=== PATIENT | female | born 1930 | race American Indian/Alaskan Native ===

== ENCOUNTER 2016-09-28 07:34 | Inpatient (IN) | payer MEDICARE ==
[2016-09-28 08:58] LABS: Hematocrit 26.9 % (30.3-42.9); Hemoglobin 8.5 gm/dl (10.1-14.3); Mean Corpuscular HGB Conc 32 % (30-34); Mean Corpuscular Hemoglobin 26 pg (28-32); Mean Corpuscular Volume 82 fl (79-97); Platelet Count 319 K/mm3 (140-440); Red Blood Count 3.26 M/mm3 (3.65-5.03); Red Cell Distribution Width 16.8 % (13.2-15.2); White Blood Count 10.7 K/mm3 (4.5-11.0)
[2016-09-28 09:09] LABS: Calcium 8.2 mg/dL (8.4-10.2); Chloride 101.4 mmol/L (98-107); Potassium 3.7 mmol/L (3.6-5.0)
--- NOTE | 2016-09-28 09:43 | XRay Report ---
CHEST X-RAY, 2 VIEWS: HISTORY: Shortness of breath. FINDINGS: Mild cardiomegaly has developed which appears to be new since 12/20/15. Pulmonary vascularity is borderline. The lungs are clear. No evidence for pneumonia, CHF or pneumothorax. IMPRESSION: Mild cardiomegaly.
[2016-09-28 09:55] LABS: Basophils % (Manual) 0 % (0.0-1.8); Blastocytes % (Manual) 0 %; Eosinophils % (Manual) 0 % (0.0-4.3)
[2016-09-28 09:56] LABS: Anisocytosis 1+; Diff Status Complete; Poikilocytosis 1+; Polychromasia 1+; Spherocytes 1+; Stomatocytes Rare; Target Cells Rare
[2016-09-28] MEDS ORDERED: ZOFRAN IV ONE (10:53)
[2016-09-28] MEDS ORDERED: TESSALON PERLES PO ONE (10:53)
[2016-09-28] MEDS ORDERED: MORPHINE IV ONE (10:53)
[2016-09-28] MEDS ORDERED: CATAPRES PO ONE (10:53)
[2016-09-28] MEDS ORDERED: PROTONIX IV ONE (10:54)
--- NOTE | 2016-09-28 11:07 | Emergency Department Report ---
- General Chief Complaint: Dyspnea/Respdistress Stated Complaint: SOB/FATIGUE/VOMITING Time Seen by Provider: 09/28/16 10:10 Source: patient, family Mode of arrival: Ambulatory Limitations: Other - History of Present Illness Initial Comments: 85-year-old female with multiple medical problems presents with cough productive of green phlegm and coffee-ground emesis intermittently 2 days. Several episodes of posttussive vomiting. Poor by mouth intake. Pain around colostomy site and skin area. Good colostomy output without melena or hematochezia. BP elevated. Patient did not have her morning medications. 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 History of blood transfusion for anemia in the past. MD Complaint: cough -: days(s) (2) Severity: moderate Quality: aching (diffuse, head, abd, myalgias) Consistency: constant Improves With: nothing Worsens With: other (cough) Context: other (denies travel, sick contacts) Associated Symptoms: myalgias, cough, shortness of breath, abdominal pain, nausea, vomiting (coffee grounds 2-3 episodes), weight loss, other (no melena, no blood in stool). denies: fever, chills, diaphoresis, stiff neck, chest pain , diarrhea, dysuria, rash, right sweats Treatments Prior to Arrival: none - Related Data Home Medications Medication Instructions Recorded Confirmed Last Taken Carvedilol [Coreg] 25 mg PO BID 04/03/15 09/28/16 09/28/16 Mirtazapine 7.5 mg PO QHS 09/28/16 09/28/16 09/28/16 Allergies Allergy/AdvReac Type Severity Reaction Status Date / Time No Known Allergies Allergy Verified 03/18/15 10:53 ED Review of Systems ROS: Stated complaint: SOB/FATIGUE/VOMITING Other details as noted in HPI Comment: All other systems reviewed and negative Other: Constitutional: No fevers chills Eyes: No eye pain visual changes ENT: No ear pain or throat pain Neck: Denies pain Respiratory: As per HPI Cardiovascular: Denies chest pain GI: As per HPI : Denies dysuria Musculoskeletal: Diffuse body pain Skin: Denies rash, lesions, erythema Neurologic: Positive headache Psychiatric: Denies suicidal ideation, hallucinations ED Past Medical Hx - Past Medical History Previous Medical History?: Yes Hx Hypertension: Yes (27YRS) Hx Congestive Heart Failure: Yes Hx Deep Vein Thrombosis: Yes Hx Renal Disease: Yes Hx Arthritis: Yes Hx Asthma: Yes Hx COPD: Yes Additional medical history: Anemia requiring blood transfusion - Surgical History Past Surgical History?: Yes Additional Surgical History: FILTER FOR CLOTS. 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 - Social History Smoking Status: Never Smoker Substance Use Type: None - Medications Home Medications: Home Medications Medication Instructions Recorded Confirmed Last Taken Type Carvedilol [Coreg] 25 mg PO BID 04/03/15 09/28/16 09/28/16 History Mirtazapine 7.5 mg PO QHS 09/28/16 09/28/16 09/28/16 History ED Physical Exam - General Limitations: Other - Other Other exam information: General: No limitations, mild distress secondary to pain Head exam: Atraumatic, normocephalic Eyes exam: Normal appearance ENT: Moist mucous membrane, normal oropharynx Neck exam: Normal inspection, full range of motion, no meningismus nontender Respiratory exam: Mild crackle at the bases. Frequent coughing productive of greenish sputum Cardiovascular: Normal rate and rhythm, normal heart sounds Abdomen: Soft, nondistended, left lower quadrant colostomy, pink stoma, mild tenderness around colostomy site, brown colostomy output without melena or gross blood. Normal bowel sounds. No rebound or guarding. Extremity: Full range of motion normal inspection no deformity Back: Normal Inspection, full range of motion, no tenderness Neurologic: Alert, oriented x3, cranial nerves intact, no motor or sensory deficit Psychiatric: normal affect, normal mood Skin: Warm, dry, intact ED Course Vital Signs 09/28/16 09/28/16 09/28/16 07:57 09:16 09:44 Temperature 99.6 F 99.5 F Pulse Rate 95 H 95 H Respiratory 20 20 20 Rate Blood Pressure 202/125 Blood Pressure 196/101 [Right] O2 Sat by Pulse 95 92 95 Oximetry - Reevaluation(s) Reevaluation #1: 09/28/16 11:09 Zofran, morphine, clonidine, Tessalon Perles, and azithromycin ordered in the ED. 09/28/16 11:16 ED Medical Decision Making - Lab Data Result diagrams: 09/28/16 08:23 09/28/16 08:23 Lab Results 12/29/16 12/29/16 12/29/16 Range/Units 07:44 08:23 08:23 WBC 10.7 (4.5-11.0) K/mm3 RBC 3.26 L (3.65-5.03) M/mm3 Hgb 8.5 L (10.1-14.3) gm/dl Hct 26.9 L (30.3-42.9) % MCV 82 (79-97) fl MCH 26 L (28-32) pg MCHC 32 (30-34) % RDW 16.8 H (13.2-15.2) % Plt Count 319 (140-440) K/mm3 Add Manual Diff Complete Total Counted 100 Seg Neutrophils % Design Transferrer Seg Neuts % (Manual) 66.0 (40.0-70.0) % Band Neutrophils % 21.0 % Lymphocytes % (Manual) 3.0 L (13.4-35.0) % Reactive Lymphs % (Man) 0 % Monocytes % (Manual) 7.0 (0.0-7.3) % Eosinophils % (Manual) 0 (0.0-4.3) % Basophils % (Manual) 0 (0.0-1.8) % Metamyelocytes % 2.0 % Myelocytes % 1.0 % Promyelocytes % 0 % Blast Cells % 0 % Nucleated RBC % Not Reportable Seg Neutrophils # Man 7.1 (1.8-7.7) K/mm3 Band Neutrophils # 2.2 K/mm3 Lymphocytes # (Manual) 0.3 L (1.2-5.4) K/mm3 Abs React Lymphs (Man) 0.0 K/mm3 Monocytes # (Manual) 0.7 (0.0-0.8) K/mm3 Eosinophils # (Manual) 0.0 (0.0-0.4) K/mm3 Basophils # (Manual) 0.0 (0.0-0.1) K/mm3 Metamyelocytes # 0.2 K/mm3 Myelocytes # 0.1 K/mm3 Promyelocytes # 0.0 K/mm3 Blast Cells # 0.0 K/mm3 WBC Morphology Not Reportable Hypersegmented Neuts Not Reportable Hyposegmented Neuts Not Reportable Hypogranular Neuts Not Reportable Smudge Cells Not Reportable Toxic Granulation Not Reportable Toxic Vacuolation Not Reportable Dohle Bodies Not Reportable Pelger-Huet Anomaly Not Reportable Aida Rods Not Reportable Platelet Estimate Appears normal Clumped Platelets Not Reportable Plt Clumps, EDTA Not Reportable Large Platelets Not Reportable Giant Platelets Not Reportable Platelet Satelliting Not Reportable Plt Morphology Comment Not Reportable RBC Morphology Not Reportable Dimorphic RBCs Not Reportable Polychromasia 1+ Hypochromasia Not Reportable Poikilocytosis 1+ Anisocytosis 1+ Microcytosis Not Reportable Macrocytosis Not Reportable Spherocytes 1+ Pappenheimer Bodies Not Reportable Sickle Cells Not Reportable Target Cells Rare Tear Drop Cells Not Reportable Ovalocytes Not Reportable Stomatocytes Rare Helmet Cells Not Reportable [place] Bodies Not Reportable [place] Rings Not Reportable Bernard Cells Not Reportable Bite Cells Not Reportable Crenated Cell Not Reportable Elliptocytes Not Reportable Acanthocytes (Spur) Not Reportable Rouleaux Not Reportable Hemoglobin C Crystals Not Reportable Schistocytes Not Reportable Malaria parasites Not Reportable Jalil Bodies Not Reportable Hem Pathologist Commnt No Sodium 140 (137-145) mmol/L Potassium 3.7 (3.6-5.0) mmol/L Chloride 101.4 (98-107) mmol/L Carbon Dioxide 17 L (22-30) mmol/L Anion Gap 25 mmol/L BUN 31 H (7-17) mg/dL Creatinine 3.1 H (0.7-1.2) mg/dL Estimated GFR 17 ml/min BUN/Creatinine Ratio 10.00 % Glucose 161 H (65-100) mg/dL POC Glucose 166 H (70-105) Calcium 8.2 L (8.4-10.2) mg/dL Troponin T 0.194 H* (0.00-0.029) ng/mL Triglycerides 89 (2-149) mg/dL Cholesterol 151 (50-199) mg/dL LDL Cholesterol Direct 69 (50-130) mg/dL HDL Cholesterol 65 H (40-59) mg/dL Cholesterol/HDL Ratio 2.32 % - EKG Data -: EKG Interpreted by Me (sinus, frequent PVCs, rate 94, RBB, LAFB) - EKG Data When compared to previous EKG there are: no significant change (compared to ) - Radiology Data Radiology results: report reviewed Chest x-ray PA and lateral: Mild cardiomegaly, borderline pulmonary vasculature 12/20/2015 - Medical Decision Making Vomiting appears to be intermittent and without any signs of current GI bleeding. Chronic renal insufficiency at baseline the patient now has a slightly elevated troponin likely secondary to chronic renal insufficiency but has been negative in the past. Patient denies chest pain but does complain of shortness of breath. Repeat cardiac enzymes pending. Patient will be admitted due to her current respiratory symptoms and possible chest x-ray changes. Antibiotics/azithromycin initiated - Differential Diagnosis pneumonia, bronchitis, CHF, PUD, esophagitis Critical Care Time: No Critical care attestation.: If time is entered above; I have spent that time in minutes in the direct care of this critically ill patient, excluding procedure time. ED Disposition Clinical Impression: Elevated troponin, Colostomy in place Acute bronchitis Qualifiers: Bronchitis organism: other organism Qualified Code(s): J20.8 - Acute bronchitis due to other specified organisms CHF (congestive heart failure) Qualifiers: Congestive heart failure type: unspecified congestive heart failure type Congestive heart failure chronicity: unspecified congestive heart failure chronicity Qualified Code(s): I50.9 - Heart failure, unspecified HTN (hypertension) Qualifiers: Hypertension type: essential hypertension Qualified Code(s): I10 - Essential ( primary) hypertension Chronic renal insufficiency Qualifiers: Chronic kidney disease stage: unspecified stage Qualified Code(s): N18.9 - Chronic kidney disease, unspecified Anemia Qualifiers: Anemia type: unspecified type Qualified Code(s): D64.9 - Anemia, unspecified Vomiting Qualifiers: Vomiting type: unspecified Vomiting Intractability: non-intractable Nausea presence: with nausea Qualified Code(s): R11.2 - Nausea with vomiting, unspecified Disposition: OP ADMITTED IP TO THIS HOSP Is pt being admited?: Yes Condition: Stable Time of Disposition: 11:14 (Dr. Beach/ hosp)
[2016-09-28] MEDS ORDERED: ZITHROMAX 500 MG in NACL 0.9% 250ML 250 ML IV ONE (11:30)
--- NOTE | 2016-09-28 11:53 | Admit Criteria Form ---
Admission Criteria Documentation: PULMONARY DISEASE GRG Clinical Indications for Admission to Inpatient Care ( Place 'X' for any and all applicable criteria): Hospital admission is needed for appropriate care of the patient because of ANY ONE of the following(1): [ ]I. Impending or actual respiratory arrest ( Use Respiratory Failure Criteria for severe respiratory disease and long-term mechanical ventilation patients) (4) [ X]II. Severe airflow or ventilation abnormalities (not responsive to emergency and observation care treatment as appropriate) as indicated by ANY ONE of the following(5)(6)(7)(8) : [ ]a) PCO2 > 42 mm Hg (5.6 kPa) and pH < 7.35 (new) [ ]b) Documented PCO2 increase > 5 mm Hg (0.7 kPa) from disease baseline [ ]c) Airflow measurements[A] < 60% of previous best or predicted ( e.g., PEF <300 L/minute) despite intensive emergent treatment[B] [X ]d) Required respiratory treatments that are performable only in acute inpatient setting [ ]III. Severe respiratory findings (not responsive to emergency and observation care treatment as appropriate) including ANY ONE of the following(5)(8)(9): []a) Respiratory distress as indicated by ALL of the following(5)(10): [ ]i) Patient with ANY ONE of the following: [ ]1) Dyspnea (difficulty breathing) [ ]2) Abnormal breathing pattern (eg, chest retractions) [ ]3) Tachypnea [ ]4) Other evidence of difficulty breathing [ ]ii) Evidence of respiratory compromise indicated by ANY ONE of the following: [ ]1) Hypoxemia [ ]2) Altered mental status [ ]3) Other evidence of respiratory compromise (eg, pulmonary edema on chest x-ray) [ ]b) Stridor [ ]c) Gross hemoptysis(11) [ ]d) Acute cyanosis [ ]IV. High-risk pulmonary infection as indicated by ANY ONE of the following( 19)(20)(21)(22): [ ]a) Temperature less than 95 degrees F(35 degrees C) or greater than 103.1 degrees F(39.5 degrees C) [ ]b) Hemodynamic instability that remains after emergency or observation level care (as appropriate) [ ]c) Immunocompromised patient (eg, AIDS, post transplant, neutropenic) [ ]d) History of severe COPD [ ]e) History of severely symptomatic congestive heart failure [ ]f) Other high-risk comorbidity (eg, poorly controlled diabetes, cirrhosis, chronic renal insufficiency) [ ]g) Hypoxemia (new) [ ]h) Outpatient, observation, or recovery facility therapy has failed, is not appropriate, or is not feasible [ ]V. Severe atelectasis or lung collapse(15)(16) [ ]. Tuberculosis requiring inpatient treatment as indicated by ANY ONE of the following(17)(18): [ ]a) New positive acid-fast bacilli sputum smear [ ]b) Positive acid-fast bacilli smear (under current treatment), with ANY ONE of the following: [ ]i) Unexposed household contacts [ ]ii) Infants or immunosuppressed household contacts [ ]iii) Patient unable or unwilling to avoid exposing others [ ]iv) Severe immunocompromised patient (eg, AIDS, post transplant, neutropenic) [ ]VII. Empyema or lung abscess(13)(14) [ ]VIII. Severe pulmonary arterial hypertension or pulmonary vascular disease requiring inpatient care indicated by ANY ONE of the following(24)(25): [ ]a) Initiation or change of vasodilators (IV, subcutaneous, or inhaled) or other vasoactive medications needed [ ]b) IV anticoagulation needed (eg, immediate anticoagulation necessary, alternatives not appropriate) [ ]c) Arterial or pulmonary artery catheter monitoring needed due to infusion or other treatment [ ]IX. Chronic lung disease with severe deterioration (not responsive to emergency and observation care treatment as appropriate) as indicated by ANY ONE of the following (6)(12): [ ]a) SaO2 5% below baseline in patient with chronic hypoxemia [ ]b) New requirement for supplemental oxygen to keep SaO2 at baseline or acceptable level [ ]c) Required supplemental oxygen performable only in acute inpatient setting [ ]d) Severe airflow or ventilation abnormalities [ ]e) Rapid rate of exacerbation onset [ ]f) Previously mobile patient unable to walk between rooms [ ]g) Inability to eat or sleep due to dyspnea [ ]h) Altered mental status [ ]X. Cystic fibrosis with severe deterioration as indicated by ANY ONE of the following(26)(27): [ ]a) Severe exacerbation that does not respond to intensified home therapy [ ]b) Pneumonia [ ]c) Hemoptysis [ ]d) Atelectasis [ ]e) Pneumothorax [ ]f) Respiratory failure [ ]g) Severe exacerbation with patient unable to perform prescribed treatments at home [ ]XI. Severe right heart failure as indicated by ANY ONE of the following(24) (25): [ ]a) Increasing organ failure (eg, liver congestion with significant and worsening or new elevation of transaminases) [ ]b) Anasarca [ ]c) Angina that requires inpatient care (eg, not treatable in emergency or observation level of care) [ ]d) Respiratory distress [ ]e) Syncope [ ]f) SBP < 90 mm Hg (new) [ ]XII. Injury requiring inpatient care (medical) as indicated by ANY ONE of the following(28): [ ]a) Significant inhalation injury (eg, smoke inhalation, other toxic inhalation) (29)(30)(31) [ ]b) Airway obstruction that remains or is unstable after emergency or observation level care(32) [ ]c) Severe pain requiring acute inpatient management [ ]d) Lung contusion [ ]e) Bronchial tree injury [ ]f) Air or fat emboli(33) [ ]g) Other injury not treatable in emergency or observation level care (eg, hemothorax) (34) [ ]XIII. Pulmonary hemorrhage or significant hemoptysis(11)(35)(36) [ ]XIV. Inpatient palliative care needed[C](37)(38)(39)(40) [ ]XV. Complications of lung transplant (eg, rejection, failure, respiratory infection) (23) [ ]XVI. Pulmonary Disease and ANY ONE of the following: [ ]a) General Admission Criteria [ ]b) Pediatric General Admission Criteria The original [facility] [employer] content created by [facility] has been revised. The portions of the content which have been revised are identified through the use of italic text or in bold, and [facility] has neither reviewed nor approved the modified material. All other unmodified content is copyright [facility]. Please see references footnoted in the original [facility] edition 2016 Admission Criteria Met: Yes
--- NOTE | 2016-09-28 13:00 | History and Physical Report ---
History of Present Illness Date of examination: 09/28/16 Date of admission: 09/28/16 Chief complaint: sob, cough History of present illness: This is an 85-year-old female presents with chief complaint of cough and shortness of breath for the past 2 days. Patient states that she has had cough productive of green, brown and yellow sputum intermittently over the past 2 days. Patient denies any subjective fever chills. Patient does report generalized malaise and myalgias. Patient denies any chest pain. Patient states that her shortness of breath is worse with exertion. Patient reports poor appetite but good colostomy output without melena or hematochezia. Patient denies any headache or visual disturbances. Past History Past Medical History: arthritis, COPD, diabetes, heart failure, hypertension Past Surgical History: No surgical history Social history: no significant social history Family history: no significant family history Medications and Allergies Allergies Allergy/AdvReac Type Severity Reaction Status Date / Time No Known Allergies Allergy Verified 03/18/15 10:53 Home Medications Medication Instructions Recorded Confirmed Last Taken Type Carvedilol [Coreg] 25 mg PO BID 04/03/15 09/28/16 09/28/16 History Mirtazapine 7.5 mg PO QHS 09/28/16 09/28/16 09/28/16 History Review of Systems All systems: negative Exam - Constitutional Vitals: Temp Pulse Resp BP Pulse Ox 99.5 F 99 H 20 201/108 95 09/28/16 09:16 09/28/16 11:38 09/28/16 09:44 09/28/16 11:38 09/28/16 09:44 General appearance: Present: no acute distress, well-nourished - EENT Eyes: Present: PERRL ENT: hearing intact, clear oral mucosa - Neck Neck: Present: supple, normal ROM - Respiratory Respiratory effort: normal Respiratory: bilateral: diminished, rhonchi, wheezing (faint) - Cardiovascular Heart Sounds: Present: S1 & S2. Absent: rub, click - Extremities Extremities: pulses symmetrical, No edema Peripheral Pulses: within normal limits - Abdominal General gastrointestinal: Present: soft, non-tender, non-distended, normal bowel sounds Female genitourinary: Present: normal - Integumentary Integumentary: Present: clear, warm, dry - Musculoskeletal Musculoskeletal: gait normal, strength equal bilaterally - Psychiatric Psychiatric: appropriate mood/affect, intact judgment & insight - Neurologic Neurologic: CNII-XII intact, moves all extremities Results - Labs CBC & Chem 7: 09/28/16 08:23 09/28/16 08:23 Labs: Laboratory Last Values WBC 10.7 K/mm3 (4.5-11.0) 09/28/16 08:23 RBC 3.26 M/mm3 (3.65-5.03) L 09/28/16 08:23 Hgb 8.5 gm/dl (10.1-14.3) L 09/28/16 08:23 Hct 26.9 % (30.3-42.9) L 09/28/16 08:23 MCV 82 fl (79-97) 09/28/16 08:23 MCH 26 pg (28-32) L 09/28/16 08:23 MCHC 32 % (30-34) 09/28/16 08:23 RDW 16.8 % (13.2-15.2) H 09/28/16 08:23 Plt Count 319 K/mm3 (140-440) 09/28/16 08:23 Add Manual Diff Complete 09/28/16 08:23 Total Counted 100 09/28/16 08:23 Seg Neutrophils % Hand Driller 09/28/16 08:23 Seg Neuts % (Manual) 66.0 % (40.0-70.0) 09/28/16 08:23 Band Neutrophils % 21.0 % 09/28/16 08:23 Lymphocytes % (Manual) 3.0 % (13.4-35.0) L 09/28/16 08:23 Reactive Lymphs % (Man) 0 % 09/28/16 08:23 Monocytes % (Manual) 7.0 % (0.0-7.3) 09/28/16 08:23 Eosinophils % (Manual) 0 % (0.0-4.3) 09/28/16 08:23 Basophils % (Manual) 0 % (0.0-1.8) 09/28/16 08:23 Metamyelocytes % 2.0 % 09/28/16 08:23 Myelocytes % 1.0 % 09/28/16 08:23 Promyelocytes % 0 % 09/28/16 08:23 Blast Cells % 0 % 09/28/16 08:23 Nucleated RBC % Not Reportable 09/28/16 08:23 Seg Neutrophils # Man 7.1 K/mm3 (1.8-7.7) 09/28/16 08:23 Band Neutrophils # 2.2 K/mm3 09/28/16 08:23 Lymphocytes # (Manual) 0.3 K/mm3 (1.2-5.4) L 09/28/16 08:23 Abs React Lymphs (Man) 0.0 K/mm3 09/28/16 08:23 Monocytes # (Manual) 0.7 K/mm3 (0.0-0.8) 09/28/16 08:23 Eosinophils # (Manual) 0.0 K/mm3 (0.0-0.4) 09/28/16 08:23 Basophils # (Manual) 0.0 K/mm3 (0.0-0.1) 09/28/16 08:23 Metamyelocytes # 0.2 K/mm3 09/28/16 08:23 Myelocytes # 0.1 K/mm3 09/28/16 08:23 Promyelocytes # 0.0 K/mm3 09/28/16 08:23 Blast Cells # 0.0 K/mm3 09/28/16 08:23 WBC Morphology Not Reportable 09/28/16 08:23 Hypersegmented Neuts Not Reportable 09/28/16 08:23 Hyposegmented Neuts Not Reportable 09/28/16 08:23 Hypogranular Neuts Not Reportable 09/28/16 08:23 Smudge Cells Not Reportable 09/28/16 08:23 Toxic Granulation Not Reportable 09/28/16 08:23 Toxic Vacuolation Not Reportable 09/28/16 08:23 Dohle Bodies Not Reportable 09/28/16 08:23 Pelger-Huet Anomaly Not Reportable 09/28/16 08:23 Aida Rods Not Reportable 09/28/16 08:23 Platelet Estimate Appears normal 09/28/16 08:23 Clumped Platelets Not Reportable 09/28/16 08:23 Plt Clumps, EDTA Not Reportable 09/28/16 08:23 Large Platelets Not Reportable 09/28/16 08:23 Giant Platelets Not Reportable 09/28/16 08:23 Platelet Satelliting Not Reportable 09/28/16 08:23 Plt Morphology Comment Not Reportable 09/28/16 08:23 RBC Morphology Not Reportable 09/28/16 08:23 Dimorphic RBCs Not Reportable 09/28/16 08:23 Polychromasia 1+ 09/28/16 08:23 Hypochromasia Not Reportable 09/28/16 08:23 Poikilocytosis 1+ 09/28/16 08:23 Anisocytosis 1+ 09/28/16 08:23 Microcytosis Not Reportable 09/28/16 08:23 Macrocytosis Not Reportable 09/28/16 08:23 Spherocytes 1+ 09/28/16 08:23 Pappenheimer Bodies Not Reportable 09/28/16 08:23 Sickle Cells Not Reportable 09/28/16 08:23 Target Cells Rare 09/28/16 08:23 Tear Drop Cells Not Reportable 09/28/16 08:23 Ovalocytes Not Reportable 09/28/16 08:23 Stomatocytes Rare 09/28/16 08:23 Helmet Cells Not Reportable 09/28/16 08:23 Munoz-Temperance Bodies Not Reportable 09/28/16 08:23 Morton Rings Not Reportable 09/28/16 08:23 Bernard Cells Not Reportable 09/28/16 08:23 Bite Cells Not Reportable 09/28/16 08:23 Crenated Cell Not Reportable 09/28/16 08:23 Elliptocytes Not Reportable 09/28/16 08:23 Acanthocytes (Spur) Not Reportable 09/28/16 08:23 Rouleaux Not Reportable 09/28/16 08:23 Hemoglobin C Crystals Not Reportable 09/28/16 08:23 Schistocytes Not Reportable 09/28/16 08:23 Malaria parasites Not Reportable 09/28/16 08:23 Jalil Bodies Not Reportable 09/28/16 08:23 Hem Pathologist Commnt No 09/28/16 08:23 Sodium 140 mmol/L (137-145) 09/28/16 08:23 Potassium 3.7 mmol/L (3.6-5.0) 09/28/16 08:23 Chloride 101.4 mmol/L (98-107) 09/28/16 08:23 Carbon Dioxide 17 mmol/L (22-30) L 09/28/16 08:23 Anion Gap 25 mmol/L 09/28/16 08:23 BUN 31 mg/dL (7-17) H 09/28/16 08:23 Creatinine 3.1 mg/dL (0.7-1.2) H 09/28/16 08:23 Estimated GFR 17 ml/min 09/28/16 08:23 BUN/Creatinine Ratio 10.00 % 09/28/16 08:23 Glucose 161 mg/dL (65-100) H 09/28/16 08:23 POC Glucose 166 (70-105) H 09/28/16 07:44 Calcium 8.2 mg/dL (8.4-10.2) L 09/28/16 08:23 Troponin T 0.194 ng/mL (0.00-0.029) H* 09/28/16 08:23 Triglycerides 89 mg/dL (2-149) 09/28/16 08:23 Cholesterol 151 mg/dL (50-199) 09/28/16 08:23 LDL Cholesterol Direct 69 mg/dL (50-130) 09/28/16 08:23 HDL Cholesterol 65 mg/dL (40-59) H 09/28/16 08:23 Cholesterol/HDL Ratio 2.32 % 09/28/16 08:23 Blood Type B POSITIVE 09/28/16 12:12 Assessment and Plan Assessment and plan: 1. Acute bronchitis. Patient will be admitted and placed on IV antibiotics. We will follow-up chest x-ray. Patient may have early pneumonia. We will follow blood and sputum cultures. 2. Acute COPD exacerbation. Patient will be admitted by some COPD pathway. We will continue to monitor pulse oximetry. Bronchodilators last nebulizer treatment. Continue O2. Supportive care. 3. Chronic CHF, compensated. Consider echocardiogram. Check BNP. Chest x- ray and clinical exam reveals no acute decompensation. 4. Elevated troponin. Etiology may be secondary to #3 along with chronic renal insufficiency. However, patient has not had elevated troponins in the past. Patient denies any chest pain. Check echocardiogram. Consider cardiology consultation. 5. CKD. Patient appears to be at her baseline creatinine. Continue to monitor BMP. 6. Diabetes mellitus type 2. Continue sliding scale and Accu-Cheks. 1800 ADA diet. 7. DVT prophylaxis. Lovenox daily.
[2016-09-28] MEDS ORDERED: D50W (25GM) IV PRN (13:07)
[2016-09-28] MEDS ORDERED: ZOFRAN IV PRN (13:07)
[2016-09-28] MEDS ORDERED: DULCOLAX PR PRN (13:07)
[2016-09-28] MEDS ORDERED: MILK OF MAGNESIA PO PRN (13:07)
[2016-09-28] MEDS ORDERED: TYLENOL PO PRN (13:07)
[2016-09-28] MEDS ORDERED: ZITHROMAX 500 MG in NACL 0.9% 250ML 250 ML IV SCH (13:14)
[2016-09-28] MEDS ORDERED: NORMODYNE PO ONE (16:36)
[2016-09-28] MEDS ORDERED: NORMODYNE PO SCH (17:00)
[2016-09-28 17:45] LABS: Creatine Kinase MB 3.4 ng/mL (0.0-4.0)
[2016-09-28] MEDS: DUONEB 0.5 MG-3 MG/3 ML SOLN IH SCH ×2 (18:21→20:35)
[2016-09-28] MEDS: COREG PO SCH (21:21)
[2016-09-28] MEDS: REMERON PO SCH (21:26)
[2016-09-28] MEDS: NORMODYNE PO SCH (21:26)
[2016-09-28] MEDS ORDERED: NON-FORMULARY (Mirtazapine [Mirtazapine] 7.5 MG) PO SCH (22:00)
[2016-09-29 06:18] LABS: Hematocrit 27.9 % (30.3-42.9); Hemoglobin 8.6 gm/dl (10.1-14.3); Mean Corpuscular HGB Conc 31 % (30-34); Mean Corpuscular Volume 82 fl (79-97); Platelet Count 316 K/mm3 (140-440); Red Blood Count 3.39 M/mm3 (3.65-5.03); Red Cell Distribution Width 16.6 % (13.2-15.2)
[2016-09-29 06:19] LABS: Mean Corpuscular Hemoglobin 25 pg (28-32)
[2016-09-29 06:39] LABS: BUN/Creatinine Ratio 12.16; Calcium 7.6 mg/dL (8.4-10.2); Chloride 101.6 mmol/L (98-107)
[2016-09-29 06:42] LABS: Potassium 4.6 mmol/L (3.6-5.0)
[2016-09-29] MEDS: DUONEB 0.5 MG-3 MG/3 ML SOLN IH SCH ×3 (08:05→21:00)
[2016-09-29 08:34] LABS: Anisocytosis 1+; Basophils % (Manual) 0 % (0.0-1.8); Blastocytes % (Manual) 0 %; Eosinophils % (Manual) 0 % (0.0-4.3); Total Cells Counted Percent 0
[2016-09-29 08:35] LABS: Poikilocytosis 1+; Polychromasia 1+; Spherocytes 1+
[2016-09-29 08:37] LABS: Diff Status Complete
[2016-09-29] MEDS ORDERED: LOVENOX SUB-Q SCH (10:00)
[2016-09-29] MEDS: ROCEPHIN/NS 1 GM/50 ML 50 ML IV SCH (12:29)
[2016-09-29] MEDS: NORMODYNE PO SCH ×2 (12:30→21:45)
[2016-09-29] MEDS: ZITHROMAX 500 MG in NACL 0.9% 250ML 250 ML IV SCH (12:30)
[2016-09-29] MEDS: LOVENOX SUB-Q SCH (12:31)
[2016-09-29] MEDS: COREG PO SCH ×2 (12:31→21:46)
--- NOTE | 2016-09-29 13:58 | Progress Note ---
Assessment and Plan Assessment and plan: Acute COPD exacerbation. * We will continue to monitor pulse oximetry. * Bronchodilators with nebulizer treatment. * Continue O2. Supportive care. Acute bronchitis. * continue on IV antibiotics. No infiltrates on chest x-ray. * Patient may have early pneumonia. We will follow blood and sputum cultures. Chronic CHF, compensated. * Ordered 2-D echocardiogram. * Chest x-ray and clinical exam reveals no acute decompensation. Elevated troponin. * Etiology may be secondary to chronic renal insufficiency. * Check echocardiogram. CKD. * Patient appears to be at her baseline creatinine. * Continue to monitor BMP. Diabetes mellitus type 2. * Continue sliding scale and Accu-Cheks. 1800 ADA diet. History Interval history: Patient seen and examined. Medical records and medication list reviewed. No acute event overnight noted by the RN. Patient complains of difficulty breathing with minimal exertion. Patient is tolerating diet. Patient has colostomy bag in place which appeared to be getting filled with lot of air, but patient denies abdominal pain, ordered abdominal x-ray Discussed plan of care at bedside with patient. Hospitalist Physical - Physical exam Narrative exam: GENERAL: Elderly [id number] -[place] female lying on bed appeared to be in no discomfort. HEENT: Normocephalic. Atraumatic. No conjunctival congestion or icterus. Patient has moist mucous membranes. NECK: Supple. Trachea midline. CHEST/LUNGS: Clear to auscultated bilaterally, breathing nonlabored. No wheezes crackles or rhonchi. HEART/CARDIOVASCULAR: Regular in rate and rhythm. S1 and S2 positive. ABDOMEN: Abdomen is soft, nontender, obese. Patient has hypoactive bowel sounds. Colostomy bag in place filled with air and stool SKIN: There is no rash. Warm and dry. NEURO: No focal motor deficit. Follows command. MUSCULOSKELETAL: No joint effusion or tenderness. EXTRIMITY: No edema, no cyanosis or clubbing. PSYCH: Cooperative. - Constitutional Vitals: Temp Pulse Resp BP Pulse Ox 97.2 F L 69 18 167/90 100 09/29/16 13:27 09/29/16 13:27 09/29/16 13:27 09/29/16 13:27 09/29/16 13:27 General appearance: Present: no acute distress, well-nourished Results - Labs CBC & Chem 7: 09/29/16 05:16 09/30/16 06:48 Labs: Laboratory Last Values WBC 10.0 K/mm3 (4.5-11.0) 09/29/16 05:16 RBC 3.39 M/mm3 (3.65-5.03) L 09/29/16 05:16 Hgb 8.6 gm/dl (10.1-14.3) L 09/29/16 05:16 Hct 27.9 % (30.3-42.9) L 09/29/16 05:16 MCV 82 fl (79-97) 09/29/16 05:16 MCH 25 pg (28-32) L 09/29/16 05:16 MCHC 31 % (30-34) 09/29/16 05:16 RDW 16.6 % (13.2-15.2) H 09/29/16 05:16 Plt Count 316 K/mm3 (140-440) 09/29/16 05:16 Add Manual Diff Complete 09/29/16 05:16 Total Counted 100 09/29/16 05:16 Seg Neutrophils % Drivability Technician 09/29/16 05:16 Seg Neuts % (Manual) 70.0 % (40.0-70.0) 09/29/16 05:16 Band Neutrophils % 27.0 % 09/29/16 05:16 Lymphocytes % (Manual) 3.0 % (13.4-35.0) L 09/29/16 05:16 Reactive Lymphs % (Man) 0 % 09/29/16 05:16 Monocytes % (Manual) 0 % (0.0-7.3) 09/29/16 05:16 Eosinophils % (Manual) 0 % (0.0-4.3) 09/29/16 05:16 Basophils % (Manual) 0 % (0.0-1.8) 09/29/16 05:16 Metamyelocytes % 0 % 09/29/16 05:16 Myelocytes % 0 % 09/29/16 05:16 Promyelocytes % 0 % 09/29/16 05:16 Blast Cells % 0 % 09/29/16 05:16 Nucleated RBC % Not Reportable 09/29/16 05:16 Seg Neutrophils # Man 7.0 K/mm3 (1.8-7.7) 09/29/16 05:16 Band Neutrophils # 2.7 K/mm3 09/29/16 05:16 Lymphocytes # (Manual) 0.3 K/mm3 (1.2-5.4) L 09/29/16 05:16 Abs React Lymphs (Man) 0.0 K/mm3 09/29/16 05:16 Monocytes # (Manual) 0.0 K/mm3 (0.0-0.8) 09/29/16 05:16 Eosinophils # (Manual) 0.0 K/mm3 (0.0-0.4) 09/29/16 05:16 Basophils # (Manual) 0.0 K/mm3 (0.0-0.1) 09/29/16 05:16 Metamyelocytes # 0.0 K/mm3 09/29/16 05:16 Myelocytes # 0.0 K/mm3 09/29/16 05:16 Promyelocytes # 0.0 K/mm3 09/29/16 05:16 Blast Cells # 0.0 K/mm3 09/29/16 05:16 WBC Morphology Not Reportable 09/29/16 05:16 Hypersegmented Neuts Not Reportable 09/29/16 05:16 Hyposegmented Neuts Not Reportable 09/29/16 05:16 Hypogranular Neuts Not Reportable 09/29/16 05:16 Smudge Cells Not Reportable 09/29/16 05:16 Toxic Granulation Not Reportable 09/29/16 05:16 Toxic Vacuolation Not Reportable 09/29/16 05:16 Dohle Bodies Not Reportable 09/29/16 05:16 Pelger-Huet Anomaly Not Reportable 09/29/16 05:16 Aida Rods Not Reportable 09/29/16 05:16 Platelet Estimate Appears normal 09/29/16 05:16 Clumped Platelets Not Reportable 09/29/16 05:16 Plt Clumps, EDTA Not Reportable 09/29/16 05:16 Large Platelets Not Reportable 09/29/16 05:16 Giant Platelets Not Reportable 09/29/16 05:16 Platelet Satelliting Not Reportable 09/29/16 05:16 Plt Morphology Comment Not Reportable 09/29/16 05:16 RBC Morphology Not Reportable 09/29/16 05:16 Dimorphic RBCs Not Reportable 09/29/16 05:16 Polychromasia 1+ 09/29/16 05:16 Hypochromasia Not Reportable 09/29/16 05:16 Poikilocytosis 1+ 09/29/16 05:16 Anisocytosis 1+ 09/29/16 05:16 Microcytosis Not Reportable 09/29/16 05:16 Macrocytosis Not Reportable 09/29/16 05:16 Spherocytes 1+ 09/29/16 05:16 Pappenheimer Bodies Not Reportable 09/29/16 05:16 Sickle Cells Not Reportable 09/29/16 05:16 Target Cells Not Reportable 09/29/16 05:16 Tear Drop Cells Not Reportable 09/29/16 05:16 Ovalocytes Not Reportable 09/29/16 05:16 Stomatocytes Rare 09/28/16 08:23 Helmet Cells Not Reportable 09/29/16 05:16 Munoz-Boyd Bodies Not Reportable 09/29/16 05:16 Walnut Rings Not Reportable 09/29/16 05:16 Nelson Cells Not Reportable 09/29/16 05:16 Bite Cells Not Reportable 09/29/16 05:16 Crenated Cell Not Reportable 09/29/16 05:16 Elliptocytes Not Reportable 09/29/16 05:16 Acanthocytes (Spur) Not Reportable 09/29/16 05:16 Rouleaux Not Reportable 09/29/16 05:16 Hemoglobin C Crystals Not Reportable 09/29/16 05:16 Schistocytes Not Reportable 09/29/16 05:16 Malaria parasites Not Reportable 09/29/16 05:16 Jalil Bodies Not Reportable 09/29/16 05:16 Hem Pathologist Commnt No 09/29/16 05:16 Sodium 138 mmol/L (137-145) 09/29/16 05:16 Potassium 4.6 mmol/L (3.6-5.0) D 09/29/16 05:16 Chloride 101.6 mmol/L (98-107) 09/29/16 05:16 Carbon Dioxide 16 mmol/L (22-30) L 09/29/16 05:16 Anion Gap 25 mmol/L 09/29/16 05:16 BUN 45 mg/dL (7-17) H 09/29/16 05:16 Creatinine 3.7 mg/dL (0.7-1.2) H 09/29/16 05:16 Estimated GFR 14 ml/min 09/29/16 05:16 BUN/Creatinine Ratio 12.16 % 09/29/16 05:16 Glucose 153 mg/dL (65-100) H 09/29/16 05:16 POC Glucose 209 (70-105) H 09/29/16 12:46 Hemoglobin A1c 5.3 % (4-6) 09/28/16 08:23 Calcium 7.6 mg/dL (8.4-10.2) L 09/29/16 05:16 Total Creatine Kinase 66 units/L (30-135) 09/28/16 16:38 CK-MB (CK-2) 3.4 ng/mL (0.0-4.0) 09/28/16 16:38 CK-MB (CK-2) Rel Index 5.1 (0-4) H 09/28/16 16:38 Troponin T 0.275 ng/mL (0.00-0.029) H* 09/28/16 16:38 Triglycerides 89 mg/dL (2-149) 09/28/16 08:23 Cholesterol 151 mg/dL (50-199) 09/28/16 08:23 LDL Cholesterol Direct 69 mg/dL (50-130) 09/28/16 08:23 HDL Cholesterol 65 mg/dL (40-59) H 09/28/16 08:23 Cholesterol/HDL Ratio 2.32 % 09/28/16 08:23 Blood Type B POSITIVE 09/28/16 12:12 Antibody Screen Negative 09/28/16 12:12
--- NOTE | 2016-09-29 15:59 | Echocardiography Report ---
Transthoracic Echocardiogram Indication: CHF BP: 167/90 Conclusions *Mild concentric left ventricular hypertrophy is observed. *The estimated ejection fraction is 45-50%. *The left ventricular diastolic filling pattern is consistent with pseudonormalization. *Mild aortic leaflet calcification is visualized. *There is trace of aortic regurgitation. *There is no evidence of aortic stenosis. *The mitral valve leaflets are mildly thickened. *There is moderate mitral regurgitation. *There is moderate tricuspid regurgitation. *The right ventricular systolic pressure is calculated at 58 mmHg. *There is evidence of moderate pulmonary hypertension. *There is a minimial pericardial effusion. *The inferior vena cava is dilated. 2.67 cm.collapses.50% Findings Left Ventricle: The left ventricular chamber size is normal. Mild concentric left ventricular hypertrophy is observed. Global left ventricular systolic function is normal. The estimated ejection fraction is 45-50%. The left ventricular diastolic filling pattern is consistent with pseudonormalization. Left Atrium: The left atrium is normal in size with no visual thrombus identified. Right Ventricle: The right ventricular cavity size is normal. The right ventricular global systolic function is normal. Right Atrium: The right atrium appears normal. The interatrial septum appears normal. Aortic Valve: The aortic valve leaflets are mildly thickened. Mild aortic leaflet calcification is visualized. There is trace of aortic regurgitation. There is no evidence of aortic stenosis. Mitral Valve: The mitral valve leaflets are mildly thickened. Mild mitral leaflet calcification is visualized. There is moderate mitral regurgitation. There is no evidence of mitral stenosis. Tricuspid Valve: The tricuspid valve leaflets are normal. There is moderate tricuspid regurgitation. The right ventricular systolic pressure is calculated at 58 mmHg. There is evidence of moderate pulmonary hypertension. There is no tricuspid stenosis. Pulmonic Valve: The pulmonic valve appears normal. There is trace pulmonic regurgitation. There is no pulmonic stenosis. Pericardium: There is no pericardial effusion. There is a minimial pericardial effusion. Aorta: There is no dilatation of the ascending aorta. There is no dilatation of the aortic arch. There is no dilatation of the descending thoracic aorta. There is no dilatation of the aortic root. Venous: The inferior vena cava is dilated. Measurements Chambers MM Name Value Normal Range Ao root diameter (MM) 2.7 cm (2 - 3.7) LA dimension (AP) MM 3.7 cm (1.9 - 4) LA:Ao ratio (MM) 1.37 ratio - AV cusp separation (MM) 1.2 cm (1.5 - 2.6) Chambers 2D Name Value Normal Range IVSd (2D) 1.36 cm (0.6 - 1.1) LVPWd (2D) 1.32 cm (0.6 - 1.1) IVS:LVPW ratio (2D) 1.03 ratio - LVIDd (2D) 4.59 cm (3.7 - 5.6) LVIDs (2D) 3.19 cm (2 - 3.8) LV FS (Teichholz) (2D) 30.5 % - LV FS (cube) (2D) 30.5 % - EF Teichholz (2D) 58.1 % - LA dimension (AP) 2D 4.2 cm (1.9 - 4) Volumes/Mass Name Value Normal Range LA ESV SP 4CH (MOD) 40 ml - LA ESV SP 2CH (MOD) 40 ml - LA ESV BP (MOD) 41 ml - LA ESV BP (MOD) index 21.9 ml/m2 - Diastolic/Systolic Function Name Value Normal Range MV E-wave Vmax 1.01 m/sec - MV deceleration time 155 msec - MV A-wave Vmax 0.83 m/sec - MV E:A ratio 1.2 ratio - LV septal e' Vmax 0.05 m/sec - LV lateral e' Vmax 0.05 m/sec - LV E:e' septal ratio 21.3 ratio - LV E:e' lateral ratio 19.4 ratio - Aortic Valve Name Value Normal Range AV VTI 24.5 cm - AV mean gradient 3 mmHg - LVOT diameter 2 cm - LVOT VTI 18.6 cm - LVOT mean gradient 2 mmHg - SV LVOT 58 ml - VERONICA (continuity VTI) 2.38 cm2 - Mitral Valve Name Value Normal Range MV PHT 44 msec - MR Vmax 5.32 m/sec - MR VTI 202 cm - MR volume (PISA) 53 ml - MR flow (PISA) 140 ml/sec - MR ERO 0.26 cm2 - MR PISA radius 0.9 cm - MR alias Vmax 27.5 cm/sec - MVA (PHT) 5 cm2 - Tricuspid Valve Name Value Normal Range TR Vmax 3.54 m/sec - TR peak gradient 50 mmHg - RAP 8 mmHg - RVSP 58 mmHg - Pulmonic Valve/Qp:Qs Name Value Normal Range PV Vmax 0.62 m/sec - PV peak gradient 2 mmHg - MD end-diastolic Vmax 1.33 m/sec - RVOT diameter 2.3 cm - PV acceleration time 116 msec -
[2016-09-29] MEDS: REMERON PO SCH (21:45)
[2016-09-30 07:36] LABS: BUN/Creatinine Ratio 11.85; Calcium 6.9 mg/dL (8.4-10.2); Chloride 100.4 mmol/L (98-107); Potassium 4.7 mmol/L (3.6-5.0)
[2016-09-30] MEDS: COREG PO SCH ×2 (08:59→22:22)
[2016-09-30] MEDS: LOVENOX SUB-Q SCH (09:00)
[2016-09-30] MEDS: ROCEPHIN/NS 1 GM/50 ML 50 ML IV SCH (09:00)
[2016-09-30] MEDS: NORMODYNE PO SCH ×2 (09:00→22:20)
[2016-09-30] MEDS: DUONEB 0.5 MG-3 MG/3 ML SOLN IH SCH ×3 (09:42→21:00)
[2016-09-30] MEDS: ZITHROMAX 500 MG in NACL 0.9% 250ML 250 ML IV SCH (09:53)
--- NOTE | 2016-09-30 10:14 | XRay Report ---
KUB: 09/29/16 CLINICAL: Abdominal distention. FINDINGS: Gas throughout a nondistended colon. No distended small bowel. No mass or suspicious calcifications. The bones and soft tissues are normal. IMPRESSION: Negative abdomen.
[2016-09-30] MEDS: MORPHINE IV PRN ×2 (10:30→22:23)
[2016-09-30] MEDS: MUCINEX ER PO SCH ×2 (10:30→22:20)
[2016-09-30] MEDS: PROTONIX PO SCH (10:39)
[2016-09-30] MEDS: NACL 0.45% 1000 ML 1,000 ML IV SCH ×2 (10:40→18:31)
--- NOTE | 2016-09-30 13:03 | Consultation ---
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 CXR showed e/o cardiomegaly however no acute pulmonary edema. Pt is admitted for treatment of COPD exacerbation. patient was found to have worsening renal failure with BUN/Cr rising from 31/3.1mg/dl on admission to 64/5.4 today. Renal consult is requested for management of JAMEE on advanced CKD. no hypotensive episodes during hospitalization reported, pt c/o nausea, loss of appetite for several weeks, however denies active vomiting, diarrhea. no recent NSAIDs or IV contrast exposure reported. patient states that she was following with a life scientist at [facility], had discussion about future dialysis, however never made any decisions. Past History Past Medical History: arthritis, COPD, diabetes, heart failure, hypertension, renal failure Past Surgical History: bowel surgery (h/o IVC filter placement ), Other Social history: lives with family Family history: no significant family history Medications and Allergies Allergies Allergy/AdvReac Type Severity Reaction Status Date / Time No Known Allergies Allergy Verified 03/18/15 10:53 Home Medications Medication Instructions Recorded Confirmed Last Taken Type Carvedilol [Coreg] 25 mg PO BID 04/03/15 09/28/16 09/28/16 History Mirtazapine 7.5 mg PO QHS 09/28/16 09/28/16 09/28/16 History Active Meds: Active Medications Acetaminophen (Tylenol) 650 mg PO Q4H PRN PRN Reason: Pain MILD(1-3)/Fever >100.5/LEBRON Last Admin: 09/29/16 12:28 Dose: 650 mg Albuterol/Ipratropium (Duoneb 0.5 Mg-3 Mg/3 Ml Soln) 1 ampul IH TIDRT [facility] Last Admin: 09/30/16 09:42 Dose: 1 ampul Bisacodyl (Dulcolax) 10 mg WA QDAY PRN PRN Reason: Constipation unrelieved by MOM Carvedilol (Coreg) 25 mg PO BID [facility] Last Admin: 09/30/16 08:59 Dose: 25 mg Dextrose (D50w (25gm)) 50 ml IV PRN PRN PRN Reason: Hypoglycemia Guaifenesin (Mucinex Er) 600 mg PO BID [facility] Last Admin: 09/30/16 10:30 Dose: 600 mg Heparin Sodium (Porcine) (Heparin) 5,000 unit SUB-Q Q8HR [facility] Ceftriaxone Sodium (Rocephin/Ns 1 Gm/50 Ml) 50 mls @ 100 mls/hr IV Q24HR YAMILETH PRN Reason: Protocol Last Admin: 09/30/16 09:00 Dose: 100 mls/hr Azithromycin 500 mg/ Sodium (Chloride) 250 mls @ 250 mls/hr IV DAILY [facility] Last Admin: 09/30/16 09:53 Dose: 250 mls/hr Sodium Chloride (Nacl 0.45% 1000 Ml) 1,000 mls @ 75 mls/hr IV DIRECT [facility] Last Admin: 09/30/16 10:40 Dose: 125 mls/hr Insulin Human Regular (Novolin R) 0 units SUB-Q ACHS [facility] PRN Reason: Protocol Last Admin: 09/30/16 08:59 Dose: 3 units Labetalol HCl (Normodyne) 100 mg PO BID [facility] Last Admin: 09/30/16 09:00 Dose: Not Given Magnesium Hydroxide (Milk Of Magnesia) 30 ml PO Q4H PRN PRN Reason: Constipation Methylprednisolone Sodium Succinate (Solu-Medrol) 40 mg IV Q12HR [facility] Last Admin: 09/30/16 09:00 Dose: 40 mg Mirtazapine (Remeron) 7.5 mg PO QHS [facility] Last Admin: 09/29/16 21:45 Dose: 7.5 mg Morphine Sulfate (Morphine) 2 mg IV Q4H PRN PRN Reason: Pain, Moderate (4-6) Last Admin: 09/30/16 10:30 Dose: 2 mg Ondansetron HCl (Zofran) 4 mg IV Q8H PRN PRN Reason: N/V unrelieved by Melonie Pantoprazole Sodium (Protonix) 40 mg PO QDAY [facility] Last Admin: 09/30/16 10:39 Dose: 40 mg Review of Systems All systems: negative Constitutional: weight loss, anorexia, fatigue, weakness, poor appetite Cardiovascular: shortness of breath, dyspnea on exertion Respiratory: cough, shortness of breath, dyspnea on exertion Gastrointestinal: nausea Exam - Vital Signs Vital signs: Vital Signs Temp Pulse Resp BP Pulse Ox 99.6 F 95 H 20 202/125 95 09/28/16 07:57 09/28/16 07:57 09/28/16 07:57 09/28/16 07:57 09/28/16 07:57 - General Appearance General appearance: well-developed, frail EENT: ATNC, PERRL, mucous membranes moist Neck: Present: neck supple Respiratory: Wheezes, Decreased Breath Sounds Heart: regular, S1S2 Gastrointestinal: Present: normal, normoactive bowel sounds Integumentary: no rash, other (no edema ) Neurologic: no focal deficit, alert and oriented x3, strength 5/5, CN 3-12 intact Psychiatric: mood/affect appropriate, cooperative Results - Lab Results 09/29/16 05:16 09/30/16 06:48 Most recent lab results Calcium 6.9 mg/dL (8.4-10.2) L 09/30/16 06:48 Laboratory Tests 09/29/16 09/30/16 05:16 06:48 Calcium 7.6 L 6.9 L Assessment and Plan - Patient Problems (1) Acute on chronic renal failure Current Visit: No Status: Acute Plan to address problem: acute kidney injury on CKD most likely due to pre-renal azotemia in the setting of decreased po intake. IV steroids contributing to increased BUN. uremic symptoms may contribute to anorexia. IVF with NS, will decrease rate to 75ml/hr, given elevated BP and h/o chronic systolic HF. Will check UA, urine lytes/Cr to assess feNA, check urine protein/cr ratio. If renal function does not improve with IVF and uremic symptoms persist will consider hemodialysis. D/w patient family at bedside regarding risks and benefits of hemodialysis. pt is agreeable to HD, however wishes to see how she responds to IVF. (2) Acute bronchitis Current Visit: Yes Status: Acute Qualifiers: Bronchitis organism: other organism Qualified Code(s): J20.8 - Acute bronchitis due to other specified organisms Plan to address problem: continue ABX w/ ceftriaxon (3) CHF (congestive heart failure) Current Visit: Yes Status: Acute Qualifiers: Congestive heart failure type: unspecified congestive heart failure type Congestive heart failure chronicity: unspecified congestive heart failure chronicity Qualified Code(s): I50.9 - Heart failure, unspecified Plan to address problem: appears well compensate currently. CXR showed no acute infiltrates (4) Anemia Current Visit: Yes Status: Acute Qualifiers: Anemia type: unspecified type Qualified Code(s): D64.9 - Anemia, unspecified Plan to address problem: likely due to underlying CKD. check ferritin, iron/TSAT. if not at target will consider IV iron +/-epo (5) HTN (hypertension) Current Visit: Yes Status: Acute Qualifiers: Hypertension type: essential hypertension Qualified Code(s): I10 - Essential (primary) hypertension Plan to address problem: will consider adding amlodipine if BP remains elevated. Will decrease IVF to 75ml/hr for now. (6) Elevated troponin Current Visit: Yes Status: Acute Plan to address problem: likely due to CKD, follow cardiology recs. (7) Metabolic acidemia Current Visit: Yes Status: Acute Plan to address problem: start Na bicarb 1300mg po bid
[2016-09-30] MEDS: HEPARIN SUB-Q SCH ×2 (14:30→22:22)
--- NOTE | 2016-09-30 15:31 | Progress Note ---
Assessment and Plan Assessment and plan: Acute COPD exacerbation. * We will continue to monitor pulse oximetry. * Bronchodilators with nebulizer treatment. * Continue O2. Supportive care. Acute bronchitis. * continue on IV antibiotics. No infiltrates on chest x-ray. * Patient may have early pneumonia. We will follow blood and sputum cultures. Chronic CHF, compensated. * 2-D echocardiogram showed EF 45-50% * Chest x-ray and clinical exam reveals no acute decompensation. Elevated troponin. * Etiology may be secondary to chronic renal insufficiency. * Check echocardiogram. CKD. * Creatinine 5.4 today, start on IV fluid, nephrology consulted * Continue to monitor BMP. Diabetes mellitus type 2. * Continue sliding scale and Accu-Cheks. 1800 ADA diet. History Interval history: Patient seen and examined. Medical records and medication list reviewed. No acute event overnight noted by the RN. Patient complains of difficulty breathing with minimal exertion. Patient is tolerating diet. Her renal function continued to decline, creatinine 5.4 today Discussed plan of care at bedside with patient. Hospitalist Physical - Physical exam Narrative exam: GENERAL: Elderly [id number] -[place] female lying on bed appeared to be in no discomfort. HEENT: Normocephalic. Atraumatic. No conjunctival congestion or icterus. Patient has moist mucous membranes. NECK: Supple. Trachea midline. CHEST/LUNGS: Clear to auscultated bilaterally, breathing nonlabored. No wheezes crackles or rhonchi. HEART/CARDIOVASCULAR: Regular in rate and rhythm. S1 and S2 positive. ABDOMEN: Abdomen is soft, nontender, obese. Patient has hypoactive bowel sounds. Colostomy bag in place filled with air and stool SKIN: There is no rash. Warm and dry. NEURO: No focal motor deficit. Follows command. MUSCULOSKELETAL: No joint effusion or tenderness. EXTRIMITY: No edema, no cyanosis or clubbing. PSYCH: Cooperative. - Constitutional Vitals: Temp Pulse Resp BP Pulse Ox 97.5 F L 71 16 187/87 100 09/30/16 07:30 09/30/16 14:54 09/30/16 14:54 09/30/16 08:59 09/30/16 09:42 General appearance: Present: no acute distress, well-nourished Results - Labs CBC & Chem 7: 09/29/16 05:16 09/30/16 06:48 Labs: Laboratory Last Values WBC 10.0 K/mm3 (4.5-11.0) 09/29/16 05:16 RBC 3.39 M/mm3 (3.65-5.03) L 09/29/16 05:16 Hgb 8.6 gm/dl (10.1-14.3) L 09/29/16 05:16 Hct 27.9 % (30.3-42.9) L 09/29/16 05:16 MCV 82 fl (79-97) 09/29/16 05:16 MCH 25 pg (28-32) L 09/29/16 05:16 MCHC 31 % (30-34) 09/29/16 05:16 RDW 16.6 % (13.2-15.2) H 09/29/16 05:16 Plt Count 316 K/mm3 (140-440) 09/29/16 05:16 Add Manual Diff Complete 09/29/16 05:16 Total Counted 100 09/29/16 05:16 Seg Neutrophils % Mud Boss 09/29/16 05:16 Seg Neuts % (Manual) 70.0 % (40.0-70.0) 09/29/16 05:16 Band Neutrophils % 27.0 % 09/29/16 05:16 Lymphocytes % (Manual) 3.0 % (13.4-35.0) L 09/29/16 05:16 Reactive Lymphs % (Man) 0 % 09/29/16 05:16 Monocytes % (Manual) 0 % (0.0-7.3) 09/29/16 05:16 Eosinophils % (Manual) 0 % (0.0-4.3) 09/29/16 05:16 Basophils % (Manual) 0 % (0.0-1.8) 09/29/16 05:16 Metamyelocytes % 0 % 09/29/16 05:16 Myelocytes % 0 % 09/29/16 05:16 Promyelocytes % 0 % 09/29/16 05:16 Blast Cells % 0 % 09/29/16 05:16 Nucleated RBC % Not Reportable 09/29/16 05:16 Seg Neutrophils # Man 7.0 K/mm3 (1.8-7.7) 09/29/16 05:16 Band Neutrophils # 2.7 K/mm3 09/29/16 05:16 Lymphocytes # (Manual) 0.3 K/mm3 (1.2-5.4) L 09/29/16 05:16 Abs React Lymphs (Man) 0.0 K/mm3 09/29/16 05:16 Monocytes # (Manual) 0.0 K/mm3 (0.0-0.8) 09/29/16 05:16 Eosinophils # (Manual) 0.0 K/mm3 (0.0-0.4) 09/29/16 05:16 Basophils # (Manual) 0.0 K/mm3 (0.0-0.1) 09/29/16 05:16 Metamyelocytes # 0.0 K/mm3 09/29/16 05:16 Myelocytes # 0.0 K/mm3 09/29/16 05:16 Promyelocytes # 0.0 K/mm3 09/29/16 05:16 Blast Cells # 0.0 K/mm3 09/29/16 05:16 WBC Morphology Not Reportable 09/29/16 05:16 Hypersegmented Neuts Not Reportable 09/29/16 05:16 Hyposegmented Neuts Not Reportable 09/29/16 05:16 Hypogranular Neuts Not Reportable 09/29/16 05:16 Smudge Cells Not Reportable 09/29/16 05:16 Toxic Granulation Not Reportable 09/29/16 05:16 Toxic Vacuolation Not Reportable 09/29/16 05:16 Dohle Bodies Not Reportable 09/29/16 05:16 Pelger-Huet Anomaly Not Reportable 09/29/16 05:16 Aida Rods Not Reportable 09/29/16 05:16 Platelet Estimate Appears normal 09/29/16 05:16 Clumped Platelets Not Reportable 09/29/16 05:16 Plt Clumps, EDTA Not Reportable 09/29/16 05:16 Large Platelets Not Reportable 09/29/16 05:16 Giant Platelets Not Reportable 09/29/16 05:16 Platelet Satelliting Not Reportable 09/29/16 05:16 Plt Morphology Comment Not Reportable 09/29/16 05:16 RBC Morphology Not Reportable 09/29/16 05:16 Dimorphic RBCs Not Reportable 09/29/16 05:16 Polychromasia 1+ 09/29/16 05:16 Hypochromasia Not Reportable 09/29/16 05:16 Poikilocytosis 1+ 09/29/16 05:16 Anisocytosis 1+ 09/29/16 05:16 Microcytosis Not Reportable 09/29/16 05:16 Macrocytosis Not Reportable 09/29/16 05:16 Spherocytes 1+ 09/29/16 05:16 Pappenheimer Bodies Not Reportable 09/29/16 05:16 Sickle Cells Not Reportable 09/29/16 05:16 Target Cells Not Reportable 09/29/16 05:16 Tear Drop Cells Not Reportable 09/29/16 05:16 Ovalocytes Not Reportable 09/29/16 05:16 Stomatocytes Rare 09/28/16 08:23 Helmet Cells Not Reportable 09/29/16 05:16 [place] Bodies Not Reportable 09/29/16 05:16 [place] Rings Not Reportable 09/29/16 05:16 Bernard Cells Not Reportable 09/29/16 05:16 Bite Cells Not Reportable 09/29/16 05:16 Crenated Cell Not Reportable 09/29/16 05:16 Elliptocytes Not Reportable 09/29/16 05:16 Acanthocytes (Spur) Not Reportable 09/29/16 05:16 Rouleaux Not Reportable 09/29/16 05:16 Hemoglobin C Crystals Not Reportable 09/29/16 05:16 Schistocytes Not Reportable 09/29/16 05:16 Malaria parasites Not Reportable 09/29/16 05:16 Jalil Bodies Not Reportable 09/29/16 05:16 Hem Pathologist Commnt No 09/29/16 05:16 Sodium 136 mmol/L (137-145) L 09/30/16 06:48 Potassium 4.7 mmol/L (3.6-5.0) 09/30/16 06:48 Chloride 100.4 mmol/L (98-107) 09/30/16 06:48 Carbon Dioxide 18 mmol/L (22-30) L 09/30/16 06:48 Anion Gap 22 mmol/L 09/30/16 06:48 BUN 64 mg/dL (7-17) H 09/30/16 06:48 Creatinine 5.4 mg/dL (0.7-1.2) H 09/30/16 06:48 Estimated GFR 9 ml/min 09/30/16 06:48 BUN/Creatinine Ratio 11.85 % 09/30/16 06:48 Glucose 182 mg/dL (65-100) H 09/30/16 06:48 POC Glucose 193 (70-105) H 09/29/16 21:05 Hemoglobin A1c 5.3 % (4-6) 09/28/16 08:23 Calcium 6.9 mg/dL (8.4-10.2) L 09/30/16 06:48 Total Creatine Kinase 66 units/L (30-135) 09/28/16 16:38 CK-MB (CK-2) 3.4 ng/mL (0.0-4.0) 09/28/16 16:38 CK-MB (CK-2) Rel Index 5.1 (0-4) H 09/28/16 16:38 Troponin T 0.275 ng/mL (0.00-0.029) H* 09/28/16 16:38 Triglycerides 89 mg/dL (2-149) 09/28/16 08:23 Cholesterol 151 mg/dL (50-199) 09/28/16 08:23 LDL Cholesterol Direct 69 mg/dL (50-130) 09/28/16 08:23 HDL Cholesterol 65 mg/dL (40-59) H 09/28/16 08:23 Cholesterol/HDL Ratio 2.32 % 09/28/16 08:23 Blood Type B POSITIVE 09/28/16 12:12 Antibody Screen Negative 09/28/16 12:12
[2016-09-30] MEDS: SODIUM BICARBONATE PO SCH ×2 (15:57→22:20)
[2016-09-30] MEDS: REMERON PO SCH (22:22)
[2016-10-01] MEDS: HEPARIN SUB-Q SCH ×3 (05:16→21:34)
[2016-10-01] MEDS: NACL 0.45% 1000 ML 1,000 ML IV SCH (05:16)
[2016-10-01] MEDS ORDERED: APRESOLINE IV ONE (06:00)
[2016-10-01 06:19] LABS: Bacteria,Urine 3+ /HPF (Negative); Bilirubin,Urine NEG (Negative); Blood,Urine SM (Negative); Ketones,Urine NEG (Negative); Leukocyte Esterase,Urine LG (Negative); Mucus,Urine 1+ /HPF; Nitrite,Urine NEG (Negative); Urobilinogen,Urine < 2.0 mg/dL (<2.0)
[2016-10-01 06:20] LABS: WBC,Urine > 182.0 /HPF (0.0-6.0)
--- NOTE | 2016-10-01 08:47 | Progress Note ---
Assessment and Plan - Patient Problems (1) Acute on chronic renal failure Current Visit: No Status: Acute Plan to address problem: acute kidney injury on CKD most likely due to pre-renal azotemia in the setting of decreased po intake. IV steroids contributing to increased BUN. uremic symptoms may contribute to anorexia. UA consistent with UTI, pt already on ceftriaxone. Will check renal US to rule out urinary retention/hydro. If renal function does not improve with IVF and uremic symptoms persist will consider hemodialysis. D/w patient family at bedside regarding risks and benefits of hemodialysis. pt is agreeable to HD, however wishes to discuss with daugther and see how she responds to IVF. repeat BMP pending. (2) Acute bronchitis Current Visit: Yes Status: Acute Qualifiers: Bronchitis organism: other organism Qualified Code(s): J20.8 - Acute bronchitis due to other specified organisms Plan to address problem: continue ABX w/ ceftriaxon (3) CHF (congestive heart failure) Current Visit: Yes Status: Acute Qualifiers: Congestive heart failure type: unspecified congestive heart failure type Congestive heart failure chronicity: unspecified congestive heart failure chronicity Qualified Code(s): I50.9 - Heart failure, unspecified Plan to address problem: appears well compensate currently. CXR showed no acute infiltrates (4) Anemia Current Visit: Yes Status: Acute Qualifiers: Anemia type: unspecified type Qualified Code(s): D64.9 - Anemia, unspecified Plan to address problem: likely due to underlying CKD. check ferritin, iron/TSAT. if not at target will consider IV iron +/-epo (5) HTN (hypertension) Current Visit: Yes Status: Acute Qualifiers: Hypertension type: essential hypertension Qualified Code(s): I10 - Essential (primary) hypertension Plan to address problem: will consider adding amlodipine if BP remains elevated. Will decrease IVF to 75ml/hr for now. (6) Elevated troponin Current Visit: Yes Status: Acute Plan to address problem: likely due to CKD, follow cardiology recs. (7) Metabolic acidemia Current Visit: Yes Status: Acute Plan to address problem: continue Na bicarb 1300mg po bid. Subjective Date of service: 10/01/16 Interval history: patient awake, alert, in NAD, denies fever, chills, c/o intermittent nausea, and poor appetite. Objective - Vital Signs Vital signs: Vital Signs - 12hr 09/30/16 09/30/16 09/30/16 21:00 21:13 21:14 Temperature Pulse Rate Pulse Rate [ 73 72 Posterior Bilateral Throughout] Pulse Rate [ Right Radial] Respiratory Rate Respiratory Rate [Bilateral Hand] Respiratory 12 12 Rate [Posterior Bilateral Throughout] Blood Pressure Blood Pressure [Left Arm] Blood Pressure [Right Arm] O2 Sat by Pulse 100 Oximetry 09/30/16 09/30/16 09/30/16 22:20 22:23 22:53 Temperature Pulse Rate 74 Pulse Rate [ Posterior Bilateral Throughout] Pulse Rate [ Right Radial] Respiratory 20 22 Rate Respiratory Rate [Bilateral Hand] Respiratory Rate [Posterior Bilateral Throughout] Blood Pressure 192/86 Blood Pressure [Left Arm] Blood Pressure [Right Arm] O2 Sat by Pulse Oximetry 09/30/16 09/30/16 09/30/16 23:00 23:29 23:54 Temperature 98.1 F Pulse Rate 73 Pulse Rate [ Posterior Bilateral Throughout] Pulse Rate [ 76 Right Radial] Respiratory 22 18 Rate Respiratory Rate [Bilateral Hand] Respiratory Rate [Posterior Bilateral Throughout] Blood Pressure Blood Pressure [Left Arm] Blood Pressure 179/88 [Right Arm] O2 Sat by Pulse 98 Oximetry 10/01/16 10/01/16 10/01/16 01:20 03:36 06:03 Temperature 98.6 F Pulse Rate 86 Pulse Rate [ Posterior Bilateral Throughout] Pulse Rate [ 77 Right Radial] Respiratory 18 Rate Respiratory 20 Rate [Bilateral Hand] Respiratory Rate [Posterior Bilateral Throughout] Blood Pressure 184/90 Blood Pressure [Left Arm] Blood Pressure 186/86 [Right Arm] O2 Sat by Pulse Oximetry 10/01/16 08:00 Temperature 97.8 F Pulse Rate Pulse Rate [ Posterior Bilateral Throughout] Pulse Rate [ 76 Right Radial] Respiratory 18 Rate Respiratory Rate [Bilateral Hand] Respiratory Rate [Posterior Bilateral Throughout] Blood Pressure Blood Pressure 137/71 [Left Arm] Blood Pressure [Right Arm] O2 Sat by Pulse 100 Oximetry - General Appearance General appearance: well-developed, well-nourished EENT: ATNC, PERRL, mucous membranes moist Neck: no JVD Respiratory: Present: Clear to Ascultation Cardiology: regular, S1S2 Gastrointestinal: normal, normoactive bowel sounds Integumentary: no rash, other (no edema ) Neurologic: no focal deficit, alert and oriented x3, strength 5/5, CN 3-12 intact Psychiatric: mood/affect appropriate, cooperative - Lab 09/29/16 05:16 09/30/16 06:48 Most recent lab results Calcium 6.9 mg/dL (8.4-10.2) L 09/30/16 06:48 Urine Creatinine 123.1 mg/dL (0.1-20.0) H 10/01/16 05:19 Urine Sodium 36 mEq/L 10/01/16 05:19 Urine Total Protein 112 mg/dL (5-11.8) H 10/01/16 05:19
[2016-10-01] MEDS: MUCINEX ER PO SCH ×2 (09:16→21:33)
[2016-10-01] MEDS: SODIUM BICARBONATE PO SCH ×2 (09:16→21:32)
[2016-10-01] MEDS: COREG PO SCH (09:16)
[2016-10-01] MEDS: PROTONIX PO SCH (09:17)
[2016-10-01] MEDS: ROCEPHIN/NS 1 GM/50 ML 50 ML IV SCH (09:17)
[2016-10-01] MEDS: DUONEB 0.5 MG-3 MG/3 ML SOLN IH SCH ×3 (09:41→19:55)
[2016-10-01] MEDS ORDERED: PROVENTIL IH PRN (09:46)
[2016-10-01 09:50] LABS: BUN/Creatinine Ratio 13.01; Calcium 6.5 mg/dL (8.4-10.2); Chloride 91.8 mmol/L (98-107); Phosphorous 7.4 mg/dL (2.5-4.5); Potassium 4.8 mmol/L (3.6-5.0)
[2016-10-01] MEDS: ZITHROMAX 500 MG in NACL 0.9% 250ML 250 ML IV SCH (11:35)
[2016-10-01] MEDS ORDERED: SODIUM BICARBONATE 150 MEQ in D5W 1,000 ML IV SCH (14:00)
--- NOTE | 2016-10-01 16:23 | Progress Note ---
Assessment and Plan Assessment and plan: Acute COPD exacerbation. * We will continue to monitor pulse oximetry. * Bronchodilators with nebulizer treatment. * Continue O2. Supportive care. Acute bronchitis. * continue on IV antibiotics. No infiltrates on chest x-ray. * Patient may have early pneumonia. Chronic CHF, compensated. * 2-D echocardiogram showed EF 45-50% * Chest x-ray and clinical exam reveals no acute decompensation. Elevated troponin. * Etiology may be secondary to chronic renal insufficiency. * Check echocardiogram. CKD. * Creatinine 6.3 today, on IV fluid, nephrology following * Continue to monitor BMP. * if no improvement of renal function by IV fluid might need dialysis Diabetes mellitus type 2. * Continue sliding scale and Accu-Cheks. 1800 ADA diet. History Interval history: Patient seen and examined. Medical records and medication list reviewed. No acute event overnight noted by the RN. Patient complains of difficulty breathing with minimal exertion. Patient is tolerating diet. Her renal function continued to decline, creatinine 6.3 today Discussed plan of care at bedside with patient. Hospitalist Physical - Physical exam Narrative exam: GENERAL: Elderly [id number] -Luxembourger female lying on bed appeared to be in no discomfort. HEENT: Normocephalic. Atraumatic. No conjunctival congestion or icterus. Patient has moist mucous membranes. NECK: Supple. Trachea midline. CHEST/LUNGS: Clear to auscultated bilaterally, breathing nonlabored. No wheezes crackles or rhonchi. HEART/CARDIOVASCULAR: Regular in rate and rhythm. S1 and S2 positive. ABDOMEN: Abdomen is soft, nontender, obese. Patient has hypoactive bowel sounds. Colostomy bag in place filled with air and stool SKIN: There is no rash. Warm and dry. NEURO: No focal motor deficit. Follows command. MUSCULOSKELETAL: No joint effusion or tenderness. EXTRIMITY: No edema, no cyanosis or clubbing. PSYCH: Cooperative. - Constitutional Vitals: Temp Pulse Resp BP Pulse Ox 97.6 F 73 16 112/69 100 10/01/16 11:30 10/01/16 14:47 10/01/16 14:47 10/01/16 11:30 10/01/16 11:30 General appearance: Present: no acute distress, well-nourished Results - Labs CBC & Chem 7: 09/29/16 05:16 10/01/16 09:04 Labs: Laboratory Last Values WBC 10.0 K/mm3 (4.5-11.0) 09/29/16 05:16 RBC 3.39 M/mm3 (3.65-5.03) L 09/29/16 05:16 Hgb 8.6 gm/dl (10.1-14.3) L 09/29/16 05:16 Hct 27.9 % (30.3-42.9) L 09/29/16 05:16 MCV 82 fl (79-97) 09/29/16 05:16 MCH 25 pg (28-32) L 09/29/16 05:16 MCHC 31 % (30-34) 09/29/16 05:16 RDW 16.6 % (13.2-15.2) H 09/29/16 05:16 Plt Count 316 K/mm3 (140-440) 09/29/16 05:16 Add Manual Diff Complete 09/29/16 05:16 Total Counted 100 09/29/16 05:16 Seg Neutrophils % [employer] 09/29/16 05:16 Seg Neuts % (Manual) 70.0 % (40.0-70.0) 09/29/16 05:16 Band Neutrophils % 27.0 % 09/29/16 05:16 Lymphocytes % (Manual) 3.0 % (13.4-35.0) L 09/29/16 05:16 Reactive Lymphs % (Man) 0 % 09/29/16 05:16 Monocytes % (Manual) 0 % (0.0-7.3) 09/29/16 05:16 Eosinophils % (Manual) 0 % (0.0-4.3) 09/29/16 05:16 Basophils % (Manual) 0 % (0.0-1.8) 09/29/16 05:16 Metamyelocytes % 0 % 09/29/16 05:16 Myelocytes % 0 % 09/29/16 05:16 Promyelocytes % 0 % 09/29/16 05:16 Blast Cells % 0 % 09/29/16 05:16 Nucleated RBC % Not Reportable 09/29/16 05:16 Seg Neutrophils # Man 7.0 K/mm3 (1.8-7.7) 09/29/16 05:16 Band Neutrophils # 2.7 K/mm3 09/29/16 05:16 Lymphocytes # (Manual) 0.3 K/mm3 (1.2-5.4) L 09/29/16 05:16 Abs React Lymphs (Man) 0.0 K/mm3 09/29/16 05:16 Monocytes # (Manual) 0.0 K/mm3 (0.0-0.8) 09/29/16 05:16 Eosinophils # (Manual) 0.0 K/mm3 (0.0-0.4) 09/29/16 05:16 Basophils # (Manual) 0.0 K/mm3 (0.0-0.1) 09/29/16 05:16 Metamyelocytes # 0.0 K/mm3 09/29/16 05:16 Myelocytes # 0.0 K/mm3 09/29/16 05:16 Promyelocytes # 0.0 K/mm3 09/29/16 05:16 Blast Cells # 0.0 K/mm3 09/29/16 05:16 WBC Morphology Not Reportable 09/29/16 05:16 Hypersegmented Neuts Not Reportable 09/29/16 05:16 Hyposegmented Neuts Not Reportable 09/29/16 05:16 Hypogranular Neuts Not Reportable 09/29/16 05:16 Smudge Cells Not Reportable 09/29/16 05:16 Toxic Granulation Not Reportable 09/29/16 05:16 Toxic Vacuolation Not Reportable 09/29/16 05:16 Dohle Bodies Not Reportable 09/29/16 05:16 Pelger-Huet Anomaly Not Reportable 09/29/16 05:16 Aida Rods Not Reportable 09/29/16 05:16 Platelet Estimate Appears normal 09/29/16 05:16 Clumped Platelets Not Reportable 09/29/16 05:16 Plt Clumps, EDTA Not Reportable 09/29/16 05:16 Large Platelets Not Reportable 09/29/16 05:16 Giant Platelets Not Reportable 09/29/16 05:16 Platelet Satelliting Not Reportable 09/29/16 05:16 Plt Morphology Comment Not Reportable 09/29/16 05:16 RBC Morphology Not Reportable 09/29/16 05:16 Dimorphic RBCs Not Reportable 09/29/16 05:16 Polychromasia 1+ 09/29/16 05:16 Hypochromasia Not Reportable 09/29/16 05:16 Poikilocytosis 1+ 09/29/16 05:16 Anisocytosis 1+ 09/29/16 05:16 Microcytosis Not Reportable 09/29/16 05:16 Macrocytosis Not Reportable 09/29/16 05:16 Spherocytes 1+ 09/29/16 05:16 Pappenheimer Bodies Not Reportable 09/29/16 05:16 Sickle Cells Not Reportable 09/29/16 05:16 Target Cells Not Reportable 09/29/16 05:16 Tear Drop Cells Not Reportable 09/29/16 05:16 Ovalocytes Not Reportable 09/29/16 05:16 Stomatocytes Rare 09/28/16 08:23 Helmet Cells Not Reportable 09/29/16 05:16 [place] Bodies Not Reportable 09/29/16 05:16 [place] Rings Not Reportable 09/29/16 05:16 Bernard Cells Not Reportable 09/29/16 05:16 Bite Cells Not Reportable 09/29/16 05:16 Crenated Cell Not Reportable 09/29/16 05:16 Elliptocytes Not Reportable 09/29/16 05:16 Acanthocytes (Spur) Not Reportable 09/29/16 05:16 Rouleaux Not Reportable 09/29/16 05:16 Hemoglobin C Crystals Not Reportable 09/29/16 05:16 Schistocytes Not Reportable 09/29/16 05:16 Malaria parasites Not Reportable 09/29/16 05:16 Jalil Bodies Not Reportable 09/29/16 05:16 Hem Pathologist Commnt No 09/29/16 05:16 Sodium 127 mmol/L (137-145) L D 10/01/16 09:04 Potassium 4.8 mmol/L (3.6-5.0) 10/01/16 09:04 Chloride 91.8 mmol/L (98-107) L 10/01/16 09:04 Carbon Dioxide 15 mmol/L (22-30) L 10/01/16 09:04 Anion Gap 25 mmol/L 10/01/16 09:04 BUN 82 mg/dL (7-17) H 10/01/16 09:04 Creatinine 6.3 mg/dL (0.7-1.2) H 10/01/16 09:04 Estimated GFR 8 ml/min 10/01/16 09:04 BUN/Creatinine Ratio 13.01 % 10/01/16 09:04 Glucose 197 mg/dL (65-100) H 10/01/16 09:04 POC Glucose 142 (70-105) H 09/30/16 22:33 Hemoglobin A1c 5.3 % (4-6) 09/28/16 08:23 Calcium 6.5 mg/dL (8.4-10.2) L 10/01/16 09:04 Phosphorus 7.4 mg/dL (2.5-4.5) H 10/01/16 09:04 Iron 21 ug/dL (37-170) L 10/01/16 09:04 TIBC 269 mcg/dL (250-450) 10/01/16 09:04 Ferritin 82.1 ng/mL (13.0-400.0) 10/01/16 09:05 Total Creatine Kinase 66 units/L (30-135) 09/28/16 16:38 CK-MB (CK-2) 3.4 ng/mL (0.0-4.0) 09/28/16 16:38 CK-MB (CK-2) Rel Index 5.1 (0-4) H 09/28/16 16:38 Troponin T 0.275 ng/mL (0.00-0.029) H* 09/28/16 16:38 Triglycerides 89 mg/dL (2-149) 09/28/16 08:23 Cholesterol 151 mg/dL (50-199) 09/28/16 08:23 LDL Cholesterol Direct 69 mg/dL (50-130) 09/28/16 08:23 HDL Cholesterol 65 mg/dL (40-59) H 09/28/16 08:23 Cholesterol/HDL Ratio 2.32 % 09/28/16 08:23 PTH Intact 506.6 pg/mL (15-65) H 10/01/16 08:59 Urine Color Gloria (Yellow) 10/01/16 05:50 Urine Turbidity Turbid (Clear) 10/01/16 05:50 Urine pH 5.0 (5.0-7.0) 10/01/16 05:50 Ur Specific [place] 1.012 (1.003-1.030) 10/01/16 05:50 Urine Protein 30 mg/dl mg/dL (Negative) 10/01/16 05:50 Urine Glucose (UA) 50 mg/dL (Negative) 10/01/16 05:50 Urine Ketones Neg mg/dL (Negative) 10/01/16 05:50 Urine Blood Sm (Negative) 10/01/16 05:50 Urine Nitrite Neg (Negative) 10/01/16 05:50 Urine Bilirubin Neg (Negative) 10/01/16 05:50 Urine Urobilinogen < 2.0 mg/dL (<2.0) 10/01/16 05:50 Ur Leukocyte Esterase Lg (Negative) 10/01/16 05:50 Urine WBC (Auto) > 182.0 /HPF (0.0-6.0) H 10/01/16 05:50 Urine RBC (Auto) 46.0 /HPF (0.0-6.0) 10/01/16 05:50 U Epithel Cells (Auto) 4.0 /HPF (0-13.0) 10/01/16 05:50 Urine Bacteria (Auto) 3+ /HPF (Negative) 10/01/16 05:50 Urine WBC Clumps 3+ /HPF 10/01/16 05:50 Amorphous Crystals 1+ 10/01/16 05:50 Hyaline Casts 97 /LPF 10/01/16 05:50 Urine Mucus 1+ /HPF 10/01/16 05:50 Urine Osmolality 297 Mosm/kg 10/01/16 05:19 Urine Creatinine 123.1 mg/dL (0.1-20.0) H 10/01/16 05:19 Urine Sodium 36 mEq/L 10/01/16 05:19 Urine Total Protein 112 mg/dL (5-11.8) H 10/01/16 05:19 Blood Type B POSITIVE 09/28/16 12:12 Antibody Screen Negative 09/28/16 12:12
[2016-10-01] MEDS: NORMODYNE PO SCH ×2 (19:18→21:33)
[2016-10-01] MEDS: REMERON PO SCH (21:33)
[2016-10-02] MEDS: APRESOLINE IV PRN ×2 (01:37→22:47)
[2016-10-02] MEDS: HEPARIN SUB-Q SCH ×3 (06:09→22:46)
[2016-10-02 07:48] LABS: BUN/Creatinine Ratio 14.08; Potassium 4.4 mmol/L (3.6-5.0)
[2016-10-02 07:49] LABS: Hematocrit 28.4 % (30.3-42.9); Hemoglobin 8.8 gm/dl (10.1-14.3); Mean Corpuscular HGB Conc 31 % (30-34); Mean Corpuscular Volume 81 fl (79-97); Platelet Count 295 K/mm3 (140-440); Red Blood Count 3.51 M/mm3 (3.65-5.03); Red Cell Distribution Width 16.5 % (13.2-15.2); White Blood Count 13.6 K/mm3 (4.5-11.0)
[2016-10-02 07:53] LABS: Calcium 5.9 mg/dL (8.4-10.2)
[2016-10-02 07:59] LABS: Mean Corpuscular Hemoglobin 25 pg (28-32)
[2016-10-02] MEDS: DUONEB 0.5 MG-3 MG/3 ML SOLN IH SCH ×3 (08:15→22:37)
[2016-10-02] MEDS ORDERED: NACL 0.9% 1000 ML 100 ML IV PRN (08:27)
--- NOTE | 2016-10-02 08:36 | Progress Note ---
Assessment and Plan - Patient Problems (1) Acute on chronic renal failure Current Visit: No Status: Acute Plan to address problem: acute kidney injury on advanced CKD possibly due to pre-renal azotemia, ATN in the setting of UTI/pyelo cannot be ruled out. Progressive CKD also possible. renal function is declining and patient with uremic symptoms. D/w patient regarding benefits and risks of HD, deferred decision to her daughter. Spoke with pt's daughter who agrees to temporary HD to correct uremia. IR consulted for vascath/permcath placement. HD today using 2k/2.5Ca bath. (2) Acute bronchitis Current Visit: Yes Status: Acute Qualifiers: Bronchitis organism: other organism Qualified Code(s): J20.8 - Acute bronchitis due to other specified organisms Plan to address problem: continue ABX w/ ceftriaxon (3) CHF (congestive heart failure) Current Visit: Yes Status: Acute Qualifiers: Congestive heart failure type: unspecified congestive heart failure type Congestive heart failure chronicity: unspecified congestive heart failure chronicity Qualified Code(s): I50.9 - Heart failure, unspecified Plan to address problem: appears well compensate currently.. (4) Anemia Current Visit: Yes Status: Acute Qualifiers: Anemia type: unspecified type Qualified Code(s): D64.9 - Anemia, unspecified Plan to address problem: likely due to underlying CKD. check ferritin, iron/TSAT. if not at target will consider IV iron +/-epo (5) HTN (hypertension) Current Visit: Yes Status: Acute Qualifiers: Hypertension type: essential hypertension Qualified Code(s): I10 - Essential (primary) hypertension Plan to address problem: will consider adding amlodipine if BP remains elevated. Will decrease IVF to 75ml/hr for now. (6) Elevated troponin Current Visit: Yes Status: Acute Plan to address problem: likely due to CKD, follow cardiology recs. (7) Metabolic acidemia Current Visit: Yes Status: Acute Plan to address problem: improved on IV bicarb. D/C IV bicarb for now given worsening hypocalcemia and also in light of initiation of HD today.. (8) Secondary hyperparathyroidism (of renal origin) Current Visit: Yes Status: Acute Plan to address problem: will start phoslo 2tabd tid w/ meals. start calcitriol 0.25mcg po qd. Subjective Date of service: 10/02/16 Interval history: patient awake, weak, c/o decreased appetite, fatigue, intermittent shortness of breath.worsening renal function noted. Objective - Vital Signs Vital signs: Vital Signs - 12hr 10/01/16 10/01/16 10/01/16 20:51 21:33 22:00 Temperature Pulse Rate 100 H Pulse Rate [ Apical] Respiratory Rate Respiratory 24 Rate [Bilateral Hand] Blood Pressure 188/88 Blood Pressure [Left Arm] O2 Sat by Pulse 97 Oximetry 10/02/16 10/02/16 10/02/16 01:05 01:37 05:44 Temperature 98.2 F 97.8 F Pulse Rate 76 Pulse Rate [ 76 82 Apical] Respiratory 18 18 Rate Respiratory Rate [Bilateral Hand] Blood Pressure 180/86 Blood Pressure 180/86 139/65 [Left Arm] O2 Sat by Pulse 100 98 Oximetry - General Appearance General appearance: well-developed, appears stated age, chronically ill, fatigue EENT: ATNC, PERRL, mucous membranes moist Neck: no JVD Respiratory: Present: Decreased Breath Sounds Cardiology: regular, S1S2 Gastrointestinal: normal, normoactive bowel sounds Integumentary: no rash, other (+ edema ) Neurologic: no focal deficit, alert and oriented x3, strength 5/5, CN 3-12 intact Psychiatric: mood/affect appropriate, cooperative - Lab 10/02/16 07:06 10/02/16 07:06 Most recent lab results Calcium 5.9 mg/dL (8.4-10.2) L* 10/02/16 07:06 Phosphorus 7.4 mg/dL (2.5-4.5) H 10/01/16 09:04 Urine Creatinine 123.1 mg/dL (0.1-20.0) H 10/01/16 05:19 Urine Sodium 36 mEq/L 10/01/16 05:19 Urine Total Protein 112 mg/dL (5-11.8) H 10/01/16 05:19 Laboratory Tests 10/01/16 10/01/16 10/01/16 08:59 09:04 09:05 Calcium 6.5 L Phosphorus 7.4 H Iron 21 L TIBC 269 Ferritin 82.1 PTH Intact 506.6 H 10/02/16 07:06 Calcium 5.9 L* Phosphorus Iron TIBC Ferritin PTH Intact
[2016-10-02 08:47] LABS: Anisocytosis 1+; Basophils % (Manual) 0 % (0.0-1.8); Blastocytes % (Manual) 0 %; Eosinophils % (Manual) 0 % (0.0-4.3)
[2016-10-02 08:48] LABS: Poikilocytosis 1+
[2016-10-02 08:49] LABS: Polychromasia Rare
[2016-10-02 08:51] LABS: Diff Status Complete; Spherocytes Rare
--- NOTE | 2016-10-02 09:16 | Ultrasound Report ---
Renal ultrasound: Both kidneys are generally echogenic. The parenchyma thickness is well-maintained bilaterally. The right renal length is 12.9 cm and the left is 13 cm. There is mild dilatation of the renal pelves of each kidney but no overt hydronephrosis. There is an 11 mm cyst in the lower left kidney. No solid masses. Attempts to identify the bladder obscured by gas. Impression: Echogenic kidneys consistent with medical renal disease. Nonspecific mild renal pelvic fullness.
[2016-10-02] MEDS: ROCEPHIN/NS 1 GM/50 ML 50 ML IV SCH (09:35)
[2016-10-02] MEDS: ROCALTROL PO SCH (09:39)
[2016-10-02] MEDS: PROTONIX PO SCH (09:39)
[2016-10-02] MEDS: MUCINEX ER PO SCH ×2 (09:45→22:46)
[2016-10-02] MEDS: NORMODYNE PO SCH ×2 (10:00→22:45)
[2016-10-02] MEDS: ZITHROMAX 500 MG in NACL 0.9% 250ML 250 ML IV SCH (10:12)
[2016-10-02] MEDS ORDERED: HEPARIN 10,000 UNITS/10 ML ONE (14:23)
[2016-10-02] MEDS ORDERED: HEPARIN/NS 5000 UNIT/500ML(CATH LAB) 500 ML IR ONE (14:23)
[2016-10-02] MEDS ORDERED: ANCEF/STERILE WATER 2 GM/20 ML 20 ML IV ONE (14:24)
[2016-10-02] MEDS: PHOSLO PO SCH ×2 (14:36→22:46)
[2016-10-02] MEDS: XYLOCAINE 1%/ EPI 1:100,000 INFILTRATI ONE ×2 (14:39→14:50)
[2016-10-02] MEDS ORDERED: NACL 0.9% 100 ML ONE (14:40)
--- NOTE | 2016-10-02 15:08 | Event Note ---
Date: 10/02/16 Request for vascath for ARF. NPO except meds.
--- NOTE | 2016-10-02 15:08 | Operative Report ---
Operative Report Operative Report: EXAM: 1. Ultrasound-guided puncture of the right internal jugular vein 2. Fluoroscopic-guided placement of a right internal jugular nontunneled noncuffed hemodialysis catheter. DATE: 10/02/16 INDICATION: Acute renal failure requiring hemodialysis. MEDICATIONS: Please see nursing report for full details. DEVICES: 15 cm dual lumen hemodialysis catheter ASSOCIATE QUALITY ENGINEER: ROSA SANDERS MD CONTRAST: None PROCEDURE: The risks, benefits, and alternatives were discussed and informed consent was obtained. The patient was transported to the angiography suite in satisfactory/ stable condition and was transported onto the angiography table. The patient's right internal jugular vein was assessed with ultrasound and determined to be patent prior to procedure. The patient was prepped and draped in a sterile fashion. The puncture site was anesthetized. The right internal jugular vein was patent on ultrasound. Under sonographic guidance, the right internal jugular vein was punctured with a 21-gauge micropuncture needle and a 0.018 inch wire was advanced through the needle. Needle was exchanged for transitional dilator. The inner dilator and wire was removed and a 0.035 inch wire was advanced through the transitional dilator. The wire did not easily passed into the inferior vena cava. Therefore, 4 Hebrew vertebral catheter was advanced over the wire and negotiated into the inferior vena cava. Wire was placed in the inferior vena cava. Over the 0.035 inch wire, serial dilatation was performed. The catheter was advanced over the wire and positioned centrally under fluoroscopic guidance. 2-0 silk suture was used to secure the catheter. The catheter was charged with heparin 1000 units/mL space. The patient was transferred from the angiography suite back to the floor in stable condition. FNDINGS: 1. Excellent flow was obtained through the dialysis catheter with 20 mL syringes. 2. The catheter tip is in the right atrium. IMPRESSION: 1. Successful sonographically and fluoroscopically guided placement of a right internal jugular nontunneled noncuffed hemodialysis catheter.
[2016-10-02] MEDS: HEPARIN IV PRN (21:40)
[2016-10-02] MEDS: REMERON PO SCH (22:46)
[2016-10-03] MEDS: HEPARIN SUB-Q SCH ×3 (05:13→22:01)
[2016-10-03] MEDS: APRESOLINE IV PRN (05:25)
[2016-10-03] MEDS: DUONEB 0.5 MG-3 MG/3 ML SOLN IH SCH ×3 (07:54→21:05)
[2016-10-03 09:17] LABS: BUN/Creatinine Ratio 12.6; Calcium 6.5 mg/dL (8.4-10.2); Chloride 94.7 mmol/L (98-107); Potassium 4.1 mmol/L (3.6-5.0)
[2016-10-03] MEDS: ROCEPHIN/NS 1 GM/50 ML 50 ML IV SCH (09:26)
[2016-10-03] MEDS: PROTONIX PO SCH (09:29)
[2016-10-03] MEDS: PHOSLO PO SCH ×3 (09:29→22:05)
[2016-10-03] MEDS: ROCALTROL PO SCH (09:29)
[2016-10-03] MEDS: NORMODYNE PO SCH ×2 (09:30→22:05)
[2016-10-03] MEDS: MUCINEX ER PO SCH ×2 (09:30→22:05)
[2016-10-03] MEDS: ZITHROMAX 500 MG in NACL 0.9% 250ML 250 ML IV SCH (10:21)
--- NOTE | 2016-10-03 10:28 | Progress Note ---
Assessment and Plan - Patient Problems (1) Acute on chronic renal failure Current Visit: No Status: Acute Plan to address problem: acute kidney injury on advanced CKD possibly due to ATN in the setting of UTI/ pyelo. Progressive CKD also possible. patient tolerated HD well yesterday. Will plan for second HD for solute clearance. Will monitor I/Os, electrolytes and renal parameters closely and assess for signs of renal recovery. Case management consult for outpatient HD arrangement for JAMEE. (2) Acute bronchitis Current Visit: Yes Status: Acute Qualifiers: Bronchitis organism: other organism Qualified Code(s): J20.8 - Acute bronchitis due to other specified organisms Plan to address problem: continue ABX w/ ceftriaxon (3) CHF (congestive heart failure) Current Visit: Yes Status: Acute Qualifiers: Congestive heart failure type: unspecified congestive heart failure type Congestive heart failure chronicity: unspecified congestive heart failure chronicity Qualified Code(s): I50.9 - Heart failure, unspecified Plan to address problem: appears well compensated currently. (4) Anemia Current Visit: Yes Status: Acute Qualifiers: Anemia type: unspecified type Qualified Code(s): D64.9 - Anemia, unspecified Plan to address problem: anemia of CKD, will start epo [id number] tiw with HD. (5) HTN (hypertension) Current Visit: Yes Status: Acute Qualifiers: Hypertension type: essential hypertension Qualified Code(s): I10 - Essential (primary) hypertension Plan to address problem: BP remains elevated. Will add amlodipine 5mg po qd, and also adjust UF as tolerated. (6) Elevated troponin Current Visit: Yes Status: Acute Plan to address problem: likely due to CKD, follow cardiology recs. (7) Metabolic acidemia Current Visit: Yes Status: Acute Plan to address problem: improved with HD. (8) Secondary hyperparathyroidism (of renal origin) Current Visit: Yes Status: Acute Plan to address problem: continue phoslo 2tabd tid w/ meals. started calcitriol 0.25mcg po qd. . Subjective Date of service: 10/03/16 Interval history: patient tolerated HD well yesterday, c/o generalized fatigue, still with nausea , and decreased appetite. no fever, chills, vomiting, CP, SOB, palpitations, dysuria reported. Objective - Vital Signs Vital signs: Vital Signs - 12hr 10/02/16 10/02/1617 22:29 22:37 22:45 Temperature 98.4 F Pulse Rate 84 Pulse Rate [ 82 Anterior Bilateral Throughout] Pulse Rate [ Bilateral Throughout] Pulse Rate [ 84 Left Radial] Pulse Rate [ Right Radial] Respiratory 18 Rate Respiratory 18 Rate [Anterior Bilateral Throughout] Respiratory Rate [Bilateral Throughout] Blood Pressure 182/84 Blood Pressure 182/84 [Left Arm] Blood Pressure [Right Arm] O2 Sat by Pulse 99 Oximetry 10/02/16 10/03/16 10/03/16 22:47 02:00 04:31 Temperature 98.6 F Pulse Rate 84 Pulse Rate [ 85 Anterior Bilateral Throughout] Pulse Rate [ Bilateral Throughout] Pulse Rate [ Left Radial] Pulse Rate [ 80 86 Right Radial] Respiratory 20 18 Rate Respiratory 20 Rate [Anterior Bilateral Throughout] Respiratory Rate [Bilateral Throughout] Blood Pressure 182/84 Blood Pressure 195/95 [Left Arm] Blood Pressure 144/68 [Right Arm] O2 Sat by Pulse 98 97 Oximetry 10/03/16 10/03/16 10/03/16 05:25 05:28 07:25 Temperature 98.8 F Pulse Rate 87 Pulse Rate [ Anterior Bilateral Throughout] Pulse Rate [ Bilateral Throughout] Pulse Rate [ Left Radial] Pulse Rate [ 87 86 Right Radial] Respiratory 20 Rate Respiratory Rate [Anterior Bilateral Throughout] Respiratory Rate [Bilateral Throughout] Blood Pressure 170/82 Blood Pressure [Left Arm] Blood Pressure 170/82 151/78 [Right Arm] O2 Sat by Pulse 98 Oximetry 10/03/16 10/03/16 07:54 07:55 Temperature Pulse Rate Pulse Rate [ Anterior Bilateral Throughout] Pulse Rate [ 83 Bilateral Throughout] Pulse Rate [ Left Radial] Pulse Rate [ Right Radial] Respiratory Rate Respiratory Rate [Anterior Bilateral Throughout] Respiratory 17 Rate [Bilateral Throughout] Blood Pressure Blood Pressure [Left Arm] Blood Pressure [Right Arm] O2 Sat by Pulse 98 Oximetry - General Appearance General appearance: appears stated age, chronically ill, fatigue EENT: ATNC, PERRL, mucous membranes moist Neck: no JVD, other (Rt vascath in place ) Respiratory: Present: Clear to Ascultation Cardiology: regular, S1S2 Gastrointestinal: normal, normoactive bowel sounds Integumentary: no rash, other (no edema ) Neurologic: no focal deficit, alert and oriented x3, strength 5/5, CN 3-12 intact Psychiatric: mood/affect appropriate, cooperative - Lab 10/02/16 07:06 10/03/16 08:27 Most recent lab results Calcium 6.5 mg/dL (8.4-10.2) L 10/03/16 08:27 Phosphorus 7.4 mg/dL (2.5-4.5) H 10/01/16 09:04 Urine Creatinine 123.1 mg/dL (0.1-20.0) H 10/01/16 05:19 Urine Sodium 36 mEq/L 10/01/16 05:19 Urine Total Protein 112 mg/dL (5-11.8) H 10/01/16 05:19
--- NOTE | 2016-10-03 12:48 | Progress Note ---
Assessment and Plan Assessment and plan: Acute COPD exacerbation. * We will continue to monitor pulse oximetry. * Bronchodilators with nebulizer treatment. * Continue O2. Supportive care. Acute bronchitis. * continue on IV antibiotics. No infiltrates on chest x-ray. Chronic CHF, compensated. * 2-D echocardiogram showed EF 45-50% * Chest x-ray and clinical exam reveals no acute decompensation. Elevated troponin. * Etiology may be secondary to chronic renal insufficiency. * Check echocardiogram. CKD. * Creatinine 7.1 today, on IV fluid, nephrology following * Continue to monitor BMP. * I discussed with Nephrology . To start dialysis Diabetes mellitus type 2. * Continue sliding scale and Accu-Cheks. 1800 ADA History Interval history: shortness of breath, no chest pain Hospitalist Physical - Physical exam Narrative exam: Gen: Not in acute distress HEENT: Normocephalic, atraumatic Neck :supple, no JVD Lungs: Clear to auscultation, bilat, no wheeze Heart S1 and S2 regular, no murmurs no gallop Abdomen:soft, nontender, nondistended, normal bowel sounds Ext: no edema, no clubbing or cyanosis Neuro: Awake alert oriented - Constitutional Vitals: Temp Pulse Resp BP Pulse Ox 98.8 F 83 17 151/78 98 10/03/16 07:25 10/03/16 07:54 10/03/16 07:54 10/03/16 07:25 10/03/16 07:55 Results - Labs CBC & Chem 7: 10/02/16 07:06 10/04/16 06:51 Labs: Laboratory Last Values WBC 13.6 K/mm3 (4.5-11.0) H 10/02/16 07:06 RBC 3.51 M/mm3 (3.65-5.03) L 10/02/16 07:06 Hgb 8.8 gm/dl (10.1-14.3) L 10/02/16 07:06 Hct 28.4 % (30.3-42.9) L 10/02/16 07:06 MCV 81 fl (79-97) 10/02/16 07:06 MCH 25 pg (28-32) L 10/02/16 07:06 MCHC 31 % (30-34) 10/02/16 07:06 RDW 16.5 % (13.2-15.2) H 10/02/16 07:06 Plt Count 295 K/mm3 (140-440) 10/02/16 07:06 Lymph % (Auto) [employer] 10/02/16 07:06 [place] % (Auto) [employer] 10/02/16 07:06 Eos % (Auto) [employer] 10/02/16 07:06 Baso % (Auto) [employer] 10/02/16 07:06 Lymph # [employer] 10/02/16 07:06 [place] # [employer] 10/02/16 07:06 Eos # [employer] 10/02/16 07:06 Baso # [employer] 10/02/16 07:06 Add Manual Diff Complete 10/02/16 07:06 Total Counted 100 10/02/16 07:06 Seg Neutrophils % [employer] 10/02/16 07:06 Seg Neuts % (Manual) 79.0 % (40.0-70.0) H 10/02/16 07:06 Band Neutrophils % 9.0 % 10/02/16 07:06 Lymphocytes % (Manual) 11.0 % (13.4-35.0) L 10/02/16 07:06 Reactive Lymphs % (Man) 0 % 10/02/16 07:06 Monocytes % (Manual) 1.0 % (0.0-7.3) 10/02/16 07:06 Eosinophils % (Manual) 0 % (0.0-4.3) 10/02/16 07:06 Basophils % (Manual) 0 % (0.0-1.8) 10/02/16 07:06 Metamyelocytes % 0 % 10/02/16 07:06 Myelocytes % 0 % 10/02/16 07:06 Promyelocytes % 0 % 10/02/16 07:06 Blast Cells % 0 % 10/02/16 07:06 Nucleated RBC % Not Reportable 10/02/16 07:06 Seg Neutrophils # [employer] 10/02/16 07:06 Seg Neutrophils # Man 10.7 K/mm3 (1.8-7.7) H 10/02/16 07:06 Band Neutrophils # 1.2 K/mm3 10/02/16 07:06 Lymphocytes # (Manual) 1.5 K/mm3 (1.2-5.4) 10/02/16 07:06 Abs React Lymphs (Man) 0.0 K/mm3 10/02/16 07:06 Monocytes # (Manual) 0.1 K/mm3 (0.0-0.8) 10/02/16 07:06 Eosinophils # (Manual) 0.0 K/mm3 (0.0-0.4) 10/02/16 07:06 Basophils # (Manual) 0.0 K/mm3 (0.0-0.1) 10/02/16 07:06 Metamyelocytes # 0.0 K/mm3 10/02/16 07:06 Myelocytes # 0.0 K/mm3 10/02/16 07:06 Promyelocytes # 0.0 K/mm3 10/02/16 07:06 Blast Cells # 0.0 K/mm3 10/02/16 07:06 WBC Morphology Not Reportable 10/02/16 07:06 Hypersegmented Neuts Not Reportable 10/02/16 07:06 Hyposegmented Neuts Not Reportable 10/02/16 07:06 Hypogranular Neuts Not Reportable 10/02/16 07:06 Smudge Cells Not Reportable 10/02/16 07:06 Toxic Granulation Not Reportable 10/02/16 07:06 Toxic Vacuolation Not Reportable 10/02/16 07:06 Dohle Bodies Not Reportable 10/02/16 07:06 Pelger-Huet Anomaly Not Reportable 10/02/16 07:06 Aida Rods Not Reportable 10/02/16 07:06 Platelet Estimate Not Reportable 10/02/16 07:06 Clumped Platelets Not Reportable 10/02/16 07:06 Plt Clumps, EDTA Not Reportable 10/02/16 07:06 Large Platelets Not Reportable 10/02/16 07:06 Giant Platelets Not Reportable 10/02/16 07:06 Platelet Satelliting Not Reportable 10/02/16 07:06 Plt Morphology Comment Not Reportable 10/02/16 07:06 RBC Morphology Not Reportable 10/02/16 07:06 Dimorphic RBCs Not Reportable 10/02/16 07:06 Polychromasia Rare 10/02/16 07:06 Hypochromasia Not Reportable 10/02/16 07:06 Poikilocytosis 1+ 10/02/16 07:06 Anisocytosis 1+ 10/02/16 07:06 Microcytosis Not Reportable 10/02/16 07:06 Macrocytosis Not Reportable 10/02/16 07:06 Spherocytes Rare 10/02/16 07:06 Pappenheimer Bodies Not Reportable 10/02/16 07:06 Sickle Cells Not Reportable 10/02/16 07:06 Target Cells Not Reportable 10/02/16 07:06 Tear Drop Cells Not Reportable 10/02/16 07:06 Ovalocytes Not Reportable 10/02/16 07:06 Stomatocytes Rare 09/28/16 08:23 Helmet Cells Not Reportable 10/02/16 07:06 Munoz[place] Bodies Not Reportable 10/02/16 07:06 [place] Rings Not Reportable 10/02/16 07:06 [place] Cells Not Reportable 10/02/16 07:06 Bite Cells Not Reportable 10/02/16 07:06 Crenated Cell Not Reportable 10/02/16 07:06 Elliptocytes Not Reportable 10/02/16 07:06 Acanthocytes (Spur) Not Reportable 10/02/16 07:06 Rouleaux Not Reportable 10/02/16 07:06 Hemoglobin C Crystals Not Reportable 10/02/16 07:06 Schistocytes Not Reportable 10/02/16 07:06 Malaria parasites Not Reportable 10/02/16 07:06 Jalil Bodies Not Reportable 10/02/16 07:06 Hem Pathologist Commnt No 10/02/16 07:06 Sodium 134 mmol/L (137-145) L 10/03/16 08:27 Potassium 4.1 mmol/L (3.6-5.0) 10/03/16 08:27 Chloride 94.7 mmol/L (98-107) L 10/03/16 08:27 Carbon Dioxide 24 mmol/L (22-30) 10/03/16 08:27 Anion Gap 19 mmol/L 10/03/16 08:27 BUN 63 mg/dL (7-17) H 10/03/16 08:27 Creatinine 5.0 mg/dL (0.7-1.2) H 10/03/16 08:27 Estimated GFR 10 ml/min 10/03/16 08:27 BUN/Creatinine Ratio 12.60 % 10/03/16 08:27 Glucose 146 mg/dL (65-100) H 10/03/16 08:27 POC Glucose 174 (70-105) H 10/02/16 22:22 Hemoglobin A1c 5.3 % (4-6) 09/28/16 08:23 Calcium 6.5 mg/dL (8.4-10.2) L 10/03/16 08:27 Phosphorus 7.4 mg/dL (2.5-4.5) H 10/01/16 09:04 Iron 21 ug/dL (37-170) L 10/01/16 09:04 TIBC 269 mcg/dL (250-450) 10/01/16 09:04 Ferritin 82.1 ng/mL (13.0-400.0) 10/01/16 09:05 Total Creatine Kinase 66 units/L (30-135) 09/28/16 16:38 CK-MB (CK-2) 3.4 ng/mL (0.0-4.0) 09/28/16 16:38 CK-MB (CK-2) Rel Index 5.1 (0-4) H 09/28/16 16:38 Troponin T 0.275 ng/mL (0.00-0.029) H* 09/28/16 16:38 Triglycerides 89 mg/dL (2-149) 09/28/16 08:23 Cholesterol 151 mg/dL (50-199) 09/28/16 08:23 LDL Cholesterol Direct 69 mg/dL (50-130) 09/28/16 08:23 HDL Cholesterol 65 mg/dL (40-59) H 09/28/16 08:23 Cholesterol/HDL Ratio 2.32 % 09/28/16 08:23 PTH Intact 506.6 pg/mL (15-65) H 10/01/16 08:59 Urine Color [place] (Yellow) 10/01/16 05:50 Urine Turbidity Turbid (Clear) 10/01/16 05:50 Urine pH 5.0 (5.0-7.0) 10/01/16 05:50 Ur Specific [place] 1.012 (1.003-1.030) 10/01/16 05:50 Urine Protein 30 mg/dl mg/dL (Negative) 10/01/16 05:50 Urine Glucose (UA) 50 mg/dL (Negative) 10/01/16 05:50 Urine Ketones Neg mg/dL (Negative) 10/01/16 05:50 Urine Blood Sm (Negative) 10/01/16 05:50 Urine Nitrite Neg (Negative) 10/01/16 05:50 Urine Bilirubin Neg (Negative) 10/01/16 05:50 Urine Urobilinogen < 2.0 mg/dL (<2.0) 10/01/16 05:50 Ur Leukocyte Esterase Lg (Negative) 10/01/16 05:50 Urine WBC (Auto) > 182.0 /HPF (0.0-6.0) H 10/01/16 05:50 Urine RBC (Auto) 46.0 /HPF (0.0-6.0) 10/01/16 05:50 U Epithel Cells (Auto) 4.0 /HPF (0-13.0) 10/01/16 05:50 Urine Bacteria (Auto) 3+ /HPF (Negative) 10/01/16 05:50 Urine WBC Clumps 3+ /HPF 10/01/16 05:50 Amorphous Crystals 1+ 10/01/16 05:50 Hyaline Casts 97 /LPF 10/01/16 05:50 Urine Mucus 1+ /HPF 10/01/16 05:50 Urine Osmolality 297 Mosm/kg 10/01/16 05:19 Urine Creatinine 123.1 mg/dL (0.1-20.0) H 10/01/16 05:19 Urine Sodium 36 mEq/L 10/01/16 05:19 Urine Total Protein 112 mg/dL (5-11.8) H 10/01/16 05:19 Hepatitis A IgM Ab -1 (NonReactive) 10/02/16 20:50 Hep Bs Antigen Non-reactive (Negative) 10/02/16 20:50 Hep B Core IgM Ab Non-reactive (NonReactive) 10/02/16 20:50 Hepatitis C Antibody Non-reactive (NonReactive) 10/02/16 20:50 Blood Type B POSITIVE 09/28/16 12:12 Antibody Screen Negative 09/28/16 12:12
[2016-10-03] MEDS: HEPARIN IV PRN (15:49)
[2016-10-03] MEDS: REMERON PO SCH (22:05)
--- NOTE | 2016-10-04 01:02 | Progress Note ---
Assessment and Plan Assessment and plan: Acute COPD exacerbation. * We will continue to monitor pulse oximetry. * Bronchodilators with nebulizer treatment. * Continue O2. Supportive care. Acute bronchitis. * continue on IV antibiotics. No infiltrates on chest x-ray. Chronic CHF, compensated. * 2-D echocardiogram showed EF 45-50% * Chest x-ray and clinical exam reveals no acute decompensation. Elevated troponin. * Etiology may be secondary to chronic renal insufficiency. * Check echocardiogram. Acute on chronic kidney disease * Creatinine 5.0 today, improved after starting dialysis today, on IV fluid, nephrology following * I discussed with Nephrology . Diabetes mellitus type 2. * Continue sliding scale and Accu-Cheks. History Interval history: Started on dialysis , Less shortness of breath, no chest pain Hospitalist Physical - Physical exam Narrative exam: Gen: Not in acute distress HEENT: Normocephalic, atraumatic Neck :supple, no JVD Lungs: Clear to auscultation, bilat, no wheeze Heart S1 and S2 regular, no murmurs no gallop Abdomen:soft, nontender, nondistended, normal bowel sounds Ext: no edema, no clubbing or cyanosis Neuro: Awake alert oriented - Constitutional Vitals: Temp Pulse Resp BP Pulse Ox 98.1 F 85 18 164/74 97 10/04/16 00:00 10/04/16 00:00 10/04/16 00:00 10/04/16 00:00 10/04/16 00:00 General appearance: Present: no acute distress, well-nourished Results - Labs CBC & Chem 7: 10/02/16 07:06 10/04/16 06:51 Labs: Laboratory Last Values WBC 13.6 K/mm3 (4.5-11.0) H 10/02/16 07:06 RBC 3.51 M/mm3 (3.65-5.03) L 10/02/16 07:06 Hgb 8.8 gm/dl (10.1-14.3) L 10/02/16 07:06 Hct 28.4 % (30.3-42.9) L 10/02/16 07:06 MCV 81 fl (79-97) 10/02/16 07:06 MCH 25 pg (28-32) L 10/02/16 07:06 MCHC 31 % (30-34) 10/02/16 07:06 RDW 16.5 % (13.2-15.2) H 10/02/16 07:06 Plt Count 295 K/mm3 (140-440) 10/02/16 07:06 Lymph % (Auto) [employer] 10/02/16 07:06 [place] % (Auto) [employer] 10/02/16 07:06 Eos % (Auto) [employer] 10/02/16 07:06 Baso % (Auto) [employer] 10/02/16 07:06 Lymph # [employer] 10/02/16 07:06 [place] # [employer] 10/02/16 07:06 Eos # [employer] 10/02/16 07:06 Baso # [employer] 10/02/16 07:06 Add Manual Diff Complete 10/02/16 07:06 Total Counted 100 10/02/16 07:06 Seg Neutrophils % [employer] 10/02/16 07:06 Seg Neuts % (Manual) 79.0 % (40.0-70.0) H 10/02/16 07:06 Band Neutrophils % 9.0 % 10/02/16 07:06 Lymphocytes % (Manual) 11.0 % (13.4-35.0) L 10/02/16 07:06 Reactive Lymphs % (Man) 0 % 10/02/16 07:06 Monocytes % (Manual) 1.0 % (0.0-7.3) 10/02/16 07:06 Eosinophils % (Manual) 0 % (0.0-4.3) 10/02/16 07:06 Basophils % (Manual) 0 % (0.0-1.8) 10/02/16 07:06 Metamyelocytes % 0 % 10/02/16 07:06 Myelocytes % 0 % 10/02/16 07:06 Promyelocytes % 0 % 10/02/16 07:06 Blast Cells % 0 % 10/02/16 07:06 Nucleated RBC % Not Reportable 10/02/16 07:06 Seg Neutrophils # [employer] 10/02/16 07:06 Seg Neutrophils # Man 10.7 K/mm3 (1.8-7.7) H 10/02/16 07:06 Band Neutrophils # 1.2 K/mm3 10/02/16 07:06 Lymphocytes # (Manual) 1.5 K/mm3 (1.2-5.4) 10/02/16 07:06 Abs React Lymphs (Man) 0.0 K/mm3 10/02/16 07:06 Monocytes # (Manual) 0.1 K/mm3 (0.0-0.8) 10/02/16 07:06 Eosinophils # (Manual) 0.0 K/mm3 (0.0-0.4) 10/02/16 07:06 Basophils # (Manual) 0.0 K/mm3 (0.0-0.1) 10/02/16 07:06 Metamyelocytes # 0.0 K/mm3 10/02/16 07:06 Myelocytes # 0.0 K/mm3 10/02/16 07:06 Promyelocytes # 0.0 K/mm3 10/02/16 07:06 Blast Cells # 0.0 K/mm3 10/02/16 07:06 WBC Morphology Not Reportable 10/02/16 07:06 Hypersegmented Neuts Not Reportable 10/02/16 07:06 Hyposegmented Neuts Not Reportable 10/02/16 07:06 Hypogranular Neuts Not Reportable 10/02/16 07:06 Smudge Cells Not Reportable 10/02/16 07:06 Toxic Granulation Not Reportable 10/02/16 07:06 Toxic Vacuolation Not Reportable 10/02/16 07:06 Dohle Bodies Not Reportable 10/02/16 07:06 Pelger-Huet Anomaly Not Reportable 10/02/16 07:06 Aida Rods Not Reportable 10/02/16 07:06 Platelet Estimate Not Reportable 10/02/16 07:06 Clumped Platelets Not Reportable 10/02/16 07:06 Plt Clumps, EDTA Not Reportable 10/02/16 07:06 Large Platelets Not Reportable 10/02/16 07:06 Giant Platelets Not Reportable 10/02/16 07:06 Platelet Satelliting Not Reportable 10/02/16 07:06 Plt Morphology Comment Not Reportable 10/02/16 07:06 RBC Morphology Not Reportable 10/02/16 07:06 Dimorphic RBCs Not Reportable 10/02/16 07:06 Polychromasia Rare 10/02/16 07:06 Hypochromasia Not Reportable 10/02/16 07:06 Poikilocytosis 1+ 10/02/16 07:06 Anisocytosis 1+ 10/02/16 07:06 Microcytosis Not Reportable 10/02/16 07:06 Macrocytosis Not Reportable 10/02/16 07:06 Spherocytes Rare 10/02/16 07:06 Pappenheimer Bodies Not Reportable 10/02/16 07:06 Sickle Cells Not Reportable 10/02/16 07:06 Target Cells Not Reportable 10/02/16 07:06 Tear Drop Cells Not Reportable 10/02/16 07:06 Ovalocytes Not Reportable 10/02/16 07:06 Stomatocytes Rare 09/28/16 08:23 Helmet Cells Not Reportable 10/02/16 07:06 Munoz-[place] Bodies Not Reportable 10/02/16 07:06 [place] Rings Not Reportable 10/02/16 07:06 [place] Cells Not Reportable 10/02/16 07:06 Bite Cells Not Reportable 10/02/16 07:06 Crenated Cell Not Reportable 10/02/16 07:06 Elliptocytes Not Reportable 10/02/16 07:06 Acanthocytes (Spur) Not Reportable 10/02/16 07:06 Rouleaux Not Reportable 10/02/16 07:06 Hemoglobin C Crystals Not Reportable 10/02/16 07:06 Schistocytes Not Reportable 10/02/16 07:06 Malaria parasites Not Reportable 10/02/16 07:06 Jalil Bodies Not Reportable 10/02/16 07:06 Hem Pathologist Commnt No 10/02/16 07:06 Sodium 134 mmol/L (137-145) L 10/03/16 08:27 Potassium 4.1 mmol/L (3.6-5.0) 10/03/16 08:27 Chloride 94.7 mmol/L (98-107) L 10/03/16 08:27 Carbon Dioxide 24 mmol/L (22-30) 10/03/16 08:27 Anion Gap 19 mmol/L 10/03/16 08:27 BUN 63 mg/dL (7-17) H 10/03/16 08:27 Creatinine 5.0 mg/dL (0.7-1.2) H 10/03/16 08:27 Estimated GFR 10 ml/min 10/03/16 08:27 BUN/Creatinine Ratio 12.60 % 10/03/16 08:27 Glucose 146 mg/dL (65-100) H 10/03/16 08:27 POC Glucose 273 (70-105) H 10/03/16 20:04 Hemoglobin A1c 5.3 % (4-6) 09/28/16 08:23 Calcium 6.5 mg/dL (8.4-10.2) L 10/03/16 08:27 Phosphorus 7.4 mg/dL (2.5-4.5) H 10/01/16 09:04 Iron 21 ug/dL (37-170) L 10/01/16 09:04 TIBC 269 mcg/dL (250-450) 10/01/16 09:04 Ferritin 82.1 ng/mL (13.0-400.0) 10/01/16 09:05 Total Creatine Kinase 66 units/L (30-135) 09/28/16 16:38 CK-MB (CK-2) 3.4 ng/mL (0.0-4.0) 09/28/16 16:38 CK-MB (CK-2) Rel Index 5.1 (0-4) H 09/28/16 16:38 Troponin T 0.275 ng/mL (0.00-0.029) H* 09/28/16 16:38 Triglycerides 89 mg/dL (2-149) 09/28/16 08:23 Cholesterol 151 mg/dL (50-199) 09/28/16 08:23 LDL Cholesterol Direct 69 mg/dL (50-130) 09/28/16 08:23 HDL Cholesterol 65 mg/dL (40-59) H 09/28/16 08:23 Cholesterol/HDL Ratio 2.32 % 09/28/16 08:23 PTH Intact 506.6 pg/mL (15-65) H 10/01/16 08:59 Urine Color [place] (Yellow) 10/01/16 05:50 Urine Turbidity Turbid (Clear) 10/01/16 05:50 Urine pH 5.0 (5.0-7.0) 10/01/16 05:50 Ur Specific [place] 1.012 (1.003-1.030) 10/01/16 05:50 Urine Protein 30 mg/dl mg/dL (Negative) 10/01/16 05:50 Urine Glucose (UA) 50 mg/dL (Negative) 10/01/16 05:50 Urine Ketones Neg mg/dL (Negative) 10/01/16 05:50 Urine Blood Sm (Negative) 10/01/16 05:50 Urine Nitrite Neg (Negative) 10/01/16 05:50 Urine Bilirubin Neg (Negative) 10/01/16 05:50 Urine Urobilinogen < 2.0 mg/dL (<2.0) 10/01/16 05:50 Ur Leukocyte Esterase Lg (Negative) 10/01/16 05:50 Urine WBC (Auto) > 182.0 /HPF (0.0-6.0) H 10/01/16 05:50 Urine RBC (Auto) 46.0 /HPF (0.0-6.0) 10/01/16 05:50 U Epithel Cells (Auto) 4.0 /HPF (0-13.0) 10/01/16 05:50 Urine Bacteria (Auto) 3+ /HPF (Negative) 10/01/16 05:50 Urine WBC Clumps 3+ /HPF 10/01/16 05:50 Amorphous Crystals 1+ 10/01/16 05:50 Hyaline Casts 97 /LPF 10/01/16 05:50 Urine Mucus 1+ /HPF 10/01/16 05:50 Urine Osmolality 297 Mosm/kg 10/01/16 05:19 Urine Creatinine 123.1 mg/dL (0.1-20.0) H 10/01/16 05:19 Urine Sodium 36 mEq/L 10/01/16 05:19 Urine Total Protein 112 mg/dL (5-11.8) H 10/01/16 05:19 Hepatitis A IgM Ab -1 (NonReactive) 10/02/16 20:50 Hep Bs Antigen Non-reactive (Negative) 10/02/16 20:50 Hep B Core IgM Ab Non-reactive (NonReactive) 10/02/16 20:50 Hepatitis C Antibody Non-reactive (NonReactive) 10/02/16 20:50 Blood Type B POSITIVE 09/28/16 12:12 Antibody Screen Negative 09/28/16 12:12
[2016-10-04] MEDS ORDERED: ANCEF/STERILE WATER 2 GM/20 ML IV NR (06:00)
[2016-10-04] MEDS: HEPARIN SUB-Q SCH ×3 (07:02→22:50)
[2016-10-04 07:57] LABS: BUN/Creatinine Ratio 9.23; Calcium 7.5 mg/dL (8.4-10.2); Chloride 96.2 mmol/L (98-107); Potassium 4.1 mmol/L (3.6-5.0)
[2016-10-04] MEDS: PHOSLO PO SCH ×3 (08:39→20:54)
[2016-10-04] MEDS: DUONEB 0.5 MG-3 MG/3 ML SOLN IH SCH ×3 (09:29→20:31)
[2016-10-04] MEDS ORDERED: HEPARIN/NS 5000 UNIT/500ML(CATH LAB) 500 ML IR ONE (09:57)
[2016-10-04] MEDS ORDERED: SUBLIMAZE ONE (09:58)
[2016-10-04] MEDS ORDERED: ANCEF/STERILE WATER 2 GM/20 ML 20 ML IV ONE (09:58)
[2016-10-04] MEDS ORDERED: VERSED ONE (09:58)
[2016-10-04] MEDS ORDERED: NACL 0.9% 250ML 250 ML ONE (09:58)
[2016-10-04] MEDS ORDERED: NORVASC PO SCH ×2 (10:00→12:00)
[2016-10-04] MEDS: XYLOCAINE 1%/ EPI 1:100,000 INFILTRATI ONE ×2 (10:19→10:30)
[2016-10-04] MEDS: HEPARIN 10,000 UNITS/10 ML ONE ×3 (10:33→10:35)
--- NOTE | 2016-10-04 10:45 | Operative Report ---
Operative Report Operative Report: EXAM: 1. Fluoroscopic-guided conversion of a right internal jugular non-tunneled non- cuffed hemodialysis catheter to a tunneled cuffed hemodialysis catheter. DATE: 10/04/16 INDICATION: End-stage renal disease requiring hemodialysis access. MEDICATIONS: Please see nursing report for full details. DEVICES: 23 cm tip to cuff dual lumen hemodialysis catheter GRAB OPERATOR: ROSA SANDERS MD CONTRAST: None PROCEDURE: The risks, benefits, and alternatives were discussed and informed consent was obtained. The patient was transported to the angiography suite in satisfactory/ stable condition and was transported onto the angiography table. The patient was prepped and draped in a sterile fashion. The existing vascath was prepped and draped in a sterile fashion. Suture was cut. 0.035 inch wire was advanced through the Vas-Cath into the IVC. Vas-Cath was removed. The wire was cleaned with ChloraPrep. Over the 0.035 inch wire, serial dilatation was performed with ultimate placement of a peel-away sheath. Reverse tunneled PermCath was inserted to the peel-away sheath and positioned in the right atrium. Peel-away sheath removed. A suitable exit site was identified on the patient's chest inferior and lateral to the venotomy. The site was anesthetized with local anesthetic and the track was anesthetized. Dermatotomy was made. Reverse tunneler was then tunneled from dermatotomy to the venotomy site/catheter. The PermCath was attached to the tunneling device and reverse tunneled between the dermatotomy to the venotomy. The catheter was reassembled. 4-0 Vicryl suture was used to close the venotomy and Dermabond was then applied. 2-0 Ethilon suture was used to secure the catheter at the dermatotomy. The catheter was charged with heparin 1000 units/mL space. The patient was transferred from the angiography suite back to the floor in stable condition. FINDINGS: 1. Excellent flow was obtained through the dialysis catheter with 20 mL syringes. 2. The catheter tip is in the right atrium. IMPRESSION: 1. Fluoroscopic-guided conversion of a right internal jugular non-tunneled non- cuffed hemodialysis catheter to a tunneled cuffed hemodialysis catheter.
[2016-10-04] MEDS: NORMODYNE PO SCH ×2 (11:26→22:47)
[2016-10-04] MEDS: PROTONIX PO SCH (11:26)
[2016-10-04] MEDS: ROCALTROL PO SCH (11:27)
[2016-10-04] MEDS: ROCEPHIN/NS 1 GM/50 ML 50 ML IV SCH (11:27)
[2016-10-04] MEDS: MUCINEX ER PO SCH ×2 (11:27→22:47)
--- NOTE | 2016-10-04 11:47 | Progress Note ---
Assessment and Plan - Patient Problems (1) Acute on chronic renal failure Current Visit: No Status: Acute Plan to address problem: acute kidney injury on advanced CKD possibly due to ATN in the setting of UTI/ pyelo. Progressive CKD also possible. patient tolerated HD well yesterday. Will continue intermittent HD on T/T/S while inpatient. Will monitor I/Os, electrolytes and renal parameters closely and assess for signs of renal recovery. Case management consult for outpatient HD arrangement for JAMEE on advanced CKD. (2) Acute bronchitis Current Visit: Yes Status: Acute Qualifiers: Bronchitis organism: other organism Qualified Code(s): J20.8 - Acute bronchitis due to other specified organisms Plan to address problem: continue ABX w/ ceftriaxon (3) CHF (congestive heart failure) Current Visit: Yes Status: Acute Qualifiers: Congestive heart failure type: unspecified congestive heart failure type Congestive heart failure chronicity: unspecified congestive heart failure chronicity Qualified Code(s): I50.9 - Heart failure, unspecified Plan to address problem: appears well compensated currently. (4) Anemia Current Visit: Yes Status: Acute Qualifiers: Anemia type: unspecified type Qualified Code(s): D64.9 - Anemia, unspecified Plan to address problem: anemia of CKD, will start epo [id number] tiw with HD. (5) HTN (hypertension) Current Visit: Yes Status: Acute Qualifiers: Hypertension type: essential hypertension Qualified Code(s): I10 - Essential (primary) hypertension Plan to address problem: BP remains elevated. Will increase amlodipine to 10mg po qd, and also increase UF as tolerated.. (6) Elevated troponin Current Visit: Yes Status: Acute Plan to address problem: likely due to CKD, follow cardiology recs. (7) Metabolic acidemia Current Visit: Yes Status: Acute Plan to address problem: improved with HD. (8) Secondary hyperparathyroidism (of renal origin) Current Visit: Yes Status: Acute Plan to address problem: continue phoslo 2tabd tid w/ meals. started calcitriol 0.25mcg po qd. . Subjective Date of service: 10/04/16 Interval history: Pt s/p permcath placement without complication, feeling better after second HD, improved nausea, denies SOB, CP. Objective - Vital Signs Vital signs: Vital Signs - 12hr 10/04/16 10/04/16 10/04/16 00:00 04:00 08:03 Temperature 98.1 F 98.0 F 97.9 F Pulse Rate [ Left Radial] Pulse Rate [ 85 81 75 Right Radial] Respiratory 18 18 18 Rate Blood Pressure 164/74 146/61 [Left Arm] Blood Pressure 178/78 [Right Arm] O2 Sat by Pulse 97 98 94 Oximetry 10/04/16 11:15 Temperature 97.8 F Pulse Rate [ 77 Left Radial] Pulse Rate [ Right Radial] Respiratory 18 Rate Blood Pressure 199/92 [Left Arm] Blood Pressure [Right Arm] O2 Sat by Pulse 98 Oximetry - General Appearance General appearance: appears stated age, chronically ill, fatigue EENT: ATNC, PERRL, mucous membranes moist Neck: no JVD Respiratory: Present: Clear to Ascultation Cardiology: regular, S1S2 Gastrointestinal: normal, normoactive bowel sounds Integumentary: no rash, other (no edema ) Neurologic: no focal deficit, alert and oriented x3, strength 5/5, CN 3-12 intact Psychiatric: mood/affect appropriate, cooperative - Lab 10/02/16 07:06 10/04/16 06:51 Most recent lab results Calcium 7.5 mg/dL (8.4-10.2) L D 10/04/16 06:51 Phosphorus 7.4 mg/dL (2.5-4.5) H 10/01/16 09:04 Urine Creatinine 123.1 mg/dL (0.1-20.0) H 10/01/16 05:19 Urine Sodium 36 mEq/L 10/01/16 05:19 Urine Total Protein 112 mg/dL (5-11.8) H 10/01/16 05:19
[2016-10-04] MEDS ORDERED: NORVASC PO ONE (12:00)
[2016-10-04] MEDS ORDERED: PROVENTIL IH PRN (14:03)
[2016-10-04] MEDS: ZITHROMAX 500 MG in NACL 0.9% 250ML 250 ML IV SCH (14:36)
--- NOTE | 2016-10-04 18:14 | Progress Note ---
Assessment and Plan Assessment and plan: Acute COPD exacerbation. * Bronchodilators with nebulizer treatment. * Continue O2. Supportive care. Acute bronchitis. * continue on IV antibiotics. No infiltrates on chest x-ray. Chronic CHF, compensated. * 2-D echocardiogram showed EF 45-50% * Chest x-ray and clinical exam reveals no acute decompensation. Elevated troponin. * Etiology may be secondary to chronic renal insufficiency. * Check echocardiogram. Acute on chronic kidney disease * Creatinine 3.9 today, improved after starting dialysis , nephrology following Diabetes mellitus type 2. * Continue sliding scale and Accu-Cheks. History Interval history: Started on dialysis , No more shortness of breath, no chest pain Hospitalist Physical - Physical exam Narrative exam: Gen: Not in acute distress HEENT: Normocephalic, atraumatic Neck :supple, no JVD Lungs: Clear to auscultation, bilat, no wheeze Heart S1 and S2 regular, no murmurs, no rubs, no gallop Abdomen:soft, nontender, nondistended, normal bowel sounds Ext: no edema, no clubbing or cyanosis Neuro: Awake alert oriented, no focal sugns - Constitutional Vitals: Temp Pulse Resp BP Pulse Ox 98.1 F 75 20 169/80 99 10/04/16 15:33 10/04/16 15:33 10/04/16 15:33 10/04/16 15:33 10/04/16 15:33 General appearance: Present: no acute distress, well-nourished Results - Labs CBC & Chem 7: 10/02/16 07:06 10/06/16 06:41 Labs: Laboratory Last Values WBC 13.6 K/mm3 (4.5-11.0) H 10/02/16 07:06 RBC 3.51 M/mm3 (3.65-5.03) L 10/02/16 07:06 Hgb 8.8 gm/dl (10.1-14.3) L 10/02/16 07:06 Hct 28.4 % (30.3-42.9) L 10/02/16 07:06 MCV 81 fl (79-97) 10/02/16 07:06 MCH 25 pg (28-32) L 10/02/16 07:06 MCHC 31 % (30-34) 10/02/16 07:06 RDW 16.5 % (13.2-15.2) H 10/02/16 07:06 Plt Count 295 K/mm3 (140-440) 10/02/16 07:06 Lymph % (Auto) Educational Sign Language Interpreter 10/02/16 07:06 [place] % (Auto) Educational Sign Language Interpreter 10/02/16 07:06 Eos % (Auto) Educational Sign Language Interpreter 10/02/16 07:06 Baso % (Auto) Educational Sign Language Interpreter 10/02/16 07:06 Lymph # Educational Sign Language Interpreter 10/02/16 07:06 [place] # Educational Sign Language Interpreter 10/02/16 07:06 Eos # Educational Sign Language Interpreter 10/02/16 07:06 Baso # Educational Sign Language Interpreter 10/02/16 07:06 Add Manual Diff Complete 10/02/16 07:06 Total Counted 100 10/02/16 07:06 Seg Neutrophils % Educational Sign Language Interpreter 10/02/16 07:06 Seg Neuts % (Manual) 79.0 % (40.0-70.0) H 10/02/16 07:06 Band Neutrophils % 9.0 % 10/02/16 07:06 Lymphocytes % (Manual) 11.0 % (13.4-35.0) L 10/02/16 07:06 Reactive Lymphs % (Man) 0 % 10/02/16 07:06 Monocytes % (Manual) 1.0 % (0.0-7.3) 10/02/16 07:06 Eosinophils % (Manual) 0 % (0.0-4.3) 10/02/16 07:06 Basophils % (Manual) 0 % (0.0-1.8) 10/02/16 07:06 Metamyelocytes % 0 % 10/02/16 07:06 Myelocytes % 0 % 10/02/16 07:06 Promyelocytes % 0 % 10/02/16 07:06 Blast Cells % 0 % 10/02/16 07:06 Nucleated RBC % Not Reportable 10/02/16 07:06 Seg Neutrophils # Educational Sign Language Interpreter 10/02/16 07:06 Seg Neutrophils # Man 10.7 K/mm3 (1.8-7.7) H 10/02/16 07:06 Band Neutrophils # 1.2 K/mm3 10/02/16 07:06 Lymphocytes # (Manual) 1.5 K/mm3 (1.2-5.4) 10/02/16 07:06 Abs React Lymphs (Man) 0.0 K/mm3 10/02/16 07:06 Monocytes # (Manual) 0.1 K/mm3 (0.0-0.8) 10/02/16 07:06 Eosinophils # (Manual) 0.0 K/mm3 (0.0-0.4) 10/02/16 07:06 Basophils # (Manual) 0.0 K/mm3 (0.0-0.1) 10/02/16 07:06 Metamyelocytes # 0.0 K/mm3 10/02/16 07:06 Myelocytes # 0.0 K/mm3 10/02/16 07:06 Promyelocytes # 0.0 K/mm3 10/02/16 07:06 Blast Cells # 0.0 K/mm3 10/02/16 07:06 WBC Morphology Not Reportable 10/02/16 07:06 Hypersegmented Neuts Not Reportable 10/02/16 07:06 Hyposegmented Neuts Not Reportable 10/02/16 07:06 Hypogranular Neuts Not Reportable 10/02/16 07:06 Smudge Cells Not Reportable 10/02/16 07:06 Toxic Granulation Not Reportable 10/02/16 07:06 Toxic Vacuolation Not Reportable 10/02/16 07:06 Dohle Bodies Not Reportable 10/02/16 07:06 Pelger-Huet Anomaly Not Reportable 10/02/16 07:06 Aida Rods Not Reportable 10/02/16 07:06 Platelet Estimate Not Reportable 10/02/16 07:06 Clumped Platelets Not Reportable 10/02/16 07:06 Plt Clumps, EDTA Not Reportable 10/02/16 07:06 Large Platelets Not Reportable 10/02/16 07:06 Giant Platelets Not Reportable 10/02/16 07:06 Platelet Satelliting Not Reportable 10/02/16 07:06 Plt Morphology Comment Not Reportable 10/02/16 07:06 RBC Morphology Not Reportable 10/02/16 07:06 Dimorphic RBCs Not Reportable 10/02/16 07:06 Polychromasia Rare 10/02/16 07:06 Hypochromasia Not Reportable 10/02/16 07:06 Poikilocytosis 1+ 10/02/16 07:06 Anisocytosis 1+ 10/02/16 07:06 Microcytosis Not Reportable 10/02/16 07:06 Macrocytosis Not Reportable 10/02/16 07:06 Spherocytes Rare 10/02/16 07:06 Pappenheimer Bodies Not Reportable 10/02/16 07:06 Sickle Cells Not Reportable 10/02/16 07:06 Target Cells Not Reportable 10/02/16 07:06 Tear Drop Cells Not Reportable 10/02/16 07:06 Ovalocytes Not Reportable 10/02/16 07:06 Stomatocytes Rare 09/28/16 08:23 Helmet Cells Not Reportable 10/02/16 07:06 [place] Bodies Not Reportable 10/02/16 07:06 [place] Rings Not Reportable 10/02/16 07:06 [place] Cells Not Reportable 10/02/16 07:06 Bite Cells Not Reportable 10/02/16 07:06 Crenated Cell Not Reportable 10/02/16 07:06 Elliptocytes Not Reportable 10/02/16 07:06 Acanthocytes (Spur) Not Reportable 10/02/16 07:06 Rouleaux Not Reportable 10/02/16 07:06 Hemoglobin C Crystals Not Reportable 10/02/16 07:06 Schistocytes Not Reportable 10/02/16 07:06 Malaria parasites Not Reportable 10/02/16 07:06 Jalil Bodies Not Reportable 10/02/16 07:06 Hem Pathologist Commnt No 10/02/16 07:06 Sodium 135 mmol/L (137-145) L 10/04/16 06:51 Potassium 4.1 mmol/L (3.6-5.0) 10/04/16 06:51 Chloride 96.2 mmol/L (98-107) L 10/04/16 06:51 Carbon Dioxide 28 mmol/L (22-30) 10/04/16 06:51 Anion Gap 15 mmol/L 10/04/16 06:51 BUN 36 mg/dL (7-17) H 10/04/16 06:51 Creatinine 3.9 mg/dL (0.7-1.2) H 10/04/16 06:51 Estimated GFR 13 ml/min 10/04/16 06:51 BUN/Creatinine Ratio 9.23 % 10/04/16 06:51 Glucose 96 mg/dL (65-100) 10/04/16 06:51 POC Glucose 218 (70-105) H 10/04/16 15:32 Hemoglobin A1c 5.3 % (4-6) 09/28/16 08:23 Calcium 7.5 mg/dL (8.4-10.2) L D 10/04/16 06:51 Phosphorus 7.4 mg/dL (2.5-4.5) H 10/01/16 09:04 Iron 21 ug/dL (37-170) L 10/01/16 09:04 TIBC 269 mcg/dL (250-450) 10/01/16 09:04 Ferritin 82.1 ng/mL (13.0-400.0) 10/01/16 09:05 Total Creatine Kinase 66 units/L (30-135) 09/28/16 16:38 CK-MB (CK-2) 3.4 ng/mL (0.0-4.0) 09/28/16 16:38 CK-MB (CK-2) Rel Index 5.1 (0-4) H 09/28/16 16:38 Troponin T 0.275 ng/mL (0.00-0.029) H* 09/28/16 16:38 Triglycerides 89 mg/dL (2-149) 09/28/16 08:23 Cholesterol 151 mg/dL (50-199) 09/28/16 08:23 LDL Cholesterol Direct 69 mg/dL (50-130) 09/28/16 08:23 HDL Cholesterol 65 mg/dL (40-59) H 09/28/16 08:23 Cholesterol/HDL Ratio 2.32 % 09/28/16 08:23 PTH Intact 506.6 pg/mL (15-65) H 10/01/16 08:59 Urine Color [place] (Yellow) 10/01/16 05:50 Urine Turbidity Turbid (Clear) 10/01/16 05:50 Urine pH 5.0 (5.0-7.0) 10/01/16 05:50 Ur Specific [place] 1.012 (1.003-1.030) 10/01/16 05:50 Urine Protein 30 mg/dl mg/dL (Negative) 10/01/16 05:50 Urine Glucose (UA) 50 mg/dL (Negative) 10/01/16 05:50 Urine Ketones Neg mg/dL (Negative) 10/01/16 05:50 Urine Blood Sm (Negative) 10/01/16 05:50 Urine Nitrite Neg (Negative) 10/01/16 05:50 Urine Bilirubin Neg (Negative) 10/01/16 05:50 Urine Urobilinogen < 2.0 mg/dL (<2.0) 10/01/16 05:50 Ur Leukocyte Esterase Lg (Negative) 10/01/16 05:50 Urine WBC (Auto) > 182.0 /HPF (0.0-6.0) H 10/01/16 05:50 Urine RBC (Auto) 46.0 /HPF (0.0-6.0) 10/01/16 05:50 U Epithel Cells (Auto) 4.0 /HPF (0-13.0) 10/01/16 05:50 Urine Bacteria (Auto) 3+ /HPF (Negative) 10/01/16 05:50 Urine WBC Clumps 3+ /HPF 10/01/16 05:50 Amorphous Crystals 1+ 10/01/16 05:50 Hyaline Casts 97 /LPF 10/01/16 05:50 Urine Mucus 1+ /HPF 10/01/16 05:50 Urine Osmolality 297 Mosm/kg 10/01/16 05:19 Urine Creatinine 123.1 mg/dL (0.1-20.0) H 10/01/16 05:19 Urine Sodium 36 mEq/L 10/01/16 05:19 Urine Total Protein 112 mg/dL (5-11.8) H 10/01/16 05:19 Hepatitis A IgM Ab -1 (NonReactive) 10/02/16 20:50 Hep Bs Antigen Non-reactive (Negative) 10/02/16 20:50 Hep B Core IgM Ab Non-reactive (NonReactive) 10/02/16 20:50 Hepatitis C Antibody Non-reactive (NonReactive) 10/02/16 20:50 Blood Type B POSITIVE 09/28/16 12:12 Antibody Screen Negative 09/28/16 12:12
[2016-10-04] MEDS: REMERON PO SCH (22:47)
[2016-10-05] MEDS: HEPARIN SUB-Q SCH ×3 (06:45→22:19)
[2016-10-05 08:01] LABS: BUN/Creatinine Ratio 10.4; Calcium 7.8 mg/dL (8.4-10.2); Potassium 4.8 mmol/L (3.6-5.0)
--- NOTE | 2016-10-05 08:36 | Vascular Lab Report ---
MISCELLANEOUS VESSEL IDENTIFICATION: COMMENTS ON THE SCAN: The right internal jugular vein was identified and under real-time ultrasound guidance was cannulated. IMPRESSION: Successful ultrasound guided vein cannulation.
--- NOTE | 2016-10-05 08:45 | Vascular Lab Report ---
Upper extremity vein mapping Reason for exam: Preoperative evaluation for hemodialysis access Comments: On the right, the cephalic vein is not usable from wrist to shoulder due to small size. The basilic vein is usable from elbow to shoulder. The brachial and radial arteries are patent. The radial artery is small. On the left, the cephalic vein is not usable from wrist to shoulder due to small size. The basilic vein is usable from elbow to shoulder. The brachial and radial arteries are patent. The radial artery is small. Impression: Both cephalic veins are not suitable for use as AV access sites. Both basilic veins are suitable for use as AV access sites from elbow to shoulder Bilateral radial arteries are small
[2016-10-05] MEDS: ROCEPHIN/NS 1 GM/50 ML 50 ML IV SCH (09:07)
[2016-10-05] MEDS: PHOSLO PO SCH ×3 (09:08→22:18)
[2016-10-05] MEDS: MUCINEX ER PO SCH ×2 (09:08→22:18)
[2016-10-05] MEDS: NORMODYNE PO SCH ×2 (09:08→22:19)
[2016-10-05] MEDS: NORVASC PO SCH (09:09)
[2016-10-05] MEDS: PROTONIX PO SCH (09:09)
[2016-10-05] MEDS: ROCALTROL PO SCH (09:18)
[2016-10-05] MEDS: DUONEB 0.5 MG-3 MG/3 ML SOLN IH SCH ×3 (09:54→20:20)
--- NOTE | 2016-10-05 09:59 | Progress Note ---
Assessment and Plan - Patient Problems (1) Acute on chronic renal failure Current Visit: No Status: Acute Plan to address problem: acute kidney injury on advanced CKD possibly due to ATN in the setting of UTI/ pyelo. Progressive CKD also possible. continue intermittent HD on T/T/S while inpatient. Outpatient HD being arranged, appreciate case management input. Will monitor I/Os, electrolytes and renal parameters closely and assess for signs of renal recovery. (2) Acute bronchitis Current Visit: Yes Status: Acute Qualifiers: Bronchitis organism: other organism Qualified Code(s): J20.8 - Acute bronchitis due to other specified organisms Plan to address problem: continue ABX w/ ceftriaxon (3) CHF (congestive heart failure) Current Visit: Yes Status: Acute Qualifiers: Congestive heart failure type: unspecified congestive heart failure type Congestive heart failure chronicity: unspecified congestive heart failure chronicity Qualified Code(s): I50.9 - Heart failure, unspecified Plan to address problem: appears well compensated currently. (4) Anemia Current Visit: Yes Status: Acute Qualifiers: Anemia type: unspecified type Qualified Code(s): D64.9 - Anemia, unspecified Plan to address problem: anemia of CKD, will start epo [id number] tiw with HD. (5) HTN (hypertension) Current Visit: Yes Status: Acute Qualifiers: Hypertension type: essential hypertension Qualified Code(s): I10 - Essential (primary) hypertension Plan to address problem: BP improved on current regimen with amlodipine 10mg po qd and labetalol 200mg po bid. Will adjust UF as tolerated. (6) Elevated troponin Current Visit: Yes Status: Acute Plan to address problem: likely due to CKD, follow cardiology recs. (7) Metabolic acidemia Current Visit: Yes Status: Acute Plan to address problem: improved with HD. (8) Secondary hyperparathyroidism (of renal origin) Current Visit: Yes Status: Acute Plan to address problem: continue phoslo 2tabd tid w/ meals. started calcitriol 0.25mcg po qd. . Subjective Date of service: 10/05/16 Interval history: Patient awake, alert, reports improved appetite. Objective - Vital Signs Vital signs: Vital Signs - 12hr 10/04/16 10/05/16 10/05/16 22:47 01:41 05:47 Temperature 97.6 F 98.2 F Pulse Rate 72 Pulse Rate [ 64 82 Apical] Respiratory 20 18 Rate Blood Pressure 154/73 Blood Pressure 138/86 138/68 [Left Arm] O2 Sat by Pulse 98 98 Oximetry 10/05/16 07:25 Temperature 97.8 F Pulse Rate Pulse Rate [ 67 Apical] Respiratory 20 Rate Blood Pressure Blood Pressure 174/76 [Left Arm] O2 Sat by Pulse 99 Oximetry - General Appearance General appearance: well-developed, appears stated age, fatigue EENT: ATNC, PERRL, mucous membranes moist Neck: no JVD Respiratory: Present: Clear to Ascultation Cardiology: regular, S1S2 Gastrointestinal: normal, normoactive bowel sounds Integumentary: no rash, other (no edema ) Neurologic: no focal deficit, alert and oriented x3, strength 5/5, CN 3-12 intact Psychiatric: mood/affect appropriate, cooperative - Lab 10/02/16 07:06 10/05/16 07:03 Most recent lab results Calcium 7.8 mg/dL (8.4-10.2) L 10/05/16 07:03 Phosphorus 7.4 mg/dL (2.5-4.5) H 10/01/16 09:04 Urine Creatinine 123.1 mg/dL (0.1-20.0) H 10/01/16 05:19 Urine Sodium 36 mEq/L 10/01/16 05:19 Urine Total Protein 112 mg/dL (5-11.8) H 10/01/16 05:19
[2016-10-05] MEDS: ZITHROMAX 500 MG in NACL 0.9% 250ML 250 ML IV SCH (10:00)
--- NOTE | 2016-10-05 15:03 | Progress Note ---
Assessment and Plan Assessment and plan: Acute on chronic kidney disease * Creatinine 4.9 today, improved after starting dialysis , nephrology following Acute COPD exacerbation. Continue solumedrol, Duoneb * Bronchodilators with nebulizer treatment. * Continue O2. Supportive care. Acute bronchitis. * continue on IV antibiotics. No infiltrates on chest x-ray. Chronic CHF, compensated. * 2-D echocardiogram showed EF 45-50% * Chest x-ray and clinical exam reveals no acute decompensation. Elevated troponin. * Etiology may be secondary to chronic renal insufficiency. * Check echocardiogram. Diabetes mellitus type 2. * Continue sliding scale and Accu-Cheks. History Interval history: Started on dialysis , No more shortness of breath, no chest pain Hospitalist Physical - Physical exam Narrative exam: Gen: Not in acute distress HEENT: Normocephalic, atraumatic Neck :supple, no JVD Lungs: Clear to auscultation, bilat, no wheeze Heart S1 and S2 regular, no murmurs, no rubs, no gallop Abdomen:soft, nontender, nondistended, normal bowel sounds Ext: no edema, no clubbing or cyanosis Neuro: Awake alert oriented, no focal sugns - Constitutional Vitals: Temp Pulse Resp BP Pulse Ox 98.3 F 71 20 154/71 98 10/05/16 11:38 10/05/16 13:15 10/05/16 11:38 10/05/16 13:15 10/05/16 11:38 General appearance: Present: no acute distress, well-nourished Results - Labs CBC & Chem 7: 10/02/16 07:06 10/06/16 06:41 Labs: Laboratory Last Values WBC 13.6 K/mm3 (4.5-11.0) H 10/02/16 07:06 RBC 3.51 M/mm3 (3.65-5.03) L 10/02/16 07:06 Hgb 8.8 gm/dl (10.1-14.3) L 10/02/16 07:06 Hct 28.4 % (30.3-42.9) L 10/02/16 07:06 MCV 81 fl (79-97) 10/02/16 07:06 MCH 25 pg (28-32) L 10/02/16 07:06 MCHC 31 % (30-34) 10/02/16 07:06 RDW 16.5 % (13.2-15.2) H 10/02/16 07:06 Plt Count 295 K/mm3 (140-440) 10/02/16 07:06 Lymph % (Auto) Oil Deliverer 10/02/16 07:06 [place] % (Auto) Oil Deliverer 10/02/16 07:06 Eos % (Auto) Oil Deliverer 10/02/16 07:06 Baso % (Auto) Oil Deliverer 10/02/16 07:06 Lymph # Oil Deliverer 10/02/16 07:06 [place] # Oil Deliverer 10/02/16 07:06 Eos # Oil Deliverer 10/02/16 07:06 Baso # Oil Deliverer 10/02/16 07:06 Add Manual Diff Complete 10/02/16 07:06 Total Counted 100 10/02/16 07:06 Seg Neutrophils % Oil Deliverer 10/02/16 07:06 Seg Neuts % (Manual) 79.0 % (40.0-70.0) H 10/02/16 07:06 Band Neutrophils % 9.0 % 10/02/16 07:06 Lymphocytes % (Manual) 11.0 % (13.4-35.0) L 10/02/16 07:06 Reactive Lymphs % (Man) 0 % 10/02/16 07:06 Monocytes % (Manual) 1.0 % (0.0-7.3) 10/02/16 07:06 Eosinophils % (Manual) 0 % (0.0-4.3) 10/02/16 07:06 Basophils % (Manual) 0 % (0.0-1.8) 10/02/16 07:06 Metamyelocytes % 0 % 10/02/16 07:06 Myelocytes % 0 % 10/02/16 07:06 Promyelocytes % 0 % 10/02/16 07:06 Blast Cells % 0 % 10/02/16 07:06 Nucleated RBC % Not Reportable 10/02/16 07:06 Seg Neutrophils # Oil Deliverer 10/02/16 07:06 Seg Neutrophils # Man 10.7 K/mm3 (1.8-7.7) H 10/02/16 07:06 Band Neutrophils # 1.2 K/mm3 10/02/16 07:06 Lymphocytes # (Manual) 1.5 K/mm3 (1.2-5.4) 10/02/16 07:06 Abs React Lymphs (Man) 0.0 K/mm3 10/02/16 07:06 Monocytes # (Manual) 0.1 K/mm3 (0.0-0.8) 10/02/16 07:06 Eosinophils # (Manual) 0.0 K/mm3 (0.0-0.4) 10/02/16 07:06 Basophils # (Manual) 0.0 K/mm3 (0.0-0.1) 10/02/16 07:06 Metamyelocytes # 0.0 K/mm3 10/02/16 07:06 Myelocytes # 0.0 K/mm3 10/02/16 07:06 Promyelocytes # 0.0 K/mm3 10/02/16 07:06 Blast Cells # 0.0 K/mm3 10/02/16 07:06 WBC Morphology Not Reportable 10/02/16 07:06 Hypersegmented Neuts Not Reportable 10/02/16 07:06 Hyposegmented Neuts Not Reportable 10/02/16 07:06 Hypogranular Neuts Not Reportable 10/02/16 07:06 Smudge Cells Not Reportable 10/02/16 07:06 Toxic Granulation Not Reportable 10/02/16 07:06 Toxic Vacuolation Not Reportable 10/02/16 07:06 Dohle Bodies Not Reportable 10/02/16 07:06 Pelger-Huet Anomaly Not Reportable 10/02/16 07:06 Aida Rods Not Reportable 10/02/16 07:06 Platelet Estimate Not Reportable 10/02/16 07:06 Clumped Platelets Not Reportable 10/02/16 07:06 Plt Clumps, EDTA Not Reportable 10/02/16 07:06 Large Platelets Not Reportable 10/02/16 07:06 Giant Platelets Not Reportable 10/02/16 07:06 Platelet Satelliting Not Reportable 10/02/16 07:06 Plt Morphology Comment Not Reportable 10/02/16 07:06 RBC Morphology Not Reportable 10/02/16 07:06 Dimorphic RBCs Not Reportable 10/02/16 07:06 Polychromasia Rare 10/02/16 07:06 Hypochromasia Not Reportable 10/02/16 07:06 Poikilocytosis 1+ 10/02/16 07:06 Anisocytosis 1+ 10/02/16 07:06 Microcytosis Not Reportable 10/02/16 07:06 Macrocytosis Not Reportable 10/02/16 07:06 Spherocytes Rare 10/02/16 07:06 Pappenheimer Bodies Not Reportable 10/02/16 07:06 Sickle Cells Not Reportable 10/02/16 07:06 Target Cells Not Reportable 10/02/16 07:06 Tear Drop Cells Not Reportable 10/02/16 07:06 Ovalocytes Not Reportable 10/02/16 07:06 Stomatocytes Rare 09/28/16 08:23 Helmet Cells Not Reportable 10/02/16 07:06 [place] Bodies Not Reportable 10/02/16 07:06 [place] Rings Not Reportable 10/02/16 07:06 [place] Cells Not Reportable 10/02/16 07:06 Bite Cells Not Reportable 10/02/16 07:06 Crenated Cell Not Reportable 10/02/16 07:06 Elliptocytes Not Reportable 10/02/16 07:06 Acanthocytes (Spur) Not Reportable 10/02/16 07:06 Rouleaux Not Reportable 10/02/16 07:06 Hemoglobin C Crystals Not Reportable 10/02/16 07:06 Schistocytes Not Reportable 10/02/16 07:06 Malaria parasites Not Reportable 10/02/16 07:06 Jalil Bodies Not Reportable 10/02/16 07:06 Hem Pathologist Commnt No 10/02/16 07:06 Sodium 136 mmol/L (137-145) L 10/05/16 07:03 Potassium 4.8 mmol/L (3.6-5.0) 10/05/16 07:03 Chloride 97.0 mmol/L (98-107) L 10/05/16 07:03 Carbon Dioxide 27 mmol/L (22-30) 10/05/16 07:03 Anion Gap 17 mmol/L 10/05/16 07:03 BUN 51 mg/dL (7-17) H 10/05/16 07:03 Creatinine 4.9 mg/dL (0.7-1.2) H 10/05/16 07:03 Estimated GFR 10 ml/min 10/05/16 07:03 BUN/Creatinine Ratio 10.40 % 10/05/16 07:03 Glucose 121 mg/dL (65-100) H 10/05/16 07:03 POC Glucose 280 (70-105) H 10/05/16 11:13 Hemoglobin A1c 5.3 % (4-6) 09/28/16 08:23 Calcium 7.8 mg/dL (8.4-10.2) L 10/05/16 07:03 Phosphorus 7.4 mg/dL (2.5-4.5) H 10/01/16 09:04 Iron 21 ug/dL (37-170) L 10/01/16 09:04 TIBC 269 mcg/dL (250-450) 10/01/16 09:04 Ferritin 82.1 ng/mL (13.0-400.0) 10/01/16 09:05 Total Creatine Kinase 66 units/L (30-135) 09/28/16 16:38 CK-MB (CK-2) 3.4 ng/mL (0.0-4.0) 09/28/16 16:38 CK-MB (CK-2) Rel Index 5.1 (0-4) H 09/28/16 16:38 Troponin T 0.275 ng/mL (0.00-0.029) H* 09/28/16 16:38 Triglycerides 89 mg/dL (2-149) 09/28/16 08:23 Cholesterol 151 mg/dL (50-199) 09/28/16 08:23 LDL Cholesterol Direct 69 mg/dL (50-130) 09/28/16 08:23 HDL Cholesterol 65 mg/dL (40-59) H 09/28/16 08:23 Cholesterol/HDL Ratio 2.32 % 09/28/16 08:23 PTH Intact 506.6 pg/mL (15-65) H 10/01/16 08:59 Urine Color [place] (Yellow) 10/01/16 05:50 Urine Turbidity Turbid (Clear) 10/01/16 05:50 Urine pH 5.0 (5.0-7.0) 10/01/16 05:50 Ur Specific [place] 1.012 (1.003-1.030) 10/01/16 05:50 Urine Protein 30 mg/dl mg/dL (Negative) 10/01/16 05:50 Urine Glucose (UA) 50 mg/dL (Negative) 10/01/16 05:50 Urine Ketones Neg mg/dL (Negative) 10/01/16 05:50 Urine Blood Sm (Negative) 10/01/16 05:50 Urine Nitrite Neg (Negative) 10/01/16 05:50 Urine Bilirubin Neg (Negative) 10/01/16 05:50 Urine Urobilinogen < 2.0 mg/dL (<2.0) 10/01/16 05:50 Ur Leukocyte Esterase Lg (Negative) 10/01/16 05:50 Urine WBC (Auto) > 182.0 /HPF (0.0-6.0) H 10/01/16 05:50 Urine RBC (Auto) 46.0 /HPF (0.0-6.0) 10/01/16 05:50 U Epithel Cells (Auto) 4.0 /HPF (0-13.0) 10/01/16 05:50 Urine Bacteria (Auto) 3+ /HPF (Negative) 10/01/16 05:50 Urine WBC Clumps 3+ /HPF 10/01/16 05:50 Amorphous Crystals 1+ 10/01/16 05:50 Hyaline Casts 97 /LPF 10/01/16 05:50 Urine Mucus 1+ /HPF 10/01/16 05:50 Urine Osmolality 297 Mosm/kg 10/01/16 05:19 Urine Creatinine 123.1 mg/dL (0.1-20.0) H 10/01/16 05:19 Urine Sodium 36 mEq/L 10/01/16 05:19 Urine Total Protein 112 mg/dL (5-11.8) H 10/01/16 05:19 Hepatitis A IgM Ab -1 (NonReactive) 10/02/16 20:50 Hep Bs Antigen Non-reactive (Negative) 10/02/16 20:50 Hep B Core IgM Ab Non-reactive (NonReactive) 10/02/16 20:50 Hepatitis C Antibody Non-reactive (NonReactive) 10/02/16 20:50 Blood Type B POSITIVE 09/28/16 12:12 Antibody Screen Negative 09/28/16 12:12
[2016-10-05] MEDS: HEPARIN IV PRN (15:05)
[2016-10-05] MEDS: REMERON PO SCH (22:18)
[2016-10-06] MEDS: HEPARIN SUB-Q SCH ×3 (05:32→22:32)
[2016-10-06] MEDS: APRESOLINE IV PRN (05:56)
[2016-10-06 07:50] LABS: Albumin 2.3 g/dL (3.9-5); Albumin/Globulin Ratio 0.6 %; Anion Gap 18 mmol/L; BUN/Creatinine Ratio 8.64; Bilirubin,Total 0.3 mg/dL (0.1-1.2); Blood Urea Nitrogen 32 mg/dL (7-17); Calcium 7.8 mg/dL (8.4-10.2); Carbon Dioxide 23 mmol/L (22-30); Chloride 96.3 mmol/L (98-107); Glucose 97 mg/dL (65-100); Potassium 4.4 mmol/L (3.6-5.0); Sodium 133 mmol/L (137-145); Total Protein 6.2 g/dL (6.3-8.2)
[2016-10-06 07:52] LABS: Alanine Aminotransferase < 5 units/L (7-56)
[2016-10-06] MEDS: DUONEB 0.5 MG-3 MG/3 ML SOLN IH SCH ×3 (08:12→19:58)
--- NOTE | 2016-10-06 08:57 | XRay Report ---
ABDOMEN RADIOGRAPH: INDICATION: No stool in colostomy. COMPARISON: 09/29/2016 FINDINGS: Frontal supine abdominal radiograph again demonstrates nonobstructive bowel gas pattern, though with increased stool throughout the colon as also some along the rectosigmoid/possible constipation. No small bowel dilatation. No focal suspicious calcifications, pneumatosis or pneumoperitoneum. IVC filter projects about L3 level. Slight left basilar atelectasis or scarring. Possible right-sided central catheter tip in the right atrium, overlying the lower thoracic spine. EKG leads. Various bony degenerative changes, more so [id number] lumbar. CONCLUSION: 1. Increased stool throughout colon since 09/29/2016, as described. Please correlate. 2. Various other incidental findings, as above. Thank you for the opportunity to participate in this patient's care.
[2016-10-06 09:07] LABS: Alkaline Phosphatase 42 units/L (35-129)
[2016-10-06] MEDS: ROCALTROL PO SCH (10:15)
[2016-10-06] MEDS: PHOSLO PO SCH ×3 (10:15→21:32)
[2016-10-06] MEDS: PROTONIX PO SCH (10:15)
[2016-10-06] MEDS: NORMODYNE PO SCH ×2 (10:16→22:30)
[2016-10-06] MEDS: MUCINEX ER PO SCH ×2 (10:16→22:29)
[2016-10-06] MEDS: NORVASC PO SCH (10:16)
[2016-10-06] MEDS: ROCEPHIN/NS 1 GM/50 ML 50 ML IV SCH (10:16)
[2016-10-06] MEDS: ZITHROMAX 500 MG in NACL 0.9% 250ML 250 ML IV SCH (10:17)
--- NOTE | 2016-10-06 13:14 | Progress Note ---
Assessment and Plan - Patient Problems (1) Acute on chronic renal failure Current Visit: No Status: Acute Plan to address problem: acute kidney injury on advanced CKD possibly due to ATN in the setting of UTI/ pyelo. Progressive CKD also possible. continue intermittent HD on T/T/S while inpatient. Outpatient HD arranged at [facility] on , will arrange HD for tomorrwo AM and swtich to . Will monitor I/Os, electrolytes and renal parameters closely and assess for signs of renal recovery. (2) Acute bronchitis Current Visit: Yes Status: Acute Qualifiers: Bronchitis organism: other organism Qualified Code(s): J20.8 - Acute bronchitis due to other specified organisms Plan to address problem: continue ABX w/ ceftriaxon (3) CHF (congestive heart failure) Current Visit: Yes Status: Acute Qualifiers: Congestive heart failure type: unspecified congestive heart failure type Congestive heart failure chronicity: unspecified congestive heart failure chronicity Qualified Code(s): I50.9 - Heart failure, unspecified Plan to address problem: appears well compensated currently. (4) Anemia Current Visit: Yes Status: Acute Qualifiers: Anemia type: unspecified type Qualified Code(s): D64.9 - Anemia, unspecified Plan to address problem: anemia of CKD, will start epo [id number] tiw with HD. (5) HTN (hypertension) Current Visit: Yes Status: Acute Qualifiers: Hypertension type: essential hypertension Qualified Code(s): I10 - Essential (primary) hypertension Plan to address problem: BP improved on current regimen with amlodipine 10mg po qd and labetalol 200mg po bid. Will adjust UF as tolerated. (6) Elevated troponin Current Visit: Yes Status: Acute Plan to address problem: likely due to CKD, follow cardiology recs. (7) Metabolic acidemia Current Visit: Yes Status: Acute Plan to address problem: improved with HD. (8) Secondary hyperparathyroidism (of renal origin) Current Visit: Yes Status: Acute Plan to address problem: continue phoslo and calcitriol Subjective Date of service: 10/06/16 Interval history: patient awake, alert, in NAD Objective - Vital Signs Vital signs: Vital Signs - 12hr 10/06/16 10/06/16 10/06/16 05:06 07:30 08:13 Temperature 97.6 F 98.0 F Pulse Rate [ 74 Apical] Pulse Rate [ 89 Bilateral Throughout] Pulse Rate [ 70 Right Radial] Respiratory 19 20 Rate Respiratory 18 Rate [Bilateral Throughout] Blood Pressure 183/79 141/67 [Left Arm] O2 Sat by Pulse 97 100 95 Oximetry 10/06/16 10/06/16 08:20 12:00 Temperature 98.2 F Pulse Rate [ 77 Apical] Pulse Rate [ 84 Bilateral Throughout] Pulse Rate [ Right Radial] Respiratory 20 Rate Respiratory 18 Rate [Bilateral Throughout] Blood Pressure 135/62 [Left Arm] O2 Sat by Pulse 100 Oximetry - General Appearance General appearance: appears stated age, chronically ill, frail EENT: ATNC, PERRL, mucous membranes moist Neck: no JVD Respiratory: Present: Clear to Ascultation Cardiology: regular, S1S2 Gastrointestinal: normal, normoactive bowel sounds Integumentary: no rash, other (no edema ) Neurologic: no focal deficit, alert and oriented x3, strength 5/5, CN 3-12 intact Psychiatric: mood/affect appropriate, cooperative - Lab 10/02/16 07:06 10/06/16 06:41 Most recent lab results Calcium 7.8 mg/dL (8.4-10.2) L 10/06/16 06:41 Phosphorus 7.4 mg/dL (2.5-4.5) H 10/01/16 09:04 Urine Creatinine 123.1 mg/dL (0.1-20.0) H 10/01/16 05:19 Urine Sodium 36 mEq/L 10/01/16 05:19 Urine Total Protein 112 mg/dL (5-11.8) H 10/01/16 05:19
--- NOTE | 2016-10-06 14:03 | Progress Note ---
Assessment and Plan Assessment and plan: Acute on chronic kidney disease * Creatinine 3.7 today, improved after starting dialysis , nephrology following Acute COPD exacerbation. Continue solumedrol, Duoneb * Bronchodilators with nebulizer treatment. * Continue O2. Supportive care. Acute bronchitis. * continue on IV antibiotics. No infiltrates on chest x-ray. Chronic CHF, compensated. * 2-D echocardiogram showed EF 45-50% * Chest x-ray and clinical exam reveals no acute decompensation. Elevated troponin. * Etiology may be secondary to chronic renal insufficiency. Diabetes mellitus type 2. * Continue sliding scale and Accu-Cheks. History Interval history: Started on dialysis 10/03/16, No more shortness of breath, no chest pain Hospitalist Physical - Physical exam Narrative exam: Gen: Not in acute distress HEENT: Normocephalic, atraumatic Neck :supple, no JVD Lungs: Clear to auscultation bilat, no wheeze Heart S1 and S2 regular, no murmurs, no rubs, no gallop Abdomen:soft, nontender, nondistended, normal bowel sounds Ext: no edema, no clubbing or cyanosis Neuro: Awake alert oriented, no focal sugns - Constitutional Vitals: Temp Pulse Resp BP Pulse Ox 98.2 F 86 18 135/62 100 10/06/16 12:00 10/06/16 13:54 10/06/16 13:54 10/06/16 12:00 10/06/16 12:00 General appearance: Present: no acute distress, well-nourished Results - Labs CBC & Chem 7: 10/02/16 07:06 10/07/16 08:01 Labs: Laboratory Last Values WBC 13.6 K/mm3 (4.5-11.0) H 10/02/16 07:06 RBC 3.51 M/mm3 (3.65-5.03) L 10/02/16 07:06 Hgb 8.8 gm/dl (10.1-14.3) L 10/02/16 07:06 Hct 28.4 % (30.3-42.9) L 10/02/16 07:06 MCV 81 fl (79-97) 10/02/16 07:06 MCH 25 pg (28-32) L 10/02/16 07:06 MCHC 31 % (30-34) 10/02/16 07:06 RDW 16.5 % (13.2-15.2) H 10/02/16 07:06 Plt Count 295 K/mm3 (140-440) 10/02/16 07:06 Lymph % (Auto) Grain [employer]er 10/02/16 07:06 [place] % (Auto) Grain Buyer 10/02/16 07:06 Eos % (Auto) Grain Buyer 10/02/16 07:06 Baso % (Auto) Grain Buyer 10/02/16 07:06 Lymph # Grain Buyer 10/02/16 07:06 [place] # Grain Buyer 10/02/16 07:06 Eos # Grain Buyer 10/02/16 07:06 Baso # Grain Buyer 10/02/16 07:06 Add Manual Diff Complete 10/02/16 07:06 Total Counted 100 10/02/16 07:06 Seg Neutrophils % Grain Buyer 10/02/16 07:06 Seg Neuts % (Manual) 79.0 % (40.0-70.0) H 10/02/16 07:06 Band Neutrophils % 9.0 % 10/02/16 07:06 Lymphocytes % (Manual) 11.0 % (13.4-35.0) L 10/02/16 07:06 Reactive Lymphs % (Man) 0 % 10/02/16 07:06 Monocytes % (Manual) 1.0 % (0.0-7.3) 10/02/16 07:06 Eosinophils % (Manual) 0 % (0.0-4.3) 10/02/16 07:06 Basophils % (Manual) 0 % (0.0-1.8) 10/02/16 07:06 Metamyelocytes % 0 % 10/02/16 07:06 Myelocytes % 0 % 10/02/16 07:06 Promyelocytes % 0 % 10/02/16 07:06 Blast Cells % 0 % 10/02/16 07:06 Nucleated RBC % Not Reportable 10/02/16 07:06 Seg Neutrophils # Grain Buyer 10/02/16 07:06 Seg Neutrophils # Man 10.7 K/mm3 (1.8-7.7) H 10/02/16 07:06 Band Neutrophils # 1.2 K/mm3 10/02/16 07:06 Lymphocytes # (Manual) 1.5 K/mm3 (1.2-5.4) 10/02/16 07:06 Abs React Lymphs (Man) 0.0 K/mm3 10/02/16 07:06 Monocytes # (Manual) 0.1 K/mm3 (0.0-0.8) 10/02/16 07:06 Eosinophils # (Manual) 0.0 K/mm3 (0.0-0.4) 10/02/16 07:06 Basophils # (Manual) 0.0 K/mm3 (0.0-0.1) 10/02/16 07:06 Metamyelocytes # 0.0 K/mm3 10/02/16 07:06 Myelocytes # 0.0 K/mm3 10/02/16 07:06 Promyelocytes # 0.0 K/mm3 10/02/16 07:06 Blast Cells # 0.0 K/mm3 10/02/16 07:06 WBC Morphology Not Reportable 10/02/16 07:06 Hypersegmented Neuts Not Reportable 10/02/16 07:06 Hyposegmented Neuts Not Reportable 10/02/16 07:06 Hypogranular Neuts Not Reportable 10/02/16 07:06 Smudge Cells Not Reportable 10/02/16 07:06 Toxic Granulation Not Reportable 10/02/16 07:06 Toxic Vacuolation Not Reportable 10/02/16 07:06 Dohle Bodies Not Reportable 10/02/16 07:06 Pelger-Huet Anomaly Not Reportable 10/02/16 07:06 Aida Rods Not Reportable 10/02/16 07:06 Platelet Estimate Not Reportable 10/02/16 07:06 Clumped Platelets Not Reportable 10/02/16 07:06 Plt Clumps, EDTA Not Reportable 10/02/16 07:06 Large Platelets Not Reportable 10/02/16 07:06 Giant Platelets Not Reportable 10/02/16 07:06 Platelet Satelliting Not Reportable 10/02/16 07:06 Plt Morphology Comment Not Reportable 10/02/16 07:06 RBC Morphology Not Reportable 10/02/16 07:06 Dimorphic RBCs Not Reportable 10/02/16 07:06 Polychromasia Rare 10/02/16 07:06 Hypochromasia Not Reportable 10/02/16 07:06 Poikilocytosis 1+ 10/02/16 07:06 Anisocytosis 1+ 10/02/16 07:06 Microcytosis Not Reportable 10/02/16 07:06 Macrocytosis Not Reportable 10/02/16 07:06 Spherocytes Rare 10/02/16 07:06 Pappenheimer Bodies Not Reportable 10/02/16 07:06 Sickle Cells Not Reportable 10/02/16 07:06 Target Cells Not Reportable 10/02/16 07:06 Tear Drop Cells Not Reportable 10/02/16 07:06 Ovalocytes Not Reportable 10/02/16 07:06 Stomatocytes Rare 09/28/16 08:23 Helmet Cells Not Reportable 10/02/16 07:06 [place] Bodies Not Reportable 10/02/16 07:06 [place] Rings Not Reportable 10/02/16 07:06 [place] Cells Not Reportable 10/02/16 07:06 Bite Cells Not Reportable 10/02/16 07:06 Crenated Cell Not Reportable 10/02/16 07:06 Elliptocytes Not Reportable 10/02/16 07:06 Acanthocytes (Spur) Not Reportable 10/02/16 07:06 Rouleaux Not Reportable 10/02/16 07:06 Hemoglobin C Crystals Not Reportable 10/02/16 07:06 Schistocytes Not Reportable 10/02/16 07:06 Malaria parasites Not Reportable 10/02/16 07:06 Jalil Bodies Not Reportable 10/02/16 07:06 Hem Pathologist Commnt No 10/02/16 07:06 Sodium 133 mmol/L (137-145) L 10/06/16 06:41 Potassium 4.4 mmol/L (3.6-5.0) 10/06/16 06:41 Chloride 96.3 mmol/L (98-107) L 10/06/16 06:41 Carbon Dioxide 23 mmol/L (22-30) 10/06/16 06:41 Anion Gap 18 mmol/L 10/06/16 06:41 BUN 32 mg/dL (7-17) H 10/06/16 06:41 Creatinine 3.7 mg/dL (0.7-1.2) H 10/06/16 06:41 Estimated GFR 14 ml/min 10/06/16 06:41 BUN/Creatinine Ratio 8.64 % 10/06/16 06:41 Glucose 97 mg/dL (65-100) 10/06/16 06:41 POC Glucose 237 (70-105) H 10/05/16 20:51 Hemoglobin A1c 5.3 % (4-6) 09/28/16 08:23 Calcium 7.8 mg/dL (8.4-10.2) L 10/06/16 06:41 Phosphorus 7.4 mg/dL (2.5-4.5) H 10/01/16 09:04 Iron 21 ug/dL (37-170) L 10/01/16 09:04 TIBC 269 mcg/dL (250-450) 10/01/16 09:04 Ferritin 82.1 ng/mL (13.0-400.0) 10/01/16 09:05 Total Bilirubin 0.3 mg/dL (0.1-1.2) 10/06/16 06:41 AST 9 units/L (5-40) 10/06/16 06:41 ALT < 5 units/L (7-56) L 10/06/16 06:41 Alkaline Phosphatase 42 units/L (35-129) 10/06/16 06:41 Total Creatine Kinase 66 units/L (30-135) 09/28/16 16:38 CK-MB (CK-2) 3.4 ng/mL (0.0-4.0) 09/28/16 16:38 CK-MB (CK-2) Rel Index 5.1 (0-4) H 09/28/16 16:38 Troponin T 0.275 ng/mL (0.00-0.029) H* 09/28/16 16:38 Total Protein 6.2 g/dL (6.3-8.2) L 10/06/16 06:41 Albumin 2.3 g/dL (3.9-5) L 10/06/16 06:41 Albumin/Globulin Ratio 0.6 % 10/06/16 06:41 Triglycerides 89 mg/dL (2-149) 09/28/16 08:23 Cholesterol 151 mg/dL (50-199) 09/28/16 08:23 LDL Cholesterol Direct 69 mg/dL (50-130) 09/28/16 08:23 HDL Cholesterol 65 mg/dL (40-59) H 09/28/16 08:23 Cholesterol/HDL Ratio 2.32 % 09/28/16 08:23 PTH Intact 506.6 pg/mL (15-65) H 10/01/16 08:59 Urine Color [place] (Yellow) 10/01/16 05:50 Urine Turbidity Turbid (Clear) 10/01/16 05:50 Urine pH 5.0 (5.0-7.0) 10/01/16 05:50 Ur Specific [place] 1.012 (1.003-1.030) 10/01/16 05:50 Urine Protein 30 mg/dl mg/dL (Negative) 10/01/16 05:50 Urine Glucose (UA) 50 mg/dL (Negative) 10/01/16 05:50 Urine Ketones Neg mg/dL (Negative) 10/01/16 05:50 Urine Blood Sm (Negative) 10/01/16 05:50 Urine Nitrite Neg (Negative) 10/01/16 05:50 Urine Bilirubin Neg (Negative) 10/01/16 05:50 Urine Urobilinogen < 2.0 mg/dL (<2.0) 10/01/16 05:50 Ur Leukocyte Esterase Lg (Negative) 10/01/16 05:50 Urine WBC (Auto) > 182.0 /HPF (0.0-6.0) H 10/01/16 05:50 Urine RBC (Auto) 46.0 /HPF (0.0-6.0) 10/01/16 05:50 U Epithel Cells (Auto) 4.0 /HPF (0-13.0) 10/01/16 05:50 Urine Bacteria (Auto) 3+ /HPF (Negative) 10/01/16 05:50 Urine WBC Clumps 3+ /HPF 10/01/16 05:50 Amorphous Crystals 1+ 10/01/16 05:50 Hyaline Casts 97 /LPF 10/01/16 05:50 Urine Mucus 1+ /HPF 10/01/16 05:50 Urine Osmolality 297 Mosm/kg 10/01/16 05:19 Urine Creatinine 123.1 mg/dL (0.1-20.0) H 10/01/16 05:19 Urine Sodium 36 mEq/L 10/01/16 05:19 Urine Total Protein 112 mg/dL (5-11.8) H 10/01/16 05:19 Hepatitis A IgM Ab -1 (NonReactive) 01/02/17 20:50 Hep Bs Antigen Non-reactive (Negative) 10/02/16 20:50 Hep B Core IgM Ab Non-reactive (NonReactive) 10/02/16 20:50 Hepatitis C Antibody Non-reactive (NonReactive) 10/02/16 20:50 Blood Type B POSITIVE 09/28/16 12:12 Antibody Screen Negative 09/28/16 12:12
[2016-10-06] MEDS: REMERON PO SCH (22:30)
[2016-10-06] MEDS: LEVEMIR SUB-Q SCH (23:45)
[2016-10-07] MEDS: HEPARIN SUB-Q SCH ×3 (05:17→22:01)
[2016-10-07] MEDS: PHOSLO PO SCH ×3 (08:58→22:00)
[2016-10-07 09:09] LABS: BUN/Creatinine Ratio 9.16; Calcium 7.9 mg/dL (8.4-10.2); Chloride 96.9 mmol/L (98-107); Potassium 4.3 mmol/L (3.6-5.0)
[2016-10-07] MEDS: DUONEB 0.5 MG-3 MG/3 ML SOLN IH SCH ×3 (09:44→20:09)
[2016-10-07] MEDS: ROCALTROL PO SCH (09:55)
[2016-10-07] MEDS: NORVASC PO SCH (09:55)
[2016-10-07] MEDS: MUCINEX ER PO SCH ×2 (09:55→22:08)
[2016-10-07] MEDS: PROTONIX PO SCH (09:56)
[2016-10-07] MEDS: ROCEPHIN/NS 1 GM/50 ML 50 ML IV SCH (09:58)
[2016-10-07] MEDS: ZITHROMAX 500 MG in NACL 0.9% 250ML 250 ML IV SCH (09:58)
[2016-10-07] MEDS: NORMODYNE PO SCH ×2 (10:03→21:58)
[2016-10-07] MEDS: HEPARIN IV PRN (13:17)
--- NOTE | 2016-10-07 16:53 | Progress Note ---
Assessment and Plan Assessment and plan: Acute on chronic kidney disease * She has been started on hemodialysis. Creatinine 4.8 today. nephrology following Acute COPD exacerbation. Continue solumedrol, Duoneb * Bronchodilators with nebulizer treatment. * Continue O2. Supportive care. Acute bronchitis. * continue on IV antibiotics. No infiltrates on chest x-ray. Chronic CHF, compensated. * 2-D echocardiogram showed EF 45-50% * Chest x-ray and clinical exam reveals no acute decompensation. Elevated troponin. * Etiology may be secondary to chronic renal insufficiency. Diabetes mellitus type 2. * Continue sliding scale and Accu-Cheks. * Case management working on placement. History Interval history: Started on dialysis 10/03/16, No more shortness of breath, no chest pain Hospitalist Physical - Physical exam Narrative exam: Gen: Not in acute distress HEENT: Normocephalic, atraumatic Neck :supple, no JVD Lungs: Clear to auscultation bilat, no wheeze Heart S1 and S2 regular, no murmurs, no rubs, no gallop Abdomen:soft, nontender, nondistended, normal bowel sounds Ext: no edema, no clubbing or cyanosis Neuro: Awake alert oriented, no focal sugns - Constitutional Vitals: Temp Pulse Resp BP Pulse Ox 98.2 F 70 20 166/78 100 10/07/16 13:30 10/07/16 14:31 10/07/16 13:30 10/07/16 14:31 10/07/16 09:50 General appearance: Present: no acute distress, well-nourished Results - Labs CBC & Chem 7: 10/02/16 07:06 10/07/16 08:01 Labs: Laboratory Last Values WBC 13.6 K/mm3 (4.5-11.0) H 10/02/16 07:06 RBC 3.51 M/mm3 (3.65-5.03) L 10/02/16 07:06 Hgb 8.8 gm/dl (10.1-14.3) L 10/02/16 07:06 Hct 28.4 % (30.3-42.9) L 10/02/16 07:06 MCV 81 fl (79-97) 10/02/16 07:06 MCH 25 pg (28-32) L 10/02/16 07:06 MCHC 31 % (30-34) 10/02/16 07:06 RDW 16.5 % (13.2-15.2) H 10/02/16 07:06 Plt Count 295 K/mm3 (140-440) 10/02/16 07:06 Lymph % (Auto) Arterial Embalmer 10/02/16 07:06 [place] % (Auto) Arterial Embalmer 10/02/16 07:06 Eos % (Auto) Arterial Embalmer 10/02/16 07:06 Baso % (Auto) Arterial Embalmer 10/02/16 07:06 Lymph # Arterial Embalmer 10/02/16 07:06 [place] # Arterial Embalmer 10/02/16 07:06 Eos # Arterial Embalmer 10/02/16 07:06 Baso # Arterial Embalmer 10/02/16 07:06 Add Manual Diff Complete 10/02/16 07:06 Total Counted 100 10/02/16 07:06 Seg Neutrophils % Arterial Embalmer 10/02/16 07:06 Seg Neuts % (Manual) 79.0 % (40.0-70.0) H 10/02/16 07:06 Band Neutrophils % 9.0 % 10/02/16 07:06 Lymphocytes % (Manual) 11.0 % (13.4-35.0) L 10/02/16 07:06 Reactive Lymphs % (Man) 0 % 10/02/16 07:06 Monocytes % (Manual) 1.0 % (0.0-7.3) 10/02/16 07:06 Eosinophils % (Manual) 0 % (0.0-4.3) 10/02/16 07:06 Basophils % (Manual) 0 % (0.0-1.8) 10/02/16 07:06 Metamyelocytes % 0 % 10/02/16 07:06 Myelocytes % 0 % 10/02/16 07:06 Promyelocytes % 0 % 10/02/16 07:06 Blast Cells % 0 % 10/02/16 07:06 Nucleated RBC % Not Reportable 10/02/16 07:06 Seg Neutrophils # Arterial Embalmer 10/02/16 07:06 Seg Neutrophils # Man 10.7 K/mm3 (1.8-7.7) H 10/02/16 07:06 Band Neutrophils # 1.2 K/mm3 10/02/16 07:06 Lymphocytes # (Manual) 1.5 K/mm3 (1.2-5.4) 10/02/16 07:06 Abs React Lymphs (Man) 0.0 K/mm3 10/02/16 07:06 Monocytes # (Manual) 0.1 K/mm3 (0.0-0.8) 10/02/16 07:06 Eosinophils # (Manual) 0.0 K/mm3 (0.0-0.4) 10/02/16 07:06 Basophils # (Manual) 0.0 K/mm3 (0.0-0.1) 10/02/16 07:06 Metamyelocytes # 0.0 K/mm3 10/02/16 07:06 Myelocytes # 0.0 K/mm3 10/02/16 07:06 Promyelocytes # 0.0 K/mm3 10/02/16 07:06 Blast Cells # 0.0 K/mm3 10/02/16 07:06 WBC Morphology Not Reportable 10/02/16 07:06 Hypersegmented Neuts Not Reportable 10/02/16 07:06 Hyposegmented Neuts Not Reportable 10/02/16 07:06 Hypogranular Neuts Not Reportable 10/02/16 07:06 Smudge Cells Not Reportable 10/02/16 07:06 Toxic Granulation Not Reportable 10/02/16 07:06 Toxic Vacuolation Not Reportable 10/02/16 07:06 Dohle Bodies Not Reportable 10/02/16 07:06 Pelger-Huet Anomaly Not Reportable 10/02/16 07:06 Aida Rods Not Reportable 10/02/16 07:06 Platelet Estimate Not Reportable 10/02/16 07:06 Clumped Platelets Not Reportable 10/02/16 07:06 Plt Clumps, EDTA Not Reportable 10/02/16 07:06 Large Platelets Not Reportable 10/02/16 07:06 Giant Platelets Not Reportable 10/02/16 07:06 Platelet Satelliting Not Reportable 10/02/16 07:06 Plt Morphology Comment Not Reportable 10/02/16 07:06 RBC Morphology Not Reportable 10/02/16 07:06 Dimorphic RBCs Not Reportable 10/02/16 07:06 Polychromasia Rare 10/02/16 07:06 Hypochromasia Not Reportable 10/02/16 07:06 Poikilocytosis 1+ 10/02/16 07:06 Anisocytosis 1+ 10/02/16 07:06 Microcytosis Not Reportable 10/02/16 07:06 Macrocytosis Not Reportable 10/02/16 07:06 Spherocytes Rare 10/02/16 07:06 Pappenheimer Bodies Not Reportable 10/02/16 07:06 Sickle Cells Not Reportable 10/02/16 07:06 Target Cells Not Reportable 10/02/16 07:06 Tear Drop Cells Not Reportable 10/02/16 07:06 Ovalocytes Not Reportable 10/02/16 07:06 Stomatocytes Rare 09/28/16 08:23 Helmet Cells Not Reportable 10/02/16 07:06 [place] Bodies Not Reportable 10/02/16 07:06 [place] Rings Not Reportable 10/02/16 07:06 [place] Cells Not Reportable 10/02/16 07:06 Bite Cells Not Reportable 10/02/16 07:06 Crenated Cell Not Reportable 10/02/16 07:06 Elliptocytes Not Reportable 10/02/16 07:06 Acanthocytes (Spur) Not Reportable 10/02/16 07:06 Rouleaux Not Reportable 10/02/16 07:06 Hemoglobin C Crystals Not Reportable 10/02/16 07:06 Schistocytes Not Reportable 10/02/16 07:06 Malaria parasites Not Reportable 10/02/16 07:06 Jalil Bodies Not Reportable 10/02/16 07:06 Hem Pathologist Commnt No 10/02/16 07:06 Sodium 134 mmol/L (137-145) L 10/07/16 08:01 Potassium 4.3 mmol/L (3.6-5.0) 10/07/16 08:01 Chloride 96.9 mmol/L (98-107) L 10/07/16 08:01 Carbon Dioxide 27 mmol/L (22-30) 10/07/16 08:01 Anion Gap 14 mmol/L 10/07/16 08:01 BUN 44 mg/dL (7-17) H 10/07/16 08:01 Creatinine 4.8 mg/dL (0.7-1.2) H 10/07/16 08:01 Estimated GFR 10 ml/min 10/07/16 08:01 BUN/Creatinine Ratio 9.16 % 10/07/16 08:01 Glucose 113 mg/dL (65-100) H 10/07/16 08:01 POC Glucose 111 (70-105) H 10/07/16 09:07 Hemoglobin A1c 5.3 % (4-6) 09/28/16 08:23 Calcium 7.9 mg/dL (8.4-10.2) L 10/07/16 08:01 Phosphorus 7.4 mg/dL (2.5-4.5) H 10/01/16 09:04 Iron 21 ug/dL (37-170) L 10/01/16 09:04 TIBC 269 mcg/dL (250-450) 10/01/16 09:04 Ferritin 82.1 ng/mL (13.0-400.0) 10/01/16 09:05 Total Bilirubin 0.3 mg/dL (0.1-1.2) 10/06/16 06:41 AST 9 units/L (5-40) 10/06/16 06:41 ALT < 5 units/L (7-56) L 10/06/16 06:41 Alkaline Phosphatase 42 units/L (35-129) 10/06/16 06:41 Total Creatine Kinase 66 units/L (30-135) 09/28/16 16:38 CK-MB (CK-2) 3.4 ng/mL (0.0-4.0) 09/28/16 16:38 CK-MB (CK-2) Rel Index 5.1 (0-4) H 09/28/16 16:38 Troponin T 0.275 ng/mL (0.00-0.029) H* 09/28/16 16:38 Total Protein 6.2 g/dL (6.3-8.2) L 10/06/16 06:41 Albumin 2.3 g/dL (3.9-5) L 10/06/16 06:41 Albumin/Globulin Ratio 0.6 % 10/06/16 06:41 Triglycerides 89 mg/dL (2-149) 09/28/16 08:23 Cholesterol 151 mg/dL (50-199) 09/28/16 08:23 LDL Cholesterol Direct 69 mg/dL (50-130) 09/28/16 08:23 HDL Cholesterol 65 mg/dL (40-59) H 09/28/16 08:23 Cholesterol/HDL Ratio 2.32 % 09/28/16 08:23 PTH Intact 506.6 pg/mL (15-65) H 10/01/16 08:59 Urine Color [place] (Yellow) 10/01/16 05:50 Urine Turbidity Turbid (Clear) 10/01/16 05:50 Urine pH 5.0 (5.0-7.0) 10/01/16 05:50 Ur Specific [place] 1.012 (1.003-1.030) 10/01/16 05:50 Urine Protein 30 mg/dl mg/dL (Negative) 10/01/16 05:50 Urine Glucose (UA) 50 mg/dL (Negative) 10/01/16 05:50 Urine Ketones Neg mg/dL (Negative) 10/01/16 05:50 Urine Blood Sm (Negative) 10/01/16 05:50 Urine Nitrite Neg (Negative) 10/01/16 05:50 Urine Bilirubin Neg (Negative) 10/01/16 05:50 Urine Urobilinogen < 2.0 mg/dL (<2.0) 10/01/16 05:50 Ur Leukocyte Esterase Lg (Negative) 10/01/16 05:50 Urine WBC (Auto) > 182.0 /HPF (0.0-6.0) H 10/01/16 05:50 Urine RBC (Auto) 46.0 /HPF (0.0-6.0) 10/01/16 05:50 U Epithel Cells (Auto) 4.0 /HPF (0-13.0) 10/01/16 05:50 Urine Bacteria (Auto) 3+ /HPF (Negative) 10/01/16 05:50 Urine WBC Clumps 3+ /HPF 10/01/16 05:50 Amorphous Crystals 1+ 10/01/16 05:50 Hyaline Casts 97 /LPF 10/01/16 05:50 Urine Mucus 1+ /HPF 10/01/16 05:50 Urine Osmolality 297 Mosm/kg 10/01/16 05:19 Urine Creatinine 123.1 mg/dL (0.1-20.0) H 10/01/16 05:19 Urine Sodium 36 mEq/L 10/01/16 05:19 Urine Total Protein 112 mg/dL (5-11.8) H 10/01/16 05:19 Hepatitis A IgM Ab -1 (NonReactive) 10/02/16 20:50 Hep Bs Antigen Non-reactive (Negative) 10/02/16 20:50 Hep B Core IgM Ab Non-reactive (NonReactive) 10/02/16 20:50 Hepatitis C Antibody Non-reactive (NonReactive) 10/02/16 20:50 Blood Type B POSITIVE 09/28/16 12:12 Antibody Screen Negative 09/28/16 12:12
--- NOTE | 2016-10-07 18:11 | Progress Note ---
Assessment and Plan (1) Acute on chronic renal failure Current Visit: No Status: Acute Plan to address problem: Acute kidney injury on advanced CKD possibly due to ATN in the setting of UTI/ pyelo. Progressive CKD also possible. HD today and will switch to MWF. Outpatient HD arranged at [facility] on /. Will monitor I/Os, electrolytes and renal parameters closely and assess for signs of renal recovery. (2) Acute bronchitis Current Visit: Yes Status: Acute Qualifiers: Bronchitis organism: other organism Qualified Code(s): J20.8 - Acute bronchitis due to other specified organisms Plan to address problem: Antibiotics (3) CHF (congestive heart failure) Current Visit: Yes Status: Acute Qualifiers: Congestive heart failure type: unspecified congestive heart failure type Congestive heart failure chronicity: unspecified congestive heart failure chronicity Qualified Code(s): I50.9 - Heart failure, unspecified Plan to address problem: Improved. (4) Anemia Current Visit: Yes Status: Acute Qualifiers: Anemia type: unspecified type Qualified Code(s): D64.9 - Anemia, unspecified Plan to address problem: Continue ADAM on dialysis (5) HTN (hypertension) Current Visit: Yes Status: Acute Qualifiers: Hypertension type: essential hypertension Qualified Code(s): I10 - Essential (primary) hypertension Plan to address problem: BP stable with present regimen (6) Secondary hyperparathyroidism (of renal origin) Current Visit: Yes Status: Acute Plan to address problem: continue phoslo and calcitriol Subjective Date of service: 10/07/16 Interval history: No new events. Chart reviewed. Objective - Exam Narrative Exam: General appearance: appears stated age, chronically ill, frail EENT: ATNC, PERRL, mucous membranes moist Neck: no JVD, no lymphadenoapthy, trachea midline Respiratory: Present: Clear to Ascultation Cardiology: regular, S1S2 Gastrointestinal: normal, normoactive bowel sounds Integumentary: no rash, ulcers Neurologic: no focal deficit, alert and oriented x3, strength 5/5, CN 3-12 intact Psychiatric: mood/affect appropriate, cooperative - Vital Signs Vital signs: Vital Signs - 12hr 10/07/16 10/07/16 10/07/16 08:18 09:00 09:44 Temperature 98.2 F Pulse Rate Pulse Rate [ 80 Anterior Bilateral Throughout] Pulse Rate [ 80 Anterior Left Upper Lobe] Pulse Rate [ 80 Bilateral Throughout] Pulse Rate [ 80 Posterior Bilateral Throughout] Pulse Rate [ 73 Right Dorsalis Pedis] Respiratory 18 Rate Respiratory 18 Rate [Anterior Bilateral Throughout] Respiratory 18 Rate [Anterior Left Upper Lobe ] Respiratory 18 Rate [Bilateral Throughout] Respiratory 18 Rate [Posterior Bilateral Throughout] Blood Pressure Blood Pressure 138/65 [Left Arm] O2 Sat by Pulse 94 2 L Oximetry 10/07/16 10/07/16 10/07/16 09:50 09:55 09:59 Temperature Pulse Rate 75 Pulse Rate [ 84 Anterior Bilateral Throughout] Pulse Rate [ Anterior Left Upper Lobe] Pulse Rate [ Bilateral Throughout] Pulse Rate [ Posterior Bilateral Throughout] Pulse Rate [ Right Dorsalis Pedis] Respiratory Rate Respiratory 18 Rate [Anterior Bilateral Throughout] Respiratory Rate [Anterior Left Upper Lobe ] Respiratory Rate [Bilateral Throughout] Respiratory Rate [Posterior Bilateral Throughout] Blood Pressure 138/65 Blood Pressure [Left Arm] O2 Sat by Pulse 100 Oximetry 10/07/16 10/07/16 10/07/16 10:00 10:03 11:15 Temperature Pulse Rate 69 75 74 Pulse Rate [ Anterior Bilateral Throughout] Pulse Rate [ Anterior Left Upper Lobe] Pulse Rate [ Bilateral Throughout] Pulse Rate [ Posterior Bilateral Throughout] Pulse Rate [ Right Dorsalis Pedis] Respiratory Rate Respiratory Rate [Anterior Bilateral Throughout] Respiratory Rate [Anterior Left Upper Lobe ] Respiratory Rate [Bilateral Throughout] Respiratory Rate [Posterior Bilateral Throughout] Blood Pressure 138/65 138/76 Blood Pressure [Left Arm] O2 Sat by Pulse Oximetry 10/07/16 10/07/16 10/07/16 11:29 11:30 11:45 Temperature 98.2 F Pulse Rate 78 74 71 Pulse Rate [ Anterior Bilateral Throughout] Pulse Rate [ Anterior Left Upper Lobe] Pulse Rate [ Bilateral Throughout] Pulse Rate [ Posterior Bilateral Throughout] Pulse Rate [ Right Dorsalis Pedis] Respiratory 22 Rate Respiratory Rate [Anterior Bilateral Throughout] Respiratory Rate [Anterior Left Upper Lobe ] Respiratory Rate [Bilateral Throughout] Respiratory Rate [Posterior Bilateral Throughout] Blood Pressure 146/74 128/72 126/66 Blood Pressure [Left Arm] O2 Sat by Pulse Oximetry 10/07/16 10/07/16 10/07/16 12:00 12:15 12:30 Temperature Pulse Rate 70 68 72 Pulse Rate [ Anterior Bilateral Throughout] Pulse Rate [ Anterior Left Upper Lobe] Pulse Rate [ Bilateral Throughout] Pulse Rate [ Posterior Bilateral Throughout] Pulse Rate [ Right Dorsalis Pedis] Respiratory Rate Respiratory Rate [Anterior Bilateral Throughout] Respiratory Rate [Anterior Left Upper Lobe ] Respiratory Rate [Bilateral Throughout] Respiratory Rate [Posterior Bilateral Throughout] Blood Pressure 138/70 148/74 154/76 Blood Pressure [Left Arm] O2 Sat by Pulse Oximetry 10/07/16 10/07/16 10/07/16 12:45 13:04 13:30 Temperature 98.2 F Pulse Rate 66 66 70 Pulse Rate [ Anterior Bilateral Throughout] Pulse Rate [ Anterior Left Upper Lobe] Pulse Rate [ Bilateral Throughout] Pulse Rate [ Posterior Bilateral Throughout] Pulse Rate [ Right Dorsalis Pedis] Respiratory 20 Rate Respiratory Rate [Anterior Bilateral Throughout] Respiratory Rate [Anterior Left Upper Lobe ] Respiratory Rate [Bilateral Throughout] Respiratory Rate [Posterior Bilateral Throughout] Blood Pressure 156/80 140/78 140/74 Blood Pressure [Left Arm] O2 Sat by Pulse Oximetry 10/07/16 10/07/16 10/07/16 13:45 14:00 14:15 Temperature Pulse Rate 66 70 66 Pulse Rate [ Anterior Bilateral Throughout] Pulse Rate [ Anterior Left Upper Lobe] Pulse Rate [ Bilateral Throughout] Pulse Rate [ Posterior Bilateral Throughout] Pulse Rate [ Right Dorsalis Pedis] Respiratory Rate Respiratory Rate [Anterior Bilateral Throughout] Respiratory Rate [Anterior Left Upper Lobe ] Respiratory Rate [Bilateral Throughout] Respiratory Rate [Posterior Bilateral Throughout] Blood Pressure 142/74 130/72 146/74 Blood Pressure [Left Arm] O2 Sat by Pulse Oximetry 10/07/16 14:31 Temperature Pulse Rate 70 Pulse Rate [ Anterior Bilateral Throughout] Pulse Rate [ Anterior Left Upper Lobe] Pulse Rate [ Bilateral Throughout] Pulse Rate [ Posterior Bilateral Throughout] Pulse Rate [ Right Dorsalis Pedis] Respiratory Rate Respiratory Rate [Anterior Bilateral Throughout] Respiratory Rate [Anterior Left Upper Lobe ] Respiratory Rate [Bilateral Throughout] Respiratory Rate [Posterior Bilateral Throughout] Blood Pressure 166/78 Blood Pressure [Left Arm] O2 Sat by Pulse Oximetry - Lab 10/02/16 07:06 10/07/16 08:01 Most recent lab results Calcium 7.9 mg/dL (8.4-10.2) L 10/07/16 08:01 Phosphorus 7.4 mg/dL (2.5-4.5) H 10/01/16 09:04 Urine Creatinine 123.1 mg/dL (0.1-20.0) H 10/01/16 05:19 Urine Sodium 36 mEq/L 10/01/16 05:19 Urine Total Protein 112 mg/dL (5-11.8) H 10/01/16 05:19
[2016-10-07] MEDS: REMERON PO SCH (21:59)
[2016-10-07] MEDS: LEVEMIR SUB-Q SCH (22:01)
[2016-10-08] MEDS: HEPARIN SUB-Q SCH ×3 (05:39→21:45)
[2016-10-08] MEDS: PHOSLO PO SCH ×3 (09:19→21:47)
[2016-10-08] MEDS: PROTONIX PO SCH (09:20)
[2016-10-08] MEDS: ROCALTROL PO SCH (09:20)
[2016-10-08] MEDS: NORMODYNE PO SCH ×2 (09:20→21:47)
[2016-10-08] MEDS: NORVASC PO SCH (09:20)
[2016-10-08] MEDS: MUCINEX ER PO SCH ×2 (09:20→21:47)
[2016-10-08] MEDS: ROCEPHIN/NS 1 GM/50 ML 50 ML IV SCH (09:21)
[2016-10-08] MEDS: DUONEB 0.5 MG-3 MG/3 ML SOLN IH SCH ×3 (09:25→21:02)
[2016-10-08] MEDS: ZITHROMAX 500 MG in NACL 0.9% 250ML 250 ML IV SCH (11:38)
--- NOTE | 2016-10-08 12:47 | Progress Note ---
[id number] Creatinine 4.8 , yesterday. Nephrology following Acute COPD exacerbation. Continue solumedrol, Duoneb * Bronchodilators with nebulizer treatment. * Continue O2. Supportive care. Acute bronchitis. * continue on IV antibiotics. No infiltrates on chest x-ray. Chronic CHF, compensated. * 2-D echocardiogram showed EF 45-50% * Chest x-ray and clinical exam reveals no acute decompensation. Elevated troponin. * Secondary to chronic renal insufficiency. No ardiac complaints. Diabetes mellitus type 2. * Continue sliding scale and Accu-Cheks. * Case management working on hemodialysis placement. History Interval history: Started on dialysis 10/03/16, No more shortness of breath, no chest pain Hospitalist Physical - Physical exam Narrative exam: Gen: Not in acute distress HEENT: Normocephalic, atraumatic Neck :supple, no JVD Lungs: Clear to auscultation bilat, no wheeze Heart S1 and S2 regular, no murmurs, no rubs, no gallop Abdomen:soft, nontender, nondistended, normal bowel sounds Ext: no edema, no clubbing or cyanosis Neuro: Awake alert oriented, no focal sugns - Constitutional Vitals: Temp Pulse Resp BP Pulse Ox 98.2 F 79 18 143/72 100 10/08/16 08:01 10/08/16 09:40 10/08/16 09:40 10/08/16 08:01 10/08/16 08:01 General appearance: Present: no acute distress, well-nourished Results - Labs CBC & Chem 7: 10/02/16 07:06 10/07/16 08:01 Labs: Laboratory Last Values WBC 13.6 K/mm3 (4.5-11.0) H 10/02/16 07:06 RBC 3.51 M/mm3 (3.65-5.03) L 10/02/16 07:06 Hgb 8.8 gm/dl (10.1-14.3) L 10/02/16 07:06 Hct 28.4 % (30.3-42.9) L 10/02/16 07:06 MCV 81 fl (79-97) 10/02/16 07:06 MCH 25 pg (28-32) L 10/02/16 07:06 MCHC 31 % (30-34) 10/02/16 07:06 RDW 16.5 % (13.2-15.2) H 10/02/16 07:06 Plt Count 295 K/mm3 (140-440) 10/02/16 07:06 Lymph % (Auto) [employer] 10/02/16 07:06 [place] % (Auto) [employer]ter 10/02/16 07:06 Eos % (Auto) [employer] 10/02/16 07:06 Baso % (Auto) [employer] 10/02/16 07:06 Lymph # [employer] 10/02/16 07:06 [place] # [employer]ter 10/02/16 07:06 Eos # [employer]ter 10/02/16 07:06 Baso # [employer]ter 10/02/16 07:06 Add Manual Diff Complete 10/02/16 07:06 Total Counted 100 10/02/16 07:06 Seg Neutrophils % [employer] 10/02/16 07:06 Seg Neuts % (Manual) 79.0 % (40.0-70.0) H 10/02/16 07:06 Band Neutrophils % 9.0 % 10/02/16 07:06 Lymphocytes % (Manual) 11.0 % (13.4-35.0) L 10/02/16 07:06 Reactive Lymphs % (Man) 0 % 10/02/16 07:06 Monocytes % (Manual) 1.0 % (0.0-7.3) 10/02/16 07:06 Eosinophils % (Manual) 0 % (0.0-4.3) 10/02/16 07:06 Basophils % (Manual) 0 % (0.0-1.8) 10/02/16 07:06 Metamyelocytes % 0 % 10/02/16 07:06 Myelocytes % 0 % 10/02/16 07:06 Promyelocytes % 0 % 10/02/16 07:06 Blast Cells % 0 % 10/02/16 07:06 Nucleated RBC % Not Reportable 10/02/16 07:06 Seg Neutrophils # [employer] 10/02/16 07:06 Seg Neutrophils # Man 10.7 K/mm3 (1.8-7.7) H 10/02/16 07:06 Band Neutrophils # 1.2 K/mm3 10/02/16 07:06 Lymphocytes # (Manual) 1.5 K/mm3 (1.2-5.4) 10/02/16 07:06 Abs React Lymphs (Man) 0.0 K/mm3 10/02/16 07:06 Monocytes # (Manual) 0.1 K/mm3 (0.0-0.8) 10/02/16 07:06 Eosinophils # (Manual) 0.0 K/mm3 (0.0-0.4) 10/02/16 07:06 Basophils # (Manual) 0.0 K/mm3 (0.0-0.1) 10/02/16 07:06 Metamyelocytes # 0.0 K/mm3 10/02/16 07:06 Myelocytes # 0.0 K/mm3 10/02/16 07:06 Promyelocytes # 0.0 K/mm3 10/02/16 07:06 Blast Cells # 0.0 K/mm3 10/02/16 07:06 WBC Morphology Not Reportable 10/02/16 07:06 Hypersegmented Neuts Not Reportable 10/02/16 07:06 Hyposegmented Neuts Not Reportable 10/02/16 07:06 Hypogranular Neuts Not Reportable 10/02/16 07:06 Smudge Cells Not Reportable 10/02/16 07:06 Toxic Granulation Not Reportable 10/02/16 07:06 Toxic Vacuolation Not Reportable 10/02/16 07:06 Dohle Bodies Not Reportable 10/02/16 07:06 Pelger-Huet Anomaly Not Reportable 10/02/16 07:06 Aida Rods Not Reportable 10/02/16 07:06 Platelet Estimate Not Reportable 10/02/16 07:06 Clumped Platelets Not Reportable 10/02/16 07:06 Plt Clumps, EDTA Not Reportable 10/02/16 07:06 Large Platelets Not Reportable 10/02/16 07:06 Giant Platelets Not Reportable 10/02/16 07:06 Platelet Satelliting Not Reportable 10/02/16 07:06 Plt Morphology Comment Not Reportable 10/02/16 07:06 RBC Morphology Not Reportable 10/02/16 07:06 Dimorphic RBCs Not Reportable 10/02/16 07:06 Polychromasia Rare 10/02/16 07:06 Hypochromasia Not Reportable 10/02/16 07:06 Poikilocytosis 1+ 10/02/16 07:06 Anisocytosis 1+ 10/02/16 07:06 Microcytosis Not Reportable 10/02/16 07:06 Macrocytosis Not Reportable 10/02/16 07:06 Spherocytes Rare 10/02/16 07:06 Pappenheimer Bodies Not Reportable 10/02/16 07:06 Sickle Cells Not Reportable 10/02/16 07:06 Target Cells Not Reportable 10/02/16 07:06 Tear Drop Cells Not Reportable 10/02/16 07:06 Ovalocytes Not Reportable 10/02/16 07:06 Stomatocytes Rare 09/28/16 08:23 Helmet Cells Not Reportable 10/02/16 07:06 [place] Bodies Not Reportable 10/02/16 07:06 [place] Rings Not Reportable 10/02/16 07:06 [place] Cells Not Reportable 10/02/16 07:06 Bite Cells Not Reportable 10/02/16 07:06 Crenated Cell Not Reportable 10/02/16 07:06 Elliptocytes Not Reportable 10/02/16 07:06 Acanthocytes (Spur) Not Reportable 10/02/16 07:06 Rouleaux Not Reportable 10/02/16 07:06 Hemoglobin C Crystals Not Reportable 10/02/16 07:06 Schistocytes Not Reportable 10/02/16 07:06 Malaria parasites Not Reportable 10/02/16 07:06 [place] Bodies Not Reportable 10/02/16 07:06 Hem Pathologist Commnt No 10/02/16 07:06 Sodium 134 mmol/L (137-145) L 10/07/16 08:01 Potassium 4.3 mmol/L (3.6-5.0) 10/07/16 08:01 Chloride 96.9 mmol/L (98-107) L 10/07/16 08:01 Carbon Dioxide 27 mmol/L (22-30) 10/07/16 08:01 Anion Gap 14 mmol/L 10/07/16 08:01 BUN 44 mg/dL (7-17) H 10/07/16 08:01 Creatinine 4.8 mg/dL (0.7-1.2) H 10/07/16 08:01 Estimated GFR 10 ml/min 10/07/16 08:01 BUN/Creatinine Ratio 9.16 % 10/07/16 08:01 Glucose 113 mg/dL (65-100) H 10/07/16 08:01 POC Glucose 372 (70-105) H 10/07/16 19:33 Hemoglobin A1c 5.3 % (4-6) 09/28/16 08:23 Calcium 7.9 mg/dL (8.4-10.2) L 10/07/16 08:01 Phosphorus 7.4 mg/dL (2.5-4.5) H 10/01/16 09:04 Iron 21 ug/dL (37-170) L 10/01/16 09:04 TIBC 269 mcg/dL (250-450) 10/01/16 09:04 Ferritin 82.1 ng/mL (13.0-400.0) 10/01/16 09:05 Total Bilirubin 0.3 mg/dL (0.1-1.2) 10/06/16 06:41 AST 9 units/L (5-40) 10/06/16 06:41 ALT < 5 units/L (7-56) L 10/06/16 06:41 Alkaline Phosphatase 42 units/L (35-129) 10/06/16 06:41 Total Creatine Kinase 66 units/L (30-135) 09/28/16 16:38 CK-MB (CK-2) 3.4 ng/mL (0.0-4.0) 09/28/16 16:38 CK-MB (CK-2) Rel Index 5.1 (0-4) H 09/28/16 16:38 Troponin T 0.275 ng/mL (0.00-0.029) H* 09/28/16 16:38 Total Protein 6.2 g/dL (6.3-8.2) L 10/06/16 06:41 Albumin 2.3 g/dL (3.9-5) L 10/06/16 06:41 Albumin/Globulin Ratio 0.6 % 10/06/16 06:41 Triglycerides 89 mg/dL (2-149) 09/28/16 08:23 Cholesterol 151 mg/dL (50-199) 09/28/16 08:23 LDL Cholesterol Direct 69 mg/dL (50-130) 09/28/16 08:23 HDL Cholesterol 65 mg/dL (40-59) H 09/28/16 08:23 Cholesterol/HDL Ratio 2.32 % 09/28/16 08:23 PTH Intact 506.6 pg/mL (15-65) H 10/01/16 08:59 Urine Color [place] (Yellow) 10/01/16 05:50 Urine Turbidity Turbid (Clear) 10/01/16 05:50 Urine pH 5.0 (5.0-7.0) 10/01/16 05:50 Ur Specific [place] 1.012 (1.003-1.030) 10/01/16 05:50 Urine Protein 30 mg/dl mg/dL (Negative) 10/01/16 05:50 Urine Glucose (UA) 50 mg/dL (Negative) 10/01/16 05:50 Urine Ketones Neg mg/dL (Negative) 10/01/16 05:50 Urine Blood Sm (Negative) 10/01/16 05:50 Urine Nitrite Neg (Negative) 10/01/16 05:50 Urine Bilirubin Neg (Negative) 10/01/16 05:50 Urine Urobilinogen < 2.0 mg/dL (<2.0) 10/01/16 05:50 Ur Leukocyte Esterase Lg (Negative) 10/01/16 05:50 Urine WBC (Auto) > 182.0 /HPF (0.0-6.0) H 10/01/16 05:50 Urine RBC (Auto) 46.0 /HPF (0.0-6.0) 10/01/16 05:50 U Epithel Cells (Auto) 4.0 /HPF (0-13.0) 10/01/16 05:50 Urine Bacteria (Auto) 3+ /HPF (Negative) 10/01/16 05:50 Urine WBC Clumps 3+ /HPF 10/01/16 05:50 Amorphous Crystals 1+ 10/01/16 05:50 Hyaline Casts 97 /LPF 10/01/16 05:50 Urine Mucus 1+ /HPF 10/01/16 05:50 Urine Osmolality 297 Mosm/kg 10/01/16 05:19 Urine Creatinine 123.1 mg/dL (0.1-20.0) H 10/01/16 05:19 Urine Sodium 36 mEq/L 10/01/16 05:19 Urine Total Protein 112 mg/dL (5-11.8) H 10/01/16 05:19 Hepatitis A IgM Ab -1 (NonReactive) 10/02/16 20:50 Hep Bs Antigen Non-reactive (Negative) 10/02/16 20:50 Hep B Core IgM Ab Non-reactive (NonReactive) 10/02/16 20:50 Hepatitis C Antibody Non-reactive (NonReactive) 10/02/16 20:50 Blood Type B POSITIVE 09/28/16 12:12 Antibody Screen Negative 09/28/16 12:12
--- NOTE | 2016-10-08 14:53 | Progress Note ---
Assessment and Plan (1) Acute on chronic renal failure Current Visit: No Status: Acute Plan to address problem: Acute kidney injury on advanced CKD possibly due to ATN in the setting of UTI/ pyelo. Progressive CKD also possible. HD today and will switch to MWF. Outpatient HD arranged at [facility] on /. Will monitor I/Os, electrolytes and renal parameters closely and assess for signs of renal recovery. D/c planning per primary team (2) Acute bronchitis Current Visit: Yes Status: Acute Qualifiers: Bronchitis organism: other organism Qualified Code(s): J20.8 - Acute bronchitis due to other specified organisms Plan to address problem: Antibiotics (3) CHF (congestive heart failure) Current Visit: Yes Status: Acute Qualifiers: Congestive heart failure type: unspecified congestive heart failure type Congestive heart failure chronicity: unspecified congestive heart failure chronicity Qualified Code(s): I50.9 - Heart failure, unspecified Plan to address problem: Improved. (4) Anemia Current Visit: Yes Status: Acute Qualifiers: Anemia type: unspecified type Qualified Code(s): D64.9 - Anemia, unspecified Plan to address problem: Continue ADAM on dialysis (5) HTN (hypertension) Current Visit: Yes Status: Acute Qualifiers: Hypertension type: essential hypertension Qualified Code(s): I10 - Essential (primary) hypertension Plan to address problem: BP stable with present regimen (6) Secondary hyperparathyroidism (of renal origin) Current Visit: Yes Status: Acute Plan to address problem: continue phoslo and calcitriol Subjective Date of service: 10/08/16 Interval history: Feels better, No SOB/CP Objective - Exam Narrative Exam: General appearance: appears stated age, chronically ill, frail EENT: ATNC, PERRL, mucous membranes moist Neck: no JVD, no lymphadenoapthy, trachea midline Respiratory: Present: Clear to Ascultation Cardiology: regular, S1S2 Gastrointestinal: normal, normoactive bowel sounds Integumentary: no rash, ulcers Neurologic: no focal deficit, alert and oriented x3, strength 5/5, CN 3-12 intact Psychiatric: mood/affect appropriate, cooperative - Vital Signs Vital signs: Vital Signs - 12hr 10/08/16 10/08/16 10/08/16 04:00 08:01 09:25 Temperature 98.1 F 98.2 F Pulse Rate [ 80 Anterior Bilateral Throughout] Pulse Rate [ Bilateral Throughout] Pulse Rate [ Left Radial] Pulse Rate [ Posterior Bilateral Throughout] Pulse Rate [ 72 74 Right Radial] Respiratory 18 18 Rate Respiratory 18 Rate [Anterior Bilateral Throughout] Respiratory Rate [Bilateral Throughout] Respiratory Rate [Posterior Bilateral Throughout] Blood Pressure 144/75 [Left Arm] Blood Pressure 143/72 [Right Arm] O2 Sat by Pulse 98 100 Oximetry 10/08/16 10/08/16 10/08/16 09:40 12:55 13:54 Temperature 97.5 F L Pulse Rate [ 79 70 Anterior Bilateral Throughout] Pulse Rate [ Bilateral Throughout] Pulse Rate [ 72 Left Radial] Pulse Rate [ 79 Posterior Bilateral Throughout] Pulse Rate [ Right Radial] Respiratory 20 Rate Respiratory 18 18 Rate [Anterior Bilateral Throughout] Respiratory Rate [Bilateral Throughout] Respiratory 18 Rate [Posterior Bilateral Throughout] Blood Pressure 139/60 [Left Arm] Blood Pressure [Right Arm] O2 Sat by Pulse 99 Oximetry 10/08/16 14:05 Temperature Pulse Rate [ 72 Anterior Bilateral Throughout] Pulse Rate [ 72 Bilateral Throughout] Pulse Rate [ Left Radial] Pulse Rate [ Posterior Bilateral Throughout] Pulse Rate [ Right Radial] Respiratory Rate Respiratory 18 Rate [Anterior Bilateral Throughout] Respiratory 18 Rate [Bilateral Throughout] Respiratory Rate [Posterior Bilateral Throughout] Blood Pressure [Left Arm] Blood Pressure [Right Arm] O2 Sat by Pulse Oximetry - Lab 10/02/16 07:06 10/07/16 08:01 Most recent lab results Calcium 7.9 mg/dL (8.4-10.2) L 10/07/16 08:01 Phosphorus 7.4 mg/dL (2.5-4.5) H 10/01/16 09:04 Urine Creatinine 123.1 mg/dL (0.1-20.0) H 10/01/16 05:19 Urine Sodium 36 mEq/L 10/01/16 05:19 Urine Total Protein 112 mg/dL (5-11.8) H 10/01/16 05:19
[2016-10-08] MEDS: REMERON PO SCH (21:46)
[2016-10-08] MEDS: LEVEMIR SUB-Q SCH (21:47)
[2016-10-09] MEDS: HEPARIN SUB-Q SCH ×2 (06:02→14:20)
[2016-10-09] MEDS: PHOSLO PO SCH ×3 (08:34→18:00)
[2016-10-09] MEDS: DUONEB 0.5 MG-3 MG/3 ML SOLN IH SCH ×2 (09:11→14:13)
--- NOTE | 2016-10-09 11:09 | Discharge Summary ---
Providers - Providers Date of Admission: 09/28/16 13:07 Date of discharge: 10/09/16 Attending physician: BELA LY 10/02/16 08:26 Consult to Interventional Radiology [CONS] Urgent Consulting Provider: ROSA SANDERS Reason For Exam: JAMEE on CKD needs hemodialysis Notified:: GERBER 10/04/16 11:40 Consult to Case Management [CONS] Routine Services Needed at Discharge: Other Notified:: Case Management Was contact made?: Yes If yes, spoke with:: Erica-Case Management Time called:: 11:46 Comment:: hemodialysis Additional Physician Instructions: at [facility] or [facility] 09/30/16 10:08 Consult to Physician [CONS] Routine Consulting Provider: EVA SHAY Reason For Exam: jamee on CKD Place consult to:: DR SHAY Notified:: DR SHAY Primary care physician: [facility] Hospitalization Condition: Stable Disposition: STILL A PATIENT - Discharge Diagnoses (1) Acute on chronic renal failure Status: Acute Core Measure Documentation - Palliative Care Palliative Care/ Comfort Measures: Not Applicable - Core Measures Any of the following diagnoses?: heart failure - Heart Failure Discharge Requirements TOMMY/ARB for LVSD if EF <40%: Not Applicable Beta lina at discharge: Yes Exam - Constitutional Vitals: Temp Pulse Resp BP Pulse Ox 98.5 F 75 16 172/74 97 10/09/16 07:46 10/09/16 09:24 10/09/16 09:24 10/09/16 07:46 10/09/16 09:14 Plan Activity: advance as tolerated Diet: low fat, low cholesterol, low salt, diabetic, renal Additional Instructions: 1. Follow up with primary care physician in 3-5 days. 2. Continue hemodialysis as scheduled. 3. Follow-up with Dr. Morley at dialysis in 3-5 days Follow up with: PRIMARY CARE, [Primary Care Provider] - 3-5 Days Prescriptions: Albuterol Sulfate [Ventolin HFA] 2 puff IH Q4H PRN #1 pump PRN Reason: Shortness Of Breath Calcitriol [Rocaltrol] 0.25 mcg PO QDAY #30 capsule Calcium Acetate [Phoslo] 1,334 mg PO TID #90 capsule Carvedilol [Coreg] 12.5 mg PO BID #60 tablet Prednisone [predniSONE 5 mg (6-Day Pack, 21 Tabs)] 5 mg PO .TAPER #1 tab.ds.pk amLODIPine [Norvasc] 10 mg PO DAILY #30 tablet
[2016-10-09] MEDS: NORVASC PO SCH (11:42)
[2016-10-09] MEDS: NORMODYNE PO SCH ×3 (11:42→21:42)
[2016-10-09] MEDS: MUCINEX ER PO SCH (12:42)
[2016-10-09] MEDS: ROCEPHIN/NS 1 GM/50 ML 50 ML IV SCH (12:43)
[2016-10-09] MEDS: PROTONIX PO SCH (12:43)
[2016-10-09] MEDS: ROCALTROL PO SCH (12:43)
[2016-10-09] MEDS: ZITHROMAX 500 MG in NACL 0.9% 250ML 250 ML IV SCH (12:44)
[2016-10-09] MEDS ORDERED: NACL 0.9% 1000 ML 100 ML IV PRN (12:57)
[2016-10-09] MEDS: HEPARIN IV PRN (16:08)
[2016-10-09] MEDS ORDERED: NACL 0.9 (PRIMING MACHINE ONLY DIALYSIS) MC ONE (17:23)
--- NOTE | 2016-10-09 17:29 | Progress Note ---
Assessment and Plan (1) Acute on chronic renal failure Current Visit: No Status: Acute Plan to address problem: Acute kidney injury on advanced CKD possibly due to ATN in the setting of UTI/ pyelo. Progressive CKD also possible. HD today. Outpatient HD arranged at [facility] on //. Ok for d/c from renal perspective (2) Acute bronchitis Current Visit: Yes Status: Acute Qualifiers: Bronchitis organism: other organism Qualified Code(s): J20.8 - Acute bronchitis due to other specified organisms Plan to address problem: Antibiotics (3) CHF (congestive heart failure) Current Visit: Yes Status: Acute Qualifiers: Congestive heart failure type: unspecified congestive heart failure type Congestive heart failure chronicity: unspecified congestive heart failure chronicity Qualified Code(s): I50.9 - Heart failure, unspecified Plan to address problem: Improved. (4) Anemia Current Visit: Yes Status: Acute Qualifiers: Anemia type: unspecified type Qualified Code(s): D64.9 - Anemia, unspecified Plan to address problem: Continue ADAM on dialysis (5) HTN (hypertension) Current Visit: Yes Status: Acute Qualifiers: Hypertension type: essential hypertension Qualified Code(s): I10 - Essential (primary) hypertension Plan to address problem: BP stable with present regimen (6) Secondary hyperparathyroidism (of renal origin) Current Visit: Yes Status: Acute Plan to address problem: continue phoslo and calcitriol Subjective Date of service: 10/09/16 Interval history: No SOB/CP Objective - Exam Narrative Exam: General appearance: appears stated age, chronically ill, frail EENT: ATNC, PERRL, mucous membranes moist Neck: no JVD, no lymphadenoapthy, trachea midline Respiratory: Present: Clear to Ascultation Cardiology: regular, S1S2 Gastrointestinal: normal, normoactive bowel sounds Integumentary: no rash, ulcers Neurologic: no focal deficit, alert and oriented x3, strength 5/5, CN 3-12 intact Psychiatric: mood/affect appropriate, cooperative - Vital Signs Vital signs: Vital Signs - 12hr 10/09/16 10/09/16 10/09/16 07:46 08:17 08:49 Temperature 98.5 F Pulse Rate 72 Pulse Rate [ Bilateral Throughout] Pulse Rate [ 72 Right Dorsalis Pedis] Respiratory 22 Rate Respiratory Rate [Bilateral Throughout] Blood Pressure Blood Pressure 172/74 [Left Arm] O2 Sat by Pulse 97 97 Oximetry 10/09/16 10/09/16 10/09/16 09:11 09:14 09:24 Temperature Pulse Rate Pulse Rate [ 77 75 Bilateral Throughout] Pulse Rate [ Right Dorsalis Pedis] Respiratory Rate Respiratory 16 16 Rate [Bilateral Throughout] Blood Pressure Blood Pressure [Left Arm] O2 Sat by Pulse 97 Oximetry 10/09/16 10/09/16 10/09/16 11:15 13:30 13:33 Temperature 97.4 F L 98 F Pulse Rate 82 82 Pulse Rate [ Bilateral Throughout] Pulse Rate [ 80 Right Dorsalis Pedis] Respiratory 20 18 Rate Respiratory Rate [Bilateral Throughout] Blood Pressure 152/62 158/70 Blood Pressure 140/66 [Left Arm] O2 Sat by Pulse 97 Oximetry 10/09/16 10/09/16 10/09/16 13:45 14:00 14:15 Temperature Pulse Rate 84 86 84 Pulse Rate [ Bilateral Throughout] Pulse Rate [ Right Dorsalis Pedis] Respiratory Rate Respiratory Rate [Bilateral Throughout] Blood Pressure 146/68 134/64 146/64 Blood Pressure [Left Arm] O2 Sat by Pulse Oximetry 10/09/16 10/09/16 10/09/16 14:30 14:45 15:00 Temperature Pulse Rate 82 82 78 Pulse Rate [ Bilateral Throughout] Pulse Rate [ Right Dorsalis Pedis] Respiratory Rate Respiratory Rate [Bilateral Throughout] Blood Pressure 136/70 114/68 136/62 Blood Pressure [Left Arm] O2 Sat by Pulse Oximetry 10/09/16 10/09/16 10/09/16 15:15 15:30 15:45 Temperature Pulse Rate 82 76 74 Pulse Rate [ Bilateral Throughout] Pulse Rate [ Right Dorsalis Pedis] Respiratory Rate Respiratory Rate [Bilateral Throughout] Blood Pressure 146/60 150/70 148/70 Blood Pressure [Left Arm] O2 Sat by Pulse Oximetry 10/09/16 10/09/16 10/09/16 16:00 16:15 16:38 Temperature Pulse Rate 74 76 78 Pulse Rate [ Bilateral Throughout] Pulse Rate [ Right Dorsalis Pedis] Respiratory Rate Respiratory Rate [Bilateral Throughout] Blood Pressure 154/60 138/64 170/72 Blood Pressure [Left Arm] O2 Sat by Pulse Oximetry 10/09/16 16:45 Temperature 98.2 F Pulse Rate 78 Pulse Rate [ Bilateral Throughout] Pulse Rate [ Right Dorsalis Pedis] Respiratory 18 Rate Respiratory Rate [Bilateral Throughout] Blood Pressure 170/72 Blood Pressure [Left Arm] O2 Sat by Pulse Oximetry - Lab 10/02/16 07:06 10/07/16 08:01 Most recent lab results Calcium 7.9 mg/dL (8.4-10.2) L 10/07/16 08:01 Phosphorus 7.4 mg/dL (2.5-4.5) H 10/01/16 09:04 Urine Creatinine 123.1 mg/dL (0.1-20.0) H 10/01/16 05:19 Urine Sodium 36 mEq/L 10/01/16 05:19 Urine Total Protein 112 mg/dL (5-11.8) H 10/01/16 05:19
[2016-10-09 21:29] VITALS: BP 174/77
--- NOTE | 2016-10-12 08:59 | Query-Infection ---
"Nani Ayala Date:_10/12/16 General Lot Attendant/CDS:_Joanna/Blas Florez Phone#:_[phone] Exercise your independent professional judgment when responding to this query. Questions asked do not imply a particular answer is desired or expected. We greatly appreciate your clarification on this issue. Clinical Documentation States: 85 Y/O female admitted on 09/28/16 with history of COPD, Heart failure, HTN, DM presents with cough and shortness of breath for the past 2 days with general malaise and myalgias. Clinical findings show: (please check applicable parameters) Infection, known /suspected, with some of the following indicators; Specify the infection: Acute Bronchitis, possible early Pneumonia on admission Temp: 99.6 RR: 20 HR: 95 Acute renal failure 3 General parameters [ ] Fever (core temp >38.30C or 100.40F) [ ] Hypothermia (core temp <36C) [ ] Heart rate >90 bpm [ ] Tachypnea: >20 bpm or pCO2 < 32 mmHg [ ] Altered mental status [ ] Significant edema / +ve fluid balance (>20 ml/kg 24 h) [ ] Hyperglycemia (Bl. glucose >110 mg/dl) w/o diabetes Inflammatory parameters [ ] Leukocytosis (white blood cell count >12,000/l) [ ] Leukopenia (white blood cell count <4,000/l) [ ] Bandemia (immature WBC > 10%) [ ] Leucocyte Left Shift [ ] Plasma procalcitonin>2 SD above the normal value Hemodynamic and tissue perfusion parameters [ ] Arterial hypotension(SBP <90 mmHg, MAP <70 mmHg,or a SBP drop >40 mmHg in adults) [ ] Hyperlactatemia (>3 mmol/l) [ ] Anion Gap (> 11mEG/l) [ ] Decreased capillary refill or mottling Organ dysfunction parameters [ ] Arterial hypoxemia (PaO2/FIO2 <300) [ ] Creatinine increase =0.5 mg/dl [ ] Acute oliguria (urine output <0.5 ml | kg |h or 45 mM/l for at least 2 hrs) [ ] Coagulation abnormalities (INR >1.5 or activated partial thromboplastin time >60 s) [ ] Ileus (absent otoniel wel sounds) [ ] Thrombocytopenia (platelet count <100,000/l) [ ] Hyperbilirubinemia (plasma total bilirubin >4 mg/dl) According to the clinical indications above, can Bacteremia be further specified? If so, please indicate below and in your Progress Notes and/ or Discharge Summary. Indicate if the condition was present on admission. PHYSICIAN RESPONSE: [x ] Sepsis [ ] Severe Sepsis [ ] Septic Shock [ ] Septicemia [ ] Sepsis now resolved [ ] SIRS due to non-infectious cause with organ dysfunction [ ] SIRS due to non-infectious cause without organ dysfunction [ ] Other: [ ] Comment/Explanation: Present on Admission: [ x] Yes (Y) [ ] Clinically undeterminable (W) [ ] No (N) [ ] Ruled Out Please also document response in your Progress Notes and/or Discharge Summary and indicate if the condition was present on admission Notes: SIRS/ SIRS WITH ORGAN DYSFUNCTION Systemic inflammatory response syndrome (SIRS) generally refers to the systemic response to trauma/gallagher or other insult such as Acute Myocardial Infarction, Acute Pancreatitis, and Major Surgery with symptoms including fever, tachycardia , tachypnea, and leukocytosis (1). BACTEREMIA Presence of viable bacteria in the circulating blood (2). This term is reserved for patients that do not manifest above SIRS response. SEPTICEMIA Generally refers to a systemic disease associated with the presence of pathological microorganisms or toxins in the blood, which can include bacteria, viruses, fungi or other organisms (1). SEPSIS Generally refers to SIRS due infection (1). SEVERE SEPSIS Generally refers to sepsis associated with acute organ dysfunction (1). SEPTIC SHOCK Generally refers to circulatory failure associated with severe sepsis (2), and defined as hypotension or hypoperfusion despite adequate fluid resuscitation (1 hour) (3). REFERENCES: 1. [employer]/Society of Critical Care Medicine Consensus Conference. Definitions for sepsis and organ failure and guidelines for the use of innovative therapies in sepsis. Critical Care Med 1992;20:864 - 74. 2. Kimo dennis MM, Indira MP, [place] BRUCE, Homar E, Kar D, Tony D, Eyad J, Lizzette SM , Feroz ZAMORA, Megan G; International Sepsis Definitions Conference. 2001 SCCM/ESICM/ACCP/ATS/SIS International Sepsis Definitions Conference. Intensive Care Med. 2002 Apr;29(4):530-8. Epub 2002Dec 26. Review. PubMed PMID:[id number] 3. ICD-9-CM Official Guidelines for Coding and Reporting 4. Medscape Drugs, Diseases and Procedures references 5. Steve Textbook of Internal Medicine. 18th Edition MTDD"
== END 2016-10-09 21:43 | disposition home or self-care (01) | DRG 871 ==
LOC: ED 07:34 → 4A 13:07 → EDBD 13:07 → 4A 15:52
PROVIDERS: ADMIT Hospitalist; ATTEND Internal Medicine
PROC: B543ZZA Ultrasonography of Right Jugular Veins, Guidance (ICD-10-PCS; principal; 2016-10-02)
PROC: 02H633Z Insertion of Infusion Device into Right Atrium, Percutaneous Approach (ICD-10-PCS; 2016-10-02)
PROC: B5131ZA Fluoroscopy of Right Jugular Veins using Low Osmolar Contrast, Guidance (ICD-10-PCS; 2016-10-02)
PROC: 5A1D60Z (ICD-10-PCS; 2016-10-03)
PROC: 06PYX3Z Removal of Infusion Device from Lower Vein, External Approach (ICD-10-PCS; 2016-10-04)
PROC: 02H633Z Insertion of Infusion Device into Right Atrium, Percutaneous Approach (ICD-10-PCS; 2016-10-04)
PROC: B5131ZA Fluoroscopy of Right Jugular Veins using Low Osmolar Contrast, Guidance (ICD-10-PCS; 2016-10-04)
DX: A41.9 Sepsis, unspecified organism (principal); N18.6 End stage renal disease; I13.2 Hypertensive heart and chronic kidney disease with heart failure and with stage 5 chronic kidney disease, or end stage renal disease; N17.9 Acute kidney failure, unspecified; J44.1 Chronic obstructive pulmonary disease with (acute) exacerbation; E87.2 Acidosis; N39.0 Urinary tract infection, site not specified; I50.22 Chronic systolic (congestive) heart failure; N12 Tubulo-interstitial nephritis, not specified as acute or chronic; J20.9 Acute bronchitis, unspecified; P19.9 Metabolic acidemia in newborn, unspecified; M19.90 Unspecified osteoarthritis, unspecified site; E11.22 Type 2 diabetes mellitus with diabetic chronic kidney disease; D63.1 Anemia in chronic kidney disease; Z79.899 Other long term (current) drug therapy; Z98.890 Other specified postprocedural states
CPT/HCPCS: 36415; 36556; 36558; 71020; 74000; 76770; 76937; 77001; 80048; 80053; 80061; 80074; 81001; 82550; 82553; 82570; 82728; 82962; 83036; 83550; 83935; 83970; 84100; 84156; 84300; 84484; 85007; 85025; 86850; 86900; 86901; 87040; 87400; 93005; 93010; 93306; 94640; 94760; 96365; 96375; C1750; C1751; C1752; C1769; C9113; J0360; J0456; J0690; J0696; J0885; J1644; J1650; J1815; J1818; J2250; J2270; J2405; J2920; J3010; J7030; J7050; J7070

== ENCOUNTER 2016-10-21 15:13 | Inpatient (IN) | payer MEDICARE ==
--- NOTE | 2016-10-21 16:36 | Emergency Department Report ---
ED General Adult HPI - General Chief complaint: Hypoglycemia Stated complaint: LOW BLOOD SUGAR Time Seen by Provider: 10/21/16 16:14 Source: patient, EMS Mode of arrival: Stretcher Limitations: No Limitations - History of Present Illness Initial comments: 85-year-old female with history of end-stage renal disease on dialysis but recently started about one week ago with last dialysis yesterday, diabetes, COPD , colostomy presenting today because of altered mental status. Patient was found by EMS to be hypoglycemic and received D50 in the field with significant improvement in mental status. Patient states that she is not on insulin but she is on the beside 3 times a day that she was prescribed from the hospital. She also states that she fell off her bed this morning or last night and is complaining about some right hip pain. Denies any fevers, chills, nausea, vomiting, blood in her colostomy bag. States that she has been eating like usual self this past week. Denies having taken extra doses of her medications as far she knows. - Related Data Home Medications Medication Instructions Recorded Confirmed Last Taken Mirtazapine 7.5 mg PO QHS 09/28/16 10/21/16 09/28/16 Calcium Acetate [Phoslo] 667 mg PO TID 10/21/16 10/21/16 Unknown Carvedilol [Coreg] 12.5 mg PO BID 10/21/16 10/21/16 Unknown Previous Rx's Medication Instructions Recorded Last Taken Type Albuterol Sulfate [Ventolin HFA] 2 puff IH Q4H PRN #1 pump 10/09/16 Unknown Rx Calcitriol [Rocaltrol] 0.25 mcg PO QDAY #30 capsule 10/09/16 Unknown Rx Famotidine [Pepcid] 20 mg PO BID #60 tablet 10/09/16 Unknown Rx amLODIPine [Norvasc] 10 mg PO DAILY #30 tablet 10/09/16 Unknown Rx glipiZIDE [Glucotrol] 5 mg PO QDAY #30 tablet 10/09/16 Unknown Rx Allergies Allergy/AdvReac Type Severity Reaction Status Date / Time No Known Allergies Allergy Verified 03/18/15 10:53 ED Review of Systems ROS: Stated complaint: LOW BLOOD SUGAR Other details as noted in HPI Comment: All other systems reviewed and negative Constitutional: denies: chills, fever Respiratory: denies: cough Cardiovascular: denies: chest pain, palpitations Gastrointestinal: denies: abdominal pain, nausea, vomiting, diarrhea Skin: denies: rash Psychiatric: denies: anxiety ED Past Medical Hx - Past Medical History Previous Medical History?: Yes Hx Hypertension: Yes (25YRS) Hx Congestive Heart Failure: Yes Hx Deep Vein Thrombosis: Yes Hx Renal Disease: Yes Hx Arthritis: Yes Hx Asthma: Yes Hx COPD: Yes Additional medical history: Anemia requiring blood transfusion - Surgical History Past Surgical History?: Yes Additional Surgical History: FILTER FOR CLOTS. 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 - Social History Smoking Status: Former Smoker Substance Use Type: None - Medications Home Medications: Home Medications Medication Instructions Recorded Confirmed Last Taken Type Mirtazapine 7.5 mg PO QHS 09/28/16 10/21/16 09/28/16 History Albuterol Sulfate [Ventolin HFA] 2 puff IH Q4H PRN #1 pump 10/09/16 10/21/16 Unknown Rx Calcitriol [Rocaltrol] 0.25 mcg PO QDAY #30 capsule 10/09/16 10/21/16 Unknown Rx Famotidine [Pepcid] 20 mg PO BID #60 tablet 10/09/16 10/21/16 Unknown Rx amLODIPine [Norvasc] 10 mg PO DAILY #30 tablet 10/09/16 10/21/16 Unknown Rx glipiZIDE [Glucotrol] 5 mg PO QDAY #30 tablet 10/09/16 10/21/16 Unknown Rx Calcium Acetate [Phoslo] 667 mg PO TID 10/21/16 10/21/16 Unknown History Carvedilol [Coreg] 12.5 mg PO BID 10/21/16 10/21/16 Unknown History ED Physical Exam - General Limitations: No Limitations General appearance: alert - Head Head exam: Present: atraumatic - Eye Eye exam: Present: normal appearance - Respiratory Respiratory exam: Present: normal lung sounds bilaterally - Cardiovascular Cardiovascular Exam: Present: regular rate, normal rhythm - GI/Abdominal GI/Abdominal exam: Present: soft, hernia. Absent: tenderness - Extremities Exam Extremities exam: Absent: tenderness - Psychiatric Psychiatric exam: Present: normal affect - Skin Skin exam: Present: intact ED Course Vital Signs 10/21/16 10/21/16 10/21/16 15:51 15:56 16:00 Pulse Rate 96 H Respiratory Rate Blood Pressure 179/82 183/75 O2 Sat by Pulse 100 100 100 Oximetry 10/21/16 10/21/16 18:03 18:33 Pulse Rate Respiratory 16 Rate Blood Pressure 183/75 O2 Sat by Pulse 100 100 Oximetry - Reevaluation(s) Reevaluation #1: 10/21/16 19:00 I discussed the results with the patient. Now she states that she actually takes her glipizide once a day. It appears maybe the patient is taking more than she is prescribed. With the hospitalist who will admit the patient. ED Medical Decision Making - Lab Data Result diagrams: 10/21/16 16:30 10/21/16 16:30 - Medical Decision Making IV, labs, CT of head, chest x-ray, hip and pelvis x-ray We'll repeat fingersticks Patient ate some peanut butter and crackers prior to my seeing her As the patient is on glipizide and experienced severe hypoglycemia she is likely to sit again then will need to be admitted Patient started on a D5 1/2 normal saline drip Critical care attestation.: If time is entered above; I have spent that time in minutes in the direct care of this critically ill patient, excluding procedure time. ED Disposition Clinical Impression: Hypoglycemia Hypoglycemia secondary to sulfonylurea Qualifiers: Encounter type: initial encounter Injury intent: accidental or unintentional Qualified Code(s): T38.3X1A - Poisoning by insulin and oral hypoglycemic [ antidiabetic] drugs, accidental (unintentional), initial encounter Disposition: OP ADMITTED IP TO THIS HOSP Is pt being admited?: Yes Does the pt Need Aspirin: No Condition: Stable Time of Disposition: 18:59 (Endorsed to hospitalist)
[2016-10-21 16:40] LABS: Bilirubin,Urine NEG (Negative); Blood,Urine NEG (Negative); Ketones,Urine NEG (Negative); Leukocyte Esterase,Urine NEG (Negative); Nitrite,Urine NEG (Negative); Urobilinogen,Urine < 2.0 mg/dL (<2.0)
[2016-10-21 16:43] LABS: Basophils % (Auto) 0.7 % (0.0-1.8); Eosinophils % (Auto) 2.8 % (0.0-4.3); Hematocrit 26.4 % (30.3-42.9); Hemoglobin 8.1 gm/dl (10.1-14.3); Mean Corpuscular HGB Conc 31 % (30-34); Mean Corpuscular Hemoglobin 26 pg (28-32); Mean Corpuscular Volume 84 fl (79-97); Platelet Count 185 K/mm3 (140-440); Red Blood Count 3.13 M/mm3 (3.65-5.03); Red Cell Distribution Width 18.2 % (13.2-15.2); White Blood Count 5.4 K/mm3 (4.5-11.0)
[2016-10-21 17:02] LABS: BUN/Creatinine Ratio 7.77; Calcium 8.8 mg/dL (8.4-10.2); Chloride 98.8 mmol/L (98-107); Potassium 3.8 mmol/L (3.6-5.0)
[2016-10-21 17:24] LABS: Alanine Aminotransferase 19 units/L (7-56); Albumin 3.4 g/dL (3.9-5); Albumin/Globulin Ratio 0.9 %; Alkaline Phosphatase 94 units/L (35-129); Bilirubin,Total 0.4 mg/dL (0.1-1.2); Magnesium 2.1 mg/dL (1.7-2.3); Total Protein 7.2 g/dL (6.3-8.2)
--- NOTE | 2016-10-21 17:24 | Cat Scan Report ---
FINAL REPORT EXAM: CT HEAD/BRAIN WO CON HISTORY: fall TECHNIQUE: Standard unenhanced CT of the head at 5.0 millimeter axial increments. PRIORS: None. FINDINGS: The ventricular system is normal in size and configuration. There is no evidence for parenchymal volume loss. There is no evidence for mass lesion, mass effect, midline shift, acute intracranial hemorrhage, or acute ischemia/ infarction. No evidence for acute skull fracture is seen. No abnormality in the overlying scalp soft tissues is seen. There is mucosal thickening in the bilateral ethmoid, frontal, and right maxillary sinuses. IMPRESSION: No acute intracranial process noted. Chronic sinusitis
[2016-10-21 17:31] LABS: Bilirubin,Direct < 0.2 mg/dL (0-0.2); Bilirubin,Indirect 0.2 mg/dL
[2016-10-21] MEDS: D5/0.45NS 1,000 ML IV SCH (17:47)
--- NOTE | 2016-10-21 19:05 | History and Physical Report ---
History of Present Illness Date of examination: 10/21/16 Date of admission: 10/21/16 Chief complaint: Unresponsiveness today unresponsiveness today History of present illness: Mrs. Babin is a 85-year-old female who presented to the emergency room after she was found to be unresponsive at home. EMS was called and she was found to be hypoglycemic. She responded to D50 in the field. Patient is on oral hypoglycemic agent. Apparently she also fell from her bed about a day ago and was complaining of lower back pain. She was started on D5 half normal saline in the emergency room. Of note she is also on hemodialysis which was started a week ago. The time of evaluation she had no complaints except for lower back pain Past History Past Medical History: COPD, diabetes, ESRD (on hd), hypertension, other (chf- ef 45-50) Past Surgical History: Other (colostomy, colonic rupture, hemodialysis catheter placement) Social history: full code. denies: smoking, alcohol abuse, prescription drug abuse Family history: hypertension Medications and Allergies Allergies Allergy/AdvReac Type Severity Reaction Status Date / Time No Known Allergies Allergy Verified 03/18/15 10:53 Home Medications Medication Instructions Recorded Confirmed Last Taken Type Mirtazapine 7.5 mg PO QHS 09/28/16 10/21/16 09/28/16 History Albuterol Sulfate [Ventolin HFA] 2 puff IH Q4H PRN #1 pump 10/09/16 10/21/16 Unknown Rx Calcitriol [Rocaltrol] 0.25 mcg PO QDAY #30 capsule 10/09/16 10/21/16 Unknown Rx Famotidine [Pepcid] 20 mg PO BID #60 tablet 10/09/16 10/21/16 Unknown Rx amLODIPine [Norvasc] 10 mg PO DAILY #30 tablet 10/09/16 10/21/16 Unknown Rx glipiZIDE [Glucotrol] 5 mg PO QDAY #30 tablet 10/09/16 10/21/16 Unknown Rx Calcium Acetate [Phoslo] 667 mg PO TID 10/21/16 10/21/16 Unknown History Carvedilol [Coreg] 12.5 mg PO BID 10/21/16 10/21/16 Unknown History Active Meds: Active Medications Dextrose/Sodium Chloride (D5/0.45ns) 1,000 mls @ 100 mls/hr IV DIRECT YAMILETH Last Admin: 10/21/16 17:47 Dose: 100 mls/hr Review of Systems All systems: negative Constitutional: no weight loss, no weight gain, no fever, no chills Ears, nose, mouth and throat: no ear pain, no ear discharge, no tinnitis, no decreased hearing Cardiovascular: no chest pain, no orthopnea, no palpitations, no rapid/ irregular heart beat Gastrointestinal: no abdominal pain, no nausea, no vomiting, no diarrhea Genitourinary Female: no pelvic pain, no flank pain Rectal: no pain, no incontinence, no bleeding Musculoskeletal: no neck stiffness, no neck pain, no shooting arm pain, no arm numbness/tingling Integumentary: no rash, no pruritis, no redness, no sores Neurological: no head injury, no transient paralysis, no paralysis, no weakness Psychiatric: no anxiety, no memory loss, no change in sleep habits, no sleep disturbances, no insomnia, no hypersomnia Endocrine: no cold intolerance, no heat intolerance, no polyphagia, no excessive thirst, no polydipsia Hematologic/Lymphatic: no easy bruising, no easy bleeding Allergic/Immunologic: no urticaria Exam - Constitutional Vitals: Temp Pulse Resp BP Pulse Ox 96 H 16 183/75 100 10/21/16 15:51 10/21/16 18:33 10/21/16 18:03 10/21/16 18:33 General appearance: Present: no acute distress, well-nourished - EENT Eyes: Present: PERRL, EOM intact. Absent: scleral icterus, conjunctival injection ENT: hearing intact, clear oral mucosa, no oropharyngeal erythema, no poor dentition - Neck Neck: Present: supple, normal ROM. Absent: enlarged thyroid, masses or JVD - Respiratory Respiratory effort: normal Respiratory: bilateral: diminished, negative: rales, rhonchi, wheezing - Cardiovascular Rhythm: regular Heart Sounds: Present: S1 & S2. Absent: gallop - Extremities Extremities: no ischemia, pulses intact, pulses symmetrical, No edema Peripheral Pulses: within normal limits - Abdominal General gastrointestinal: Present: soft, non-tender, non-distended, normal bowel sounds Female genitourinary: Present: deferred - Rectal Rectal Exam: deferred - Integumentary Integumentary: Present: clear - Musculoskeletal Musculoskeletal: strength equal bilaterally, generalized weakness - Psychiatric Psychiatric: appropriate mood/affect, intact judgment & insight, cooperative - Neurologic Neurologic: CNII-XII intact, moves all extremities Results - Labs CBC & Chem 7: 10/21/16 16:30 10/21/16 16:30 Labs: Abnormal lab results 10/21/16 10/21/16 10/21/16 Range/Units 16:00 16:30 16:30 RBC 3.13 L (3.65-5.03) M/mm3 Hgb 8.1 L (10.1-14.3) gm/dl Hct 26.4 L (30.3-42.9) % MCH 26 L (28-32) pg RDW 18.2 H (13.2-15.2) % Lymph % (Auto) 9.0 L (13.4-35.0) % [place] % (Auto) 13.2 H (0.0-7.3) % Lymph # 0.5 L (1.2-5.4) K/mm3 Seg Neutrophils % 74.3 H (40.0-70.0) % Carbon Dioxide 33 H (22-30) mmol/L BUN 21 H (7-17) mg/dL Creatinine 2.7 H (0.7-1.2) mg/dL Albumin (3.9-5) g/dL Urine pH 9.0 H (5.0-7.0) 10/21/16 Range/Units 16:30 RBC (3.65-5.03) M/mm3 Hgb (10.1-14.3) gm/dl Hct (30.3-42.9) % MCH (28-32) pg RDW (13.2-15.2) % Lymph % (Auto) (13.4-35.0) % [place] % (Auto) (0.0-7.3) % Lymph # (1.2-5.4) K/mm3 Seg Neutrophils % (40.0-70.0) % Carbon Dioxide (22-30) mmol/L BUN (7-17) mg/dL Creatinine (0.7-1.2) mg/dL Albumin 3.4 L (3.9-5) g/dL Urine pH (5.0-7.0) xray of the hip and pelvis as well as chest x-ray are pending Assessment and Plan 1. Resolving Hypoglycemia secondary to oral hypoglycemic agent with resolved metabolic encephalopathy-we'll admit as an inpatient as more than 2 midnights are required for treatment. Continue to monitor Accu-Cheks; HOld hypoglycemic agents; cotn D5 1/2 NS. Renal consistent carb diet; 2. ESRD on HD- consult renal for HD; restart home medications; monitor for fluid overload while on IVF 3. Benign hypertension -uncontrolled; restart home meds and adjust as needed 4; Fall with lowe back pain - f/u xray of hip / pelvis; tylenol prn pain 5. DVT prophylaxis- heparin -
[2016-10-21] MEDS ORDERED: APRESOLINE IV PRN (20:40)
[2016-10-21] MEDS ORDERED: NORVASC PO ONE (20:40)
[2016-10-21] MEDS ORDERED: NORVASC ONE (20:41)
[2016-10-21] MEDS ORDERED: TYLENOL PO PRN (21:26)
[2016-10-21] MEDS ORDERED: REGLAN IV PRN ×2 (21:26→21:41)
[2016-10-21] MEDS ORDERED: PEPCID PO SCH (22:00)
[2016-10-21] MEDS ORDERED: NON-FORMULARY (Mirtazapine [Mirtazapine] 7.5 MG) PO SCH (22:00)
--- NOTE | 2016-10-21 22:26 | Admit Criteria Form ---
Admission Criteria Documentation: DIABETES, HYPOGLYCEMIA Clinical Indications for Admission to Inpatient Care (Place 'X' for any and all applicable criteria): Admission is indicated for ALL of the following (1)(2)(3)(4)(5): [ XX]I. Suspected or documented hypoglycemia (plasma glucose less than 50 mg/ dL (2.78 mmol/L)) with severe clinical manifestations or issues as indicated by ANY ONE of the following: [ ]a) Altered mental status (eg, coma, confusion) [ ]b) Seizure [ ]c) Ataxia [ ]d) Dysphasia [ ]e) Focal neurologic deficit(6) [ ]f) Severe weakness or fatigue [ ]g) Significant clinical signs or symptoms that do not resolve with treatment [ X]h) Hypoglycemia induced by ANY ONE of the following(7)(8)(9): [X ]i) Sulfonylurea(10) [ ]ii) Long-acting insulin (eg, half-life more than 6 hours ) (11) [ X]II. Management at other levels of care (See General Criteria: Observation Care) is not feasible because of ANY ONE of the following: [ ]a) Condition was not adequately corrected with treatment at other levels of care. [ X]b) Treatment at other levels of care is not appropriate because of condition severity (eg, coma). Extended stay beyond goal length of stay may be needed for(3)(12)(19): [ ]a) Long acting sulfonylurea-inducing hypoglycemia (10) [ ]b) Presentation in coma [ ]c) Identified etiology of hypoglycemia requires ongoing care (eg, infection ) [ ]d) Neurologic deficit [ ]e) Active serious comorbidities (eg, renal failure, heart failure) The original [employer] content created by [employer] has been revised. The portions of the content which have been revised are identified through the use of italic text or in bold, and [facility] has neither reviewed nor approved the modified material.All other unmodified content is copyright [employer]. Please see references footnoted in the original [facility] edition 2016 Admission Criteria Met: Yes
[2016-10-22] MEDS: PHOSLO PO SCH ×4 (00:06→17:36)
[2016-10-22] MEDS: REMERON PO SCH ×2 (00:06→23:05)
[2016-10-22] MEDS: COREG PO SCH ×3 (00:07→23:01)
[2016-10-22] MEDS: HEPARIN SUB-Q SCH ×3 (00:08→23:05)
[2016-10-22] MEDS ORDERED: PERCOCET 5/325 PO ONE (01:04)
[2016-10-22 06:45] LABS: BUN/Creatinine Ratio 6.57; Calcium 8.2 mg/dL (8.4-10.2); Potassium 3.5 mmol/L (3.6-5.0)
[2016-10-22] MEDS: ROCALTROL PO SCH (09:11)
[2016-10-22] MEDS: D5/0.45NS 1,000 ML IV SCH (09:11)
[2016-10-22] MEDS: PEPCID PO SCH (09:12)
[2016-10-22] MEDS: NORVASC PO SCH (09:13)
--- NOTE | 2016-10-22 09:36 | XRay Report ---
Single view pelvis with bilateral hips: Findings: Fall. Right hip pain. Findings: No lytic or blastic lesion. No fracture. No dislocation or fracture of hips. Impression: Essentially negative study.
--- NOTE | 2016-10-22 09:37 | XRay Report ---
Single view chest: Compared to 09/28/16. History: Fall. Findings: Cardiomegaly. Trachea is midline. Stable right large bore venous catheter. No consolidation, pneumothorax or pleural effusion. Impression: No acute cardiopulmonary findings.
--- NOTE | 2016-10-22 11:57 | Progress Note ---
Assessment and Plan Assessment and plan: Hypoglycemia. Secondary to glipizide and poor food intake. Discontinue glipizide. Return to regular/Renal diet for now until blood glucose improves. Change iv fluid to 5%Dextrise at 42 ml/hr. Diabetes mellitus type II. Hold Glucotrol for now because of hypoglycemia. Put on a regular diet for now until blood glucose improves. A1C was 5.3 three weeks ago End-stage renal disease on hemodialysis. Nephrology managing COPD. Stable no shortness of breath Hypertension. On Norvasc and Coreg. Full code status History Interval history: Patiet brought in because she was found to be unresponsive and diagnosed with hypoglycemia, She is now awake alert Hospitalist Physical - Physical exam Narrative exam: Gen appearance : Not in acute distress, , HEENT: Normocephalic atraumatic Neck: supple, no JVD. Lungs: clear to auscultation bilaterally, no crackles no wheezes Heart: S1 and S2 regular, no murmurs, rubs or gallop Abdomen: soft, nontender, nondistended normal bowel sounds,colostomy bag Extremities: No edema,no clubbing or cyanosis Neuro : Awake alert oriented 3, no focal signs - Constitutional Vitals: Temp Pulse Resp BP Pulse Ox 98.9 F 86 18 159/75 100 10/22/16 08:00 10/22/16 09:13 10/22/16 08:00 10/22/16 09:13 10/22/16 08:00 Results - Labs CBC & Chem 7: 10/21/16 16:30 10/22/16 05:40 Labs: Laboratory Last Values WBC 5.4 K/mm3 (4.5-11.0) 10/21/16 16:30 RBC 3.13 M/mm3 (3.65-5.03) L 10/21/16 16:30 Hgb 8.1 gm/dl (10.1-14.3) L 10/21/16 16:30 Hct 26.4 % (30.3-42.9) L 10/21/16 16:30 MCV 84 fl (79-97) 10/21/16 16:30 MCH 26 pg (28-32) L 10/21/16 16:30 MCHC 31 % (30-34) 10/21/16 16:30 RDW 18.2 % (13.2-15.2) H 10/21/16 16:30 Plt Count 185 K/mm3 (140-440) 10/21/16 16:30 Lymph % (Auto) 9.0 % (13.4-35.0) L 10/21/16 16:30 [place] % (Auto) 13.2 % (0.0-7.3) H 10/21/16 16:30 Eos % (Auto) 2.8 % (0.0-4.3) 10/21/16 16:30 Baso % (Auto) 0.7 % (0.0-1.8) 10/21/16 16:30 Lymph # 0.5 K/mm3 (1.2-5.4) L 10/21/16 16:30 [place] # 0.7 K/mm3 (0.0-0.8) 10/21/16 16:30 Eos # 0.2 K/mm3 (0.0-0.4) 10/21/16 16:30 Baso # 0.0 K/mm3 (0.0-0.1) 10/21/16 16:30 Seg Neutrophils % 74.3 % (40.0-70.0) H 10/21/16 16:30 Seg Neutrophils # 4.0 K/mm3 (1.8-7.7) 10/21/16 16:30 Sodium 143 mmol/L (137-145) 10/22/16 05:40 Potassium 3.5 mmol/L (3.6-5.0) L 10/22/16 05:40 Chloride 100.0 mmol/L (98-107) 10/22/16 05:40 Carbon Dioxide 31 mmol/L (22-30) H 10/22/16 05:40 Anion Gap 16 mmol/L 10/22/16 05:40 BUN 23 mg/dL (7-17) H 10/22/16 05:40 Creatinine 3.5 mg/dL (0.7-1.2) H 10/22/16 05:40 Estimated GFR 15 ml/min 10/22/16 05:40 BUN/Creatinine Ratio 6.57 % 10/22/16 05:40 Glucose 117 mg/dL (65-100) H 10/22/16 05:40 POC Glucose 134 (70-105) H 10/22/16 06:06 Calcium 8.2 mg/dL (8.4-10.2) L 10/22/16 05:40 Magnesium 2.1 mg/dL (1.7-2.3) 10/21/16 16:30 Total Bilirubin 0.4 mg/dL (0.1-1.2) 10/21/16 16:30 Direct Bilirubin < 0.2 mg/dL (0-0.2) 10/21/16 16:30 Indirect Bilirubin 0.2 mg/dL 10/21/16 16:30 AST 32 units/L (5-40) 10/21/16 16:30 ALT 19 units/L (7-56) 10/21/16 16:30 Alkaline Phosphatase 94 units/L (35-129) 10/21/16 16:30 Troponin T < 0.010 ng/mL (0.00-0.029) 10/21/16 16:30 Total Protein 7.2 g/dL (6.3-8.2) 10/21/16 16:30 Albumin 3.4 g/dL (3.9-5) L 10/21/16 16:30 Albumin/Globulin Ratio 0.9 % 10/21/16 16:30 Urine Color Straw (Yellow) 10/21/16 16:00 Urine Turbidity Clear (Clear) 10/21/16 16:00 Urine pH 9.0 (5.0-7.0) H 10/21/16 16:00 Ur Specific [place] 1.006 (1.003-1.030) 10/21/16 16:00 Urine Protein 100 mg/dl mg/dL (Negative) 10/21/16 16:00 Urine Glucose (UA) Neg mg/dL (Negative) 10/21/16 16:00 Urine Ketones Neg mg/dL (Negative) 10/21/16 16:00 Urine Blood Neg (Negative) 10/21/16 16:00 Urine Nitrite Neg (Negative) 10/21/16 16:00 Urine Bilirubin Neg (Negative) 10/21/16 16:00 Urine Urobilinogen < 2.0 mg/dL (<2.0) 10/21/16 16:00 Ur Leukocyte Esterase Neg (Negative) 10/21/16 16:00 Urine WBC (Auto) 1.0 /HPF (0.0-6.0) 10/21/16 16:00 Urine RBC (Auto) 1.0 /HPF (0.0-6.0) 10/21/16 16:00 U Epithel Cells (Auto) 1.0 /HPF (0-13.0) 10/21/16 16:00
[2016-10-22] MEDS ORDERED: D5W 1,000 ML IV SCH (12:00)
--- NOTE | 2016-10-22 16:43 | Consultation ---
History of Present Illness - Reason for Consult Consult date: 10/22/16 end stage renal disease Requesting physician: TAMARA WHITE - History of Present Illness 85-year-old lady with a history of tattoo that mismatches, hypertension and chronic systolic heart failure who was recently started on dialysis about 3 weeks ago. Patient had chronic kidney disease that has progressed to stage IV and then developed acute kidney injury versus chronic kidney disease that progressed to end-stage renal disease. Patient progressed at presented with shortness of breath and was treated for COPD exacerbation. She had been followed by property clerk at [place] and had had discussions about need for dialysis in future. Patient states was discharged home on glipizide but prior to this it had been stopped because of her advanced chronic kidney disease. Patient was brought to the hospital by ambulance on account of unresponsiveness with blood sugar as low as the 20s. She does not recall what happened. She woke up in the ambulance and was asking why she was been taking to the hospital. She has been eating better and actually ate at midnight the day before as she was hungry. 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 denies: smoking (quit smoking 6 years ago), alcohol abuse, prescription drug abuse Family history: CAD (mother of heart disease at age 77), hypertension, other (father of old age in his 90s) Medications and Allergies Allergies Allergy/AdvReac Type Severity Reaction Status Date / Time No Known Allergies Allergy Verified 03/18/15 10:53 Home Medications Medication Instructions Recorded Confirmed Last Taken Type Mirtazapine 7.5 mg PO QHS 09/28/16 10/21/16 09/28/16 History Albuterol Sulfate [Ventolin HFA] 2 puff IH Q4H PRN #1 pump 10/09/16 10/21/16 Unknown Rx Calcitriol [Rocaltrol] 0.25 mcg PO QDAY #30 capsule 10/09/16 10/21/16 Unknown Rx Famotidine [Pepcid] 20 mg PO BID #60 tablet 10/09/16 10/21/16 Unknown Rx amLODIPine [Norvasc] 10 mg PO DAILY #30 tablet 10/09/16 10/21/16 Unknown Rx glipiZIDE [Glucotrol] 5 mg PO QDAY #30 tablet 10/09/16 10/21/16 Unknown Rx Calcium Acetate [Phoslo] 667 mg PO TID 10/21/16 10/21/16 Unknown History Carvedilol [Coreg] 12.5 mg PO BID 10/21/16 10/21/16 Unknown History Active Meds: Active Medications Acetaminophen (Tylenol) 650 mg PO Q4H PRN PRN Reason: Pain MILD(1-3)/Fever >100.5/LEBRON Amlodipine Besylate (Norvasc) 10 mg PO DAILY [facility] Last Admin: 10/22/16 09:13 Dose: 10 mg Calcitriol (Rocaltrol) 0.25 mcg PO QDAY [facility] Last Admin: 10/22/16 09:11 Dose: 0.25 mcg Calcium Acetate (Phoslo) 667 mg PO TIDWM [facility] Last Admin: 10/22/16 12:25 Dose: 667 mg Carvedilol (Coreg) 12.5 mg PO BID [facility] Last Admin: 10/22/16 09:13 Dose: 12.5 mg Famotidine (Pepcid) 20 mg PO DAILY [facility] Last Admin: 10/22/16 09:12 Dose: 20 mg Heparin Sodium (Porcine) (Heparin) 5,000 unit SUB-Q Q12HR [facility] Last Admin: 10/22/16 09:14 Dose: 5,000 unit Hydralazine HCl (Apresoline) 10 mg IV Q4HR PRN PRN Reason: SBP >/= 160mmHg Dextrose (D5w) 1,000 mls @ 42 mls/hr IV DIRECT [facility] Metoclopramide HCl (Reglan) 5 mg IV Q6H PRN PRN Reason: Nausea And Vomiting Mirtazapine (Remeron) 7.5 mg PO QHS [facility] Last Admin: 10/22/16 00:06 Dose: 7.5 mg Review of Systems All systems: negative (Constitutional: no fever or chills. Appetite has been poor but is not improving and patient has lost more than 20 pounds over the last several months.HEENT: Admits to soreness in her throat but no sinus drainage no hearing but admits to vision impairment . Cardiovascular: No chest pain, shortness of breath, palpitations, but admits to lower extremity swelling . No dizziness. Respiratory: No cough, sputum, shortness of breath, hemoptysis or wheezing. Gastrointestinal: No nausea, vomiting, diarrhea, abdominal pain, hematemesis or melena. Genitourinary: She had decreasing urine output during the last hospitalization but it is now improving No frequency urgency dysuria or hematuria. hematologic: No abnormal bleeding or bruising. Integumentary: Admits to itching but no rash. Neurological: Has occasional headache no focal weakness or numbness, no syncope or seizures. Endocrine: She hasn't been checking her blood sugar at home Musculoskeletal: Admits to low back pain and pain in her shoulders. No stiffness. Psychiatry: Admits to anxiety but no depression) Exam - Vital Signs Vital signs: Vital Signs Pulse BP Pulse Ox 96 H 179/82 100 10/21/16 15:51 10/21/16 15:51 10/21/16 15:51 - Physical Exam Narrative exam: Elderly -[place] female lying in bed in no acute distress HEENT normocephalic atraumatic, left corneal opacity, pink, clear oropharynx Neck supple, no thyromegaly no jugular venous distention right IJ tunneled dialysis catheter CVS S1-S2 regular rate rhythm without murmur, rub or gallop Chest clear to auscultation Abdomen soft nondistended nontender no organomegaly no bruit bowel sounds present Extremities no edema no cyanosis or clubbing Genitourinary deferred Neuro awake, alert oriented x3 no gross deficit Results - Lab Results 10/21/16 16:30 10/22/16 05:40 Most recent lab results Calcium 8.2 mg/dL (8.4-10.2) L 10/22/16 05:40 Magnesium 2.1 mg/dL (1.7-2.3) 10/21/16 16:30 Assessment and Plan - Patient Problems (1) Hypoglycemia secondary to sulfonylurea Current Visit: Yes Status: Acute Qualifiers: Encounter type: initial encounter Injury intent: accidental or unintentional Qualified Code(s): T38.3X1A - Poisoning by insulin and oral hypoglycemic [antidiabetic] drugs, accidental (unintentional), initial encounter Plan to address problem: Agree with stopping sulfonylurea. Follow-up blood sugar (2) Acute on chronic renal failure Current Visit: No Status: Acute Plan to address problem: Suspect patient may already be end-stage renal disease. Continue hemodialysis on a Sunday, Sunday and Sunday schedule. Follow-up renal indices (3) Anemia in chronic kidney disease Current Visit: Yes Status: Acute Plan to address problem: Give high-dose erythropoietin on dialysis. Try to avoid transfusion if possible but if patient is symptomatic, would have no choice (4) Metabolic encephalopathy Current Visit: Yes Status: Acute Plan to address problem: Secondary to hypoglycemia. Resolved (5) Diabetes mellitus type II, controlled Current Visit: Yes Status: Acute Plan to address problem: Follow-up blood sugar off of medicines. Blood sugar is better controlled due to decreased insulin clearance with advanced kidney disease (6) Chronic systolic heart failure Current Visit: Yes Status: Acute Plan to address problem: Fluid removal on dialysis.Continue beta blockerACE inhibitor/angiotensin receptor lina stopped due to advanced chronic kidney disease. If patient remains stable on dialysis, we'll consider rechallenge
[2016-10-22] MEDS ORDERED: HEPARIN IV PRN (16:49)
[2016-10-22] MEDS ORDERED: HEPARIN 10,000 UNITS/10 ML IV PRN (16:49)
[2016-10-22] MEDS ORDERED: NACL 0.9% 1000 ML 100 ML IV PRN (16:49)
[2016-10-23 07:07] LABS: BUN/Creatinine Ratio 6.74; Calcium 8.4 mg/dL (8.4-10.2); Chloride 100.5 mmol/L (98-107); Phosphorous 4.5 mg/dL (2.5-4.5); Potassium 3.9 mmol/L (3.6-5.0)
[2016-10-23] MEDS: PHOSLO PO SCH ×3 (08:53→19:23)
--- NOTE | 2016-10-23 12:05 | Discharge Summary ---
Providers - Providers Date of Admission: 10/21/16 19:01 Date of discharge: 10/23/16 Attending physician: BELA LY Primary care physician: CELESTE KEITA Hospitalization Condition: Fair Hospital course: Patient is 85-year-old with diabetes mellitus type 2, hypertension, ESRD on dialysis. She was found unresponsive at home . Paramedics were called and she was found to be hypoglycemic and responded to 50% dextrose and brought to the emergency department. She was on glipizide at home 10 mg by mouth twice daily. Glipizide was discontinued and she was put on 5% dextrose drip. She was also put on Refgular renal diet. Her glucose level improved and iv fluid was discontinued after a few days. Blood glucose level remained normal and she was therefore discharged home. Initially after she was discharged on 10/23/2016 , she went home but there was no family member to receive her so she was brought back to the hospital. The family was contacted and she was went home the following morning. Her A1c was 5.3 so glipizide was discontinued on discharge. Total time spent on discharge 35 minutes Disposition: DC/TX HOME UNDER HOME HEALTH - Discharge Diagnoses (1) Hypoglycemia Status: Acute (2) HTN (hypertension) Status: Acute Qualifiers: Hypertension type: essential hypertension Qualified Code(s): I10 - Essential (primary) hypertension (3) Chronic systolic heart failure Status: Chronic (4) Diabetes mellitus type II, controlled Status: Chronic Qualifiers: Diabetes mellitus complication status: with kidney complications Diabetes mellitus complication detail: D Diabetic retinopathy severity: D Diabetes mellitus macular edema: D Diabetes mellitus half-way insulin use: D Chronic kidney disease stage: on chronic dialysis Core Measure Documentation - Palliative Care Palliative Care/ Comfort Measures: Not Applicable - Core Measures Any of the following diagnoses?: heart failure - Heart Failure Discharge Requirements TOMMY/ARB for LVSD if EF <40%: Not Applicable Beta lina at discharge: Yes Exam - Constitutional Vitals: Temp Pulse Resp BP Pulse Ox 99.1 F 83 18 163/80 97 10/23/16 08:00 10/23/16 08:00 10/23/16 08:00 10/23/16 08:00 10/23/16 08:00 Plan Activity: no restrictions Diet: low fat, low cholesterol, low salt, diabetic, renal Additional Instructions: 1.Follow up with PCP in 1 week. 2.Continue routine hemodialysis. 3.Stop Glipizide. Follow up with: CELSETE KEITA MD [Primary Care Provider] - 3-5 Days
[2016-10-23] MEDS: COREG PO SCH ×3 (12:35→21:37)
[2016-10-23] MEDS: HEPARIN SUB-Q SCH ×2 (12:35→21:33)
[2016-10-23] MEDS: NORVASC PO SCH ×2 (12:36→14:43)
[2016-10-23] MEDS: ROCALTROL PO SCH (12:36)
[2016-10-23] MEDS: PEPCID PO SCH ×2 (12:36→14:43)
--- NOTE | 2016-10-23 14:20 | Progress Note ---
Assessment and Plan - Patient Problems (1) End-stage renal disease (ESRD) Current Visit: Yes Status: Acute Plan to address problem: patient most likely has ESRD due to hypertensive nephrosclerosis, remains HD dependent. continue HD on M// schedule stable for discharge from renal stand point (2) Hypoglycemia Current Visit: Yes Status: Acute Plan to address problem: glucose stabilized. continue to hold sulfonylurea (3) Anemia in chronic kidney disease Current Visit: Yes Status: Acute (4) Chronic systolic heart failure Current Visit: Yes Status: Acute Plan to address problem: pt euvolemic on HD. will consider restarting TOMMY-I / ARB as outpatient since pt remains on HD. (5) Diabetes mellitus type II, controlled Current Visit: Yes Status: Acute Plan to address problem: currently controlled off meds. (6) Metabolic encephalopathy Current Visit: Yes Status: Acute Plan to address problem: resolved Subjective Date of service: 10/23/16 Interval history: Patient awake, alert, in NAD Objective - Vital Signs Vital signs: Vital Signs - 12hr 10/23/16 10/23/16 10/23/16 04:08 04:16 06:00 Temperature 97.5 F L Pulse Rate Pulse Rate [ 70 Left Radial] Respiratory 18 Rate Blood Pressure 187/94 Blood Pressure 187/94 166/82 [Left Arm] O2 Sat by Pulse 97 Oximetry 10/23/16 10/23/16 10/23/16 06:25 08:00 10:20 Temperature 99.1 F 99.1 F Pulse Rate 70 87 Pulse Rate [ 83 Left Radial] Respiratory 18 20 Rate Blood Pressure 128/90 Blood Pressure 163/80 [Left Arm] O2 Sat by Pulse 97 Oximetry 10/23/16 10/23/16 10/23/16 10:30 10:45 11:00 Temperature Pulse Rate 83 81 68 Pulse Rate [ Left Radial] Respiratory Rate Blood Pressure 155/59 142/53 161/62 Blood Pressure [Left Arm] O2 Sat by Pulse Oximetry 10/23/16 10/23/16 10/23/16 11:15 11:30 11:45 Temperature Pulse Rate 62 55 L 76 Pulse Rate [ Left Radial] Respiratory Rate Blood Pressure 153/54 175/70 167/53 Blood Pressure [Left Arm] O2 Sat by Pulse Oximetry 10/23/16 10/23/16 10/23/16 12:00 12:15 12:30 Temperature Pulse Rate 50 L 54 L 46 L Pulse Rate [ Left Radial] Respiratory Rate Blood Pressure 172/61 172/69 170/77 Blood Pressure [Left Arm] O2 Sat by Pulse Oximetry 10/23/16 10/23/16 10/23/16 12:45 13:00 13:20 Temperature Pulse Rate 41 L 50 L 49 L Pulse Rate [ Left Radial] Respiratory Rate Blood Pressure 183/77 172/64 179/73 Blood Pressure [Left Arm] O2 Sat by Pulse Oximetry 10/23/16 13:25 Temperature 97.9 F Pulse Rate 88 Pulse Rate [ Left Radial] Respiratory 20 Rate Blood Pressure 180/70 Blood Pressure [Left Arm] O2 Sat by Pulse Oximetry - General Appearance General appearance: well-developed, well-nourished, appears stated age EENT: ATNC, PERRL, mucous membranes moist Neck: no JVD Respiratory: Present: Clear to Ascultation Cardiology: regular, S1S2 Gastrointestinal: normal, normoactive bowel sounds Integumentary: no rash, other (no edema ) Neurologic: no focal deficit, alert and oriented x3, strength 5/5, CN 3-12 intact Psychiatric: mood/affect appropriate, cooperative - Lab 10/21/16 16:30 10/23/16 05:18 Most recent lab results Calcium 8.4 mg/dL (8.4-10.2) 10/23/16 05:18 Phosphorus 4.5 mg/dL (2.5-4.5) 10/23/16 05:18 Magnesium 2.1 mg/dL (1.7-2.3) 10/21/16 16:30
[2016-10-23] MEDS: REMERON PO SCH (21:36)
--- NOTE | 2016-10-24 08:55 | Progress Note ---
Assessment and Plan Assessment and plan: Hypoglycemia. Secondary to glipizide and poor food intake. Discontinue glipizide. Hypoglycemia resolved, blood glucose now normal. Diabetes mellitus type II. Hold Glucotrol for now because of hypoglycemia. Put on a regular diet for now until blood glucose improves. A1C was 5.3 three weeks ago End-stage renal disease on hemodialysis. Nephrology managing. Chronic Systolic heart failure COPD. Stable no shortness of breath Hypertension. On Norvasc and Coreg. Full code status Patient blood glucose stable for discharge, was discharged home however there was nobody at home so she was brought back since she is 85 years old and cannot stay by herself. - Patient Problems (1) Chronic systolic heart failure Status: Acute (2) Diabetes mellitus type II, controlled Status: Acute (3) Hypoglycemia Status: Acute (4) HTN (hypertension) Status: Acute Qualifiers: Hypertension type: essential hypertension Qualified Code(s): I10 - Essential (primary) hypertension History Interval history: late entry progress note for 10/23/16 Patient brought in because she was found to be unresponsive and diagnosed with hypoglycemia, She is now awake alert, She was stable and discharge but brought back because there was nobody at home Hospitalist Physical - Physical exam Narrative exam: Gen appearance : Not in acute distress, , HEENT: Normocephalic atraumatic Neck: supple, no JVD. Lungs: clear to auscultation bilaterally, no crackles no wheezes Heart: S1 and S2 regular, no murmurs, rubs or gallop Abdomen: soft, nontender, nondistended normal bowel sounds,colostomy bag Extremities: No edema,no clubbing or cyanosis Neuro : Awake alert oriented 3, no focal signs - Constitutional Vitals: Temp Pulse Resp BP Pulse Ox 98.9 F 83 20 157/69 99 10/23/16 23:20 10/23/16 23:20 10/23/16 23:20 10/23/16 23:20 10/23/16 23:20 General appearance: Present: no acute distress, well-nourished Results - Labs CBC & Chem 7: 10/21/16 16:30 10/23/16 05:18 Labs: Laboratory Last Values WBC 5.4 K/mm3 (4.5-11.0) 10/21/16 16:30 RBC 3.13 M/mm3 (3.65-5.03) L 10/21/16 16:30 Hgb 8.1 gm/dl (10.1-14.3) L 10/21/16 16:30 Hct 26.4 % (30.3-42.9) L 10/21/16 16:30 MCV 84 fl (79-97) 10/21/16 16:30 MCH 26 pg (28-32) L 10/21/16 16:30 MCHC 31 % (30-34) 10/21/16 16:30 RDW 18.2 % (13.2-15.2) H 10/21/16 16:30 Plt Count 185 K/mm3 (140-440) 10/21/16 16:30 Lymph % (Auto) 9.0 % (13.4-35.0) L 10/21/16 16:30 [place] % (Auto) 13.2 % (0.0-7.3) H 10/21/16 16:30 Eos % (Auto) 2.8 % (0.0-4.3) 10/21/16 16:30 Baso % (Auto) 0.7 % (0.0-1.8) 10/21/16 16:30 Lymph # 0.5 K/mm3 (1.2-5.4) L 10/21/16 16:30 [place] # 0.7 K/mm3 (0.0-0.8) 10/21/16 16:30 Eos # 0.2 K/mm3 (0.0-0.4) 10/21/16 16:30 Baso # 0.0 K/mm3 (0.0-0.1) 10/21/16 16:30 Seg Neutrophils % 74.3 % (40.0-70.0) H 10/21/16 16:30 Seg Neutrophils # 4.0 K/mm3 (1.8-7.7) 10/21/16 16:30 Sodium 142 mmol/L (137-145) 10/23/16 05:18 Potassium 3.9 mmol/L (3.6-5.0) 10/23/16 05:18 Chloride 100.5 mmol/L (98-107) 10/23/16 05:18 Carbon Dioxide 28 mmol/L (22-30) 10/23/16 05:18 Anion Gap 17 mmol/L 10/23/16 05:18 BUN 29 mg/dL (7-17) H 10/23/16 05:18 Creatinine 4.3 mg/dL (0.7-1.2) H 10/23/16 05:18 Estimated GFR 12 ml/min 10/23/16 05:18 BUN/Creatinine Ratio 6.74 % 10/23/16 05:18 Glucose 93 mg/dL (65-100) 10/23/16 05:18 POC Glucose 89 (70-105) 10/24/16 05:32 Calcium 8.4 mg/dL (8.4-10.2) 10/23/16 05:18 Phosphorus 4.5 mg/dL (2.5-4.5) 10/23/16 05:18 Magnesium 2.1 mg/dL (1.7-2.3) 10/21/16 16:30 Total Bilirubin 0.4 mg/dL (0.1-1.2) 10/21/16 16:30 Direct Bilirubin < 0.2 mg/dL (0-0.2) 10/21/16 16:30 Indirect Bilirubin 0.2 mg/dL 10/21/16 16:30 AST 32 units/L (5-40) 10/21/16 16:30 ALT 19 units/L (7-56) 10/21/16 16:30 Alkaline Phosphatase 94 units/L (35-129) 10/21/16 16:30 Troponin T < 0.010 ng/mL (0.00-0.029) 10/21/16 16:30 Total Protein 7.2 g/dL (6.3-8.2) 10/21/16 16:30 Albumin 3.4 g/dL (3.9-5) L 10/21/16 16:30 Albumin/Globulin Ratio 0.9 % 10/21/16 16:30 Urine Color Straw (Yellow) 10/21/16 16:00 Urine Turbidity Clear (Clear) 10/21/16 16:00 Urine pH 9.0 (5.0-7.0) H 10/21/16 16:00 Ur Specific [place] 1.006 (1.003-1.030) 10/21/16 16:00 Urine Protein 100 mg/dl mg/dL (Negative) 10/21/16 16:00 Urine Glucose (UA) Neg mg/dL (Negative) 10/21/16 16:00 Urine Ketones Neg mg/dL (Negative) 10/21/16 16:00 Urine Blood Neg (Negative) 10/21/16 16:00 Urine Nitrite Neg (Negative) 10/21/16 16:00 Urine Bilirubin Neg (Negative) 10/21/16 16:00 Urine Urobilinogen < 2.0 mg/dL (<2.0) 10/21/16 16:00 Ur Leukocyte Esterase Neg (Negative) 10/21/16 16:00 Urine WBC (Auto) 1.0 /HPF (0.0-6.0) 10/21/16 16:00 Urine RBC (Auto) 1.0 /HPF (0.0-6.0) 10/21/16 16:00 U Epithel Cells (Auto) 1.0 /HPF (0-13.0) 10/21/16 16:00
--- NOTE | 2016-10-24 08:56 | Event Note ---
Date: 10/24/16 Patient was discharged home yesterday but was returned back because there was nobody at home. Today she was seen and examined. Arrangements confirmed, and she is going home today. Total time spent on discharge, 35 mins.
[2016-10-24] MEDS: PHOSLO PO SCH (09:03)
[2016-10-24] MEDS: ROCALTROL PO SCH (10:08)
[2016-10-24] MEDS: PEPCID PO SCH (10:08)
[2016-10-24] MEDS: NORVASC PO SCH (10:08)
[2016-10-24] MEDS: HEPARIN SUB-Q SCH (10:09)
[2016-10-24] MEDS: COREG PO SCH (10:09)
[2016-10-24 10:10] VITALS: BP 193/87
== END 2016-10-24 10:42 | disposition home health service (06) | DRG 917 ==
LOC: ED 15:13 → 3A 19:01
PROVIDERS: ADMIT Hospitalist; ATTEND Internal Medicine
PROC: 5A1D00Z (ICD-10-PCS; principal; 2016-10-21)
DX: T38.3X1A Poisoning by insulin and oral hypoglycemic [antidiabetic] drugs, accidental (unintentional), initial encounter (principal); G93.41 Metabolic encephalopathy; N18.6 End stage renal disease; I13.2 Hypertensive heart and chronic kidney disease with heart failure and with stage 5 chronic kidney disease, or end stage renal disease; I50.22 Chronic systolic (congestive) heart failure; N17.9 Acute kidney failure, unspecified; D63.1 Anemia in chronic kidney disease; E16.2 Hypoglycemia, unspecified; J44.9 Chronic obstructive pulmonary disease, unspecified; M19.90 Unspecified osteoarthritis, unspecified site; J45.909 Unspecified asthma, uncomplicated; E11.22 Type 2 diabetes mellitus with diabetic chronic kidney disease; Z99.2 Dependence on renal dialysis; Z93.3 Colostomy status; Z86.718 Personal history of other venous thrombosis and embolism; Z98.890 Other specified postprocedural states; Z87.891 Personal history of nicotine dependence; Z79.84 Long term (current) use of oral hypoglycemic drugs; Z82.49 Family history of ischemic heart disease and other diseases of the circulatory system
CPT/HCPCS: 36415; 70450; 71010; 73521; 80048; 80074; 81001; 82962; 83735; 84100; 84484; 85025; J0360; J0885; J1644; J7030; J7070

== ENCOUNTER 2016-10-29 21:10 | Inpatient (IN) | payer MEDICARE ==
--- NOTE | 2016-10-29 21:48 | Emergency Department Report ---
ED Back Pain/Injury HPI - General Stated Complaint: BACK PAIN Time Seen by Provider: 10/29/16 21:26 Source: patient Mode of arrival: Ambulatory Limitations: No Limitations - History of Present Illness Initial Comments: 85-year-old female with a past medical history CHF, diabetes, hypertension, end- stage disease on dialysis Sunday, Sunday, Sunday, anemia, and colostomy for perforated bowel presents to the hospital complaints of back and right sided pain 1 week. Daughter reports that patient fell one week ago causing the injury. Patient was just admitted here October 21 to the for hypoglycemia. Daughter state Patient had mild back pain at that time but states it acutely worsened the last several days. Patient attempted to go to dialysis on Sunday but it was unable to be performed due to significant pain. She also complains of some mild mental status changes and that patient was supposed to change her colostomy and instead of changing it just kept it on and putting tissues in towels around the bag attachment site. She reports the patient does have some mild urine output. No reports of fevers, head injury, or LOC. Patient started dialysis during early October admission for worsening renal function. - Related Data Home Medications Medication Instructions Recorded Confirmed Last Taken Mirtazapine 7.5 mg PO QHS 09/28/16 10/21/16 09/28/16 Calcium Acetate [Phoslo] 667 mg PO TID 10/21/16 10/21/16 Unknown Carvedilol [Coreg] 12.5 mg PO BID 10/21/16 10/21/16 Unknown Previous Rx's Medication Instructions Recorded Last Taken Type Albuterol Sulfate [Ventolin HFA] 2 puff IH Q4H PRN #1 pump 10/09/16 Unknown Rx Calcitriol [Rocaltrol] 0.25 mcg PO QDAY #30 capsule 10/09/16 Unknown Rx Famotidine [Pepcid] 20 mg PO BID #60 tablet 10/09/16 Unknown Rx amLODIPine [Norvasc] 10 mg PO DAILY #30 tablet 10/09/16 Unknown Rx Allergies Allergy/AdvReac Type Severity Reaction Status Date / Time No Known Allergies Allergy Verified 03/18/15 10:53 ED Review of Systems ROS: Stated complaint: BACK PAIN Other details as noted in HPI Comment: Unobtainable due to pts medical conditions Other: Patient is not forthcoming of information and just moans in pain ED Past Medical Hx - Past Medical History Hx Hypertension: Yes Hx Congestive Heart Failure: Yes Hx Deep Vein Thrombosis: Yes Hx Renal Disease: Yes Hx Arthritis: Yes Hx Asthma: Yes Hx COPD: Yes Additional medical history: Anemia requiring blood transfusion - Surgical History Additional Surgical History: FILTER FOR CLOTS. 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 - Social History Smoking Status: Former Smoker - Medications Home Medications: Home Medications Medication Instructions Recorded Confirmed Last Taken Type Mirtazapine 7.5 mg PO QHS 09/28/16 10/21/16 09/28/16 History Albuterol Sulfate [Ventolin HFA] 2 puff IH Q4H PRN #1 pump 10/09/16 10/21/16 Unknown Rx Calcitriol [Rocaltrol] 0.25 mcg PO QDAY #30 capsule 10/09/16 10/21/16 Unknown Rx Famotidine [Pepcid] 20 mg PO BID #60 tablet 10/09/16 10/21/16 Unknown Rx amLODIPine [Norvasc] 10 mg PO DAILY #30 tablet 10/09/16 10/21/16 Unknown Rx Calcium Acetate [Phoslo] 667 mg PO TID 10/21/16 10/21/16 Unknown History Carvedilol [Coreg] 12.5 mg PO BID 10/21/16 10/21/16 Unknown History ED Physical Exam - Other Other exam information: General: No limitations, patient is alert Head exam: Atraumatic, normocephalic Eyes exam: Normal appearance ENT: Moist mucous membrane, normal oropharynx Neck exam: Normal inspection, full range of motion, no meningismus nontender Respiratory exam: Clear to auscultation bilateral, no wheezes, rales, crackles Cardiovascular: Normal rate and rhythm, dialysis cath to right chest wall Abdomen: Soft, nondistended, right upper quadrant and right mid abdomen pain, with normal bowel sounds, no rebound, or guarding Extremity: Full range of motion normal inspection no deformity Back: Normal Inspection, full range of motion, unclear patient has midline tenderness and she is constantly moaning Neurologic: Alert, no facial droop, no gross motor or sensory Psychiatric: normal affect, normal mood Skin: Warm, dry, intact, no bruising ED Course Vital Signs 10/29/16 10/29/16 10/29/16 21:20 21:46 22:00 Temperature 98.9 F Pulse Rate 97 H 95 H Respiratory 12 11 L Rate Blood Pressure 121/74 144/64 O2 Sat by Pulse 98 98 98 Oximetry 10/29/16 10/29/16 10/30/16 23:00 23:52 00:00 Temperature Pulse Rate 99 H 98 H Respiratory 13 16 14 Rate Blood Pressure 153/70 128/65 O2 Sat by Pulse 98 92 Oximetry 10/30/16 00:31 Temperature Pulse Rate Respiratory 18 Rate Blood Pressure O2 Sat by Pulse 98 Oximetry - Reevaluation(s) Reevaluation #1: 10/30/16 00:20 Pain improved after morphine 4 mg and Zofran. - Consultations Consultation #1: 10/30/16 01:08 case d/w Dr Morley, rec admission and empiric abx ED Medical Decision Making - Lab Data Result diagrams: 10/29/16 22:13 10/29/16 22:13 sodium: 138, K 3.9, CHL 93.7 Ag 23 Lab Results 10/29/16 10/29/16 10/30/16 Range/Units 22:13 22:13 00:30 WBC 17.3 H (4.5-11.0) K/mm3 RBC 3.34 L (3.65-5.03) M/mm3 Hgb 8.9 L (10.1-14.3) gm/dl Hct 28.3 L (30.3-42.9) % MCV 85 (79-97) fl MCH 27 L (28-32) pg MCHC 32 (30-34) % RDW 18.4 H (13.2-15.2) % Plt Count 480 H (140-440) K/mm3 Add Manual Diff Complete Total Counted 100 Seg Neuts % (Manual) 93.0 H (40.0-70.0) % Band Neutrophils % 0 % Lymphocytes % (Manual) 3.0 L (13.4-35.0) % Reactive Lymphs % (Man) 0 % Monocytes % (Manual) 4.0 (0.0-7.3) % Eosinophils % (Manual) 0 (0.0-4.3) % Basophils % (Manual) 0 (0.0-1.8) % Metamyelocytes % 0 % Myelocytes % 0 % Promyelocytes % 0 % Blast Cells % 0 % Nucleated RBC % Not Reportable Seg Neutrophils # Man 16.1 H (1.8-7.7) K/mm3 Band Neutrophils # 0.0 K/mm3 Lymphocytes # (Manual) 0.5 L (1.2-5.4) K/mm3 Abs React Lymphs (Man) 0.0 K/mm3 Monocytes # (Manual) 0.7 (0.0-0.8) K/mm3 Eosinophils # (Manual) 0.0 (0.0-0.4) K/mm3 Basophils # (Manual) 0.0 (0.0-0.1) K/mm3 Metamyelocytes # 0.0 K/mm3 Myelocytes # 0.0 K/mm3 Promyelocytes # 0.0 K/mm3 Blast Cells # 0.0 K/mm3 WBC Morphology Not Reportable Hypersegmented Neuts Not Reportable Hyposegmented Neuts Not Reportable Hypogranular Neuts Not Reportable Smudge Cells Not Reportable Toxic Granulation Not Reportable Toxic Vacuolation Not Reportable Dohle Bodies Not Reportable Pelger-Huet Anomaly Not Reportable Aida Rods Not Reportable Platelet Estimate Consistent w auto Clumped Platelets Not Reportable Plt Clumps, EDTA Not Reportable Large Platelets Not Reportable Giant Platelets Not Reportable Platelet Satelliting Not Reportable Plt Morphology Comment Not Reportable RBC Morphology Not Reportable Dimorphic RBCs Not Reportable Polychromasia Not Reportable Hypochromasia Not Reportable Poikilocytosis Not Reportable Anisocytosis 1+ Microcytosis Not Reportable Macrocytosis Not Reportable Spherocytes Not Reportable Pappenheimer Bodies Not Reportable Sickle Cells Not Reportable Target Cells Not Reportable Tear Drop Cells Not Reportable Ovalocytes Not Reportable Helmet Cells Not Reportable [place] Bodies Not Reportable [place] Rings Not Reportable Bernard Cells Not Reportable Bite Cells Not Reportable Crenated Cell Not Reportable Elliptocytes Not Reportable Acanthocytes (Spur) Not Reportable Rouleaux Not Reportable Hemoglobin C Crystals Not Reportable Schistocytes Not Reportable Malaria parasites Not Reportable Jalil Bodies Not Reportable Hem Pathologist Commnt No Carbon Dioxide 25 (22-30) mmol/L BUN 51 H (7-17) mg/dL Creatinine 6.8 H (0.7-1.2) mg/dL Estimated GFR 7 ml/min BUN/Creatinine Ratio 7.50 % Glucose 151 H (65-100) mg/dL Calcium 9.0 (8.4-10.2) mg/dL Total Bilirubin 0.6 (0.1-1.2) mg/dL AST 24 (5-40) units/L ALT 11 (7-56) units/L Alkaline Phosphatase 121 (35-129) units/L Total Protein 8.0 (6.3-8.2) g/dL Albumin 3.1 L (3.9-5) g/dL Albumin/Globulin Ratio 0.6 % Urine Color Yellow (Yellow) Urine Turbidity Slightly-cloudy (Clear) Urine pH 5.0 (5.0-7.0) Ur Specific [place] 1.015 (1.003-1.030) Urine Protein 100 mg/dl (Negative) mg/dL Urine Glucose (UA) Neg (Negative) mg/dL Urine Ketones Tr (Negative) mg/dL Urine Blood Neg (Negative) Urine Nitrite Neg (Negative) Urine Bilirubin Neg (Negative) Urine Urobilinogen < 2.0 (<2.0) mg/dL Ur Leukocyte Esterase Neg (Negative) Urine WBC (Auto) 10.0 H (0.0-6.0) /HPF Urine RBC (Auto) 2.0 (0.0-6.0) /HPF U Epithel Cells (Auto) 6.0 (0-13.0) /HPF Amorphous Crystals 1+ Hyaline Casts 16 /LPF Granular Casts 4 /LPF Urine Mucus Few /HPF - Radiology Data Radiology results: report reviewed, image reviewed (chest x-ray portable: No acute findings) CT abdomen and pelvis noncontrast: Cholelithiasis with borderline gall bladder wall thickening. Large peristoma hernia no obstruction or barb inflammatory bowel changes. 1.1 cm hyperdense left renal cysts. Degenerative changes of the lower spine. Bony pelvis is grossly intact. Ultrasound gallbladder: Gallbladder is filled with stones. No barb pericholecystic fluid or Moses Deshawn limitation. No barb inflammatory changes - Medical Decision Making Blood culture ordered given that patient has a dialysis catheter in her chest wall and elevated WBC count. No signs of cholecystitis or other infectious source or knee. No fracture identified. The leukocytosis may also be due to stress and pain reaction however per rec of Renal will admit for further tx - Differential Diagnosis fracture, contusion, sprain, uremia, hyperkalemia, bilary colic Critical Care Time: No Critical care attestation.: If time is entered above; I have spent that time in minutes in the direct care of this critically ill patient, excluding procedure time. ED Disposition Clinical Impression: End-stage renal disease (ESRD), Colostomy in place, Biliary colic, Leukocytosis (leucocytosis) Disposition: OP ADMITTED IP TO THIS HOSP Is pt being admited?: Yes Condition: Stable Time of Disposition: 01:22
[2016-10-29] MEDS ORDERED: ZOFRAN IV ONE (22:00)
[2016-10-29] MEDS ORDERED: MORPHINE IV ONE (22:00)
[2016-10-29 22:43] LABS: Hematocrit 28.3 % (30.3-42.9); Hemoglobin 8.9 gm/dl (10.1-14.3); Mean Corpuscular HGB Conc 32 % (30-34); Mean Corpuscular Hemoglobin 27 pg (28-32); Mean Corpuscular Volume 85 fl (79-97); Platelet Count 480 K/mm3 (140-440); Red Blood Count 3.34 M/mm3 (3.65-5.03); Red Cell Distribution Width 18.4 % (13.2-15.2); White Blood Count 17.3 K/mm3 (4.5-11.0)
[2016-10-29 22:56] LABS: Albumin 3.1 g/dL (3.9-5); Albumin/Globulin Ratio 0.6 %; BUN/Creatinine Ratio 7.5; Bilirubin,Total 0.6 mg/dL (0.1-1.2); Chloride 93.7 mmol/L (98-107); Potassium 3.9 mmol/L (3.6-5.0)
--- NOTE | 2016-10-29 22:57 | Cat Scan Report ---
FINAL REPORT EXAM: CT ABDOMEN PELVIS WO CON HISTORY: r abd pain, r back pain, fall hx, colostomy COMPARISON: None available. TECHNIQUE: Contiguous axial images were obtained. Additional sagittal and coronal reformatted images were obtained. FINDINGS: Mild linear scarring or atelectasis at the lung bases. Mild cardiac enlargement. Cholelithiasis. Borderline gallbladder wall thickening. Liver, spleen, pancreas are grossly unremarkable. Mild thickening of the adrenal glands. No nephrolithiasis or hydronephrosis. Mild wall thickening of the left renal pelvis. At the inferior margin left kidney there is a hyperdense lesion most compatible with hemorrhagic or proteinaceous cyst measuring 1.1 x 0.8 centimeters. Infrarenal IVC filter is in place. Aorta is normal in caliber. Mild calcification of the aorta. No distal ureteral urinary bladder calculi. Uterus and ovaries are grossly unremarkable. Ostomy exits the left mid abdomen. There is a large peristomal hernia containing fat and bowel. Hernia sac measures 18 x 8 centimeters in axial dimension. No associated bowel obstruction. Prior surgery involving the sigmoid colon with anastomosis. Fluid-like stool within the rectosigmoid colon. Moderate degenerative changes of lumbar spine. Bony pelvis is grossly intact. IMPRESSION: No gross acute abdominal or pelvic organ injury. Cholelithiasis. Borderline gallbladder wall thickening. Mild inflammation of gallbladder cannot be excluded by CT. If the patient has right upper quadrant pain, abdominal ultrasound or nuclear medicine HIDA scan may be of benefit. Colostomy exits the left mid abdomen. There is a large peristomal hernia. No bowel obstruction. No barb inflammatory changes of the bowel. 1.1 centimeter hyperdense left renal cyst. No obstructive uropathy. Borderline wall thickening the left renal pelvis. This may relate to sequelae of prior inflammation. No obstructive uropathy or urolithiasis. Correlation with urinalysis suggested to ensure no subtle inflammation.
[2016-10-29 23:11] LABS: Basophils % (Manual) 0 % (0.0-1.8); Blastocytes % (Manual) 0 %; Eosinophils % (Manual) 0 % (0.0-4.3)
[2016-10-29 23:12] LABS: Anisocytosis 1+; Diff Status Complete; Platelet Estimate Consistent w Auto
--- NOTE | 2016-10-29 23:47 | Ultrasound Report ---
FINAL REPORT EXAM: US ABDOMEN LIMITED HISTORY: ruq pain COMPARISON: CT of the abdomen and pelvis from the same date. TECHNIQUE: Several real-time grayscale and color Doppler images were obtained. FINDINGS: Visualized liver and pancreas are homogeneous in echogenicity. Visualized aorta is normal in caliber. Proximal aorta measures 1.6 centimeters in diameter. Right kidney measures 11.8 centimeters in length. Cortex 1.7 centimeters. No hydronephrosis or gross focal renal lesion. No biliary dilatation. The common bile duct measures 4 millimeters. There are shadowing gallstones filling the gallbladder. This limits evaluation of gallbladder wall thickening. IMPRESSION: Gallbladder is filled with stones. No barb pericholecystic fluid or biliary dilatation. No barb inflammatory changes the gallbladder by ultrasound although there limited evaluation of gallbladder wall thickness due to shadowing gallstones. Correlation for right upper quadrant pain. No other acute findings.
[2016-10-30 00:49] LABS: Bilirubin,Urine NEG (Negative); Blood,Urine NEG (Negative); Granular Casts,Urine 4 /LPF; Ketones,Urine TR mg/dL (Negative); Leukocyte Esterase,Urine NEG (Negative); Mucus,Urine FEW /HPF; Nitrite,Urine NEG (Negative); Urobilinogen,Urine < 2.0 mg/dL (<2.0)
[2016-10-30] MEDS ORDERED: VANCOMYCIN/NS 1 GM/250 ML 250 ML IV ONE (01:07)
[2016-10-30] MEDS ORDERED: APRESOLINE IV PRN (02:43)
[2016-10-30] MEDS ORDERED: ROCEPHIN/NS 1 GM/50 ML 50 ML IV SCH ×4 (03:05→10:00)
--- NOTE | 2016-10-30 03:56 | History and Physical Report ---
History of Present Illness Date of examination: 10/30/16 History of present illness: 85-year-old woman with a history of hypertension, diabetes, end-stage renal disease on dialysis, CHF who was just discharged from the hospital on October 24 comes back with abdominal pain. The patient is a very poor historian, unable to get much information from the patient, in addition she is sedated from the IV morphine given. Pain is in the right side of the belly, further information cannot be elicited. Other review of system extremely difficult to obtain PAST SURGICAL HISTORY: Colostomy SOCIAL HISTORY: No alcohol, tobacco, drugs FAMILY HISTORY: Hypertension Medications and Allergies Allergies Allergy/AdvReac Type Severity Reaction Status Date / Time No Known Allergies Allergy Verified 03/18/15 10:53 Home Medications Medication Instructions Recorded Confirmed Last Taken Type Mirtazapine 7.5 mg PO QHS 09/28/16 10/30/16 09/28/16 History Albuterol Sulfate [Ventolin HFA] 2 puff IH Q4H PRN #1 pump 10/09/16 10/30/16 Unknown Rx Calcitriol [Rocaltrol] 0.25 mcg PO QDAY #30 capsule 10/09/16 10/30/16 Unknown Rx Famotidine [Pepcid] 20 mg PO BID #60 tablet 10/09/16 10/30/16 Unknown Rx amLODIPine [Norvasc] 10 mg PO DAILY #30 tablet 10/09/16 10/30/16 Unknown Rx Calcium Acetate [Phoslo] 667 mg PO TID 10/21/16 10/30/16 Unknown History Carvedilol [Coreg] 12.5 mg PO BID 10/21/16 10/30/16 Unknown History Active Meds: Active Medications Hydralazine HCl (Apresoline) 5 mg IV Q6H PRN PRN Reason: Hypertension Ceftriaxone Sodium (Rocephin/Ns 1 Gm/50 Ml) 50 mls @ 100 mls/hr IV ONCE ONE PRN Reason: Protocol Stop: 10/30/16 04:29 Ceftriaxone Sodium (Rocephin/Ns 1 Gm/50 Ml) 50 mls @ 100 mls/hr IV Q24HR YAMILETH PRN Reason: Protocol Exam - Physical Exam Narrative exam: Gen. appearance: Patient lying in bed, no apparent distress HEENT: Normocephalic, atraumatic, pupils equally round and reactive to light, extraocular movement intact, and no sclericterus,. No JVD or thyromegaly or nodule,neck supple, no carotid bruit ,mucous membranes moist, no exudate or erythema Heart: S1, S2, regular rate and rhythm Lungs: Clear to auscultation bilaterally, breathing comfortable Abdomen: Positive bowel sounds, tender on the right side, nondistended, no organomegaly Extremity: No edema, cyanosis, clubbing Skin: No rash, nodules, warm, dry Neuro: Oriented 3, cranial nerves II-12 intact, speech is fluent, motor and sensory intact - Constitutional Vitals: Temp Pulse Resp BP Pulse Ox 98.9 F 98 H 18 128/65 98 10/29/16 21:20 10/30/16 00:00 10/30/16 00:31 10/30/16 00:00 10/30/16 00:31 Results - Labs CBC & Chem 7: 11/05/16 03:18 11/05/16 03:18 Labs: Abnormal lab results 10/29/16 10/29/16 10/30/16 Range/Units 22:13 22:13 00:30 WBC 17.3 H (4.5-11.0) K/mm3 RBC 3.34 L (3.65-5.03) M/mm3 Hgb 8.9 L (10.1-14.3) gm/dl Hct 28.3 L (30.3-42.9) % MCH 27 L (28-32) pg RDW 18.4 H (13.2-15.2) % Plt Count 480 H (140-440) K/mm3 Seg Neuts % (Manual) 93.0 H (40.0-70.0) % Lymphocytes % (Manual) 3.0 L (13.4-35.0) % Seg Neutrophils # Man 16.1 H (1.8-7.7) K/mm3 Lymphocytes # (Manual) 0.5 L (1.2-5.4) K/mm3 BUN 51 H (7-17) mg/dL Creatinine 6.8 H (0.7-1.2) mg/dL Glucose 151 H (65-100) mg/dL Albumin 3.1 L (3.9-5) g/dL Urine WBC (Auto) 10.0 H (0.0-6.0) /HPF - Imaging and Cardiology CT scan - abdomen: report reviewed CT scan - pelvis: report reviewed US - abdomen: report reviewed Assessment and Plan Abdominal pain most lkely cholecystitis SIRS Hypertension Diabetes of 2 End-stage renal disease on dialysis CHF, stable Admits medicine Start IV morphine, consult surgery Start IV Rocephin, follow cultures, consult renal Check fingersticks and initiate insulin sliding scale Continue appropriate outpatient medications and start DVT prophylaxis
[2016-10-30] MEDS ORDERED: ROCEPHIN/NS 1 GM/50 ML 50 ML IV ONE (04:00)
[2016-10-30] MEDS ORDERED: TYLENOL PO PRN (04:24)
[2016-10-30] MEDS ORDERED: DULCOLAX PR PRN (04:24)
[2016-10-30] MEDS ORDERED: MILK OF MAGNESIA PO PRN (04:24)
--- NOTE | 2016-10-30 09:02 | Event Note ---
Date: 10/30/16 Pt seen and examined, films, records reviewed, leave NPO, change to Zosyn iv, HIDA scan ordered, NPO.
--- NOTE | 2016-10-30 09:03 | Event Note ---
Date: 10/30/16 Patient admitted for sepsis, abdominal pain, Surgery evaluated her her HIDA scan and rocephin is changed to ZOSYN.
--- NOTE | 2016-10-30 09:24 | XRay Report ---
AP CHEST HISTORY: Shortness of breath, missed dialysis. FINDINGS: Compared to 10/21/16. Heart size is borderline to mildly increased. Lungs are clear. No evidence for pleural effusion, infiltrate or pneumothorax. Right IJ dialysis catheter remains in good position. IMPRESSION: Borderline to mild cardiomegaly. Lungs clear.
--- NOTE | 2016-10-30 09:41 | Admit Criteria Form ---
Admission Criteria Documentation: RENAL FAILURE, CHRONIC Clinical Indications for Admission to Inpatient Care (Place 'X' for any and all applicable criteria): Admission is indicated for ANY ONE of the following (1)(2)(3)(4)(5): [X]I. Inpatient admission required rather than observation care (Use Renal Failure, Chronic: Observation Care Criteria as appropriate) because of ANY ONE of the following: [ ]a) Volume overload or uremic symptoms (eg, clinically significant pulmonary edema, hypertension, pericarditis, acidosis) too severe for, or not responsive (eg, for over 24 hours) to emergency department or observation care dialysis or treatment regimen (11) [ ]b) Hemodynamic instability that is severe or persistent [ ]c) Respiratory distress that is severe or persistent (11) [X]d) Clinically significant electrolyte abnormality that requires inpatient care (eg,hyperkalemia with severe ECG findings)[B] [ ]e) Supplement O2 or respiratory therapy for over 24hrs that is performable only in acute inpatient setting [ ]f) Continuous IV infusion of anticoagulation, platelet inhibitor, vasoactive, or Antiarrhythmic medication (15), [ ]g) Pulmonary artery catheter monitoring [ ]h) Temporary pacemaker placement [ ]i) Emergent pericardiocentesis [X]j) Other condition, treatment or monitoring requiring inpatient admission [ ]II. Unexplained syncope [A] [ ]III. Recurrent seizures [ ]IV. Severe infections not treatable in outpatient setting (eg, peritonitis)(9 ) [ ]V. Cardiac arrhythmias of immediate concern [ ]. Encephalopathy [ ]VII.Bleeding abnormalities (eg, platelet dysfunction) with active (eg, gastrointestinal) bleeding Extended stay beyond goal length of stay may be needed for (3)(4)(35)(36): [ ]a) Continuing uremic complications [ ]b) Comorbidities or complications The original [employer] content created by [employer] has been revised. The portions of the content which have been revised are identified through the use of italic text or in bold, and [email or web address] has neither reviewed nor approved the modified material. All other unmodified content is copyright [employer]. Please see references footnoted in the original [email or web address] edition 2016 Admission Criteria Met: Yes
[2016-10-30] MEDS ORDERED: NACL 0.9% 1000 ML 100 ML IV PRN (09:46)
[2016-10-30] MEDS ORDERED: ZOSYN/NS 4.5GM/100ML 100 ML IV SCH (10:00)
[2016-10-30 10:02] LABS: Hematocrit 26.5 % (30.3-42.9); Hemoglobin 7.9 gm/dl (10.1-14.3); Mean Corpuscular HGB Conc 30 % (30-34); Mean Corpuscular Volume 85 fl (79-97); Platelet Count 460 K/mm3 (140-440); Red Blood Count 3.11 M/mm3 (3.65-5.03); Red Cell Distribution Width 18.2 % (13.2-15.2)
[2016-10-30 10:04] LABS: Mean Corpuscular Hemoglobin 25 pg (28-32)
[2016-10-30 10:15] LABS: BUN/Creatinine Ratio 8.13; Chloride 97.4 mmol/L (98-107); Potassium 3.9 mmol/L (3.6-5.0)
[2016-10-30 10:45] LABS: Anisocytosis 1+; Blastocytes % (Manual) 0 %; Eosinophils % (Manual) 0 % (0.0-4.3); Hypochromasia 1+; Platelet Clumps Few
[2016-10-30 10:46] LABS: Dohle Bodies Rare
[2016-10-30 10:47] LABS: Diff Status Complete; Large Platelets Rare; Platelet Estimate Consistent w Auto; Polychromasia Rare
[2016-10-30] MEDS: LOVENOX SUB-Q SCH (11:47)
[2016-10-30] MEDS: ZOSYN/NS 2.25 GM/50ML 50 ML IV SCH ×3 (11:47→21:13)
[2016-10-30] MEDS ORDERED: HEPARIN IV PRN (13:35)
--- NOTE | 2016-10-30 14:08 | Progress Note ---
Objective - Vital Signs Vital signs: Vital Signs - 12hr 10/30/16 10/30/16 10/30/16 03:00 04:00 04:14 Temperature Pulse Rate 95 H 92 H 94 H Pulse Rate [ Left Radial] Respiratory 11 L 15 11 L Rate Blood Pressure 121/48 117/58 117/58 Blood Pressure [Left Arm] O2 Sat by Pulse 98 100 94 Oximetry 10/30/16 10/30/16 10/30/16 05:00 07:22 07:42 Temperature 98.9 F Pulse Rate 93 H Pulse Rate [ 87 Left Radial] Respiratory 10 L 16 Rate Blood Pressure 119/51 Blood Pressure 116/59 [Left Arm] O2 Sat by Pulse 93 94 94 Oximetry 10/30/16 10/30/16 10/30/16 08:07 13:00 13:15 Temperature 98.4 F 98.4 F Pulse Rate 83 80 Pulse Rate [ 85 Left Radial] Respiratory 16 20 Rate Blood Pressure 137/63 138/60 Blood Pressure 119/61 [Left Arm] O2 Sat by Pulse 97 Oximetry 10/30/16 10/30/16 13:30 13:45 Temperature Pulse Rate 86 89 Pulse Rate [ Left Radial] Respiratory Rate Blood Pressure 127/66 118/58 Blood Pressure [Left Arm] O2 Sat by Pulse Oximetry - Lab 10/30/16 09:31 10/30/16 09:31 Most recent lab results Calcium 8.0 mg/dL (8.4-10.2) L 10/30/16 09:31
--- NOTE | 2016-10-30 14:54 | Nuclear Medicine Report ---
HEPATOBILIARY SCAN: History: Abdominal pain. Comparison: Ultrasound right upper quadrant and CT abdomen performed 10/29/16. Findings: There is normal uptake and excretion of the radiotracer by the liver parenchyma. No focal liver defect. There is normal appearance of the radiotracer in the central biliary ducts, common bile duct and small bowel loops. There is no convincing identification of the gallbladder out to 2 hours. Correlation with ultrasound and CT demonstrate a gallbladder packed with gallstones. CCK was not administered. IMPRESSION: Nonvisualization of the gallbladder out to 2 hours. Acute cholecystitis cannot be excluded.
[2016-10-30] MEDS: MORPHINE IV PRN (21:10)
--- NOTE | 2016-10-30 21:23 | Consultation ---
History of Present Illness - Reason for Consult Consult date: 10/30/16 end stage renal disease Requesting physician: SEAN LOUIS - History of Present Illness 85-year-old female known to our practice from previous hospitalizations, with hx of hypertension and chronic systolic heart failure, ESRD on HD on MWF schedule admitted after she presented with right sided abdominal pain of 1 week duration. Per family patient fell one week ago causing low back injury. Patient attempted to go to dialysis on Sunday but it was unable to be performed due to significant pain. Family also noted associated mental status changes. No aggravating or relieving factors. No N/V/D. 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 denies: smoking (quit smoking 6 years ago), alcohol abuse, prescription drug abuse Family history: CAD (mother of heart disease at age 77), hypertension, other (father of old age in his 90s) Medications and Allergies Allergies Allergy/AdvReac Type Severity Reaction Status Date / Time No Known Allergies Allergy Verified 03/18/15 10:53 Home Medications Medication Instructions Recorded Confirmed Last Taken Type Mirtazapine 7.5 mg PO QHS 09/28/16 10/30/16 09/28/16 History Albuterol Sulfate [Ventolin HFA] 2 puff IH Q4H PRN #1 pump 10/09/16 10/30/16 Unknown Rx Calcitriol [Rocaltrol] 0.25 mcg PO QDAY #30 capsule 10/09/16 10/30/16 Unknown Rx Famotidine [Pepcid] 20 mg PO BID #60 tablet 10/09/16 10/30/16 Unknown Rx amLODIPine [Norvasc] 10 mg PO DAILY #30 tablet 10/09/16 10/30/16 Unknown Rx Calcium Acetate [Phoslo] 667 mg PO TID 10/21/16 10/30/16 Unknown History Carvedilol [Coreg] 12.5 mg PO BID 10/21/16 10/30/16 Unknown History Active Meds: Active Medications Acetaminophen (Tylenol) 650 mg PO Q4H PRN PRN Reason: Pain MILD(1-3)/Fever >100.5/LEBRON Bisacodyl (Dulcolax) 10 mg [place] QDAY PRN PRN Reason: Constipation unrelieved by MOM Enoxaparin Sodium (Lovenox) 30 mg SUB-Q QDAY [facility] Last Admin: 10/30/16 11:47 Dose: Not Given Heparin Sodium (Porcine) (Heparin) 5,000 unit IV MERE PRN PRN Reason: hemodialysis Last Admin: 10/30/16 19:18 Dose: 5,000 unit Hydralazine HCl (Apresoline) 5 mg IV Q6H PRN PRN Reason: Hypertension Piperacillin Sod/Tazobactam Sod (Zosyn/Ns 2.25 Gm/50ml) 50 mls @ 100 mls/hr IV Q8HR [facility] Last Admin: 10/30/16 21:13 Dose: 100 mls/hr Sodium Chloride (Nacl 0.9% 1000 Ml) 100 mls @ 999 mls/hr IV MERE PRN PRN Reason: Hypotension Magnesium Hydroxide (Milk Of Magnesia) 30 ml PO Q4H PRN PRN Reason: Constipation Morphine Sulfate (Morphine) 2 mg IV Q4H PRN PRN Reason: Pain, Moderate (4-6) Last Admin: 10/30/16 21:10 Dose: 2 mg Ondansetron HCl (Zofran) 4 mg IV Q8H PRN PRN Reason: N/V unrelieved by Reglan Review of Systems Constitutional: no weight loss, no weight gain, no fever, no chills Ears, nose, mouth and throat: no ear discharge, no nose pain, no nasal congestion Cardiovascular: shortness of breath, no chest pain, no orthopnea, no palpitations Respiratory: no cough, no cough with sputum Gastrointestinal: abdominal pain, nausea, no vomiting Genitourinary Female: no pelvic pain, no flank pain Musculoskeletal: neck pain, low back pain Integumentary: no rash, no pruritis, no redness Neurological: no head injury, no paralysis, no seizures Psychiatric: change in appetite, no anxiety, no insomnia Endocrine: no cold intolerance, no heat intolerance Hematologic/Lymphatic: no easy bruising, no easy bleeding Exam - Vital Signs Vital signs: Vital Signs Temp BP Pulse Ox 98.9 F 121/74 98 10/29/16 21:20 10/29/16 21:20 10/29/16 21:20 - Physical Exam Narrative exam: G/A: Patient lying in bed, no apparent distress HEENT: Normocephalic, atraumatic, pupils equally round and reactive to light, extraocular movement intact, and no sclericterus,. No JVD or thyromegaly or nodule,neck supple, no carotid bruit ,mucous membranes moist, no exudate or erythema Heart: S1, S2, regular rate and rhythm Lungs: Clear to auscultation bilaterally, breathing comfortable Abdomen: Positive bowel sounds, tender on the right side, nondistended, no organomegaly Extremity: No edema, cyanosis, clubbing Skin: No rash, nodules, warm, dry Neuro: Oriented 3, cranial nerves II-12 intact, speech is fluent, motor and sensory intact Results - Lab Results 10/30/16 09:31 10/30/16 09:31 Most recent lab results Calcium 8.0 mg/dL (8.4-10.2) L 10/30/16 09:31 Assessment and Plan 1. ESRD on HD 2. Abdominal pain 3. Essential HTN 4. Leukocytosis 5. Anemia of ESRD 6. Hx of bowel perf s/p colostomy Plan: -HD on MWF schedule -Antibiotics -F/u on HIDA scan/ U/S -Epogen on dialysis Thank you for the consult
[2016-10-31] MEDS: ZOSYN/NS 2.25 GM/50ML 50 ML IV SCH (06:01)
[2016-10-31 07:30] LABS: Albumin 2.5 g/dL (3.9-5); Albumin/Globulin Ratio 0.6 %; BUN/Creatinine Ratio 6.8; Bilirubin,Total 0.5 mg/dL (0.1-1.2); Calcium 7.7 mg/dL (8.4-10.2); Hematocrit 27.7 % (30.3-42.9); Hemoglobin 8.2 gm/dl (10.1-14.3); Mean Corpuscular HGB Conc 30 % (30-34); Mean Corpuscular Volume 85 fl (79-97); Platelet Count 439 K/mm3 (140-440); Potassium 3.6 mmol/L (3.6-5.0); Red Blood Count 3.25 M/mm3 (3.65-5.03); Red Cell Distribution Width 18.5 % (13.2-15.2)
[2016-10-31 07:57] LABS: Mean Corpuscular Hemoglobin 25 pg (28-32); White Blood Count 20.6 K/mm3 (4.5-11.0)
[2016-10-31] MEDS: LOVENOX SUB-Q SCH (09:16)
[2016-10-31] MEDS: LEVAQUIN 500MG/100ML 100 ML IV SCH (09:20)
[2016-10-31 09:23] LABS: Anisocytosis 1+; Basophils % (Manual) 0 % (0.0-1.8); Blastocytes % (Manual) 0 %; Eosinophils % (Manual) 0 % (0.0-4.3); Hypochromasia 1+; Polychromasia Rare
[2016-10-31 09:24] LABS: Diff Status Complete; Large Platelets Rare
--- NOTE | 2016-10-31 09:25 | Progress Note ---
Assessment and Plan 1. ESRD on HD 2. Abdominal pain 3. Essential HTN 4. Cholelithiasis ? acute cholecystitis 5. Anemia of ESRD 6. Leukocytosis 7. Hx of bowel perf s/p colostomy Plan: -Next HD on Sunday -Antibiotics per primary team -CT A/P, RUQ U/S, HIDA scans reviewed. Her g.b is full of stones ? acute cholecystitis -Pain control -Consider general surgery eval -Epogen on dialysis Subjective Date of service: 10/31/16 Interval history: No new changes, No SOB/CP Objective - Exam Narrative Exam: G/A: Patient lying in bed, no apparent distress HEENT: Normocephalic, atraumatic, pupils equally round and reactive to light, extraocular movement intact, and no sclericterus,. No JVD or thyromegaly or nodule,neck supple, no carotid bruit ,mucous membranes moist, no exudate or erythema, permcath in place. No tenderness/erythema at exit site Heart: S1, S2, regular rate and rhythm Lungs: Clear to auscultation bilaterally, breathing comfortable Abdomen: Positive bowel sounds, tender on the right side, nondistended, no organomegaly Extremity: No edema, cyanosis, clubbing Skin: No rash, nodules, warm, dry Neuro: Oriented 3, cranial nerves II-12 intact, speech is fluent, motor and sensory intact - Vital Signs Vital signs: Vital Signs - 12hr 10/30/16 10/31/16 10/31/16 22:00 07:15 08:38 Temperature 98.7 F Pulse Rate [ 90 Left Radial] Respiratory 18 Rate Respiratory 20 Rate [Right Back] Blood Pressure 112/57 [Left Arm] O2 Sat by Pulse 95 Oximetry - Lab 10/31/16 06:30 10/31/16 06:30 Most recent lab results Calcium 7.7 mg/dL (8.4-10.2) L 10/31/16 06:30
[2016-10-31] MEDS ORDERED: ROCEPHIN/NS 1 GM/50 ML 50 ML IV SCH (10:00)
[2016-10-31] MEDS: FLAGYL 500 MG/100 ML 100 ML IV SCH ×2 (15:02→23:02)
--- NOTE | 2016-10-31 16:48 | Consultation ---
History of Present Illness - Reason for Consult Consult date: 10/31/16 abd pain - History of Present Illness 85 year old female with one week hx of abd pain-hx ESRD, dialyzed yesterday, admitted and CT abd pelvis question multiple gallstones, question acute cholecystitis, u/s RUQ reveals multiple stones, difficult to evaluated GB wall, HIDA with non vis of GB, WBC 20 K today, LFTs ok, has previous colostomy, hx of cardiac arrest in OR according to daughter.NPO, IV Zosyn, tender in RUQ on P Exam. Past History Past Medical History: dialysis, ESRD, hypertension Past Surgical History: bowel surgery Social history: no significant social history Medications and Allergies Allergies Allergy/AdvReac Type Severity Reaction Status Date / Time No Known Allergies Allergy Verified 03/18/15 10:53 Home Medications Medication Instructions Recorded Confirmed Last Taken Type Mirtazapine 7.5 mg PO QHS 09/28/16 10/30/16 09/28/16 History Albuterol Sulfate [Ventolin HFA] 2 puff IH Q4H PRN #1 pump 10/09/16 10/30/16 Unknown Rx Calcitriol [Rocaltrol] 0.25 mcg PO QDAY #30 capsule 10/09/16 10/30/16 Unknown Rx Famotidine [Pepcid] 20 mg PO BID #60 tablet 10/09/16 10/30/16 Unknown Rx amLODIPine [Norvasc] 10 mg PO DAILY #30 tablet 10/09/16 10/30/16 Unknown Rx Calcium Acetate [Phoslo] 667 mg PO TID 10/21/16 10/30/16 Unknown History Carvedilol [Coreg] 12.5 mg PO BID 10/21/16 10/30/16 Unknown History Active Meds: Active Medications Acetaminophen (Tylenol) 650 mg PO Q4H PRN PRN Reason: Pain MILD(1-3)/Fever >100.5/LEBRON Bisacodyl (Dulcolax) 10 mg [place] QDAY PRN PRN Reason: Constipation unrelieved by MOM Enoxaparin Sodium (Lovenox) 30 mg SUB-Q QDAY [facility] Last Admin: 10/31/16 09:16 Dose: 30 mg Heparin Sodium (Porcine) (Heparin) 5,000 unit IV MERE PRN PRN Reason: hemodialysis Last Admin: 10/30/16 19:18 Dose: 5,000 unit Hydralazine HCl (Apresoline) 5 mg IV Q6H PRN PRN Reason: Hypertension Sodium Chloride (Nacl 0.9% 1000 Ml) 100 mls @ 999 mls/hr IV MERE PRN PRN Reason: Hypotension Levofloxacin/Dextrose (Levaquin 500mg/100ml) 100 mls @ 100 mls/hr IV Q48HR [facility] PRN Reason: Protocol Last Admin: 10/31/16 09:20 Dose: 100 mls/hr Metronidazole (Flagyl 500 Mg/100 Ml) 100 mls @ 200 mls/hr IV TID [facility] Last Admin: 10/31/16 15:02 Dose: 200 mls/hr Magnesium Hydroxide (Milk Of Magnesia) 30 ml PO Q4H PRN PRN Reason: Constipation Morphine Sulfate (Morphine) 2 mg IV Q4H PRN PRN Reason: Pain, Moderate (4-6) Last Admin: 10/30/16 21:10 Dose: 2 mg Ondansetron HCl (Zofran) 4 mg IV Q8H PRN PRN Reason: N/V unrelieved by Reglan Review of Systems Constitutional: other (abd pain) Exam - Constitutional Vitals: Temp Pulse Resp BP Pulse Ox 98.2 F 99 H 20 114/64 100 10/31/16 16:30 10/31/16 16:30 10/31/16 16:30 10/31/16 16:30 10/31/16 16:30 General appearance: Present: mild distress - EENT Eyes: Present: PERRL - Neck Neck: Present: supple, normal ROM - Respiratory Respiratory effort: normal - Cardiovascular Rhythm: regular - Extremities Extremities: no ischemia - Abdominal General gastrointestinal: Present: tender, other (tender to deep palpation right upper quadrant) - Psychiatric Psychiatric: appropriate mood/affect, intact judgment & insight - Neurologic Neurologic: CNII-XII intact, moves all extremities Results - Labs CBC & Chem 7: 10/31/16 06:30 10/31/16 06:30 Labs: Abnormal lab results 10/30/16 10/31/16 10/31/16 Range/Units 23:33 06:30 06:30 WBC 20.6 H (4.5-11.0) K/mm3 RBC 3.25 L (3.65-5.03) M/mm3 Hgb 8.2 L (10.1-14.3) gm/dl Hct 27.7 L (30.3-42.9) % MCH 25 L (28-32) pg RDW 18.5 H (13.2-15.2) % Seg Neuts % (Manual) 90.0 H (40.0-70.0) % Lymphocytes % (Manual) 3.0 L (13.4-35.0) % Seg Neutrophils # Man 18.5 H (1.8-7.7) K/mm3 Lymphocytes # (Manual) 0.6 L (1.2-5.4) K/mm3 BUN 32 H (7-17) mg/dL Creatinine 4.7 H (0.7-1.2) mg/dL Glucose 161 H (65-100) mg/dL POC Glucose 178 H (70-105) Calcium 7.7 L (8.4-10.2) mg/dL Albumin 2.5 L (3.9-5) g/dL 10/31/16 10/31/16 Range/Units 07:45 11:15 WBC (4.5-11.0) K/mm3 RBC (3.65-5.03) M/mm3 Hgb (10.1-14.3) gm/dl Hct (30.3-42.9) % MCH (28-32) pg RDW (13.2-15.2) % Seg Neuts % (Manual) (40.0-70.0) % Lymphocytes % (Manual) (13.4-35.0) % Seg Neutrophils # Man (1.8-7.7) K/mm3 Lymphocytes # (Manual) (1.2-5.4) K/mm3 BUN (7-17) mg/dL Creatinine (0.7-1.2) mg/dL Glucose (65-100) mg/dL POC Glucose 164 H 195 H (70-105) Calcium (8.4-10.2) mg/dL Albumin (3.9-5) g/dL Assessment and Plan Acute cholecytitis, hx ESRD, previous colon resection colostomy. Recc open cholecystectomy. Dialyzed yesterday. I spoke with patient's daughter at length about all of this.
--- NOTE | 2016-10-31 17:06 | Anesthesia Consultation ---
Anesthesia Consult and Med Hx Date of service: 10/31/16 - Airway ROM Head & Neck: Adequate Mental/Hyoid Distance: Adequate Mallampati Class: Class II Intubation Access Assessment: Probably Good - Pulmonary Exam CTA: Yes - Cardiac Exam Cardiac Exam: RRR - Pre-Operative Health Status ASA Pre-Surgery Classification: ASA4 Proposed Anesthetic Plan: General - Pulmonary Hx Smoking: Yes Hx Asthma: Yes COPD: Yes Hx Pneumonia: Yes (10/2012) - Cardiovascular System Hx Hypertension: Yes - Endocrine Hx Renal Disease: Yes Hx End Stage Renal Disease: Yes (dialysis MWF) - Other Systems Hx Cancer: No Hx Obesity: Yes
--- NOTE | 2016-10-31 17:08 | Anesthesia Day of Surgery ---
Anesthesia Day of Surgery - Day of Surgery Patient Examined: Yes Patient H&P Reviewed: Yes Patient is NPO: Yes Beta Blockers: Yes
[2016-10-31] MEDS ORDERED: AMIDATE IV ONE (17:17)
[2016-10-31] MEDS ORDERED: ZEMURON IV ONE (17:18)
[2016-10-31] MEDS ORDERED: ZOFRAN ONE (17:18)
[2016-10-31] MEDS ORDERED: XYLOCAINE MPF 2% ONE (17:18)
[2016-10-31] MEDS ORDERED: SUBLIMAZE ONE (17:18)
[2016-10-31] MEDS ORDERED: NEO SYNEPHRINE/NS Syringe(OR USE) IV ONE ×2 (18:14)
[2016-10-31] MEDS ORDERED: NACL 0.9% IR ONE (18:16)
[2016-10-31] MEDS ORDERED: TORADOL ONE (18:21)
[2016-10-31] MEDS ORDERED: VASELINE LIP THERAPY TP PRN (18:48)
[2016-10-31] MEDS ORDERED: ARTIFICIAL TEARS OPHTH OINT OU PRN (18:48)
[2016-10-31] MEDS ORDERED: NACL 0.9% 500 ML IV SCH (19:00)
[2016-10-31] MEDS ORDERED: DIPRIVAN 10 MG/ML 100 ML IV SCH (20:00)
[2016-10-31 21:59] LABS: ISTAT Base Excess 6; ISTAT HCO3 27.7; ISTAT PCO2 29.6 (35-45); ISTAT PH 7.579 (7.35-7.45); ISTAT PO2 304 (80-105); ISTAT SITE 1; ISTAT SO2 100; ISTAT TCO2 29
--- NOTE | 2016-11-01 00:07 | Operative Report ---
PREOPERATIVE DIAGNOSIS: Acute cholecystitis. POSTOPERATIVE DIAGNOSES: 1. Acute cholecystitis. 2. 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 The cystic artery was barely about 1 mm, lots of adhesions between the gallbladder itself and the omentum as well as the transverse colon. The rest of examination showed also a hernia in the mid epigastric area little bit more to the left side with a defect of about 4 x 4 cm. SURGERY: 1. Open cholecystectomy. 2. Repair of incisional epigastric hernia, more to the left side. 3. Exploration of the right upper quadrant with open cholecystectomy and repair of an incisional hernia from previous operation. ANESTHESIA: General. BLOOD LOSS: Minimal. FINDINGS: The patient had a very large gallbladder that is firm and porcelain with thickened wall and edema as well as inflammatory adhesions between it and the transverse colon and the anterior abdominal wall. Medially to the midline, there is a hernia with a defect of about 3 x 3 cm there. ENVIRONMENTAL SERVICES MANAGER: Waldo Rodriguez MD DESCRIPTION OF PROCEDURE: With the patient in supine position, prepped and draped in the usual fashion, I made a right subcostal incision in deep subcutaneous tissue, the subcutaneous tissues were raised, skin and the muscle were very atrophic barely about 1 cm. So, the incision was performed all the way down to the deep fascia and then the peritoneum was opened. At that point, we could see a hernial defect in the epigastrium more to the left side. So, we had to extend the fascial incision to incorporate this defect with our incision. At that point, we were able to see the gallbladder that was very firm and stuck with multiple stones and edematous. So, the best way to go ahead and try to dissect it from its fundus down, this was done with use of the electrocautery all the way down to the cystic duct and cystic artery. These were hemoclipped x 3 and then the cystic duct in particular was tied using for that #0 Vicryl. We were well satisfied, we had good hemostasis. We were able to spray Max powder in the area to have good hemostasis. After which, we left a packing there. Then, the wound was closed in 1 layer interruptedly using for that purpose #1 Vicryl. We did remove the packing. There was excellent hemostasis. The skin was then closed with 0 Vicryl, multiples stitches and the skin with jose. A bandage was applied. The patient was then transferred to the recovery room in good condition. We kept her intubated as per the anesthesia recommendation and going to have her admitted to the intensive care unit, already talked to her family and we will go from there. We did notify plastics engineer, Dr. Harris to handle her situation. We are going to check with chest x-rays, CBC, and BMP in the morning. JOB# [id number] YOLETTE/PRINCE
[2016-11-01 03:01] LABS: BUN/Creatinine Ratio 7.5; Calcium 7.9 mg/dL (8.4-10.2); Chloride 100.2 mmol/L (98-107)
--- NOTE | 2016-11-01 10:45 | XRay Report ---
Portable chest: There is consolidation at the left lung base. The lateral cardiac margin as well as the hemidiaphragm are obscured. The remainder of the left lung is clear as is the right lung. The tip of an endotracheal tube is at the origin of the right mainstem bronchus and should be withdrawn about 1 cm for better positioning. Nasogastric tube tip is in the stomach. A right vas catheter is present with the tips in the right atrium. There are severe degenerative left shoulder joint changes. Compared to recent study of October 29 the left opacification, endotracheal tube and nasogastric tube are all new. Impression: 1. Left basilar consolidation. 2. Suboptimal endotracheal tube positioning.
[2016-11-01 10:46] LABS: ISTAT Base Excess 0; ISTAT HCO3 23.5; ISTAT PH 7.488 (7.35-7.45); ISTAT PO2 106 (80-105); ISTAT SO2 99; ISTAT TCO2 24
--- NOTE | 2016-11-01 10:46 | XRay Report ---
Portable chest: Comparison is made to the prior exam of October 31. There has been no change in the left basilar opacity. Multiple life support tubes are stable in position. The tip of the endotracheal tube is at the caroline. Impression: Left basilar opacification with no recent change.
--- NOTE | 2016-11-01 14:21 | Consultation ---
History of Present Illness Consult date: 11/01/16 Requesting physician: JULIO AGOSTO Reason for consult: hypoxemia, other (Post-op respiratory failure.) History of present illness: 85 y/o frail, AAF status post ex-lap for abdominal pain and cholecysitis with sepsis. Left intubated secondary to advanced age and extent of surgery. Awake and alert. Following commands and tolerates PSV fine. ABG this am is adequate Past History Past Medical History: dialysis, ESRD, hypertension Past Surgical History: bowel surgery Social history: no significant social history Medications and Allergies Allergies Allergy/AdvReac Type Severity Reaction Status Date / Time No Known Allergies Allergy Verified 03/18/15 10:53 Home Medications Medication Instructions Recorded Confirmed Last Taken Type Mirtazapine 7.5 mg PO QHS 09/28/16 10/30/16 09/28/16 History Albuterol Sulfate [Ventolin HFA] 2 puff IH Q4H PRN #1 pump 10/09/16 10/30/16 Unknown Rx Calcitriol [Rocaltrol] 0.25 mcg PO QDAY #30 capsule 10/09/16 10/30/16 Unknown Rx Famotidine [Pepcid] 20 mg PO BID #60 tablet 10/09/16 10/30/16 Unknown Rx amLODIPine [Norvasc] 10 mg PO DAILY #30 tablet 10/09/16 10/30/16 Unknown Rx Calcium Acetate [Phoslo] 667 mg PO TID 10/21/16 10/30/16 Unknown History Carvedilol [Coreg] 12.5 mg PO BID 10/21/16 10/30/16 Unknown History Active Meds: Active Medications Acetaminophen (Tylenol) 650 mg PO Q4H PRN PRN Reason: Pain MILD(1-3)/Fever >100.5/LEBRON Bisacodyl (Dulcolax) 10 mg [place] QDAY PRN PRN Reason: Constipation unrelieved by MOM Enoxaparin Sodium (Lovenox) 30 mg SUB-Q QDAY [facility] Last Admin: 10/31/16 09:16 Dose: 30 mg Hydrophilic Ointment (Vaseline Lip Therapy) 1 applic TP Q2HR PRN PRN Reason: Dry Lips Levofloxacin/Dextrose (Levaquin 500mg/100ml) 100 mls @ 100 mls/hr IV Q48HR [facility] PRN Reason: Protocol Last Admin: 10/31/16 09:20 Dose: 100 mls/hr Metronidazole (Flagyl 500 Mg/100 Ml) 100 mls @ 200 mls/hr IV TID [facility] Last Admin: 10/31/16 23:02 Dose: 200 mls/hr Propofol (Diprivan 10 Mg/Ml) 100 mls @ 4.2 mls/hr IV TITR [facility]; 5 MCG/KG/MIN PRN Reason: Protocol Last Admin: 10/31/16 20:39 Dose: 5 mcg/kg/min, 4.2 mls/hr Magnesium Hydroxide (Milk Of Magnesia) 30 ml PO Q4H PRN PRN Reason: Constipation Morphine Sulfate (Morphine) 2 mg IV Q4H PRN PRN Reason: Pain, Moderate (4-6) Last Admin: 10/30/16 21:10 Dose: 2 mg Multi-Ingred Cream/Lotion/Oil/Oint (Artificial Tears Ophth Oint) 1 applic OU Q4HR PRN PRN Reason: Dry Eye(s) Ondansetron HCl (Zofran) 4 mg IV Q8H PRN PRN Reason: N/V unrelieved by Reglan Sodium Chloride (Nacl 0.9% 500 Ml) 1 ml IV DIRECT [facility] Review of Systems ROS unobtainable: due to endotracheal tube Physical Examination Vital signs: Vital Signs Temp BP Pulse Ox 98.9 F 121/74 98 10/29/16 21:20 10/29/16 21:20 10/29/16 21:20 General appearance: no acute distress, alert ENT: other (orally intubated) Neck: supple Ascultation: Bilateral: clear Percussion: Bilateral: not dull Cardiovascular: regular rate and rhythm Gastrointestinal: other (post surgical changes) Extremities: no cyanosis, no edema, pink and warm Results - Laboratory Findings CBC and BMP: 10/31/16 06:30 11/01/16 02:06 ABG POC ABG pH 7.488 (7.35-7.45) H 11/01/16 05:56 POC ABG pCO2 31.0 (35-45) L 11/01/16 05:56 POC ABG pO2 106 (80-105) H 11/01/16 05:56 POC ABG HCO3 23.5 11/01/16 05:56 POC ABG Total CO2 24 11/01/16 05:56 POC ABG O2 Sat 99 11/01/16 05:56 Abnormal lab findings: Abnormal Labs 10/30/16 10/30/16 10/30/16 09:31 09:31 23:33 WBC 19.0 H RBC 3.11 L Hgb 7.9 L Hct 26.5 L MCH 25 L RDW 18.2 H Plt Count 460 H Seg Neuts % (Manual) 87.0 H Lymphocytes % (Manual) 3.0 L Seg Neutrophils # Man 16.5 H Lymphocytes # (Manual) 0.6 L Monocytes # (Manual) 1.0 H Basophils # (Manual) 0.2 H POC ABG pH POC ABG pCO2 POC ABG pO2 Chloride 97.4 L Carbon Dioxide BUN 61 H Creatinine 7.5 H Glucose 176 H POC Glucose 178 H Calcium 8.0 L Albumin 10/31/16 10/31/16 10/31/16 06:30 06:30 07:45 WBC 20.6 H RBC 3.25 L Hgb 8.2 L Hct 27.7 L MCH 25 L RDW 18.5 H Plt Count Seg Neuts % (Manual) 90.0 H Lymphocytes % (Manual) 3.0 L Seg Neutrophils # Man 18.5 H Lymphocytes # (Manual) 0.6 L Monocytes # (Manual) Basophils # (Manual) POC ABG pH POC ABG pCO2 POC ABG pO2 Chloride Carbon Dioxide BUN 32 H Creatinine 4.7 H Glucose 161 H POC Glucose 164 H Calcium 7.7 L Albumin 2.5 L 10/31/16 10/31/16 10/31/16 11:15 19:00 21:55 WBC RBC Hgb Hct MCH RDW Plt Count Seg Neuts % (Manual) Lymphocytes % (Manual) Seg Neutrophils # Man Lymphocytes # (Manual) Monocytes # (Manual) Basophils # (Manual) POC ABG pH 7.579 H POC ABG pCO2 29.6 L POC ABG pO2 304 H Chloride Carbon Dioxide BUN Creatinine Glucose POC Glucose 195 H 160 H Calcium Albumin 11/01/16 11/01/16 11/01/16 00:50 02:06 05:56 WBC RBC Hgb Hct MCH RDW Plt Count Seg Neuts % (Manual) Lymphocytes % (Manual) Seg Neutrophils # Man Lymphocytes # (Manual) Monocytes # (Manual) Basophils # (Manual) POC ABG pH 7.488 H POC ABG pCO2 31.0 L POC ABG pO2 106 H Chloride Carbon Dioxide 20 L BUN 45 H Creatinine 6.0 H Glucose 159 H POC Glucose 194 H Calcium 7.9 L Albumin Assessment and Plan 85 y/o female with acute respiratory failure secondary to sepsis from cholecysitis status post exlap. 1. Continue PSV 2. Abx therapy for abdominal bacteria, potentially 3. Discontinue all sedatives 4. Attempt extubation later this am. Note is in afternoon as CPU system was down and just came back on at 1300. Patient was seen this am somewhere between 8-10 am and has since been extubated and doing well CCt 31 minutes.
[2016-11-01] MEDS ORDERED: NACL 0.9% 1000 ML 100 ML IV PRN (14:39)
--- NOTE | 2016-11-01 15:38 | Progress Note ---
Assessment and Plan 1. ESRD on HD 2. Abdominal pain 3. Essential HTN 4. Cholelithiasis s/p cholecystectomy 5. Anemia of ESRD 6. Leukocytosis 7. Hx of bowel perf s/p colostomy Plan: -HD on MWF schedule -Antibiotics per primary team -Pain control -Epogen on dialysis Subjective Date of service: 11/01/16 Interval history: Events reviewed. Transferred to ICU post surgery Currently receiving dialysis/ tolerating well > stopped at 30 min 2/2 HD machine breakdown--now to be restarted. Objective - Exam Narrative Exam: G/A: Patient lying in bed, no apparent distress HEENT: Normocephalic, atraumatic, pupils equally round and reactive to light, extraocular movement intact, and no sclericterus,. No JVD or thyromegaly or nodule,neck supple, no carotid bruit ,mucous membranes moist, no exudate or erythema, permcath in place. No tenderness/erythema at exit site Heart: S1, S2, regular rate and rhythm Lungs: Clear to auscultation bilaterally, breathing comfortable Abdomen: Positive bowel sounds, tender on the right side, nondistended, no organomegaly Extremity: No edema, cyanosis, clubbing Skin: No rash, nodules, warm, dry Neuro: Oriented 3, cranial nerves II-12 intact, speech is fluent, motor and sensory intact - Vital Signs Vital signs: Vital Signs - 12hr 11/01/16 11/01/16 11/01/16 03:45 04:00 05:00 Temperature 98.8 F Pulse Rate 78 82 Pulse Rate [ 77 Left Radial] Respiratory 16 16 16 Rate Blood Pressure 122/60 121/58 O2 Sat by Pulse 100 100 Oximetry 11/01/16 11/01/16 11/01/16 06:00 07:00 07:45 Temperature Pulse Rate 81 77 Pulse Rate [ 81 Left Radial] Respiratory 16 14 Rate Blood Pressure 104/54 106/53 O2 Sat by Pulse 100 100 Oximetry 11/01/16 11/01/16 11/01/16 08:00 08:15 09:00 Temperature 98.3 F Pulse Rate 83 82 78 Pulse Rate [ Left Radial] Respiratory 14 14 Rate Blood Pressure 96/46 138/60 116/53 O2 Sat by Pulse 100 100 100 Oximetry 11/01/16 11/01/16 11/01/16 09:17 10:00 11:00 Temperature Pulse Rate 88 87 81 Pulse Rate [ 83 Left Radial] Respiratory 12 13 Rate Blood Pressure 104/47 117/53 O2 Sat by Pulse 99 99 100 Oximetry 11/01/16 11/01/16 11/01/16 12:00 13:00 13:50 Temperature 97.5 F L 97.5 F L Pulse Rate 80 78 82 Pulse Rate [ Left Radial] Respiratory 13 12 12 Rate Blood Pressure 117/55 124/57 134/57 O2 Sat by Pulse 100 Oximetry 11/01/16 11/01/16 11/01/16 14:00 14:25 14:30 Temperature Pulse Rate 82 82 84 Pulse Rate [ Left Radial] Respiratory 13 Rate Blood Pressure 138/60 138/60 129/64 O2 Sat by Pulse 100 Oximetry 11/01/16 14:45 Temperature Pulse Rate 87 Pulse Rate [ Left Radial] Respiratory Rate Blood Pressure 137/56 O2 Sat by Pulse Oximetry - Lab 10/31/16 06:30 11/01/16 02:06 Most recent lab results Calcium 7.9 mg/dL (8.4-10.2) L 11/01/16 02:06
--- NOTE | 2016-11-01 15:53 | Event Note ---
Date: 11/01/16 POD1 s/p open cholecystecomy (Dr. Mark/surgeon) VSS AF, hemodyn stable, being dialyzed, check CBC in am. OK for sips of liquids/ice chips.
[2016-11-01] MEDS: HEPARIN IV PRN (18:50)
[2016-11-01] MEDS: FLAGYL 500 MG/100 ML 100 ML IV SCH ×3 (18:58→20:07)
[2016-11-01] MEDS: LOVENOX SUB-Q SCH (19:00)
[2016-11-01 19:11] LABS: Hematocrit 27.4 % (30.3-42.9); Hemoglobin 8.3 gm/dl (10.1-14.3); Mean Corpuscular HGB Conc 30 % (30-34); Mean Corpuscular Volume 85 fl (79-97); Platelet Count 415 K/mm3 (140-440); Red Blood Count 3.24 M/mm3 (3.65-5.03); Red Cell Distribution Width 18.6 % (13.2-15.2)
[2016-11-01 19:12] LABS: Mean Corpuscular Hemoglobin 26 pg (28-32); White Blood Count 23.7 K/mm3 (4.5-11.0)
[2016-11-01 20:34] LABS: Basophils % (Manual) 0 % (0.0-1.8); Blastocytes % (Manual) 0 %
[2016-11-01 20:35] LABS: Anisocytosis 1+; Diff Status Complete; Hypochromasia 1+
[2016-11-01 23:18] LABS: Albumin 2.4 g/dL (3.9-5); Albumin/Globulin Ratio 0.5 %; Bilirubin,Total 0.6 mg/dL (0.1-1.2); Calcium 8.2 mg/dL (8.4-10.2); Chloride 96.9 mmol/L (98-107); Potassium 3.6 mmol/L (3.6-5.0); Total Protein 7.2 g/dL (6.3-8.2)
[2016-11-02 05:31] LABS: Mean Corpuscular HGB Conc 29 % (30-34); Mean Corpuscular Volume 86 fl (79-97); Platelet Count 434 K/mm3 (140-440); Red Blood Count 3.23 M/mm3 (3.65-5.03); Red Cell Distribution Width 18.6 % (13.2-15.2)
[2016-11-02 05:33] LABS: Hematocrit 27.6 % (30.3-42.9); Mean Corpuscular Hemoglobin 25 pg (28-32); White Blood Count 23.3 K/mm3 (4.5-11.0)
[2016-11-02 05:43] LABS: BUN/Creatinine Ratio 7.14; Calcium 8.4 mg/dL (8.4-10.2); Chloride 94.2 mmol/L (98-107); Magnesium 1.7 mg/dL (1.7-2.3); Phosphorous 3.1 mg/dL (2.5-4.5); Potassium 3.5 mmol/L (3.6-5.0)
[2016-11-02 06:22] LABS: Basophils % (Manual) 0 % (0.0-1.8); Blastocytes % (Manual) 0 %; Eosinophils % (Manual) 0 % (0.0-4.3)
[2016-11-02 06:23] LABS: Anisocytosis 1+; Diff Status Complete; Hypochromasia 1+; Platelet Estimate Consistent w Auto; Polychromasia 1+
--- NOTE | 2016-11-02 08:10 | XRay Report ---
AP chest x-ray. Findings: Since yesterday's study, subsegmental atelectasis has developed in the right lower lobe. There is persistent left lower lobe atelectasis. There are no other significant interval changes.
[2016-11-02] MEDS: LEVAQUIN 500MG/100ML 100 ML IV SCH (09:19)
[2016-11-02] MEDS: FLAGYL 500 MG/100 ML 100 ML IV SCH ×3 (09:19→20:48)
[2016-11-02] MEDS: MORPHINE IV PRN (09:20)
[2016-11-02] MEDS: LOVENOX SUB-Q SCH (09:20)
--- NOTE | 2016-11-02 11:08 | Progress Note ---
Assessment and Plan 85 y/o female with acute respiratory failure secondary to sepsis from cholecystitis status post exlap. 1. Wean supplemental O2 as tolerated 2. Stable for transfer out of unit. Subjective Date of service: 11/02/16 Interval history: Successful extubation. Had some PVC's during HD. None after. EKG showed some chronic changes. Nothing acute Objective Vital Signs - 12hr 11/01/16 11/02/16 11/02/16 23:53 00:00 01:00 Temperature 98.2 F Pulse Rate 87 83 90 Respiratory 16 17 13 Rate Blood Pressure 133/57 134/57 133/57 O2 Sat by Pulse 95 97 96 Oximetry 11/02/16 11/02/16 11/02/16 02:00 03:00 04:00 Temperature 98.1 F Pulse Rate 84 93 H 93 H Respiratory 18 17 15 Rate Blood Pressure 133/55 131/59 121/65 O2 Sat by Pulse 98 97 99 Oximetry 11/02/16 11/02/16 05:01 08:00 Temperature 97.6 F Pulse Rate 91 H Respiratory 19 Rate Blood Pressure 118/58 O2 Sat by Pulse 96 Oximetry Constitutional: no acute distress, alert ENT: other (orally intubated) Neck: supple Ascultation: Bilateral: clear Percussion: Bilateral: not dull Cardiovascular: regular rate and rhythm Gastrointestinal: other (post surgical changes) Extremities: no cyanosis, no edema, pink and warm CBC and BMP: 11/02/16 04:36 11/02/16 04:36 ABG, PT/INR, D-dimer: ABG POC ABG pH 7.488 (7.35-7.45) H 11/01/16 05:56 POC ABG pCO2 31.0 (35-45) L 11/01/16 05:56 POC ABG pO2 106 (80-105) H 11/01/16 05:56 POC ABG HCO3 23.5 11/01/16 05:56 POC ABG Total CO2 24 11/01/16 05:56 POC ABG O2 Sat 99 11/01/16 05:56 Abnormal lab findings: Abnormal Labs 10/30/16 10/30/16 10/30/16 09:31 09:31 23:33 WBC 19.0 H RBC 3.11 L Hgb 7.9 L Hct 26.5 L MCH 25 L MCHC RDW 18.2 H Plt Count 460 H Seg Neuts % (Manual) 87.0 H Lymphocytes % (Manual) 3.0 L Seg Neutrophils # Man 16.5 H Lymphocytes # (Manual) 0.6 L Monocytes # (Manual) 1.0 H Basophils # (Manual) 0.2 H POC ABG pH POC ABG pCO2 POC ABG pO2 Potassium Chloride 97.4 L Carbon Dioxide BUN 61 H Creatinine 7.5 H Glucose 176 H POC Glucose 178 H Calcium 8.0 L AST Albumin 10/31/16 10/31/16 10/31/16 06:30 06:30 07:45 WBC 20.6 H RBC 3.25 L Hgb 8.2 L Hct 27.7 L MCH 25 L MCHC RDW 18.5 H Plt Count Seg Neuts % (Manual) 90.0 H Lymphocytes % (Manual) 3.0 L Seg Neutrophils # Man 18.5 H Lymphocytes # (Manual) 0.6 L Monocytes # (Manual) Basophils # (Manual) POC ABG pH POC ABG pCO2 POC ABG pO2 Potassium Chloride Carbon Dioxide BUN 32 H Creatinine 4.7 H Glucose 161 H POC Glucose 164 H Calcium 7.7 L AST Albumin 2.5 L 10/31/16 10/31/16 10/31/16 11:15 19:00 21:55 WBC RBC Hgb Hct MCH MCHC RDW Plt Count Seg Neuts % (Manual) Lymphocytes % (Manual) Seg Neutrophils # Man Lymphocytes # (Manual) Monocytes # (Manual) Basophils # (Manual) POC ABG pH 7.579 H POC ABG pCO2 29.6 L POC ABG pO2 304 H Potassium Chloride Carbon Dioxide BUN Creatinine Glucose POC Glucose 195 H 160 H Calcium AST Albumin 11/01/16 11/01/16 11/01/16 00:50 02:06 05:56 WBC RBC Hgb Hct MCH MCHC RDW Plt Count Seg Neuts % (Manual) Lymphocytes % (Manual) Seg Neutrophils # Man Lymphocytes # (Manual) Monocytes # (Manual) Basophils # (Manual) POC ABG pH 7.488 H POC ABG pCO2 31.0 L POC ABG pO2 106 H Potassium Chloride Carbon Dioxide 20 L BUN 45 H Creatinine 6.0 H Glucose 159 H POC Glucose 194 H Calcium 7.9 L AST Albumin 11/01/16 11/01/16 11/01/16 08:01 11:32 16:21 WBC RBC Hgb Hct MCH MCHC RDW Plt Count Seg Neuts % (Manual) Lymphocytes % (Manual) Seg Neutrophils # Man Lymphocytes # (Manual) Monocytes # (Manual) Basophils # (Manual) POC ABG pH POC ABG pCO2 POC ABG pO2 Potassium Chloride Carbon Dioxide BUN Creatinine Glucose POC Glucose 183 H 172 H 189 H Calcium AST Albumin 11/01/16 11/01/16 11/02/16 18:51 22:37 00:10 WBC 23.7 H RBC 3.24 L Hgb 8.3 L Hct 27.4 L MCH 26 L MCHC RDW 18.6 H Plt Count Seg Neuts % (Manual) 91.0 H Lymphocytes % (Manual) 1.0 L Seg Neutrophils # Man 21.6 H Lymphocytes # (Manual) 0.2 L Monocytes # (Manual) Basophils # (Manual) POC ABG pH POC ABG pCO2 POC ABG pO2 Potassium Chloride 96.9 L Carbon Dioxide BUN Creatinine 2.5 H D Glucose 141 H POC Glucose 162 H Calcium 8.2 L AST 44 H Albumin 2.4 L 11/02/16 11/02/16 11/02/16 04:36 04:36 07:46 WBC 23.3 H RBC 3.23 L Hgb 8.0 L Hct 27.6 L MCH 25 L MCHC 29 L RDW 18.6 H Plt Count Seg Neuts % (Manual) Lymphocytes % (Manual) 6.0 L Seg Neutrophils # Man 16.1 H Lymphocytes # (Manual) Monocytes # (Manual) 1.4 H Basophils # (Manual) POC ABG pH POC ABG pCO2 POC ABG pO2 Potassium 3.5 L Chloride 94.2 L Carbon Dioxide BUN 20 H Creatinine 2.8 H Glucose 136 H POC Glucose 154 H Calcium AST Albumin
--- NOTE | 2016-11-02 14:03 | Progress Note ---
Assessment and Plan 1. ESRD on HD 2. Abdominal pain 3. Essential HTN 4. Cholelithiasis s/p cholecystectomy 5. Anemia of ESRD 6. Leukocytosis 7. Hx of bowel perf s/p colostomy Plan: -HD on MWF schedule -Antibiotics per primary team -Pain control -Will add B lina to her regimen -Consider cardio eval. -Epogen on dialysis Subjective Date of service: 11/02/16 Interval history: Events reviewed. Some PVCs while on dialysis yesterday. Objective - Exam Narrative Exam: G/A: Patient lying in bed, no apparent distress HEENT: Normocephalic, atraumatic, pupils equally round and reactive to light, extraocular movement intact, and no sclericterus,. No JVD or thyromegaly or nodule,neck supple, no carotid bruit ,mucous membranes moist, no exudate or erythema, permcath in place. No tenderness/erythema at exit site Heart: S1, S2, regular rate and rhythm Lungs: Clear to auscultation bilaterally, breathing comfortable Abdomen: Positive bowel sounds, tender on the right side, nondistended, no organomegaly Extremity: No edema, cyanosis, clubbing Skin: No rash, nodules, warm, dry Neuro: Oriented 3, cranial nerves II-12 intact, speech is fluent, motor and sensory intact - Vital Signs Vital signs: Vital Signs - 12hr 11/02/16 11/02/16 11/02/16 03:00 04:00 05:01 Temperature 98.1 F Pulse Rate 93 H 93 H 91 H Respiratory 17 15 19 Rate Blood Pressure 131/59 121/65 118/58 O2 Sat by Pulse 97 99 96 Oximetry 11/02/16 11/02/16 08:00 12:00 Temperature 97.6 F 98.0 F Pulse Rate Respiratory Rate Blood Pressure O2 Sat by Pulse Oximetry - Lab 11/02/16 04:36 11/02/16 04:36 Most recent lab results Calcium 8.4 mg/dL (8.4-10.2) 11/02/16 04:36 Phosphorus 3.1 mg/dL (2.5-4.5) 11/02/16 04:36 Magnesium 1.7 mg/dL (1.7-2.3) 11/02/16 04:36
--- NOTE | 2016-11-02 15:27 | Progress Note ---
Subjective Patient Reports: Positive: feels better, still having pain Narrative: extubated . sleepy wound clean bandage off . will start on liq PO talked to Dr Harris . Objective Vital Signs - 12hr 11/02/16 11/02/16 11/02/16 04:00 05:01 06:01 Temperature 98.1 F Pulse Rate 93 H 91 H 85 Pulse Rate [ Left Radial] Respiratory 15 19 16 Rate Blood Pressure 121/65 118/58 118/58 O2 Sat by Pulse 99 96 97 Oximetry 11/02/16 11/02/16 11/02/16 07:00 08:00 09:00 Temperature 97.6 F Pulse Rate 94 H 85 79 Pulse Rate [ 87 Left Radial] Respiratory 11 L 15 20 Rate Blood Pressure 129/67 126/61 130/56 O2 Sat by Pulse 99 99 99 Oximetry 11/02/16 11/02/16 11/02/16 10:00 11:00 12:00 Temperature 98.0 F Pulse Rate 79 81 86 Pulse Rate [ Left Radial] Respiratory 15 15 13 Rate Blood Pressure 129/59 131/56 118/55 O2 Sat by Pulse 99 99 98 Oximetry 11/02/16 11/02/16 13:00 14:00 Temperature Pulse Rate 91 H 89 Pulse Rate [ Left Radial] Respiratory 16 13 Rate Blood Pressure 139/72 119/62 O2 Sat by Pulse 100 99 Oximetry - Labs 11/02/16 04:36 11/02/16 04:36 Diabetes panel 11/01/16 11/02/16 Range/Units 22:37 04:36 Sodium 142 137 (137-145) mmol/L Potassium 3.6 3.5 L (3.6-5.0) mmol/L Chloride 96.9 L 94.2 L (98-107) mmol/L Carbon Dioxide 26 24 (22-30) mmol/L BUN 15 20 H (7-17) mg/dL Creatinine 2.5 H D 2.8 H (0.7-1.2) mg/dL Glucose 141 H 136 H (65-100) mg/dL Calcium 8.2 L 8.4 (8.4-10.2) mg/dL AST 44 H (5-40) units/L ALT 18 (7-56) units/L Alkaline Phosphatase 109 (35-129) units/L Total Protein 7.2 (6.3-8.2) g/dL Albumin 2.4 L (3.9-5) g/dL Calcium panel 11/01/16 11/02/16 Range/Units 22:37 04:36 Calcium 8.2 L 8.4 (8.4-10.2) mg/dL Phosphorus 3.1 (2.5-4.5) mg/dL Albumin 2.4 L (3.9-5) g/dL Pituitary panel 11/01/16 11/02/16 Range/Units 22:37 04:36 Sodium 142 137 (137-145) mmol/L Potassium 3.6 3.5 L (3.6-5.0) mmol/L Chloride 96.9 L 94.2 L (98-107) mmol/L Carbon Dioxide 26 24 (22-30) mmol/L BUN 15 20 H (7-17) mg/dL Creatinine 2.5 H D 2.8 H (0.7-1.2) mg/dL Glucose 141 H 136 H (65-100) mg/dL Calcium 8.2 L 8.4 (8.4-10.2) mg/dL Adrenal panel 11/01/16 11/02/16 Range/Units 22:37 04:36 Sodium 142 137 (137-145) mmol/L Potassium 3.6 3.5 L (3.6-5.0) mmol/L Chloride 96.9 L 94.2 L (98-107) mmol/L Carbon Dioxide 26 24 (22-30) mmol/L BUN 15 20 H (7-17) mg/dL Creatinine 2.5 H D 2.8 H (0.7-1.2) mg/dL Glucose 141 H 136 H (65-100) mg/dL Calcium 8.2 L 8.4 (8.4-10.2) mg/dL Total Bilirubin 0.6 (0.1-1.2) mg/dL AST 44 H (5-40) units/L ALT 18 (7-56) units/L Alkaline Phosphatase 109 (35-129) units/L Total Protein 7.2 (6.3-8.2) g/dL Albumin 2.4 L (3.9-5) g/dL
[2016-11-02] MEDS: COREG PO SCH (22:24)
--- NOTE | 2016-11-02 23:37 | Progress Note ---
Assessment and Plan - Patient Problems (1) Acute cholecystitis Current Visit: Yes Status: Acute Plan to address problem: IV abx, Surgery consulted, NPO, supportive care (2) End-stage renal disease (ESRD) Current Visit: Yes Status: Acute Plan to address problem: Nephrology consulted, dialysis as per renal team. (3) Acute on chronic renal failure Current Visit: No Status: Acute Plan to address problem: Nephrology consulted, supportive care, monitor uop q shift. (4) Chronic systolic heart failure Current Visit: No Status: Acute Plan to address problem: Telemetry monitoring, supportive care, (5) Diabetes mellitus type II, controlled Current Visit: No Status: Acute Qualifiers: Diabetes mellitus complication status: D Diabetes mellitus complication detail: D Diabetic retinopathy severity: D Diabetes mellitus macular edema: D Diabetes mellitus halfway insulin use: D Chronic kidney disease stage: C Plan to address problem: ADA diet, insulin, accu check (6) DVT prophylaxis Current Visit: No Status: Acute History Interval history: Pt lying in bed, No reported nursing events. Pt confused. Hospitalist Physical - Constitutional Vitals: Temp Pulse Resp BP Pulse Ox 98.4 F 98 H 18 120/56 100 11/02/16 20:00 11/02/16 20:00 11/02/16 20:17 11/02/16 20:00 11/02/16 21:54 General appearance: Present: mild distress - EENT Eyes: Present: PERRL, EOM intact - Neck Neck: Present: supple - Respiratory Respiratory effort: normal Respiratory: bilateral: CTA - Cardiovascular Rhythm: regular Heart Sounds: Present: S1 & S2 - Extremities Extremities: no ischemia Peripheral Pulses: within normal limits - Abdominal General gastrointestinal: soft, tender, non-distended Localized gastrointestinal: tender: RUQ - Integumentary Integumentary: Present: clear, dry - Psychiatric Psychiatric: appropriate mood/affect, cooperative - Neurologic Neurologic: CNII-XII intact Results - Labs CBC & Chem 7: 11/02/16 04:36 11/02/16 04:36 Labs: Laboratory Last Values WBC 23.3 K/mm3 (4.5-11.0) H 11/02/16 04:36 RBC 3.23 M/mm3 (3.65-5.03) L 11/02/16 04:36 Hgb 8.0 gm/dl (10.1-14.3) L 11/02/16 04:36 Hct 27.6 % (30.3-42.9) L 11/02/16 04:36 MCV 86 fl (79-97) 11/02/16 04:36 MCH 25 pg (28-32) L 11/02/16 04:36 MCHC 29 % (30-34) L 11/02/16 04:36 RDW 18.6 % (13.2-15.2) H 11/02/16 04:36 Plt Count 434 K/mm3 (140-440) 11/02/16 04:36 Add Manual Diff Complete 11/02/16 04:36 Total Counted 100 11/02/16 04:36 Seg Neuts % (Manual) 69.0 % (40.0-70.0) 11/02/16 04:36 Band Neutrophils % 13.0 % 11/02/16 04:36 Lymphocytes % (Manual) 6.0 % (13.4-35.0) L 11/02/16 04:36 Reactive Lymphs % (Man) 0 % 11/02/16 04:36 Monocytes % (Manual) 6.0 % (0.0-7.3) 11/02/16 04:36 Eosinophils % (Manual) 0 % (0.0-4.3) 11/02/16 04:36 Basophils % (Manual) 0 % (0.0-1.8) 11/02/16 04:36 Metamyelocytes % 6.0 % 11/02/16 04:36 Myelocytes % 0 % 11/02/16 04:36 Promyelocytes % 0 % 11/02/16 04:36 Blast Cells % 0 % 11/02/16 04:36 Nucleated RBC % Not Reportable 11/02/16 04:36 Seg Neutrophils # Man 16.1 K/mm3 (1.8-7.7) H 11/02/16 04:36 Band Neutrophils # 3.0 K/mm3 11/02/16 04:36 Lymphocytes # (Manual) 1.4 K/mm3 (1.2-5.4) 11/02/16 04:36 Abs React Lymphs (Man) 0.0 K/mm3 11/02/16 04:36 Monocytes # (Manual) 1.4 K/mm3 (0.0-0.8) H 11/02/16 04:36 Eosinophils # (Manual) 0.0 K/mm3 (0.0-0.4) 11/02/16 04:36 Basophils # (Manual) 0.0 K/mm3 (0.0-0.1) 11/02/16 04:36 Metamyelocytes # 1.4 K/mm3 11/02/16 04:36 Myelocytes # 0.0 K/mm3 11/02/16 04:36 Promyelocytes # 0.0 K/mm3 11/02/16 04:36 Blast Cells # 0.0 K/mm3 11/02/16 04:36 WBC Morphology Not Reportable 11/02/16 04:36 Hypersegmented Neuts Not Reportable 11/02/16 04:36 Hyposegmented Neuts Not Reportable 11/02/16 04:36 Hypogranular Neuts Not Reportable 11/02/16 04:36 Smudge Cells Not Reportable 11/02/16 04:36 Toxic Granulation Not Reportable 11/02/16 04:36 Toxic Vacuolation Not Reportable 11/02/16 04:36 Dohle Bodies Not Reportable 11/02/16 04:36 Pelger-Huet Anomaly Not Reportable 11/02/16 04:36 Aida Rods Not Reportable 11/02/16 04:36 Platelet Estimate Consistent w auto 11/02/16 04:36 Clumped Platelets Not Reportable 11/02/16 04:36 Plt Clumps, EDTA Not Reportable 11/02/16 04:36 Large Platelets Not Reportable 11/02/16 04:36 Giant Platelets Not Reportable 11/02/16 04:36 Platelet Satelliting Not Reportable 11/02/16 04:36 Plt Morphology Comment Not Reportable 11/02/16 04:36 RBC Morphology Not Reportable 11/02/16 04:36 Dimorphic RBCs Not Reportable 11/02/16 04:36 Polychromasia 1+ 11/02/16 04:36 Hypochromasia 1+ 11/02/16 04:36 Poikilocytosis Not Reportable 11/02/16 04:36 Anisocytosis 1+ 11/02/16 04:36 Microcytosis Not Reportable 11/02/16 04:36 Macrocytosis Not Reportable 11/02/16 04:36 Spherocytes Not Reportable 11/02/16 04:36 Pappenheimer Bodies Not Reportable 11/02/16 04:36 Sickle Cells Not Reportable 11/02/16 04:36 Target Cells Not Reportable 11/02/16 04:36 Tear Drop Cells Not Reportable 11/02/16 04:36 Ovalocytes Not Reportable 11/02/16 04:36 Helmet Cells Not Reportable 11/02/16 04:36 [place] Bodies Not Reportable 11/02/16 04:36 [place] Rings Not Reportable 11/02/16 04:36 Bernard Cells Not Reportable 11/02/16 04:36 Bite Cells Not Reportable 11/02/16 04:36 Crenated Cell Not Reportable 11/02/16 04:36 Elliptocytes Not Reportable 11/02/16 04:36 Acanthocytes (Spur) Not Reportable 11/02/16 04:36 Rouleaux Not Reportable 11/02/16 04:36 Hemoglobin C Crystals Not Reportable 11/02/16 04:36 Schistocytes Not Reportable 11/02/16 04:36 Malaria parasites Not Reportable 11/02/16 04:36 Jalil Bodies Not Reportable 11/02/16 04:36 Hem Pathologist Commnt No 11/02/16 04:36 POC ABG pH 7.488 (7.35-7.45) H 11/01/16 05:56 POC ABG pCO2 31.0 (35-45) L 11/01/16 05:56 POC ABG pO2 106 (80-105) H 11/01/16 05:56 POC ABG HCO3 23.5 11/01/16 05:56 POC ABG Total CO2 24 11/01/16 05:56 POC ABG O2 Sat 99 11/01/16 05:56 POC ABG Base Excess 0 11/01/16 05:56 FiO2 40 % 11/01/16 05:56 Sodium 137 mmol/L (137-145) 11/02/16 04:36 Potassium 3.5 mmol/L (3.6-5.0) L 11/02/16 04:36 Chloride 94.2 mmol/L (98-107) L 11/02/16 04:36 Carbon Dioxide 24 mmol/L (22-30) 11/02/16 04:36 Anion Gap 22 mmol/L 11/02/16 04:36 BUN 20 mg/dL (7-17) H 11/02/16 04:36 Creatinine 2.8 mg/dL (0.7-1.2) H 11/02/16 04:36 Estimated GFR 20 ml/min 11/02/16 04:36 BUN/Creatinine Ratio 7.14 % 11/02/16 04:36 Glucose 136 mg/dL (65-100) H 11/02/16 04:36 POC Glucose 147 (70-105) H 11/02/16 15:33 Calcium 8.4 mg/dL (8.4-10.2) 11/02/16 04:36 Phosphorus 3.1 mg/dL (2.5-4.5) 11/02/16 04:36 Magnesium 1.7 mg/dL (1.7-2.3) 11/02/16 04:36 Total Bilirubin 0.6 mg/dL (0.1-1.2) 11/01/16 22:37 AST 44 units/L (5-40) H 11/01/16 22:37 ALT 18 units/L (7-56) 11/01/16 22:37 Alkaline Phosphatase 109 units/L (35-129) 11/01/16 22:37 Total Protein 7.2 g/dL (6.3-8.2) 11/01/16 22:37 Albumin 2.4 g/dL (3.9-5) L 11/01/16 22:37 Albumin/Globulin Ratio 0.5 % 11/01/16 22:37 Urine Color Yellow (Yellow) 10/30/16 00:30 Urine Turbidity Slightly-cloudy (Clear) 10/30/16 00:30 Urine pH 5.0 (5.0-7.0) 10/30/16 00:30 Ur Specific [place] 1.015 (1.003-1.030) 10/30/16 00:30 Urine Protein 100 mg/dl mg/dL (Negative) 10/30/16 00:30 Urine Glucose (UA) Neg mg/dL (Negative) 10/30/16 00:30 Urine Ketones Tr mg/dL (Negative) 10/30/16 00:30 Urine Blood Neg (Negative) 10/30/16 00:30 Urine Nitrite Neg (Negative) 10/30/16 00:30 Urine Bilirubin Neg (Negative) 10/30/16 00:30 Urine Urobilinogen < 2.0 mg/dL (<2.0) 10/30/16 00:30 Ur Leukocyte Esterase Neg (Negative) 10/30/16 00:30 Urine WBC (Auto) 10.0 /HPF (0.0-6.0) H 10/30/16 00:30 Urine RBC (Auto) 2.0 /HPF (0.0-6.0) 10/30/16 00:30 U Epithel Cells (Auto) 6.0 /HPF (0-13.0) 10/30/16 00:30 Amorphous Crystals 1+ 10/30/16 00:30 Hyaline Casts 16 /LPF 10/30/16 00:30 Granular Casts 4 /LPF 10/30/16 00:30 Urine Mucus Few /HPF 10/30/16 00:30 Blood Type B POSITIVE 10/31/16 17:38 Antibody Screen Negative 10/31/16 17:38
--- NOTE | 2016-11-03 00:04 | Progress Note ---
Assessment and Plan - Patient Problems (1) Acute cholecystitis Current Visit: Yes Status: Acute Plan to address problem: IV abx, Surgery consulted, NPO, supportive care, S/P Lap ko The high probability of a clinically significant, sudden or life threatening deterioration of the [cardiac, pulmonary, hepatobiliary] system(s) required my full and direct attention, intervention and personal management. The aggregate critical care time was [45] minutes. This time is in addition to time spent performing reported procedures but includes the following: [x] Data Review and interpretation [x] Patient assessment and monitoring of vital signs [x] Documentation [x] Medication orders and management (2) End-stage renal disease (ESRD) Current Visit: Yes Status: Acute Plan to address problem: Nephrology consulted, dialysis as per renal team. (3) Acute on chronic renal failure Current Visit: No Status: Acute Plan to address problem: Nephrology consulted, supportive care, monitor uop q shift. (4) Chronic systolic heart failure Current Visit: No Status: Acute Plan to address problem: Telemetry monitoring, supportive care, (5) Diabetes mellitus type II, controlled Current Visit: No Status: Acute Qualifiers: Diabetes mellitus complication status: D Diabetes mellitus complication detail: D Diabetic retinopathy severity: D Diabetes mellitus macular edema: D Diabetes mellitus skilled nursing insulin use: D Chronic kidney disease stage: C Plan to address problem: ADA diet, insulin, accu check (6) DVT prophylaxis Current Visit: No Status: Acute History Interval history: Pt lying in bed, No reported nursing events. Pt lethargic, fragile, No reported nursing events. Pt shows mild cognitive slowing. Hospitalist Physical - Constitutional Vitals: Temp Pulse Resp BP Pulse Ox 98.4 F 98 H 18 120/56 100 11/02/16 20:00 11/02/16 20:00 11/02/16 20:17 11/02/16 20:00 11/02/16 21:54 General appearance: Present: mild distress - EENT Eyes: Present: PERRL, EOM intact ENT: hearing intact - Neck Neck: Present: supple - Respiratory Respiratory: bilateral: diminished - Cardiovascular Rhythm: regular Heart Sounds: Present: S1 & S2 - Extremities Extremities: no ischemia Peripheral Pulses: within normal limits - Abdominal General gastrointestinal: soft, non-distended - Integumentary Integumentary: Present: clear, dry - Psychiatric Psychiatric: cooperative - Neurologic Neurologic: CNII-XII intact Results - Labs CBC & Chem 7: 11/02/16 04:36 11/02/16 04:36 Labs: Laboratory Last Values WBC 23.3 K/mm3 (4.5-11.0) H 11/02/16 04:36 RBC 3.23 M/mm3 (3.65-5.03) L 11/02/16 04:36 Hgb 8.0 gm/dl (10.1-14.3) L 11/02/16 04:36 Hct 27.6 % (30.3-42.9) L 11/02/16 04:36 MCV 86 fl (79-97) 11/02/16 04:36 MCH 25 pg (28-32) L 11/02/16 04:36 MCHC 29 % (30-34) L 11/02/16 04:36 RDW 18.6 % (13.2-15.2) H 11/02/16 04:36 Plt Count 434 K/mm3 (140-440) 11/02/16 04:36 Add Manual Diff Complete 11/02/16 04:36 Total Counted 100 11/02/16 04:36 Seg Neuts % (Manual) 69.0 % (40.0-70.0) 11/02/16 04:36 Band Neutrophils % 13.0 % 11/02/16 04:36 Lymphocytes % (Manual) 6.0 % (13.4-35.0) L 11/02/16 04:36 Reactive Lymphs % (Man) 0 % 11/02/16 04:36 Monocytes % (Manual) 6.0 % (0.0-7.3) 11/02/16 04:36 Eosinophils % (Manual) 0 % (0.0-4.3) 11/02/16 04:36 Basophils % (Manual) 0 % (0.0-1.8) 11/02/16 04:36 Metamyelocytes % 6.0 % 11/02/16 04:36 Myelocytes % 0 % 11/02/16 04:36 Promyelocytes % 0 % 11/02/16 04:36 Blast Cells % 0 % 11/02/16 04:36 Nucleated RBC % Not Reportable 11/02/16 04:36 Seg Neutrophils # Man 16.1 K/mm3 (1.8-7.7) H 11/02/16 04:36 Band Neutrophils # 3.0 K/mm3 11/02/16 04:36 Lymphocytes # (Manual) 1.4 K/mm3 (1.2-5.4) 11/02/16 04:36 Abs React Lymphs (Man) 0.0 K/mm3 11/02/16 04:36 Monocytes # (Manual) 1.4 K/mm3 (0.0-0.8) H 11/02/16 04:36 Eosinophils # (Manual) 0.0 K/mm3 (0.0-0.4) 11/02/16 04:36 Basophils # (Manual) 0.0 K/mm3 (0.0-0.1) 11/02/16 04:36 Metamyelocytes # 1.4 K/mm3 11/02/16 04:36 Myelocytes # 0.0 K/mm3 11/02/16 04:36 Promyelocytes # 0.0 K/mm3 11/02/16 04:36 Blast Cells # 0.0 K/mm3 11/02/16 04:36 WBC Morphology Not Reportable 11/02/16 04:36 Hypersegmented Neuts Not Reportable 11/02/16 04:36 Hyposegmented Neuts Not Reportable 11/02/16 04:36 Hypogranular Neuts Not Reportable 11/02/16 04:36 Smudge Cells Not Reportable 11/02/16 04:36 Toxic Granulation Not Reportable 11/02/16 04:36 Toxic Vacuolation Not Reportable 11/02/16 04:36 Dohle Bodies Not Reportable 11/02/16 04:36 Pelger-Huet Anomaly Not Reportable 11/02/16 04:36 Aida Rods Not Reportable 11/02/16 04:36 Platelet Estimate Consistent w auto 11/02/16 04:36 Clumped Platelets Not Reportable 11/02/16 04:36 Plt Clumps, EDTA Not Reportable 11/02/16 04:36 Large Platelets Not Reportable 11/02/16 04:36 Giant Platelets Not Reportable 11/02/16 04:36 Platelet Satelliting Not Reportable 11/02/16 04:36 Plt Morphology Comment Not Reportable 11/02/16 04:36 RBC Morphology Not Reportable 11/02/16 04:36 Dimorphic RBCs Not Reportable 11/02/16 04:36 Polychromasia 1+ 11/02/16 04:36 Hypochromasia 1+ 11/02/16 04:36 Poikilocytosis Not Reportable 11/02/16 04:36 Anisocytosis 1+ 11/02/16 04:36 Microcytosis Not Reportable 11/02/16 04:36 Macrocytosis Not Reportable 11/02/16 04:36 Spherocytes Not Reportable 11/02/16 04:36 Pappenheimer Bodies Not Reportable 11/02/16 04:36 Sickle Cells Not Reportable 11/02/16 04:36 Target Cells Not Reportable 11/02/16 04:36 Tear Drop Cells Not Reportable 11/02/16 04:36 Ovalocytes Not Reportable 11/02/16 04:36 Helmet Cells Not Reportable 11/02/16 04:36 Munoz-Shevlin Bodies Not Reportable 11/02/16 04:36 [place] Rings Not Reportable 11/02/16 04:36 Freedom Cells Not Reportable 11/02/16 04:36 Bite Cells Not Reportable 11/02/16 04:36 Crenated Cell Not Reportable 11/02/16 04:36 Elliptocytes Not Reportable 11/02/16 04:36 Acanthocytes (Spur) Not Reportable 11/02/16 04:36 Rouleaux Not Reportable 11/02/16 04:36 Hemoglobin C Crystals Not Reportable 11/02/16 04:36 Schistocytes Not Reportable 11/02/16 04:36 Malaria parasites Not Reportable 11/02/16 04:36 Jalil Bodies Not Reportable 11/02/16 04:36 Hem Pathologist Commnt No 11/02/16 04:36 POC ABG pH 7.488 (7.35-7.45) H 11/01/16 05:56 POC ABG pCO2 31.0 (35-45) L 11/01/16 05:56 POC ABG pO2 106 (80-105) H 11/01/16 05:56 POC ABG HCO3 23.5 11/01/16 05:56 POC ABG Total CO2 24 11/01/16 05:56 POC ABG O2 Sat 99 11/01/16 05:56 POC ABG Base Excess 0 11/01/16 05:56 FiO2 40 % 11/01/16 05:56 Sodium 137 mmol/L (137-145) 11/02/16 04:36 Potassium 3.5 mmol/L (3.6-5.0) L 11/02/16 04:36 Chloride 94.2 mmol/L (98-107) L 11/02/16 04:36 Carbon Dioxide 24 mmol/L (22-30) 11/02/16 04:36 Anion Gap 22 mmol/L 11/02/16 04:36 BUN 20 mg/dL (7-17) H 11/02/16 04:36 Creatinine 2.8 mg/dL (0.7-1.2) H 11/02/16 04:36 Estimated GFR 20 ml/min 11/02/16 04:36 BUN/Creatinine Ratio 7.14 % 11/02/16 04:36 Glucose 136 mg/dL (65-100) H 11/02/16 04:36 POC Glucose 147 (70-105) H 11/02/16 15:33 Calcium 8.4 mg/dL (8.4-10.2) 11/02/16 04:36 Phosphorus 3.1 mg/dL (2.5-4.5) 11/02/16 04:36 Magnesium 1.7 mg/dL (1.7-2.3) 11/02/16 04:36 Total Bilirubin 0.6 mg/dL (0.1-1.2) 11/01/16 22:37 AST 44 units/L (5-40) H 11/01/16 22:37 ALT 18 units/L (7-56) 11/01/16 22:37 Alkaline Phosphatase 109 units/L (35-129) 11/01/16 22:37 Total Protein 7.2 g/dL (6.3-8.2) 11/01/16 22:37 Albumin 2.4 g/dL (3.9-5) L 11/01/16 22:37 Albumin/Globulin Ratio 0.5 % 11/01/16 22:37 Urine Color Yellow (Yellow) 10/30/16 00:30 Urine Turbidity Slightly-cloudy (Clear) 10/30/16 00:30 Urine pH 5.0 (5.0-7.0) 10/30/16 00:30 Ur Specific [place] 1.015 (1.003-1.030) 10/30/16 00:30 Urine Protein 100 mg/dl mg/dL (Negative) 10/30/16 00:30 Urine Glucose (UA) Neg mg/dL (Negative) 10/30/16 00:30 Urine Ketones Tr mg/dL (Negative) 10/30/16 00:30 Urine Blood Neg (Negative) 10/30/16 00:30 Urine Nitrite Neg (Negative) 10/30/16 00:30 Urine Bilirubin Neg (Negative) 10/30/16 00:30 Urine Urobilinogen < 2.0 mg/dL (<2.0) 10/30/16 00:30 Ur Leukocyte Esterase Neg (Negative) 10/30/16 00:30 Urine WBC (Auto) 10.0 /HPF (0.0-6.0) H 10/30/16 00:30 Urine RBC (Auto) 2.0 /HPF (0.0-6.0) 10/30/16 00:30 U Epithel Cells (Auto) 6.0 /HPF (0-13.0) 10/30/16 00:30 Amorphous Crystals 1+ 10/30/16 00:30 Hyaline Casts 16 /LPF 10/30/16 00:30 Granular Casts 4 /LPF 10/30/16 00:30 Urine Mucus Few /HPF 10/30/16 00:30 Blood Type B POSITIVE 10/31/16 17:38 Antibody Screen Negative 10/31/16 17:38
--- NOTE | 2016-11-03 05:04 | Event Note ---
Date: 11/03/16 Dr. Mark is the operative surgeon of record, I first assisted on this case, I will sign off,please reconsult me if needed.
[2016-11-03] MEDS: MORPHINE IV PRN ×2 (08:36→16:09)
[2016-11-03] MEDS: FLAGYL 500 MG/100 ML 100 ML IV SCH ×3 (08:43→21:59)
[2016-11-03] MEDS ORDERED: NACL 0.9% 1000 ML 100 ML IV PRN (11:32)
--- NOTE | 2016-11-03 13:15 | Progress Note ---
Assessment and Plan 1. ESRD on HD 2. Abdominal pain 3. Essential HTN 4. Cholelithiasis s/p cholecystectomy 5. Anemia of ESRD 6. Leukocytosis 7. Hx of bowel perf s/p colostomy Plan: -HD on MWF schedule -Antibiotics per primary team -Pain control -Added B lina to her regimen -Consider cardio eval. -Epogen on dialysis -Replete potassium on dialysis today Subjective Date of service: 11/03/16 Interval history: Pt seen and examined while receiving dialysis Tolerating dialysis well Objective - Exam Narrative Exam: G/A: Patient lying in bed, no apparent distress HEENT: Normocephalic, atraumatic, pupils equally round and reactive to light, extraocular movement intact, and no sclericterus,. No JVD or thyromegaly or nodule,neck supple, no carotid bruit ,mucous membranes moist, no exudate or erythema, permcath in place. No tenderness/erythema at exit site Heart: S1, S2, regular rate and rhythm Lungs: Clear to auscultation bilaterally, breathing comfortable Abdomen: Positive bowel sounds, tender on the right side, nondistended, no organomegaly Extremity: No edema, cyanosis, clubbing Skin: No rash, nodules, warm, dry Neuro: Oriented 3, cranial nerves II-12 intact, speech is fluent, motor and sensory intact - Vital Signs Vital signs: Vital Signs - 12hr 11/03/16 11/03/16 11/03/16 04:20 07:06 07:12 Temperature 99.0 F 98.1 F Pulse Rate Pulse Rate [ 97 H 97 H Left Radial] Respiratory 20 20 Rate Blood Pressure Blood Pressure 139/63 127/68 [Left Arm] O2 Sat by Pulse 96 96 97 Oximetry 11/03/16 11/03/16 11/03/16 10:15 10:30 10:45 Temperature 98.2 F Pulse Rate 68 64 96 H Pulse Rate [ Left Radial] Respiratory 20 Rate Blood Pressure 114/43 115/55 104/52 Blood Pressure [Left Arm] O2 Sat by Pulse Oximetry 11/03/16 11/03/16 11/03/16 11:00 11:05 11:15 Temperature Pulse Rate 93 H 92 H 95 H Pulse Rate [ Left Radial] Respiratory Rate Blood Pressure 98/41 106/50 97/47 Blood Pressure [Left Arm] O2 Sat by Pulse Oximetry 11/03/16 11/03/16 11/03/16 11:30 11:45 11:50 Temperature Pulse Rate 94 H 93 H 94 H Pulse Rate [ Left Radial] Respiratory Rate Blood Pressure 105/49 94/46 105/55 Blood Pressure [Left Arm] O2 Sat by Pulse Oximetry 11/03/16 11/03/16 11/03/16 12:00 12:15 12:30 Temperature Pulse Rate 93 H 92 H 92 H Pulse Rate [ Left Radial] Respiratory Rate Blood Pressure 121/48 111/53 112/55 Blood Pressure [Left Arm] O2 Sat by Pulse Oximetry 11/03/16 11/03/16 12:45 13:00 Temperature Pulse Rate 93 H 92 H Pulse Rate [ Left Radial] Respiratory Rate Blood Pressure 133/55 118/49 Blood Pressure [Left Arm] O2 Sat by Pulse Oximetry - Lab 11/02/16 04:36 11/02/16 04:36 Most recent lab results Calcium 8.4 mg/dL (8.4-10.2) 11/02/16 04:36 Phosphorus 3.1 mg/dL (2.5-4.5) 11/02/16 04:36 Magnesium 1.7 mg/dL (1.7-2.3) 11/02/16 04:36
[2016-11-03] MEDS: HEPARIN IV PRN (14:16)
--- NOTE | 2016-11-03 15:01 | Progress Note ---
Assessment and Plan 85 y/o female with acute respiratory failure secondary to sepsis from cholecystitis status post exlap. 1. Wean supplemental O2 as tolerated Subjective Date of service: 11/03/16 Interval history: No acute events. In HD Objective Vital Signs - 12hr 11/03/16 11/03/16 11/03/16 04:20 07:06 07:12 Temperature 99.0 F 98.1 F Pulse Rate Pulse Rate [ 97 H 97 H Left Radial] Respiratory 20 20 Rate Blood Pressure Blood Pressure 139/63 127/68 [Left Arm] O2 Sat by Pulse 96 96 97 Oximetry 11/03/16 11/03/16 11/03/16 10:15 10:30 10:45 Temperature 98.2 F Pulse Rate 68 64 96 H Pulse Rate [ Left Radial] Respiratory 20 Rate Blood Pressure 114/43 115/55 104/52 Blood Pressure [Left Arm] O2 Sat by Pulse Oximetry 11/03/16 11/03/16 11/03/16 11:00 11:05 11:15 Temperature Pulse Rate 93 H 92 H 95 H Pulse Rate [ Left Radial] Respiratory Rate Blood Pressure 98/41 106/50 97/47 Blood Pressure [Left Arm] O2 Sat by Pulse Oximetry 11/03/16 11/03/16 11/03/16 11:30 11:45 11:50 Temperature Pulse Rate 94 H 93 H 94 H Pulse Rate [ Left Radial] Respiratory Rate Blood Pressure 105/49 94/46 105/55 Blood Pressure [Left Arm] O2 Sat by Pulse Oximetry 11/03/16 11/03/16 11/03/16 12:00 12:15 12:30 Temperature Pulse Rate 93 H 92 H 92 H Pulse Rate [ Left Radial] Respiratory Rate Blood Pressure 121/48 111/53 112/55 Blood Pressure [Left Arm] O2 Sat by Pulse Oximetry 11/03/16 11/03/16 11/03/16 12:45 13:00 13:15 Temperature Pulse Rate 93 H 92 H 90 Pulse Rate [ Left Radial] Respiratory Rate Blood Pressure 133/55 118/49 116/48 Blood Pressure [Left Arm] O2 Sat by Pulse Oximetry 11/03/16 13:30 Temperature 98.2 F Pulse Rate 90 Pulse Rate [ Left Radial] Respiratory 20 Rate Blood Pressure 126/92 Blood Pressure [Left Arm] O2 Sat by Pulse Oximetry Constitutional: no acute distress, alert ENT: other (orally intubated) Neck: supple Ascultation: Bilateral: clear Percussion: Bilateral: not dull Cardiovascular: regular rate and rhythm Gastrointestinal: other (post surgical changes) Extremities: no cyanosis, no edema, pink and warm CBC and BMP: 11/02/16 04:36 11/02/16 04:36 ABG, PT/INR, D-dimer: ABG POC ABG pH 7.488 (7.35-7.45) H 11/01/16 05:56 POC ABG pCO2 31.0 (35-45) L 11/01/16 05:56 POC ABG pO2 106 (80-105) H 11/01/16 05:56 POC ABG HCO3 23.5 11/01/16 05:56 POC ABG Total CO2 24 11/01/16 05:56 POC ABG O2 Sat 99 11/01/16 05:56 Abnormal lab findings: Abnormal Labs 10/30/16 10/30/16 10/30/16 09:31 09:31 23:33 WBC 19.0 H RBC 3.11 L Hgb 7.9 L Hct 26.5 L MCH 25 L MCHC RDW 18.2 H Plt Count 460 H Seg Neuts % (Manual) 87.0 H Lymphocytes % (Manual) 3.0 L Seg Neutrophils # Man 16.5 H Lymphocytes # (Manual) 0.6 L Monocytes # (Manual) 1.0 H Basophils # (Manual) 0.2 H POC ABG pH POC ABG pCO2 POC ABG pO2 Potassium Chloride 97.4 L Carbon Dioxide BUN 61 H Creatinine 7.5 H Glucose 176 H POC Glucose 178 H Calcium 8.0 L AST Albumin 10/31/16 10/31/16 10/31/16 06:30 06:30 07:45 WBC 20.6 H RBC 3.25 L Hgb 8.2 L Hct 27.7 L MCH 25 L MCHC RDW 18.5 H Plt Count Seg Neuts % (Manual) 90.0 H Lymphocytes % (Manual) 3.0 L Seg Neutrophils # Man 18.5 H Lymphocytes # (Manual) 0.6 L Monocytes # (Manual) Basophils # (Manual) POC ABG pH POC ABG pCO2 POC ABG pO2 Potassium Chloride Carbon Dioxide BUN 32 H Creatinine 4.7 H Glucose 161 H POC Glucose 164 H Calcium 7.7 L AST Albumin 2.5 L 10/31/16 10/31/16 10/31/16 11:15 19:00 21:55 WBC RBC Hgb Hct MCH MCHC RDW Plt Count Seg Neuts % (Manual) Lymphocytes % (Manual) Seg Neutrophils # Man Lymphocytes # (Manual) Monocytes # (Manual) Basophils # (Manual) POC ABG pH 7.579 H POC ABG pCO2 29.6 L POC ABG pO2 304 H Potassium Chloride Carbon Dioxide BUN Creatinine Glucose POC Glucose 195 H 160 H Calcium AST Albumin 11/01/16 11/01/16 11/01/16 00:50 02:06 05:56 WBC RBC Hgb Hct MCH MCHC RDW Plt Count Seg Neuts % (Manual) Lymphocytes % (Manual) Seg Neutrophils # Man Lymphocytes # (Manual) Monocytes # (Manual) Basophils # (Manual) POC ABG pH 7.488 H POC ABG pCO2 31.0 L POC ABG pO2 106 H Potassium Chloride Carbon Dioxide 20 L BUN 45 H Creatinine 6.0 H Glucose 159 H POC Glucose 194 H Calcium 7.9 L AST Albumin 11/01/16 11/01/16 11/01/16 08:01 11:32 16:21 WBC RBC Hgb Hct MCH MCHC RDW Plt Count Seg Neuts % (Manual) Lymphocytes % (Manual) Seg Neutrophils # Man Lymphocytes # (Manual) Monocytes # (Manual) Basophils # (Manual) POC ABG pH POC ABG pCO2 POC ABG pO2 Potassium Chloride Carbon Dioxide BUN Creatinine Glucose POC Glucose 183 H 172 H 189 H Calcium AST Albumin 11/01/16 11/01/16 11/02/16 18:51 22:37 00:10 WBC 23.7 H RBC 3.24 L Hgb 8.3 L Hct 27.4 L MCH 26 L MCHC RDW 18.6 H Plt Count Seg Neuts % (Manual) 91.0 H Lymphocytes % (Manual) 1.0 L Seg Neutrophils # Man 21.6 H Lymphocytes # (Manual) 0.2 L Monocytes # (Manual) Basophils # (Manual) POC ABG pH POC ABG pCO2 POC ABG pO2 Potassium Chloride 96.9 L Carbon Dioxide BUN Creatinine 2.5 H D Glucose 141 H POC Glucose 162 H Calcium 8.2 L AST 44 H Albumin 2.4 L 11/02/16 11/02/16 11/02/16 04:36 04:36 07:46 WBC 23.3 H RBC 3.23 L Hgb 8.0 L Hct 27.6 L MCH 25 L MCHC 29 L RDW 18.6 H Plt Count Seg Neuts % (Manual) Lymphocytes % (Manual) 6.0 L Seg Neutrophils # Man 16.1 H Lymphocytes # (Manual) Monocytes # (Manual) 1.4 H Basophils # (Manual) POC ABG pH POC ABG pCO2 POC ABG pO2 Potassium 3.5 L Chloride 94.2 L Carbon Dioxide BUN 20 H Creatinine 2.8 H Glucose 136 H POC Glucose 154 H Calcium AST Albumin 11/02/16 11/02/16 11/03/16 11:58 15:33 00:23 WBC RBC Hgb Hct MCH MCHC RDW Plt Count Seg Neuts % (Manual) Lymphocytes % (Manual) Seg Neutrophils # Man Lymphocytes # (Manual) Monocytes # (Manual) Basophils # (Manual) POC ABG pH POC ABG pCO2 POC ABG pO2 Potassium Chloride Carbon Dioxide BUN Creatinine Glucose POC Glucose 163 H 147 H 134 H Calcium AST Albumin
[2016-11-03] MEDS: COREG PO SCH ×2 (16:01→21:59)
[2016-11-03] MEDS: LOVENOX SUB-Q SCH (16:05)
--- NOTE | 2016-11-03 19:40 | Progress Note ---
Assessment and Plan - Patient Problems (1) Acute cholecystitis Current Visit: Yes Status: Acute Plan to address problem: IV abx, Surgery consulted, NPO, supportive care, S/P Lap ko, (2) End-stage renal disease (ESRD) Current Visit: Yes Status: Acute Plan to address problem: Nephrology consulted, dialysis as per renal team. (3) Acute on chronic renal failure Current Visit: No Status: Acute Plan to address problem: Nephrology consulted, supportive care, monitor uop q shift. (4) Chronic systolic heart failure Current Visit: No Status: Acute Plan to address problem: Telemetry monitoring, supportive care, (5) Diabetes mellitus type II, controlled Current Visit: No Status: Acute Qualifiers: Diabetes mellitus complication status: D Diabetes mellitus complication detail: D Diabetic retinopathy severity: D Diabetes mellitus macular edema: D Diabetes mellitus watermaster insulin use: D Chronic kidney disease stage: C Plan to address problem: ADA diet, insulin, accu check (6) Debility Current Visit: Yes Status: Acute Plan to address problem: PT consulted, Pending placement. (7) DVT prophylaxis Current Visit: No Status: Acute History Interval history: Pt lying in bed, No reported nursing events. Pt lethargic, fragile, No reported nursing events. Pt shows mild cognitive slowing. Hospitalist Physical - Constitutional Vitals: Temp Pulse Resp BP Pulse Ox 98.4 F 101 H 20 123/65 96 11/03/16 17:15 11/03/16 17:15 11/03/16 17:15 11/03/16 17:15 11/03/16 17:15 General appearance: Present: mild distress - EENT Eyes: Present: PERRL ENT: hearing intact - Neck Neck: Present: supple - Respiratory Respiratory: bilateral: diminished - Cardiovascular Rhythm: regular Heart Sounds: Present: S1 & S2 - Extremities Extremities: no ischemia Extremity abnormal: edema Peripheral Pulses: within normal limits - Abdominal General gastrointestinal: soft, non-tender, non-distended - Integumentary Integumentary: Present: clear, dry - Psychiatric Psychiatric: no appropriate mood/affect, no intact judgment & insight, no memory intact - Neurologic Neurologic: CNII-XII intact Results - Labs CBC & Chem 7: 11/02/16 04:36 11/02/16 04:36 Labs: Laboratory Last Values WBC 23.3 K/mm3 (4.5-11.0) H 11/02/16 04:36 RBC 3.23 M/mm3 (3.65-5.03) L 11/02/16 04:36 Hgb 8.0 gm/dl (10.1-14.3) L 11/02/16 04:36 Hct 27.6 % (30.3-42.9) L 11/02/16 04:36 MCV 86 fl (79-97) 11/02/16 04:36 MCH 25 pg (28-32) L 11/02/16 04:36 MCHC 29 % (30-34) L 11/02/16 04:36 RDW 18.6 % (13.2-15.2) H 11/02/16 04:36 Plt Count 434 K/mm3 (140-440) 11/02/16 04:36 Add Manual Diff Complete 11/02/16 04:36 Total Counted 100 11/02/16 04:36 Seg Neuts % (Manual) 69.0 % (40.0-70.0) 11/02/16 04:36 Band Neutrophils % 13.0 % 11/02/16 04:36 Lymphocytes % (Manual) 6.0 % (13.4-35.0) L 11/02/16 04:36 Reactive Lymphs % (Man) 0 % 11/02/16 04:36 Monocytes % (Manual) 6.0 % (0.0-7.3) 11/02/16 04:36 Eosinophils % (Manual) 0 % (0.0-4.3) 11/02/16 04:36 Basophils % (Manual) 0 % (0.0-1.8) 11/02/16 04:36 Metamyelocytes % 6.0 % 11/02/16 04:36 Myelocytes % 0 % 11/02/16 04:36 Promyelocytes % 0 % 11/02/16 04:36 Blast Cells % 0 % 11/02/16 04:36 Nucleated RBC % Not Reportable 11/02/16 04:36 Seg Neutrophils # Man 16.1 K/mm3 (1.8-7.7) H 11/02/16 04:36 Band Neutrophils # 3.0 K/mm3 11/02/16 04:36 Lymphocytes # (Manual) 1.4 K/mm3 (1.2-5.4) 11/02/16 04:36 Abs React Lymphs (Man) 0.0 K/mm3 11/02/16 04:36 Monocytes # (Manual) 1.4 K/mm3 (0.0-0.8) H 11/02/16 04:36 Eosinophils # (Manual) 0.0 K/mm3 (0.0-0.4) 11/02/16 04:36 Basophils # (Manual) 0.0 K/mm3 (0.0-0.1) 11/02/16 04:36 Metamyelocytes # 1.4 K/mm3 11/02/16 04:36 Myelocytes # 0.0 K/mm3 11/02/16 04:36 Promyelocytes # 0.0 K/mm3 11/02/16 04:36 Blast Cells # 0.0 K/mm3 11/02/16 04:36 WBC Morphology Not Reportable 11/02/16 04:36 Hypersegmented Neuts Not Reportable 11/02/16 04:36 Hyposegmented Neuts Not Reportable 11/02/16 04:36 Hypogranular Neuts Not Reportable 11/02/16 04:36 Smudge Cells Not Reportable 11/02/16 04:36 Toxic Granulation Not Reportable 11/02/16 04:36 Toxic Vacuolation Not Reportable 11/02/16 04:36 Dohle Bodies Not Reportable 11/02/16 04:36 Pelger-Huet Anomaly Not Reportable 11/02/16 04:36 Aida Rods Not Reportable 11/02/16 04:36 Platelet Estimate Consistent w auto 11/02/16 04:36 Clumped Platelets Not Reportable 11/02/16 04:36 Plt Clumps, EDTA Not Reportable 11/02/16 04:36 Large Platelets Not Reportable 11/02/16 04:36 Giant Platelets Not Reportable 11/02/16 04:36 Platelet Satelliting Not Reportable 11/02/16 04:36 Plt Morphology Comment Not Reportable 11/02/16 04:36 RBC Morphology Not Reportable 11/02/16 04:36 Dimorphic RBCs Not Reportable 11/02/16 04:36 Polychromasia 1+ 11/02/16 04:36 Hypochromasia 1+ 11/02/16 04:36 Poikilocytosis Not Reportable 11/02/16 04:36 Anisocytosis 1+ 11/02/16 04:36 Microcytosis Not Reportable 11/02/16 04:36 Macrocytosis Not Reportable 11/02/16 04:36 Spherocytes Not Reportable 11/02/16 04:36 Pappenheimer Bodies Not Reportable 11/02/16 04:36 Sickle Cells Not Reportable 11/02/16 04:36 Target Cells Not Reportable 11/02/16 04:36 Tear Drop Cells Not Reportable 11/02/16 04:36 Ovalocytes Not Reportable 11/02/16 04:36 Helmet Cells Not Reportable 11/02/16 04:36 Munoz-Brinson Bodies Not Reportable 11/02/16 04:36 [place] Rings Not Reportable 11/02/16 04:36 [place] Cells Not Reportable 11/02/16 04:36 Bite Cells Not Reportable 11/02/16 04:36 Crenated Cell Not Reportable 11/02/16 04:36 Elliptocytes Not Reportable 11/02/16 04:36 Acanthocytes (Spur) Not Reportable 11/02/16 04:36 Rouleaux Not Reportable 11/02/16 04:36 Hemoglobin C Crystals Not Reportable 11/02/16 04:36 Schistocytes Not Reportable 11/02/16 04:36 Malaria parasites Not Reportable 11/02/16 04:36 Jalil Bodies Not Reportable 11/02/16 04:36 Hem Pathologist Commnt No 11/02/16 04:36 POC ABG pH 7.488 (7.35-7.45) H 11/01/16 05:56 POC ABG pCO2 31.0 (35-45) L 11/01/16 05:56 POC ABG pO2 106 (80-105) H 11/01/16 05:56 POC ABG HCO3 23.5 11/01/16 05:56 POC ABG Total CO2 24 11/01/16 05:56 POC ABG O2 Sat 99 11/01/16 05:56 POC ABG Base Excess 0 11/01/16 05:56 FiO2 40 % 11/01/16 05:56 Sodium 137 mmol/L (137-145) 11/02/16 04:36 Potassium 3.5 mmol/L (3.6-5.0) L 11/02/16 04:36 Chloride 94.2 mmol/L (98-107) L 11/02/16 04:36 Carbon Dioxide 24 mmol/L (22-30) 11/02/16 04:36 Anion Gap 22 mmol/L 11/02/16 04:36 BUN 20 mg/dL (7-17) H 11/02/16 04:36 Creatinine 2.8 mg/dL (0.7-1.2) H 11/02/16 04:36 Estimated GFR 20 ml/min 11/02/16 04:36 BUN/Creatinine Ratio 7.14 % 11/02/16 04:36 Glucose 136 mg/dL (65-100) H 11/02/16 04:36 POC Glucose 134 (70-105) H 11/03/16 00:23 Calcium 8.4 mg/dL (8.4-10.2) 11/02/16 04:36 Phosphorus 3.1 mg/dL (2.5-4.5) 11/02/16 04:36 Magnesium 1.7 mg/dL (1.7-2.3) 11/02/16 04:36 Total Bilirubin 0.6 mg/dL (0.1-1.2) 11/01/16 22:37 AST 44 units/L (5-40) H 11/01/16 22:37 ALT 18 units/L (7-56) 11/01/16 22:37 Alkaline Phosphatase 109 units/L (35-129) 11/01/16 22:37 Total Protein 7.2 g/dL (6.3-8.2) 11/01/16 22:37 Albumin 2.4 g/dL (3.9-5) L 11/01/16 22:37 Albumin/Globulin Ratio 0.5 % 11/01/16 22:37 Urine Color Yellow (Yellow) 10/30/16 00:30 Urine Turbidity Slightly-cloudy (Clear) 10/30/16 00:30 Urine pH 5.0 (5.0-7.0) 10/30/16 00:30 Ur Specific [place] 1.015 (1.003-1.030) 10/30/16 00:30 Urine Protein 100 mg/dl mg/dL (Negative) 10/30/16 00:30 Urine Glucose (UA) Neg mg/dL (Negative) 10/30/16 00:30 Urine Ketones Tr mg/dL (Negative) 10/30/16 00:30 Urine Blood Neg (Negative) 10/30/16 00:30 Urine Nitrite Neg (Negative) 10/30/16 00:30 Urine Bilirubin Neg (Negative) 10/30/16 00:30 Urine Urobilinogen < 2.0 mg/dL (<2.0) 10/30/16 00:30 Ur Leukocyte Esterase Neg (Negative) 10/30/16 00:30 Urine WBC (Auto) 10.0 /HPF (0.0-6.0) H 10/30/16 00:30 Urine RBC (Auto) 2.0 /HPF (0.0-6.0) 10/30/16 00:30 U Epithel Cells (Auto) 6.0 /HPF (0-13.0) 10/30/16 00:30 Amorphous Crystals 1+ 10/30/16 00:30 Hyaline Casts 16 /LPF 10/30/16 00:30 Granular Casts 4 /LPF 10/30/16 00:30 Urine Mucus Few /HPF 10/30/16 00:30 Blood Type B POSITIVE 10/31/16 17:38 Antibody Screen Negative 10/31/16 17:38
[2016-11-04] MEDS: ZOFRAN IV PRN (08:41)
[2016-11-04] MEDS: FLAGYL 500 MG/100 ML 100 ML IV SCH ×3 (08:41→21:31)
[2016-11-04] MEDS: MORPHINE IV PRN ×2 (08:42→21:41)
[2016-11-04] MEDS: LEVAQUIN 500MG/100ML 100 ML IV SCH (09:18)
[2016-11-04] MEDS: COREG PO SCH ×2 (09:19→21:31)
[2016-11-04] MEDS: LOVENOX SUB-Q SCH (09:19)
--- NOTE | 2016-11-04 11:11 | Progress Note ---
Assessment and Plan 85 y/o female with acute respiratory failure secondary to sepsis from cholecystitis status post exlap. 1. Wean supplemental O2 as tolerated 2. Will see as needed Subjective Date of service: 11/04/16 Interval history: No acute events. Oxygen being weaned. Objective Vital Signs - 12hr 11/04/16 11/04/16 11/04/16 01:30 04:05 07:40 Temperature 98.6 F 98.4 F 97.4 F L Pulse Rate Pulse Rate [ 95 H 99 H 100 H Right Radial] Respiratory 20 20 20 Rate Blood Pressure Blood Pressure 117/61 119/73 123/70 [Right Radial Artery] O2 Sat by Pulse 100 100 100 Oximetry 11/04/16 11/04/16 08:10 09:19 Temperature Pulse Rate 100 H Pulse Rate [ Right Radial] Respiratory Rate Blood Pressure 123/70 Blood Pressure [Right Radial Artery] O2 Sat by Pulse 100 Oximetry Constitutional: no acute distress, alert ENT: other (orally intubated) Neck: supple Ascultation: Bilateral: clear Percussion: Bilateral: not dull Cardiovascular: regular rate and rhythm Gastrointestinal: other (post surgical changes) Extremities: no cyanosis, no edema, pink and warm CBC and BMP: 11/02/16 04:36 11/02/16 04:36 ABG, PT/INR, D-dimer: ABG POC ABG pH 7.488 (7.35-7.45) H 11/01/16 05:56 POC ABG pCO2 31.0 (35-45) L 11/01/16 05:56 POC ABG pO2 106 (80-105) H 11/01/16 05:56 POC ABG HCO3 23.5 11/01/16 05:56 POC ABG Total CO2 24 11/01/16 05:56 POC ABG O2 Sat 99 11/01/16 05:56 Abnormal lab findings: Abnormal Labs 10/30/16 10/30/16 10/30/16 09:31 09:31 23:33 WBC 19.0 H RBC 3.11 L Hgb 7.9 L Hct 26.5 L MCH 25 L MCHC RDW 18.2 H Plt Count 460 H Seg Neuts % (Manual) 87.0 H Lymphocytes % (Manual) 3.0 L Seg Neutrophils # Man 16.5 H Lymphocytes # (Manual) 0.6 L Monocytes # (Manual) 1.0 H Basophils # (Manual) 0.2 H POC ABG pH POC ABG pCO2 POC ABG pO2 Potassium Chloride 97.4 L Carbon Dioxide BUN 61 H Creatinine 7.5 H Glucose 176 H POC Glucose 178 H Calcium 8.0 L AST Albumin 10/31/16 10/31/16 10/31/16 06:30 06:30 07:45 WBC 20.6 H RBC 3.25 L Hgb 8.2 L Hct 27.7 L MCH 25 L MCHC RDW 18.5 H Plt Count Seg Neuts % (Manual) 90.0 H Lymphocytes % (Manual) 3.0 L Seg Neutrophils # Man 18.5 H Lymphocytes # (Manual) 0.6 L Monocytes # (Manual) Basophils # (Manual) POC ABG pH POC ABG pCO2 POC ABG pO2 Potassium Chloride Carbon Dioxide BUN 32 H Creatinine 4.7 H Glucose 161 H POC Glucose 164 H Calcium 7.7 L AST Albumin 2.5 L 10/31/16 10/31/16 10/31/16 11:15 19:00 21:55 WBC RBC Hgb Hct MCH MCHC RDW Plt Count Seg Neuts % (Manual) Lymphocytes % (Manual) Seg Neutrophils # Man Lymphocytes # (Manual) Monocytes # (Manual) Basophils # (Manual) POC ABG pH 7.579 H POC ABG pCO2 29.6 L POC ABG pO2 304 H Potassium Chloride Carbon Dioxide BUN Creatinine Glucose POC Glucose 195 H 160 H Calcium AST Albumin 11/01/16 11/01/16 11/01/16 00:50 02:06 05:56 WBC RBC Hgb Hct MCH MCHC RDW Plt Count Seg Neuts % (Manual) Lymphocytes % (Manual) Seg Neutrophils # Man Lymphocytes # (Manual) Monocytes # (Manual) Basophils # (Manual) POC ABG pH 7.488 H POC ABG pCO2 31.0 L POC ABG pO2 106 H Potassium Chloride Carbon Dioxide 20 L BUN 45 H Creatinine 6.0 H Glucose 159 H POC Glucose 194 H Calcium 7.9 L AST Albumin 11/01/16 11/01/16 11/01/16 08:01 11:32 16:21 WBC RBC Hgb Hct MCH MCHC RDW Plt Count Seg Neuts % (Manual) Lymphocytes % (Manual) Seg Neutrophils # Man Lymphocytes # (Manual) Monocytes # (Manual) Basophils # (Manual) POC ABG pH POC ABG pCO2 POC ABG pO2 Potassium Chloride Carbon Dioxide BUN Creatinine Glucose POC Glucose 183 H 172 H 189 H Calcium AST Albumin 11/01/16 11/01/16 11/02/16 18:51 22:37 00:10 WBC 23.7 H RBC 3.24 L Hgb 8.3 L Hct 27.4 L MCH 26 L MCHC RDW 18.6 H Plt Count Seg Neuts % (Manual) 91.0 H Lymphocytes % (Manual) 1.0 L Seg Neutrophils # Man 21.6 H Lymphocytes # (Manual) 0.2 L Monocytes # (Manual) Basophils # (Manual) POC ABG pH POC ABG pCO2 POC ABG pO2 Potassium Chloride 96.9 L Carbon Dioxide BUN Creatinine 2.5 H D Glucose 141 H POC Glucose 162 H Calcium 8.2 L AST 44 H Albumin 2.4 L 11/02/16 11/02/16 11/02/16 04:36 04:36 07:46 WBC 23.3 H RBC 3.23 L Hgb 8.0 L Hct 27.6 L MCH 25 L MCHC 29 L RDW 18.6 H Plt Count Seg Neuts % (Manual) Lymphocytes % (Manual) 6.0 L Seg Neutrophils # Man 16.1 H Lymphocytes # (Manual) Monocytes # (Manual) 1.4 H Basophils # (Manual) POC ABG pH POC ABG pCO2 POC ABG pO2 Potassium 3.5 L Chloride 94.2 L Carbon Dioxide BUN 20 H Creatinine 2.8 H Glucose 136 H POC Glucose 154 H Calcium AST Albumin 11/02/16 11/02/16 11/03/16 11:58 15:33 00:23 WBC RBC Hgb Hct MCH MCHC RDW Plt Count Seg Neuts % (Manual) Lymphocytes % (Manual) Seg Neutrophils # Man Lymphocytes # (Manual) Monocytes # (Manual) Basophils # (Manual) POC ABG pH POC ABG pCO2 POC ABG pO2 Potassium Chloride Carbon Dioxide BUN Creatinine Glucose POC Glucose 163 H 147 H 134 H Calcium AST Albumin 11/03/16 11/04/16 11/04/16 07:19 00:06 07:50 WBC RBC Hgb Hct MCH MCHC RDW Plt Count Seg Neuts % (Manual) Lymphocytes % (Manual) Seg Neutrophils # Man Lymphocytes # (Manual) Monocytes # (Manual) Basophils # (Manual) POC ABG pH POC ABG pCO2 POC ABG pO2 Potassium Chloride Carbon Dioxide BUN Creatinine Glucose POC Glucose 113 H 161 H 198 H Calcium AST Albumin
[2016-11-04] MEDS: PROTONIX PO SCH (12:34)
--- NOTE | 2016-11-04 14:00 | Progress Note ---
Assessment and Plan - Patient Problems (1) End-stage renal disease (ESRD) Current Visit: Yes Status: Acute Plan to address problem: Hemodialysis on a Sunday, Sunday and Sunday schedule. Next Hemodialysis on Sunday (2) Hypertensive chronic kidney disease with stage 5 chronic kidney disease or end stage renal disease Current Visit: Yes Status: Acute Plan to address problem: Follow-up blood pressure on current medications (3) Anemia in chronic kidney disease Current Visit: No Status: Acute Plan to address problem: Give erythropoietin on dialysis. (4) Colostomy in place Current Visit: Yes Status: Acute Plan to address problem: Continue colostomy care (5) Diabetes mellitus type II, controlled Current Visit: No Status: Acute Qualifiers: Diabetes mellitus complication status: D Diabetes mellitus complication detail: D Diabetic retinopathy severity: D Diabetes mellitus macular edema: D Diabetes mellitus intermediate teacher insulin use: D Chronic kidney disease stage: C Plan to address problem: Blood sugar management by primary attending Objective - Vital Signs Vital signs: Vital Signs - 12hr 11/04/16 11/04/16 11/04/16 04:05 07:40 08:10 Temperature 98.4 F 97.4 F L Pulse Rate Pulse Rate [ 99 H 100 H Right Radial] Respiratory 20 20 Rate Blood Pressure Blood Pressure 119/73 123/70 [Right Radial Artery] O2 Sat by Pulse 100 100 100 Oximetry 11/04/16 09:19 Temperature Pulse Rate 100 H Pulse Rate [ Right Radial] Respiratory Rate Blood Pressure 123/70 Blood Pressure [Right Radial Artery] O2 Sat by Pulse Oximetry - Lab 11/02/16 04:36 11/02/16 04:36 Most recent lab results Calcium 8.4 mg/dL (8.4-10.2) 11/02/16 04:36 Phosphorus 3.1 mg/dL (2.5-4.5) 11/02/16 04:36 Magnesium 1.7 mg/dL (1.7-2.3) 11/02/16 04:36
--- NOTE | 2016-11-04 14:21 | Progress Note ---
Subjective Narrative: sleepy , appetite poor on cl liquids , will advance diet slowly , encouraged family to help feeding the Pt , atelectasis both lung bases , had HD yesterday talked to RN ,will continue care , Objective Vital Signs - 12hr 11/04/16 11/04/16 11/04/16 04:05 07:40 08:10 Temperature 98.4 F 97.4 F L Pulse Rate Pulse Rate [ 99 H 100 H Right Radial] Respiratory 20 20 Rate Blood Pressure Blood Pressure 119/73 123/70 [Right Radial Artery] O2 Sat by Pulse 100 100 100 Oximetry 11/04/16 09:19 Temperature Pulse Rate 100 H Pulse Rate [ Right Radial] Respiratory Rate Blood Pressure 123/70 Blood Pressure [Right Radial Artery] O2 Sat by Pulse Oximetry - Labs 11/02/16 04:36 11/02/16 04:36
[2016-11-04] MEDS ORDERED: NOVOLOG SUB-Q ONE (15:06)
[2016-11-05 04:08] LABS: BUN/Creatinine Ratio 6.22; Calcium 8.5 mg/dL (8.4-10.2); Chloride 94.8 mmol/L (98-107); Mean Corpuscular HGB Conc 28 % (30-34); Mean Corpuscular Volume 91 fl (79-97); Platelet Count 387 K/mm3 (140-440); Potassium 3.8 mmol/L (3.6-5.0); Red Blood Count 2.87 M/mm3 (3.65-5.03); Red Cell Distribution Width 19.3 % (13.2-15.2)
[2016-11-05 04:09] LABS: White Blood Count 22.1 K/mm3 (4.5-11.0)
[2016-11-05 04:10] LABS: Hematocrit 26.2 % (30.3-42.9); Hemoglobin 7.3 gm/dl (10.1-14.3); Mean Corpuscular Hemoglobin 25 pg (28-32)
--- NOTE | 2016-11-05 07:26 | Progress Note ---
Assessment and Plan - Patient Problems (1) Acute cholecystitis Current Visit: Yes Status: Acute Plan to address problem: IV abx, Surgery consulted, NPO, supportive care, S/P Lap ko, (2) End-stage renal disease (ESRD) Current Visit: Yes Status: Acute Plan to address problem: Nephrology consulted, dialysis as per renal team. (3) Acute on chronic renal failure Current Visit: No Status: Acute Plan to address problem: Nephrology consulted, supportive care, monitor uop q shift. 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 (7) DVT prophylaxis Current Visit: No Status: Acute History Interval history: Pt lying in bed, No reported nursing events. Pt lethargic, fragile, No reported nursing events. Pt shows mild cognitive slowing. Pt found to have worsening leukocytosis, but vital sign stable, no decompensation overnight. Hospitalist Physical - Constitutional Vitals: Temp Pulse Resp BP Pulse Ox 97.6 F 84 20 110/68 100 11/05/16 05:03 11/05/16 05:03 11/05/16 05:03 11/05/16 05:03 11/05/16 05:03 General appearance: Present: no acute distress, cachectic - EENT Eyes: Present: PERRL ENT: hearing intact - Neck Neck: Present: supple - Respiratory Respiratory: bilateral: diminished - Cardiovascular Rhythm: regular Heart Sounds: Present: S1 & S2 - Extremities Extremities: no ischemia Peripheral Pulses: within normal limits - Abdominal General gastrointestinal: soft, non-tender, non-distended - Integumentary Integumentary: Present: clear, dry, decreased turgor - Psychiatric Psychiatric: no intact judgment & insight, no memory intact, cooperative - Neurologic Neurologic: CNII-XII intact, no gait normal Results - Labs CBC & Chem 7: 11/05/16 03:18 11/05/16 03:18 Labs: Laboratory Last Values WBC 22.1 K/mm3 (4.5-11.0) H 11/05/16 03:18 RBC 2.87 M/mm3 (3.65-5.03) L 11/05/16 03:18 Hgb 7.3 gm/dl (10.1-14.3) L 11/05/16 03:18 Hct 26.2 % (30.3-42.9) L 11/05/16 03:18 MCV 91 fl (79-97) D 11/05/16 03:18 MCH 25 pg (28-32) L 11/05/16 03:18 MCHC 28 % (30-34) L 11/05/16 03:18 RDW 19.3 % (13.2-15.2) H 11/05/16 03:18 Plt Count 387 K/mm3 (140-440) 11/05/16 03:18 Add Manual Diff Complete 11/02/16 04:36 Total Counted 100 11/02/16 04:36 Seg Neuts % (Manual) 69.0 % (40.0-70.0) 11/02/16 04:36 Band Neutrophils % 13.0 % 11/02/16 04:36 Lymphocytes % (Manual) 6.0 % (13.4-35.0) L 11/02/16 04:36 Reactive Lymphs % (Man) 0 % 11/02/16 04:36 Monocytes % (Manual) 6.0 % (0.0-7.3) 11/02/16 04:36 Eosinophils % (Manual) 0 % (0.0-4.3) 11/02/16 04:36 Basophils % (Manual) 0 % (0.0-1.8) 11/02/16 04:36 Metamyelocytes % 6.0 % 11/02/16 04:36 Myelocytes % 0 % 11/02/16 04:36 Promyelocytes % 0 % 11/02/16 04:36 Blast Cells % 0 % 11/02/16 04:36 Nucleated RBC % Not Reportable 11/02/16 04:36 Seg Neutrophils # Man 16.1 K/mm3 (1.8-7.7) H 11/02/16 04:36 Band Neutrophils # 3.0 K/mm3 11/02/16 04:36 Lymphocytes # (Manual) 1.4 K/mm3 (1.2-5.4) 11/02/16 04:36 Abs React Lymphs (Man) 0.0 K/mm3 11/02/16 04:36 Monocytes # (Manual) 1.4 K/mm3 (0.0-0.8) H 11/02/16 04:36 Eosinophils # (Manual) 0.0 K/mm3 (0.0-0.4) 11/02/16 04:36 Basophils # (Manual) 0.0 K/mm3 (0.0-0.1) 11/02/16 04:36 Metamyelocytes # 1.4 K/mm3 11/02/16 04:36 Myelocytes # 0.0 K/mm3 11/02/16 04:36 Promyelocytes # 0.0 K/mm3 11/02/16 04:36 Blast Cells # 0.0 K/mm3 11/02/16 04:36 WBC Morphology Not Reportable 11/02/16 04:36 Hypersegmented Neuts Not Reportable 11/02/16 04:36 Hyposegmented Neuts Not Reportable 11/02/16 04:36 Hypogranular Neuts Not Reportable 11/02/16 04:36 Smudge Cells Not Reportable 11/02/16 04:36 Toxic Granulation Not Reportable 11/02/16 04:36 Toxic Vacuolation Not Reportable 11/02/16 04:36 Dohle Bodies Not Reportable 11/02/16 04:36 Pelger-Huet Anomaly Not Reportable 11/02/16 04:36 Aida Rods Not Reportable 11/02/16 04:36 Platelet Estimate Consistent w auto 11/02/16 04:36 Clumped Platelets Not Reportable 11/02/16 04:36 Plt Clumps, EDTA Not Reportable 11/02/16 04:36 Large Platelets Not Reportable 11/02/16 04:36 Giant Platelets Not Reportable 11/02/16 04:36 Platelet Satelliting Not Reportable 11/02/16 04:36 Plt Morphology Comment Not Reportable 11/02/16 04:36 RBC Morphology Not Reportable 11/02/16 04:36 Dimorphic RBCs Not Reportable 11/02/16 04:36 Polychromasia 1+ 11/02/16 04:36 Hypochromasia 1+ 11/02/16 04:36 Poikilocytosis Not Reportable 11/02/16 04:36 Anisocytosis 1+ 11/02/16 04:36 Microcytosis Not Reportable 11/02/16 04:36 Macrocytosis Not Reportable 11/02/16 04:36 Spherocytes Not Reportable 11/02/16 04:36 Pappenheimer Bodies Not Reportable 11/02/16 04:36 Sickle Cells Not Reportable 11/02/16 04:36 Target Cells Not Reportable 11/02/16 04:36 Tear Drop Cells Not Reportable 11/02/16 04:36 Ovalocytes Not Reportable 11/02/16 04:36 Helmet Cells Not Reportable 11/02/16 04:36 Munoz-[place] Bodies Not Reportable 11/02/16 04:36 [place] Rings Not Reportable 11/02/16 04:36 [place] Cells Not Reportable 11/02/16 04:36 Bite Cells Not Reportable 11/02/16 04:36 Crenated Cell Not Reportable 11/02/16 04:36 Elliptocytes Not Reportable 11/02/16 04:36 Acanthocytes (Spur) Not Reportable 11/02/16 04:36 Rouleaux Not Reportable 11/02/16 04:36 Hemoglobin C Crystals Not Reportable 11/02/16 04:36 Schistocytes Not Reportable 11/02/16 04:36 Malaria parasites Not Reportable 11/02/16 04:36 Jalil Bodies Not Reportable 11/02/16 04:36 Hem Pathologist Commnt No 11/02/16 04:36 POC ABG pH 7.488 (7.35-7.45) H 11/01/16 05:56 POC ABG pCO2 31.0 (35-45) L 11/01/16 05:56 POC ABG pO2 106 (80-105) H 11/01/16 05:56 POC ABG HCO3 23.5 11/01/16 05:56 POC ABG Total CO2 24 11/01/16 05:56 POC ABG O2 Sat 99 11/01/16 05:56 POC ABG Base Excess 0 11/01/16 05:56 FiO2 40 % 11/01/16 05:56 Sodium 135 mmol/L (137-145) L 11/05/16 03:18 Potassium 3.8 mmol/L (3.6-5.0) 11/05/16 03:18 Chloride 94.8 mmol/L (98-107) L 11/05/16 03:18 Carbon Dioxide 23 mmol/L (22-30) 11/05/16 03:18 Anion Gap 21 mmol/L 11/05/16 03:18 BUN 28 mg/dL (7-17) H 11/05/16 03:18 Creatinine 4.5 mg/dL (0.7-1.2) H D 11/05/16 03:18 Estimated GFR 11 ml/min 11/05/16 03:18 BUN/Creatinine Ratio 6.22 % 11/05/16 03:18 Glucose 128 mg/dL (65-100) H 11/05/16 03:18 POC Glucose 136 (70-105) H 11/04/16 21:50 Calcium 8.5 mg/dL (8.4-10.2) 11/05/16 03:18 Phosphorus 3.1 mg/dL (2.5-4.5) 11/02/16 04:36 Magnesium 1.7 mg/dL (1.7-2.3) 11/02/16 04:36 Total Bilirubin 0.6 mg/dL (0.1-1.2) 11/01/16 22:37 AST 44 units/L (5-40) H 11/01/16 22:37 ALT 18 units/L (7-56) 11/01/16 22:37 Alkaline Phosphatase 109 units/L (35-129) 11/01/16 22:37 Total Protein 7.2 g/dL (6.3-8.2) 11/01/16 22:37 Albumin 2.4 g/dL (3.9-5) L 11/01/16 22:37 Albumin/Globulin Ratio 0.5 % 11/01/16 22:37 Urine Color Yellow (Yellow) 10/30/16 00:30 Urine Turbidity Slightly-cloudy (Clear) 10/30/16 00:30 Urine pH 5.0 (5.0-7.0) 10/30/16 00:30 Ur Specific [place] 1.015 (1.003-1.030) 10/30/16 00:30 Urine Protein 100 mg/dl mg/dL (Negative) 10/30/16 00:30 Urine Glucose (UA) Neg mg/dL (Negative) 10/30/16 00:30 Urine Ketones Tr mg/dL (Negative) 10/30/16 00:30 Urine Blood Neg (Negative) 10/30/16 00:30 Urine Nitrite Neg (Negative) 10/30/16 00:30 Urine Bilirubin Neg (Negative) 10/30/16 00:30 Urine Urobilinogen < 2.0 mg/dL (<2.0) 10/30/16 00:30 Ur Leukocyte Esterase Neg (Negative) 10/30/16 00:30 Urine WBC (Auto) 10.0 /HPF (0.0-6.0) H 10/30/16 00:30 Urine RBC (Auto) 2.0 /HPF (0.0-6.0) 10/30/16 00:30 U Epithel Cells (Auto) 6.0 /HPF (0-13.0) 10/30/16 00:30 Amorphous Crystals 1+ 10/30/16 00:30 Hyaline Casts 16 /LPF 10/30/16 00:30 Granular Casts 4 /LPF 10/30/16 00:30 Urine Mucus Few /HPF 10/30/16 00:30 Blood Type B POSITIVE 10/31/16 17:38 Antibody Screen Negative 10/31/16 17:38
[2016-11-05] MEDS: FLAGYL 500 MG/100 ML 100 ML IV SCH ×3 (08:50→21:50)
[2016-11-05] MEDS: COREG PO SCH ×2 (09:08→21:51)
[2016-11-05] MEDS: PROTONIX PO SCH (09:09)
[2016-11-05] MEDS: LOVENOX SUB-Q SCH (09:10)
[2016-11-05] MEDS: ZOFRAN IV PRN (09:21)
[2016-11-05] MEDS: MORPHINE IV PRN ×2 (09:26→14:56)
--- NOTE | 2016-11-05 10:58 | Progress Note ---
Assessment and Plan 85 y/o female with acute respiratory failure secondary to sepsis from cholecystitis status post exlap. 1. Wean supplemental O2 as tolerated 2. Will see as needed Subjective Date of service: 11/05/16 Interval history: No acute events. Down to 1 liter. Good sats. Objective Vital Signs - 12hr 11/05/16 11/05/16 11/05/16 00:49 05:03 07:25 Temperature 98.6 F 97.6 F 98.9 F Pulse Rate Pulse Rate [ 94 H 84 86 Right Radial] Respiratory 18 20 20 Rate Blood Pressure Blood Pressure 121/68 110/68 127/67 [Right Radial Artery] O2 Sat by Pulse 98 100 96 Oximetry 11/05/16 11/05/16 09:08 10:00 Temperature Pulse Rate 86 Pulse Rate [ Right Radial] Respiratory Rate Blood Pressure 127/67 Blood Pressure [Right Radial Artery] O2 Sat by Pulse 96 Oximetry Constitutional: no acute distress, alert ENT: other (orally intubated) Neck: supple Ascultation: Bilateral: clear Percussion: Bilateral: not dull Cardiovascular: regular rate and rhythm Gastrointestinal: other (post surgical changes) Extremities: no cyanosis, no edema, pink and warm CBC and BMP: 11/05/16 03:18 11/05/16 03:18 ABG, PT/INR, D-dimer: ABG POC ABG pH 7.488 (7.35-7.45) H 11/01/16 05:56 POC ABG pCO2 31.0 (35-45) L 11/01/16 05:56 POC ABG pO2 106 (80-105) H 11/01/16 05:56 POC ABG HCO3 23.5 11/01/16 05:56 POC ABG Total CO2 24 11/01/16 05:56 POC ABG O2 Sat 99 11/01/16 05:56 Abnormal lab findings: Abnormal Labs 10/30/16 10/30/16 10/30/16 09:31 09:31 23:33 WBC 19.0 H RBC 3.11 L Hgb 7.9 L Hct 26.5 L MCH 25 L MCHC RDW 18.2 H Plt Count 460 H Seg Neuts % (Manual) 87.0 H Lymphocytes % (Manual) 3.0 L Seg Neutrophils # Man 16.5 H Lymphocytes # (Manual) 0.6 L Monocytes # (Manual) 1.0 H Basophils # (Manual) 0.2 H POC ABG pH POC ABG pCO2 POC ABG pO2 Sodium Potassium Chloride 97.4 L Carbon Dioxide BUN 61 H Creatinine 7.5 H Glucose 176 H POC Glucose 178 H Calcium 8.0 L AST Albumin 10/31/16 10/31/16 10/31/16 06:30 06:30 07:45 WBC 20.6 H RBC 3.25 L Hgb 8.2 L Hct 27.7 L MCH 25 L MCHC RDW 18.5 H Plt Count Seg Neuts % (Manual) 90.0 H Lymphocytes % (Manual) 3.0 L Seg Neutrophils # Man 18.5 H Lymphocytes # (Manual) 0.6 L Monocytes # (Manual) Basophils # (Manual) POC ABG pH POC ABG pCO2 POC ABG pO2 Sodium Potassium Chloride Carbon Dioxide BUN 32 H Creatinine 4.7 H Glucose 161 H POC Glucose 164 H Calcium 7.7 L AST Albumin 2.5 L 10/31/16 10/31/16 10/31/16 11:15 19:00 21:55 WBC RBC Hgb Hct MCH MCHC RDW Plt Count Seg Neuts % (Manual) Lymphocytes % (Manual) Seg Neutrophils # Man Lymphocytes # (Manual) Monocytes # (Manual) Basophils # (Manual) POC ABG pH 7.579 H POC ABG pCO2 29.6 L POC ABG pO2 304 H Sodium Potassium Chloride Carbon Dioxide BUN Creatinine Glucose POC Glucose 195 H 160 H Calcium AST Albumin 11/01/16 11/01/16 11/01/16 00:50 02:06 05:56 WBC RBC Hgb Hct MCH MCHC RDW Plt Count Seg Neuts % (Manual) Lymphocytes % (Manual) Seg Neutrophils # Man Lymphocytes # (Manual) Monocytes # (Manual) Basophils # (Manual) POC ABG pH 7.488 H POC ABG pCO2 31.0 L POC ABG pO2 106 H Sodium Potassium Chloride Carbon Dioxide 20 L BUN 45 H Creatinine 6.0 H Glucose 159 H POC Glucose 194 H Calcium 7.9 L AST Albumin 11/01/16 11/01/16 11/01/16 08:01 11:32 16:21 WBC RBC Hgb Hct MCH MCHC RDW Plt Count Seg Neuts % (Manual) Lymphocytes % (Manual) Seg Neutrophils # Man Lymphocytes # (Manual) Monocytes # (Manual) Basophils # (Manual) POC ABG pH POC ABG pCO2 POC ABG pO2 Sodium Potassium Chloride Carbon Dioxide BUN Creatinine Glucose POC Glucose 183 H 172 H 189 H Calcium AST Albumin 11/01/16 11/01/16 11/02/16 18:51 22:37 00:10 WBC 23.7 H RBC 3.24 L Hgb 8.3 L Hct 27.4 L MCH 26 L MCHC RDW 18.6 H Plt Count Seg Neuts % (Manual) 91.0 H Lymphocytes % (Manual) 1.0 L Seg Neutrophils # Man 21.6 H Lymphocytes # (Manual) 0.2 L Monocytes # (Manual) Basophils # (Manual) POC ABG pH POC ABG pCO2 POC ABG pO2 Sodium Potassium Chloride 96.9 L Carbon Dioxide BUN Creatinine 2.5 H D Glucose 141 H POC Glucose 162 H Calcium 8.2 L AST 44 H Albumin 2.4 L 11/02/16 11/02/16 11/02/16 04:36 04:36 07:46 WBC 23.3 H RBC 3.23 L Hgb 8.0 L Hct 27.6 L MCH 25 L MCHC 29 L RDW 18.6 H Plt Count Seg Neuts % (Manual) Lymphocytes % (Manual) 6.0 L Seg Neutrophils # Man 16.1 H Lymphocytes # (Manual) Monocytes # (Manual) 1.4 H Basophils # (Manual) POC ABG pH POC ABG pCO2 POC ABG pO2 Sodium Potassium 3.5 L Chloride 94.2 L Carbon Dioxide BUN 20 H Creatinine 2.8 H Glucose 136 H POC Glucose 154 H Calcium AST Albumin 11/02/16 11/02/16 11/03/16 11:58 15:33 00:23 WBC RBC Hgb Hct MCH MCHC RDW Plt Count Seg Neuts % (Manual) Lymphocytes % (Manual) Seg Neutrophils # Man Lymphocytes # (Manual) Monocytes # (Manual) Basophils # (Manual) POC ABG pH POC ABG pCO2 POC ABG pO2 Sodium Potassium Chloride Carbon Dioxide BUN Creatinine Glucose POC Glucose 163 H 147 H 134 H Calcium AST Albumin 11/03/16 11/04/16 11/04/16 07:19 00:06 07:50 WBC RBC Hgb Hct MCH MCHC RDW Plt Count Seg Neuts % (Manual) Lymphocytes % (Manual) Seg Neutrophils # Man Lymphocytes # (Manual) Monocytes # (Manual) Basophils # (Manual) POC ABG pH POC ABG pCO2 POC ABG pO2 Sodium Potassium Chloride Carbon Dioxide BUN Creatinine Glucose POC Glucose 113 H 161 H 198 H Calcium AST Albumin 11/04/16 11/04/16 11/04/16 11:11 16:07 21:50 WBC RBC Hgb Hct MCH MCHC RDW Plt Count Seg Neuts % (Manual) Lymphocytes % (Manual) Seg Neutrophils # Man Lymphocytes # (Manual) Monocytes # (Manual) Basophils # (Manual) POC ABG pH POC ABG pCO2 POC ABG pO2 Sodium Potassium Chloride Carbon Dioxide BUN Creatinine Glucose POC Glucose 205 H 251 H 136 H Calcium AST Albumin 11/05/16 11/05/16 03:18 03:18 WBC 22.1 H RBC 2.87 L Hgb 7.3 L Hct 26.2 L MCH 25 L MCHC 28 L RDW 19.3 H Plt Count Seg Neuts % (Manual) Lymphocytes % (Manual) Seg Neutrophils # Man Lymphocytes # (Manual) Monocytes # (Manual) Basophils # (Manual) POC ABG pH POC ABG pCO2 POC ABG pO2 Sodium 135 L Potassium Chloride 94.8 L Carbon Dioxide BUN 28 H Creatinine 4.5 H D Glucose 128 H POC Glucose Calcium AST Albumin
[2016-11-05] MEDS ORDERED: MILK OF MAGNESIA PO PRN (13:00)
--- NOTE | 2016-11-05 13:03 | Progress Note ---
Subjective Patient Reports: Positive: feels better, flatus Narrative: doing OK , wound OK colostomy with peristomal hernia . taking PO well , will Up MOM , Objective Vital Signs - 12hr 11/05/16 11/05/16 11/05/16 05:03 07:25 09:08 Temperature 97.6 F 98.9 F Pulse Rate 86 Pulse Rate [ 84 86 Right Radial] Respiratory 20 20 Rate Blood Pressure 127/67 Blood Pressure 110/68 127/67 [Right Radial Artery] O2 Sat by Pulse 100 96 Oximetry 11/05/16 10:00 Temperature Pulse Rate Pulse Rate [ Right Radial] Respiratory Rate Blood Pressure Blood Pressure [Right Radial Artery] O2 Sat by Pulse 96 Oximetry - Labs 11/05/16 03:18 11/05/16 03:18 Diabetes panel 11/05/16 Range/Units 03:18 Sodium 135 L (137-145) mmol/L Potassium 3.8 (3.6-5.0) mmol/L Chloride 94.8 L (98-107) mmol/L Carbon Dioxide 23 (22-30) mmol/L BUN 28 H (7-17) mg/dL Creatinine 4.5 H D (0.7-1.2) mg/dL Glucose 128 H (65-100) mg/dL Calcium 8.5 (8.4-10.2) mg/dL Calcium panel 11/05/16 Range/Units 03:18 Calcium 8.5 (8.4-10.2) mg/dL Pituitary panel 11/05/16 Range/Units 03:18 Sodium 135 L (137-145) mmol/L Potassium 3.8 (3.6-5.0) mmol/L Chloride 94.8 L (98-107) mmol/L Carbon Dioxide 23 (22-30) mmol/L BUN 28 H (7-17) mg/dL Creatinine 4.5 H D (0.7-1.2) mg/dL Glucose 128 H (65-100) mg/dL Calcium 8.5 (8.4-10.2) mg/dL Adrenal panel 11/05/16 Range/Units 03:18 Sodium 135 L (137-145) mmol/L Potassium 3.8 (3.6-5.0) mmol/L Chloride 94.8 L (98-107) mmol/L Carbon Dioxide 23 (22-30) mmol/L BUN 28 H (7-17) mg/dL Creatinine 4.5 H D (0.7-1.2) mg/dL Glucose 128 H (65-100) mg/dL Calcium 8.5 (8.4-10.2) mg/dL
--- NOTE | 2016-11-05 13:14 | Progress Note ---
Assessment and Plan - Patient Problems (1) End-stage renal disease (ESRD) Current Visit: Yes Status: Acute Plan to address problem: Hemodialysis on a Sunday, Sunday and Sunday schedule. Next Hemodialysis on Sunday (2) Hypertensive chronic kidney disease with stage 5 chronic kidney disease or end stage renal disease Current Visit: Yes Status: Acute Plan to address problem: Follow-up blood pressure on current medications (3) Anemia in chronic kidney disease Current Visit: No Status: Acute Plan to address problem: Give erythropoietin on dialysis. Follow up hemoglobin in the morning. Transfuse if less than 7 g/dL (4) Colostomy in place Current Visit: Yes Status: Acute Plan to address problem: Continue colostomy care (5) Diabetes mellitus type II, controlled Current Visit: No Status: Acute Qualifiers: Diabetes mellitus complication status: D Diabetes mellitus complication detail: D Diabetic retinopathy severity: D Diabetes mellitus macular edema: D Diabetes mellitus prison insulin use: D Chronic kidney disease stage: C Plan to address problem: Blood sugar management by primary attending Subjective Date of service: 11/05/16 Principal diagnosis: esrd Interval history: Patient seen lying in bed. She has no complaints today except for upper abdominal pain. No chest pain or shortness of breath. Objective - Exam Narrative Exam: Elderly -[place] female lying in bed in no acute distress Neck supple, no thyromegaly no jugular venous distention CVS S1-S2 regular rate rhythm without murmur, rub or gallop Chest clear to auscultation Abdomen soft nondistended, OSTOMY intact, mild epigastric tenderness, no organomegaly no bruit bowel sounds present Extremities no edema no cyanosis or clubbing Neuro awake, alert oriented x3 no gross deficit - Vital Signs Vital signs: Vital Signs - 12hr 11/05/16 11/05/16 11/05/16 05:03 07:25 09:08 Temperature 97.6 F 98.9 F Pulse Rate 86 Pulse Rate [ 84 86 Right Radial] Respiratory 20 20 Rate Blood Pressure 127/67 Blood Pressure 110/68 127/67 [Right Radial Artery] O2 Sat by Pulse 100 96 Oximetry 11/05/16 10:00 Temperature Pulse Rate Pulse Rate [ Right Radial] Respiratory Rate Blood Pressure Blood Pressure [Right Radial Artery] O2 Sat by Pulse 96 Oximetry - Lab 11/05/16 03:18 11/05/16 03:18 Most recent lab results Calcium 8.5 mg/dL (8.4-10.2) 11/05/16 03:18 Phosphorus 3.1 mg/dL (2.5-4.5) 11/02/16 04:36 Magnesium 1.7 mg/dL (1.7-2.3) 11/02/16 04:36
--- NOTE | 2016-11-05 15:32 | Progress Note ---
Assessment and Plan - Patient Problems (1) Acute cholecystitis Current Visit: Yes Status: Acute Plan to address problem: IV abx, Surgery consulted, NPO, supportive care, S/P Lap ko, (2) End-stage renal disease (ESRD) Current Visit: Yes Status: Acute Plan to address problem: Nephrology consulted, dialysis as per renal team. (3) Acute on chronic renal failure Current Visit: No Status: Acute Plan to address problem: Nephrology consulted, supportive care, monitor uop q shift. (4) Chronic systolic heart failure Current Visit: No Status: Acute Plan to address problem: Telemetry monitoring, supportive care, (5) Diabetes mellitus type II, controlled Current Visit: No Status: Acute Qualifiers: Diabetes mellitus complication status: D Diabetes mellitus complication detail: D Diabetic retinopathy severity: D Diabetes mellitus macular edema: D Diabetes mellitus intermodal dispatcher insulin use: D Chronic kidney disease stage: C Plan to address problem: ADA diet, insulin, accu check (6) Debility Current Visit: Yes Status: Acute Plan to address problem: PT consulted, Pending placement. (7) DVT prophylaxis Current Visit: No Status: Acute History Interval history: Pt lying in bed, No reported nursing events. Pt lethargic, fragile, No reported nursing events. Pt continues to show mild cognitive slowing. Hospitalist Physical - Constitutional Vitals: Temp Pulse Resp BP Pulse Ox 97.6 F 88 18 119/66 98 11/05/16 13:32 11/05/16 13:32 11/05/16 13:32 11/05/16 13:32 11/05/16 13:32 General appearance: Present: no acute distress, cachectic - EENT Eyes: Present: PERRL ENT: hearing intact - Neck Neck: Present: supple - Respiratory Respiratory: bilateral: diminished - Cardiovascular Rhythm: regular Heart Sounds: Present: S1 & S2 - Extremities Extremities: no ischemia Peripheral Pulses: within normal limits - Abdominal General gastrointestinal: soft, non-tender, non-distended - Integumentary Integumentary: Present: clear, dry - Psychiatric Psychiatric: cooperative Results - Labs CBC & Chem 7: 11/05/16 03:18 11/05/16 03:18 Labs: Laboratory Last Values WBC 22.1 K/mm3 (4.5-11.0) H 11/05/16 03:18 RBC 2.87 M/mm3 (3.65-5.03) L 11/05/16 03:18 Hgb 7.3 gm/dl (10.1-14.3) L 11/05/16 03:18 Hct 26.2 % (30.3-42.9) L 11/05/16 03:18 MCV 91 fl (79-97) D 11/05/16 03:18 MCH 25 pg (28-32) L 11/05/16 03:18 MCHC 28 % (30-34) L 11/05/16 03:18 RDW 19.3 % (13.2-15.2) H 11/05/16 03:18 Plt Count 387 K/mm3 (140-440) 11/05/16 03:18 Add Manual Diff Complete 11/02/16 04:36 Total Counted 100 11/02/16 04:36 Seg Neuts % (Manual) 69.0 % (40.0-70.0) 11/02/16 04:36 Band Neutrophils % 13.0 % 11/02/16 04:36 Lymphocytes % (Manual) 6.0 % (13.4-35.0) L 11/02/16 04:36 Reactive Lymphs % (Man) 0 % 11/02/16 04:36 Monocytes % (Manual) 6.0 % (0.0-7.3) 11/02/16 04:36 Eosinophils % (Manual) 0 % (0.0-4.3) 11/02/16 04:36 Basophils % (Manual) 0 % (0.0-1.8) 11/02/16 04:36 Metamyelocytes % 6.0 % 11/02/16 04:36 Myelocytes % 0 % 11/02/16 04:36 Promyelocytes % 0 % 11/02/16 04:36 Blast Cells % 0 % 11/02/16 04:36 Nucleated RBC % Not Reportable 11/02/16 04:36 Seg Neutrophils # Man 16.1 K/mm3 (1.8-7.7) H 11/02/16 04:36 Band Neutrophils # 3.0 K/mm3 11/02/16 04:36 Lymphocytes # (Manual) 1.4 K/mm3 (1.2-5.4) 11/02/16 04:36 Abs React Lymphs (Man) 0.0 K/mm3 11/02/16 04:36 Monocytes # (Manual) 1.4 K/mm3 (0.0-0.8) H 11/02/16 04:36 Eosinophils # (Manual) 0.0 K/mm3 (0.0-0.4) 11/02/16 04:36 Basophils # (Manual) 0.0 K/mm3 (0.0-0.1) 11/02/16 04:36 Metamyelocytes # 1.4 K/mm3 11/02/16 04:36 Myelocytes # 0.0 K/mm3 11/02/16 04:36 Promyelocytes # 0.0 K/mm3 11/02/16 04:36 Blast Cells # 0.0 K/mm3 11/02/16 04:36 WBC Morphology Not Reportable 11/02/16 04:36 Hypersegmented Neuts Not Reportable 11/02/16 04:36 Hyposegmented Neuts Not Reportable 11/02/16 04:36 Hypogranular Neuts Not Reportable 11/02/16 04:36 Smudge Cells Not Reportable 11/02/16 04:36 Toxic Granulation Not Reportable 11/02/16 04:36 Toxic Vacuolation Not Reportable 11/02/16 04:36 Dohle Bodies Not Reportable 11/02/16 04:36 Pelger-Huet Anomaly Not Reportable 11/02/16 04:36 Aida Rods Not Reportable 11/02/16 04:36 Platelet Estimate Consistent w auto 11/02/16 04:36 Clumped Platelets Not Reportable 11/02/16 04:36 Plt Clumps, EDTA Not Reportable 11/02/16 04:36 Large Platelets Not Reportable 11/02/16 04:36 Giant Platelets Not Reportable 11/02/16 04:36 Platelet Satelliting Not Reportable 11/02/16 04:36 Plt Morphology Comment Not Reportable 11/02/16 04:36 RBC Morphology Not Reportable 11/02/16 04:36 Dimorphic RBCs Not Reportable 11/02/16 04:36 Polychromasia 1+ 11/02/16 04:36 Hypochromasia 1+ 11/02/16 04:36 Poikilocytosis Not Reportable 11/02/16 04:36 Anisocytosis 1+ 11/02/16 04:36 Microcytosis Not Reportable 11/02/16 04:36 Macrocytosis Not Reportable 11/02/16 04:36 Spherocytes Not Reportable 11/02/16 04:36 Pappenheimer Bodies Not Reportable 11/02/16 04:36 Sickle Cells Not Reportable 11/02/16 04:36 Target Cells Not Reportable 11/02/16 04:36 Tear Drop Cells Not Reportable 11/02/16 04:36 Ovalocytes Not Reportable 11/02/16 04:36 Helmet Cells Not Reportable 11/02/16 04:36 [place] Bodies Not Reportable 11/02/16 04:36 [place] Rings Not Reportable 11/02/16 04:36 [place] Cells Not Reportable 11/02/16 04:36 Bite Cells Not Reportable 11/02/16 04:36 Crenated Cell Not Reportable 11/02/16 04:36 Elliptocytes Not Reportable 11/02/16 04:36 Acanthocytes (Spur) Not Reportable 11/02/16 04:36 Rouleaux Not Reportable 11/02/16 04:36 Hemoglobin C Crystals Not Reportable 11/02/16 04:36 Schistocytes Not Reportable 11/02/16 04:36 Malaria parasites Not Reportable 11/02/16 04:36 Jalil Bodies Not Reportable 11/02/16 04:36 Hem Pathologist Commnt No 11/02/16 04:36 POC ABG pH 7.488 (7.35-7.45) H 11/01/16 05:56 POC ABG pCO2 31.0 (35-45) L 11/01/16 05:56 POC ABG pO2 106 (80-105) H 11/01/16 05:56 POC ABG HCO3 23.5 11/01/16 05:56 POC ABG Total CO2 24 11/01/16 05:56 POC ABG O2 Sat 99 11/01/16 05:56 POC ABG Base Excess 0 11/01/16 05:56 FiO2 40 % 11/01/16 05:56 Sodium 135 mmol/L (137-145) L 11/05/16 03:18 Potassium 3.8 mmol/L (3.6-5.0) 11/05/16 03:18 Chloride 94.8 mmol/L (98-107) L 11/05/16 03:18 Carbon Dioxide 23 mmol/L (22-30) 11/05/16 03:18 Anion Gap 21 mmol/L 11/05/16 03:18 BUN 28 mg/dL (7-17) H 11/05/16 03:18 Creatinine 4.5 mg/dL (0.7-1.2) H D 11/05/16 03:18 Estimated GFR 11 ml/min 11/05/16 03:18 BUN/Creatinine Ratio 6.22 % 11/05/16 03:18 Glucose 128 mg/dL (65-100) H 11/05/16 03:18 POC Glucose 219 (70-105) H 11/05/16 11:46 Calcium 8.5 mg/dL (8.4-10.2) 11/05/16 03:18 Phosphorus 3.1 mg/dL (2.5-4.5) 11/02/16 04:36 Magnesium 1.7 mg/dL (1.7-2.3) 11/02/16 04:36 Total Bilirubin 0.6 mg/dL (0.1-1.2) 11/01/16 22:37 AST 44 units/L (5-40) H 11/01/16 22:37 ALT 18 units/L (7-56) 11/01/16 22:37 Alkaline Phosphatase 109 units/L (35-129) 11/01/16 22:37 Total Protein 7.2 g/dL (6.3-8.2) 11/01/16 22:37 Albumin 2.4 g/dL (3.9-5) L 11/01/16 22:37 Albumin/Globulin Ratio 0.5 % 11/01/16 22:37 Urine Color Yellow (Yellow) 10/30/16 00:30 Urine Turbidity Slightly-cloudy (Clear) 10/30/16 00:30 Urine pH 5.0 (5.0-7.0) 10/30/16 00:30 Ur Specific [place] 1.015 (1.003-1.030) 10/30/16 00:30 Urine Protein 100 mg/dl mg/dL (Negative) 10/30/16 00:30 Urine Glucose (UA) Neg mg/dL (Negative) 10/30/16 00:30 Urine Ketones Tr mg/dL (Negative) 10/30/16 00:30 Urine Blood Neg (Negative) 10/30/16 00:30 Urine Nitrite Neg (Negative) 10/30/16 00:30 Urine Bilirubin Neg (Negative) 10/30/16 00:30 Urine Urobilinogen < 2.0 mg/dL (<2.0) 10/30/16 00:30 Ur Leukocyte Esterase Neg (Negative) 10/30/16 00:30 Urine WBC (Auto) 10.0 /HPF (0.0-6.0) H 10/30/16 00:30 Urine RBC (Auto) 2.0 /HPF (0.0-6.0) 10/30/16 00:30 U Epithel Cells (Auto) 6.0 /HPF (0-13.0) 10/30/16 00:30 Amorphous Crystals 1+ 10/30/16 00:30 Hyaline Casts 16 /LPF 10/30/16 00:30 Granular Casts 4 /LPF 10/30/16 00:30 Urine Mucus Few /HPF 10/30/16 00:30 Blood Type B POSITIVE 10/31/16 17:38 Antibody Screen Negative 10/31/16 17:38
[2016-11-06] MEDS: MORPHINE IV PRN ×2 (01:41→15:07)
[2016-11-06] MEDS: HEPARIN IV PRN (13:13)
--- NOTE | 2016-11-06 13:33 | Progress Note ---
Assessment and Plan - Patient Problems (1) End-stage renal disease (ESRD) Current Visit: Yes Status: Chronic Plan to address problem: Continue HD on M//F schedule. Will adjust UF as indicated (2) Hypertensive chronic kidney disease with stage 5 chronic kidney disease or end stage renal disease Current Visit: Yes Status: Chronic Plan to address problem: BP currently well controlled. monitor on current meds (3) Anemia in chronic kidney disease Current Visit: No Status: Chronic Plan to address problem: continue EPO w/ HD, will consider blood transfusion if Hb < 7 (4) Chronic systolic heart failure Current Visit: No Status: Chronic Plan to address problem: pt currently euvolemic, will adjust UF as indicated (5) Diabetes mellitus type II, controlled Current Visit: No Status: Chronic Qualifiers: Diabetes mellitus complication status: with kidney complications Diabetes mellitus complication detail: D Diabetic retinopathy severity: D Diabetes mellitus macular edema: D Diabetes mellitus terminal press operator insulin use: D Chronic kidney disease stage: on chronic dialysis Plan to address problem: glucose control as per primary attending (6) Acute cholecystitis Current Visit: Yes Status: Acute Plan to address problem: s/p exlap/open cholecystectomy/colostomy. continue ABXs, dose adjusted to HD. Subjective Date of service: 11/06/16 Principal diagnosis: esrd Interval history: Patient seen and examined during HD, in NAD, BP 124/70, P 93, UF target 2.5L. Objective - Vital Signs Vital signs: Vital Signs - 12hr 11/06/16 11/06/16 11/06/16 01:41 04:20 07:48 Temperature 98.6 F Pulse Rate Pulse Rate [ 87 Right Radial] Respiratory 18 18 Rate Blood Pressure Blood Pressure 117/77 [Right Radial Artery] O2 Sat by Pulse 100 97 Oximetry 11/06/16 11/06/16 11/06/16 08:38 09:40 10:00 Temperature 98.4 F Pulse Rate 84 86 66 Pulse Rate [ Right Radial] Respiratory 18 Rate Blood Pressure 139/72 122/63 Blood Pressure [Right Radial Artery] O2 Sat by Pulse Oximetry 11/06/16 11/06/16 11/06/16 10:30 10:45 11:00 Temperature Pulse Rate 70 90 89 Pulse Rate [ Right Radial] Respiratory Rate Blood Pressure 123/53 122/66 125/69 Blood Pressure [Right Radial Artery] O2 Sat by Pulse Oximetry 11/06/16 11/06/16 11/06/16 11:15 11:30 11:45 Temperature Pulse Rate 91 H 95 H 94 H Pulse Rate [ Right Radial] Respiratory Rate Blood Pressure 121/48 107/47 126/75 Blood Pressure [Right Radial Artery] O2 Sat by Pulse Oximetry 11/06/16 11/06/16 11/06/16 12:00 12:15 12:30 Temperature Pulse Rate 83 91 H 95 H Pulse Rate [ Right Radial] Respiratory Rate Blood Pressure 133/73 141/51 129/72 Blood Pressure [Right Radial Artery] O2 Sat by Pulse Oximetry 11/06/16 11/06/16 12:45 13:00 Temperature Pulse Rate 96 H 93 H Pulse Rate [ Right Radial] Respiratory Rate Blood Pressure 140/52 124/70 Blood Pressure [Right Radial Artery] O2 Sat by Pulse Oximetry - General Appearance General appearance: appears stated age, chronically ill EENT: ATNC, PERRL, mucous membranes moist Neck: no JVD Respiratory: Present: Clear to Ascultation Cardiology: regular, S1S2 Gastrointestinal: normal, other (colostomy in place ) Integumentary: no rash, other (no edema ) Neurologic: no focal deficit, alert and oriented x3, strength 5/5, CN 3-12 intact Psychiatric: mood/affect appropriate, cooperative - Lab 11/05/16 03:18 11/05/16 03:18 Most recent lab results Calcium 8.5 mg/dL (8.4-10.2) 11/05/16 03:18 Phosphorus 3.1 mg/dL (2.5-4.5) 11/02/16 04:36 Magnesium 1.7 mg/dL (1.7-2.3) 11/02/16 04:36
[2016-11-06] MEDS: FLAGYL 500 MG/100 ML 500 MG/100 ML BAG IV SCH ×2 (13:50→22:38)
[2016-11-06] MEDS: LOVENOX SUB-Q SCH (13:50)
[2016-11-06] MEDS: COREG PO SCH ×2 (13:51→22:37)
[2016-11-06] MEDS: PROTONIX PO SCH (13:51)
[2016-11-06] MEDS: FLAGYL 500 MG/100 ML 100 ML IV SCH (14:54)
[2016-11-06] MEDS: LEVAQUIN 500MG/100ML 100 ML IV SCH (14:54)
--- NOTE | 2016-11-06 15:24 | Progress Note ---
Assessment and Plan Imp: 1. MRSA bacteremia, ? source 2. Acute cholecystitis 3. s/p Cholecystectomy 4. Acute respiratory failure, hypoxia 5. ESRD Rec: 1. Do not believe the MRSA in blood is a contaminant; repeat cultures now; contact precautions; consider Vancomycin and would consider ID consult as well 2. IS 10x/hour, OOB; f/u CXR periodically 3. Stable pulm-peng Plan of care reviewed w/ patient, she understands/agrees Subjective Date of service: 11/06/16 Principal diagnosis: esrd Interval history: No events. C/o abdominal pain in RUQ, improving. Denies SOB, chest pain, cough. Active Medications Acetaminophen (Tylenol) 650 mg PO Q4H PRN PRN Reason: Pain MILD(1-3)/Fever >100.5/LEBRON Bisacodyl (Dulcolax) [address] QDAY PRN PRN Reason: Constipation unrelieved by MOM Carvedilol (Coreg) 3.125 mg PO BID [facility] Last Admin: 11/06/16 13:51 Dose: 3.125 mg Enoxaparin Sodium (Lovenox) 30 mg SUB-Q QDAY [facility] Last Admin: 11/06/16 13:50 Dose: 30 mg Heparin Sodium (Porcine) (Heparin) 5,000 unit IV MERE PRN PRN Reason: hemodialysis Last Admin: 11/06/16 13:13 Dose: 5,000 unit Heparin Sodium (Porcine) (Heparin) 5,000 unit IV MERE PRN PRN Reason: hemodialysis Hydrophilic Ointment (Vaseline Lip Therapy) 1 applic TP Q2HR PRN PRN Reason: Dry Lips Sodium Chloride (Nacl 0.9% 1000 Ml) 100 mls @ 100 mls/hr IV PRN PRN PRN Reason: FOR DIALYSIS Sodium Chloride (Nacl 0.9% 1000 Ml) 100 mls @ 999 mls/hr IV MERE PRN PRN Reason: Hypotension Metronidazole (Flagyl 500 Mg/100 Ml) 500 mg in 100 mls @ 200 mls/hr IV TID [facility] Stop: 11/10/16 08:29 Last Admin: 11/06/16 13:50 Dose: 200 mls/hr Levofloxacin/Dextrose (Levaquin 500mg/100ml) 500 mg in 100 mls @ 100 mls/hr IV Q48HR YAMILETH PRN Reason: Protocol Stop: 11/10/16 09:59 Magnesium Hydroxide (Milk Of Magnesia) 30 ml PO Q4H PRN PRN Reason: Constipation Last Admin: 11/05/16 14:56 Dose: 30 ml Morphine Sulfate (Morphine) 2 mg IV Q4H PRN PRN Reason: Pain, Moderate (4-6) Last Admin: 11/06/16 15:07 Dose: 2 mg Morphine Sulfate (Morphine) 2 mg IV Q3H PRN PRN Reason: Pain, Moderate (4-6) Last Admin: 11/06/16 01:41 Dose: 2 mg Multi-Ingred Cream/Lotion/Oil/Oint (Artificial Tears Ophth Oint) 1 applic OU Q4HR PRN PRN Reason: Dry Eye(s) Ondansetron HCl (Zofran) 4 mg IV Q8H PRN PRN Reason: N/V unrelieved by Melonie Last Admin: 11/05/16 09:21 Dose: 4 mg Pantoprazole Sodium (Protonix) 20 mg PO QDAY YAMILETH Last Admin: 11/06/16 13:51 Dose: 20 mg Objective Vital Signs - 12hr 11/06/16 11/06/16 11/06/16 04:20 07:45 07:48 Temperature 98.6 F 97.5 F L Pulse Rate Pulse Rate [ 87 88 Right Radial] Respiratory 18 20 Rate Blood Pressure Blood Pressure 117/77 131/62 [Right Radial Artery] O2 Sat by Pulse 100 97 97 Oximetry 11/06/16 11/06/16 11/06/16 08:38 09:40 10:00 Temperature 98.4 F Pulse Rate 84 86 66 Pulse Rate [ Right Radial] Respiratory 18 Rate Blood Pressure 139/72 122/63 Blood Pressure [Right Radial Artery] O2 Sat by Pulse Oximetry 11/06/16 11/06/16 11/06/16 10:30 10:45 11:00 Temperature Pulse Rate 70 90 89 Pulse Rate [ Right Radial] Respiratory Rate Blood Pressure 123/53 122/66 125/69 Blood Pressure [Right Radial Artery] O2 Sat by Pulse Oximetry 11/06/16 11/06/16 11/06/16 11:15 11:30 11:45 Temperature Pulse Rate 91 H 95 H 94 H Pulse Rate [ Right Radial] Respiratory Rate Blood Pressure 121/48 107/47 126/75 Blood Pressure [Right Radial Artery] O2 Sat by Pulse Oximetry 11/06/16 11/06/16 11/06/16 12:00 12:15 12:30 Temperature Pulse Rate 83 91 H 95 H Pulse Rate [ Right Radial] Respiratory Rate Blood Pressure 133/73 141/51 129/72 Blood Pressure [Right Radial Artery] O2 Sat by Pulse Oximetry 11/06/16 11/06/16 12:45 13:00 Temperature Pulse Rate 96 H 93 H Pulse Rate [ Right Radial] Respiratory Rate Blood Pressure 140/52 124/70 Blood Pressure [Right Radial Artery] O2 Sat by Pulse Oximetry Constitutional: no acute distress, alert ENT: oropharynx moist Neck: supple Effort: normal Ascultation: Bilateral: clear Percussion: Bilateral: not dull Cardiovascular: regular rate and rhythm (no mrg) Gastrointestinal: normoactive bowel sounds, soft, non-tender, non-distended, other (incision looks good) Extremities: no cyanosis, no edema, pink and warm Neurologic: normal mental status Psychiatric: mood appropriate, affect normal CBC and BMP: 11/05/16 03:18 11/05/16 03:18 ABG, PT/INR, D-dimer: ABG POC ABG pH 7.488 (7.35-7.45) H 11/01/16 05:56 POC ABG pCO2 31.0 (35-45) L 11/01/16 05:56 POC ABG pO2 106 (80-105) H 11/01/16 05:56 POC ABG HCO3 23.5 11/01/16 05:56 POC ABG Total CO2 24 11/01/16 05:56 POC ABG O2 Sat 99 11/01/16 05:56 Abnormal lab findings: Abnormal Labs 10/30/16 10/30/16 10/30/16 09:31 09:31 23:33 WBC 19.0 H RBC 3.11 L Hgb 7.9 L Hct 26.5 L MCH 25 L MCHC RDW 18.2 H Plt Count 460 H Seg Neuts % (Manual) 87.0 H Lymphocytes % (Manual) 3.0 L Seg Neutrophils # Man 16.5 H Lymphocytes # (Manual) 0.6 L Monocytes # (Manual) 1.0 H Basophils # (Manual) 0.2 H POC ABG pH POC ABG pCO2 POC ABG pO2 Sodium Potassium Chloride 97.4 L Carbon Dioxide BUN 61 H Creatinine 7.5 H Glucose 176 H POC Glucose 178 H Calcium 8.0 L AST Albumin 10/31/16 10/31/16 10/31/16 06:30 06:30 07:45 WBC 20.6 H RBC 3.25 L Hgb 8.2 L Hct 27.7 L MCH 25 L MCHC RDW 18.5 H Plt Count Seg Neuts % (Manual) 90.0 H Lymphocytes % (Manual) 3.0 L Seg Neutrophils # Man 18.5 H Lymphocytes # (Manual) 0.6 L Monocytes # (Manual) Basophils # (Manual) POC ABG pH POC ABG pCO2 POC ABG pO2 Sodium Potassium Chloride Carbon Dioxide BUN 32 H Creatinine 4.7 H Glucose 161 H POC Glucose 164 H Calcium 7.7 L AST Albumin 2.5 L 10/31/16 10/31/16 10/31/16 11:15 19:00 21:55 WBC RBC Hgb Hct MCH MCHC RDW Plt Count Seg Neuts % (Manual) Lymphocytes % (Manual) Seg Neutrophils # Man Lymphocytes # (Manual) Monocytes # (Manual) Basophils # (Manual) POC ABG pH 7.579 H POC ABG pCO2 29.6 L POC ABG pO2 304 H Sodium Potassium Chloride Carbon Dioxide BUN Creatinine Glucose POC Glucose 195 H 160 H Calcium AST Albumin 11/01/16 11/01/16 11/01/16 00:50 02:06 05:56 WBC RBC Hgb Hct MCH MCHC RDW Plt Count Seg Neuts % (Manual) Lymphocytes % (Manual) Seg Neutrophils # Man Lymphocytes # (Manual) Monocytes # (Manual) Basophils # (Manual) POC ABG pH 7.488 H POC ABG pCO2 31.0 L POC ABG pO2 106 H Sodium Potassium Chloride Carbon Dioxide 20 L BUN 45 H Creatinine 6.0 H Glucose 159 H POC Glucose 194 H Calcium 7.9 L AST Albumin 11/01/16 11/01/16 11/01/16 08:01 11:32 16:21 WBC RBC Hgb Hct MCH MCHC RDW Plt Count Seg Neuts % (Manual) Lymphocytes % (Manual) Seg Neutrophils # Man Lymphocytes # (Manual) Monocytes # (Manual) Basophils # (Manual) POC ABG pH POC ABG pCO2 POC ABG pO2 Sodium Potassium Chloride Carbon Dioxide BUN Creatinine Glucose POC Glucose 183 H 172 H 189 H Calcium AST Albumin 11/01/16 11/01/16 11/02/16 18:51 22:37 00:10 WBC 23.7 H RBC 3.24 L Hgb 8.3 L Hct 27.4 L MCH 26 L MCHC RDW 18.6 H Plt Count Seg Neuts % (Manual) 91.0 H Lymphocytes % (Manual) 1.0 L Seg Neutrophils # Man 21.6 H Lymphocytes # (Manual) 0.2 L Monocytes # (Manual) Basophils # (Manual) POC ABG pH POC ABG pCO2 POC ABG pO2 Sodium Potassium Chloride 96.9 L Carbon Dioxide BUN Creatinine 2.5 H D Glucose 141 H POC Glucose 162 H Calcium 8.2 L AST 44 H Albumin 2.4 L 11/02/16 11/02/16 11/02/16 04:36 04:36 07:46 WBC 23.3 H RBC 3.23 L Hgb 8.0 L Hct 27.6 L MCH 25 L MCHC 29 L RDW 18.6 H Plt Count Seg Neuts % (Manual) Lymphocytes % (Manual) 6.0 L Seg Neutrophils # Man 16.1 H Lymphocytes # (Manual) Monocytes # (Manual) 1.4 H Basophils # (Manual) POC ABG pH POC ABG pCO2 POC ABG pO2 Sodium Potassium 3.5 L Chloride 94.2 L Carbon Dioxide BUN 20 H Creatinine 2.8 H Glucose 136 H POC Glucose 154 H Calcium AST Albumin 11/02/16 11/02/16 11/03/16 11:58 15:33 00:23 WBC RBC Hgb Hct MCH MCHC RDW Plt Count Seg Neuts % (Manual) Lymphocytes % (Manual) Seg Neutrophils # Man Lymphocytes # (Manual) Monocytes # (Manual) Basophils # (Manual) POC ABG pH POC ABG pCO2 POC ABG pO2 Sodium Potassium Chloride Carbon Dioxide BUN Creatinine Glucose POC Glucose 163 H 147 H 134 H Calcium AST Albumin 11/03/16 11/04/16 11/04/16 07:19 00:06 07:50 WBC RBC Hgb Hct MCH MCHC RDW Plt Count Seg Neuts % (Manual) Lymphocytes % (Manual) Seg Neutrophils # Man Lymphocytes # (Manual) Monocytes # (Manual) Basophils # (Manual) POC ABG pH POC ABG pCO2 POC ABG pO2 Sodium Potassium Chloride Carbon Dioxide BUN Creatinine Glucose POC Glucose 113 H 161 H 198 H Calcium AST Albumin 11/04/16 11/04/16 11/04/16 11:11 16:07 21:50 WBC RBC Hgb Hct MCH MCHC RDW Plt Count Seg Neuts % (Manual) Lymphocytes % (Manual) Seg Neutrophils # Man Lymphocytes # (Manual) Monocytes # (Manual) Basophils # (Manual) POC ABG pH POC ABG pCO2 POC ABG pO2 Sodium Potassium Chloride Carbon Dioxide BUN Creatinine Glucose POC Glucose 205 H 251 H 136 H Calcium AST Albumin 11/05/16 11/05/16 11/05/16 03:18 03:18 07:14 WBC 22.1 H RBC 2.87 L Hgb 7.3 L Hct 26.2 L MCH 25 L MCHC 28 L RDW 19.3 H Plt Count Seg Neuts % (Manual) Lymphocytes % (Manual) Seg Neutrophils # Man Lymphocytes # (Manual) Monocytes # (Manual) Basophils # (Manual) POC ABG pH POC ABG pCO2 POC ABG pO2 Sodium 135 L Potassium Chloride 94.8 L Carbon Dioxide BUN 28 H Creatinine 4.5 H D Glucose 128 H POC Glucose 114 H Calcium AST Albumin 11/05/16 11/05/16 11:46 16:27 WBC RBC Hgb Hct MCH MCHC RDW Plt Count Seg Neuts % (Manual) Lymphocytes % (Manual) Seg Neutrophils # Man Lymphocytes # (Manual) Monocytes # (Manual) Basophils # (Manual) POC ABG pH POC ABG pCO2 POC ABG pO2 Sodium Potassium Chloride Carbon Dioxide BUN Creatinine Glucose POC Glucose 219 H 217 H Calcium AST Albumin Chest x-ray: report reviewed, image reviewed (atelectasis)
--- NOTE | 2016-11-06 16:38 | Progress Note ---
Subjective Narrative: surgicall y Pt is stable , had a BM as per her saying . will remove alternate stapies , Objective Vital Signs - 12hr 11/06/16 11/06/16 11/06/16 07:45 07:48 08:38 Temperature 97.5 F L Pulse Rate 84 Pulse Rate [ 88 Right Radial] Respiratory 20 Rate Blood Pressure Blood Pressure 131/62 [Right Radial Artery] O2 Sat by Pulse 97 97 Oximetry 11/06/16 11/06/16 11/06/16 09:40 10:00 10:30 Temperature 98.4 F Pulse Rate 86 66 70 Pulse Rate [ Right Radial] Respiratory 18 Rate Blood Pressure 139/72 122/63 123/53 Blood Pressure [Right Radial Artery] O2 Sat by Pulse Oximetry 11/06/16 11/06/16 11/06/16 10:45 11:00 11:15 Temperature Pulse Rate 90 89 91 H Pulse Rate [ Right Radial] Respiratory Rate Blood Pressure 122/66 125/69 121/48 Blood Pressure [Right Radial Artery] O2 Sat by Pulse Oximetry 11/06/16 11/06/16 11/06/16 11:30 11:45 12:00 Temperature Pulse Rate 95 H 94 H 83 Pulse Rate [ Right Radial] Respiratory Rate Blood Pressure 107/47 126/75 133/73 Blood Pressure [Right Radial Artery] O2 Sat by Pulse Oximetry 11/06/16 11/06/16 11/06/16 12:15 12:30 12:45 Temperature Pulse Rate 91 H 95 H 96 H Pulse Rate [ Right Radial] Respiratory Rate Blood Pressure 141/51 129/72 140/52 Blood Pressure [Right Radial Artery] O2 Sat by Pulse Oximetry 11/06/16 13:00 Temperature Pulse Rate 93 H Pulse Rate [ Right Radial] Respiratory Rate Blood Pressure 124/70 Blood Pressure [Right Radial Artery] O2 Sat by Pulse Oximetry - Labs 11/05/16 03:18 11/05/16 03:18
--- NOTE | 2016-11-06 19:41 | Progress Note ---
Assessment and Plan - Patient Problems (1) Acute cholecystitis Current Visit: Yes Status: Resolved (2) End-stage renal disease (ESRD) Current Visit: Yes Status: Chronic Plan to address problem: Nephrology consulted, dialysis as per renal team. (3) Acute on chronic renal failure Current Visit: No Status: Acute Plan to address problem: Nephrology consulted, supportive care, monitor uop q shift. (4) Chronic systolic heart failure Current Visit: No Status: Chronic Plan to address problem: Telemetry monitoring, supportive care, (5) Diabetes mellitus type II, controlled Current Visit: No Status: Chronic Qualifiers: Diabetes mellitus complication status: with kidney complications Diabetes mellitus complication detail: D Diabetic retinopathy severity: D Diabetes mellitus macular edema: D Diabetes mellitus [facility] insulin use: D Chronic kidney disease stage: on chronic dialysis Plan to address problem: ADA diet, insulin, accu check (6) Debility Current Visit: Yes Status: Acute Plan to address problem: PT consulted, Pending placement. (7) DVT prophylaxis Current Visit: No Status: Acute History Interval history: Pt lying in bed, No reported nursing events. Pt lethargic, fragile, No reported nursing events. Pt continues to show mild cognitive slowing. Pt medically optimized. Case management consulted. Pt pending placement. Hospitalist Physical - Constitutional Vitals: Temp Pulse Resp BP Pulse Ox 98.0 F 98 H 20 119/66 97 11/06/16 18:05 11/06/16 18:05 11/06/16 18:05 11/06/16 18:05 11/06/16 07:48 General appearance: Present: no acute distress, cachectic - EENT Eyes: Present: PERRL ENT: hearing intact - Neck Neck: Present: supple - Respiratory Respiratory: bilateral: diminished - Cardiovascular Rhythm: regular Heart Sounds: Present: S1 & S2 - Extremities Extremities: no ischemia Peripheral Pulses: within normal limits - Abdominal General gastrointestinal: soft, non-tender, non-distended - Integumentary Integumentary: Present: clear, dry - Psychiatric Psychiatric: appropriate mood/affect, cooperative - Neurologic Neurologic: CNII-XII intact Results - Labs CBC & Chem 7: 11/05/16 03:18 11/05/16 03:18 Labs: Laboratory Last Values WBC 22.1 K/mm3 (4.5-11.0) H 11/05/16 03:18 RBC 2.87 M/mm3 (3.65-5.03) L 11/05/16 03:18 Hgb 7.3 gm/dl (10.1-14.3) L 11/05/16 03:18 Hct 26.2 % (30.3-42.9) L 11/05/16 03:18 MCV 91 fl (79-97) D 11/05/16 03:18 MCH 25 pg (28-32) L 11/05/16 03:18 MCHC 28 % (30-34) L 11/05/16 03:18 RDW 19.3 % (13.2-15.2) H 11/05/16 03:18 Plt Count 387 K/mm3 (140-440) 11/05/16 03:18 Add Manual Diff Complete 11/02/16 04:36 Total Counted 100 11/02/16 04:36 Seg Neuts % (Manual) 69.0 % (40.0-70.0) 11/02/16 04:36 Band Neutrophils % 13.0 % 11/02/16 04:36 Lymphocytes % (Manual) 6.0 % (13.4-35.0) L 11/02/16 04:36 Reactive Lymphs % (Man) 0 % 11/02/16 04:36 Monocytes % (Manual) 6.0 % (0.0-7.3) 11/02/16 04:36 Eosinophils % (Manual) 0 % (0.0-4.3) 11/02/16 04:36 Basophils % (Manual) 0 % (0.0-1.8) 11/02/16 04:36 Metamyelocytes % 6.0 % 11/02/16 04:36 Myelocytes % 0 % 11/02/16 04:36 Promyelocytes % 0 % 11/02/16 04:36 Blast Cells % 0 % 11/02/16 04:36 Nucleated RBC % Not Reportable 11/02/16 04:36 Seg Neutrophils # Man 16.1 K/mm3 (1.8-7.7) H 11/02/16 04:36 Band Neutrophils # 3.0 K/mm3 11/02/16 04:36 Lymphocytes # (Manual) 1.4 K/mm3 (1.2-5.4) 11/02/16 04:36 Abs React Lymphs (Man) 0.0 K/mm3 11/02/16 04:36 Monocytes # (Manual) 1.4 K/mm3 (0.0-0.8) H 11/02/16 04:36 Eosinophils # (Manual) 0.0 K/mm3 (0.0-0.4) 11/02/16 04:36 Basophils # (Manual) 0.0 K/mm3 (0.0-0.1) 11/02/16 04:36 Metamyelocytes # 1.4 K/mm3 11/02/16 04:36 Myelocytes # 0.0 K/mm3 11/02/16 04:36 Promyelocytes # 0.0 K/mm3 11/02/16 04:36 Blast Cells # 0.0 K/mm3 11/02/16 04:36 WBC Morphology Not Reportable 11/02/16 04:36 Hypersegmented Neuts Not Reportable 11/02/16 04:36 Hyposegmented Neuts Not Reportable 11/02/16 04:36 Hypogranular Neuts Not Reportable 11/02/16 04:36 Smudge Cells Not Reportable 11/02/16 04:36 Toxic Granulation Not Reportable 11/02/16 04:36 Toxic Vacuolation Not Reportable 11/02/16 04:36 Dohle Bodies Not Reportable 11/02/16 04:36 Pelger-Huet Anomaly Not Reportable 11/02/16 04:36 Aida Rods Not Reportable 11/02/16 04:36 Platelet Estimate Consistent w auto 11/02/16 04:36 Clumped Platelets Not Reportable 11/02/16 04:36 Plt Clumps, EDTA Not Reportable 11/02/16 04:36 Large Platelets Not Reportable 11/02/16 04:36 Giant Platelets Not Reportable 11/02/16 04:36 Platelet Satelliting Not Reportable 11/02/16 04:36 Plt Morphology Comment Not Reportable 11/02/16 04:36 RBC Morphology Not Reportable 11/02/16 04:36 Dimorphic RBCs Not Reportable 11/02/16 04:36 Polychromasia 1+ 11/02/16 04:36 Hypochromasia 1+ 11/02/16 04:36 Poikilocytosis Not Reportable 11/02/16 04:36 Anisocytosis 1+ 11/02/16 04:36 Microcytosis Not Reportable 11/02/16 04:36 Macrocytosis Not Reportable 11/02/16 04:36 Spherocytes Not Reportable 11/02/16 04:36 Pappenheimer Bodies Not Reportable 11/02/16 04:36 Sickle Cells Not Reportable 11/02/16 04:36 Target Cells Not Reportable 11/02/16 04:36 Tear Drop Cells Not Reportable 11/02/16 04:36 Ovalocytes Not Reportable 11/02/16 04:36 Helmet Cells Not Reportable 11/02/16 04:36 [place] Bodies Not Reportable 11/02/16 04:36 [place] Rings Not Reportable 11/02/16 04:36 Bernard Cells Not Reportable 11/02/16 04:36 Bite Cells Not Reportable 11/02/16 04:36 Crenated Cell Not Reportable 11/02/16 04:36 Elliptocytes Not Reportable 11/02/16 04:36 Acanthocytes (Spur) Not Reportable 11/02/16 04:36 Rouleaux Not Reportable 11/02/16 04:36 Hemoglobin C Crystals Not Reportable 11/02/16 04:36 Schistocytes Not Reportable 11/02/16 04:36 Malaria parasites Not Reportable 11/02/16 04:36 Jalil Bodies Not Reportable 11/02/16 04:36 Hem Pathologist Commnt No 11/02/16 04:36 POC ABG pH 7.488 (7.35-7.45) H 11/01/16 05:56 POC ABG pCO2 31.0 (35-45) L 11/01/16 05:56 POC ABG pO2 106 (80-105) H 11/01/16 05:56 POC ABG HCO3 23.5 11/01/16 05:56 POC ABG Total CO2 24 11/01/16 05:56 POC ABG O2 Sat 99 11/01/16 05:56 POC ABG Base Excess 0 11/01/16 05:56 FiO2 40 % 11/01/16 05:56 Sodium 135 mmol/L (137-145) L 11/05/16 03:18 Potassium 3.8 mmol/L (3.6-5.0) 11/05/16 03:18 Chloride 94.8 mmol/L (98-107) L 11/05/16 03:18 Carbon Dioxide 23 mmol/L (22-30) 11/05/16 03:18 Anion Gap 21 mmol/L 11/05/16 03:18 BUN 28 mg/dL (7-17) H 11/05/16 03:18 Creatinine 4.5 mg/dL (0.7-1.2) H D 11/05/16 03:18 Estimated GFR 11 ml/min 11/05/16 03:18 BUN/Creatinine Ratio 6.22 % 11/05/16 03:18 Glucose 128 mg/dL (65-100) H 11/05/16 03:18 POC Glucose 217 (70-105) H 11/05/16 16:27 Calcium 8.5 mg/dL (8.4-10.2) 11/05/16 03:18 Phosphorus 3.1 mg/dL (2.5-4.5) 11/02/16 04:36 Magnesium 1.7 mg/dL (1.7-2.3) 11/02/16 04:36 Total Bilirubin 0.6 mg/dL (0.1-1.2) 11/01/16 22:37 AST 44 units/L (5-40) H 11/01/16 22:37 ALT 18 units/L (7-56) 11/01/16 22:37 Alkaline Phosphatase 109 units/L (35-129) 11/01/16 22:37 Total Protein 7.2 g/dL (6.3-8.2) 11/01/16 22:37 Albumin 2.4 g/dL (3.9-5) L 11/01/16 22:37 Albumin/Globulin Ratio 0.5 % 11/01/16 22:37 Urine Color Yellow (Yellow) 10/30/16 00:30 Urine Turbidity Slightly-cloudy (Clear) 10/30/16 00:30 Urine pH 5.0 (5.0-7.0) 10/30/16 00:30 Ur Specific [place] 1.015 (1.003-1.030) 10/30/16 00:30 Urine Protein 100 mg/dl mg/dL (Negative) 10/30/16 00:30 Urine Glucose (UA) Neg mg/dL (Negative) 10/30/16 00:30 Urine Ketones Tr mg/dL (Negative) 10/30/16 00:30 Urine Blood Neg (Negative) 10/30/16 00:30 Urine Nitrite Neg (Negative) 10/30/16 00:30 Urine Bilirubin Neg (Negative) 10/30/16 00:30 Urine Urobilinogen < 2.0 mg/dL (<2.0) 10/30/16 00:30 Ur Leukocyte Esterase Neg (Negative) 10/30/16 00:30 Urine WBC (Auto) 10.0 /HPF (0.0-6.0) H 10/30/16 00:30 Urine RBC (Auto) 2.0 /HPF (0.0-6.0) 10/30/16 00:30 U Epithel Cells (Auto) 6.0 /HPF (0-13.0) 10/30/16 00:30 Amorphous Crystals 1+ 10/30/16 00:30 Hyaline Casts 16 /LPF 10/30/16 00:30 Granular Casts 4 /LPF 10/30/16 00:30 Urine Mucus Few /HPF 10/30/16 00:30 Blood Type B POSITIVE 10/31/16 17:38 Antibody Screen Negative 10/31/16 17:38
[2016-11-07] MEDS: MORPHINE IV PRN ×2 (09:26→15:52)
[2016-11-07] MEDS: LOVENOX SUB-Q SCH (09:27)
[2016-11-07] MEDS: FLAGYL 500 MG/100 ML 500 MG/100 ML BAG IV SCH (09:27)
[2016-11-07] MEDS: PROTONIX PO SCH (09:28)
[2016-11-07] MEDS: COREG PO SCH ×2 (09:28→22:28)
--- NOTE | 2016-11-07 12:15 | Progress Note ---
Assessment and Plan - Patient Problems (1) End-stage renal disease (ESRD) Current Visit: Yes Status: Chronic Plan to address problem: Continue HD on M// schedule (2) Hypertensive chronic kidney disease with stage 5 chronic kidney disease or end stage renal disease Current Visit: Yes Status: Chronic Plan to address problem: BP currently well controlled. monitor on current meds (3) Anemia in chronic kidney disease Current Visit: No Status: Chronic Plan to address problem: continue EPO w/ HD, will consider blood transfusion if Hb < 7 (4) Chronic systolic heart failure Current Visit: No Status: Chronic Plan to address problem: pt currently compensated, will adjust UF as indicated (5) Diabetes mellitus type II, controlled Current Visit: No Status: Chronic Qualifiers: Diabetes mellitus complication status: with kidney complications Diabetes mellitus complication detail: D Diabetic retinopathy severity: D Diabetes mellitus macular edema: D Diabetes mellitus [facility] insulin use: D Chronic kidney disease stage: on chronic dialysis Plan to address problem: glucose control as per primary attending (6) Acute cholecystitis Current Visit: Yes Status: Resolved Plan to address problem: s/p exlap/open cholecystectomy/colostomy. continue ABXs, dose adjusted to HD. persistent leukocytosis noted with BCx from 10/30 pos for MRSA. repeat blood culture pending, if it again shows MRSA, will add vancomycin. consider ID consult. Subjective Date of service: 11/07/16 Principal diagnosis: esrd Interval history: patient awake, alert, in NAD Objective - Vital Signs Vital signs: Vital Signs - 12hr 11/07/16 11/07/16 11/07/16 00:25 04:10 07:30 Temperature 99.0 F 98.4 F 98.7 F Pulse Rate [ 94 H 89 91 H Right Radial] Respiratory 18 20 18 Rate Blood Pressure 120/1 99/50 124/58 [Right Radial Artery] O2 Sat by Pulse 96 99 94 Oximetry 11/07/16 11/07/16 08:02 09:26 Temperature Pulse Rate [ Right Radial] Respiratory 18 Rate Blood Pressure [Right Radial Artery] O2 Sat by Pulse 94 Oximetry - General Appearance General appearance: well-developed, appears stated age, chronically ill EENT: ATNC, PERRL, mucous membranes moist Neck: no JVD Respiratory: Present: Clear to Ascultation Cardiology: regular, S1S2 Gastrointestinal: normal, normoactive bowel sounds Integumentary: no rash, other (no edema ) Neurologic: no focal deficit, alert and oriented x3, strength 5/5, CN 3-12 intact Psychiatric: mood/affect appropriate, cooperative - Lab 11/05/16 03:18 11/05/16 03:18 Most recent lab results Calcium 8.5 mg/dL (8.4-10.2) 11/05/16 03:18 Phosphorus 3.1 mg/dL (2.5-4.5) 11/02/16 04:36 Magnesium 1.7 mg/dL (1.7-2.3) 11/02/16 04:36
--- NOTE | 2016-11-07 13:10 | Progress Note ---
Assessment and Plan Imp: 1. MRSA bacteremia 2. Acute cholecystitis 3. s/p Cholecystectomy 4. Acute respiratory failure, hypoxia 5. ESRD Rec: 1. Surveillance cultures already growing GPC clusters; dialysis catheter may be source; add Vancomycin and consult ID; consider RENETTA 2. IS 10x/hour, OOB; f/u CXR periodically 3. Contact precautions not done; 3rd order placed 4. Stable pulm-peng but not ready for discharge yet; see #1 Plan of care reviewed w/ patient, she understands/agrees Subjective Date of service: 11/07/16 Principal diagnosis: esrd Interval history: No events. C/o abdominal pain in RUQ, improving. Denies SOB, chest pain, cough. Active Medications Acetaminophen (Tylenol) 650 mg PO Q4H PRN PRN Reason: Pain MILD(1-3)/Fever >100.5/LEBRON Bisacodyl (Dulcolax) 10 mg [place] QDAY PRN PRN Reason: Constipation unrelieved by MOM Carvedilol (Coreg) 3.125 mg PO BID [facility] Last Admin: 11/07/16 09:28 Dose: 3.125 mg Enoxaparin Sodium (Lovenox) 30 mg SUB-Q QDAY [facility] Last Admin: 11/07/16 09:27 Dose: 30 mg Heparin Sodium (Porcine) (Heparin) 5,000 unit IV MERE PRN PRN Reason: hemodialysis Last Admin: 11/06/16 13:13 Dose: 5,000 unit Heparin Sodium (Porcine) (Heparin) 5,000 unit IV MERE PRN PRN Reason: hemodialysis Hydrophilic Ointment (Vaseline Lip Therapy) 1 applic TP Q2HR PRN PRN Reason: Dry Lips Sodium Chloride (Nacl 0.9% 1000 Ml) 100 mls @ 100 mls/hr IV PRN PRN PRN Reason: FOR DIALYSIS Sodium Chloride (Nacl 0.9% 1000 Ml) 100 mls @ 999 mls/hr IV MERE PRN PRN Reason: Hypotension Metronidazole (Flagyl 500 Mg/100 Ml) 500 mg in 100 mls @ 200 mls/hr IV TID [facility] Stop: 11/10/16 08:29 Last Admin: 11/07/16 09:27 Dose: 200 mls/hr Levofloxacin/Dextrose (Levaquin 500mg/100ml) 500 mg in 100 mls @ 100 mls/hr IV Q48HR [facility] PRN Reason: Protocol Stop: 11/10/16 09:59 Insulin Aspart (Novolog) 0 units SUB-Q ACHS [facility] PRN Reason: Protocol Magnesium Hydroxide (Milk Of Magnesia) 30 ml PO Q4H PRN PRN Reason: Constipation Last Admin: 11/05/16 14:56 Dose: 30 ml Morphine Sulfate (Morphine) 2 mg IV Q4H PRN PRN Reason: Pain, Moderate (4-6) Last Admin: 11/06/16 15:07 Dose: 2 mg Morphine Sulfate (Morphine) 2 mg IV Q3H PRN PRN Reason: Pain, Moderate (4-6) Last Admin: 11/07/16 09:26 Dose: 2 mg Multi-Ingred Cream/Lotion/Oil/Oint (Artificial Tears Ophth Oint) 1 applic OU Q4HR PRN PRN Reason: Dry Eye(s) Ondansetron HCl (Zofran) 4 mg IV Q8H PRN PRN Reason: N/V unrelieved by Reglan Last Admin: 11/05/16 09:21 Dose: 4 mg Pantoprazole Sodium (Protonix) 20 mg PO QDAY [facility] Last Admin: 11/07/16 09:28 Dose: 20 mg Vancomycin HCl (Vancomycin Pharmacy To Dose) 1 each IV PKCONSULT [facility] PRN Reason: Protocol Objective Vital Signs - 12hr 11/07/16 11/07/16 11/07/16 04:10 07:30 08:02 Temperature 98.4 F 98.7 F Pulse Rate [ 89 91 H Right Radial] Respiratory 20 18 Rate Blood Pressure 99/50 124/58 [Right Radial Artery] O2 Sat by Pulse 99 94 94 Oximetry 11/07/16 09:26 Temperature Pulse Rate [ Right Radial] Respiratory 18 Rate Blood Pressure [Right Radial Artery] O2 Sat by Pulse Oximetry Constitutional: no acute distress, alert Eyes: non-icteric ENT: oropharynx moist Neck: supple Effort: normal Ascultation: Bilateral: clear Percussion: Bilateral: not dull Cardiovascular: regular rate and rhythm (no mrg) Gastrointestinal: normoactive bowel sounds, soft, non-tender, non-distended, other (incision looks good) Extremities: no cyanosis, no edema, pink and warm Neurologic: normal mental status Psychiatric: mood appropriate, affect normal CBC and BMP: 11/05/16 03:18 11/05/16 03:18 ABG, PT/INR, D-dimer: ABG POC ABG pH 7.488 (7.35-7.45) H 11/01/16 05:56 POC ABG pCO2 31.0 (35-45) L 11/01/16 05:56 POC ABG pO2 106 (80-105) H 11/01/16 05:56 POC ABG HCO3 23.5 11/01/16 05:56 POC ABG Total CO2 24 11/01/16 05:56 POC ABG O2 Sat 99 11/01/16 05:56 Abnormal lab findings: Abnormal Labs 10/30/16 10/30/16 10/30/16 09:31 09:31 23:33 WBC 19.0 H RBC 3.11 L Hgb 7.9 L Hct 26.5 L MCH 25 L MCHC RDW 18.2 H Plt Count 460 H Seg Neuts % (Manual) 87.0 H Lymphocytes % (Manual) 3.0 L Seg Neutrophils # Man 16.5 H Lymphocytes # (Manual) 0.6 L Monocytes # (Manual) 1.0 H Basophils # (Manual) 0.2 H POC ABG pH POC ABG pCO2 POC ABG pO2 Sodium Potassium Chloride 97.4 L Carbon Dioxide BUN 61 H Creatinine 7.5 H Glucose 176 H POC Glucose 178 H Calcium 8.0 L AST Albumin 10/31/16 10/31/16 10/31/16 06:30 06:30 07:45 WBC 20.6 H RBC 3.25 L Hgb 8.2 L Hct 27.7 L MCH 25 L MCHC RDW 18.5 H Plt Count Seg Neuts % (Manual) 90.0 H Lymphocytes % (Manual) 3.0 L Seg Neutrophils # Man 18.5 H Lymphocytes # (Manual) 0.6 L Monocytes # (Manual) Basophils # (Manual) POC ABG pH POC ABG pCO2 POC ABG pO2 Sodium Potassium Chloride Carbon Dioxide BUN 32 H Creatinine 4.7 H Glucose 161 H POC Glucose 164 H Calcium 7.7 L AST Albumin 2.5 L 10/31/16 10/31/16 10/31/16 11:15 19:00 21:55 WBC RBC Hgb Hct MCH MCHC RDW Plt Count Seg Neuts % (Manual) Lymphocytes % (Manual) Seg Neutrophils # Man Lymphocytes # (Manual) Monocytes # (Manual) Basophils # (Manual) POC ABG pH 7.579 H POC ABG pCO2 29.6 L POC ABG pO2 304 H Sodium Potassium Chloride Carbon Dioxide BUN Creatinine Glucose POC Glucose 195 H 160 H Calcium AST Albumin 11/01/16 11/01/16 11/01/16 00:50 02:06 05:56 WBC RBC Hgb Hct MCH MCHC RDW Plt Count Seg Neuts % (Manual) Lymphocytes % (Manual) Seg Neutrophils # Man Lymphocytes # (Manual) Monocytes # (Manual) Basophils # (Manual) POC ABG pH 7.488 H POC ABG pCO2 31.0 L POC ABG pO2 106 H Sodium Potassium Chloride Carbon Dioxide 20 L BUN 45 H Creatinine 6.0 H Glucose 159 H POC Glucose 194 H Calcium 7.9 L AST Albumin 11/01/16 11/01/16 11/01/16 08:01 11:32 16:21 WBC RBC Hgb Hct MCH MCHC RDW Plt Count Seg Neuts % (Manual) Lymphocytes % (Manual) Seg Neutrophils # Man Lymphocytes # (Manual) Monocytes # (Manual) Basophils # (Manual) POC ABG pH POC ABG pCO2 POC ABG pO2 Sodium Potassium Chloride Carbon Dioxide BUN Creatinine Glucose POC Glucose 183 H 172 H 189 H Calcium AST Albumin 11/01/16 11/01/16 11/02/16 18:51 22:37 00:10 WBC 23.7 H RBC 3.24 L Hgb 8.3 L Hct 27.4 L MCH 26 L MCHC RDW 18.6 H Plt Count Seg Neuts % (Manual) 91.0 H Lymphocytes % (Manual) 1.0 L Seg Neutrophils # Man 21.6 H Lymphocytes # (Manual) 0.2 L Monocytes # (Manual) Basophils # (Manual) POC ABG pH POC ABG pCO2 POC ABG pO2 Sodium Potassium Chloride 96.9 L Carbon Dioxide BUN Creatinine 2.5 H D Glucose 141 H POC Glucose 162 H Calcium 8.2 L AST 44 H Albumin 2.4 L 11/02/16 11/02/16 11/02/16 04:36 04:36 07:46 WBC 23.3 H RBC 3.23 L Hgb 8.0 L Hct 27.6 L MCH 25 L MCHC 29 L RDW 18.6 H Plt Count Seg Neuts % (Manual) Lymphocytes % (Manual) 6.0 L Seg Neutrophils # Man 16.1 H Lymphocytes # (Manual) Monocytes # (Manual) 1.4 H Basophils # (Manual) POC ABG pH POC ABG pCO2 POC ABG pO2 Sodium Potassium 3.5 L Chloride 94.2 L Carbon Dioxide BUN 20 H Creatinine 2.8 H Glucose 136 H POC Glucose 154 H Calcium AST Albumin 11/02/16 11/02/16 11/03/16 11:58 15:33 00:23 WBC RBC Hgb Hct MCH MCHC RDW Plt Count Seg Neuts % (Manual) Lymphocytes % (Manual) Seg Neutrophils # Man Lymphocytes # (Manual) Monocytes # (Manual) Basophils # (Manual) POC ABG pH POC ABG pCO2 POC ABG pO2 Sodium Potassium Chloride Carbon Dioxide BUN Creatinine Glucose POC Glucose 163 H 147 H 134 H Calcium AST Albumin 11/03/16 11/04/16 11/04/16 07:19 00:06 07:50 WBC RBC Hgb Hct MCH MCHC RDW Plt Count Seg Neuts % (Manual) Lymphocytes % (Manual) Seg Neutrophils # Man Lymphocytes # (Manual) Monocytes # (Manual) Basophils # (Manual) POC ABG pH POC ABG pCO2 POC ABG pO2 Sodium Potassium Chloride Carbon Dioxide BUN Creatinine Glucose POC Glucose 113 H 161 H 198 H Calcium AST Albumin 11/04/16 11/04/16 11/04/16 11:11 16:07 21:50 WBC RBC Hgb Hct MCH MCHC RDW Plt Count Seg Neuts % (Manual) Lymphocytes % (Manual) Seg Neutrophils # Man Lymphocytes # (Manual) Monocytes # (Manual) Basophils # (Manual) POC ABG pH POC ABG pCO2 POC ABG pO2 Sodium Potassium Chloride Carbon Dioxide BUN Creatinine Glucose POC Glucose 205 H 251 H 136 H Calcium AST Albumin 11/05/16 11/05/16 11/05/16 03:18 03:18 07:14 WBC 22.1 H RBC 2.87 L Hgb 7.3 L Hct 26.2 L MCH 25 L MCHC 28 L RDW 19.3 H Plt Count Seg Neuts % (Manual) Lymphocytes % (Manual) Seg Neutrophils # Man Lymphocytes # (Manual) Monocytes # (Manual) Basophils # (Manual) POC ABG pH POC ABG pCO2 POC ABG pO2 Sodium 135 L Potassium Chloride 94.8 L Carbon Dioxide BUN 28 H Creatinine 4.5 H D Glucose 128 H POC Glucose 114 H Calcium AST Albumin 11/05/16 11/05/16 11/06/16 11:46 16:27 22:01 WBC RBC Hgb Hct MCH MCHC RDW Plt Count Seg Neuts % (Manual) Lymphocytes % (Manual) Seg Neutrophils # Man Lymphocytes # (Manual) Monocytes # (Manual) Basophils # (Manual) POC ABG pH POC ABG pCO2 POC ABG pO2 Sodium Potassium Chloride Carbon Dioxide BUN Creatinine Glucose POC Glucose 219 H 217 H 183 H Calcium AST Albumin Chest x-ray: report reviewed, image reviewed
[2016-11-07] MEDS: NOVOLOG SUB-Q SCH ×3 (13:41→22:30)
[2016-11-07] MEDS ORDERED: VANCOMYCIN PHARMACY TO DOSE IV SCH (14:00)
[2016-11-07] MEDS ORDERED: VANCOMYCIN/NS 1 GM/250 ML 1 GM/250 ML BAG IV ONE (15:00)
--- NOTE | 2016-11-07 16:34 | Consultation ---
History of Present Illness - Reason for Consult Consult date: 11/07/16 bacteremia - History of Present Illness Ms Babin is an 85 y/o AA female who lives independently and has a known history of HTN, DM 2, ESRD/HD, COPD, systolic heart failure (EF 45 -50 percent) , previous bowel perforation with colostomy (~ 6 years ago) who had been hospitalized at 10/21 - 10/24 with hypoglycemia. She had been hospitalized approximately 4 weeks earlier with worsening renal failure requiring initiation of HD (M-W-Fr) via a right chest wall PC ( inserted 10/04/16). She re- presents on 10/30 with abdominal and back pain with history of a recent fall. She is found to have sepsis with acute cholecystitis with nonvisualization of the gallbladder on HIDA scan. 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 Blood cultures from 10/30 showed 4 of 4 bottles with MRSA ( vancomycin KENY 1). Repeat blood cultures now from 11/06 show 1 of 2 bottles with gram-positive cocci in clusters. Further identification is pending. The patient is seen for further ID recommendations. Ms Babin is a poor historian. She cannot describe well her presenting symptoms. She is unaware of any fever or chills. She noted some slight nausea but this has improved. She notes some slight nonproductive cough. Liquid stool contents of her colostomy appears unchanged. She does make urine but denies any dysuria or urgency. She denies pain at her PermCath site. Current vital signs are otherwise stable without temperature elevation. Recent blood studies otherwise include a CBC with white count 22,100, hemoglobin 7.3 and platelet count 415,000. Liver profiles essentially normal. Chest x-ray shows atelectasis without consolidating infiltrates. Blood culture findings are noted above. Current antibiotics include Levaquin, vancomycin, and metronidazole. Past History Past Medical History: dialysis, ESRD, hypertension Past Surgical History: bowel surgery Social history: no significant social history Medications and Allergies Allergies Allergy/AdvReac Type Severity Reaction Status Date / Time No Known Allergies Allergy Verified 03/18/15 10:53 Home Medications Medication Instructions Recorded Confirmed Last Taken Type Mirtazapine 7.5 mg PO QHS 09/28/16 10/30/16 09/28/16 History Albuterol Sulfate [Ventolin HFA] 2 puff IH Q4H PRN #1 pump 01/09/17 01/30/17 Unknown Rx Calcitriol [Rocaltrol] 0.25 mcg PO QDAY #30 capsule 10/09/16 10/30/16 Unknown Rx Famotidine [Pepcid] 20 mg PO BID #60 tablet 10/09/16 10/30/16 Unknown Rx amLODIPine [Norvasc] 10 mg PO DAILY #30 tablet 10/09/16 10/30/16 Unknown Rx Calcium Acetate [Phoslo] 667 mg PO TID 10/21/16 10/30/16 Unknown History Carvedilol [Coreg] 12.5 mg PO BID 10/21/16 10/30/16 Unknown History Active Meds: Active Medications Acetaminophen (Tylenol) 650 mg PO Q4H PRN PRN Reason: Pain MILD(1-3)/Fever >100.5/LEBRON Bisacodyl (Dulcolax) 10 mg [place] QDAY PRN PRN Reason: Constipation unrelieved by MOM Carvedilol (Coreg) 3.125 mg PO BID [facility] Last Admin: 11/07/16 09:28 Dose: 3.125 mg Enoxaparin Sodium (Lovenox) 30 mg SUB-Q QDAY [facility] Last Admin: 11/07/16 09:27 Dose: 30 mg Heparin Sodium (Porcine) (Heparin) 5,000 unit IV MERE PRN PRN Reason: hemodialysis Last Admin: 11/06/16 13:13 Dose: 5,000 unit Heparin Sodium (Porcine) (Heparin) 5,000 unit IV MERE PRN PRN Reason: hemodialysis Hydrophilic Ointment (Vaseline Lip Therapy) 1 applic TP Q2HR PRN PRN Reason: Dry Lips Sodium Chloride (Nacl 0.9% 1000 Ml) 100 mls @ 100 mls/hr IV PRN PRN PRN Reason: FOR DIALYSIS Sodium Chloride (Nacl 0.9% 1000 Ml) 100 mls @ 999 mls/hr IV MERE PRN PRN Reason: Hypotension Metronidazole (Flagyl 500 Mg/100 Ml) 500 mg in 100 mls @ 200 mls/hr IV TID [facility] Stop: 11/10/16 08:29 Last Admin: 11/07/16 09:27 Dose: 200 mls/hr Levofloxacin/Dextrose (Levaquin 500mg/100ml) 500 mg in 100 mls @ 100 mls/hr IV Q48HR [facility] PRN Reason: Protocol Stop: 11/10/16 09:59 Vancomycin HCl (Vancomycin/Ns 1 Gm/250 Ml) 1 gm in 250 mls @ 125 mls/hr IV ONCE ONE Stop: 11/07/16 16:59 Insulin Aspart (Novolog) 0 units SUB-Q ACHS [facility] PRN Reason: Protocol Last Admin: 11/07/16 13:41 Dose: 4 units Magnesium Hydroxide (Milk Of Magnesia) 30 ml PO Q4H PRN PRN Reason: Constipation Last Admin: 11/05/16 14:56 Dose: 30 ml Morphine Sulfate (Morphine) 2 mg IV Q4H PRN PRN Reason: Pain, Moderate (4-6) Last Admin: 11/06/16 15:07 Dose: 2 mg Morphine Sulfate (Morphine) 2 mg IV Q3H PRN PRN Reason: Pain, Moderate (4-6) Last Admin: 11/07/16 15:52 Dose: 2 mg Multi-Ingred Cream/Lotion/Oil/Oint (Artificial Tears Ophth Oint) 1 applic OU Q4HR PRN PRN Reason: Dry Eye(s) Ondansetron HCl (Zofran) 4 mg IV Q8H PRN PRN Reason: N/V unrelieved by Reglan Last Admin: 11/05/16 09:21 Dose: 4 mg Pantoprazole Sodium (Protonix) 20 mg PO QDAY [facility] Last Admin: 11/07/16 09:28 Dose: 20 mg Vancomycin HCl (Vancomycin Pharmacy To Dose) 1 each IV PKCONSULT [facility] PRN Reason: Protocol Review of Systems Gastrointestinal: abdominal pain Physical Examination - Physical Exam Narrative exam: Well-developed well-nourished appearing. HEENT: Pupils are equal reactive to light and accommodation. Conjunctiva clear without icterus. Oropharynx is normal with no evidence of oral candidiasis or pharyngitis. NECK: Supple. No enlargement of the thyroid gland. No significant cervical lymphadenopathy. No jugular venous distention at 30. LUNGS: Clear with no adventitious sounds. Right chest wall PermCath without tenderness, swelling or redness. HEART: Irregularly irregular. Grade 3/6 systolic murmur along the left sternal border. No diastolic murmur. No gallop or rub. ABDOMEN: Soft and nontender. Liver and spleen are not palpably enlarged or tender. No palpable masses. Bowel sounds are normoactive. Colostomy with minimal soft stool contents. Right upper quadrant incision site with few remaining jose. No redness, induration or tenderness. EXTREMITIES: No rash, peripheral lymphadenopathy, clubbing or edema. SKIN: No other rash, ulcers or wounds. NEUROLOGIC: No focal findings. - Constitutional Vitals: Vital Signs Temp Pulse Resp BP Pulse Ox 97.9 F 87 18 128/61 100 11/07/16 11:30 11/07/16 11:30 11/07/16 11:30 11/07/16 11:30 11/07/16 11:30 Temperature -Last 24 Hours Temperature 97.9 F Temperature 98.7 F Temperature 98.4 F Temperature 99.0 F Temperature 97.4 F Temperature 98.0 F Results - Labs CBC & Chem 7: 11/05/16 03:18 11/05/16 03:18 Labs: Abnormal lab results 11/06/16 Range/Units 22:01 POC Glucose 183 H (70-105) Assessment and Plan Assessment: Ms Babin is an 85 y/o AA female who lives independently and has a known history of HTN, DM 2, ESRD/HD, COPD, systolic heart failure (EF 45 -50 percent) , previous bowel perforation with colostomy (~ 6 years ago) who had been hospitalized at 10/21 - 10/24 with hypoglycemia. She had been hospitalized approximately 4 weeks earlier with worsening renal failure requiring initiation of HD (M-W-Fr) via a right chest wall PC ( inserted 10/04/16). She re- presents on 10/30 with abdominal and back pain and is found to have with nonvisualization of the gallbladder on HIDA scan. 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 Blood cultures from 10/30 showed 4 of 4 bottles with MRSA ( vancomycin KENY 1). Repeat blood cultures now from 11/06 show 1 of 2 bottles with gram-positive cocci in clusters. Further identification is pending. The patient is seen for further ID recommendations. Antibiotics: Vancomycin IV 10/30, 11/07 - > Metronidazole 500 mg IV every 8hr ( 10/31 -> Levaquin 500 mg IV (10/30 - > s/p Zosyn 4.5 g IV every 8 hour ( 10/30 - 10/31) Ceftriaxone 1 g IV (10/30 - 10/31) Conclusions: 1. MRSA bacteremia (4/4 bottles) - 10/30 - ? Source - R/O persistent - 11/06/16 (1/2) bottles with gram-positive cocci - R/O contaminant - R/O PC line related ( inserted 10/04/16), - R/O endocarditis with loud systolic heart murmur - R/O biliary source( would not expect MRSA as a pathogen) - R/O other occult source 2. Biliary sepsis with acute cholecystitis - s/p open cholecystectomy - 10/31 3. Leukocytosis - 2nd to above 4. ESRD/HD - Indwelling PermCath ( 10/04/16) 5. Colostomy status post bowel perforation 6. DM 2, systolic heart failure, COPD, anemia Recommendations: - Suggest continuation of vancomycin alone. Other antibiotics are stopped. - Await identification of positive blood isolate from 11/06. This indeed may be a contaminant and not represent persistent MRSA bacteremia. - We will repeat blood cultures on hemodialysis. - In view of loud cardiac murmur would suggest TTE/RENETTA. - Continue as you are with contact precautions. - Supportive Rxs as per Medicine and consultants.
--- NOTE | 2016-11-07 16:48 | Progress Note ---
Assessment and Plan Assessment and plan: MRSA bacteremia - She is on IV vancomycin - Repeat for culture - Echo - ID Consult placed - Contact precaution Cholecystitis s/p cholecystectomy - still complains of abdominal pain End stage renal disease on hemodialysis - Nephrology consult appreciated Hypertension - Controlled DM2 - Continue current management DVT prophylaxis - on lovenox Disposition - Continue inpatient care History Interval history: She was seen and evaluated this morning. She is complaining of abdominal pain and weakness. Hospitalist Physical - Physical exam Narrative exam: Not in cardiopulmonary distress. The patient appeared well nourished and normally developed. Vital signs as documented. Head exam is unremarkable. No scleral icterus . Neck is without jugular venous distension, thyromegaly, or carotid bruits. Lungs are clear to auscultation. Cardiac exam reveals regular rate and Rhythm. First and second heart sounds normal. No murmurs, rubs or gallops. Abdominal exam reveals no abdominal tenderness. [employer]: Alert and oriented 3. No focal weakness. - Constitutional Vitals: Temp Pulse Resp BP Pulse Ox 97.9 F 87 18 128/61 100 11/07/16 11:30 11/07/16 11:30 11/07/16 11:30 11/07/16 11:30 11/07/16 11:30 General appearance: Present: no acute distress, cachectic Results - Labs CBC & Chem 7: 11/05/16 03:18 11/05/16 03:18 Labs: Laboratory Last Values WBC 22.1 K/mm3 (4.5-11.0) H 11/05/16 03:18 RBC 2.87 M/mm3 (3.65-5.03) L 11/05/16 03:18 Hgb 7.3 gm/dl (10.1-14.3) L 11/05/16 03:18 Hct 26.2 % (30.3-42.9) L 11/05/16 03:18 MCV 91 fl (79-97) D 11/05/16 03:18 MCH 25 pg (28-32) L 11/05/16 03:18 MCHC 28 % (30-34) L 11/05/16 03:18 RDW 19.3 % (13.2-15.2) H 11/05/16 03:18 Plt Count 387 K/mm3 (140-440) 11/05/16 03:18 Add Manual Diff Complete 11/02/16 04:36 Total Counted 100 11/02/16 04:36 Seg Neuts % (Manual) 69.0 % (40.0-70.0) 11/02/16 04:36 Band Neutrophils % 13.0 % 11/02/16 04:36 Lymphocytes % (Manual) 6.0 % (13.4-35.0) L 11/02/16 04:36 Reactive Lymphs % (Man) 0 % 11/02/16 04:36 Monocytes % (Manual) 6.0 % (0.0-7.3) 11/02/16 04:36 Eosinophils % (Manual) 0 % (0.0-4.3) 11/02/16 04:36 Basophils % (Manual) 0 % (0.0-1.8) 11/02/16 04:36 Metamyelocytes % 6.0 % 11/02/16 04:36 Myelocytes % 0 % 11/02/16 04:36 Promyelocytes % 0 % 11/02/16 04:36 Blast Cells % 0 % 11/02/16 04:36 Nucleated RBC % Not Reportable 11/02/16 04:36 Seg Neutrophils # Man 16.1 K/mm3 (1.8-7.7) H 11/02/16 04:36 Band Neutrophils # 3.0 K/mm3 11/02/16 04:36 Lymphocytes # (Manual) 1.4 K/mm3 (1.2-5.4) 11/02/16 04:36 Abs React Lymphs (Man) 0.0 K/mm3 11/02/16 04:36 Monocytes # (Manual) 1.4 K/mm3 (0.0-0.8) H 11/02/16 04:36 Eosinophils # (Manual) 0.0 K/mm3 (0.0-0.4) 11/02/16 04:36 Basophils # (Manual) 0.0 K/mm3 (0.0-0.1) 11/02/16 04:36 Metamyelocytes # 1.4 K/mm3 11/02/16 04:36 Myelocytes # 0.0 K/mm3 11/02/16 04:36 Promyelocytes # 0.0 K/mm3 11/02/16 04:36 Blast Cells # 0.0 K/mm3 11/02/16 04:36 WBC Morphology Not Reportable 11/02/16 04:36 Hypersegmented Neuts Not Reportable 11/02/16 04:36 Hyposegmented Neuts Not Reportable 11/02/16 04:36 Hypogranular Neuts Not Reportable 11/02/16 04:36 Smudge Cells Not Reportable 11/02/16 04:36 Toxic Granulation Not Reportable 11/02/16 04:36 Toxic Vacuolation Not Reportable 11/02/16 04:36 Dohle Bodies Not Reportable 11/02/16 04:36 Pelger-Huet Anomaly Not Reportable 11/02/16 04:36 Aida Rods Not Reportable 11/02/16 04:36 Platelet Estimate Consistent w auto 11/02/16 04:36 Clumped Platelets Not Reportable 11/02/16 04:36 Plt Clumps, EDTA Not Reportable 11/02/16 04:36 Large Platelets Not Reportable 11/02/16 04:36 Giant Platelets Not Reportable 11/02/16 04:36 Platelet Satelliting Not Reportable 11/02/16 04:36 Plt Morphology Comment Not Reportable 11/02/16 04:36 RBC Morphology Not Reportable 11/02/16 04:36 Dimorphic RBCs Not Reportable 11/02/16 04:36 Polychromasia 1+ 11/02/16 04:36 Hypochromasia 1+ 11/02/16 04:36 Poikilocytosis Not Reportable 11/02/16 04:36 Anisocytosis 1+ 11/02/16 04:36 Microcytosis Not Reportable 11/02/16 04:36 Macrocytosis Not Reportable 11/02/16 04:36 Spherocytes Not Reportable 11/02/16 04:36 Pappenheimer Bodies Not Reportable 11/02/16 04:36 Sickle Cells Not Reportable 11/02/16 04:36 Target Cells Not Reportable 11/02/16 04:36 Tear Drop Cells Not Reportable 11/02/16 04:36 Ovalocytes Not Reportable 11/02/16 04:36 Helmet Cells Not Reportable 11/02/16 04:36 Munoz-Axtell Bodies Not Reportable 11/02/16 04:36 [place]oy Rings Not Reportable 11/02/16 04:36 Jewett Cells Not Reportable 11/02/16 04:36 Bite Cells Not Reportable 11/02/16 04:36 Crenated Cell Not Reportable 11/02/16 04:36 Elliptocytes Not Reportable 11/02/16 04:36 Acanthocytes (Spur) Not Reportable 11/02/16 04:36 Rouleaux Not Reportable 11/02/16 04:36 Hemoglobin C Crystals Not Reportable 11/02/16 04:36 Schistocytes Not Reportable 11/02/16 04:36 Malaria parasites Not Reportable 11/02/16 04:36 Jalil Bodies Not Reportable 11/02/16 04:36 Hem Pathologist Commnt No 11/02/16 04:36 POC ABG pH 7.488 (7.35-7.45) H 11/01/16 05:56 POC ABG pCO2 31.0 (35-45) L 11/01/16 05:56 POC ABG pO2 106 (80-105) H 11/01/16 05:56 POC ABG HCO3 23.5 11/01/16 05:56 POC ABG Total CO2 24 11/01/16 05:56 POC ABG O2 Sat 99 11/01/16 05:56 POC ABG Base Excess 0 11/01/16 05:56 FiO2 40 % 11/01/16 05:56 Sodium 135 mmol/L (137-145) L 11/05/16 03:18 Potassium 3.8 mmol/L (3.6-5.0) 11/05/16 03:18 Chloride 94.8 mmol/L (98-107) L 11/05/16 03:18 Carbon Dioxide 23 mmol/L (22-30) 11/05/16 03:18 Anion Gap 21 mmol/L 11/05/16 03:18 BUN 28 mg/dL (7-17) H 11/05/16 03:18 Creatinine 4.5 mg/dL (0.7-1.2) H D 11/05/16 03:18 Estimated GFR 11 ml/min 11/05/16 03:18 BUN/Creatinine Ratio 6.22 % 11/05/16 03:18 Glucose 128 mg/dL (65-100) H 11/05/16 03:18 POC Glucose 183 (70-105) H 11/06/16 22:01 Calcium 8.5 mg/dL (8.4-10.2) 11/05/16 03:18 Phosphorus 3.1 mg/dL (2.5-4.5) 11/02/16 04:36 Magnesium 1.7 mg/dL (1.7-2.3) 11/02/16 04:36 Total Bilirubin 0.6 mg/dL (0.1-1.2) 11/01/16 22:37 AST 44 units/L (5-40) H 11/01/16 22:37 ALT 18 units/L (7-56) 11/01/16 22:37 Alkaline Phosphatase 109 units/L (35-129) 11/01/16 22:37 Total Protein 7.2 g/dL (6.3-8.2) 11/01/16 22:37 Albumin 2.4 g/dL (3.9-5) L 11/01/16 22:37 Albumin/Globulin Ratio 0.5 % 11/01/16 22:37 Urine Color Yellow (Yellow) 10/30/16 00:30 Urine Turbidity Slightly-cloudy (Clear) 10/30/16 00:30 Urine pH 5.0 (5.0-7.0) 10/30/16 00:30 Ur Specific [place] 1.015 (1.003-1.030) 10/30/16 00:30 Urine Protein 100 mg/dl mg/dL (Negative) 10/30/16 00:30 Urine Glucose (UA) Neg mg/dL (Negative) 10/30/16 00:30 Urine Ketones Tr mg/dL (Negative) 10/30/16 00:30 Urine Blood Neg (Negative) 10/30/16 00:30 Urine Nitrite Neg (Negative) 10/30/16 00:30 Urine Bilirubin Neg (Negative) 10/30/16 00:30 Urine Urobilinogen < 2.0 mg/dL (<2.0) 10/30/16 00:30 Ur Leukocyte Esterase Neg (Negative) 10/30/16 00:30 Urine WBC (Auto) 10.0 /HPF (0.0-6.0) H 10/30/16 00:30 Urine RBC (Auto) 2.0 /HPF (0.0-6.0) 10/30/16 00:30 U Epithel Cells (Auto) 6.0 /HPF (0-13.0) 10/30/16 00:30 Amorphous Crystals 1+ 10/30/16 00:30 Hyaline Casts 16 /LPF 10/30/16 00:30 Granular Casts 4 /LPF 10/30/16 00:30 Urine Mucus Few /HPF 10/30/16 00:30 Blood Type B POSITIVE 10/31/16 17:38 Antibody Screen Negative 10/31/16 17:38
[2016-11-08 06:29] LABS: Hemoglobin 7.1 gm/dl (10.1-14.3); Mean Corpuscular HGB Conc 31 % (30-34); Mean Corpuscular Hemoglobin 26 pg (28-32); Mean Corpuscular Volume 85 fl (79-97); Platelet Count 427 K/mm3 (140-440); Red Cell Distribution Width 18.9 % (13.2-15.2); White Blood Count 15.8 K/mm3 (4.5-11.0)
[2016-11-08 06:33] LABS: BUN/Creatinine Ratio 4.78; Calcium 8.5 mg/dL (8.4-10.2); Potassium 4.1 mmol/L (3.6-5.0)
[2016-11-08 07:42] LABS: Basophils % (Manual) 0 % (0.0-1.8); Blastocytes % (Manual) 0 %
[2016-11-08 07:43] LABS: Anisocytosis 1+; Diff Status Complete; Hypochromasia 1+; Platelet Estimate Cons
[2016-11-08] MEDS: NOVOLOG SUB-Q SCH ×4 (08:00→22:41)
--- NOTE | 2016-11-08 09:26 | Progress Note ---
Subjective Narrative: Seen Pt yesterday , wbc 15 tolerating PO well alternate jose out , talked to daughter ,will leave D/C for ID , Objective Vital Signs - 12hr 11/07/16 11/08/16 11/08/16 22:28 00:48 05:43 Temperature 98.4 F 98.4 F Pulse Rate 88 Pulse Rate [ 79 87 Right Radial] Respiratory 19 18 Rate Blood Pressure 121/86 Blood Pressure 134/61 129/60 [Right Radial Artery] O2 Sat by Pulse 97 93 Oximetry 11/08/16 08:56 Temperature Pulse Rate Pulse Rate [ Right Radial] Respiratory Rate Blood Pressure Blood Pressure [Right Radial Artery] O2 Sat by Pulse 93 Oximetry - Labs 11/08/16 04:46 11/08/16 04:46 Diabetes panel 11/08/16 Range/Units 04:46 Sodium 132 L (137-145) mmol/L Potassium 4.1 (3.6-5.0) mmol/L Chloride 93.0 L (98-107) mmol/L Carbon Dioxide 25 (22-30) mmol/L BUN 22 H (7-17) mg/dL Creatinine 4.6 H (0.7-1.2) mg/dL Glucose 71 (65-100) mg/dL Calcium 8.5 (8.4-10.2) mg/dL Calcium panel 11/08/16 Range/Units 04:46 Calcium 8.5 (8.4-10.2) mg/dL Pituitary panel 11/08/16 Range/Units 04:46 Sodium 132 L (137-145) mmol/L Potassium 4.1 (3.6-5.0) mmol/L Chloride 93.0 L (98-107) mmol/L Carbon Dioxide 25 (22-30) mmol/L BUN 22 H (7-17) mg/dL Creatinine 4.6 H (0.7-1.2) mg/dL Glucose 71 (65-100) mg/dL Calcium 8.5 (8.4-10.2) mg/dL Adrenal panel 11/08/16 Range/Units 04:46 Sodium 132 L (137-145) mmol/L Potassium 4.1 (3.6-5.0) mmol/L Chloride 93.0 L (98-107) mmol/L Carbon Dioxide 25 (22-30) mmol/L BUN 22 H (7-17) mg/dL Creatinine 4.6 H (0.7-1.2) mg/dL Glucose 71 (65-100) mg/dL Calcium 8.5 (8.4-10.2) mg/dL
[2016-11-08] MEDS: COREG PO SCH ×2 (10:00→21:27)
[2016-11-08] MEDS ORDERED: LEVAQUIN 500MG/100ML 500 MG/100 ML BAG IV SCH (10:00)
--- NOTE | 2016-11-08 11:03 | Progress Note ---
Assessment and Plan - Patient Problems (1) End-stage renal disease (ESRD) Current Visit: Yes Status: Chronic Plan to address problem: Continue HD on M//F schedule (2) Hypertensive chronic kidney disease with stage 5 chronic kidney disease or end stage renal disease Current Visit: Yes Status: Chronic Plan to address problem: BP currently well controlled. 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 repeat Bcx from 11/06 again showing MRSA , appreciate ID consult, continue ABXs w/ vancomycin. consider TTE/RENETTA Subjective Date of service: 11/08/16 Principal diagnosis: esrd Interval history: patient awake, alert, in NAD. now on contact isolation for MRSA bacteremia Objective - Vital Signs Vital signs: Vital Signs - 12hr 11/08/16 11/08/16 11/08/16 00:48 05:43 08:56 Temperature 98.4 F 98.4 F Pulse Rate Pulse Rate [ 79 87 Right Radial] Respiratory 19 18 Rate Blood Pressure Blood Pressure 134/61 129/60 [Right Radial Artery] O2 Sat by Pulse 97 93 93 Oximetry 11/08/16 11/08/16 11/08/16 10:00 10:10 10:15 Temperature 98.5 F Pulse Rate 90 90 92 H Pulse Rate [ Right Radial] Respiratory 16 Rate Blood Pressure 130/64 130/64 152/80 Blood Pressure [Right Radial Artery] O2 Sat by Pulse Oximetry 11/08/16 11/08/16 10:30 10:45 Temperature Pulse Rate 86 87 Pulse Rate [ Right Radial] Respiratory Rate Blood Pressure 132/58 124/67 Blood Pressure [Right Radial Artery] O2 Sat by Pulse Oximetry - General Appearance General appearance: well-developed, well-nourished, appears stated age EENT: ATNC, PERRL, mucous membranes moist Neck: no JVD Respiratory: Present: Clear to Ascultation Cardiology: regular, S1S2 Gastrointestinal: normal, normoactive bowel sounds Integumentary: no rash, other (no edema ) Neurologic: no focal deficit, alert and oriented x3, strength 5/5, CN 3-12 intact Psychiatric: mood/affect appropriate, cooperative - Lab 11/08/16 04:46 11/08/16 04:46 Most recent lab results Calcium 8.5 mg/dL (8.4-10.2) 11/08/16 04:46 Phosphorus 3.1 mg/dL (2.5-4.5) 11/02/16 04:36 Magnesium 1.7 mg/dL (1.7-2.3) 11/02/16 04:36
--- NOTE | 2016-11-08 11:27 | Progress Note ---
Assessment and Plan Antibiotics: Vancomycin IV 10/30, 11/07 - > s/p Zosyn 4.5 g IV every 8 hour ( 10/30 - 10/31) Ceftriaxone 1 g IV (10/30 - 10/31) Metronidazole 500 mg IV every 8hr ( 10/31 ->11/07 Levaquin 500 mg IV (10/30 - > 11/07 Ms Babin is an 85 y/o AA female who lives independently and has a known history of HTN, DM 2, ESRD/HD, COPD, systolic heart failure (EF 45 -50 percent) , previous bowel perforation with colostomy (~ 6 years ago) who had been hospitalized at 10/21 - 10/24 with hypoglycemia. She had been hospitalized approximately 4 weeks earlier with worsening renal failure requiring initiation of HD (M-W-Fr) via a right chest wall PC ( inserted 10/04/16). She re- presents on 10/30 with abdominal and back pain and is found to have with non- visualization of the gallbladder on HIDA scan. 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 Blood cultures from 10/30 showed 4 of 4 bottles with MRSA ( vancomycin KENY 1). Repeat blood cultures now from 11/06 show 1 of 2 bottles with gram-positive cocci in clusters. Further identification is pending. The patient is seen for further ID recommendations. Conclusions: 1. MRSA bacteremia (4/4 bottles) - 10/30 - ? Source, -concerned about the right chest wall permacath being the source, it was placed on 10/04/16. --Initial blood culture positive on 10/30/16, repeat blood culture on 11/06/16 positive with MRSA 2/4 bottles --patient bacteremic x 8 days, concerned about endovascular infection 2. Biliary sepsis with acute cholecystitis - s/p open cholecystectomy - 10/31 3. Leukocytosis - 2nd to above 4. ESRD/HD - Indwelling PermCath ( 10/04/16) Recommendations: -continuation of vancomycin alone. Other antibiotics are -obtain repeat blood cultures today, spoke with the dialysis nurse regarding obtaining blood cultures - await echocardiogram - continue contact precaution. -I believe the permacath will need to be removed, no other source Subjective Date of service: 11/08/16 Principal diagnosis: esrd Interval history: Patient seen in hemodialysi, she is without new complaints. No abdominal pain Objective - Constitutional Vitals: Selected Entries 11/08/16 11/08/16 11/08/16 00:48 05:43 10:00 Temperature 98.4 F 98.4 F 98.5 F Pulse Rate Blood Pressure Blood Pressure 86 Mean 11/08/16 10:45 Temperature Pulse Rate 87 Blood Pressure 124/67 Blood Pressure Mean General appearance: Present: no acute distress, well-nourished - EENT Eyes: PERRL, EOM intact, no scleral icterus, no conjunctival injection ENT: clear oral mucosa, poor dentition (lower), edentulous (upper) - Neck Neck: supple, normal ROM, no enlarged thyroid, no masses or JVD - Respiratory Respiratory: bilateral: CTA - Breasts Breasts: deferred - Cardiovascular Rhythm: regular Heart Sounds: Present: S1 & S2 Extremities: no ischemia, No edema - Gastrointestinal General gastrointestinal: Present: soft, other (colostomy in place) Rectal Exam: deferred - Genitourinary Female genitourinary: deferred - Integumentary Integumentary: clear, warm, dry - Additional findings Additional findings: right chest wall permacath - Labs CBC & Chem 7: 11/08/16 04:46 11/08/16 04:46 Labs: Microbiology 10/30/16 01:13 Peripheral/Venous Blood Culture - Final Methicillin Resist S. Aureus 10/30/16 01:13 Peripheral/Venous Blood Culture - Final Methicillin Resist S. Aureus 11/06/16 Unknown Peripheral/Venous Blood Culture - Preliminary Selected Entries 11/08/16 10:45 Venous Pressure 150 Laboratory Tests 11/05/16 11/08/16 03:18 04:46 WBC 22.1 H 15.8 H
[2016-11-08] MEDS ORDERED: VANCOMYCIN/NS 1 GM/250 ML 1 GM/250 ML BAG IV ONE ×2 (13:00→17:00)
--- NOTE | 2016-11-08 13:08 | Progress Note ---
Assessment and Plan Imp: 1. MRSA bacteremia, persistent 2. Acute cholecystitis 3. s/p Cholecystectomy 4. Acute respiratory failure, hypoxia 5. ESRD Rec: 1. Vancomycin; appreciate ID evaluation; consider RENETTA 2. IS 10x/hour, OOB; f/u CXR periodically 3. Stable pulm-peng; monitor Plan of care reviewed w/ patient, she understands/agrees Subjective Date of service: 11/08/16 Principal diagnosis: esrd Interval history: No events. Poor historian. Denies SOB, chest pain, cough. Active Medications Acetaminophen (Tylenol) 650 mg PO Q4H PRN PRN Reason: Pain MILD(1-3)/Fever >100.5/LEBRON Bisacodyl (Dulcolax) 10 mg HI QDAY PRN PRN Reason: Constipation unrelieved by MOM Carvedilol (Coreg) 3.125 mg PO BID [facility] Last Admin: 11/07/16 22:28 Dose: 3.125 mg Enoxaparin Sodium (Lovenox) 30 mg SUB-Q QDAY [facility] Last Admin: 11/07/16 09:27 Dose: 30 mg Heparin Sodium (Porcine) (Heparin) 5,000 unit IV MERE PRN PRN Reason: hemodialysis Last Admin: 11/06/16 13:13 Dose: 5,000 unit Heparin Sodium (Porcine) (Heparin) 5,000 unit IV MERE PRN PRN Reason: hemodialysis Hydrophilic Ointment (Vaseline Lip Therapy) 1 applic TP Q2HR PRN PRN Reason: Dry Lips Sodium Chloride (Nacl 0.9% 1000 Ml) 100 mls @ 100 mls/hr IV PRN PRN PRN Reason: FOR DIALYSIS Sodium Chloride (Nacl 0.9% 1000 Ml) 100 mls @ 999 mls/hr IV MERE PRN PRN Reason: Hypotension Vancomycin HCl (Vancomycin/Ns 1 Gm/250 Ml) 1 gm in 250 mls @ 167.007 mls/hr IV ONCE ONE Stop: 11/08/16 14:29 Insulin Aspart (Novolog) 0 units SUB-Q ACHS [facility] PRN Reason: Protocol Last Admin: 11/07/16 22:30 Dose: 6 units Magnesium Hydroxide (Milk Of Magnesia) 30 ml PO Q4H PRN PRN Reason: Constipation Last Admin: 11/05/16 14:56 Dose: 30 ml Morphine Sulfate (Morphine) 2 mg IV Q4H PRN PRN Reason: Pain, Moderate (4-6) Last Admin: 11/06/16 15:07 Dose: 2 mg Morphine Sulfate (Morphine) 2 mg IV Q3H PRN PRN Reason: Pain, Moderate (4-6) Last Admin: 11/07/16 15:52 Dose: 2 mg Multi-Ingred Cream/Lotion/Oil/Oint (Artificial Tears Ophth Oint) 1 applic OU Q4HR PRN PRN Reason: Dry Eye(s) Ondansetron HCl (Zofran) 4 mg IV Q8H PRN PRN Reason: N/V unrelieved by Reglan Last Admin: 11/05/16 09:21 Dose: 4 mg Pantoprazole Sodium (Protonix) 20 mg PO QDAY [facility] Last Admin: 11/07/16 09:28 Dose: 20 mg Vancomycin HCl (Vancomycin Pharmacy To Dose) 1 each IV PKCONSULT [facility] PRN Reason: Protocol Objective Vital Signs - 12hr 11/08/16 11/08/16 11/08/16 05:43 08:56 10:00 Temperature 98.4 F 98.5 F Pulse Rate 90 Pulse Rate [ 87 Right Radial] Respiratory 18 16 Rate Blood Pressure 130/64 Blood Pressure 129/60 [Right Radial Artery] O2 Sat by Pulse 93 93 Oximetry 11/08/16 11/08/16 11/08/16 10:10 10:15 10:30 Temperature Pulse Rate 90 92 H 86 Pulse Rate [ Right Radial] Respiratory Rate Blood Pressure 130/64 152/80 132/58 Blood Pressure [Right Radial Artery] O2 Sat by Pulse Oximetry 11/08/16 11/08/16 11/08/16 10:45 11:00 11:15 Temperature Pulse Rate 87 86 89 Pulse Rate [ Right Radial] Respiratory Rate Blood Pressure 124/67 123/67 126/61 Blood Pressure [Right Radial Artery] O2 Sat by Pulse Oximetry 11/08/16 11/08/16 11/08/16 11:30 11:45 12:00 Temperature Pulse Rate 72 70 71 Pulse Rate [ Right Radial] Respiratory Rate Blood Pressure 148/63 138/65 130/66 Blood Pressure [Right Radial Artery] O2 Sat by Pulse Oximetry 11/08/16 11/08/16 11/08/16 12:15 12:30 12:45 Temperature Pulse Rate 69 66 71 Pulse Rate [ Right Radial] Respiratory Rate Blood Pressure 108/67 123/49 91/47 Blood Pressure [Right Radial Artery] O2 Sat by Pulse Oximetry 11/08/16 12:50 Temperature Pulse Rate 97 H Pulse Rate [ Right Radial] Respiratory Rate Blood Pressure 118/65 Blood Pressure [Right Radial Artery] O2 Sat by Pulse Oximetry Constitutional: no acute distress, alert Eyes: non-icteric ENT: oropharynx moist Neck: supple Effort: normal Ascultation: Bilateral: clear Percussion: Bilateral: not dull Cardiovascular: regular rate and rhythm (no mrg) Gastrointestinal: normoactive bowel sounds, soft, non-tender, non-distended, other (incision looks good) Extremities: no cyanosis, no edema, pink and warm Neurologic: normal mental status Psychiatric: mood appropriate, affect normal CBC and BMP: 11/08/16 04:46 11/08/16 04:46 ABG, PT/INR, D-dimer: ABG POC ABG pH 7.488 (7.35-7.45) H 11/01/16 05:56 POC ABG pCO2 31.0 (35-45) L 11/01/16 05:56 POC ABG pO2 106 (80-105) H 11/01/16 05:56 POC ABG HCO3 23.5 11/01/16 05:56 POC ABG Total CO2 24 11/01/16 05:56 POC ABG O2 Sat 99 11/01/16 05:56 Abnormal lab findings: Abnormal Labs 10/30/16 10/30/16 10/30/16 09:31 09:31 23:33 WBC 19.0 H RBC 3.11 L Hgb 7.9 L Hct 26.5 L MCH 25 L MCHC RDW 18.2 H Plt Count 460 H Seg Neuts % (Manual) 87.0 H Lymphocytes % (Manual) 3.0 L Monocytes % (Manual) Seg Neutrophils # Man 16.5 H Lymphocytes # (Manual) 0.6 L Monocytes # (Manual) 1.0 H Basophils # (Manual) 0.2 H POC ABG pH POC ABG pCO2 POC ABG pO2 Sodium Potassium Chloride 97.4 L Carbon Dioxide BUN 61 H Creatinine 7.5 H Glucose 176 H POC Glucose 178 H Calcium 8.0 L AST Albumin 10/31/16 10/31/16 10/31/16 06:30 06:30 07:45 WBC 20.6 H RBC 3.25 L Hgb 8.2 L Hct 27.7 L MCH 25 L MCHC RDW 18.5 H Plt Count Seg Neuts % (Manual) 90.0 H Lymphocytes % (Manual) 3.0 L Monocytes % (Manual) Seg Neutrophils # Man 18.5 H Lymphocytes # (Manual) 0.6 L Monocytes # (Manual) Basophils # (Manual) POC ABG pH POC ABG pCO2 POC ABG pO2 Sodium Potassium Chloride Carbon Dioxide BUN 32 H Creatinine 4.7 H Glucose 161 H POC Glucose 164 H Calcium 7.7 L AST Albumin 2.5 L 10/31/16 10/31/16 10/31/16 11:15 19:00 21:55 WBC RBC Hgb Hct MCH MCHC RDW Plt Count Seg Neuts % (Manual) Lymphocytes % (Manual) Monocytes % (Manual) Seg Neutrophils # Man Lymphocytes # (Manual) Monocytes # (Manual) Basophils # (Manual) POC ABG pH 7.579 H POC ABG pCO2 29.6 L POC ABG pO2 304 H Sodium Potassium Chloride Carbon Dioxide BUN Creatinine Glucose POC Glucose 195 H 160 H Calcium AST Albumin 11/01/16 11/01/16 11/01/16 00:50 02:06 05:56 WBC RBC Hgb Hct MCH MCHC RDW Plt Count Seg Neuts % (Manual) Lymphocytes % (Manual) Monocytes % (Manual) Seg Neutrophils # Man Lymphocytes # (Manual) Monocytes # (Manual) Basophils # (Manual) POC ABG pH 7.488 H POC ABG pCO2 31.0 L POC ABG pO2 106 H Sodium Potassium Chloride Carbon Dioxide 20 L BUN 45 H Creatinine 6.0 H Glucose 159 H POC Glucose 194 H Calcium 7.9 L AST Albumin 11/01/16 11/01/16 11/01/16 08:01 11:32 16:21 WBC RBC Hgb Hct MCH MCHC RDW Plt Count Seg Neuts % (Manual) Lymphocytes % (Manual) Monocytes % (Manual) Seg Neutrophils # Man Lymphocytes # (Manual) Monocytes # (Manual) Basophils # (Manual) POC ABG pH POC ABG pCO2 POC ABG pO2 Sodium Potassium Chloride Carbon Dioxide BUN Creatinine Glucose POC Glucose 183 H 172 H 189 H Calcium AST Albumin 11/01/16 11/01/16 11/02/16 18:51 22:37 00:10 WBC 23.7 H RBC 3.24 L Hgb 8.3 L Hct 27.4 L MCH 26 L MCHC RDW 18.6 H Plt Count Seg Neuts % (Manual) 91.0 H Lymphocytes % (Manual) 1.0 L Monocytes % (Manual) Seg Neutrophils # Man 21.6 H Lymphocytes # (Manual) 0.2 L Monocytes # (Manual) Basophils # (Manual) POC ABG pH POC ABG pCO2 POC ABG pO2 Sodium Potassium Chloride 96.9 L Carbon Dioxide BUN Creatinine 2.5 H D Glucose 141 H POC Glucose 162 H Calcium 8.2 L AST 44 H Albumin 2.4 L 11/02/16 11/02/16 11/02/16 04:36 04:36 07:46 WBC 23.3 H RBC 3.23 L Hgb 8.0 L Hct 27.6 L MCH 25 L MCHC 29 L RDW 18.6 H Plt Count Seg Neuts % (Manual) Lymphocytes % (Manual) 6.0 L Monocytes % (Manual) Seg Neutrophils # Man 16.1 H Lymphocytes # (Manual) Monocytes # (Manual) 1.4 H Basophils # (Manual) POC ABG pH POC ABG pCO2 POC ABG pO2 Sodium Potassium 3.5 L Chloride 94.2 L Carbon Dioxide BUN 20 H Creatinine 2.8 H Glucose 136 H POC Glucose 154 H Calcium AST Albumin 11/02/16 11/02/16 11/03/16 11:58 15:33 00:23 WBC RBC Hgb Hct MCH MCHC RDW Plt Count Seg Neuts % (Manual) Lymphocytes % (Manual) Monocytes % (Manual) Seg Neutrophils # Man Lymphocytes # (Manual) Monocytes # (Manual) Basophils # (Manual) POC ABG pH POC ABG pCO2 POC ABG pO2 Sodium Potassium Chloride Carbon Dioxide BUN Creatinine Glucose POC Glucose 163 H 147 H 134 H Calcium AST Albumin 11/03/16 11/04/16 11/04/16 07:19 00:06 07:50 WBC RBC Hgb Hct MCH MCHC RDW Plt Count Seg Neuts % (Manual) Lymphocytes % (Manual) Monocytes % (Manual) Seg Neutrophils # Man Lymphocytes # (Manual) Monocytes # (Manual) Basophils # (Manual) POC ABG pH POC ABG pCO2 POC ABG pO2 Sodium Potassium Chloride Carbon Dioxide BUN Creatinine Glucose POC Glucose 113 H 161 H 198 H Calcium AST Albumin 11/04/16 11/04/16 11/04/16 11:11 16:07 21:50 WBC RBC Hgb Hct MCH MCHC RDW Plt Count Seg Neuts % (Manual) Lymphocytes % (Manual) Monocytes % (Manual) Seg Neutrophils # Man Lymphocytes # (Manual) Monocytes # (Manual) Basophils # (Manual) POC ABG pH POC ABG pCO2 POC ABG pO2 Sodium Potassium Chloride Carbon Dioxide BUN Creatinine Glucose POC Glucose 205 H 251 H 136 H Calcium AST Albumin 11/05/16 11/05/16 11/05/16 03:18 03:18 07:14 WBC 22.1 H RBC 2.87 L Hgb 7.3 L Hct 26.2 L MCH 25 L MCHC 28 L RDW 19.3 H Plt Count Seg Neuts % (Manual) Lymphocytes % (Manual) Monocytes % (Manual) Seg Neutrophils # Man Lymphocytes # (Manual) Monocytes # (Manual) Basophils # (Manual) POC ABG pH POC ABG pCO2 POC ABG pO2 Sodium 135 L Potassium Chloride 94.8 L Carbon Dioxide BUN 28 H Creatinine 4.5 H D Glucose 128 H POC Glucose 114 H Calcium AST Albumin 11/05/16 11/05/16 11/06/16 11:46 16:27 22:01 WBC RBC Hgb Hct MCH MCHC RDW Plt Count Seg Neuts % (Manual) Lymphocytes % (Manual) Monocytes % (Manual) Seg Neutrophils # Man Lymphocytes # (Manual) Monocytes # (Manual) Basophils # (Manual) POC ABG pH POC ABG pCO2 POC ABG pO2 Sodium Potassium Chloride Carbon Dioxide BUN Creatinine Glucose POC Glucose 219 H 217 H 183 H Calcium AST Albumin 11/07/16 11/07/16 11/07/16 07:34 12:20 17:59 WBC RBC Hgb Hct MCH MCHC RDW Plt Count Seg Neuts % (Manual) Lymphocytes % (Manual) Monocytes % (Manual) Seg Neutrophils # Man Lymphocytes # (Manual) Monocytes # (Manual) Basophils # (Manual) POC ABG pH POC ABG pCO2 POC ABG pO2 Sodium Potassium Chloride Carbon Dioxide BUN Creatinine Glucose POC Glucose 137 H 263 H 155 H Calcium AST Albumin 11/07/16 11/08/16 11/08/16 21:25 04:46 04:46 WBC 15.8 H RBC 2.70 L Hgb 7.1 L Hct 23.0 L MCH 26 L MCHC RDW 18.9 H Plt Count Seg Neuts % (Manual) 83.0 H Lymphocytes % (Manual) 6.0 L Monocytes % (Manual) 8.0 H Seg Neutrophils # Man 13.1 H Lymphocytes # (Manual) 0.9 L Monocytes # (Manual) 1.3 H Basophils # (Manual) POC ABG pH POC ABG pCO2 POC ABG pO2 Sodium 132 L Potassium Chloride 93.0 L Carbon Dioxide BUN 22 H Creatinine 4.6 H Glucose POC Glucose 308 H Calcium AST Albumin Chest x-ray: report reviewed, image reviewed
[2016-11-08] MEDS: MORPHINE IV PRN ×2 (13:38→18:44)
[2016-11-08] MEDS: HEPARIN IV PRN (13:52)
[2016-11-08] MEDS ORDERED: XYLOCAINE 1% 20 mL INFILTRATI ONE (14:00)
--- NOTE | 2016-11-08 14:27 | Progress Note ---
Assessment and Plan Assessment and plan: MRSA bacteremia - She is on IV vancomycin - Repeat blood cultures positive for MRSA - Another blood culture was taken from catheter tip - We will going to remove the Vas-Cath - Echocardiography was done and reading is pending - ID Consult appreciated - Contact precaution Cholecystitis s/p cholecystectomy -Abdominal pain is getting better End stage renal disease on hemodialysis - Nephrology consult appreciated Hypertension - Controlled DM2 - Continue current management DVT prophylaxis - on lovenox Disposition - Continue inpatient care History Interval history: She was seen and evaluated this morning. She stated that abdominal pain is getting better. He denied fevers, chills. Hospitalist Physical - Physical exam Narrative exam: Not in cardiopulmonary distress. The patient appeared well nourished and normally developed. Vital signs as documented. Head exam is unremarkable. No scleral icterus . Neck is without jugular venous distension, thyromegaly, or carotid bruits. Lungs are clear to auscultation. Cardiac exam reveals regular rate and Rhythm. First and second heart sounds normal. No murmurs, rubs or gallops. Abdominal has colostomy bag on the right lower abdomen. 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 No focal weakness. - Constitutional Vitals: Temp Pulse Resp BP Pulse Ox 98.1 F 64 22 137/49 93 11/08/16 13:50 11/08/16 13:50 11/08/16 13:50 11/08/16 13:50 11/08/16 08:56 General appearance: Present: no acute distress, well-nourished Results - Labs CBC & Chem 7: 11/08/16 04:46 11/08/16 04:46 Labs: Laboratory Last Values WBC 15.8 K/mm3 (4.5-11.0) H 11/08/16 04:46 RBC 2.70 M/mm3 (3.65-5.03) L 11/08/16 04:46 Hgb 7.1 gm/dl (10.1-14.3) L 11/08/16 04:46 Hct 23.0 % (30.3-42.9) L 11/08/16 04:46 MCV 85 fl (79-97) 11/08/16 04:46 MCH 26 pg (28-32) L 11/08/16 04:46 MCHC 31 % (30-34) 11/08/16 04:46 RDW 18.9 % (13.2-15.2) H 11/08/16 04:46 Plt Count 427 K/mm3 (140-440) 11/08/16 04:46 Lymph % (Auto) Endoscopy Nurse 11/08/16 04:46 [place] % (Auto) Endoscopy Nurse 11/08/16 04:46 Eos % (Auto) Endoscopy Nurse 11/08/16 04:46 Baso % (Auto) Endoscopy Nurse 11/08/16 04:46 Lymph # Endoscopy Nurse 11/08/16 04:46 [place] # Endoscopy Nurse 11/08/16 04:46 Eos # Endoscopy Nurse 11/08/16 04:46 Baso # Endoscopy Nurse 11/08/16 04:46 Add Manual Diff Complete 11/08/16 04:46 Total Counted 100 11/08/16 04:46 Seg Neutrophils % Endoscopy Nurse 11/08/16 04:46 Seg Neuts % (Manual) 83.0 % (40.0-70.0) H 11/08/16 04:46 Band Neutrophils % 1.0 % 11/08/16 04:46 Lymphocytes % (Manual) 6.0 % (13.4-35.0) L 11/08/16 04:46 Reactive Lymphs % (Man) 0 % 11/08/16 04:46 Monocytes % (Manual) 8.0 % (0.0-7.3) H 11/08/16 04:46 Eosinophils % (Manual) 2.0 % (0.0-4.3) 11/08/16 04:46 Basophils % (Manual) 0 % (0.0-1.8) 11/08/16 04:46 Metamyelocytes % 0 % 11/08/16 04:46 Myelocytes % 0 % 11/08/16 04:46 Promyelocytes % 0 % 11/08/16 04:46 Blast Cells % 0 % 11/08/16 04:46 Nucleated RBC % Not Reportable 11/08/16 04:46 Seg Neutrophils # Endoscopy Nurse 11/08/16 04:46 Seg Neutrophils # Man 13.1 K/mm3 (1.8-7.7) H 11/08/16 04:46 Band Neutrophils # 0.2 K/mm3 11/08/16 04:46 Lymphocytes # (Manual) 0.9 K/mm3 (1.2-5.4) L 11/08/16 04:46 Abs React Lymphs (Man) 0.0 K/mm3 11/08/16 04:46 Monocytes # (Manual) 1.3 K/mm3 (0.0-0.8) H 11/08/16 04:46 Eosinophils # (Manual) 0.3 K/mm3 (0.0-0.4) 11/08/16 04:46 Basophils # (Manual) 0.0 K/mm3 (0.0-0.1) 11/08/16 04:46 Metamyelocytes # 0.0 K/mm3 11/08/16 04:46 Myelocytes # 0.0 K/mm3 11/08/16 04:46 Promyelocytes # 0.0 K/mm3 11/08/16 04:46 Blast Cells # 0.0 K/mm3 11/08/16 04:46 WBC Morphology Not Reportable 11/08/16 04:46 Hypersegmented Neuts Not Reportable 11/08/16 04:46 Hyposegmented Neuts Not Reportable 11/08/16 04:46 Hypogranular Neuts Not Reportable 11/08/16 04:46 Smudge Cells Not Reportable 11/08/16 04:46 Toxic Granulation Not Reportable 11/08/16 04:46 Toxic Vacuolation Not Reportable 11/08/16 04:46 Dohle Bodies Not Reportable 11/08/16 04:46 Pelger-Huet Anomaly Not Reportable 11/08/16 04:46 Aida Rods Not Reportable 11/08/16 04:46 Platelet Estimate Cons 11/08/16 04:46 Clumped Platelets Not Reportable 11/08/16 04:46 Plt Clumps, EDTA Not Reportable 11/08/16 04:46 Large Platelets Not Reportable 11/08/16 04:46 Giant Platelets Not Reportable 11/08/16 04:46 Platelet Satelliting Not Reportable 11/08/16 04:46 Plt Morphology Comment Not Reportable 11/08/16 04:46 RBC Morphology Not Reportable 11/08/16 04:46 Dimorphic RBCs Not Reportable 11/08/16 04:46 Polychromasia Not Reportable 11/08/16 04:46 Hypochromasia 1+ 11/08/16 04:46 Poikilocytosis Not Reportable 11/08/16 04:46 Anisocytosis 1+ 11/08/16 04:46 Microcytosis Not Reportable 11/08/16 04:46 Macrocytosis Not Reportable 11/08/16 04:46 Spherocytes Not Reportable 11/08/16 04:46 Pappenheimer Bodies Not Reportable 11/08/16 04:46 Sickle Cells Not Reportable 11/08/16 04:46 Target Cells Not Reportable 11/08/16 04:46 Tear Drop Cells Not Reportable 11/08/16 04:46 Ovalocytes Not Reportable 11/08/16 04:46 Helmet Cells Not Reportable 11/08/16 04:46 [place] Bodies Not Reportable 11/08/16 04:46 [place] Rings Not Reportable 11/08/16 04:46 [place] Cells Not Reportable 11/08/16 04:46 Bite Cells Not Reportable 11/08/16 04:46 Crenated Cell Not Reportable 11/08/16 04:46 Elliptocytes Not Reportable 11/08/16 04:46 Acanthocytes (Spur) Not Reportable 11/08/16 04:46 Rouleaux Not Reportable 11/08/16 04:46 Hemoglobin C Crystals Not Reportable 11/08/16 04:46 Schistocytes Not Reportable 11/08/16 04:46 Malaria parasites Not Reportable 11/08/16 04:46 [place] Bodies Not Reportable 11/08/16 04:46 Hem Pathologist Commnt No 11/08/16 04:46 POC ABG pH 7.488 (7.35-7.45) H 11/01/16 05:56 POC ABG pCO2 31.0 (35-45) L 11/01/16 05:56 POC ABG pO2 106 (80-105) H 11/01/16 05:56 POC ABG HCO3 23.5 11/01/16 05:56 POC ABG Total CO2 24 11/01/16 05:56 POC ABG O2 Sat 99 11/01/16 05:56 POC ABG Base Excess 0 11/01/16 05:56 FiO2 40 % 11/01/16 05:56 Sodium 132 mmol/L (137-145) L 11/08/16 04:46 Potassium 4.1 mmol/L (3.6-5.0) 11/08/16 04:46 Chloride 93.0 mmol/L (98-107) L 11/08/16 04:46 Carbon Dioxide 25 mmol/L (22-30) 11/08/16 04:46 Anion Gap 18 mmol/L 11/08/16 04:46 BUN 22 mg/dL (7-17) H 11/08/16 04:46 Creatinine 4.6 mg/dL (0.7-1.2) H 11/08/16 04:46 Estimated GFR 11 ml/min 11/08/16 04:46 BUN/Creatinine Ratio 4.78 % 11/08/16 04:46 Glucose 71 mg/dL (65-100) 11/08/16 04:46 POC Glucose 308 (70-105) H 11/07/16 21:25 Calcium 8.5 mg/dL (8.4-10.2) 11/08/16 04:46 Phosphorus 3.1 mg/dL (2.5-4.5) 11/02/16 04:36 Magnesium 1.7 mg/dL (1.7-2.3) 11/02/16 04:36 Total Bilirubin 0.6 mg/dL (0.1-1.2) 11/01/16 22:37 AST 44 units/L (5-40) H 11/01/16 22:37 ALT 18 units/L (7-56) 11/01/16 22:37 Alkaline Phosphatase 109 units/L (35-129) 11/01/16 22:37 Total Protein 7.2 g/dL (6.3-8.2) 11/01/16 22:37 Albumin 2.4 g/dL (3.9-5) L 11/01/16 22:37 Albumin/Globulin Ratio 0.5 % 11/01/16 22:37 Urine Color Yellow (Yellow) 10/30/16 00:30 Urine Turbidity Slightly-cloudy (Clear) 10/30/16 00:30 Urine pH 5.0 (5.0-7.0) 10/30/16 00:30 Ur Specific [place] 1.015 (1.003-1.030) 10/30/16 00:30 Urine Protein 100 mg/dl mg/dL (Negative) 10/30/16 00:30 Urine Glucose (UA) Neg mg/dL (Negative) 10/30/16 00:30 Urine Ketones Tr mg/dL (Negative) 10/30/16 00:30 Urine Blood Neg (Negative) 10/30/16 00:30 Urine Nitrite Neg (Negative) 10/30/16 00:30 Urine Bilirubin Neg (Negative) 10/30/16 00:30 Urine Urobilinogen < 2.0 mg/dL (<2.0) 10/30/16 00:30 Ur Leukocyte Esterase Neg (Negative) 10/30/16 00:30 Urine WBC (Auto) 10.0 /HPF (0.0-6.0) H 10/30/16 00:30 Urine RBC (Auto) 2.0 /HPF (0.0-6.0) 10/30/16 00:30 U Epithel Cells (Auto) 6.0 /HPF (0-13.0) 10/30/16 00:30 Amorphous Crystals 1+ 10/30/16 00:30 Hyaline Casts 16 /LPF 10/30/16 00:30 Granular Casts 4 /LPF 10/30/16 00:30 Urine Mucus Few /HPF 10/30/16 00:30 Blood Type B POSITIVE 10/31/16 17:38 Antibody Screen Negative 10/31/16 17:38 Leukocytosis, persistently positive blood culture for MRSA
--- NOTE | 2016-11-08 15:52 | Operative Report ---
Operative Report Operative Report: EXAM: Tunneled catheter removal DATE: 11/08/16 INDICATION: Bacteremia with MRSA and indwelling catheter MEDICATIONS: Please see nursing report for full details. BATCH WEIGHER: ROSA SANDERS MD CONTRAST: None PROCEDURE: The risks, benefits, and alternatives were discussed; written informed consent was obtained. The patient was positioned with the head towards the contralateral side. The tunneled catheter was prepped and draped in a sterile fashion. Lidocaine was infiltrated at the dermatotomy site. Heparin was withdrawn from both lumens. Using a hemostat, blunt dissection was performed and the cuff was extracted. The catheter was extracted and pressure was held at the venotomy and dermatotomy site until hemostasis was achieved. Sterile bandage was then applied. The patient tolerated the procedure without issue. FINDINGS: Successful removal of the tunneled catheter. Tip was cut off and sent for culture. IMPRESSION: Successful removal of the right internal jugular vein tunneled catheter.
[2016-11-08] MEDS: LOVENOX SUB-Q SCH (17:29)
[2016-11-08] MEDS: PROTONIX PO SCH (17:30)
[2016-11-09 06:32] LABS: Basophils % (Auto) 0.4 % (0.0-1.8); Eosinophils % (Auto) 0.4 % (0.0-4.3); Hematocrit 22.6 % (30.3-42.9); Hemoglobin 6.9 gm/dl (10.1-14.3); Mean Corpuscular HGB Conc 30 % (30-34); Mean Corpuscular Hemoglobin 26 pg (28-32); Mean Corpuscular Volume 85 fl (79-97); Platelet Count 368 K/mm3 (140-440); Red Blood Count 2.64 M/mm3 (3.65-5.03); Red Cell Distribution Width 18.9 % (13.2-15.2); White Blood Count 17.8 K/mm3 (4.5-11.0)
[2016-11-09 06:47] LABS: BUN/Creatinine Ratio 3.66; Calcium 8.5 mg/dL (8.4-10.2); Potassium 4.3 mmol/L (3.6-5.0)
[2016-11-09] MEDS: NOVOLOG SUB-Q SCH ×4 (08:30→22:35)
--- NOTE | 2016-11-09 10:15 | Progress Note ---
Assessment and Plan - Patient Problems (1) End-stage renal disease (ESRD) Current Visit: Yes Status: Chronic Plan to address problem: Patient s/p permcath removal yesterday post HD, will monitor electrolytes and renal parameters and allow catheter free interval as long as possible. (2) Hypertensive chronic kidney disease with stage 5 chronic kidney disease or end stage renal disease Current Visit: Yes Status: Chronic Plan to address problem: BP currently well controlled. monitor on current meds (3) Anemia in chronic kidney disease Current Visit: No Status: Chronic Plan to address problem: continue EPO w/ HD, recommend 1 PRBC if Hb remains <7 (4) Chronic systolic heart failure Current Visit: No Status: Chronic Plan to address problem: pt currently compensated, will adjust UF as indicated (5) Diabetes mellitus type II, controlled Current Visit: No Status: Chronic Qualifiers: Diabetes mellitus complication status: with kidney complications Diabetes mellitus complication detail: D Diabetic retinopathy severity: D Diabetes mellitus macular edema: D Diabetes mellitus residential insulin use: D Chronic kidney disease stage: on chronic dialysis Plan to address problem: glucose control as per primary attending (6) Acute cholecystitis Current Visit: Yes Status: Resolved Plan to address problem: s/p exlap/open cholecystectomy/colostomy. (7) MRSA bacteremia Current Visit: Yes Status: Acute Plan to address problem: repeat Bcx from 11/06 again showing MRSA, echo showed vegetation at the tip of permcath. D/w Dr Herbert S/p permcath removal, appreciate IR/ID consult, continue ABXs w/ vancomycin. consider RENETTA if BCx persistently positive. Subjective Date of service: 11/09/16 Principal diagnosis: esrd Interval history: pt awake, alert, denies fever, chills, n/v/d, SOB, CP, palpitations. S/p permcath removal yesterday in view of persistent MRSA bacteremia Objective - Vital Signs Vital signs: Vital Signs - 12hr 11/09/16 11/09/16 11/09/16 00:38 04:15 08:18 Temperature 97.8 F 97.6 F Pulse Rate [ 94 H Left Radial] Pulse Rate [ 94 H 96 H Right Radial] Respiratory 16 20 12 Rate Blood Pressure 105/54 [Left Arm] Blood Pressure 122/69 120/64 [Right Radial Artery] O2 Sat by Pulse 96 95 100 Oximetry - General Appearance General appearance: well-developed, appears stated age, chronically ill EENT: ATNC, PERRL, mucous membranes moist Neck: no JVD Respiratory: Present: Clear to Ascultation Cardiology: regular, S1S2 Gastrointestinal: normal, normoactive bowel sounds, other (colostomy in place ) Integumentary: no rash, other (no edema ) Neurologic: no focal deficit, alert and oriented x3, strength 5/5, CN 3-12 intact Psychiatric: mood/affect appropriate, cooperative - Lab 11/09/16 04:56 11/09/16 04:56 Most recent lab results Calcium 8.5 mg/dL (8.4-10.2) 11/09/16 04:56 Phosphorus 3.1 mg/dL (2.5-4.5) 11/02/16 04:36 Magnesium 1.7 mg/dL (1.7-2.3) 11/02/16 04:36
[2016-11-09] MEDS: COREG PO SCH ×2 (10:39→22:22)
[2016-11-09] MEDS: PROTONIX PO SCH (10:43)
[2016-11-09] MEDS: LOVENOX SUB-Q SCH (10:43)
--- NOTE | 2016-11-09 10:52 | Progress Note ---
Assessment and Plan Antibiotics: Vancomycin IV 10/30, 11/07 - > s/p Zosyn 4.5 g IV every 8 hour ( 10/30 - 10/31) Ceftriaxone 1 g IV (10/30 - 10/31) Metronidazole 500 mg IV every 8hr ( 10/31 ->11/07 Levaquin 500 mg IV (10/30 - > 11/07 Ms Babin is an 85 y/o AA female who lives independently and has a known history of HTN, DM 2, ESRD/HD, COPD, systolic heart failure (EF 45 -50 percent) , previous bowel perforation with colostomy (~ 6 years ago) who had been hospitalized at 10/21 - 10/24 with hypoglycemia. She had been hospitalized approximately 4 weeks earlier with worsening renal failure requiring initiation of HD (M-W-Fr) via a right chest wall PC ( inserted 10/04/16). She re- presents on 10/30 with abdominal and back pain and is found to have with non- visualization of the gallbladder on HIDA scan. 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 Blood cultures from 10/30 showed 4 of 4 bottles with MRSA ( vancomycin KENY 1). Repeat blood cultures now from 11/06 show 1 of 2 bottles with gram-positive cocci in clusters. Further identification is pending. The patient is seen for further ID recommendations. Conclusions: 1. MRSA bacteremia (4/4 bottles) , central venous catheter related -concerned about the right chest wall permacath being the source, it was placed on 10/04/16. --Initial blood culture positive on 10/30/16, repeat blood culture on 11/06/16 positive with MRSA 2/4 bottles --repeat blood culture on 11/08 pending --patient bacteremic x 8 days, concerned about endovascular infection, the bacteremia most likely persisted because the source was not controlled --echo revealed a vegetation vs fibrin sheath on permacath, the permacath was removed on 11/08, therefore I expect follow up blood cultures to become negative 2. Biliary sepsis with acute cholecystitis - s/p open cholecystectomy - 10/31 3. Leukocytosis - 2nd to above 4. ESRD/HD - Indwelling PermCath ( 10/04/16) Recommendations: -continue vancomycin -obtain repeat blood cultures today -Once blood cultures are documented as negative x 48 hours, a new catheter can be placed. - continue contact precaution. -Blood culture 11/08/16 pending, if negative on 11/10/16, no objection to a new permacath being placed Subjective Date of service: 11/09/16 Principal diagnosis: Permacath related bacteremia Interval history: patient is without new complaints, she said she is has body aches from not moving Objective - Constitutional Vitals: Selected Entries 11/09/16 11/09/16 04:15 08:18 Temperature 97.6 F Pulse Rate [ 94 H Left Radial] Respiratory 12 Rate O2 Sat by Pulse 100 Oximetry Blood Pressure 105/54 [Left Arm] Blood Pressure 71 Mean [Left Arm] General appearance: Present: no acute distress, well-nourished - EENT Eyes: PERRL, EOM intact, no scleral icterus, no conjunctival injection - Neck Neck: supple, normal ROM - Respiratory Respiratory effort: normal Respiratory: bilateral: CTA - Breasts Breasts: deferred - Cardiovascular Rhythm: regular Heart Sounds: Present: S1 & S2 Extremities: no ischemia, pulses intact, No edema, normal temperature - Gastrointestinal General gastrointestinal: Present: soft, non-tender, normal bowel sounds Rectal Exam: deferred (colostomy) - Genitourinary Female genitourinary: deferred - Integumentary Integumentary: clear, warm, dry - Musculoskeletal Musculoskeletal: strength equal bilaterally, generalized weakness - Psychiatric Psychiatric: appropriate mood/affect, cooperative - Labs CBC & Chem 7: 11/09/16 04:56 11/09/16 04:56 Labs: Microbiology 11/08/16 Unknown Vascular Cath Catheter Tip Culture - Preliminary 11/08/16 13:15 Peripheral/Venous Blood Culture - Preliminary Culture in Progress 11/08/16 12:45 Central Venous Line Blood Culture - Preliminary Culture in Progress Laboratory Tests 10/30/16 11/09/16 11/09/16 00:30 04:56 04:56 WBC 17.8 H Plt Count 368 BUN 11 Urine WBC (Auto) 10.0 H
--- NOTE | 2016-11-09 11:17 | Event Note ---
Date: 11/09/16 Pt was sleeping, but awoke without specific complaint. Pt s/p PC removal due to bacteremia (MRSA). Will replace new catheter tomorrow if Pt needs HD at that point. VC vs PC depending on blood cx results. Discussed with pt and her daughter at the bedside. They state understanding and agree to proceed. RBJared explained.
--- NOTE | 2016-11-09 13:03 | Progress Note ---
Assessment and Plan Imp: 1. MRSA bacteremia, persistent 2. Acute cholecystitis 3. s/p Cholecystectomy 4. Acute respiratory failure, hypoxia 5. ESRD Rec: 1. Vancomycin; appreciate ID evaluation; consider RENETTA 2. IS 10x/hour, OOB; f/u CXR in AM 3. Stable pulm-peng; monitor Plan of care reviewed w/ patient, she understands/agrees Subjective Date of service: 11/09/16 Principal diagnosis: Permacath related bacteremia Interval history: No events. Poor historian. Denies SOB, chest pain, cough. Active Medications Acetaminophen (Tylenol) 650 mg PO Q4H PRN PRN Reason: Pain MILD(1-3)/Fever >100.5/LEBRON Bisacodyl (Dulcolax) 10 mg WA QDAY PRN PRN Reason: Constipation unrelieved by MOM Carvedilol (Coreg) 3.125 mg PO BID [facility] Last Admin: 11/09/16 10:39 Dose: 3.125 mg Cefazolin Sodium (Ancef/Sterile Water 2 Gm/20 Ml) 2 gm IV PREOP NR Stop: 11/12/16 07:59 Enoxaparin Sodium (Lovenox) 30 mg SUB-Q QDAY [facility] Last Admin: 11/09/16 10:43 Dose: 30 mg Heparin Sodium (Porcine) (Heparin) 5,000 unit IV MERE PRN PRN Reason: hemodialysis Last Admin: 11/08/16 13:52 Dose: 5,000 unit Heparin Sodium (Porcine) (Heparin) 5,000 unit IV MERE PRN PRN Reason: hemodialysis Hydrophilic Ointment (Vaseline Lip Therapy) 1 applic TP Q2HR PRN PRN Reason: Dry Lips Sodium Chloride (Nacl 0.9% 1000 Ml) 100 mls @ 100 mls/hr IV PRN PRN PRN Reason: FOR DIALYSIS Sodium Chloride (Nacl 0.9% 1000 Ml) 100 mls @ 999 mls/hr IV MERE PRN PRN Reason: Hypotension Insulin Aspart (Novolog) 0 units SUB-Q ACHS [facility] PRN Reason: Protocol Last Admin: 11/09/16 12:51 Dose: 4 units Magnesium Hydroxide (Milk Of Magnesia) 30 ml PO Q4H PRN PRN Reason: Constipation Last Admin: 11/05/16 14:56 Dose: 30 ml Morphine Sulfate (Morphine) 2 mg IV Q4H PRN PRN Reason: Pain, Moderate (4-6) Last Admin: 11/08/16 18:44 Dose: 2 mg Morphine Sulfate (Morphine) 2 mg IV Q3H PRN PRN Reason: Pain, Moderate (4-6) Last Admin: 11/08/16 13:38 Dose: 2 mg Multi-Ingred Cream/Lotion/Oil/Oint (Artificial Tears Ophth Oint) 1 applic OU Q4HR PRN PRN Reason: Dry Eye(s) Ondansetron HCl (Zofran) 4 mg IV Q8H PRN PRN Reason: N/V unrelieved by Reglan Last Admin: 11/05/16 09:21 Dose: 4 mg Pantoprazole Sodium (Protonix) 20 mg PO QDAY YAMILETH Last Admin: 11/09/16 10:43 Dose: 20 mg Vancomycin HCl (Vancomycin Pharmacy To Dose) 1 each IV PKCONSULT YAMILETH PRN Reason: Protocol Objective Vital Signs - 12hr 11/09/16 11/09/16 11/09/16 04:15 08:18 10:00 Temperature 97.6 F Pulse Rate Pulse Rate [ 94 H Left Radial] Pulse Rate [ 96 H Right Radial] Respiratory 20 12 Rate Blood Pressure Blood Pressure 105/54 [Left Arm] Blood Pressure 120/64 [Right Radial Artery] O2 Sat by Pulse 95 100 100 Oximetry 11/09/16 10:39 Temperature Pulse Rate 96 H Pulse Rate [ Left Radial] Pulse Rate [ Right Radial] Respiratory Rate Blood Pressure 125/58 Blood Pressure [Left Arm] Blood Pressure [Right Radial Artery] O2 Sat by Pulse Oximetry Constitutional: no acute distress, alert Eyes: non-icteric ENT: oropharynx moist Neck: supple Effort: normal Ascultation: Bilateral: clear Cardiovascular: regular rate and rhythm (no mrg) Gastrointestinal: normoactive bowel sounds, soft, non-tender, non-distended, other (incision looks good) Extremities: no cyanosis, no edema, pink and warm Neurologic: normal mental status Psychiatric: mood appropriate, affect normal CBC and BMP: 11/09/16 04:56 11/09/16 04:56 ABG, PT/INR, D-dimer: ABG POC ABG pH 7.488 (7.35-7.45) H 11/01/16 05:56 POC ABG pCO2 31.0 (35-45) L 11/01/16 05:56 POC ABG pO2 106 (80-105) H 11/01/16 05:56 POC ABG HCO3 23.5 11/01/16 05:56 POC ABG Total CO2 24 11/01/16 05:56 POC ABG O2 Sat 99 11/01/16 05:56 Abnormal lab findings: Abnormal Labs 10/30/16 10/30/16 10/30/16 09:31 09:31 23:33 WBC 19.0 H RBC 3.11 L Hgb 7.9 L Hct 26.5 L MCH 25 L MCHC RDW 18.2 H Plt Count 460 H Lymph % (Auto) [place] % (Auto) [place] # Seg Neutrophils % Seg Neuts % (Manual) 87.0 H Lymphocytes % (Manual) 3.0 L Monocytes % (Manual) Seg Neutrophils # Seg Neutrophils # Man 16.5 H Lymphocytes # (Manual) 0.6 L Monocytes # (Manual) 1.0 H Basophils # (Manual) 0.2 H POC ABG pH POC ABG pCO2 POC ABG pO2 Sodium Potassium Chloride 97.4 L Carbon Dioxide BUN 61 H Creatinine 7.5 H Glucose 176 H POC Glucose 178 H Calcium 8.0 L AST Albumin 10/31/16 10/31/16 10/31/16 06:30 06:30 07:45 WBC 20.6 H RBC 3.25 L Hgb 8.2 L Hct 27.7 L MCH 25 L MCHC RDW 18.5 H Plt Count Lymph % (Auto) [place] % (Auto) [place] # Seg Neutrophils % Seg Neuts % (Manual) 90.0 H Lymphocytes % (Manual) 3.0 L Monocytes % (Manual) Seg Neutrophils # Seg Neutrophils # Man 18.5 H Lymphocytes # (Manual) 0.6 L Monocytes # (Manual) Basophils # (Manual) POC ABG pH POC ABG pCO2 POC ABG pO2 Sodium Potassium Chloride Carbon Dioxide BUN 32 H Creatinine 4.7 H Glucose 161 H POC Glucose 164 H Calcium 7.7 L AST Albumin 2.5 L 10/31/16 10/31/16 10/31/16 11:15 19:00 21:55 WBC RBC Hgb Hct MCH MCHC RDW Plt Count Lymph % (Auto) [place] % (Auto) [place] # Seg Neutrophils % Seg Neuts % (Manual) Lymphocytes % (Manual) Monocytes % (Manual) Seg Neutrophils # Seg Neutrophils # Man Lymphocytes # (Manual) Monocytes # (Manual) Basophils # (Manual) POC ABG pH 7.579 H POC ABG pCO2 29.6 L POC ABG pO2 304 H Sodium Potassium Chloride Carbon Dioxide BUN Creatinine Glucose POC Glucose 195 H 160 H Calcium AST Albumin 11/01/16 11/01/16 11/01/16 00:50 02:06 05:56 WBC RBC Hgb Hct MCH MCHC RDW Plt Count Lymph % (Auto) [place] % (Auto) [place] # Seg Neutrophils % Seg Neuts % (Manual) Lymphocytes % (Manual) Monocytes % (Manual) Seg Neutrophils # Seg Neutrophils # Man Lymphocytes # (Manual) Monocytes # (Manual) Basophils # (Manual) POC ABG pH 7.488 H POC ABG pCO2 31.0 L POC ABG pO2 106 H Sodium Potassium Chloride Carbon Dioxide 20 L BUN 45 H Creatinine 6.0 H Glucose 159 H POC Glucose 194 H Calcium 7.9 L AST Albumin 11/01/16 11/01/16 11/01/16 08:01 11:32 16:21 WBC RBC Hgb Hct MCH MCHC RDW Plt Count Lymph % (Auto) [place] % (Auto) [place] # Seg Neutrophils % Seg Neuts % (Manual) Lymphocytes % (Manual) Monocytes % (Manual) Seg Neutrophils # Seg Neutrophils # Man Lymphocytes # (Manual) Monocytes # (Manual) Basophils # (Manual) POC ABG pH POC ABG pCO2 POC ABG pO2 Sodium Potassium Chloride Carbon Dioxide BUN Creatinine Glucose POC Glucose 183 H 172 H 189 H Calcium AST Albumin 11/01/16 11/01/16 11/02/16 18:51 22:37 00:10 WBC 23.7 H RBC 3.24 L Hgb 8.3 L Hct 27.4 L MCH 26 L MCHC RDW 18.6 H Plt Count Lymph % (Auto) [place] % (Auto) [place] # Seg Neutrophils % Seg Neuts % (Manual) 91.0 H Lymphocytes % (Manual) 1.0 L Monocytes % (Manual) Seg Neutrophils # Seg Neutrophils # Man 21.6 H Lymphocytes # (Manual) 0.2 L Monocytes # (Manual) Basophils # (Manual) POC ABG pH POC ABG pCO2 POC ABG pO2 Sodium Potassium Chloride 96.9 L Carbon Dioxide BUN Creatinine 2.5 H D Glucose 141 H POC Glucose 162 H Calcium 8.2 L AST 44 H Albumin 2.4 L 11/02/16 11/02/1611/02/17 04:36 04:36 07:46 WBC 23.3 H RBC 3.23 L Hgb 8.0 L Hct 27.6 L MCH 25 L MCHC 29 L RDW 18.6 H Plt Count Lymph % (Auto) [place] % (Auto) [place] # Seg Neutrophils % Seg Neuts % (Manual) Lymphocytes % (Manual) 6.0 L Monocytes % (Manual) Seg Neutrophils # Seg Neutrophils # Man 16.1 H Lymphocytes # (Manual) Monocytes # (Manual) 1.4 H Basophils # (Manual) POC ABG pH POC ABG pCO2 POC ABG pO2 Sodium Potassium 3.5 L Chloride 94.2 L Carbon Dioxide BUN 20 H Creatinine 2.8 H Glucose 136 H POC Glucose 154 H Calcium AST Albumin 11/02/16 11/02/16 11/03/16 11:58 15:33 00:23 WBC RBC Hgb Hct MCH MCHC RDW Plt Count Lymph % (Auto) [place] % (Auto) [place] # Seg Neutrophils % Seg Neuts % (Manual) Lymphocytes % (Manual) Monocytes % (Manual) Seg Neutrophils # Seg Neutrophils # Man Lymphocytes # (Manual) Monocytes # (Manual) Basophils # (Manual) POC ABG pH POC ABG pCO2 POC ABG pO2 Sodium Potassium Chloride Carbon Dioxide BUN Creatinine Glucose POC Glucose 163 H 147 H 134 H Calcium AST Albumin 11/03/16 11/04/16 11/04/16 07:19 00:06 07:50 WBC RBC Hgb Hct MCH MCHC RDW Plt Count Lymph % (Auto) [place] % (Auto) [place] # Seg Neutrophils % Seg Neuts % (Manual) Lymphocytes % (Manual) Monocytes % (Manual) Seg Neutrophils # Seg Neutrophils # Man Lymphocytes # (Manual) Monocytes # (Manual) Basophils # (Manual) POC ABG pH POC ABG pCO2 POC ABG pO2 Sodium Potassium Chloride Carbon Dioxide BUN Creatinine Glucose POC Glucose 113 H 161 H 198 H Calcium AST Albumin 11/04/16 11/04/16 11/04/16 11:11 16:07 21:50 WBC RBC Hgb Hct MCH MCHC RDW Plt Count Lymph % (Auto) [place] % (Auto) [place] # Seg Neutrophils % Seg Neuts % (Manual) Lymphocytes % (Manual) Monocytes % (Manual) Seg Neutrophils # Seg Neutrophils # Man Lymphocytes # (Manual) Monocytes # (Manual) Basophils # (Manual) POC ABG pH POC ABG pCO2 POC ABG pO2 Sodium Potassium Chloride Carbon Dioxide BUN Creatinine Glucose POC Glucose 205 H 251 H 136 H Calcium AST Albumin 11/05/16 11/05/16 11/05/16 03:18 03:18 07:14 WBC 22.1 H RBC 2.87 L Hgb 7.3 L Hct 26.2 L MCH 25 L MCHC 28 L RDW 19.3 H Plt Count Lymph % (Auto) [place] % (Auto) [place] # Seg Neutrophils % Seg Neuts % (Manual) Lymphocytes % (Manual) Monocytes % (Manual) Seg Neutrophils # Seg Neutrophils # Man Lymphocytes # (Manual) Monocytes # (Manual) Basophils # (Manual) POC ABG pH POC ABG pCO2 POC ABG pO2 Sodium 135 L Potassium Chloride 94.8 L Carbon Dioxide BUN 28 H Creatinine 4.5 H D Glucose 128 H POC Glucose 114 H Calcium AST Albumin 11/05/16 11/05/16 11/06/16 11:46 16:27 22:01 WBC RBC Hgb Hct MCH MCHC RDW Plt Count Lymph % (Auto) [place] % (Auto) [place] # Seg Neutrophils % Seg Neuts % (Manual) Lymphocytes % (Manual) Monocytes % (Manual) Seg Neutrophils # Seg Neutrophils # Man Lymphocytes # (Manual) Monocytes # (Manual) Basophils # (Manual) POC ABG pH POC ABG pCO2 POC ABG pO2 Sodium Potassium Chloride Carbon Dioxide BUN Creatinine Glucose POC Glucose 219 H 217 H 183 H Calcium AST Albumin 11/07/16 11/07/16 11/07/16 07:34 12:20 17:59 WBC RBC Hgb Hct MCH MCHC RDW Plt Count Lymph % (Auto) [place] % (Auto) [place] # Seg Neutrophils % Seg Neuts % (Manual) Lymphocytes % (Manual) Monocytes % (Manual) Seg Neutrophils # Seg Neutrophils # Man Lymphocytes # (Manual) Monocytes # (Manual) Basophils # (Manual) POC ABG pH POC ABG pCO2 POC ABG pO2 Sodium Potassium Chloride Carbon Dioxide BUN Creatinine Glucose POC Glucose 137 H 263 H 155 H Calcium AST Albumin 11/07/16 11/08/16 11/08/16 21:25 04:46 04:46 WBC 15.8 H RBC 2.70 L Hgb 7.1 L Hct 23.0 L MCH 26 L MCHC RDW 18.9 H Plt Count Lymph % (Auto) [place] % (Auto) [place] # Seg Neutrophils % Seg Neuts % (Manual) 83.0 H Lymphocytes % (Manual) 6.0 L Monocytes % (Manual) 8.0 H Seg Neutrophils # Seg Neutrophils # Man 13.1 H Lymphocytes # (Manual) 0.9 L Monocytes # (Manual) 1.3 H Basophils # (Manual) POC ABG pH POC ABG pCO2 POC ABG pO2 Sodium 132 L Potassium Chloride 93.0 L Carbon Dioxide BUN 22 H Creatinine 4.6 H Glucose POC Glucose 308 H Calcium AST Albumin 11/08/16 11/08/16 11/09/16 18:05 22:36 04:56 WBC 17.8 H RBC 2.64 L Hgb 6.9 L Hct 22.6 L MCH 26 L MCHC RDW 18.9 H Plt Count Lymph % (Auto) 8.9 L [place] % (Auto) 11.2 H [place] # 2.0 H Seg Neutrophils % 79.1 H Seg Neuts % (Manual) Lymphocytes % (Manual) Monocytes % (Manual) Seg Neutrophils # 14.1 H Seg Neutrophils # Man Lymphocytes # (Manual) Monocytes # (Manual) Basophils # (Manual) POC ABG pH POC ABG pCO2 POC ABG pO2 Sodium Potassium Chloride Carbon Dioxide BUN Creatinine Glucose POC Glucose 204 H 137 H Calcium AST Albumin 11/09/16 11/09/16 11/09/16 04:56 07:39 11:24 WBC RBC Hgb Hct MCH MCHC RDW Plt Count Lymph % (Auto) [place] % (Auto) [place] # Seg Neutrophils % Seg Neuts % (Manual) Lymphocytes % (Manual) Monocytes % (Manual) Seg Neutrophils # Seg Neutrophils # Man Lymphocytes # (Manual) Monocytes # (Manual) Basophils # (Manual) POC ABG pH POC ABG pCO2 POC ABG pO2 Sodium 132 L Potassium Chloride 94.0 L Carbon Dioxide BUN Creatinine 3.0 H Glucose 118 H POC Glucose 134 H 287 H Calcium AST Albumin Chest x-ray: report reviewed, image reviewed
--- NOTE | 2016-11-09 13:22 | Progress Note ---
Assessment and Plan Assessment and plan: MRSA bacteremia - She is on IV vancomycin - Repeat blood cultures was positive for MRSA, and the one done yesterday the preliminary result is negative. - Another blood culture was taken from catheter tip - Vas-Cath was removed yesterday and will put back when hemodialysis is needed - Echocardiography was done and reading is dictated but not seen on the report - ID Consult appreciated - Contact precaution Cholecystitis s/p cholecystectomy -Abdominal pain is getting better End stage renal disease on hemodialysis - Nephrology consult appreciated Hypertension - Controlled DM2 - Continue current management DVT prophylaxis - on lovenox Disposition - Continue inpatient care History Interval history: She was seen and evaluated this morning. She stated that abdominal pain is getting better. He denied fevers but admitted for chills. Hospitalist Physical - Physical exam Narrative exam: Not in cardiopulmonary distress. The patient appeared well nourished and normally developed. Vital signs as documented. Head exam is unremarkable. No scleral icterus . Neck is without jugular venous distension, thyromegaly, or carotid bruits. Lungs are clear to auscultation. Cardiac exam reveals regular rate and Rhythm. First and second heart sounds normal. No murmurs, rubs or gallops. Abdominal has colostomy bag on the right lower abdomen. SENIOR OPERATIONS MANAGER: Alert and oriented 3. No focal weakness. - Constitutional Vitals: Temp Pulse Resp BP Pulse Ox 97.6 F 96 H 12 125/58 100 11/09/16 04:15 11/09/16 10:39 11/09/16 08:18 11/09/16 10:39 11/09/16 10:00 General appearance: Present: no acute distress, well-nourished Results - Labs CBC & Chem 7: 11/09/16 04:56 11/09/16 04:56 Labs: Laboratory Last Values WBC 17.8 K/mm3 (4.5-11.0) H 11/09/16 04:56 RBC 2.64 M/mm3 (3.65-5.03) L 11/09/16 04:56 Hgb 6.9 gm/dl (10.1-14.3) L 11/09/16 04:56 Hct 22.6 % (30.3-42.9) L 11/09/16 04:56 MCV 85 fl (79-97) 11/09/16 04:56 MCH 26 pg (28-32) L 11/09/16 04:56 MCHC 30 % (30-34) 11/09/16 04:56 RDW 18.9 % (13.2-15.2) H 11/09/16 04:56 Plt Count 368 K/mm3 (140-440) 11/09/16 04:56 Lymph % (Auto) 8.9 % (13.4-35.0) L 11/09/16 04:56 [place] % (Auto) 11.2 % (0.0-7.3) H 11/09/16 04:56 Eos % (Auto) 0.4 % (0.0-4.3) 11/09/16 04:56 Baso % (Auto) 0.4 % (0.0-1.8) 11/09/16 04:56 Lymph # 1.6 K/mm3 (1.2-5.4) 11/09/16 04:56 [place] # 2.0 K/mm3 (0.0-0.8) H 11/09/16 04:56 Eos # 0.1 K/mm3 (0.0-0.4) 11/09/16 04:56 Baso # 0.1 K/mm3 (0.0-0.1) 11/09/16 04:56 Add Manual Diff Complete 11/08/16 04:46 Total Counted 100 11/08/16 04:46 Seg Neutrophils % 79.1 % (40.0-70.0) H 11/09/16 04:56 Seg Neuts % (Manual) 83.0 % (40.0-70.0) H 11/08/16 04:46 Band Neutrophils % 1.0 % 11/08/16 04:46 Lymphocytes % (Manual) 6.0 % (13.4-35.0) L 11/08/16 04:46 Reactive Lymphs % (Man) 0 % 11/08/16 04:46 Monocytes % (Manual) 8.0 % (0.0-7.3) H 11/08/16 04:46 Eosinophils % (Manual) 2.0 % (0.0-4.3) 11/08/16 04:46 Basophils % (Manual) 0 % (0.0-1.8) 11/08/16 04:46 Metamyelocytes % 0 % 11/08/16 04:46 Myelocytes % 0 % 11/08/16 04:46 Promyelocytes % 0 % 11/08/16 04:46 Blast Cells % 0 % 11/08/16 04:46 Nucleated RBC % Not Reportable 11/08/16 04:46 Seg Neutrophils # 14.1 K/mm3 (1.8-7.7) H 11/09/16 04:56 Seg Neutrophils # Man 13.1 K/mm3 (1.8-7.7) H 11/08/16 04:46 Band Neutrophils # 0.2 K/mm3 11/08/16 04:46 Lymphocytes # (Manual) 0.9 K/mm3 (1.2-5.4) L 11/08/16 04:46 Abs React Lymphs (Man) 0.0 K/mm3 11/08/16 04:46 Monocytes # (Manual) 1.3 K/mm3 (0.0-0.8) H 11/08/16 04:46 Eosinophils # (Manual) 0.3 K/mm3 (0.0-0.4) 11/08/16 04:46 Basophils # (Manual) 0.0 K/mm3 (0.0-0.1) 11/08/16 04:46 Metamyelocytes # 0.0 K/mm3 11/08/16 04:46 Myelocytes # 0.0 K/mm3 11/08/16 04:46 Promyelocytes # 0.0 K/mm3 11/08/16 04:46 Blast Cells # 0.0 K/mm3 11/08/16 04:46 WBC Morphology Not Reportable 11/08/16 04:46 Hypersegmented Neuts Not Reportable 11/08/16 04:46 Hyposegmented Neuts Not Reportable 11/08/16 04:46 Hypogranular Neuts Not Reportable 11/08/16 04:46 Smudge Cells Not Reportable 11/08/16 04:46 Toxic Granulation Not Reportable 11/08/16 04:46 Toxic Vacuolation Not Reportable 11/08/16 04:46 Dohle Bodies Not Reportable 11/08/16 04:46 Pelger-Huet Anomaly Not Reportable 11/08/16 04:46 Aida Rods Not Reportable 11/08/16 04:46 Platelet Estimate Cons 11/08/16 04:46 Clumped Platelets Not Reportable 11/08/16 04:46 Plt Clumps, EDTA Not Reportable 11/08/16 04:46 Large Platelets Not Reportable 11/08/16 04:46 Giant Platelets Not Reportable 11/08/16 04:46 Platelet Satelliting Not Reportable 11/08/16 04:46 Plt Morphology Comment Not Reportable 11/08/16 04:46 RBC Morphology Not Reportable 11/08/16 04:46 Dimorphic RBCs Not Reportable 11/08/16 04:46 Polychromasia Not Reportable 11/08/16 04:46 Hypochromasia 1+ 11/08/16 04:46 Poikilocytosis Not Reportable 11/08/16 04:46 Anisocytosis 1+ 11/08/16 04:46 Microcytosis Not Reportable 11/08/16 04:46 Macrocytosis Not Reportable 11/08/16 04:46 Spherocytes Not Reportable 11/08/16 04:46 Pappenheimer Bodies Not Reportable 11/08/16 04:46 Sickle Cells Not Reportable 11/08/16 04:46 Target Cells Not Reportable 11/08/16 04:46 Tear Drop Cells Not Reportable 11/08/16 04:46 Ovalocytes Not Reportable 11/08/16 04:46 Helmet Cells Not Reportable 11/08/16 04:46 Munoz-Chloride Bodies Not Reportable 11/08/16 04:46 [place] Rings Not Reportable 11/08/16 04:46 [place] Cells Not Reportable 11/08/16 04:46 Bite Cells Not Reportable 11/08/16 04:46 Crenated Cell Not Reportable 11/08/16 04:46 Elliptocytes Not Reportable 11/08/16 04:46 Acanthocytes (Spur) Not Reportable 11/08/16 04:46 Rouleaux Not Reportable 11/08/16 04:46 Hemoglobin C Crystals Not Reportable 11/08/16 04:46 Schistocytes Not Reportable 11/08/16 04:46 Malaria parasites Not Reportable 11/08/16 04:46 Jalil Bodies Not Reportable 11/08/16 04:46 Hem Pathologist Commnt No 11/08/16 04:46 POC ABG pH 7.488 (7.35-7.45) H 11/01/16 05:56 POC ABG pCO2 31.0 (35-45) L 11/01/16 05:56 POC ABG pO2 106 (80-105) H 11/01/16 05:56 POC ABG HCO3 23.5 11/01/16 05:56 POC ABG Total CO2 24 11/01/16 05:56 POC ABG O2 Sat 99 11/01/16 05:56 POC ABG Base Excess 0 11/01/16 05:56 FiO2 40 % 11/01/16 05:56 Sodium 132 mmol/L (137-145) L 11/09/16 04:56 Potassium 4.3 mmol/L (3.6-5.0) 11/09/16 04:56 Chloride 94.0 mmol/L (98-107) L 11/09/16 04:56 Carbon Dioxide 24 mmol/L (22-30) 11/09/16 04:56 Anion Gap 18 mmol/L 11/09/16 04:56 BUN 11 mg/dL (7-17) 11/09/16 04:56 Creatinine 3.0 mg/dL (0.7-1.2) H 11/09/16 04:56 Estimated GFR 18 ml/min 11/09/16 04:56 BUN/Creatinine Ratio 3.66 % 11/09/16 04:56 Glucose 118 mg/dL (65-100) H 11/09/16 04:56 POC Glucose 287 (70-105) H 11/09/16 11:24 Calcium 8.5 mg/dL (8.4-10.2) 11/09/16 04:56 Phosphorus 3.1 mg/dL (2.5-4.5) 11/02/16 04:36 Magnesium 1.7 mg/dL (1.7-2.3) 11/02/16 04:36 Total Bilirubin 0.6 mg/dL (0.1-1.2) 11/01/16 22:37 AST 44 units/L (5-40) H 11/01/16 22:37 ALT 18 units/L (7-56) 11/01/16 22:37 Alkaline Phosphatase 109 units/L (35-129) 11/01/16 22:37 Total Protein 7.2 g/dL (6.3-8.2) 11/01/16 22:37 Albumin 2.4 g/dL (3.9-5) L 11/01/16 22:37 Albumin/Globulin Ratio 0.5 % 11/01/16 22:37 Urine Color Yellow (Yellow) 10/30/16 00:30 Urine Turbidity Slightly-cloudy (Clear) 10/30/16 00:30 Urine pH 5.0 (5.0-7.0) 10/30/16 00:30 Ur Specific [place] 1.015 (1.003-1.030) 10/30/16 00:30 Urine Protein 100 mg/dl mg/dL (Negative) 10/30/16 00:30 Urine Glucose (UA) Neg mg/dL (Negative) 10/30/16 00:30 Urine Ketones Tr mg/dL (Negative) 10/30/16 00:30 Urine Blood Neg (Negative) 10/30/16 00:30 Urine Nitrite Neg (Negative) 10/30/16 00:30 Urine Bilirubin Neg (Negative) 10/30/16 00:30 Urine Urobilinogen < 2.0 mg/dL (<2.0) 10/30/16 00:30 Ur Leukocyte Esterase Neg (Negative) 10/30/16 00:30 Urine WBC (Auto) 10.0 /HPF (0.0-6.0) H 10/30/16 00:30 Urine RBC (Auto) 2.0 /HPF (0.0-6.0) 10/30/16 00:30 U Epithel Cells (Auto) 6.0 /HPF (0-13.0) 10/30/16 00:30 Amorphous Crystals 1+ 10/30/16 00:30 Hyaline Casts 16 /LPF 10/30/16 00:30 Granular Casts 4 /LPF 10/30/16 00:30 Urine Mucus Few /HPF 10/30/16 00:30 Blood Type B POSITIVE 10/31/16 17:38 Antibody Screen Negative 10/31/16 17:38
[2016-11-10 06:02] LABS: Hematocrit 23.8 % (30.3-42.9); Hemoglobin 7.3 gm/dl (10.1-14.3); Mean Corpuscular HGB Conc 31 % (30-34); Mean Corpuscular Hemoglobin 26 pg (28-32); Mean Corpuscular Volume 85 fl (79-97); Platelet Count 431 K/mm3 (140-440); Red Cell Distribution Width 19.9 % (13.2-15.2)
[2016-11-10 06:20] LABS: BUN/Creatinine Ratio 3.77; Calcium 8.6 mg/dL (8.4-10.2); Chloride 94.2 mmol/L (98-107); Potassium 4.3 mmol/L (3.6-5.0)
[2016-11-10 07:01] LABS: Blastocytes % (Manual) 0 %
[2016-11-10 07:02] LABS: Anisocytosis 1+; Diff Status Complete; Hypochromasia 1+; Platelet Estimate Consistent w Auto
[2016-11-10] MEDS ORDERED: ANCEF/STERILE WATER 2 GM/20 ML IV NR (08:00)
[2016-11-10] MEDS ORDERED: HEPARIN/NS 5000 UNIT/500ML(CATH LAB) 500 ML IR ONE (09:37)
[2016-11-10] MEDS ORDERED: HEPARIN 10,000 UNITS/10 ML ONE (09:37)
[2016-11-10] MEDS ORDERED: SUBLIMAZE ONE (09:38)
[2016-11-10] MEDS ORDERED: VERSED ONE (09:38)
[2016-11-10] MEDS ORDERED: XYLOCAINE 1%/ EPI 1:100,000 INFILTRATI ONE (09:38)
[2016-11-10] MEDS ORDERED: ANCEF/STERILE WATER 2 GM/20 ML 2 GM/20 ML SYRINGE IV ONE (09:53)
[2016-11-10] MEDS ORDERED: NACL 0.9% 250ML 250 ML ONE (09:53)
--- NOTE | 2016-11-10 10:13 | XRay Report ---
AP CHEST: HISTORY: Shortness of breath, reevaluate atelectasis. FINDINGS: The right middle or lower lobe atelectasis seen on 11/02/16 exam has resolved. The right lung is clear. Partial atelectasis in the left lower lobe is suspected which is unchanged. The left upper lobe remains well-aerated. Mild cardiomegaly is stable. The endotracheal tube and dialysis catheter have been removed.
--- NOTE | 2016-11-10 10:20 | Operative Report ---
Operative Report Operative Report: EXAM: ULTRASOUND AND FLUOROSCOPIC GUIDED PLACEMENT OF VAS-CATH CLINICAL INDICATION: END-STAGE RENAL DISEASE REQUIRING DIALYSIS ACCESS, SEPSIS DATE: 11/10/0407/05/2017 PROCEDURE: Following an explanation of the risks, benefits and alternatives; written informed consent was obtained. The patient was brought to the angiographic suite and placed in supine position on the examination table. Initial ultrasound survey of the right groin demonstrated a patent right common femoral vein. The right groin was prepped and draped in the usual sterile fashion. 1% lidocaine was used for anesthesia. Under ultrasound guidance, the right common femoral vein was cannulated with a 7 cm 18-gauge needle. A 0.035 guidewire was advanced centrally under fluoroscopy. The needle was removed. Following serial dilation, a 30 cm dialysis catheter was placed over the guidewire and advance centrally. The tip of the catheter was placed in the IVC just distal to the patient's previously placed IVC filter. All 3 ports flushed and aspirated easily. The dialysis ports were locked with appropriate volumes of heparin. The pigtail was locked with heparinized saline. The catheter was securely fastened of the skin surface using 3-0 nylon suture and sterile dressings were then applied. The patient tolerated the procedure well. There were no immediate post procedure palpitations. Continuous cardiopulmonary monitoring was utilized. No sedation was utilized. IMPRESSION: 1) Ultrasound and fluoroscopic guided placement of Vas-Cath via the right common femoral vein.
[2016-11-10] MEDS: NOVOLOG SUB-Q SCH ×3 (12:36→21:59)
[2016-11-10] MEDS: HEPARIN IV PRN (12:38)
--- NOTE | 2016-11-10 14:13 | Progress Note ---
Assessment and Plan Current antibiotics: Vancomycin IV (Pulse doses) 10/30, 11/07 --> Previous antibiotics: Zosyn 4.5 g IV q8h 10/30-10/31 Ceftriaxone 1 g IV q24h 10/30-10/31 Metronidazole 500 mg IV q8h 10/31-11/07 Levaquin 500 mg IV q24h 10/30-11/07 ASSESSMENT: Barbra Babni is an 85 y/o female who lives independently with HTN, type 2 DM, ESRD on maintenance HD, COPD, systolic heart failure (EF 45-50 percent), previous bowel perforation with colostomy (~ 6 years ago) who had been hospitalized at 10/21-10/24 with hypoglycemia. She had been hospitalized approximately 4 weeks earlier with worsening renal failure requiring initiation of HD (M-W-Fr) via a right chest wall PC ( inserted 10/04/16). She re- presents on 10/30 with abdominal and back pain and is found to have with non- visualization of the gallbladder on HIDA scan. 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 Cultures show MRSA bacteremia. Problem list: 1. MRSA bacteremia - 10/30:4/4 bottles + -11/06: 3/4 bottles + -Likely right chest wall permacath source. removed 11/08 -Repeat blood cultures on 11/08 NGTD -11/07 transthoracic echocardiogram showed vegetation versus fibrin sheath on the catheter 2. Biliary sepsis with acute cholecystitis - s/p open cholecystectomy - 10/31 3. Leukocytosis -2nd to above -Improving 4. ESRD -Maintenance HD -New Vas-Cath placed in right common femoral vein 11/10 5. Back pain -Etiology unclear 6. Anemia 7. Type 2 diabetes mellitus PLAN: 1. Continue vancomycin 2. Await finalization of repeat blood cultures from 11/08 3. If repeat blood cultures still positive will need RENETTA 4. If back pain persists or worsens a need workup for infection 5. Continued supportive measures Barrie Martinez MD [facility] Office: [phone] Subjective Date of service: 11/10/16 Principal diagnosis: Permacath related bacteremia Interval history: Complains of mid back pain which recently started. No subjective fever nor chills. No cough, shortness of breath or pleuritic chest pain. Objective - Exam Narrative Exam: GENERAL: Well-developed, thin female who is alert and in no acute distress. Appears somewhat chronically ill. HEAD: Normocephalic. No lesions seen. Mild by temporalis muscle wasting. EYES: Pupils are equal reactive to light and accommodation. There is no scleral icterus. Optic fundi are not examined. Bilateral arcus senilis. EARS: Normal external ears. THROAT: Oropharynx is normal with no evidence of oral candidiasis or pharyngitis. Somewhat poor dentition. NECK: Supple. No enlargement of the thyroid gland. No significant cervical lymphadenopathy. No jugular venous distention at 30. LUNGS: Clear with no adventitious sounds. CHEST: Previous right sided PermCath site with no signs of infection. HEART: Regular rate. S1 and S2 are normal. There are no murmurs, gallops, clicks or rubs heard. ABDOMEN: Soft with mild right upper quadrant tenderness without guarding or rebound. Liver and spleen are not palpably enlarged or tender. No palpable masses. Bowel sounds are normoactive. Colostomy in place with healthy mucosa and functioning normally. Right upper quadrant abdominal wound healing with no signs of infection. EXTREMITIES: No rash, peripheral lymphadenopathy, clubbing or edema. Right groin Vas-Cath that was placed earlier today. Mild tenderness over upper lumbar spine with no other objective abnormalities. : Normal external female NEUROLOGIC: No focal findings. - Constitutional Vitals: Vital Signs Temp Pulse Resp BP Pulse Ox 97.8 F 77 16 126/60 99 11/10/16 10:30 11/10/16 12:45 11/10/16 10:30 11/10/16 12:45 11/10/16 08:12 Temperature -Last 24 Hours Temperature 97.8 F Temperature 98.2 F Temperature 98.1 F Temperature 98.2 F Temperature 98.3 F - Labs CBC & Chem 7: 11/10/16 04:38 11/10/16 04:38 Labs: Abnormal lab results Microbiology 11/09/16 12:33 Peripheral/Venous Blood Culture - Preliminary NO GROWTH AFTER 24 HOURS 11/09/16 12:23 Peripheral/Venous Blood Culture - Preliminary NO GROWTH AFTER 24 HOURS 11/08/16 13:15 Peripheral/Venous Blood Culture - Preliminary NO GROWTH AFTER 48 HOURS 11/08/16 Unknown Vascular Cath Catheter Tip Culture - NGTD 11/06/16 Unknown Peripheral/Venous Blood Culture - Final Methicillin Resist S. Aureus (1/2 bottles) 11/06/16 Unknown Peripheral/Venous Blood Culture - Preliminary Methicillin Resist S. Aureus (2/2 bottles) 10/30/16 01:13 Peripheral/Venous Blood Culture - Final Methicillin Resist S. Aureus (2/2 bottles) 10/30/16 01:13 Peripheral/Venous Blood Culture - Final Methicillin Resist S. Aureus (2/2 bottles)
[2016-11-10] MEDS: PROTONIX PO SCH (14:14)
[2016-11-10] MEDS: LOVENOX SUB-Q SCH (14:14)
[2016-11-10] MEDS: COREG PO SCH ×2 (14:17→21:34)
--- NOTE | 2016-11-10 14:41 | Progress Note ---
Assessment and Plan Imp: 1. MRSA bacteremia, persistent 2. Acute cholecystitis 3. s/p Cholecystectomy 4. Acute respiratory failure, hypoxia 5. ESRD Rec: 1. Vancomycin; appreciate ID evaluation; consider RENETTA 2. IS 10x/hour, OOB; f/u CXR periodically 3. Stable pulm-peng; monitor Plan of care reviewed w/ patient, she understands/agrees Subjective Date of service: 11/10/16 Principal diagnosis: Permacath related bacteremia Interval history: Vascath placed, undergoing HD. Poor historian. Denies SOB, chest pain, cough. Active Medications Acetaminophen (Tylenol) 650 mg PO Q4H PRN PRN Reason: Pain MILD(1-3)/Fever >100.5/LEBRON Bisacodyl (Dulcolax) 10 mg RI QDAY PRN PRN Reason: Constipation unrelieved by MOM Carvedilol (Coreg) 3.125 mg PO BID [facility] Last Admin: 11/10/16 14:17 Dose: Not Given Cefazolin Sodium (Ancef/Sterile Water 2 Gm/20 Ml) 2 gm IV PREOP NR Stop: 11/12/16 07:59 Enoxaparin Sodium (Lovenox) 30 mg SUB-Q QDAY [facility] Last Admin: 11/10/16 14:14 Dose: Not Given Heparin Sodium (Porcine) (Heparin) 5,000 unit IV MERE PRN PRN Reason: hemodialysis Last Admin: 11/10/16 12:38 Dose: 5,000 unit Heparin Sodium (Porcine) (Heparin) 5,000 unit IV MERE PRN PRN Reason: hemodialysis Hydrophilic Ointment (Vaseline Lip Therapy) 1 applic TP Q2HR PRN PRN Reason: Dry Lips Sodium Chloride (Nacl 0.9% 1000 Ml) 100 mls @ 100 mls/hr IV PRN PRN PRN Reason: FOR DIALYSIS Sodium Chloride (Nacl 0.9% 1000 Ml) 100 mls @ 999 mls/hr IV MERE PRN PRN Reason: Hypotension Vancomycin HCl (Vancomycin/Ns 1 Gm/250 Ml) 1 gm in 250 mls @ 167.007 mls/hr IV ONCE ONE Stop: 11/10/16 19:29 Insulin Aspart (Novolog) 0 units SUB-Q ACHS YAMILETH PRN Reason: Protocol Last Admin: 11/10/16 12:36 Dose: Not Given Magnesium Hydroxide (Milk Of Magnesia) 30 ml PO Q4H PRN PRN Reason: Constipation Last Admin: 11/05/16 14:56 Dose: 30 ml Morphine Sulfate (Morphine) 2 mg IV Q3H PRN PRN Reason: Pain, Moderate (4-6) Last Admin: 11/08/16 13:38 Dose: 2 mg Multi-Ingred Cream/Lotion/Oil/Oint (Artificial Tears Ophth Oint) 1 applic OU Q4HR PRN PRN Reason: Dry Eye(s) Ondansetron HCl (Zofran) 4 mg IV Q8H PRN PRN Reason: N/V unrelieved by Reglan Last Admin: 11/05/16 09:21 Dose: 4 mg Pantoprazole Sodium (Protonix) 20 mg PO QDAY YAMILETH Last Admin: 11/10/16 14:14 Dose: Not Given Vancomycin HCl (Vancomycin Pharmacy To Dose) 1 each IV PKCONSULT YAMILETH PRN Reason: Protocol Objective Vital Signs - 12hr 11/10/16 11/10/16 11/10/16 06:00 08:12 10:30 Temperature 98.1 F 98.2 F 97.8 F Pulse Rate 77 Pulse Rate [ 89 Left Radial] Pulse Rate [ 91 H Right Radial] Respiratory 18 16 16 Rate Blood Pressure 140/77 Blood Pressure 131/60 [Left Arm] Blood Pressure 153/74 [Right Radial Artery] O2 Sat by Pulse 98 99 Oximetry 11/10/16 11/10/16 11/10/16 10:45 11:00 11:15 Temperature Pulse Rate 89 74 86 Pulse Rate [ Left Radial] Pulse Rate [ Right Radial] Respiratory Rate Blood Pressure 137/60 126/53 129/66 Blood Pressure [Left Arm] Blood Pressure [Right Radial Artery] O2 Sat by Pulse Oximetry 11/10/16 11/10/16 11/10/16 11:30 11:45 12:00 Temperature Pulse Rate 86 71 93 H Pulse Rate [ Left Radial] Pulse Rate [ Right Radial] Respiratory Rate Blood Pressure 120/65 124/51 111/60 Blood Pressure [Left Arm] Blood Pressure [Right Radial Artery] O2 Sat by Pulse Oximetry 11/10/16 11/10/16 11/10/16 12:15 12:30 12:45 Temperature Pulse Rate 96 H 95 H 77 Pulse Rate [ Left Radial] Pulse Rate [ Right Radial] Respiratory Rate Blood Pressure 110/60 117/68 126/60 Blood Pressure [Left Arm] Blood Pressure [Right Radial Artery] O2 Sat by Pulse Oximetry 11/10/16 14:10 Temperature 97.6 F Pulse Rate 60 Pulse Rate [ Left Radial] Pulse Rate [ Right Radial] Respiratory 16 Rate Blood Pressure 100/54 Blood Pressure [Left Arm] Blood Pressure [Right Radial Artery] O2 Sat by Pulse Oximetry Constitutional: no acute distress, alert Eyes: non-icteric ENT: oropharynx moist Neck: supple Effort: normal Ascultation: Bilateral: clear Cardiovascular: regular rate and rhythm (no mrg) Gastrointestinal: normoactive bowel sounds, soft, non-tender, non-distended, other (incision looks good) Extremities: no cyanosis, no edema, pink and warm Neurologic: normal mental status Psychiatric: mood appropriate, affect normal CBC and BMP: 11/10/16 04:38 11/10/16 04:38 ABG, PT/INR, D-dimer: ABG POC ABG pH 7.488 (7.35-7.45) H 11/01/16 05:56 POC ABG pCO2 31.0 (35-45) L 11/01/16 05:56 POC ABG pO2 106 (80-105) H 11/01/16 05:56 POC ABG HCO3 23.5 11/01/16 05:56 POC ABG Total CO2 24 11/01/16 05:56 POC ABG O2 Sat 99 11/01/16 05:56 Abnormal lab findings: Abnormal Labs 10/30/16 10/30/16 10/30/16 09:31 09:31 23:33 WBC 19.0 H RBC 3.11 L Hgb 7.9 L Hct 26.5 L MCH 25 L MCHC RDW 18.2 H Plt Count 460 H Lymph % (Auto) [place] % (Auto) [place] # Seg Neutrophils % Seg Neuts % (Manual) 87.0 H Lymphocytes % (Manual) 3.0 L Monocytes % (Manual) Seg Neutrophils # Seg Neutrophils # Man 16.5 H Lymphocytes # (Manual) 0.6 L Monocytes # (Manual) 1.0 H Basophils # (Manual) 0.2 H POC ABG pH POC ABG pCO2 POC ABG pO2 Sodium Potassium Chloride 97.4 L Carbon Dioxide BUN 61 H Creatinine 7.5 H Glucose 176 H POC Glucose 178 H Calcium 8.0 L AST Albumin 0110/31/16 10/31/16 06:30 06:30 07:45 WBC 20.6 H RBC 3.25 L Hgb 8.2 L Hct 27.7 L MCH 25 L MCHC RDW 18.5 H Plt Count Lymph % (Auto) [place] % (Auto) [place] # Seg Neutrophils % Seg Neuts % (Manual) 90.0 H Lymphocytes % (Manual) 3.0 L Monocytes % (Manual) Seg Neutrophils # Seg Neutrophils # Man 18.5 H Lymphocytes # (Manual) 0.6 L Monocytes # (Manual) Basophils # (Manual) POC ABG pH POC ABG pCO2 POC ABG pO2 Sodium Potassium Chloride Carbon Dioxide BUN 32 H Creatinine 4.7 H Glucose 161 H POC Glucose 164 H Calcium 7.7 L AST Albumin 2.5 L 10/31/16 10/31/16 10/31/16 11:15 19:00 21:55 WBC RBC Hgb Hct MCH MCHC RDW Plt Count Lymph % (Auto) [place] % (Auto) [place] # Seg Neutrophils % Seg Neuts % (Manual) Lymphocytes % (Manual) Monocytes % (Manual) Seg Neutrophils # Seg Neutrophils # Man Lymphocytes # (Manual) Monocytes # (Manual) Basophils # (Manual) POC ABG pH 7.579 H POC ABG pCO2 29.6 L POC ABG pO2 304 H Sodium Potassium Chloride Carbon Dioxide BUN Creatinine Glucose POC Glucose 195 H 160 H Calcium AST Albumin 11/01/16 11/01/16 11/01/16 00:50 02:06 05:56 WBC RBC Hgb Hct MCH MCHC RDW Plt Count Lymph % (Auto) [place] % (Auto) [place] # Seg Neutrophils % Seg Neuts % (Manual) Lymphocytes % (Manual) Monocytes % (Manual) Seg Neutrophils # Seg Neutrophils # Man Lymphocytes # (Manual) Monocytes # (Manual) Basophils # (Manual) POC ABG pH 7.488 H POC ABG pCO2 31.0 L POC ABG pO2 106 H Sodium Potassium Chloride Carbon Dioxide 20 L BUN 45 H Creatinine 6.0 H Glucose 159 H POC Glucose 194 H Calcium 7.9 L AST Albumin 11/01/16 11/01/16 11/01/16 08:01 11:32 16:21 WBC RBC Hgb Hct MCH MCHC RDW Plt Count Lymph % (Auto) [place] % (Auto) [place] # Seg Neutrophils % Seg Neuts % (Manual) Lymphocytes % (Manual) Monocytes % (Manual) Seg Neutrophils # Seg Neutrophils # Man Lymphocytes # (Manual) Monocytes # (Manual) Basophils # (Manual) POC ABG pH POC ABG pCO2 POC ABG pO2 Sodium Potassium Chloride Carbon Dioxide BUN Creatinine Glucose POC Glucose 183 H 172 H 189 H Calcium AST Albumin 11/01/16 11/01/16 11/02/16 18:51 22:37 00:10 WBC 23.7 H RBC 3.24 L Hgb 8.3 L Hct 27.4 L MCH 26 L MCHC RDW 18.6 H Plt Count Lymph % (Auto) [place] % (Auto) [place] # Seg Neutrophils % Seg Neuts % (Manual) 91.0 H Lymphocytes % (Manual) 1.0 L Monocytes % (Manual) Seg Neutrophils # Seg Neutrophils # Man 21.6 H Lymphocytes # (Manual) 0.2 L Monocytes # (Manual) Basophils # (Manual) POC ABG pH POC ABG pCO2 POC ABG pO2 Sodium Potassium Chloride 96.9 L Carbon Dioxide BUN Creatinine 2.5 H D Glucose 141 H POC Glucose 162 H Calcium 8.2 L AST 44 H Albumin 2.4 L 11/02/16 11/02/16 11/02/16 04:36 04:36 07:46 WBC 23.3 H RBC 3.23 L Hgb 8.0 L Hct 27.6 L MCH 25 L MCHC 29 L RDW 18.6 H Plt Count Lymph % (Auto) [place] % (Auto) [place] # Seg Neutrophils % Seg Neuts % (Manual) Lymphocytes % (Manual) 6.0 L Monocytes % (Manual) Seg Neutrophils # Seg Neutrophils # Man 16.1 H Lymphocytes # (Manual) Monocytes # (Manual) 1.4 H Basophils # (Manual) POC ABG pH POC ABG pCO2 POC ABG pO2 Sodium Potassium 3.5 L Chloride 94.2 L Carbon Dioxide BUN 20 H Creatinine 2.8 H Glucose 136 H POC Glucose 154 H Calcium AST Albumin 11/02/16 11/02/16 11/03/16 11:58 15:33 00:23 WBC RBC Hgb Hct MCH MCHC RDW Plt Count Lymph % (Auto) [place] % (Auto) [place] # Seg Neutrophils % Seg Neuts % (Manual) Lymphocytes % (Manual) Monocytes % (Manual) Seg Neutrophils # Seg Neutrophils # Man Lymphocytes # (Manual) Monocytes # (Manual) Basophils # (Manual) POC ABG pH POC ABG pCO2 POC ABG pO2 Sodium Potassium Chloride Carbon Dioxide BUN Creatinine Glucose POC Glucose 163 H 147 H 134 H Calcium AST Albumin 11/03/16 11/04/16 11/04/16 07:19 00:06 07:50 WBC RBC Hgb Hct MCH MCHC RDW Plt Count Lymph % (Auto) [place] % (Auto) [place] # Seg Neutrophils % Seg Neuts % (Manual) Lymphocytes % (Manual) Monocytes % (Manual) Seg Neutrophils # Seg Neutrophils # Man Lymphocytes # (Manual) Monocytes # (Manual) Basophils # (Manual) POC ABG pH POC ABG pCO2 POC ABG pO2 Sodium Potassium Chloride Carbon Dioxide BUN Creatinine Glucose POC Glucose 113 H 161 H 198 H Calcium AST Albumin 11/04/16 11/04/16 11/04/16 11:11 16:07 21:50 WBC RBC Hgb Hct MCH MCHC RDW Plt Count Lymph % (Auto) [place] % (Auto) [place] # Seg Neutrophils % Seg Neuts % (Manual) Lymphocytes % (Manual) Monocytes % (Manual) Seg Neutrophils # Seg Neutrophils # Man Lymphocytes # (Manual) Monocytes # (Manual) Basophils # (Manual) POC ABG pH POC ABG pCO2 POC ABG pO2 Sodium Potassium Chloride Carbon Dioxide BUN Creatinine Glucose POC Glucose 205 H 251 H 136 H Calcium AST Albumin 11/05/16 11/05/16 11/05/16 03:18 03:18 07:14 WBC 22.1 H RBC 2.87 L Hgb 7.3 L Hct 26.2 L MCH 25 L MCHC 28 L RDW 19.3 H Plt Count Lymph % (Auto) [place] % (Auto) [place] # Seg Neutrophils % Seg Neuts % (Manual) Lymphocytes % (Manual) Monocytes % (Manual) Seg Neutrophils # Seg Neutrophils # Man Lymphocytes # (Manual) Monocytes # (Manual) Basophils # (Manual) POC ABG pH POC ABG pCO2 POC ABG pO2 Sodium 135 L Potassium Chloride 94.8 L Carbon Dioxide BUN 28 H Creatinine 4.5 H D Glucose 128 H POC Glucose 114 H Calcium AST Albumin 11/05/16 11/05/16 11/06/16 11:46 16:27 22:01 WBC RBC Hgb Hct MCH MCHC RDW Plt Count Lymph % (Auto) [place] % (Auto) [place] # Seg Neutrophils % Seg Neuts % (Manual) Lymphocytes % (Manual) Monocytes % (Manual) Seg Neutrophils # Seg Neutrophils # Man Lymphocytes # (Manual) Monocytes # (Manual) Basophils # (Manual) POC ABG pH POC ABG pCO2 POC ABG pO2 Sodium Potassium Chloride Carbon Dioxide BUN Creatinine Glucose POC Glucose 219 H 217 H 183 H Calcium AST Albumin 11/07/16 11/07/16 11/07/16 07:34 12:20 17:59 WBC RBC Hgb Hct MCH MCHC RDW Plt Count Lymph % (Auto) [place] % (Auto) [place] # Seg Neutrophils % Seg Neuts % (Manual) Lymphocytes % (Manual) Monocytes % (Manual) Seg Neutrophils # Seg Neutrophils # Man Lymphocytes # (Manual) Monocytes # (Manual) Basophils # (Manual) POC ABG pH POC ABG pCO2 POC ABG pO2 Sodium Potassium Chloride Carbon Dioxide BUN Creatinine Glucose POC Glucose 137 H 263 H 155 H Calcium AST Albumin 11/07/16 11/08/16 11/08/16 21:25 04:46 04:46 WBC 15.8 H RBC 2.70 L Hgb 7.1 L Hct 23.0 L MCH 26 L MCHC RDW 18.9 H Plt Count Lymph % (Auto) [place] % (Auto) [place] # Seg Neutrophils % Seg Neuts % (Manual) 83.0 H Lymphocytes % (Manual) 6.0 L Monocytes % (Manual) 8.0 H Seg Neutrophils # Seg Neutrophils # Man 13.1 H Lymphocytes # (Manual) 0.9 L Monocytes # (Manual) 1.3 H Basophils # (Manual) POC ABG pH POC ABG pCO2 POC ABG pO2 Sodium 132 L Potassium Chloride 93.0 L Carbon Dioxide BUN 22 H Creatinine 4.6 H Glucose POC Glucose 308 H Calcium AST Albumin 11/08/16 11/08/16 11/09/16 18:05 22:36 04:56 WBC 17.8 H RBC 2.64 L Hgb 6.9 L Hct 22.6 L MCH 26 L MCHC RDW 18.9 H Plt Count Lymph % (Auto) 8.9 L [place] % (Auto) 11.2 H [place] # 2.0 H Seg Neutrophils % 79.1 H Seg Neuts % (Manual) Lymphocytes % (Manual) Monocytes % (Manual) Seg Neutrophils # 14.1 H Seg Neutrophils # Man Lymphocytes # (Manual) Monocytes # (Manual) Basophils # (Manual) POC ABG pH POC ABG pCO2 POC ABG pO2 Sodium Potassium Chloride Carbon Dioxide BUN Creatinine Glucose POC Glucose 204 H 137 H Calcium AST Albumin 11/09/16 11/09/16 11/09/16 04:56 07:39 11:24 WBC RBC Hgb Hct MCH MCHC RDW Plt Count Lymph % (Auto) [place] % (Auto) [place] # Seg Neutrophils % Seg Neuts % (Manual) Lymphocytes % (Manual) Monocytes % (Manual) Seg Neutrophils # Seg Neutrophils # Man Lymphocytes # (Manual) Monocytes # (Manual) Basophils # (Manual) POC ABG pH POC ABG pCO2 POC ABG pO2 Sodium 132 L Potassium Chloride 94.0 L Carbon Dioxide BUN Creatinine 3.0 H Glucose 118 H POC Glucose 134 H 287 H Calcium AST Albumin 11/09/16 11/09/16 11/10/16 16:16 22:24 04:38 WBC 15.0 H RBC 2.80 L Hgb 7.3 L Hct 23.8 L MCH 26 L MCHC RDW 19.9 H Plt Count Lymph % (Auto) [place] % (Auto) [place] # Seg Neutrophils % Seg Neuts % (Manual) Lymphocytes % (Manual) 12.0 L Monocytes % (Manual) 13.0 H Seg Neutrophils # Seg Neutrophils # Man 10.2 H Lymphocytes # (Manual) Monocytes # (Manual) 2.0 H Basophils # (Manual) POC ABG pH POC ABG pCO2 POC ABG pO2 Sodium Potassium Chloride Carbon Dioxide BUN Creatinine Glucose POC Glucose 336 H 127 H Calcium AST Albumin 11/10/16 11/10/16 04:38 07:23 WBC RBC Hgb Hct MCH MCHC RDW Plt Count Lymph % (Auto) [place] % (Auto) [place] # Seg Neutrophils % Seg Neuts % (Manual) Lymphocytes % (Manual) Monocytes % (Manual) Seg Neutrophils # Seg Neutrophils # Man Lymphocytes # (Manual) Monocytes # (Manual) Basophils # (Manual) POC ABG pH POC ABG pCO2 POC ABG pO2 Sodium 133 L Potassium Chloride 94.2 L Carbon Dioxide BUN Creatinine 4.5 H Glucose 117 H POC Glucose 155 H Calcium AST Albumin Chest x-ray: report reviewed, image reviewed
--- NOTE | 2016-11-10 15:11 | Progress Note ---
Assessment and Plan Assessment and plan: MRSA bacteremia - She is on IV vancomycin - Repeat blood cultures was positive for MRSA, and the one done yesterday the preliminary result is negative. - Another blood culture was taken from catheter tip - Vas-Cath was removed yesterday and femoral vasc cath was placed - Echocardiography was done and reading is dictated but not seen on the report - ID Consult appreciated - Contact precaution Cholecystitis s/p cholecystectomy -Abdominal pain is getting better End stage renal disease on hemodialysis - Femoral vasc cath was placed Hypertension - Controlled DM2 - Continue current management DVT prophylaxis - on lovenox Disposition - Continue inpatient care History Interval history: She was seen and evaluated this morning. She stated she has back pain. she denied fevers but admitted for chills. Hospitalist Physical - Physical exam Narrative exam: Not in cardiopulmonary distress. The patient appeared well nourished and normally developed. Vital signs as documented. Head exam is unremarkable. No scleral icterus . Neck is without jugular venous distension, thyromegaly, or carotid bruits. Lungs are clear to auscultation. Cardiac exam reveals regular rate and Rhythm. First and second heart sounds normal. No murmurs, rubs or gallops. Abdominal has colostomy bag on the left lower abdomen. SOLE DYER: Alert and oriented 3. No focal weakness. - Constitutional Vitals: Temp Pulse Resp BP Pulse Ox 97.6 F 60 16 100/54 99 11/10/16 14:10 11/10/16 14:10 11/10/16 14:10 11/10/16 14:10 11/10/16 08:12 General appearance: Present: no acute distress, well-nourished Results - Labs CBC & Chem 7: 11/10/16 04:38 11/10/16 04:38 Labs: Laboratory Last Values WBC 15.0 K/mm3 (4.5-11.0) H 11/10/16 04:38 RBC 2.80 M/mm3 (3.65-5.03) L 11/10/16 04:38 Hgb 7.3 gm/dl (10.1-14.3) L 11/10/16 04:38 Hct 23.8 % (30.3-42.9) L 11/10/16 04:38 MCV 85 fl (79-97) 11/10/16 04:38 MCH 26 pg (28-32) L 11/10/16 04:38 MCHC 31 % (30-34) 11/10/16 04:38 RDW 19.9 % (13.2-15.2) H 11/10/16 04:38 Plt Count 431 K/mm3 (140-440) 11/10/16 04:38 Lymph % (Auto) 8.9 % (13.4-35.0) L 11/09/16 04:56 [place] % (Auto) 11.2 % (0.0-7.3) H 11/09/16 04:56 Eos % (Auto) 0.4 % (0.0-4.3) 11/09/16 04:56 Baso % (Auto) 0.4 % (0.0-1.8) 11/09/16 04:56 Lymph # 1.6 K/mm3 (1.2-5.4) 11/09/16 04:56 [place] # 2.0 K/mm3 (0.0-0.8) H 11/09/16 04:56 Eos # 0.1 K/mm3 (0.0-0.4) 11/09/16 04:56 Baso # 0.1 K/mm3 (0.0-0.1) 11/09/16 04:56 Add Manual Diff Complete 11/10/16 04:38 Total Counted 100 11/10/16 04:38 Seg Neutrophils % 79.1 % (40.0-70.0) H 11/09/16 04:56 Seg Neuts % (Manual) 68.0 % (40.0-70.0) 11/10/16 04:38 Band Neutrophils % 6.0 % 11/10/16 04:38 Lymphocytes % (Manual) 12.0 % (13.4-35.0) L 11/10/16 04:38 Reactive Lymphs % (Man) 0 % 11/10/16 04:38 Monocytes % (Manual) 13.0 % (0.0-7.3) H 11/10/16 04:38 Eosinophils % (Manual) 1.0 % (0.0-4.3) 11/10/16 04:38 Basophils % (Manual) 0 % (0.0-1.8) 11/08/16 04:46 Metamyelocytes % 0 % 11/10/16 04:38 Myelocytes % 0 % 11/10/16 04:38 Promyelocytes % 0 % 11/10/16 04:38 Blast Cells % 0 % 11/10/16 04:38 Nucleated RBC % Not Reportable 11/10/16 04:38 Seg Neutrophils # 14.1 K/mm3 (1.8-7.7) H 11/09/16 04:56 Seg Neutrophils # Man 10.2 K/mm3 (1.8-7.7) H 11/10/16 04:38 Band Neutrophils # 0.9 K/mm3 11/10/16 04:38 Lymphocytes # (Manual) 1.8 K/mm3 (1.2-5.4) 11/10/16 04:38 Abs React Lymphs (Man) 0.0 K/mm3 11/10/16 04:38 Monocytes # (Manual) 2.0 K/mm3 (0.0-0.8) H 11/10/16 04:38 Eosinophils # (Manual) 0.2 K/mm3 (0.0-0.4) 11/10/16 04:38 Basophils # (Manual) 0.0 K/mm3 (0.0-0.1) 11/10/16 04:38 Metamyelocytes # 0.0 K/mm3 11/10/16 04:38 Myelocytes # 0.0 K/mm3 11/10/16 04:38 Promyelocytes # 0.0 K/mm3 11/10/16 04:38 Blast Cells # 0.0 K/mm3 11/10/16 04:38 WBC Morphology Not Reportable 11/10/16 04:38 Hypersegmented Neuts Not Reportable 11/10/16 04:38 Hyposegmented Neuts Not Reportable 11/10/16 04:38 Hypogranular Neuts Not Reportable 11/10/16 04:38 Smudge Cells Not Reportable 11/10/16 04:38 Toxic Granulation Not Reportable 11/10/16 04:38 Toxic Vacuolation Not Reportable 11/10/16 04:38 Dohle Bodies Not Reportable 11/10/16 04:38 Pelger-Huet Anomaly Not Reportable 11/10/16 04:38 Aida Rods Not Reportable 11/10/16 04:38 Platelet Estimate Consistent w auto 11/10/16 04:38 Clumped Platelets Not Reportable 11/10/16 04:38 Plt Clumps, EDTA Not Reportable 11/10/16 04:38 Large Platelets Not Reportable 11/10/16 04:38 Giant Platelets Not Reportable 11/10/16 04:38 Platelet Satelliting Not Reportable 11/10/16 04:38 Plt Morphology Comment Not Reportable 11/10/16 04:38 RBC Morphology Not Reportable 11/10/16 04:38 Dimorphic RBCs Not Reportable 11/10/16 04:38 Polychromasia Not Reportable 11/10/16 04:38 Hypochromasia 1+ 11/10/16 04:38 Poikilocytosis Not Reportable 11/10/16 04:38 Anisocytosis 1+ 11/10/16 04:38 Microcytosis Not Reportable 11/10/16 04:38 Macrocytosis Not Reportable 11/10/16 04:38 Spherocytes Not Reportable 11/10/16 04:38 Pappenheimer Bodies Not Reportable 11/10/16 04:38 Sickle Cells Not Reportable 11/10/16 04:38 Target Cells Not Reportable 11/10/16 04:38 Tear Drop Cells Not Reportable 11/10/16 04:38 Ovalocytes Not Reportable 11/10/16 04:38 Helmet Cells Not Reportable 11/10/16 04:38 Munoz-[place] Bodies Not Reportable 11/10/16 04:38 [place] Rings Not Reportable 11/10/16 04:38 [place] Cells Not Reportable 11/10/16 04:38 Bite Cells Not Reportable 11/10/16 04:38 Crenated Cell Not Reportable 11/10/16 04:38 Elliptocytes Not Reportable 11/10/16 04:38 Acanthocytes (Spur) Not Reportable 11/10/16 04:38 Rouleaux Not Reportable 11/10/16 04:38 Hemoglobin C Crystals Not Reportable 11/10/16 04:38 Schistocytes Not Reportable 11/10/16 04:38 Malaria parasites Not Reportable 11/10/16 04:38 Jalil Bodies Not Reportable 11/10/16 04:38 Hem Pathologist Commnt No 11/10/16 04:38 POC ABG pH 7.488 (7.35-7.45) H 11/01/16 05:56 POC ABG pCO2 31.0 (35-45) L 11/01/16 05:56 POC ABG pO2 106 (80-105) H 11/01/16 05:56 POC ABG HCO3 23.5 11/01/16 05:56 POC ABG Total CO2 24 11/01/16 05:56 POC ABG O2 Sat 99 11/01/16 05:56 POC ABG Base Excess 0 11/01/16 05:56 FiO2 40 % 11/01/16 05:56 Sodium 133 mmol/L (137-145) L 11/10/16 04:38 Potassium 4.3 mmol/L (3.6-5.0) 11/10/16 04:38 Chloride 94.2 mmol/L (98-107) L 11/10/16 04:38 Carbon Dioxide 25 mmol/L (22-30) 11/10/16 04:38 Anion Gap 18 mmol/L 11/10/16 04:38 BUN 17 mg/dL (7-17) 11/10/16 04:38 Creatinine 4.5 mg/dL (0.7-1.2) H 11/10/16 04:38 Estimated GFR 11 ml/min 11/10/16 04:38 BUN/Creatinine Ratio 3.77 % 11/10/16 04:38 Glucose 117 mg/dL (65-100) H 11/10/16 04:38 POC Glucose 155 (70-105) H 11/10/16 07:23 Calcium 8.6 mg/dL (8.4-10.2) 11/10/16 04:38 Phosphorus 3.1 mg/dL (2.5-4.5) 11/02/16 04:36 Magnesium 1.7 mg/dL (1.7-2.3) 11/02/16 04:36 Total Bilirubin 0.6 mg/dL (0.1-1.2) 11/01/16 22:37 AST 44 units/L (5-40) H 11/01/16 22:37 ALT 18 units/L (7-56) 11/01/16 22:37 Alkaline Phosphatase 109 units/L (35-129) 11/01/16 22:37 Total Protein 7.2 g/dL (6.3-8.2) 11/01/16 22:37 Albumin 2.4 g/dL (3.9-5) L 11/01/16 22:37 Albumin/Globulin Ratio 0.5 % 11/01/16 22:37 Urine Color Yellow (Yellow) 10/30/16 00:30 Urine Turbidity Slightly-cloudy (Clear) 10/30/16 00:30 Urine pH 5.0 (5.0-7.0) 10/30/16 00:30 Ur Specific [place] 1.015 (1.003-1.030) 10/30/16 00:30 Urine Protein 100 mg/dl mg/dL (Negative) 10/30/16 00:30 Urine Glucose (UA) Neg mg/dL (Negative) 10/30/16 00:30 Urine Ketones Tr mg/dL (Negative) 10/30/16 00:30 Urine Blood Neg (Negative) 10/30/16 00:30 Urine Nitrite Neg (Negative) 10/30/16 00:30 Urine Bilirubin Neg (Negative) 10/30/16 00:30 Urine Urobilinogen < 2.0 mg/dL (<2.0) 10/30/16 00:30 Ur Leukocyte Esterase Neg (Negative) 10/30/16 00:30 Urine WBC (Auto) 10.0 /HPF (0.0-6.0) H 10/30/16 00:30 Urine RBC (Auto) 2.0 /HPF (0.0-6.0) 10/30/16 00:30 U Epithel Cells (Auto) 6.0 /HPF (0-13.0) 10/30/16 00:30 Amorphous Crystals 1+ 10/30/16 00:30 Hyaline Casts 16 /LPF 10/30/16 00:30 Granular Casts 4 /LPF 10/30/16 00:30 Urine Mucus Few /HPF 10/30/16 00:30 Random Vancomycin 19.6 ug/mL (0-40.0) 11/10/16 04:38 Blood Type B POSITIVE 10/31/16 17:38 Antibody Screen Negative 10/31/16 17:38
--- NOTE | 2016-11-10 15:16 | Progress Note ---
Assessment and Plan - Patient Problems (1) End-stage renal disease (ESRD) Current Visit: Yes Status: Chronic Plan to address problem: s/p temporary femoral vascath today, continue HD on M/W/F (2) Hypertensive chronic kidney disease with stage 5 chronic kidney disease or end stage renal disease Current Visit: Yes Status: Chronic Plan to address problem: BP currently well controlled. monitor on current meds (3) Anemia in chronic kidney disease Current Visit: No Status: Chronic Plan to address problem: continue EPO w/ HD, recommend 1 PRBC if Hb remains <7 (4) Chronic systolic heart failure Current Visit: No Status: Chronic Plan to address problem: pt currently compensated, will adjust UF as indicated (5) Diabetes mellitus type II, controlled Current Visit: No Status: Chronic Qualifiers: Diabetes mellitus complication status: with kidney complications Diabetes mellitus complication detail: D Diabetic retinopathy severity: D Diabetes mellitus macular edema: D Diabetes mellitus fpc insulin use: D Chronic kidney disease stage: on chronic dialysis Plan to address problem: glucose control as per primary attending (6) Acute cholecystitis Current Visit: Yes Status: Resolved Plan to address problem: s/p exlap/open cholecystectomy/colostomy. (7) MRSA bacteremia Current Visit: Yes Status: Acute Plan to address problem: repeat Bcx from 11/06 again showing MRSA, echo showed vegetation at the tip of permcath. S/p permcath removal, appreciate IR/ID consult, continue ABXs w/ vancomycin. consider RENETTA if BCx persistently positive. Subjective Date of service: 11/10/16 Principal diagnosis: Permacath related bacteremia Interval history: patient awake, alert, in NAD. S/p femoral vascath. Objective - Vital Signs Vital signs: Vital Signs - 12hr 11/10/16 11/10/16 11/10/16 06:00 08:12 10:30 Temperature 98.1 F 98.2 F 97.8 F Pulse Rate 77 Pulse Rate [ 89 Left Radial] Pulse Rate [ 91 H Right Radial] Respiratory 18 16 16 Rate Blood Pressure 140/77 Blood Pressure 131/60 [Left Arm] Blood Pressure 153/74 [Right Radial Artery] O2 Sat by Pulse 98 99 Oximetry 11/10/16 11/10/16 11/10/16 10:45 11:00 11:15 Temperature Pulse Rate 89 74 86 Pulse Rate [ Left Radial] Pulse Rate [ Right Radial] Respiratory Rate Blood Pressure 137/60 126/53 129/66 Blood Pressure [Left Arm] Blood Pressure [Right Radial Artery] O2 Sat by Pulse Oximetry 11/10/16 11/10/16 11/10/16 11:30 11:45 12:00 Temperature Pulse Rate 86 71 93 H Pulse Rate [ Left Radial] Pulse Rate [ Right Radial] Respiratory Rate Blood Pressure 120/65 124/51 111/60 Blood Pressure [Left Arm] Blood Pressure [Right Radial Artery] O2 Sat by Pulse Oximetry 11/10/16 11/10/16 11/10/16 12:15 12:30 12:45 Temperature Pulse Rate 96 H 95 H 77 Pulse Rate [ Left Radial] Pulse Rate [ Right Radial] Respiratory Rate Blood Pressure 110/60 117/68 126/60 Blood Pressure [Left Arm] Blood Pressure [Right Radial Artery] O2 Sat by Pulse Oximetry 11/10/16 14:10 Temperature 97.6 F Pulse Rate 60 Pulse Rate [ Left Radial] Pulse Rate [ Right Radial] Respiratory 16 Rate Blood Pressure 100/54 Blood Pressure [Left Arm] Blood Pressure [Right Radial Artery] O2 Sat by Pulse Oximetry - General Appearance General appearance: well-developed, well-nourished, appears stated age EENT: ATNC, PERRL, mucous membranes moist Neck: no JVD Respiratory: Present: Clear to Ascultation Cardiology: regular, S1S2 Gastrointestinal: normal, normoactive bowel sounds Integumentary: no rash, other (no edema, femoral vascath ) Neurologic: no focal deficit, alert and oriented x3, strength 5/5, CN 3-12 intact Psychiatric: mood/affect appropriate, cooperative - Lab 11/10/16 04:38 11/10/16 04:38 Most recent lab results Calcium 8.6 mg/dL (8.4-10.2) 11/10/16 04:38 Phosphorus 3.1 mg/dL (2.5-4.5) 11/02/16 04:36 Magnesium 1.7 mg/dL (1.7-2.3) 11/02/16 04:36
[2016-11-10] MEDS ORDERED: VANCOMYCIN/NS 1 GM/250 ML 1 GM/250 ML BAG IV ONE (18:00)
[2016-11-10] MEDS: MORPHINE IV PRN (21:54)
--- NOTE | 2016-11-10 23:35 | Echocardiography Report ---
INDICATION: The patient was brought to the Cardiology lab and 2D echocardiogram were obtained. FINDINGS: Technically satisfactory study. Left ventricular size is normal. Left ventricular systolic function is normal. Ejection fraction is about 55% to 60%. Mitral valve, anterior and posterior leaflets are well visualized. Mild thickening of the mitral leaflets is noted. Mild mitral regurgitation is present. Aortic valve is tricuspid. Mild aortic regurgitation is present. Mild tricuspid regurgitation is present. Small posterior pericardial effusion is present with no hemodynamic impact. Moderate pleural effusion is present. IMPRESSION: 1. Normal left ventricular systolic function with ejection fraction of 55% to 60%. 2. Mild mitral regurgitation. 3. Mild aortic regurgitation. 4. Mild tricuspid regurgitation. 5. Small pericardial effusion of no hemodynamic significance. 6. No evidence of vegetations. 7. Suggest clinical correlation. JOB# [id number] YAHIR/NTS
[2016-11-11 05:44] LABS: Basophils % (Auto) 0.7 % (0.0-1.8); Eosinophils % (Auto) 0.5 % (0.0-4.3); Hematocrit 22.7 % (30.3-42.9); Hemoglobin 6.9 gm/dl (10.1-14.3); Mean Corpuscular HGB Conc 30 % (30-34); Mean Corpuscular Volume 85 fl (79-97); Platelet Count 456 K/mm3 (140-440); Red Blood Count 2.67 M/mm3 (3.65-5.03)
[2016-11-11 05:47] LABS: Mean Corpuscular Hemoglobin 26 pg (28-32)
[2016-11-11 06:00] LABS: Calcium 8.2 mg/dL (8.4-10.2); Potassium 4.1 mmol/L (3.6-5.0)
--- NOTE | 2016-11-11 10:12 | Progress Note ---
Assessment and Plan Acute cholecystitis. Patient Is to be recovering normally MRSA bacteremia. No fever. On the surveillance for endocarditis, see prior notes Status post acute respiratory failure. No additional respiratory findings End-stage renal disease Recommendations Continue antibiotics as scheduled Continue incentive spirometer 4-6 hours Out of bed as tolerated DVT prophylaxis Watch for fever Discussed with patient. Aware of need to do incentive spirometry Subjective Date of service: 11/11/16 Principal diagnosis: Permacath related bacteremia Interval history: Reports no abdominal pain, no vomiting. No chest congestion or cough Objective Vital Signs - 12hr 11/11/16 11/11/16 11/11/16 01:05 04:05 09:22 Temperature 98.6 F 97.8 F 97.8 F Pulse Rate [ 92 H Left Radial] Pulse Rate [ 97 H 89 Right Radial] Respiratory 20 20 18 Rate Blood Pressure 115/58 128/60 128/58 [Right Radial Artery] O2 Sat by Pulse 98 100 100 Oximetry Constitutional: no acute distress, alert Eyes: non-icteric ENT: oropharynx moist Neck: supple Effort: normal Ascultation: Bilateral: clear Percussion: Bilateral: not dull Cardiovascular: regular rate and rhythm (no murmur noted) Gastrointestinal: normoactive bowel sounds, soft, non-tender, non-distended, other (no drainage) Extremities: no cyanosis, no edema, pink and warm Neurologic: normal mental status, non-focal exam, pupils equal and round, CN II- XII normal Psychiatric: mood appropriate, affect normal CBC and BMP: 11/11/16 04:36 11/11/16 04:36 ABG, PT/INR, D-dimer: ABG POC ABG pH 7.488 (7.35-7.45) H 11/01/16 05:56 POC ABG pCO2 31.0 (35-45) L 11/01/16 05:56 POC ABG pO2 106 (80-105) H 11/01/16 05:56 POC ABG HCO3 23.5 11/01/16 05:56 POC ABG Total CO2 24 11/01/16 05:56 POC ABG O2 Sat 99 11/01/16 05:56 Abnormal lab findings: Abnormal Labs 10/30/16 10/30/16 10/30/16 09:31 09:31 23:33 WBC 19.0 H RBC 3.11 L Hgb 7.9 L Hct 26.5 L MCH 25 L MCHC RDW 18.2 H Plt Count 460 H Lymph % (Auto) [place] % (Auto) [place] # Seg Neutrophils % Seg Neuts % (Manual) 87.0 H Lymphocytes % (Manual) 3.0 L Monocytes % (Manual) Seg Neutrophils # Seg Neutrophils # Man 16.5 H Lymphocytes # (Manual) 0.6 L Monocytes # (Manual) 1.0 H Basophils # (Manual) 0.2 H POC ABG pH POC ABG pCO2 POC ABG pO2 Sodium Potassium Chloride 97.4 L Carbon Dioxide BUN 61 H Creatinine 7.5 H Glucose 176 H POC Glucose 178 H Calcium 8.0 L AST Albumin 10/31/16 10/31/16 10/31/16 06:30 06:30 07:45 WBC 20.6 H RBC 3.25 L Hgb 8.2 L Hct 27.7 L MCH 25 L MCHC RDW 18.5 H Plt Count Lymph % (Auto) [place] % (Auto) [place] # Seg Neutrophils % Seg Neuts % (Manual) 90.0 H Lymphocytes % (Manual) 3.0 L Monocytes % (Manual) Seg Neutrophils # Seg Neutrophils # Man 18.5 H Lymphocytes # (Manual) 0.6 L Monocytes # (Manual) Basophils # (Manual) POC ABG pH POC ABG pCO2 POC ABG pO2 Sodium Potassium Chloride Carbon Dioxide BUN 32 H Creatinine 4.7 H Glucose 161 H POC Glucose 164 H Calcium 7.7 L AST Albumin 2.5 L 10/31/16 10/31/16 10/31/16 11:15 19:00 21:55 WBC RBC Hgb Hct MCH MCHC RDW Plt Count Lymph % (Auto) [place] % (Auto) [place] # Seg Neutrophils % Seg Neuts % (Manual) Lymphocytes % (Manual) Monocytes % (Manual) Seg Neutrophils # Seg Neutrophils # Man Lymphocytes # (Manual) Monocytes # (Manual) Basophils # (Manual) POC ABG pH 7.579 H POC ABG pCO2 29.6 L POC ABG pO2 304 H Sodium Potassium Chloride Carbon Dioxide BUN Creatinine Glucose POC Glucose 195 H 160 H Calcium AST Albumin 11/01/16 11/01/16 11/01/16 00:50 02:06 05:56 WBC RBC Hgb Hct MCH MCHC RDW Plt Count Lymph % (Auto) [place] % (Auto) [place] # Seg Neutrophils % Seg Neuts % (Manual) Lymphocytes % (Manual) Monocytes % (Manual) Seg Neutrophils # Seg Neutrophils # Man Lymphocytes # (Manual) Monocytes # (Manual) Basophils # (Manual) POC ABG pH 7.488 H POC ABG pCO2 31.0 L POC ABG pO2 106 H Sodium Potassium Chloride Carbon Dioxide 20 L BUN 45 H Creatinine 6.0 H Glucose 159 H POC Glucose 194 H Calcium 7.9 L AST Albumin 11/01/16 11/01/16 11/01/16 08:01 11:32 16:21 WBC RBC Hgb Hct MCH MCHC RDW Plt Count Lymph % (Auto) [place] % (Auto) [place] # Seg Neutrophils % Seg Neuts % (Manual) Lymphocytes % (Manual) Monocytes % (Manual) Seg Neutrophils # Seg Neutrophils # Man Lymphocytes # (Manual) Monocytes # (Manual) Basophils # (Manual) POC ABG pH POC ABG pCO2 POC ABG pO2 Sodium Potassium Chloride Carbon Dioxide BUN Creatinine Glucose POC Glucose 183 H 172 H 189 H Calcium AST Albumin 11/01/16 11/01/16 11/02/16 18:51 22:37 00:10 WBC 23.7 H RBC 3.24 L Hgb 8.3 L Hct 27.4 L MCH 26 L MCHC RDW 18.6 H Plt Count Lymph % (Auto) [place] % (Auto) [place] # Seg Neutrophils % Seg Neuts % (Manual) 91.0 H Lymphocytes % (Manual) 1.0 L Monocytes % (Manual) Seg Neutrophils # Seg Neutrophils # Man 21.6 H Lymphocytes # (Manual) 0.2 L Monocytes # (Manual) Basophils # (Manual) POC ABG pH POC ABG pCO2 POC ABG pO2 Sodium Potassium Chloride 96.9 L Carbon Dioxide BUN Creatinine 2.5 H D Glucose 141 H POC Glucose 162 H Calcium 8.2 L AST 44 H Albumin 2.4 L 11/02/16 11/02/16 11/02/16 04:36 04:36 07:46 WBC 23.3 H RBC 3.23 L Hgb 8.0 L Hct 27.6 L MCH 25 L MCHC 29 L RDW 18.6 H Plt Count Lymph % (Auto) [place] % (Auto) [place] # Seg Neutrophils % Seg Neuts % (Manual) Lymphocytes % (Manual) 6.0 L Monocytes % (Manual) Seg Neutrophils # Seg Neutrophils # Man 16.1 H Lymphocytes # (Manual) Monocytes # (Manual) 1.4 H Basophils # (Manual) POC ABG pH POC ABG pCO2 POC ABG pO2 Sodium Potassium 3.5 L Chloride 94.2 L Carbon Dioxide BUN 20 H Creatinine 2.8 H Glucose 136 H POC Glucose 154 H Calcium AST Albumin 11/02/16 11/02/16 11/03/16 11:58 15:33 00:23 WBC RBC Hgb Hct MCH MCHC RDW Plt Count Lymph % (Auto) [place] % (Auto) [place] # Seg Neutrophils % Seg Neuts % (Manual) Lymphocytes % (Manual) Monocytes % (Manual) Seg Neutrophils # Seg Neutrophils # Man Lymphocytes # (Manual) Monocytes # (Manual) Basophils # (Manual) POC ABG pH POC ABG pCO2 POC ABG pO2 Sodium Potassium Chloride Carbon Dioxide BUN Creatinine Glucose POC Glucose 163 H 147 H 134 H Calcium AST Albumin 11/03/16 11/04/16 11/04/16 07:19 00:06 07:50 WBC RBC Hgb Hct MCH MCHC RDW Plt Count Lymph % (Auto) [place] % (Auto) [place] # Seg Neutrophils % Seg Neuts % (Manual) Lymphocytes % (Manual) Monocytes % (Manual) Seg Neutrophils # Seg Neutrophils # Man Lymphocytes # (Manual) Monocytes # (Manual) Basophils # (Manual) POC ABG pH POC ABG pCO2 POC ABG pO2 Sodium Potassium Chloride Carbon Dioxide BUN Creatinine Glucose POC Glucose 113 H 161 H 198 H Calcium AST Albumin 11/04/16 11/04/16 11/04/16 11:11 16:07 21:50 WBC RBC Hgb Hct MCH MCHC RDW Plt Count Lymph % (Auto) [place] % (Auto) [place] # Seg Neutrophils % Seg Neuts % (Manual) Lymphocytes % (Manual) Monocytes % (Manual) Seg Neutrophils # Seg Neutrophils # Man Lymphocytes # (Manual) Monocytes # (Manual) Basophils # (Manual) POC ABG pH POC ABG pCO2 POC ABG pO2 Sodium Potassium Chloride Carbon Dioxide BUN Creatinine Glucose POC Glucose 205 H 251 H 136 H Calcium AST Albumin 11/05/16 11/05/16 11/05/16 03:18 03:18 07:14 WBC 22.1 H RBC 2.87 L Hgb 7.3 L Hct 26.2 L MCH 25 L MCHC 28 L RDW 19.3 H Plt Count Lymph % (Auto) [place] % (Auto) [place] # Seg Neutrophils % Seg Neuts % (Manual) Lymphocytes % (Manual) Monocytes % (Manual) Seg Neutrophils # Seg Neutrophils # Man Lymphocytes # (Manual) Monocytes # (Manual) Basophils # (Manual) POC ABG pH POC ABG pCO2 POC ABG pO2 Sodium 135 L Potassium Chloride 94.8 L Carbon Dioxide BUN 28 H Creatinine 4.5 H D Glucose 128 H POC Glucose 114 H Calcium AST Albumin 11/05/16 11/05/16 11/06/16 11:46 16:27 22:01 WBC RBC Hgb Hct MCH MCHC RDW Plt Count Lymph % (Auto) [place] % (Auto) [place] # Seg Neutrophils % Seg Neuts % (Manual) Lymphocytes % (Manual) Monocytes % (Manual) Seg Neutrophils # Seg Neutrophils # Man Lymphocytes # (Manual) Monocytes # (Manual) Basophils # (Manual) POC ABG pH POC ABG pCO2 POC ABG pO2 Sodium Potassium Chloride Carbon Dioxide BUN Creatinine Glucose POC Glucose 219 H 217 H 183 H Calcium AST Albumin 11/07/16 11/07/16 11/07/16 07:34 12:20 17:59 WBC RBC Hgb Hct MCH MCHC RDW Plt Count Lymph % (Auto) [place] % (Auto) [place] # Seg Neutrophils % Seg Neuts % (Manual) Lymphocytes % (Manual) Monocytes % (Manual) Seg Neutrophils # Seg Neutrophils # Man Lymphocytes # (Manual) Monocytes # (Manual) Basophils # (Manual) POC ABG pH POC ABG pCO2 POC ABG pO2 Sodium Potassium Chloride Carbon Dioxide BUN Creatinine Glucose POC Glucose 137 H 263 H 155 H Calcium AST Albumin 11/07/16 11/08/16 11/08/16 21:25 04:46 04:46 WBC 15.8 H RBC 2.70 L Hgb 7.1 L Hct 23.0 L MCH 26 L MCHC RDW 18.9 H Plt Count Lymph % (Auto) [place] % (Auto) [place] # Seg Neutrophils % Seg Neuts % (Manual) 83.0 H Lymphocytes % (Manual) 6.0 L Monocytes % (Manual) 8.0 H Seg Neutrophils # Seg Neutrophils # Man 13.1 H Lymphocytes # (Manual) 0.9 L Monocytes # (Manual) 1.3 H Basophils # (Manual) POC ABG pH POC ABG pCO2 POC ABG pO2 Sodium 132 L Potassium Chloride 93.0 L Carbon Dioxide BUN 22 H Creatinine 4.6 H Glucose POC Glucose 308 H Calcium AST Albumin 11/08/16 11/08/16 11/09/16 18:05 22:36 04:56 WBC 17.8 H RBC 2.64 L Hgb 6.9 L Hct 22.6 L MCH 26 L MCHC RDW 18.9 H Plt Count Lymph % (Auto) 8.9 L [place] % (Auto) 11.2 H [place] # 2.0 H Seg Neutrophils % 79.1 H Seg Neuts % (Manual) Lymphocytes % (Manual) Monocytes % (Manual) Seg Neutrophils # 14.1 H Seg Neutrophils # Man Lymphocytes # (Manual) Monocytes # (Manual) Basophils # (Manual) POC ABG pH POC ABG pCO2 POC ABG pO2 Sodium Potassium Chloride Carbon Dioxide BUN Creatinine Glucose POC Glucose 204 H 137 H Calcium AST Albumin 11/09/16 11/09/16 11/09/16 04:56 07:39 11:24 WBC RBC Hgb Hct MCH MCHC RDW Plt Count Lymph % (Auto) [place] % (Auto) [place] # Seg Neutrophils % Seg Neuts % (Manual) Lymphocytes % (Manual) Monocytes % (Manual) Seg Neutrophils # Seg Neutrophils # Man Lymphocytes # (Manual) Monocytes # (Manual) Basophils # (Manual) POC ABG pH POC ABG pCO2 POC ABG pO2 Sodium 132 L Potassium Chloride 94.0 L Carbon Dioxide BUN Creatinine 3.0 H Glucose 118 H POC Glucose 134 H 287 H Calcium AST Albumin 11/09/16 11/09/16 11/10/16 16:16 22:24 04:38 WBC 15.0 H RBC 2.80 L Hgb 7.3 L Hct 23.8 L MCH 26 L MCHC RDW 19.9 H Plt Count Lymph % (Auto) [place] % (Auto) [place] # Seg Neutrophils % Seg Neuts % (Manual) Lymphocytes % (Manual) 12.0 L Monocytes % (Manual) 13.0 H Seg Neutrophils # Seg Neutrophils # Man 10.2 H Lymphocytes # (Manual) Monocytes # (Manual) 2.0 H Basophils # (Manual) POC ABG pH POC ABG pCO2 POC ABG pO2 Sodium Potassium Chloride Carbon Dioxide BUN Creatinine Glucose POC Glucose 336 H 127 H Calcium AST Albumin 11/10/16 11/10/16 11/10/16 04:38 07:23 15:58 WBC RBC Hgb Hct MCH MCHC RDW Plt Count Lymph % (Auto) [place] % (Auto) [place] # Seg Neutrophils % Seg Neuts % (Manual) Lymphocytes % (Manual) Monocytes % (Manual) Seg Neutrophils # Seg Neutrophils # Man Lymphocytes # (Manual) Monocytes # (Manual) Basophils # (Manual) POC ABG pH POC ABG pCO2 POC ABG pO2 Sodium 133 L Potassium Chloride 94.2 L Carbon Dioxide BUN Creatinine 4.5 H Glucose 117 H POC Glucose 155 H 219 H Calcium AST Albumin 11/10/16 11/11/16 11/11/16 21:39 04:36 04:36 WBC 15.0 H RBC 2.67 L Hgb 6.9 L Hct 22.7 L MCH 26 L MCHC RDW 20.0 H Plt Count 456 H Lymph % (Auto) 8.6 L [place] % (Auto) 10.6 H [place] # 1.6 H Seg Neutrophils % 79.6 H Seg Neuts % (Manual) Lymphocytes % (Manual) Monocytes % (Manual) Seg Neutrophils # 12.0 H Seg Neutrophils # Man Lymphocytes # (Manual) Monocytes # (Manual) Basophils # (Manual) POC ABG pH POC ABG pCO2 POC ABG pO2 Sodium Potassium Chloride 96.0 L Carbon Dioxide BUN Creatinine 3.0 H Glucose 147 H POC Glucose 225 H Calcium 8.2 L AST Albumin
[2016-11-11] MEDS: LOVENOX SUB-Q SCH (11:36)
[2016-11-11] MEDS: NOVOLOG SUB-Q SCH ×4 (11:39→22:27)
--- NOTE | 2016-11-11 11:53 | Progress Note ---
Assessment and Plan Current antibiotics: Vancomycin IV (Pulse doses) 10/30, 11/07 --> Previous antibiotics: Zosyn 4.5 g IV q8h 10/30-10/31 Ceftriaxone 1 g IV q24h 10/30-10/31 Metronidazole 500 mg IV q8h 10/31-11/07 Levaquin 500 mg IV q24h 10/30-11/07 ASSESSMENT: Barbra Babin is an 85 y/o female who lives independently with HTN, type 2 DM, ESRD on maintenance HD, COPD, systolic heart failure (EF 45-50 percent), previous bowel perforation with colostomy (~ 6 years ago) who had been hospitalized at 10/21-10/24 with hypoglycemia. She had been hospitalized approximately 4 weeks earlier with worsening renal failure requiring initiation of HD (M-W-Fr) via a right chest wall PC ( inserted 10/04/16). She re- presents on 10/30 with abdominal and back pain and is found to have with non- visualization of the gallbladder on HIDA scan. 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 Cultures show MRSA bacteremia. Problem list: 1. MRSA bacteremia - 10/30:4/4 bottles + -11/06: 3/4 bottles + -Likely right chest wall permacath source. removed 11/08 -Repeat blood cultures on 11/08 NGTD -11/07 transthoracic echocardiogram showed vegetation versus fibrin sheath on the catheter 2. Biliary sepsis with acute cholecystitis - s/p open cholecystectomy - 10/31 3. Leukocytosis -2nd to above -Improving 4. ESRD -Maintenance HD -New Vas-Cath placed in right common femoral vein 11/10 5. Back pain -Etiology unclear - No specific complaints today of pain in the back 6. Anemia 7. Type 2 diabetes mellitus PLAN: 1. Continue vancomycin 2. Await finalization of repeat blood cultures from 11/08 3. If repeat blood cultures still positive will need RENETTA 4. If back pain persists or worsens a need workup for infection 5. Continued supportive measures Subjective Date of service: 11/11/16 Principal diagnosis: Permacath related bacteremia Interval history: Patient awake lying right lateral recumbent in bed since she has not had breakfast and doesn't feel well. RN reports patient is nothing by mouth at current time patient without obvious distress Objective - Exam Narrative Exam: GENERAL: Well-developed, thin female who is alert and in no acute distress. Appears somewhat chronically ill, lying right lateral recumbent HEAD: Normocephalic. No lesions seen. Mild by temporalis muscle wasting. EYES: Pupils are equal reactive to light and accommodation. There is no scleral icterus. Optic fundi are not examined. Bilateral arcus senilis. EARS: Normal external ears without external drainage THROAT: Oropharynx is normal with no evidence of oral candidiasis or pharyngitis. Poor dentition. NECK: Supple. No enlargement of the thyroid gland. No significant cervical lymphadenopathy. No jugular venous distention at 30. LUNGS: Clear with no adventitious sounds. CHEST: Right sided PermCath site with dressing in tact. HEART: Regular rate. S1 and S2 are normal. There are no murmurs, gallops, clicks or rubs heard. ABDOMEN: Soft with mild right upper quadrant tenderness without guarding or rebound. Liver and spleen are not palpably enlarged or tender. No palpable masses. Bowel sounds are normoactive. Colostomy in place with healthy mucosa and functioning normally. Right upper quadrant abdominal wound healing with no signs of infection. EXTREMITIES: No rash, peripheral lymphadenopathy, clubbing or edema. Right groin Vas-Cath with clean dressing noted. Mild tenderness over upper lumbar spine with no other objective abnormalities. NEUROLOGIC: No focal findings. - Constitutional Vitals: Vital Signs Temp Pulse Resp BP Pulse Ox 97.8 F 92 H 18 128/58 98 11/11/16 09:22 11/11/16 09:22 11/11/16 09:22 11/11/16 09:22 11/11/16 10:00 Temperature -Last 24 Hours Temperature 97.8 F Temperature 97.8 F Temperature 98.6 F Temperature 97.8 F Temperature 98.2 F Temperature 97.6 F - Labs CBC & Chem 7: 11/11/16 04:36 11/11/16 04:36 Labs: Abnormal lab results 11/10/16 11/10/16 11/11/16 Range/Units 15:58 21:39 04:36 WBC 15.0 H (4.5-11.0) K/mm3 RBC 2.67 L (3.65-5.03) M/mm3 Hgb 6.9 L (10.1-14.3) gm/dl Hct 22.7 L (30.3-42.9) % MCH 26 L (28-32) pg RDW 20.0 H (13.2-15.2) % Plt Count 456 H (140-440) K/mm3 Lymph % (Auto) 8.6 L (13.4-35.0) % [place] % (Auto) 10.6 H (0.0-7.3) % [place] # 1.6 H (0.0-0.8) K/mm3 Seg Neutrophils % 79.6 H (40.0-70.0) % Seg Neutrophils # 12.0 H (1.8-7.7) K/mm3 Chloride (98-107) mmol/L Creatinine (0.7-1.2) mg/dL Glucose (65-100) mg/dL POC Glucose 219 H 225 H (70-105) Calcium (8.4-10.2) mg/dL 11/11/16 Range/Units 04:36 WBC (4.5-11.0) K/mm3 RBC (3.65-5.03) M/mm3 Hgb (10.1-14.3) gm/dl Hct (30.3-42.9) % MCH (28-32) pg RDW (13.2-15.2) % Plt Count (140-440) K/mm3 Lymph % (Auto) (13.4-35.0) % [place] % (Auto) (0.0-7.3) % [place] # (0.0-0.8) K/mm3 Seg Neutrophils % (40.0-70.0) % Seg Neutrophils # (1.8-7.7) K/mm3 Chloride 96.0 L (98-107) mmol/L Creatinine 3.0 H (0.7-1.2) mg/dL Glucose 147 H (65-100) mg/dL POC Glucose (70-105) Calcium 8.2 L (8.4-10.2) mg/dL
--- NOTE | 2016-11-11 12:07 | Progress Note ---
Assessment and Plan - Patient Problems (1) End-stage renal disease (ESRD) Current Visit: Yes Status: Chronic Plan to address problem: s/p temporary femoral vascath on 11/10, continue HD on // (2) Hypertensive chronic kidney disease with stage 5 chronic kidney disease or end stage renal disease Current Visit: Yes Status: Chronic Plan to address problem: BP currently well controlled. monitor on current meds (3) Anemia in chronic kidney disease Current Visit: No Status: Chronic Plan to address problem: continue EPO w/ HD, recommend 1 PRBC if Hb remains <7 (4) Chronic systolic heart failure Current Visit: No Status: Chronic Plan to address problem: pt currently compensated, will adjust UF as indicated (5) Diabetes mellitus type II, controlled Current Visit: No Status: Chronic Qualifiers: Diabetes mellitus complication status: with kidney complications Diabetes mellitus complication detail: D Diabetic retinopathy severity: D Diabetes mellitus macular edema: D Diabetes mellitus long-term insulin use: D Chronic kidney disease stage: on chronic dialysis Plan to address problem: glucose control as per primary attending (6) Acute cholecystitis Current Visit: Yes Status: Resolved Plan to address problem: s/p exlap/open cholecystectomy/colostomy. (7) MRSA bacteremia Current Visit: Yes Status: Acute Plan to address problem: repeat Bcx from 11/06 again showing MRSA. S/p permcath removal, appreciate IR/ID consult, continue ABXs w/ vancomycin. Echo without vegetations. continue ABX as per ID Subjective Date of service: 11/11/16 Principal diagnosis: Permacath related bacteremia Interval history: patient awake, alert, in NAD Objective - Vital Signs Vital signs: Vital Signs - 12hr 11/11/16 11/11/16 11/11/16 01:05 04:05 09:22 Temperature 98.6 F 97.8 F 97.8 F Pulse Rate [ 92 H Left Radial] Pulse Rate [ 97 H 89 Right Radial] Respiratory 20 20 18 Rate Blood Pressure 115/58 128/60 128/58 [Right Radial Artery] O2 Sat by Pulse 98 100 100 Oximetry 11/11/16 10:00 Temperature Pulse Rate [ Left Radial] Pulse Rate [ Right Radial] Respiratory Rate Blood Pressure [Right Radial Artery] O2 Sat by Pulse 98 Oximetry - General Appearance General appearance: well-developed, appears stated age, chronically ill EENT: ATNC, PERRL, mucous membranes moist Neck: no JVD Respiratory: Present: Clear to Ascultation Cardiology: regular, S1S2 Gastrointestinal: normal, normoactive bowel sounds Integumentary: no rash, other (no edema ) Neurologic: no focal deficit, alert and oriented x3, strength 5/5, CN 3-12 intact Psychiatric: mood/affect appropriate, cooperative - Lab 11/11/16 04:36 11/11/16 04:36 Most recent lab results Calcium 8.2 mg/dL (8.4-10.2) L 11/11/16 04:36 Phosphorus 3.1 mg/dL (2.5-4.5) 11/02/16 04:36 Magnesium 1.7 mg/dL (1.7-2.3) 11/02/16 04:36
--- NOTE | 2016-11-11 16:23 | Progress Note ---
Assessment and Plan Assessment and plan: MRSA bacteremia - She is on IV vancomycin - Repeat blood cultures was positive for MRSA, and the one done yesterday the preliminary result is negative. - Another blood culture was taken from catheter tip - Vas-Cath was removed yesterday and femoral vasc cath was placed - Echocardiography was done and reading is dictated but not seen on the report - ID Consult appreciated - Contact precaution Cholecystitis s/p cholecystectomy -Abdominal pain is getting better End stage renal disease on hemodialysis - Femoral vasc cath was placed Hypertension - Controlled DM2 - Continue current management DVT prophylaxis - on lovenox Disposition - Continue inpatient care History Interval history: She was seen and evaluated this morning. She stated the back pain is getting better. She denied fevers but admitted for chills. Hospitalist Physical - Physical exam Narrative exam: Not in cardiopulmonary distress. The patient appeared well nourished and normally developed. Vital signs as documented. Head exam is unremarkable. No scleral icterus . Neck is without jugular venous distension, thyromegaly, or carotid bruits. Lungs are clear to auscultation. Cardiac exam reveals regular rate and Rhythm. First and second heart sounds normal. No murmurs, rubs or gallops. Abdominal has colostomy bag on the left lower abdomen. MISSIONARY COORDINATOR: Alert and oriented 3. No focal weakness. - Constitutional Vitals: Temp Pulse Resp BP Pulse Ox 97.8 F 92 H 18 128/58 98 11/11/16 09:22 11/11/16 09:22 11/11/16 10:00 11/11/16 09:22 11/11/16 10:00 General appearance: Present: no acute distress, well-nourished Results - Labs CBC & Chem 7: 11/11/16 04:36 11/11/16 04:36 Labs: Laboratory Last Values WBC 15.0 K/mm3 (4.5-11.0) H 11/11/16 04:36 RBC 2.67 M/mm3 (3.65-5.03) L 11/11/16 04:36 Hgb 6.9 gm/dl (10.1-14.3) L 11/11/16 04:36 Hct 22.7 % (30.3-42.9) L 11/11/16 04:36 MCV 85 fl (79-97) 11/11/16 04:36 MCH 26 pg (28-32) L 11/11/16 04:36 MCHC 30 % (30-34) 11/11/16 04:36 RDW 20.0 % (13.2-15.2) H 11/11/16 04:36 Plt Count 456 K/mm3 (140-440) H 11/11/16 04:36 Lymph % (Auto) 8.6 % (13.4-35.0) L 11/11/16 04:36 [place] % (Auto) 10.6 % (0.0-7.3) H 11/11/16 04:36 Eos % (Auto) 0.5 % (0.0-4.3) 11/11/16 04:36 Baso % (Auto) 0.7 % (0.0-1.8) 11/11/16 04:36 Lymph # 1.3 K/mm3 (1.2-5.4) 11/11/16 04:36 [place] # 1.6 K/mm3 (0.0-0.8) H 11/11/16 04:36 Eos # 0.1 K/mm3 (0.0-0.4) 11/11/16 04:36 Baso # 0.1 K/mm3 (0.0-0.1) 11/11/16 04:36 Add Manual Diff Complete 11/10/16 04:38 Total Counted 100 11/10/16 04:38 Seg Neutrophils % 79.6 % (40.0-70.0) H 11/11/16 04:36 Seg Neuts % (Manual) 68.0 % (40.0-70.0) 11/10/16 04:38 Band Neutrophils % 6.0 % 11/10/16 04:38 Lymphocytes % (Manual) 12.0 % (13.4-35.0) L 11/10/16 04:38 Reactive Lymphs % (Man) 0 % 11/10/16 04:38 Monocytes % (Manual) 13.0 % (0.0-7.3) H 11/10/16 04:38 Eosinophils % (Manual) 1.0 % (0.0-4.3) 11/10/16 04:38 Basophils % (Manual) 0 % (0.0-1.8) 11/08/16 04:46 Metamyelocytes % 0 % 11/10/16 04:38 Myelocytes % 0 % 11/10/16 04:38 Promyelocytes % 0 % 11/10/16 04:38 Blast Cells % 0 % 11/10/16 04:38 Nucleated RBC % Not Reportable 11/10/16 04:38 Seg Neutrophils # 12.0 K/mm3 (1.8-7.7) H 11/11/16 04:36 Seg Neutrophils # Man 10.2 K/mm3 (1.8-7.7) H 11/10/16 04:38 Band Neutrophils # 0.9 K/mm3 11/10/16 04:38 Lymphocytes # (Manual) 1.8 K/mm3 (1.2-5.4) 11/10/16 04:38 Abs React Lymphs (Man) 0.0 K/mm3 11/10/16 04:38 Monocytes # (Manual) 2.0 K/mm3 (0.0-0.8) H 11/10/16 04:38 Eosinophils # (Manual) 0.2 K/mm3 (0.0-0.4) 11/10/16 04:38 Basophils # (Manual) 0.0 K/mm3 (0.0-0.1) 11/10/16 04:38 Metamyelocytes # 0.0 K/mm3 11/10/16 04:38 Myelocytes # 0.0 K/mm3 11/10/16 04:38 Promyelocytes # 0.0 K/mm3 11/10/16 04:38 Blast Cells # 0.0 K/mm3 11/10/16 04:38 WBC Morphology Not Reportable 11/10/16 04:38 Hypersegmented Neuts Not Reportable 11/10/16 04:38 Hyposegmented Neuts Not Reportable 11/10/16 04:38 Hypogranular Neuts Not Reportable 11/10/16 04:38 Smudge Cells Not Reportable 11/10/16 04:38 Toxic Granulation Not Reportable 11/10/16 04:38 Toxic Vacuolation Not Reportable 11/10/16 04:38 Dohle Bodies Not Reportable 11/10/16 04:38 Pelger-Huet Anomaly Not Reportable 11/10/16 04:38 Aida Rods Not Reportable 11/10/16 04:38 Platelet Estimate Consistent w auto 11/10/16 04:38 Clumped Platelets Not Reportable 11/10/16 04:38 Plt Clumps, EDTA Not Reportable 11/10/16 04:38 Large Platelets Not Reportable 11/10/16 04:38 Giant Platelets Not Reportable 11/10/16 04:38 Platelet Satelliting Not Reportable 11/10/16 04:38 Plt Morphology Comment Not Reportable 11/10/16 04:38 RBC Morphology Not Reportable 11/10/16 04:38 Dimorphic RBCs Not Reportable 11/10/16 04:38 Polychromasia Not Reportable 11/10/16 04:38 Hypochromasia 1+ 11/10/16 04:38 Poikilocytosis Not Reportable 11/10/16 04:38 Anisocytosis 1+ 11/10/16 04:38 Microcytosis Not Reportable 11/10/16 04:38 Macrocytosis Not Reportable 11/10/16 04:38 Spherocytes Not Reportable 11/10/16 04:38 Pappenheimer Bodies Not Reportable 11/10/16 04:38 Sickle Cells Not Reportable 11/10/16 04:38 Target Cells Not Reportable 11/10/16 04:38 Tear Drop Cells Not Reportable 11/10/16 04:38 Ovalocytes Not Reportable 11/10/16 04:38 Helmet Cells Not Reportable 11/10/16 04:38 [place] Bodies Not Reportable 11/10/16 04:38 Caroleen Rings Not Reportable 11/10/16 04:38 [place] Cells Not Reportable 11/10/16 04:38 Bite Cells Not Reportable 11/10/16 04:38 Crenated Cell Not Reportable 11/10/16 04:38 Elliptocytes Not Reportable 11/10/16 04:38 Acanthocytes (Spur) Not Reportable 11/10/16 04:38 Rouleaux Not Reportable 11/10/16 04:38 Hemoglobin C Crystals Not Reportable 11/10/16 04:38 Schistocytes Not Reportable 11/10/16 04:38 Malaria parasites Not Reportable 11/10/16 04:38 Jalil Bodies Not Reportable 11/10/16 04:38 Hem Pathologist Commnt No 11/10/16 04:38 POC ABG pH 7.488 (7.35-7.45) H 11/01/16 05:56 POC ABG pCO2 31.0 (35-45) L 11/01/16 05:56 POC ABG pO2 106 (80-105) H 11/01/16 05:56 POC ABG HCO3 23.5 11/01/16 05:56 POC ABG Total CO2 24 11/01/16 05:56 POC ABG O2 Sat 99 11/01/16 05:56 POC ABG Base Excess 0 11/01/16 05:56 FiO2 40 % 11/01/16 05:56 Sodium 137 mmol/L (137-145) 11/11/16 04:36 Potassium 4.1 mmol/L (3.6-5.0) 11/11/16 04:36 Chloride 96.0 mmol/L (98-107) L 11/11/16 04:36 Carbon Dioxide 27 mmol/L (22-30) 11/11/16 04:36 Anion Gap 18 mmol/L 11/11/16 04:36 BUN 9 mg/dL (7-17) 11/11/16 04:36 Creatinine 3.0 mg/dL (0.7-1.2) H 11/11/16 04:36 Estimated GFR 18 ml/min 11/11/16 04:36 BUN/Creatinine Ratio 3.00 % 11/11/16 04:36 Glucose 147 mg/dL (65-100) H 11/11/16 04:36 POC Glucose 159 (70-105) H 11/11/16 11:50 Calcium 8.2 mg/dL (8.4-10.2) L 11/11/16 04:36 Phosphorus 3.1 mg/dL (2.5-4.5) 11/02/16 04:36 Magnesium 1.7 mg/dL (1.7-2.3) 11/02/16 04:36 Total Bilirubin 0.6 mg/dL (0.1-1.2) 11/01/16 22:37 AST 44 units/L (5-40) H 11/01/16 22:37 ALT 18 units/L (7-56) 11/01/16 22:37 Alkaline Phosphatase 109 units/L (35-129) 11/01/16 22:37 Total Protein 7.2 g/dL (6.3-8.2) 11/01/16 22:37 Albumin 2.4 g/dL (3.9-5) L 11/01/16 22:37 Albumin/Globulin Ratio 0.5 % 11/01/16 22:37 Urine Color Yellow (Yellow) 10/30/16 00:30 Urine Turbidity Slightly-cloudy (Clear) 10/30/16 00:30 Urine pH 5.0 (5.0-7.0) 10/30/16 00:30 Ur Specific [place] 1.015 (1.003-1.030) 10/30/16 00:30 Urine Protein 100 mg/dl mg/dL (Negative) 10/30/16 00:30 Urine Glucose (UA) Neg mg/dL (Negative) 10/30/16 00:30 Urine Ketones Tr mg/dL (Negative) 10/30/16 00:30 Urine Blood Neg (Negative) 10/30/16 00:30 Urine Nitrite Neg (Negative) 10/30/16 00:30 Urine Bilirubin Neg (Negative) 10/30/16 00:30 Urine Urobilinogen < 2.0 mg/dL (<2.0) 10/30/16 00:30 Ur Leukocyte Esterase Neg (Negative) 10/30/16 00:30 Urine WBC (Auto) 10.0 /HPF (0.0-6.0) H 10/30/16 00:30 Urine RBC (Auto) 2.0 /HPF (0.0-6.0) 10/30/16 00:30 U Epithel Cells (Auto) 6.0 /HPF (0-13.0) 10/30/16 00:30 Amorphous Crystals 1+ 10/30/16 00:30 Hyaline Casts 16 /LPF 10/30/16 00:30 Granular Casts 4 /LPF 10/30/16 00:30 Urine Mucus Few /HPF 10/30/16 00:30 Random Vancomycin 19.6 ug/mL (0-40.0) 11/10/16 04:38 Blood Type B POSITIVE 10/31/16 17:38 Antibody Screen Negative 10/31/16 17:38
[2016-11-11] MEDS: PROTONIX PO SCH (17:00)
[2016-11-11] MEDS: COREG PO SCH ×2 (17:03→22:27)
[2016-11-11] MEDS ORDERED: NACL 0.9% 250ML 0 ML ONE (20:05)
[2016-11-11] MEDS ORDERED: NACL 0.9% 250ML 250 ML IV ONE (20:09)
[2016-11-11] MEDS: MORPHINE IV PRN (20:20)
[2016-11-11] MEDS: KCL 10MEQ/100ML 10 MEQ/100 ML BAG IV SCH (21:03)
[2016-11-12] MEDS: MORPHINE IV PRN ×3 (04:51→23:06)
[2016-11-12 06:55] LABS: BUN/Creatinine Ratio 5.09; Calcium 8.3 mg/dL (8.4-10.2); Chloride 93.8 mmol/L (98-107); Potassium 4.3 mmol/L (3.6-5.0)
[2016-11-12 07:25] LABS: Hematocrit 22.7 % (30.3-42.9); Hemoglobin 6.7 gm/dl (10.1-14.3); Mean Corpuscular HGB Conc 30 % (30-34); Mean Corpuscular Volume 87 fl (79-97); Platelet Count 514 K/mm3 (140-440); White Blood Count 18.5 K/mm3 (4.5-11.0)
[2016-11-12 07:48] LABS: Mean Corpuscular Hemoglobin 26 pg (28-32)
[2016-11-12] MEDS: NOVOLOG SUB-Q SCH ×4 (08:32→23:06)
[2016-11-12] MEDS ORDERED: NACL 0.9% 500 ML 500 ML IV ONE (09:57)
--- NOTE | 2016-11-12 09:59 | Progress Note ---
Assessment and Plan - Patient Problems (1) End-stage renal disease (ESRD) Current Visit: Yes Status: Chronic Plan to address problem: s/p temporary femoral vascath on 11/10, continue HD on //. repeat BCx from 11/09 NGTD, permcath as per vascular surgery if BCx remains negative. (2) Hypertensive chronic kidney disease with stage 5 chronic kidney disease or end stage renal disease Current Visit: Yes Status: Chronic Plan to address problem: BP currently well controlled. monitor on current meds (3) Anemia in chronic kidney disease Current Visit: No Status: Chronic Plan to address problem: continue EPO w/ HD, will transfuse 1 PRBC since Hb trending down to 6.7 (4) Chronic systolic heart failure Current Visit: No Status: Chronic Plan to address problem: pt currently compensated, will adjust UF as indicated (5) Diabetes mellitus type II, controlled Current Visit: No Status: Chronic Qualifiers: Diabetes mellitus complication status: with kidney complications Diabetes mellitus complication detail: D Diabetic retinopathy severity: D Diabetes mellitus macular edema: D Diabetes mellitus skilled nursing insulin use: D Chronic kidney disease stage: on chronic dialysis Plan to address problem: glucose control as per primary attending (6) Acute cholecystitis Current Visit: Yes Status: Resolved Plan to address problem: s/p exlap/open cholecystectomy/colostomy. (7) MRSA bacteremia Current Visit: Yes Status: Acute Plan to address problem: repeat Bcx NGTD. S/p permcath removal, replace permcath if BCxs remain negative. appreciate IR/ID consult, continue ABX as per ID Subjective Date of service: 11/12/16 Principal diagnosis: Permacath related bacteremia Interval history: patient awake, alert, in NAD, denies fever, chills, N/v/d Objective - Vital Signs Vital signs: Vital Signs - 12hr 11/12/16 11/12/16 11/12/16 00:23 01:20 04:31 Temperature 97.9 F 98.6 F Pulse Rate 114 H Pulse Rate [ Left Radial] Pulse Rate [ 104 H 97 H Right Radial] Respiratory 20 20 Rate Blood Pressure 116/55 120/56 [Right Radial Artery] O2 Sat by Pulse 97 95 Oximetry 11/12/16 09:12 Temperature 98.2 F Pulse Rate Pulse Rate [ 95 H Left Radial] Pulse Rate [ Right Radial] Respiratory 16 Rate Blood Pressure 114/59 [Right Radial Artery] O2 Sat by Pulse 97 Oximetry - General Appearance General appearance: well-developed, appears stated age, chronically ill EENT: ATNC, PERRL, mucous membranes moist Neck: no JVD Respiratory: Present: Clear to Ascultation Cardiology: regular, S1S2 Gastrointestinal: normal, normoactive bowel sounds Integumentary: no rash, other (femoral vascath ) Neurologic: no focal deficit, alert and oriented x3, strength 5/5, CN 3-12 intact Psychiatric: mood/affect appropriate, cooperative - Lab 11/12/16 05:38 11/12/16 05:38 Most recent lab results Calcium 8.3 mg/dL (8.4-10.2) L 11/12/16 05:38 Phosphorus 3.1 mg/dL (2.5-4.5) 11/02/16 04:36 Magnesium 1.7 mg/dL (1.7-2.3) 11/02/16 04:36
--- NOTE | 2016-11-12 11:12 | Progress Note ---
Assessment and Plan Acute cholecystitis. Some abdominal discomfort. No vomiting MRSA bacteremia. No fever. Completing antibiotics Status post acute respiratory failure. No additional respiratory findings End-stage renal disease. Nephrology following Anemia. If persistent below 7 g will benefit for 1 PRBC transfusion Recommendations Continue antibiotics as scheduled Monitor abdominal pain Incentive spirometry 4-6 hours Out of bed as tolerated DVT prophylaxis Watch for fever Discussed with patient. Subjective Date of service: 11/12/16 Principal diagnosis: Permacath related bacteremia Interval history: The patient complains of epigastric abdominal pain this morning. No vomiting. No chest congestion or cough. No fever reported Objective Vital Signs - 12hr 11/12/16 11/12/16 11/12/16 00:23 01:20 04:31 Temperature 97.9 F 98.6 F Pulse Rate 114 H Pulse Rate [ Left Radial] Pulse Rate [ 104 H 97 H Right Radial] Respiratory 20 20 Rate Blood Pressure 116/55 120/56 [Right Radial Artery] O2 Sat by Pulse 97 95 Oximetry 11/12/16 09:12 Temperature 98.2 F Pulse Rate Pulse Rate [ 95 H Left Radial] Pulse Rate [ Right Radial] Respiratory 16 Rate Blood Pressure 114/59 [Right Radial Artery] O2 Sat by Pulse 97 Oximetry Constitutional: no acute distress, alert Eyes: non-icteric ENT: oropharynx moist Neck: supple Effort: normal Ascultation: Bilateral: clear Percussion: Bilateral: not dull Cardiovascular: regular rate and rhythm (no murmur noted) Gastrointestinal: normoactive bowel sounds, soft, non-distended, other (mild epigastric tenderness) Extremities: no cyanosis, no edema, pink and warm Neurologic: normal mental status, non-focal exam, pupils equal and round, CN II- XII normal Psychiatric: mood appropriate, affect normal CBC and BMP: 11/12/16 05:38 11/12/16 05:38 ABG, PT/INR, D-dimer: ABG POC ABG pH 7.488 (7.35-7.45) H 11/01/16 05:56 POC ABG pCO2 31.0 (35-45) L 11/01/16 05:56 POC ABG pO2 106 (80-105) H 11/01/16 05:56 POC ABG HCO3 23.5 11/01/16 05:56 POC ABG Total CO2 24 11/01/16 05:56 POC ABG O2 Sat 99 11/01/16 05:56 Abnormal lab findings: Abnormal Labs 10/30/16 10/30/16 10/30/16 09:31 09:31 23:33 WBC 19.0 H RBC 3.11 L Hgb 7.9 L Hct 26.5 L MCH 25 L MCHC RDW 18.2 H Plt Count 460 H Lymph % (Auto) [place] % (Auto) [place] # Seg Neutrophils % Seg Neuts % (Manual) 87.0 H Lymphocytes % (Manual) 3.0 L Monocytes % (Manual) Seg Neutrophils # Seg Neutrophils # Man 16.5 H Lymphocytes # (Manual) 0.6 L Monocytes # (Manual) 1.0 H Basophils # (Manual) 0.2 H POC ABG pH POC ABG pCO2 POC ABG pO2 Sodium Potassium Chloride 97.4 L Carbon Dioxide BUN 61 H Creatinine 7.5 H Glucose 176 H POC Glucose 178 H Calcium 8.0 L AST Albumin 10/31/16 10/31/16 10/31/16 06:30 06:30 07:45 WBC 20.6 H RBC 3.25 L Hgb 8.2 L Hct 27.7 L MCH 25 L MCHC RDW 18.5 H Plt Count Lymph % (Auto) [place] % (Auto) [place] # Seg Neutrophils % Seg Neuts % (Manual) 90.0 H Lymphocytes % (Manual) 3.0 L Monocytes % (Manual) Seg Neutrophils # Seg Neutrophils # Man 18.5 H Lymphocytes # (Manual) 0.6 L Monocytes # (Manual) Basophils # (Manual) POC ABG pH POC ABG pCO2 POC ABG pO2 Sodium Potassium Chloride Carbon Dioxide BUN 32 H Creatinine 4.7 H Glucose 161 H POC Glucose 164 H Calcium 7.7 L AST Albumin 2.5 L 10/31/16 10/31/16 10/31/16 11:15 19:00 21:55 WBC RBC Hgb Hct MCH MCHC RDW Plt Count Lymph % (Auto) [place] % (Auto) [place] # Seg Neutrophils % Seg Neuts % (Manual) Lymphocytes % (Manual) Monocytes % (Manual) Seg Neutrophils # Seg Neutrophils # Man Lymphocytes # (Manual) Monocytes # (Manual) Basophils # (Manual) POC ABG pH 7.579 H POC ABG pCO2 29.6 L POC ABG pO2 304 H Sodium Potassium Chloride Carbon Dioxide BUN Creatinine Glucose POC Glucose 195 H 160 H Calcium AST Albumin 11/01/16 11/01/16 11/01/16 00:50 02:06 05:56 WBC RBC Hgb Hct MCH MCHC RDW Plt Count Lymph % (Auto) [place] % (Auto) [place] # Seg Neutrophils % Seg Neuts % (Manual) Lymphocytes % (Manual) Monocytes % (Manual) Seg Neutrophils # Seg Neutrophils # Man Lymphocytes # (Manual) Monocytes # (Manual) Basophils # (Manual) POC ABG pH 7.488 H POC ABG pCO2 31.0 L POC ABG pO2 106 H Sodium Potassium Chloride Carbon Dioxide 20 L BUN 45 H Creatinine 6.0 H Glucose 159 H POC Glucose 194 H Calcium 7.9 L AST Albumin 11/01/16 11/01/16 11/01/16 08:01 11:32 16:21 WBC RBC Hgb Hct MCH MCHC RDW Plt Count Lymph % (Auto) [place] % (Auto) [place] # Seg Neutrophils % Seg Neuts % (Manual) Lymphocytes % (Manual) Monocytes % (Manual) Seg Neutrophils # Seg Neutrophils # Man Lymphocytes # (Manual) Monocytes # (Manual) Basophils # (Manual) POC ABG pH POC ABG pCO2 POC ABG pO2 Sodium Potassium Chloride Carbon Dioxide BUN Creatinine Glucose POC Glucose 183 H 172 H 189 H Calcium AST Albumin 11/01/16 11/01/16 11/02/16 18:51 22:37 00:10 WBC 23.7 H RBC 3.24 L Hgb 8.3 L Hct 27.4 L MCH 26 L MCHC RDW 18.6 H Plt Count Lymph % (Auto) [place] % (Auto) [place] # Seg Neutrophils % Seg Neuts % (Manual) 91.0 H Lymphocytes % (Manual) 1.0 L Monocytes % (Manual) Seg Neutrophils # Seg Neutrophils # Man 21.6 H Lymphocytes # (Manual) 0.2 L Monocytes # (Manual) Basophils # (Manual) POC ABG pH POC ABG pCO2 POC ABG pO2 Sodium Potassium Chloride 96.9 L Carbon Dioxide BUN Creatinine 2.5 H D Glucose 141 H POC Glucose 162 H Calcium 8.2 L AST 44 H Albumin 2.4 L 11/02/16 11/02/16 11/02/16 04:36 04:36 07:46 WBC 23.3 H RBC 3.23 L Hgb 8.0 L Hct 27.6 L MCH 25 L MCHC 29 L RDW 18.6 H Plt Count Lymph % (Auto) [place] % (Auto) [place] # Seg Neutrophils % Seg Neuts % (Manual) Lymphocytes % (Manual) 6.0 L Monocytes % (Manual) Seg Neutrophils # Seg Neutrophils # Man 16.1 H Lymphocytes # (Manual) Monocytes # (Manual) 1.4 H Basophils # (Manual) POC ABG pH POC ABG pCO2 POC ABG pO2 Sodium Potassium 3.5 L Chloride 94.2 L Carbon Dioxide BUN 20 H Creatinine 2.8 H Glucose 136 H POC Glucose 154 H Calcium AST Albumin 11/02/16 11/02/16 11/03/16 11:58 15:33 00:23 WBC RBC Hgb Hct MCH MCHC RDW Plt Count Lymph % (Auto) [place] % (Auto) [place] # Seg Neutrophils % Seg Neuts % (Manual) Lymphocytes % (Manual) Monocytes % (Manual) Seg Neutrophils # Seg Neutrophils # Man Lymphocytes # (Manual) Monocytes # (Manual) Basophils # (Manual) POC ABG pH POC ABG pCO2 POC ABG pO2 Sodium Potassium Chloride Carbon Dioxide BUN Creatinine Glucose POC Glucose 163 H 147 H 134 H Calcium AST Albumin 11/03/16 11/04/16 11/04/16 07:19 00:06 07:50 WBC RBC Hgb Hct MCH MCHC RDW Plt Count Lymph % (Auto) [place] % (Auto) [place] # Seg Neutrophils % Seg Neuts % (Manual) Lymphocytes % (Manual) Monocytes % (Manual) Seg Neutrophils # Seg Neutrophils # Man Lymphocytes # (Manual) Monocytes # (Manual) Basophils # (Manual) POC ABG pH POC ABG pCO2 POC ABG pO2 Sodium Potassium Chloride Carbon Dioxide BUN Creatinine Glucose POC Glucose 113 H 161 H 198 H Calcium AST Albumin 11/04/16 11/04/16 11/04/16 11:11 16:07 21:50 WBC RBC Hgb Hct MCH MCHC RDW Plt Count Lymph % (Auto) [place] % (Auto) [place] # Seg Neutrophils % Seg Neuts % (Manual) Lymphocytes % (Manual) Monocytes % (Manual) Seg Neutrophils # Seg Neutrophils # Man Lymphocytes # (Manual) Monocytes # (Manual) Basophils # (Manual) POC ABG pH POC ABG pCO2 POC ABG pO2 Sodium Potassium Chloride Carbon Dioxide BUN Creatinine Glucose POC Glucose 205 H 251 H 136 H Calcium AST Albumin 11/05/16 11/05/16 11/05/16 03:18 03:18 07:14 WBC 22.1 H RBC 2.87 L Hgb 7.3 L Hct 26.2 L MCH 25 L MCHC 28 L RDW 19.3 H Plt Count Lymph % (Auto) [place] % (Auto) [place] # Seg Neutrophils % Seg Neuts % (Manual) Lymphocytes % (Manual) Monocytes % (Manual) Seg Neutrophils # Seg Neutrophils # Man Lymphocytes # (Manual) Monocytes # (Manual) Basophils # (Manual) POC ABG pH POC ABG pCO2 POC ABG pO2 Sodium 135 L Potassium Chloride 94.8 L Carbon Dioxide BUN 28 H Creatinine 4.5 H D Glucose 128 H POC Glucose 114 H Calcium AST Albumin 11/05/16 11/05/16 11/06/16 11:46 16:27 22:01 WBC RBC Hgb Hct MCH MCHC RDW Plt Count Lymph % (Auto) [place] % (Auto) [place] # Seg Neutrophils % Seg Neuts % (Manual) Lymphocytes % (Manual) Monocytes % (Manual) Seg Neutrophils # Seg Neutrophils # Man Lymphocytes # (Manual) Monocytes # (Manual) Basophils # (Manual) POC ABG pH POC ABG pCO2 POC ABG pO2 Sodium Potassium Chloride Carbon Dioxide BUN Creatinine Glucose POC Glucose 219 H 217 H 183 H Calcium AST Albumin 11/07/16 11/07/16 11/07/16 07:34 12:20 17:59 WBC RBC Hgb Hct MCH MCHC RDW Plt Count Lymph % (Auto) [place] % (Auto) [place] # Seg Neutrophils % Seg Neuts % (Manual) Lymphocytes % (Manual) Monocytes % (Manual) Seg Neutrophils # Seg Neutrophils # Man Lymphocytes # (Manual) Monocytes # (Manual) Basophils # (Manual) POC ABG pH POC ABG pCO2 POC ABG pO2 Sodium Potassium Chloride Carbon Dioxide BUN Creatinine Glucose POC Glucose 137 H 263 H 155 H Calcium AST Albumin 11/07/16 11/08/16 11/08/16 21:25 04:46 04:46 WBC 15.8 H RBC 2.70 L Hgb 7.1 L Hct 23.0 L MCH 26 L MCHC RDW 18.9 H Plt Count Lymph % (Auto) [place] % (Auto) [place] # Seg Neutrophils % Seg Neuts % (Manual) 83.0 H Lymphocytes % (Manual) 6.0 L Monocytes % (Manual) 8.0 H Seg Neutrophils # Seg Neutrophils # Man 13.1 H Lymphocytes # (Manual) 0.9 L Monocytes # (Manual) 1.3 H Basophils # (Manual) POC ABG pH POC ABG pCO2 POC ABG pO2 Sodium 132 L Potassium Chloride 93.0 L Carbon Dioxide BUN 22 H Creatinine 4.6 H Glucose POC Glucose 308 H Calcium AST Albumin 11/08/16 11/08/16 11/09/16 18:05 22:36 04:56 WBC 17.8 H RBC 2.64 L Hgb 6.9 L Hct 22.6 L MCH 26 L MCHC RDW 18.9 H Plt Count Lymph % (Auto) 8.9 L [place] % (Auto) 11.2 H [place] # 2.0 H Seg Neutrophils % 79.1 H Seg Neuts % (Manual) Lymphocytes % (Manual) Monocytes % (Manual) Seg Neutrophils # 14.1 H Seg Neutrophils # Man Lymphocytes # (Manual) Monocytes # (Manual) Basophils # (Manual) POC ABG pH POC ABG pCO2 POC ABG pO2 Sodium Potassium Chloride Carbon Dioxide BUN Creatinine Glucose POC Glucose 204 H 137 H Calcium AST Albumin 11/09/16 11/09/16 11/09/16 04:56 07:39 11:24 WBC RBC Hgb Hct MCH MCHC RDW Plt Count Lymph % (Auto) [place] % (Auto) [place] # Seg Neutrophils % Seg Neuts % (Manual) Lymphocytes % (Manual) Monocytes % (Manual) Seg Neutrophils # Seg Neutrophils # Man Lymphocytes # (Manual) Monocytes # (Manual) Basophils # (Manual) POC ABG pH POC ABG pCO2 POC ABG pO2 Sodium 132 L Potassium Chloride 94.0 L Carbon Dioxide BUN Creatinine 3.0 H Glucose 118 H POC Glucose 134 H 287 H Calcium AST Albumin 11/09/16 11/09/16 11/10/16 16:16 22:24 04:38 WBC 15.0 H RBC 2.80 L Hgb 7.3 L Hct 23.8 L MCH 26 L MCHC RDW 19.9 H Plt Count Lymph % (Auto) [place] % (Auto) [place] # Seg Neutrophils % Seg Neuts % (Manual) Lymphocytes % (Manual) 12.0 L Monocytes % (Manual) 13.0 H Seg Neutrophils # Seg Neutrophils # Man 10.2 H Lymphocytes # (Manual) Monocytes # (Manual) 2.0 H Basophils # (Manual) POC ABG pH POC ABG pCO2 POC ABG pO2 Sodium Potassium Chloride Carbon Dioxide BUN Creatinine Glucose POC Glucose 336 H 127 H Calcium AST Albumin 02/07/1711/10/16 11/10/16 04:38 07:23 15:58 WBC RBC Hgb Hct MCH MCHC RDW Plt Count Lymph % (Auto) [place] % (Auto) [place] # Seg Neutrophils % Seg Neuts % (Manual) Lymphocytes % (Manual) Monocytes % (Manual) Seg Neutrophils # Seg Neutrophils # Man Lymphocytes # (Manual) Monocytes # (Manual) Basophils # (Manual) POC ABG pH POC ABG pCO2 POC ABG pO2 Sodium 133 L Potassium Chloride 94.2 L Carbon Dioxide BUN Creatinine 4.5 H Glucose 117 H POC Glucose 155 H 219 H Calcium AST Albumin 11/10/16 11/11/16 11/11/16 21:39 04:36 04:36 WBC 15.0 H RBC 2.67 L Hgb 6.9 L Hct 22.7 L MCH 26 L MCHC RDW 20.0 H Plt Count 456 H Lymph % (Auto) 8.6 L [place] % (Auto) 10.6 H [place] # 1.6 H Seg Neutrophils % 79.6 H Seg Neuts % (Manual) Lymphocytes % (Manual) Monocytes % (Manual) Seg Neutrophils # 12.0 H Seg Neutrophils # Man Lymphocytes # (Manual) Monocytes # (Manual) Basophils # (Manual) POC ABG pH POC ABG pCO2 POC ABG pO2 Sodium Potassium Chloride 96.0 L Carbon Dioxide BUN Creatinine 3.0 H Glucose 147 H POC Glucose 225 H Calcium 8.2 L AST Albumin 11/11/16 11/11/16 11/11/16 07:50 11:50 16:41 WBC RBC Hgb Hct MCH MCHC RDW Plt Count Lymph % (Auto) [place] % (Auto) [place] # Seg Neutrophils % Seg Neuts % (Manual) Lymphocytes % (Manual) Monocytes % (Manual) Seg Neutrophils # Seg Neutrophils # Man Lymphocytes # (Manual) Monocytes # (Manual) Basophils # (Manual) POC ABG pH POC ABG pCO2 POC ABG pO2 Sodium Potassium Chloride Carbon Dioxide BUN Creatinine Glucose POC Glucose 160 H 159 H 288 H Calcium AST Albumin 11/11/16 11/12/16 11/12/16 21:46 05:38 05:38 WBC 18.5 H RBC 2.60 L Hgb 6.7 L Hct 22.7 L MCH 26 L MCHC RDW 21.0 H Plt Count 514 H Lymph % (Auto) [place] % (Auto) [place] # Seg Neutrophils % Seg Neuts % (Manual) Lymphocytes % (Manual) Monocytes % (Manual) Seg Neutrophils # Seg Neutrophils # Man Lymphocytes # (Manual) Monocytes # (Manual) Basophils # (Manual) POC ABG pH POC ABG pCO2 POC ABG pO2 Sodium 132 L Potassium Chloride 93.8 L Carbon Dioxide BUN 26 H Creatinine 5.1 H D Glucose 117 H POC Glucose 367 H Calcium 8.3 L AST Albumin
[2016-11-12] MEDS: COREG PO SCH ×2 (11:33→23:06)
[2016-11-12] MEDS: PROTONIX PO SCH (11:34)
[2016-11-12] MEDS: LOVENOX SUB-Q SCH (11:34)
--- NOTE | 2016-11-12 12:14 | Cat Scan Report ---
CT ABDOMEN AND PELVIS WITHOUT CONTRAST: 10/30/16 02:48:00 CLINICAL:Right-sided abdominal pain. COMPARISON: 10/29/16 TECHNIQUE: Volumetric acquisition and 1.25 millimeter scan reconstructions from the lung bases through the iliac crest. The study was performed without oral contrast. FINDINGS: Abdomen:Interval development of bilateral partial lower lobe atelectasis and a small left pleural effusion. A large pericardial effusion has developed to prior exam. Normal liver and bile ducts status post cholecystectomy. Normal stomach, duodenum and spleen. The pancreas is atrophic and unchanged compared to the prior exam. Stable peripancreatic stranding and no peripancreatic fluid. Physiologic distention of the renal collecting systems. No urinary calculus, mass or cysts. IVC filter. A right femoral venous line has been inserted and extends to the level of the IVC filter. Calcification and ectasia of the aorta and iliac arteries. No ascites and no pneumoperitoneum. 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 No dilated small or large bowel. Pelvis: Normal urinary bladder. The rectum and rectal pouch are normal. Normal uterus. Ovaries are not identified. No adnexal mass or free fluid. The sigmoid colon IMPRESSION: 1. No urinary calculus. 2. No hydronephrosis or hydroureter. 3. Status post cholecystectomy since the last exam. 4. Pancreatic atrophy but no signs of acute or chronic pancreatitis. 5. 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
--- NOTE | 2016-11-12 12:30 | Progress Note ---
Assessment and Plan Current antibiotics: Vancomycin IV (Pulse doses) 10/30, 11/07 --> Previous antibiotics: Zosyn 4.5 g IV q8h 10/30-10/31 Ceftriaxone 1 g IV q24h 10/30-10/31 Metronidazole 500 mg IV q8h 10/31-11/07 Levaquin 500 mg IV q24h 10/30-11/07 ASSESSMENT: Barbra Babin is an 85 y/o female who lives independently with HTN, type 2 DM, ESRD on maintenance HD, COPD, systolic heart failure (EF 45-50 percent), previous bowel perforation with colostomy (~ 6 years ago) who had been hospitalized at 10/21-10/24 with hypoglycemia. She had been hospitalized approximately 4 weeks earlier with worsening renal failure requiring initiation of HD (M-W-Fr) via a right chest wall PC ( inserted 10/04/16). She re- presents on 10/30 with abdominal and back pain and is found to have with non- visualization of the gallbladder on HIDA scan. 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 Cultures show MRSA bacteremia. Problem list: 1. MRSA bacteremia - Prolonged - 10/30:4/4 bottles + -11/06: 3/4 bottles + -Likely right chest wall permacath source. removed 11/08 -Repeat blood cultures on 11/08 with MRSA -cath. tip 11/08 with <15col. S.aureus -11/07 transthoracic echocardiogram showed vegetation versus fibrin sheath on the catheter -11/09 blood c/s - negative to date 2. Biliary sepsis with acute cholecystitis - s/p open cholecystectomy - 10/31 - f/u CT Abd. 11/12 - negative 3. Leukocytosis -2nd to above -Improving 4. ESRD -Maintenance HD -New Vas-Cath placed in right common femoral vein 11/10 5. Back pain -Etiology unclear - No specific complaints today of pain in the back 6. Anemia 7. Type 2 diabetes mellitus PLAN: 1. Continue vancomycin 2. Continued supportive measures 3. Await blood c/s on 11/09 - NGTD Subjective Date of service: 11/12/16 Principal diagnosis: Permacath related bacteremia Interval history: No complaints other than being cold. Objective - Exam Narrative Exam: GENERAL: Well-developed, thin female who is alert and in no acute distress. Appears somewhat chronically ill, lying right lateral recumbent HEAD: Normocephalic. No lesions seen. Mild by temporalis muscle wasting. EYES: Pupils are equal reactive to light and accommodation. There is no scleral icterus. Optic fundi are not examined. Bilateral arcus senilis. EARS: Normal external ears without external drainage THROAT: Oropharynx is normal with no evidence of oral candidiasis or pharyngitis. Poor dentition. NECK: Supple. No enlargement of the thyroid gland. No significant cervical lymphadenopathy. No jugular venous distention at 30. LUNGS: Clear with no adventitious sounds. CHEST: Right sided PermCath site with dressing in tact. HEART: Regular rate. S1 and S2 are normal. There are no murmurs, gallops, clicks or rubs heard. ABDOMEN: Soft with mild right upper quadrant tenderness without guarding or rebound. Liver and spleen are not palpably enlarged or tender. No palpable masses. Bowel sounds are normoactive. Colostomy in place with healthy mucosa and functioning normally. Right upper quadrant abdominal wound healing with no signs of infection. EXTREMITIES: No rash, peripheral lymphadenopathy, clubbing or edema. Right groin Vas-Cath with clean dressing noted. Mild tenderness over upper lumbar spine with no other objective abnormalities. NEUROLOGIC: No focal findings. - Constitutional Vitals: Vital Signs Temp Pulse Resp BP Pulse Ox 98.2 F 98 H 20 163/65 97 11/12/16 09:12 11/12/16 11:34 11/12/16 11:34 11/12/16 11:34 11/12/16 09:12 Temperature -Last 24 Hours Temperature 98.2 F Temperature 98.6 F Temperature 97.9 F Temperature 98.2 F Temperature 98.2 F - Labs CBC & Chem 7: 11/12/16 05:38 11/12/16 05:38 Labs: Abnormal lab results 11/11/16 11/11/16 11/12/16 Range/Units 16:41 21:46 05:38 WBC 18.5 H (4.5-11.0) K/mm3 RBC 2.60 L (3.65-5.03) M/mm3 Hgb 6.7 L (10.1-14.3) gm/dl Hct 22.7 L (30.3-42.9) % MCH 26 L (28-32) pg RDW 21.0 H (13.2-15.2) % Plt Count 514 H (140-440) K/mm3 Sodium (137-145) mmol/L Chloride (98-107) mmol/L BUN (7-17) mg/dL Creatinine (0.7-1.2) mg/dL Glucose (65-100) mg/dL POC Glucose 288 H 367 H (70-105) Calcium (8.4-10.2) mg/dL 11/12/16 Range/Units 05:38 WBC (4.5-11.0) K/mm3 RBC (3.65-5.03) M/mm3 Hgb (10.1-14.3) gm/dl Hct (30.3-42.9) % MCH (28-32) pg RDW (13.2-15.2) % Plt Count (140-440) K/mm3 Sodium 132 L (137-145) mmol/L Chloride 93.8 L (98-107) mmol/L BUN 26 H (7-17) mg/dL Creatinine 5.1 H D (0.7-1.2) mg/dL Glucose 117 H (65-100) mg/dL POC Glucose (70-105) Calcium 8.3 L (8.4-10.2) mg/dL
--- NOTE | 2016-11-12 15:43 | Progress Note ---
Assessment and Plan Assessment and plan: MRSA bacteremia - She is on IV vancomycin - Repeat blood cultures was positive for MRSA, and the one done yesterday the preliminary result is negative. - Another blood culture was taken from catheter tip - Vas-Cath was removed yesterday and femoral vasc cath was placed - Echocardiography was done and reading is dictated but not seen on the report - ID Consult appreciated - Contact precaution Cholecystitis s/p cholecystectomy -Abdominal pain is getting better End stage renal disease on hemodialysis - Femoral vasc cath was placed Hypertension - Controlled DM2 - Continue current management DVT prophylaxis - on lovenox Disposition - Continue inpatient care New Problem - Right flank pain - CT abdomen was done to evaluate for possible stone and will follow the result. History Interval history: She was seen and evaluated this morning. She denied fevers but admitted for chills. complaining of right flank pain. Hospitalist Physical - Physical exam Narrative exam: Not in cardiopulmonary distress. The patient appeared well nourished and normally developed. Vital signs as documented. Head exam is unremarkable. No scleral icterus . Neck is without jugular venous distension, thyromegaly, or carotid bruits. Lungs are clear to auscultation. Cardiac exam reveals regular rate and Rhythm. First and second heart sounds normal. No murmurs, rubs or gallops. Abdominal has colostomy bag on the left lower abdomen. Tenderness on the right flank area. MOUNTER CLARINETS: Alert and oriented 3. No focal weakness. - Constitutional Vitals: Temp Pulse Resp BP Pulse Ox 98.2 F 98 H 20 163/65 100 11/12/16 09:12 11/12/16 11:34 11/12/16 11:34 11/12/16 11:34 11/12/16 10:00 General appearance: Present: no acute distress, well-nourished Results - Labs CBC & Chem 7: 11/12/16 05:38 11/12/16 05:38 Labs: Laboratory Last Values WBC 18.5 K/mm3 (4.5-11.0) H 11/12/16 05:38 RBC 2.60 M/mm3 (3.65-5.03) L 11/12/16 05:38 Hgb 6.7 gm/dl (10.1-14.3) L 11/12/16 05:38 Hct 22.7 % (30.3-42.9) L 11/12/16 05:38 MCV 87 fl (79-97) 11/12/16 05:38 MCH 26 pg (28-32) L 11/12/16 05:38 MCHC 30 % (30-34) 11/12/16 05:38 RDW 21.0 % (13.2-15.2) H 11/12/16 05:38 Plt Count 514 K/mm3 (140-440) H 11/12/16 05:38 Lymph % (Auto) [place] 11/12/16 05:38 [place] % (Auto) [employer] [place] 11/12/16 05:38 Eos % (Auto) [employer] [place] 11/12/16 05:38 Baso % (Auto) [employer] [place] 11/12/16 05:38 Lymph # [employer] [place] 11/12/16 05:38 [place] # [employer] [place] 11/12/16 05:38 Eos # [employer] [place] 11/12/16 05:38 Baso # [employer] [place] 11/12/16 05:38 Add Manual Diff Complete 11/10/16 04:38 Total Counted 100 11/10/16 04:38 Seg Neutrophils % [place] 11/12/16 05:38 Seg Neuts % (Manual) 68.0 % (40.0-70.0) 11/10/16 04:38 Band Neutrophils % 6.0 % 11/10/16 04:38 Lymphocytes % (Manual) 12.0 % (13.4-35.0) L 11/10/16 04:38 Reactive Lymphs % (Man) 0 % 11/10/16 04:38 Monocytes % (Manual) 13.0 % (0.0-7.3) H 11/10/16 04:38 Eosinophils % (Manual) 1.0 % (0.0-4.3) 11/10/16 04:38 Basophils % (Manual) 0 % (0.0-1.8) 11/08/16 04:46 Metamyelocytes % 0 % 11/10/16 04:38 Myelocytes % 0 % 11/10/16 04:38 Promyelocytes % 0 % 11/10/16 04:38 Blast Cells % 0 % 11/10/16 04:38 Nucleated RBC % Not Reportable 11/10/16 04:38 Seg Neutrophils # [place] 11/12/16 05:38 Seg Neutrophils # Man 10.2 K/mm3 (1.8-7.7) H 11/10/16 04:38 Band Neutrophils # 0.9 K/mm3 11/10/16 04:38 Lymphocytes # (Manual) 1.8 K/mm3 (1.2-5.4) 11/10/16 04:38 Abs React Lymphs (Man) 0.0 K/mm3 11/10/16 04:38 Monocytes # (Manual) 2.0 K/mm3 (0.0-0.8) H 11/10/16 04:38 Eosinophils # (Manual) 0.2 K/mm3 (0.0-0.4) 11/10/16 04:38 Basophils # (Manual) 0.0 K/mm3 (0.0-0.1) 11/10/16 04:38 Metamyelocytes # 0.0 K/mm3 11/10/16 04:38 Myelocytes # 0.0 K/mm3 11/10/16 04:38 Promyelocytes # 0.0 K/mm3 11/10/16 04:38 Blast Cells # 0.0 K/mm3 11/10/16 04:38 WBC Morphology Not Reportable 11/10/16 04:38 Hypersegmented Neuts Not Reportable 11/10/16 04:38 Hyposegmented Neuts Not Reportable 11/10/16 04:38 Hypogranular Neuts Not Reportable 11/10/16 04:38 Smudge Cells Not Reportable 11/10/16 04:38 Toxic Granulation Not Reportable 11/10/16 04:38 Toxic Vacuolation Not Reportable 11/10/16 04:38 Dohle Bodies Not Reportable 11/10/16 04:38 Pelger-Huet Anomaly Not Reportable 11/10/16 04:38 Aida Rods Not Reportable 11/10/16 04:38 Platelet Estimate Consistent w auto 11/10/16 04:38 Clumped Platelets Not Reportable 11/10/16 04:38 Plt Clumps, EDTA Not Reportable 11/10/16 04:38 Large Platelets Not Reportable 11/10/16 04:38 Giant Platelets Not Reportable 11/10/16 04:38 Platelet Satelliting Not Reportable 11/10/16 04:38 Plt Morphology Comment Not Reportable 11/10/16 04:38 RBC Morphology Not Reportable 11/10/16 04:38 Dimorphic RBCs Not Reportable 11/10/16 04:38 Polychromasia Not Reportable 11/10/16 04:38 Hypochromasia 1+ 11/10/16 04:38 Poikilocytosis Not Reportable 11/10/16 04:38 Anisocytosis 1+ 11/10/16 04:38 Microcytosis Not Reportable 11/10/16 04:38 Macrocytosis Not Reportable 11/10/16 04:38 Spherocytes Not Reportable 11/10/16 04:38 Pappenheimer Bodies Not Reportable 11/10/16 04:38 Sickle Cells Not Reportable 11/10/16 04:38 Target Cells Not Reportable 11/10/16 04:38 Tear Drop Cells Not Reportable 11/10/16 04:38 Ovalocytes Not Reportable 11/10/16 04:38 Helmet Cells Not Reportable 11/10/16 04:38 [place] Bodies Not Reportable 11/10/16 04:38 [place] Rings Not Reportable 11/10/16 04:38 [place] Cells Not Reportable 11/10/16 04:38 Bite Cells Not Reportable 11/10/16 04:38 Crenated Cell Not Reportable 11/10/16 04:38 Elliptocytes Not Reportable 11/10/16 04:38 Acanthocytes (Spur) Not Reportable 11/10/16 04:38 Rouleaux Not Reportable 11/10/16 04:38 Hemoglobin C Crystals Not Reportable 11/10/16 04:38 Schistocytes Not Reportable 11/10/16 04:38 Malaria parasites Not Reportable 11/10/16 04:38 [place] Bodies Not Reportable 11/10/16 04:38 Hem Pathologist Commnt No 11/10/16 04:38 POC ABG pH 7.488 (7.35-7.45) H 11/01/16 05:56 POC ABG pCO2 31.0 (35-45) L 11/01/16 05:56 POC ABG pO2 106 (80-105) H 11/01/16 05:56 POC ABG HCO3 23.5 11/01/16 05:56 POC ABG Total CO2 24 11/01/16 05:56 POC ABG O2 Sat 99 11/01/16 05:56 POC ABG Base Excess 0 11/01/16 05:56 FiO2 40 % 11/01/16 05:56 Sodium 132 mmol/L (137-145) L 11/12/16 05:38 Potassium 4.3 mmol/L (3.6-5.0) 11/12/16 05:38 Chloride 93.8 mmol/L (98-107) L 11/12/16 05:38 Carbon Dioxide 23 mmol/L (22-30) 11/12/16 05:38 Anion Gap 20 mmol/L 11/12/16 05:38 BUN 26 mg/dL (7-17) H 11/12/16 05:38 Creatinine 5.1 mg/dL (0.7-1.2) H D 11/12/16 05:38 Estimated GFR 10 ml/min 11/12/16 05:38 BUN/Creatinine Ratio 5.09 % 11/12/16 05:38 Glucose 117 mg/dL (65-100) H 11/12/16 05:38 POC Glucose 152 (70-105) H 11/12/16 07:56 Calcium 8.3 mg/dL (8.4-10.2) L 11/12/16 05:38 Phosphorus 3.1 mg/dL (2.5-4.5) 11/02/16 04:36 Magnesium 1.7 mg/dL (1.7-2.3) 11/02/16 04:36 Total Bilirubin 0.6 mg/dL (0.1-1.2) 11/01/16 22:37 AST 44 units/L (5-40) H 11/01/16 22:37 ALT 18 units/L (7-56) 11/01/16 22:37 Alkaline Phosphatase 109 units/L (35-129) 11/01/16 22:37 Total Protein 7.2 g/dL (6.3-8.2) 11/01/16 22:37 Albumin 2.4 g/dL (3.9-5) L 11/01/16 22:37 Albumin/Globulin Ratio 0.5 % 11/01/16 22:37 Urine Color Yellow (Yellow) 10/30/16 00:30 Urine Turbidity Slightly-cloudy (Clear) 10/30/16 00:30 Urine pH 5.0 (5.0-7.0) 10/30/16 00:30 Ur Specific [place] 1.015 (1.003-1.030) 10/30/16 00:30 Urine Protein 100 mg/dl mg/dL (Negative) 10/30/16 00:30 Urine Glucose (UA) Neg mg/dL (Negative) 10/30/16 00:30 Urine Ketones Tr mg/dL (Negative) 10/30/16 00:30 Urine Blood Neg (Negative) 10/30/16 00:30 Urine Nitrite Neg (Negative) 10/30/16 00:30 Urine Bilirubin Neg (Negative) 10/30/16 00:30 Urine Urobilinogen < 2.0 mg/dL (<2.0) 10/30/16 00:30 Ur Leukocyte Esterase Neg (Negative) 10/30/16 00:30 Urine WBC (Auto) 10.0 /HPF (0.0-6.0) H 10/30/16 00:30 Urine RBC (Auto) 2.0 /HPF (0.0-6.0) 10/30/16 00:30 U Epithel Cells (Auto) 6.0 /HPF (0-13.0) 10/30/16 00:30 Amorphous Crystals 1+ 10/30/16 00:30 Hyaline Casts 16 /LPF 10/30/16 00:30 Granular Casts 4 /LPF 10/30/16 00:30 Urine Mucus Few /HPF 10/30/16 00:30 Random Vancomycin 19.6 ug/mL (0-40.0) 11/10/16 04:38 Blood Type B POSITIVE 10/31/16 17:38 Antibody Screen Negative 10/31/16 17:38
[2016-11-13 05:37] LABS: BUN/Creatinine Ratio 6.11; Calcium 8.3 mg/dL (8.4-10.2); Chloride 89.6 mmol/L (98-107); Potassium 4.4 mmol/L (3.6-5.0)
[2016-11-13 06:00] LABS: Basophils % (Auto) 0.8 % (0.0-1.8); Eosinophils % (Auto) 1.3 % (0.0-4.3); Hematocrit 26.2 % (30.3-42.9); Hemoglobin 8.3 gm/dl (10.1-14.3); Mean Corpuscular HGB Conc 32 % (30-34); Mean Corpuscular Hemoglobin 26 pg (28-32); Platelet Count 532 K/mm3 (140-440); Red Blood Count 3.15 M/mm3 (3.65-5.03); Red Cell Distribution Width 18.5 % (13.2-15.2); White Blood Count 12.8 K/mm3 (4.5-11.0)
[2016-11-13 06:09] LABS: Mean Corpuscular Volume 85 fl (79-97)
--- NOTE | 2016-11-13 08:32 | Progress Note ---
Assessment and Plan - Patient Problems (1) Line sepsis associated with dialysis catheter Current Visit: Yes Status: Acute Plan to address problem: Permacath placement today if OK with infectious disease salesforce consultant. We can arrange for intravenous antibiotics administration at the outpatient dialysis clinic depending on ID recommendations (2) MRSA bacteremia Current Visit: Yes Status: Acute Plan to address problem: Repeat blood cultures negative so far. Continue to follow up (3) End-stage renal disease (ESRD) Current Visit: Yes Status: Chronic Plan to address problem: Hemodialysis on a Sunday, Sunday and Sunday schedule. Next Hemodialysis this am (4) Hypertensive chronic kidney disease with stage 5 chronic kidney disease or end stage renal disease Current Visit: Yes Status: Chronic Plan to address problem: Follow-up blood pressure on current medications (5) Anemia in chronic kidney disease Current Visit: No Status: Chronic Plan to address problem: Give erythropoietin on dialysis. Follow up hemoglobin in the morning. (6) Colostomy in place Current Visit: Yes Status: Acute Plan to address problem: Continue colostomy care (7) Diabetes mellitus type II, controlled Current Visit: No Status: Chronic Qualifiers: Diabetes mellitus complication status: with kidney complications Diabetes mellitus complication detail: D Diabetic retinopathy severity: D Diabetes mellitus macular edema: D Diabetes mellitus senior living insulin use: D Chronic kidney disease stage: on chronic dialysis Plan to address problem: Blood sugar management by primary attending Subjective Date of service: 11/13/16 Principal diagnosis: Permacath related bacteremia Interval history: Patient seen lying in bed. She has no complaints today. No chest pain or shortness of breath. Objective - Exam Narrative Exam: Elderly -[place] female lying in bed in no acute distress Neck supple, no thyromegaly no jugular venous distention CVS S1-S2 regular rate rhythm without murmur, rub or gallop Chest clear to auscultation Abdomen soft nondistended, OSTOMY intact, mild epigastric tenderness, no organomegaly no bruit bowel sounds present Extremities no edema no cyanosis or clubbing Neuro awake, alert oriented x3 no gross deficit - Vital Signs Vital signs: Vital Signs - 12hr 11/12/16 11/13/16 11/13/16 23:13 00:26 05:50 Temperature 98.4 F Pulse Rate 90 Pulse Rate [ 94 H 91 H Right Radial] Respiratory 18 20 Rate Blood Pressure 173/69 136/60 [Right Radial Artery] O2 Sat by Pulse 100 96 Oximetry - Lab 11/13/16 04:28 11/13/16 04:28 Most recent lab results Calcium 8.3 mg/dL (8.4-10.2) L 11/13/16 04:28 Phosphorus 3.1 mg/dL (2.5-4.5) 11/02/16 04:36 Magnesium 1.7 mg/dL (1.7-2.3) 11/02/16 04:36
--- NOTE | 2016-11-13 09:05 | Progress Note ---
Assessment and Plan Acute cholecystitis. Improving MRSA bacteremia. No fever. Completing antibiotics. ID following Status post acute respiratory failure. No additional respiratory findings. Chest remains clear, no respiratory complaints End-stage renal disease. Nephrology following.Pending new permacath Anemia. Recommendations Continue antibiotics as scheduled Continue with Incentive spirometry 4-6 hours Out of bed as tolerated DVT prophylaxis Discussed with patient. We'll sign off unless needed Subjective Date of service: 11/13/16 Principal diagnosis: Permacath related bacteremia Interval history: Less epigastric abdominal pain this morning. Tolerating breakfast well. No fever , cough or expectoration reported Objective Vital Signs - 12hr 11/12/16 11/13/16 11/13/16 23:13 00:26 05:50 Temperature 98.4 F Pulse Rate 90 Pulse Rate [ 94 H 91 H Right Radial] Respiratory 18 20 Rate Blood Pressure 173/69 136/60 [Right Radial Artery] O2 Sat by Pulse 100 96 Oximetry Constitutional: no acute distress, alert Eyes: non-icteric ENT: oropharynx moist Neck: supple Effort: normal Ascultation: Bilateral: clear Percussion: Bilateral: not dull Cardiovascular: regular rate and rhythm (no murmur noted) Gastrointestinal: normoactive bowel sounds, soft, non-distended, other (mild epigastric tenderness) Extremities: no cyanosis, no edema, pink and warm Neurologic: normal mental status, non-focal exam, pupils equal and round, CN II- XII normal Psychiatric: mood appropriate, affect normal CBC and BMP: 11/13/16 04:28 11/13/16 04:28 ABG, PT/INR, D-dimer: ABG POC ABG pH 7.488 (7.35-7.45) H 11/01/16 05:56 POC ABG pCO2 31.0 (35-45) L 11/01/16 05:56 POC ABG pO2 106 (80-105) H 11/01/16 05:56 POC ABG HCO3 23.5 11/01/16 05:56 POC ABG Total CO2 24 11/01/16 05:56 POC ABG O2 Sat 99 11/01/16 05:56 Abnormal lab findings: Abnormal Labs 10/30/16 10/30/16 10/30/16 09:31 09:31 23:33 WBC 19.0 H RBC 3.11 L Hgb 7.9 L Hct 26.5 L MCH 25 L MCHC RDW 18.2 H Plt Count 460 H Lymph % (Auto) [place] % (Auto) Lymph # [place] # Seg Neutrophils % Seg Neuts % (Manual) 87.0 H Lymphocytes % (Manual) 3.0 L Monocytes % (Manual) Seg Neutrophils # Seg Neutrophils # Man 16.5 H Lymphocytes # (Manual) 0.6 L Monocytes # (Manual) 1.0 H Basophils # (Manual) 0.2 H POC ABG pH POC ABG pCO2 POC ABG pO2 Sodium Potassium Chloride 97.4 L Carbon Dioxide BUN 61 H Creatinine 7.5 H Glucose 176 H POC Glucose 178 H Calcium 8.0 L AST Albumin Crossmatch 10/31/16 10/31/16 10/31/16 06:30 06:30 07:45 WBC 20.6 H RBC 3.25 L Hgb 8.2 L Hct 27.7 L MCH 25 L MCHC RDW 18.5 H Plt Count Lymph % (Auto) [place] % (Auto) Lymph # [place] # Seg Neutrophils % Seg Neuts % (Manual) 90.0 H Lymphocytes % (Manual) 3.0 L Monocytes % (Manual) Seg Neutrophils # Seg Neutrophils # Man 18.5 H Lymphocytes # (Manual) 0.6 L Monocytes # (Manual) Basophils # (Manual) POC ABG pH POC ABG pCO2 POC ABG pO2 Sodium Potassium Chloride Carbon Dioxide BUN 32 H Creatinine 4.7 H Glucose 161 H POC Glucose 164 H Calcium 7.7 L AST Albumin 2.5 L Crossmatch 10/31/16 10/31/16 10/31/16 11:15 19:00 21:55 WBC RBC Hgb Hct MCH MCHC RDW Plt Count Lymph % (Auto) [place] % (Auto) Lymph # [place] # Seg Neutrophils % Seg Neuts % (Manual) Lymphocytes % (Manual) Monocytes % (Manual) Seg Neutrophils # Seg Neutrophils # Man Lymphocytes # (Manual) Monocytes # (Manual) Basophils # (Manual) POC ABG pH 7.579 H POC ABG pCO2 29.6 L POC ABG pO2 304 H Sodium Potassium Chloride Carbon Dioxide BUN Creatinine Glucose POC Glucose 195 H 160 H Calcium AST Albumin Crossmatch 11/01/16 11/01/16 11/01/16 00:50 02:06 05:56 WBC RBC Hgb Hct MCH MCHC RDW Plt Count Lymph % (Auto) [place] % (Auto) Lymph # [place] # Seg Neutrophils % Seg Neuts % (Manual) Lymphocytes % (Manual) Monocytes % (Manual) Seg Neutrophils # Seg Neutrophils # Man Lymphocytes # (Manual) Monocytes # (Manual) Basophils # (Manual) POC ABG pH 7.488 H POC ABG pCO2 31.0 L POC ABG pO2 106 H Sodium Potassium Chloride Carbon Dioxide 20 L BUN 45 H Creatinine 6.0 H Glucose 159 H POC Glucose 194 H Calcium 7.9 L AST Albumin Crossmatch 11/01/16 11/01/16 11/01/16 08:01 11:32 16:21 WBC RBC Hgb Hct MCH MCHC RDW Plt Count Lymph % (Auto) [place] % (Auto) Lymph # [place] # Seg Neutrophils % Seg Neuts % (Manual) Lymphocytes % (Manual) Monocytes % (Manual) Seg Neutrophils # Seg Neutrophils # Man Lymphocytes # (Manual) Monocytes # (Manual) Basophils # (Manual) POC ABG pH POC ABG pCO2 POC ABG pO2 Sodium Potassium Chloride Carbon Dioxide BUN Creatinine Glucose POC Glucose 183 H 172 H 189 H Calcium AST Albumin Crossmatch 11/01/16 11/01/16 11/02/16 18:51 22:37 00:10 WBC 23.7 H RBC 3.24 L Hgb 8.3 L Hct 27.4 L MCH 26 L MCHC RDW 18.6 H Plt Count Lymph % (Auto) [place] % (Auto) Lymph # [place] # Seg Neutrophils % Seg Neuts % (Manual) 91.0 H Lymphocytes % (Manual) 1.0 L Monocytes % (Manual) Seg Neutrophils # Seg Neutrophils # Man 21.6 H Lymphocytes # (Manual) 0.2 L Monocytes # (Manual) Basophils # (Manual) POC ABG pH POC ABG pCO2 POC ABG pO2 Sodium Potassium Chloride 96.9 L Carbon Dioxide BUN Creatinine 2.5 H D Glucose 141 H POC Glucose 162 H Calcium 8.2 L AST 44 H Albumin 2.4 L Crossmatch 11/02/16 11/02/16 11/02/16 04:36 04:36 07:46 WBC 23.3 H RBC 3.23 L Hgb 8.0 L Hct 27.6 L MCH 25 L MCHC 29 L RDW 18.6 H Plt Count Lymph % (Auto) [place] % (Auto) Lymph # [place] # Seg Neutrophils % Seg Neuts % (Manual) Lymphocytes % (Manual) 6.0 L Monocytes % (Manual) Seg Neutrophils # Seg Neutrophils # Man 16.1 H Lymphocytes # (Manual) Monocytes # (Manual) 1.4 H Basophils # (Manual) POC ABG pH POC ABG pCO2 POC ABG pO2 Sodium Potassium 3.5 L Chloride 94.2 L Carbon Dioxide BUN 20 H Creatinine 2.8 H Glucose 136 H POC Glucose 154 H Calcium AST Albumin Crossmatch 11/02/16 11/02/16 11/03/16 11:58 15:33 00:23 WBC RBC Hgb Hct MCH MCHC RDW Plt Count Lymph % (Auto) [place] % (Auto) Lymph # [place] # Seg Neutrophils % Seg Neuts % (Manual) Lymphocytes % (Manual) Monocytes % (Manual) Seg Neutrophils # Seg Neutrophils # Man Lymphocytes # (Manual) Monocytes # (Manual) Basophils # (Manual) POC ABG pH POC ABG pCO2 POC ABG pO2 Sodium Potassium Chloride Carbon Dioxide BUN Creatinine Glucose POC Glucose 163 H 147 H 134 H Calcium AST Albumin Crossmatch 11/03/16 11/04/16 11/04/16 07:19 00:06 07:50 WBC RBC Hgb Hct MCH MCHC RDW Plt Count Lymph % (Auto) [place] % (Auto) Lymph # [place] # Seg Neutrophils % Seg Neuts % (Manual) Lymphocytes % (Manual) Monocytes % (Manual) Seg Neutrophils # Seg Neutrophils # Man Lymphocytes # (Manual) Monocytes # (Manual) Basophils # (Manual) POC ABG pH POC ABG pCO2 POC ABG pO2 Sodium Potassium Chloride Carbon Dioxide BUN Creatinine Glucose POC Glucose 113 H 161 H 198 H Calcium AST Albumin Crossmatch 11/04/16 11/04/16 11/04/16 11:11 16:07 21:50 WBC RBC Hgb Hct MCH MCHC RDW Plt Count Lymph % (Auto) [place] % (Auto) Lymph # [place] # Seg Neutrophils % Seg Neuts % (Manual) Lymphocytes % (Manual) Monocytes % (Manual) Seg Neutrophils # Seg Neutrophils # Man Lymphocytes # (Manual) Monocytes # (Manual) Basophils # (Manual) POC ABG pH POC ABG pCO2 POC ABG pO2 Sodium Potassium Chloride Carbon Dioxide BUN Creatinine Glucose POC Glucose 205 H 251 H 136 H Calcium AST Albumin Crossmatch 11/05/16 11/05/16 11/05/16 03:18 03:18 07:14 WBC 22.1 H RBC 2.87 L Hgb 7.3 L Hct 26.2 L MCH 25 L MCHC 28 L RDW 19.3 H Plt Count Lymph % (Auto) [place] % (Auto) Lymph # [place] # Seg Neutrophils % Seg Neuts % (Manual) Lymphocytes % (Manual) Monocytes % (Manual) Seg Neutrophils # Seg Neutrophils # Man Lymphocytes # (Manual) Monocytes # (Manual) Basophils # (Manual) POC ABG pH POC ABG pCO2 POC ABG pO2 Sodium 135 L Potassium Chloride 94.8 L Carbon Dioxide BUN 28 H Creatinine 4.5 H D Glucose 128 H POC Glucose 114 H Calcium AST Albumin Crossmatch 11/05/16 11/05/16 11/06/16 11:46 16:27 22:01 WBC RBC Hgb Hct MCH MCHC RDW Plt Count Lymph % (Auto) [place] % (Auto) Lymph # [place] # Seg Neutrophils % Seg Neuts % (Manual) Lymphocytes % (Manual) Monocytes % (Manual) Seg Neutrophils # Seg Neutrophils # Man Lymphocytes # (Manual) Monocytes # (Manual) Basophils # (Manual) POC ABG pH POC ABG pCO2 POC ABG pO2 Sodium Potassium Chloride Carbon Dioxide BUN Creatinine Glucose POC Glucose 219 H 217 H 183 H Calcium AST Albumin Crossmatch 11/07/16 11/07/16 11/07/16 07:34 12:20 17:59 WBC RBC Hgb Hct MCH MCHC RDW Plt Count Lymph % (Auto) [place] % (Auto) Lymph # [place] # Seg Neutrophils % Seg Neuts % (Manual) Lymphocytes % (Manual) Monocytes % (Manual) Seg Neutrophils # Seg Neutrophils # Man Lymphocytes # (Manual) Monocytes # (Manual) Basophils # (Manual) POC ABG pH POC ABG pCO2 POC ABG pO2 Sodium Potassium Chloride Carbon Dioxide BUN Creatinine Glucose POC Glucose 137 H 263 H 155 H Calcium AST Albumin Crossmatch 11/07/16 11/08/16 11/08/16 21:25 04:46 04:46 WBC 15.8 H RBC 2.70 L Hgb 7.1 L Hct 23.0 L MCH 26 L MCHC RDW 18.9 H Plt Count Lymph % (Auto) [place] % (Auto) Lymph # [place] # Seg Neutrophils % Seg Neuts % (Manual) 83.0 H Lymphocytes % (Manual) 6.0 L Monocytes % (Manual) 8.0 H Seg Neutrophils # Seg Neutrophils # Man 13.1 H Lymphocytes # (Manual) 0.9 L Monocytes # (Manual) 1.3 H Basophils # (Manual) POC ABG pH POC ABG pCO2 POC ABG pO2 Sodium 132 L Potassium Chloride 93.0 L Carbon Dioxide BUN 22 H Creatinine 4.6 H Glucose POC Glucose 308 H Calcium AST Albumin Crossmatch 11/08/16 11/08/16 11/09/16 18:05 22:36 04:56 WBC 17.8 H RBC 2.64 L Hgb 6.9 L Hct 22.6 L MCH 26 L MCHC RDW 18.9 H Plt Count Lymph % (Auto) 8.9 L [place] % (Auto) 11.2 H Lymph # [place] # 2.0 H Seg Neutrophils % 79.1 H Seg Neuts % (Manual) Lymphocytes % (Manual) Monocytes % (Manual) Seg Neutrophils # 14.1 H Seg Neutrophils # Man Lymphocytes # (Manual) Monocytes # (Manual) Basophils # (Manual) POC ABG pH POC ABG pCO2 POC ABG pO2 Sodium Potassium Chloride Carbon Dioxide BUN Creatinine Glucose POC Glucose 204 H 137 H Calcium AST Albumin Crossmatch 11/09/16 11/09/16 11/09/16 04:56 07:39 11:24 WBC RBC Hgb Hct MCH MCHC RDW Plt Count Lymph % (Auto) [place] % (Auto) Lymph # [place] # Seg Neutrophils % Seg Neuts % (Manual) Lymphocytes % (Manual) Monocytes % (Manual) Seg Neutrophils # Seg Neutrophils # Man Lymphocytes # (Manual) Monocytes # (Manual) Basophils # (Manual) POC ABG pH POC ABG pCO2 POC ABG pO2 Sodium 132 L Potassium Chloride 94.0 L Carbon Dioxide BUN Creatinine 3.0 H Glucose 118 H POC Glucose 134 H 287 H Calcium AST Albumin Crossmatch 11/09/16 11/09/16 11/10/16 16:16 22:24 04:38 WBC 15.0 H RBC 2.80 L Hgb 7.3 L Hct 23.8 L MCH 26 L MCHC RDW 19.9 H Plt Count Lymph % (Auto) [place] % (Auto) Lymph # [place] # Seg Neutrophils % Seg Neuts % (Manual) Lymphocytes % (Manual) 12.0 L Monocytes % (Manual) 13.0 H Seg Neutrophils # Seg Neutrophils # Man 10.2 H Lymphocytes # (Manual) Monocytes # (Manual) 2.0 H Basophils # (Manual) POC ABG pH POC ABG pCO2 POC ABG pO2 Sodium Potassium Chloride Carbon Dioxide BUN Creatinine Glucose POC Glucose 336 H 127 H Calcium AST Albumin Crossmatch 11/10/16 11/10/16 11/10/16 04:38 07:23 15:58 WBC RBC Hgb Hct MCH MCHC RDW Plt Count Lymph % (Auto) [place] % (Auto) Lymph # [place] # Seg Neutrophils % Seg Neuts % (Manual) Lymphocytes % (Manual) Monocytes % (Manual) Seg Neutrophils # Seg Neutrophils # Man Lymphocytes # (Manual) Monocytes # (Manual) Basophils # (Manual) POC ABG pH POC ABG pCO2 POC ABG pO2 Sodium 133 L Potassium Chloride 94.2 L Carbon Dioxide BUN Creatinine 4.5 H Glucose 117 H POC Glucose 155 H 219 H Calcium AST Albumin Crossmatch 11/10/16 11/11/16 11/11/16 21:39 04:36 04:36 WBC 15.0 H RBC 2.67 L Hgb 6.9 L Hct 22.7 L MCH 26 L MCHC RDW 20.0 H Plt Count 456 H Lymph % (Auto) 8.6 L [place] % (Auto) 10.6 H Lymph # [place] # 1.6 H Seg Neutrophils % 79.6 H Seg Neuts % (Manual) Lymphocytes % (Manual) Monocytes % (Manual) Seg Neutrophils # 12.0 H Seg Neutrophils # Man Lymphocytes # (Manual) Monocytes # (Manual) Basophils # (Manual) POC ABG pH POC ABG pCO2 POC ABG pO2 Sodium Potassium Chloride 96.0 L Carbon Dioxide BUN Creatinine 3.0 H Glucose 147 H POC Glucose 225 H Calcium 8.2 L AST Albumin Crossmatch 11/11/16 11/11/16 11/11/16 07:50 11:50 16:41 WBC RBC Hgb Hct MCH MCHC RDW Plt Count Lymph % (Auto) [place] % (Auto) Lymph # [place] # Seg Neutrophils % Seg Neuts % (Manual) Lymphocytes % (Manual) Monocytes % (Manual) Seg Neutrophils # Seg Neutrophils # Man Lymphocytes # (Manual) Monocytes # (Manual) Basophils # (Manual) POC ABG pH POC ABG pCO2 POC ABG pO2 Sodium Potassium Chloride Carbon Dioxide BUN Creatinine Glucose POC Glucose 160 H 159 H 288 H Calcium AST Albumin Crossmatch 11/11/16 11/12/16 11/12/16 21:46 05:38 05:38 WBC 18.5 H RBC 2.60 L Hgb 6.7 L Hct 22.7 L MCH 26 L MCHC RDW 21.0 H Plt Count 514 H Lymph % (Auto) [place] % (Auto) Lymph # [place] # Seg Neutrophils % Seg Neuts % (Manual) Lymphocytes % (Manual) Monocytes % (Manual) Seg Neutrophils # Seg Neutrophils # Man Lymphocytes # (Manual) Monocytes # (Manual) Basophils # (Manual) POC ABG pH POC ABG pCO2 POC ABG pO2 Sodium 132 L Potassium Chloride 93.8 L Carbon Dioxide BUN 26 H Creatinine 5.1 H D Glucose 117 H POC Glucose 367 H Calcium 8.3 L AST Albumin Crossmatch 11/12/16 11/12/16 11/12/16 07:56 11:30 16:56 WBC RBC Hgb Hct MCH MCHC RDW Plt Count Lymph % (Auto) [place] % (Auto) Lymph # [place] # Seg Neutrophils % Seg Neuts % (Manual) Lymphocytes % (Manual) Monocytes % (Manual) Seg Neutrophils # Seg Neutrophils # Man Lymphocytes # (Manual) Monocytes # (Manual) Basophils # (Manual) POC ABG pH POC ABG pCO2 POC ABG pO2 Sodium Potassium Chloride Carbon Dioxide BUN Creatinine Glucose POC Glucose 152 H 220 H Calcium AST Albumin Crossmatch See Detail 11/12/16 11/13/16 11/13/16 22:18 04:28 04:28 WBC 12.8 H RBC 3.15 L Hgb 8.3 L Hct 26.2 L MCH 26 L MCHC RDW 18.5 H Plt Count 532 H Lymph % (Auto) 8.1 L [place] % (Auto) 9.7 H Lymph # 1.0 L [place] # 1.2 H Seg Neutrophils % 80.1 H Seg Neuts % (Manual) Lymphocytes % (Manual) Monocytes % (Manual) Seg Neutrophils # 10.3 H Seg Neutrophils # Man Lymphocytes # (Manual) Monocytes # (Manual) Basophils # (Manual) POC ABG pH POC ABG pCO2 POC ABG pO2 Sodium 130 L Potassium Chloride 89.6 L Carbon Dioxide BUN 33 H Creatinine 5.4 H Glucose POC Glucose 231 H Calcium 8.3 L AST Albumin Crossmatch
[2016-11-13] MEDS: NOVOLOG SUB-Q SCH ×3 (09:18→17:25)
[2016-11-13] MEDS ORDERED: HEPARIN/NS 5000 UNIT/500ML(CATH LAB) 500 ML IR ONE (11:53)
[2016-11-13] MEDS ORDERED: VERSED ONE (11:54)
[2016-11-13] MEDS ORDERED: ANCEF/STERILE WATER 2 GM/20 ML 2 GM/20 ML SYRINGE IV ONE (11:54)
[2016-11-13] MEDS ORDERED: SUBLIMAZE ONE (11:54)
[2016-11-13] MEDS ORDERED: XYLOCAINE 1%/ EPI 1:100,000 INFILTRATI ONE (11:55)
[2016-11-13] MEDS ORDERED: NACL 0.9% 250ML 250 ML ONE (12:07)
[2016-11-13] MEDS: HEPARIN 10,000 UNITS/10 ML ONE ×3 (12:33→12:35)
--- NOTE | 2016-11-13 12:46 | Operative Report ---
Operative Report Operative Report: EXAM: ULTRASOUND AND FLUOROSCOPIC GUIDED PLACEMENT OF TUNNELED HEMODIALYSIS CATHETER CLINICAL INDICATION: END-STAGE RENAL DISEASE REQUIRING DIALYSIS ACCESS DATE: 11/13/2016 PROCEDURE: Following an explanation of the risks, benefits and alternatives; written informed consent was obtained. The patient was brought to the injury graphic suite and placed in supine position on the examination table. Initial ultrasound evaluation of the left neck demonstrated a patent left internal jugular vein. The left neck and chest wall were prepped and draped in the usual sterile fashion. 1% lidocaine was used for anesthesia. Under ultrasound guidance, the left internal jugular vein was cannulated with a 7 cm 18-gauge needle. A 0.035 guidewire was advanced into the IVC under fluoroscopy to document intravenous positioning. An appropriate catheter exit site was chosen along the anterior left chest wall. 1% lidocaine was used for anesthesia at the catheter exit site and along the tunnel tract. A Bard 23 cm glidepath tunneled hemodialysis catheter was then tunneled antegrade from the catheter exit site to the venotomy site. Following serial dilation over the guidewire under fluoroscopy, a 16 Azeri sheath was placed over the guidewire under fluoroscopy and advanced to the proximal right atrium. The guidewire and trocar were removed and the peel-away sheath lysed to insert the dialysis catheter. The catheter was positioned with the tip in the proximal right atrium. The peel-away sheath was removed. Both ports flushed and aspirated easily and were then locked with appropriate volumes of heparin. The venotomy was closed using 4-0 Vicryl suture and Dermabond. Dermabond was also applied to the catheter exit site. Sterile dressings were then applied. The patient tolerated the procedure well. There were no immediate post procedure palpitations. A minimal amount of Versed was utilized for sedation, continuous cardiopulmonary monitoring was utilized under the guidance of radiologic nursing. IMPRESSION: Ultrasound and fluoroscopic guided placement of tunneled hemodialysis catheter via the left internal jugular vein.
--- NOTE | 2016-11-13 12:57 | Progress Note ---
Assessment and Plan Current antibiotics: Vancomycin IV (Pulse doses) 10/30, 11/07 --> Previous antibiotics: Zosyn 4.5 g IV q8h 10/30-10/31 Ceftriaxone 1 g IV q24h 10/30-10/31 Metronidazole 500 mg IV q8h 10/31-11/07 Levaquin 500 mg IV q24h 10/30-11/07 ASSESSMENT: Barbra Babin is an 85 y/o female who lives independently with HTN, type 2 DM, ESRD on maintenance HD, COPD, systolic heart failure (EF 45-50 percent), previous bowel perforation with colostomy (~ 6 years ago) who had been hospitalized at 10/21-10/24 with hypoglycemia. She had been hospitalized approximately 4 weeks earlier with worsening renal failure requiring initiation of HD (M-W-Fr) via a right chest wall PC ( inserted 10/04/16). She re- presents on 10/30 with abdominal and back pain and is found to have with non- visualization of the gallbladder on HIDA scan. 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 Cultures show MRSA bacteremia. Problem list: 1. MRSA bacteremia - 10/30:4/4 bottles + -11/06: 3/4 bottles + -Likely right chest wall permacath source. removed 11/08 -Repeat blood cultures on 11/08 NGTD -11/07 transthoracic echocardiogram showed vegetation versus fibrin sheath on the catheter 2. Biliary sepsis with acute cholecystitis - s/p open cholecystectomy - 10/31 3. Leukocytosis -2nd to above -Improving 4. ESRD -Maintenance HD -New Vas-Cath placed in right common femoral vein 11/10 5. Back pain -Etiology unclear 6. Anemia 7. Type 2 diabetes mellitus PLAN: 1. Continue vancomycin 2. Await finalization of repeat blood cultures from 11/09 NGTD) 3. If repeat blood cultures still positive will need RENETTA 4. If back pain persists or worsens a need workup for infection 5. Continued supportive measures Barrie Martinez MD [facility] Office: [phone] Subjective Date of service: 11/13/16 Principal diagnosis: Permacath related bacteremia Interval history: Seen just prior to going for vas cath placement. No new complaints. ROS: No subjective fever or chills. No nausea, vomiting or diarrhea. No shortness of breath, cough or pleuritic chest pain Objective - Exam Narrative Exam: GENERAL: Well-developed, thin female who is alert and in no acute distress. Appears somewhat chronically ill. HEAD: Normocephalic. No lesions seen. Mild by temporalis muscle wasting. EYES: Pupils are equal reactive to light and accommodation. There is no scleral icterus. Optic fundi are not examined. Bilateral arcus senilis. EARS: Normal external ears. THROAT: Oropharynx is normal with no evidence of oral candidiasis or pharyngitis. Somewhat poor dentition. NECK: Supple. No enlargement of the thyroid gland. No significant cervical lymphadenopathy. No jugular venous distention at 30. LUNGS: Clear with no adventitious sounds. CHEST: Previous right sided PermCath site with no signs of infection. HEART: Regular rate. S1 and S2 are normal. There are no murmurs, gallops, clicks or rubs heard. ABDOMEN: Soft with mild right upper quadrant tenderness without guarding or rebound. Liver and spleen are not palpably enlarged or tender. No palpable masses. Bowel sounds are normoactive. Colostomy in place with healthy mucosa and functioning normally. Right upper quadrant abdominal wound healing with no signs of infection. EXTREMITIES: No rash, peripheral lymphadenopathy, clubbing or edema. Right groin Vas-Cath that was placed earlier today. Mild tenderness over upper lumbar spine with no other objective abnormalities. : Normal external female NEUROLOGIC: No focal findings. - Constitutional Vitals: Vital Signs Temp Pulse Resp BP Pulse Ox 98.0 F 49 L 16 130/70 98 11/13/16 11:30 11/13/16 11:30 11/13/16 11:30 11/13/16 11:30 11/13/16 11:30 Temperature -Last 24 Hours Temperature 98.0 F Temperature 98.6 F Temperature 98.4 F Temperature 98.2 F Temperature 98.1 F Temperature 98.4 F Temperature 97.1 F Temperature 98.9 F - Labs CBC & Chem 7: 11/13/16 04:28 11/13/16 04:28 Labs: Abnormal lab results Microbiology 11/09/16 12:33 Peripheral/Venous Blood Culture - Preliminary NO GROWTH AFTER 24 HOURS 11/09/16 12:23 Peripheral/Venous Blood Culture - Preliminary NO GROWTH AFTER 24 HOURS 11/08/16 13:15 Peripheral/Venous Blood Culture - Preliminary NO GROWTH AFTER 48 HOURS 11/08/16 Unknown Vascular Cath Catheter Tip Culture - < 15 colinies Staph aureus 11/06/16 Unknown Peripheral/Venous Blood Culture - Final Methicillin Resist S. Aureus (1/2 bottles) 11/06/16 Unknown Peripheral/Venous Blood Culture - Preliminary Methicillin Resist S. Aureus (2/2 bottles) 10/30/16 01:13 Peripheral/Venous Blood Culture - Final Methicillin Resist S. Aureus (2/2 bottles) 10/30/16 01:13 Peripheral/Venous Blood Culture - Final Methicillin Resist S. Aureus (2/2 bottles)
[2016-11-13] MEDS: COREG PO SCH (13:29)
[2016-11-13] MEDS: PROTONIX PO SCH (13:30)
[2016-11-13] MEDS: LOVENOX SUB-Q SCH (13:31)
--- NOTE | 2016-11-13 13:43 | Progress Note ---
Assessment and Plan Assessment and plan: MRSA bacteremia - She is on IV vancomycin - blood cultures from 11/08/16 were negative - Vasc cath replaced today - Echocardiography was done - ID Consult appreciated ( need ID recommendation duration and type of antibiotics on discharge) - Contact precaution Cholecystitis s/p cholecystectomy -Abdominal pain is getting better - CT was yesterday and was negative End stage renal disease on hemodialysis - Vasc cath plced today Hypertension - Controlled DM2 - Continue current management DVT prophylaxis - on lovenox Disposition - possible D/C tomorrow after discussing about O/P antibiotics History Interval history: Patient was seen and evaluated this morning. She denied fevers but admitted for chills. Patient was nothing by mouth. Hospitalist Physical - Physical exam Narrative exam: Not in cardiopulmonary distress. The patient appeared well nourished and normally developed. Vital signs as documented. Head exam is unremarkable. No scleral icterus . Neck is without jugular venous distension, thyromegaly, or carotid bruits. Lungs are clear to auscultation. Cardiac exam reveals regular rate and Rhythm. First and second heart sounds normal. No murmurs, rubs or gallops. Abdominal has colostomy bag on the left lower abdomen. Tenderness on the right flank area. CALL CENTER COORDINATOR: Alert and oriented 3. No focal weakness. - Constitutional Vitals: Temp Pulse Resp BP Pulse Ox 98.0 F 49 L 16 130/70 98 11/13/16 11:30 11/13/16 11:30 11/13/16 11:30 11/13/16 11:30 11/13/16 11:30 General appearance: Present: no acute distress, well-nourished Results - Labs CBC & Chem 7: 11/13/16 04:28 11/13/16 04:28 Labs: Laboratory Last Values WBC 12.8 K/mm3 (4.5-11.0) H 11/13/16 04:28 RBC 3.15 M/mm3 (3.65-5.03) L 11/13/16 04:28 Hgb 8.3 gm/dl (10.1-14.3) L 11/13/16 04:28 Hct 26.2 % (30.3-42.9) L 11/13/16 04:28 MCV 85 fl (79-97) 11/13/16 04:28 MCH 26 pg (28-32) L 11/13/16 04:28 MCHC 32 % (30-34) 11/13/16 04:28 RDW 18.5 % (13.2-15.2) H 11/13/16 04:28 Plt Count 532 K/mm3 (140-440) H 11/13/16 04:28 Lymph % (Auto) 8.1 % (13.4-35.0) L 11/13/16 04:28 [place] % (Auto) 9.7 % (0.0-7.3) H 11/13/16 04:28 Eos % (Auto) 1.3 % (0.0-4.3) 11/13/16 04:28 Baso % (Auto) 0.8 % (0.0-1.8) 11/13/16 04:28 Lymph # 1.0 K/mm3 (1.2-5.4) L 11/13/16 04:28 [place] # 1.2 K/mm3 (0.0-0.8) H 11/13/16 04:28 Eos # 0.2 K/mm3 (0.0-0.4) 11/13/16 04:28 Baso # 0.1 K/mm3 (0.0-0.1) 11/13/16 04:28 Add Manual Diff Complete 11/10/16 04:38 Total Counted 100 11/10/16 04:38 Seg Neutrophils % 80.1 % (40.0-70.0) H 11/13/16 04:28 Seg Neuts % (Manual) 68.0 % (40.0-70.0) 11/10/16 04:38 Band Neutrophils % 6.0 % 11/10/16 04:38 Lymphocytes % (Manual) 12.0 % (13.4-35.0) L 11/10/16 04:38 Reactive Lymphs % (Man) 0 % 11/10/16 04:38 Monocytes % (Manual) 13.0 % (0.0-7.3) H 11/10/16 04:38 Eosinophils % (Manual) 1.0 % (0.0-4.3) 11/10/16 04:38 Basophils % (Manual) 0 % (0.0-1.8) 11/08/16 04:46 Metamyelocytes % 0 % 11/10/16 04:38 Myelocytes % 0 % 11/10/16 04:38 Promyelocytes % 0 % 11/10/16 04:38 Blast Cells % 0 % 11/10/16 04:38 Nucleated RBC % Not Reportable 11/10/16 04:38 Seg Neutrophils # 10.3 K/mm3 (1.8-7.7) H 11/13/16 04:28 Seg Neutrophils # Man 10.2 K/mm3 (1.8-7.7) H 11/10/16 04:38 Band Neutrophils # 0.9 K/mm3 11/10/16 04:38 Lymphocytes # (Manual) 1.8 K/mm3 (1.2-5.4) 11/10/16 04:38 Abs React Lymphs (Man) 0.0 K/mm3 11/10/16 04:38 Monocytes # (Manual) 2.0 K/mm3 (0.0-0.8) H 11/10/16 04:38 Eosinophils # (Manual) 0.2 K/mm3 (0.0-0.4) 11/10/16 04:38 Basophils # (Manual) 0.0 K/mm3 (0.0-0.1) 11/10/16 04:38 Metamyelocytes # 0.0 K/mm3 11/10/16 04:38 Myelocytes # 0.0 K/mm3 11/10/16 04:38 Promyelocytes # 0.0 K/mm3 11/10/16 04:38 Blast Cells # 0.0 K/mm3 11/10/16 04:38 WBC Morphology Not Reportable 11/10/16 04:38 Hypersegmented Neuts Not Reportable 11/10/16 04:38 Hyposegmented Neuts Not Reportable 11/10/16 04:38 Hypogranular Neuts Not Reportable 11/10/16 04:38 Smudge Cells Not Reportable 11/10/16 04:38 Toxic Granulation Not Reportable 11/10/16 04:38 Toxic Vacuolation Not Reportable 11/10/16 04:38 Dohle Bodies Not Reportable 11/10/16 04:38 Pelger-Huet Anomaly Not Reportable 11/10/16 04:38 Aida Rods Not Reportable 11/10/16 04:38 Platelet Estimate Consistent w auto 11/10/16 04:38 Clumped Platelets Not Reportable 11/10/16 04:38 Plt Clumps, EDTA Not Reportable 11/10/16 04:38 Large Platelets Not Reportable 11/10/16 04:38 Giant Platelets Not Reportable 11/10/16 04:38 Platelet Satelliting Not Reportable 11/10/16 04:38 Plt Morphology Comment Not Reportable 11/10/16 04:38 RBC Morphology Not Reportable 11/10/16 04:38 Dimorphic RBCs Not Reportable 11/10/16 04:38 Polychromasia Not Reportable 11/10/16 04:38 Hypochromasia 1+ 11/10/16 04:38 Poikilocytosis Not Reportable 11/10/16 04:38 Anisocytosis 1+ 11/10/16 04:38 Microcytosis Not Reportable 11/10/16 04:38 Macrocytosis Not Reportable 11/10/16 04:38 Spherocytes Not Reportable 11/10/16 04:38 Pappenheimer Bodies Not Reportable 11/10/16 04:38 Sickle Cells Not Reportable 11/10/16 04:38 Target Cells Not Reportable 11/10/16 04:38 Tear Drop Cells Not Reportable 11/10/16 04:38 Ovalocytes Not Reportable 11/10/16 04:38 Helmet Cells Not Reportable 11/10/16 04:38 Munoz-Export Bodies Not Reportable 11/10/16 04:38 [place] Rings Not Reportable 11/10/16 04:38 [place] Cells Not Reportable 11/10/16 04:38 Bite Cells Not Reportable 11/10/16 04:38 Crenated Cell Not Reportable 11/10/16 04:38 Elliptocytes Not Reportable 11/10/16 04:38 Acanthocytes (Spur) Not Reportable 11/10/16 04:38 Rouleaux Not Reportable 11/10/16 04:38 Hemoglobin C Crystals Not Reportable 11/10/16 04:38 Schistocytes Not Reportable 11/10/16 04:38 Malaria parasites Not Reportable 11/10/16 04:38 Jalil Bodies Not Reportable 11/10/16 04:38 Hem Pathologist Commnt No 11/10/16 04:38 POC ABG pH 7.488 (7.35-7.45) H 11/01/16 05:56 POC ABG pCO2 31.0 (35-45) L 11/01/16 05:56 POC ABG pO2 106 (80-105) H 11/01/16 05:56 POC ABG HCO3 23.5 11/01/16 05:56 POC ABG Total CO2 24 11/01/16 05:56 POC ABG O2 Sat 99 11/01/16 05:56 POC ABG Base Excess 0 11/01/16 05:56 FiO2 40 % 11/01/16 05:56 Sodium 130 mmol/L (137-145) L 11/13/16 04:28 Potassium 4.4 mmol/L (3.6-5.0) 11/13/16 04:28 Chloride 89.6 mmol/L (98-107) L 11/13/16 04:28 Carbon Dioxide 25 mmol/L (22-30) 11/13/16 04:28 Anion Gap 20 mmol/L 11/13/16 04:28 BUN 33 mg/dL (7-17) H 11/13/16 04:28 Creatinine 5.4 mg/dL (0.7-1.2) H 11/13/16 04:28 Estimated GFR 9 ml/min 11/13/16 04:28 BUN/Creatinine Ratio 6.11 % 11/13/16 04:28 Glucose 91 mg/dL (65-100) 11/13/16 04:28 POC Glucose 113 (70-105) H 11/13/16 07:45 Calcium 8.3 mg/dL (8.4-10.2) L 11/13/16 04:28 Phosphorus 3.1 mg/dL (2.5-4.5) 11/02/16 04:36 Magnesium 1.7 mg/dL (1.7-2.3) 11/02/16 04:36 Total Bilirubin 0.6 mg/dL (0.1-1.2) 11/01/16 22:37 AST 44 units/L (5-40) H 11/01/16 22:37 ALT 18 units/L (7-56) 11/01/16 22:37 Alkaline Phosphatase 109 units/L (35-129) 11/01/16 22:37 Total Protein 7.2 g/dL (6.3-8.2) 11/01/16 22:37 Albumin 2.4 g/dL (3.9-5) L 11/01/16 22:37 Albumin/Globulin Ratio 0.5 % 11/01/16 22:37 Urine Color Yellow (Yellow) 10/30/16 00:30 Urine Turbidity Slightly-cloudy (Clear) 10/30/16 00:30 Urine pH 5.0 (5.0-7.0) 10/30/16 00:30 Ur Specific [place] 1.015 (1.003-1.030) 10/30/16 00:30 Urine Protein 100 mg/dl mg/dL (Negative) 10/30/16 00:30 Urine Glucose (UA) Neg mg/dL (Negative) 10/30/16 00:30 Urine Ketones Tr mg/dL (Negative) 10/30/16 00:30 Urine Blood Neg (Negative) 10/30/16 00:30 Urine Nitrite Neg (Negative) 10/30/16 00:30 Urine Bilirubin Neg (Negative) 10/30/16 00:30 Urine Urobilinogen < 2.0 mg/dL (<2.0) 10/30/16 00:30 Ur Leukocyte Esterase Neg (Negative) 10/30/16 00:30 Urine WBC (Auto) 10.0 /HPF (0.0-6.0) H 10/30/16 00:30 Urine RBC (Auto) 2.0 /HPF (0.0-6.0) 10/30/16 00:30 U Epithel Cells (Auto) 6.0 /HPF (0-13.0) 10/30/16 00:30 Amorphous Crystals 1+ 10/30/16 00:30 Hyaline Casts 16 /LPF 10/30/16 00:30 Granular Casts 4 /LPF 10/30/16 00:30 Urine Mucus Few /HPF 10/30/16 00:30 Random Vancomycin 21.5 ug/mL (0-40.0) 11/13/16 04:28 Blood Type B POSITIVE 11/12/16 11:30 Antibody Screen Negative 11/12/16 11:30 Crossmatch See Detail 11/12/16 11:30
[2016-11-13] MEDS: MORPHINE IV PRN (18:35)
[2016-11-13] MEDS ORDERED: VANCOMYCIN/NS 500 MG/100 ML 500 MG/100 ML BAG IV ONE (20:00)
[2016-11-14] MEDS: HEPARIN IV PRN (00:27)
[2016-11-14] MEDS: NOVOLOG SUB-Q SCH ×3 (00:32→23:12)
[2016-11-14] MEDS: COREG PO SCH ×3 (00:55→23:09)
[2016-11-14 05:54] LABS: Basophils % (Auto) 0.9 % (0.0-1.8); Eosinophils % (Auto) 1.2 % (0.0-4.3); Hematocrit 25.5 % (30.3-42.9); Hemoglobin 8.2 gm/dl (10.1-14.3); Mean Corpuscular HGB Conc 32 % (30-34); Mean Corpuscular Hemoglobin 27 pg (28-32); Mean Corpuscular Volume 84 fl (79-97); Platelet Count 417 K/mm3 (140-440); Red Blood Count 3.03 M/mm3 (3.65-5.03); Red Cell Distribution Width 18.8 % (13.2-15.2); White Blood Count 12.9 K/mm3 (4.5-11.0)
[2016-11-14 06:12] LABS: BUN/Creatinine Ratio 4.19; Calcium 7.9 mg/dL (8.4-10.2); Chloride 93.5 mmol/L (98-107); Potassium 4.1 mmol/L (3.6-5.0)
--- NOTE | 2016-11-14 10:39 | Progress Note ---
Assessment and Plan Current antibiotics: Vancomycin IV (Pulse doses) 10/30, 11/07 --> Previous antibiotics: Zosyn 4.5 g IV q8h 10/30-10/31 Ceftriaxone 1 g IV q24h 10/30-10/31 Metronidazole 500 mg IV q8h 10/31-11/07 Levaquin 500 mg IV q24h 10/30-11/07 ASSESSMENT: Barbra Babin is an 85 y/o female who lives independently with HTN, type 2 DM, ESRD on maintenance HD, COPD, systolic heart failure (EF 45-50 percent), previous bowel perforation with colostomy (~ 6 years ago) who had been hospitalized at 10/21-10/24 with hypoglycemia. She had been hospitalized approximately 4 weeks earlier with worsening renal failure requiring initiation of HD (M-W-Fr) via a right chest wall PC ( inserted 10/04/16). She re- presents on 10/30 with abdominal and back pain and is found to have with non- visualization of the gallbladder on HIDA scan. 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 Cultures show MRSA bacteremia. Problem list: 1. MRSA bacteremia - 10/30:4/4 bottles + -11/06: 3/4 bottles + -Likely right chest wall permacath source. removed 11/08 -Repeat blood cultures on 11/08 NGTD -11/07 transthoracic echocardiogram showed vegetation versus fibrin sheath on the catheter 2. Biliary sepsis with acute cholecystitis - s/p open cholecystectomy - 10/31 3. Leukocytosis -2nd to above -Improving 4. ESRD -Maintenance HD -New Vas-Cath placed in right common femoral vein 11/10 5. Back pain -Etiology unclear 6. Anemia 7. Type 2 diabetes mellitus PLAN: 1. Continue vancomycin 2. Await finalization of repeat blood cultures from 11/09 NGTD) 3. If repeat blood cultures still positive will need RENETTA 4. If back pain persists or worsens a need workup for infection 5. Continued supportive measures Barrie Martinez MD [facility] Office: [phone] Subjective Date of service: 11/14/16 Principal diagnosis: Permacath related bacteremia Interval history: No complaints at present. ROS: No subjective fever or chills. No nausea, vomiting or diarrhea. No shortness of breath, cough or pleuritic chest pain Objective - Exam Narrative Exam: GENERAL: Well-developed, thin female who is alert and in no acute distress. Appears somewhat chronically ill. HEAD: Normocephalic. No lesions seen. Mild by temporalis muscle wasting. EYES: Pupils are equal reactive to light and accommodation. There is no scleral icterus. Optic fundi are not examined. Bilateral arcus senilis. EARS: Normal external ears. THROAT: Oropharynx is normal with no evidence of oral candidiasis or pharyngitis. Somewhat poor dentition. NECK: Supple. No enlargement of the thyroid gland. No significant cervical lymphadenopathy. No jugular venous distention at 30. LUNGS: Clear with no adventitious sounds. CHEST: Previous right sided PermCath site with no signs of infection. HEART: Regular rate. S1 and S2 are normal. There are no murmurs, gallops, clicks or rubs heard. ABDOMEN: Soft with mild right upper quadrant tenderness without guarding or rebound. Liver and spleen are not palpably enlarged or tender. No palpable masses. Bowel sounds are normoactive. Colostomy in place with healthy mucosa and functioning normally. Right upper quadrant abdominal wound healing with no signs of infection. EXTREMITIES: No rash, peripheral lymphadenopathy, clubbing or edema. Right groin Vas-Cath that was placed earlier today. Mild tenderness over upper lumbar spine with no other objective abnormalities. : Normal external female NEUROLOGIC: No focal findings. - Constitutional Vitals: Vital Signs Temp Pulse Resp BP Pulse Ox 97.7 F 90 18 131/62 96 11/14/16 07:30 11/14/16 07:30 11/14/16 07:30 11/14/16 07:30 11/14/16 07:30 Temperature -Last 24 Hours Temperature 97.7 F Temperature 97.3 F Temperature 98.3 F Temperature 98.3 F Temperature 97.6 F Temperature 98.3 F Temperature 97.0 F Temperature 98.0 F - Labs CBC & Chem 7: 11/14/16 05:00 11/14/16 05:00 Labs: Abnormal lab results Microbiology 11/09/16 12:33 Peripheral/Venous Blood Culture - Preliminary NO GROWTH AFTER 24 HOURS 11/09/16 12:23 Peripheral/Venous Blood Culture - Preliminary NO GROWTH AFTER 24 HOURS 11/08/16 13:15 Peripheral/Venous Blood Culture - Preliminary NO GROWTH AFTER 48 HOURS 11/08/16 Unknown Vascular Cath Catheter Tip Culture - < 15 colinies Staph aureus 11/06/16 Unknown Peripheral/Venous Blood Culture - Final Methicillin Resist S. Aureus (1/2 bottles) 11/06/16 Unknown Peripheral/Venous Blood Culture - Preliminary Methicillin Resist S. Aureus (2/2 bottles) 10/30/16 01:13 Peripheral/Venous Blood Culture - Final Methicillin Resist S. Aureus (2/2 bottles) 10/30/16 01:13 Peripheral/Venous Blood Culture - Final Methicillin Resist S. Aureus (2/2 bottles)
[2016-11-14] MEDS: LOVENOX SUB-Q SCH (10:47)
[2016-11-14] MEDS: PROTONIX PO SCH (10:47)
--- NOTE | 2016-11-14 14:10 | Progress Note ---
Assessment and Plan 85 y/o female with acute respiratory failure secondary to sepsis from cholecystitis status post exlap. 1. Wean supplemental O2 as tolerated 2. Will see as needed Subjective Date of service: 11/14/16 Principal diagnosis: Permacath related bacteremia Interval history: No acute events. Asleep on room air. Objective Vital Signs - 12hr 11/14/16 11/14/16 11/14/16 05:16 07:30 10:00 Temperature 97.3 F L 97.7 F Pulse Rate Pulse Rate [ 90 Left Radial] Pulse Rate [ 92 H 90 90 Right Radial] Respiratory 18 18 20 Rate Blood Pressure Blood Pressure [Left Arm] Blood Pressure 148/68 131/62 [Right Radial Artery] O2 Sat by Pulse 94 96 96 Oximetry 11/14/16 11/14/16 10:46 11:50 Temperature 99.2 F Pulse Rate 90 Pulse Rate [ 96 H Left Radial] Pulse Rate [ Right Radial] Respiratory 16 Rate Blood Pressure 131/62 Blood Pressure 132/66 [Left Arm] Blood Pressure [Right Radial Artery] O2 Sat by Pulse Oximetry Constitutional: no acute distress, alert Eyes: non-icteric ENT: oropharynx moist Neck: supple Effort: normal Ascultation: Bilateral: clear Percussion: Bilateral: not dull Cardiovascular: regular rate and rhythm (no murmur noted) Gastrointestinal: normoactive bowel sounds, soft, non-distended, other (mild epigastric tenderness) Extremities: no cyanosis, no edema, pink and warm Neurologic: normal mental status, non-focal exam, pupils equal and round, CN II- XII normal Psychiatric: mood appropriate, affect normal CBC and BMP: 11/14/16 05:00 11/14/16 05:00 ABG, PT/INR, D-dimer: ABG POC ABG pH 7.488 (7.35-7.45) H 11/01/16 05:56 POC ABG pCO2 31.0 (35-45) L 11/01/16 05:56 POC ABG pO2 106 (80-105) H 11/01/16 05:56 POC ABG HCO3 23.5 11/01/16 05:56 POC ABG Total CO2 24 11/01/16 05:56 POC ABG O2 Sat 99 11/01/16 05:56 Abnormal lab findings: Abnormal Labs 10/30/16 10/30/16 10/30/16 09:31 09:31 23:33 WBC 19.0 H RBC 3.11 L Hgb 7.9 L Hct 26.5 L MCH 25 L MCHC RDW 18.2 H Plt Count 460 H Lymph % (Auto) [place] % (Auto) Lymph # [place] # Seg Neutrophils % Seg Neuts % (Manual) 87.0 H Lymphocytes % (Manual) 3.0 L Monocytes % (Manual) Seg Neutrophils # Seg Neutrophils # Man 16.5 H Lymphocytes # (Manual) 0.6 L Monocytes # (Manual) 1.0 H Basophils # (Manual) 0.2 H POC ABG pH POC ABG pCO2 POC ABG pO2 Sodium Potassium Chloride 97.4 L Carbon Dioxide BUN 61 H Creatinine 7.5 H Glucose 176 H POC Glucose 178 H Calcium 8.0 L AST Albumin Crossmatch 10/31/16 10/31/16 10/31/16 06:30 06:30 07:45 WBC 20.6 H RBC 3.25 L Hgb 8.2 L Hct 27.7 L MCH 25 L MCHC RDW 18.5 H Plt Count Lymph % (Auto) [place] % (Auto) Lymph # [place] # Seg Neutrophils % Seg Neuts % (Manual) 90.0 H Lymphocytes % (Manual) 3.0 L Monocytes % (Manual) Seg Neutrophils # Seg Neutrophils # Man 18.5 H Lymphocytes # (Manual) 0.6 L Monocytes # (Manual) Basophils # (Manual) POC ABG pH POC ABG pCO2 POC ABG pO2 Sodium Potassium Chloride Carbon Dioxide BUN 32 H Creatinine 4.7 H Glucose 161 H POC Glucose 164 H Calcium 7.7 L AST Albumin 2.5 L Crossmatch 10/31/16 10/31/16 10/31/16 11:15 19:00 21:55 WBC RBC Hgb Hct MCH MCHC RDW Plt Count Lymph % (Auto) [place] % (Auto) Lymph # [place] # Seg Neutrophils % Seg Neuts % (Manual) Lymphocytes % (Manual) Monocytes % (Manual) Seg Neutrophils # Seg Neutrophils # Man Lymphocytes # (Manual) Monocytes # (Manual) Basophils # (Manual) POC ABG pH 7.579 H POC ABG pCO2 29.6 L POC ABG pO2 304 H Sodium Potassium Chloride Carbon Dioxide BUN Creatinine Glucose POC Glucose 195 H 160 H Calcium AST Albumin Crossmatch 11/01/16 11/01/16 11/01/16 00:50 02:06 05:56 WBC RBC Hgb Hct MCH MCHC RDW Plt Count Lymph % (Auto) [place] % (Auto) Lymph # [place] # Seg Neutrophils % Seg Neuts % (Manual) Lymphocytes % (Manual) Monocytes % (Manual) Seg Neutrophils # Seg Neutrophils # Man Lymphocytes # (Manual) Monocytes # (Manual) Basophils # (Manual) POC ABG pH 7.488 H POC ABG pCO2 31.0 L POC ABG pO2 106 H Sodium Potassium Chloride Carbon Dioxide 20 L BUN 45 H Creatinine 6.0 H Glucose 159 H POC Glucose 194 H Calcium 7.9 L AST Albumin Crossmatch 11/01/16 11/01/16 11/01/16 08:01 11:32 16:21 WBC RBC Hgb Hct MCH MCHC RDW Plt Count Lymph % (Auto) [place] % (Auto) Lymph # [place] # Seg Neutrophils % Seg Neuts % (Manual) Lymphocytes % (Manual) Monocytes % (Manual) Seg Neutrophils # Seg Neutrophils # Man Lymphocytes # (Manual) Monocytes # (Manual) Basophils # (Manual) POC ABG pH POC ABG pCO2 POC ABG pO2 Sodium Potassium Chloride Carbon Dioxide BUN Creatinine Glucose POC Glucose 183 H 172 H 189 H Calcium AST Albumin Crossmatch 11/01/16 11/01/16 11/02/16 18:51 22:37 00:10 WBC 23.7 H RBC 3.24 L Hgb 8.3 L Hct 27.4 L MCH 26 L MCHC RDW 18.6 H Plt Count Lymph % (Auto) [place] % (Auto) Lymph # [place] # Seg Neutrophils % Seg Neuts % (Manual) 91.0 H Lymphocytes % (Manual) 1.0 L Monocytes % (Manual) Seg Neutrophils # Seg Neutrophils # Man 21.6 H Lymphocytes # (Manual) 0.2 L Monocytes # (Manual) Basophils # (Manual) POC ABG pH POC ABG pCO2 POC ABG pO2 Sodium Potassium Chloride 96.9 L Carbon Dioxide BUN Creatinine 2.5 H D Glucose 141 H POC Glucose 162 H Calcium 8.2 L AST 44 H Albumin 2.4 L Crossmatch 11/02/16 11/02/16 11/02/16 04:36 04:36 07:46 WBC 23.3 H RBC 3.23 L Hgb 8.0 L Hct 27.6 L MCH 25 L MCHC 29 L RDW 18.6 H Plt Count Lymph % (Auto) [place] % (Auto) Lymph # [place] # Seg Neutrophils % Seg Neuts % (Manual) Lymphocytes % (Manual) 6.0 L Monocytes % (Manual) Seg Neutrophils # Seg Neutrophils # Man 16.1 H Lymphocytes # (Manual) Monocytes # (Manual) 1.4 H Basophils # (Manual) POC ABG pH POC ABG pCO2 POC ABG pO2 Sodium Potassium 3.5 L Chloride 94.2 L Carbon Dioxide BUN 20 H Creatinine 2.8 H Glucose 136 H POC Glucose 154 H Calcium AST Albumin Crossmatch 11/02/16 11/02/16 11/03/16 11:58 15:33 00:23 WBC RBC Hgb Hct MCH MCHC RDW Plt Count Lymph % (Auto) [place] % (Auto) Lymph # [place] # Seg Neutrophils % Seg Neuts % (Manual) Lymphocytes % (Manual) Monocytes % (Manual) Seg Neutrophils # Seg Neutrophils # Man Lymphocytes # (Manual) Monocytes # (Manual) Basophils # (Manual) POC ABG pH POC ABG pCO2 POC ABG pO2 Sodium Potassium Chloride Carbon Dioxide BUN Creatinine Glucose POC Glucose 163 H 147 H 134 H Calcium AST Albumin Crossmatch 11/03/16 11/04/16 11/04/16 07:19 00:06 07:50 WBC RBC Hgb Hct MCH MCHC RDW Plt Count Lymph % (Auto) [place] % (Auto) Lymph # [place] # Seg Neutrophils % Seg Neuts % (Manual) Lymphocytes % (Manual) Monocytes % (Manual) Seg Neutrophils # Seg Neutrophils # Man Lymphocytes # (Manual) Monocytes # (Manual) Basophils # (Manual) POC ABG pH POC ABG pCO2 POC ABG pO2 Sodium Potassium Chloride Carbon Dioxide BUN Creatinine Glucose POC Glucose 113 H 161 H 198 H Calcium AST Albumin Crossmatch 11/04/16 11/04/16 11/04/16 11:11 16:07 21:50 WBC RBC Hgb Hct MCH MCHC RDW Plt Count Lymph % (Auto) [place] % (Auto) Lymph # [place] # Seg Neutrophils % Seg Neuts % (Manual) Lymphocytes % (Manual) Monocytes % (Manual) Seg Neutrophils # Seg Neutrophils # Man Lymphocytes # (Manual) Monocytes # (Manual) Basophils # (Manual) POC ABG pH POC ABG pCO2 POC ABG pO2 Sodium Potassium Chloride Carbon Dioxide BUN Creatinine Glucose POC Glucose 205 H 251 H 136 H Calcium AST Albumin Crossmatch 11/05/16 11/05/1611/05/17 03:18 03:18 07:14 WBC 22.1 H RBC 2.87 L Hgb 7.3 L Hct 26.2 L MCH 25 L MCHC 28 L RDW 19.3 H Plt Count Lymph % (Auto) [place] % (Auto) Lymph # [place] # Seg Neutrophils % Seg Neuts % (Manual) Lymphocytes % (Manual) Monocytes % (Manual) Seg Neutrophils # Seg Neutrophils # Man Lymphocytes # (Manual) Monocytes # (Manual) Basophils # (Manual) POC ABG pH POC ABG pCO2 POC ABG pO2 Sodium 135 L Potassium Chloride 94.8 L Carbon Dioxide BUN 28 H Creatinine 4.5 H D Glucose 128 H POC Glucose 114 H Calcium AST Albumin Crossmatch 11/05/16 11/05/16 11/06/16 11:46 16:27 22:01 WBC RBC Hgb Hct MCH MCHC RDW Plt Count Lymph % (Auto) [place] % (Auto) Lymph # [place] # Seg Neutrophils % Seg Neuts % (Manual) Lymphocytes % (Manual) Monocytes % (Manual) Seg Neutrophils # Seg Neutrophils # Man Lymphocytes # (Manual) Monocytes # (Manual) Basophils # (Manual) POC ABG pH POC ABG pCO2 POC ABG pO2 Sodium Potassium Chloride Carbon Dioxide BUN Creatinine Glucose POC Glucose 219 H 217 H 183 H Calcium AST Albumin Crossmatch 11/07/16 11/07/16 11/07/16 07:34 12:20 17:59 WBC RBC Hgb Hct MCH MCHC RDW Plt Count Lymph % (Auto) [place] % (Auto) Lymph # [place] # Seg Neutrophils % Seg Neuts % (Manual) Lymphocytes % (Manual) Monocytes % (Manual) Seg Neutrophils # Seg Neutrophils # Man Lymphocytes # (Manual) Monocytes # (Manual) Basophils # (Manual) POC ABG pH POC ABG pCO2 POC ABG pO2 Sodium Potassium Chloride Carbon Dioxide BUN Creatinine Glucose POC Glucose 137 H 263 H 155 H Calcium AST Albumin Crossmatch 11/07/16 11/08/16 11/08/16 21:25 04:46 04:46 WBC 15.8 H RBC 2.70 L Hgb 7.1 L Hct 23.0 L MCH 26 L MCHC RDW 18.9 H Plt Count Lymph % (Auto) [place] % (Auto) Lymph # [place] # Seg Neutrophils % Seg Neuts % (Manual) 83.0 H Lymphocytes % (Manual) 6.0 L Monocytes % (Manual) 8.0 H Seg Neutrophils # Seg Neutrophils # Man 13.1 H Lymphocytes # (Manual) 0.9 L Monocytes # (Manual) 1.3 H Basophils # (Manual) POC ABG pH POC ABG pCO2 POC ABG pO2 Sodium 132 L Potassium Chloride 93.0 L Carbon Dioxide BUN 22 H Creatinine 4.6 H Glucose POC Glucose 308 H Calcium AST Albumin Crossmatch 11/08/16 11/08/16 11/09/16 18:05 22:36 04:56 WBC 17.8 H RBC 2.64 L Hgb 6.9 L Hct 22.6 L MCH 26 L MCHC RDW 18.9 H Plt Count Lymph % (Auto) 8.9 L [place] % (Auto) 11.2 H Lymph # [place] # 2.0 H Seg Neutrophils % 79.1 H Seg Neuts % (Manual) Lymphocytes % (Manual) Monocytes % (Manual) Seg Neutrophils # 14.1 H Seg Neutrophils # Man Lymphocytes # (Manual) Monocytes # (Manual) Basophils # (Manual) POC ABG pH POC ABG pCO2 POC ABG pO2 Sodium Potassium Chloride Carbon Dioxide BUN Creatinine Glucose POC Glucose 204 H 137 H Calcium AST Albumin Crossmatch 11/09/16 11/09/16 11/09/16 04:56 07:39 11:24 WBC RBC Hgb Hct MCH MCHC RDW Plt Count Lymph % (Auto) [place] % (Auto) Lymph # [place] # Seg Neutrophils % Seg Neuts % (Manual) Lymphocytes % (Manual) Monocytes % (Manual) Seg Neutrophils # Seg Neutrophils # Man Lymphocytes # (Manual) Monocytes # (Manual) Basophils # (Manual) POC ABG pH POC ABG pCO2 POC ABG pO2 Sodium 132 L Potassium Chloride 94.0 L Carbon Dioxide BUN Creatinine 3.0 H Glucose 118 H POC Glucose 134 H 287 H Calcium AST Albumin Crossmatch 11/09/16 11/09/16 11/10/16 16:16 22:24 04:38 WBC 15.0 H RBC 2.80 L Hgb 7.3 L Hct 23.8 L MCH 26 L MCHC RDW 19.9 H Plt Count Lymph % (Auto) [place] % (Auto) Lymph # [place] # Seg Neutrophils % Seg Neuts % (Manual) Lymphocytes % (Manual) 12.0 L Monocytes % (Manual) 13.0 H Seg Neutrophils # Seg Neutrophils # Man 10.2 H Lymphocytes # (Manual) Monocytes # (Manual) 2.0 H Basophils # (Manual) POC ABG pH POC ABG pCO2 POC ABG pO2 Sodium Potassium Chloride Carbon Dioxide BUN Creatinine Glucose POC Glucose 336 H 127 H Calcium AST Albumin Crossmatch 11/10/16 11/10/16 11/10/16 04:38 07:23 15:58 WBC RBC Hgb Hct MCH MCHC RDW Plt Count Lymph % (Auto) [place] % (Auto) Lymph # [place] # Seg Neutrophils % Seg Neuts % (Manual) Lymphocytes % (Manual) Monocytes % (Manual) Seg Neutrophils # Seg Neutrophils # Man Lymphocytes # (Manual) Monocytes # (Manual) Basophils # (Manual) POC ABG pH POC ABG pCO2 POC ABG pO2 Sodium 133 L Potassium Chloride 94.2 L Carbon Dioxide BUN Creatinine 4.5 H Glucose 117 H POC Glucose 155 H 219 H Calcium AST Albumin Crossmatch 11/10/16 11/11/16 11/11/16 21:39 04:36 04:36 WBC 15.0 H RBC 2.67 L Hgb 6.9 L Hct 22.7 L MCH 26 L MCHC RDW 20.0 H Plt Count 456 H Lymph % (Auto) 8.6 L [place] % (Auto) 10.6 H Lymph # [place] # 1.6 H Seg Neutrophils % 79.6 H Seg Neuts % (Manual) Lymphocytes % (Manual) Monocytes % (Manual) Seg Neutrophils # 12.0 H Seg Neutrophils # Man Lymphocytes # (Manual) Monocytes # (Manual) Basophils # (Manual) POC ABG pH POC ABG pCO2 POC ABG pO2 Sodium Potassium Chloride 96.0 L Carbon Dioxide BUN Creatinine 3.0 H Glucose 147 H POC Glucose 225 H Calcium 8.2 L AST Albumin Crossmatch 11/11/16 11/11/16 11/11/16 07:50 11:50 16:41 WBC RBC Hgb Hct MCH MCHC RDW Plt Count Lymph % (Auto) [place] % (Auto) Lymph # [place] # Seg Neutrophils % Seg Neuts % (Manual) Lymphocytes % (Manual) Monocytes % (Manual) Seg Neutrophils # Seg Neutrophils # Man Lymphocytes # (Manual) Monocytes # (Manual) Basophils # (Manual) POC ABG pH POC ABG pCO2 POC ABG pO2 Sodium Potassium Chloride Carbon Dioxide BUN Creatinine Glucose POC Glucose 160 H 159 H 288 H Calcium AST Albumin Crossmatch 11/11/16 11/12/1617 21:46 05:38 05:38 WBC 18.5 H RBC 2.60 L Hgb 6.7 L Hct 22.7 L MCH 26 L MCHC RDW 21.0 H Plt Count 514 H Lymph % (Auto) [place] % (Auto) Lymph # [place] # Seg Neutrophils % Seg Neuts % (Manual) Lymphocytes % (Manual) Monocytes % (Manual) Seg Neutrophils # Seg Neutrophils # Man Lymphocytes # (Manual) Monocytes # (Manual) Basophils # (Manual) POC ABG pH POC ABG pCO2 POC ABG pO2 Sodium 132 L Potassium Chloride 93.8 L Carbon Dioxide BUN 26 H Creatinine 5.1 H D Glucose 117 H POC Glucose 367 H Calcium 8.3 L AST Albumin Crossmatch 11/12/16 11/12/16 11/12/16 07:56 11:30 16:56 WBC RBC Hgb Hct MCH MCHC RDW Plt Count Lymph % (Auto) [place] % (Auto) Lymph # [place] # Seg Neutrophils % Seg Neuts % (Manual) Lymphocytes % (Manual) Monocytes % (Manual) Seg Neutrophils # Seg Neutrophils # Man Lymphocytes # (Manual) Monocytes # (Manual) Basophils # (Manual) POC ABG pH POC ABG pCO2 POC ABG pO2 Sodium Potassium Chloride Carbon Dioxide BUN Creatinine Glucose POC Glucose 152 H 220 H Calcium AST Albumin Crossmatch See Detail 11/12/16 11/13/16 11/13/16 22:18 04:28 04:28 WBC 12.8 H RBC 3.15 L Hgb 8.3 L Hct 26.2 L MCH 26 L MCHC RDW 18.5 H Plt Count 532 H Lymph % (Auto) 8.1 L [place] % (Auto) 9.7 H Lymph # 1.0 L [place] # 1.2 H Seg Neutrophils % 80.1 H Seg Neuts % (Manual) Lymphocytes % (Manual) Monocytes % (Manual) Seg Neutrophils # 10.3 H Seg Neutrophils # Man Lymphocytes # (Manual) Monocytes # (Manual) Basophils # (Manual) POC ABG pH POC ABG pCO2 POC ABG pO2 Sodium 130 L Potassium Chloride 89.6 L Carbon Dioxide BUN 33 H Creatinine 5.4 H Glucose POC Glucose 231 H Calcium 8.3 L AST Albumin Crossmatch 11/13/16 11/13/16 11/13/16 07:45 11:41 16:51 WBC RBC Hgb Hct MCH MCHC RDW Plt Count Lymph % (Auto) [place] % (Auto) Lymph # [place] # Seg Neutrophils % Seg Neuts % (Manual) Lymphocytes % (Manual) Monocytes % (Manual) Seg Neutrophils # Seg Neutrophils # Man Lymphocytes # (Manual) Monocytes # (Manual) Basophils # (Manual) POC ABG pH POC ABG pCO2 POC ABG pO2 Sodium Potassium Chloride Carbon Dioxide BUN Creatinine Glucose POC Glucose 113 H 115 H 148 H Calcium AST Albumin Crossmatch 11/13/16 11/14/16 11/14/16 21:00 05:00 05:00 WBC 12.9 H RBC 3.03 L Hgb 8.2 L Hct 25.5 L MCH 27 L MCHC RDW 18.8 H Plt Count Lymph % (Auto) 6.4 L [place] % (Auto) Lymph # 0.8 L [place] # 0.9 H Seg Neutrophils % 84.2 H Seg Neuts % (Manual) Lymphocytes % (Manual) Monocytes % (Manual) Seg Neutrophils # 10.9 H Seg Neutrophils # Man Lymphocytes # (Manual) Monocytes # (Manual) Basophils # (Manual) POC ABG pH POC ABG pCO2 POC ABG pO2 Sodium 133 L Potassium Chloride 93.5 L Carbon Dioxide BUN Creatinine 3.1 H Glucose 145 H POC Glucose 152 H Calcium 7.9 L AST Albumin Crossmatch 11/14/16 11/14/16 07:32 11:51 WBC RBC Hgb Hct MCH MCHC RDW Plt Count Lymph % (Auto) [place] % (Auto) Lymph # [place] # Seg Neutrophils % Seg Neuts % (Manual) Lymphocytes % (Manual) Monocytes % (Manual) Seg Neutrophils # Seg Neutrophils # Man Lymphocytes # (Manual) Monocytes # (Manual) Basophils # (Manual) POC ABG pH POC ABG pCO2 POC ABG pO2 Sodium Potassium Chloride Carbon Dioxide BUN Creatinine Glucose POC Glucose 138 H 260 H Calcium AST Albumin Crossmatch
--- NOTE | 2016-11-14 19:51 | Progress Note ---
Assessment and Plan - Patient Problems (1) Line sepsis associated with dialysis catheter Current Visit: Yes Status: Acute Plan to address problem: ID input appreciated. Continue antibiotics awaiting finalization of blood cultures. (2) MRSA bacteremia Current Visit: Yes Status: Acute Plan to address problem: Repeat blood cultures negative so far. Continue to follow up (3) End-stage renal disease (ESRD) Current Visit: Yes Status: Chronic Plan to address problem: Hemodialysis on a Sunday, Sunday and Sunday schedule. Next Hemodialysis in am (4) Hypertensive chronic kidney disease with stage 5 chronic kidney disease or end stage renal disease Current Visit: Yes Status: Chronic Plan to address problem: Follow-up blood pressure on current medications (5) Anemia in chronic kidney disease Current Visit: No Status: Chronic Plan to address problem: Give erythropoietin on dialysis. Follow up hemoglobin in the morning. (6) Colostomy in place Current Visit: Yes Status: Acute Plan to address problem: Continue colostomy care (7) Diabetes mellitus type II, controlled Current Visit: No Status: Chronic Qualifiers: Diabetes mellitus complication status: with kidney complications Diabetes mellitus complication detail: D Diabetic retinopathy severity: D Diabetes mellitus macular edema: D Diabetes mellitus intermediate manager insulin use: D Chronic kidney disease stage: on chronic dialysis Plan to address problem: Blood sugar management by primary attending Subjective Date of service: 11/14/16 Principal diagnosis: Permacath related bacteremia Interval history: Patient seen lying in bed. She has no complaints today. No chest pain or shortness of breath. Objective - Exam Narrative Exam: Elderly -[place] female lying in bed in no acute distress Neck supple, no thyromegaly no jugular venous distention CVS S1-S2 regular rate rhythm without murmur, rub or gallop Chest clear to auscultation Abdomen soft nondistended, OSTOMY intact, No tenderness, no organomegaly no bruit bowel sounds present Extremities no edema no cyanosis or clubbing Neuro awake, alert oriented x3 no gross deficit - Vital Signs Vital signs: Vital Signs - 12hr 11/14/16 11/14/16 11/14/16 10:00 10:46 11:50 Temperature 99.2 F Pulse Rate 90 Pulse Rate [ 90 96 H Left Radial] Pulse Rate [ 90 Right Radial] Respiratory 20 16 Rate Blood Pressure 131/62 Blood Pressure 132/66 [Left Arm] O2 Sat by Pulse 96 Oximetry 11/14/16 16:50 Temperature 97.9 F Pulse Rate Pulse Rate [ 20 L Left Radial] Pulse Rate [ Right Radial] Respiratory 20 Rate Blood Pressure Blood Pressure 139/73 [Left Arm] O2 Sat by Pulse Oximetry - Lab 11/14/16 05:00 11/14/16 05:00 Most recent lab results Calcium 7.9 mg/dL (8.4-10.2) L 11/14/16 05:00 Phosphorus 3.1 mg/dL (2.5-4.5) 11/02/16 04:36 Magnesium 1.7 mg/dL (1.7-2.3) 11/02/16 04:36
--- NOTE | 2016-11-15 04:19 | Progress Note ---
Assessment and Plan - Patient Problems (1) MRSA bacteremia Current Visit: Yes Status: Acute Plan to address problem: ID consulted, continue abx, awaiting final culture results. (2) Acute cholecystitis Current Visit: Yes Status: Resolved (3) End-stage renal disease (ESRD) Current Visit: Yes Status: Chronic Plan to address problem: Nephrology consulted, dialysis as per renal team. (4) Acute on chronic renal failure Current Visit: No Status: Acute Plan to address problem: Nephrology consulted, supportive care, monitor uop q shift. (5) Chronic systolic heart failure Current Visit: No Status: Chronic Plan to address problem: Telemetry monitoring, supportive care, (6) Diabetes mellitus type II, controlled Current Visit: No Status: Chronic Qualifiers: Diabetes mellitus complication status: with kidney complications Diabetes mellitus complication detail: D Diabetic retinopathy severity: D Diabetes mellitus macular edema: D Diabetes mellitus mcfp insulin use: D Chronic kidney disease stage: on chronic dialysis Plan to address problem: ADA diet, insulin, accu check (7) Debility Current Visit: Yes Status: Acute Plan to address problem: PT consulted, Pending placement. (8) DVT prophylaxis Current Visit: No Status: Acute History Interval history: Pt lying in bed, No reported nursing events. Pt lethargic, fragile, No reported nursing events. Pt more alert today. Pt medically optimized. Case management consulted. Pt pending placement with antibiotic therapy. Hospitalist Physical - Constitutional Vitals: Temp Pulse Resp BP Pulse Ox 97.4 F L 89 17 155/71 98 11/15/16 00:55 11/15/16 00:55 11/15/16 00:55 11/15/16 00:55 11/15/16 00:55 General appearance: Present: no acute distress, cachectic - EENT Eyes: Present: PERRL ENT: hearing intact - Neck Neck: Present: supple - Respiratory Respiratory: bilateral: diminished - Cardiovascular Rhythm: regular Heart Sounds: Present: S1 & S2 - Extremities Extremities: no ischemia Peripheral Pulses: within normal limits - Abdominal General gastrointestinal: soft, non-distended, no hepatomegaly, no splenomegaly - Integumentary Integumentary: Present: clear, dry, decreased turgor - Psychiatric Psychiatric: appropriate mood/affect - Neurologic Neurologic: CNII-XII intact, moves all extremities, no gait normal Results - Labs CBC & Chem 7: 11/14/16 05:00 11/14/16 05:00 Labs: Laboratory Last Values WBC 12.9 K/mm3 (4.5-11.0) H 11/14/16 05:00 RBC 3.03 M/mm3 (3.65-5.03) L 11/14/16 05:00 Hgb 8.2 gm/dl (10.1-14.3) L 11/14/16 05:00 Hct 25.5 % (30.3-42.9) L 11/14/16 05:00 MCV 84 fl (79-97) 11/14/16 05:00 MCH 27 pg (28-32) L 11/14/16 05:00 MCHC 32 % (30-34) 11/14/16 05:00 RDW 18.8 % (13.2-15.2) H 11/14/16 05:00 Plt Count 417 K/mm3 (140-440) 11/14/16 05:00 Lymph % (Auto) 6.4 % (13.4-35.0) L 11/14/16 05:00 [place] % (Auto) 7.3 % (0.0-7.3) 11/14/16 05:00 Eos % (Auto) 1.2 % (0.0-4.3) 11/14/16 05:00 Baso % (Auto) 0.9 % (0.0-1.8) 11/14/16 05:00 Lymph # 0.8 K/mm3 (1.2-5.4) L 11/14/16 05:00 [place] # 0.9 K/mm3 (0.0-0.8) H 11/14/16 05:00 Eos # 0.1 K/mm3 (0.0-0.4) 11/14/16 05:00 Baso # 0.1 K/mm3 (0.0-0.1) 11/14/16 05:00 Add Manual Diff Complete 11/10/16 04:38 Total Counted 100 11/10/16 04:38 Seg Neutrophils % 84.2 % (40.0-70.0) H 11/14/16 05:00 Seg Neuts % (Manual) 68.0 % (40.0-70.0) 11/10/16 04:38 Band Neutrophils % 6.0 % 11/10/16 04:38 Lymphocytes % (Manual) 12.0 % (13.4-35.0) L 11/10/16 04:38 Reactive Lymphs % (Man) 0 % 11/10/16 04:38 Monocytes % (Manual) 13.0 % (0.0-7.3) H 11/10/16 04:38 Eosinophils % (Manual) 1.0 % (0.0-4.3) 11/10/16 04:38 Basophils % (Manual) 0 % (0.0-1.8) 11/08/16 04:46 Metamyelocytes % 0 % 11/10/16 04:38 Myelocytes % 0 % 11/10/16 04:38 Promyelocytes % 0 % 11/10/16 04:38 Blast Cells % 0 % 11/10/16 04:38 Nucleated RBC % Not Reportable 11/10/16 04:38 Seg Neutrophils # 10.9 K/mm3 (1.8-7.7) H 11/14/16 05:00 Seg Neutrophils # Man 10.2 K/mm3 (1.8-7.7) H 11/10/16 04:38 Band Neutrophils # 0.9 K/mm3 11/10/16 04:38 Lymphocytes # (Manual) 1.8 K/mm3 (1.2-5.4) 11/10/16 04:38 Abs React Lymphs (Man) 0.0 K/mm3 11/10/16 04:38 Monocytes # (Manual) 2.0 K/mm3 (0.0-0.8) H 11/10/16 04:38 Eosinophils # (Manual) 0.2 K/mm3 (0.0-0.4) 11/10/16 04:38 Basophils # (Manual) 0.0 K/mm3 (0.0-0.1) 11/10/16 04:38 Metamyelocytes # 0.0 K/mm3 11/10/16 04:38 Myelocytes # 0.0 K/mm3 11/10/16 04:38 Promyelocytes # 0.0 K/mm3 11/10/16 04:38 Blast Cells # 0.0 K/mm3 11/10/16 04:38 WBC Morphology Not Reportable 11/10/16 04:38 Hypersegmented Neuts Not Reportable 11/10/16 04:38 Hyposegmented Neuts Not Reportable 11/10/16 04:38 Hypogranular Neuts Not Reportable 11/10/16 04:38 Smudge Cells Not Reportable 11/10/16 04:38 Toxic Granulation Not Reportable 11/10/16 04:38 Toxic Vacuolation Not Reportable 11/10/16 04:38 Dohle Bodies Not Reportable 11/10/16 04:38 Pelger-Huet Anomaly Not Reportable 11/10/16 04:38 Aida Rods Not Reportable 11/10/16 04:38 Platelet Estimate Consistent w auto 11/10/16 04:38 Clumped Platelets Not Reportable 11/10/16 04:38 Plt Clumps, EDTA Not Reportable 11/10/16 04:38 Large Platelets Not Reportable 11/10/16 04:38 Giant Platelets Not Reportable 11/10/16 04:38 Platelet Satelliting Not Reportable 11/10/16 04:38 Plt Morphology Comment Not Reportable 11/10/16 04:38 RBC Morphology Not Reportable 11/10/16 04:38 Dimorphic RBCs Not Reportable 11/10/16 04:38 Polychromasia Not Reportable 11/10/16 04:38 Hypochromasia 1+ 11/10/16 04:38 Poikilocytosis Not Reportable 11/10/16 04:38 Anisocytosis 1+ 11/10/16 04:38 Microcytosis Not Reportable 11/10/16 04:38 Macrocytosis Not Reportable 11/10/16 04:38 Spherocytes Not Reportable 11/10/16 04:38 Pappenheimer Bodies Not Reportable 11/10/16 04:38 Sickle Cells Not Reportable 11/10/16 04:38 Target Cells Not Reportable 11/10/16 04:38 Tear Drop Cells Not Reportable 11/10/16 04:38 Ovalocytes Not Reportable 11/10/16 04:38 Helmet Cells Not Reportable 11/10/16 04:38 Munoz-Coolidge Bodies Not Reportable 11/10/16 04:38 [place] Rings Not Reportable 11/10/16 04:38 Bernard Cells Not Reportable 11/10/16 04:38 Bite Cells Not Reportable 11/10/16 04:38 Crenated Cell Not Reportable 11/10/16 04:38 Elliptocytes Not Reportable 11/10/16 04:38 Acanthocytes (Spur) Not Reportable 11/10/16 04:38 Rouleaux Not Reportable 11/10/16 04:38 Hemoglobin C Crystals Not Reportable 11/10/16 04:38 Schistocytes Not Reportable 11/10/16 04:38 Malaria parasites Not Reportable 11/10/16 04:38 Jalil Bodies Not Reportable 11/10/16 04:38 Hem Pathologist Commnt No 11/10/16 04:38 POC ABG pH 7.488 (7.35-7.45) H 11/01/16 05:56 POC ABG pCO2 31.0 (35-45) L 11/01/16 05:56 POC ABG pO2 106 (80-105) H 11/01/16 05:56 POC ABG HCO3 23.5 11/01/16 05:56 POC ABG Total CO2 24 11/01/16 05:56 POC ABG O2 Sat 99 11/01/16 05:56 POC ABG Base Excess 0 11/01/16 05:56 FiO2 40 % 11/01/16 05:56 Sodium 133 mmol/L (137-145) L 11/14/16 05:00 Potassium 4.1 mmol/L (3.6-5.0) 11/14/16 05:00 Chloride 93.5 mmol/L (98-107) L 11/14/16 05:00 Carbon Dioxide 26 mmol/L (22-30) 11/14/16 05:00 Anion Gap 18 mmol/L 11/14/16 05:00 BUN 13 mg/dL (7-17) 11/14/16 05:00 Creatinine 3.1 mg/dL (0.7-1.2) H 11/14/16 05:00 Estimated GFR 17 ml/min 11/14/16 05:00 BUN/Creatinine Ratio 4.19 % 11/14/16 05:00 Glucose 145 mg/dL (65-100) H 11/14/16 05:00 POC Glucose 236 (70-105) H 11/14/16 22:11 Calcium 7.9 mg/dL (8.4-10.2) L 11/14/16 05:00 Phosphorus 3.1 mg/dL (2.5-4.5) 11/02/16 04:36 Magnesium 1.7 mg/dL (1.7-2.3) 11/02/16 04:36 Total Bilirubin 0.6 mg/dL (0.1-1.2) 11/01/16 22:37 AST 44 units/L (5-40) H 11/01/16 22:37 ALT 18 units/L (7-56) 11/01/16 22:37 Alkaline Phosphatase 109 units/L (35-129) 11/01/16 22:37 Total Protein 7.2 g/dL (6.3-8.2) 11/01/16 22:37 Albumin 2.4 g/dL (3.9-5) L 11/01/16 22:37 Albumin/Globulin Ratio 0.5 % 11/01/16 22:37 Urine Color Yellow (Yellow) 10/30/16 00:30 Urine Turbidity Slightly-cloudy (Clear) 10/30/16 00:30 Urine pH 5.0 (5.0-7.0) 10/30/16 00:30 Ur Specific Varina 1.015 (1.003-1.030) 10/30/16 00:30 Urine Protein 100 mg/dl mg/dL (Negative) 10/30/16 00:30 Urine Glucose (UA) Neg mg/dL (Negative) 10/30/16 00:30 Urine Ketones Tr mg/dL (Negative) 10/30/16 00:30 Urine Blood Neg (Negative) 10/30/16 00:30 Urine Nitrite Neg (Negative) 10/30/16 00:30 Urine Bilirubin Neg (Negative) 10/30/16 00:30 Urine Urobilinogen < 2.0 mg/dL (<2.0) 10/30/16 00:30 Ur Leukocyte Esterase Neg (Negative) 10/30/16 00:30 Urine WBC (Auto) 10.0 /HPF (0.0-6.0) H 10/30/16 00:30 Urine RBC (Auto) 2.0 /HPF (0.0-6.0) 10/30/16 00:30 U Epithel Cells (Auto) 6.0 /HPF (0-13.0) 10/30/16 00:30 Amorphous Crystals 1+ 10/30/16 00:30 Hyaline Casts 16 /LPF 10/30/16 00:30 Granular Casts 4 /LPF 10/30/16 00:30 Urine Mucus Few /HPF 10/30/16 00:30 Random Vancomycin 21.5 ug/mL (0-40.0) 11/13/16 04:28 Blood Type B POSITIVE 11/12/16 11:30 Antibody Screen Negative 11/12/16 11:30 Crossmatch See Detail 11/12/16 11:30
[2016-11-15] MEDS: NOVOLOG SUB-Q SCH ×4 (08:10→21:21)
[2016-11-15] MEDS: COREG PO SCH ×2 (09:59→21:21)
[2016-11-15] MEDS: LOVENOX SUB-Q SCH (10:00)
[2016-11-15] MEDS: PROTONIX PO SCH (10:01)
--- NOTE | 2016-11-15 11:41 | Vascular Lab Report ---
MISCELLANEOUS VESSEL IDENTIFICATION: COMMENTS ON THE SCAN: The right common femoral vein was identified and under real-time ultrasound guidance was cannulated. IMPRESSION: Successful ultrasound guided vein cannulation.
--- NOTE | 2016-11-15 11:42 | Vascular Lab Report ---
MISCELLANEOUS VESSEL IDENTIFICATION: COMMENTS ON THE SCAN: The left internal jugular vein was identified and under real-time ultrasound guidance was cannulated. IMPRESSION: Successful ultrasound guided vein cannulation.
--- NOTE | 2016-11-15 13:17 | Progress Note ---
Assessment and Plan Current antibiotics: Vancomycin IV (Pulse doses) 10/30, 11/07 --> Previous antibiotics: Zosyn 4.5 g IV q8h 10/30-10/31 Ceftriaxone 1 g IV q24h 10/30-10/31 Metronidazole 500 mg IV q8h 10/31-11/07 Levaquin 500 mg IV q24h 10/30-11/07 ASSESSMENT: Barbra Babin is an 85 y/o female who lives independently with HTN, type 2 DM, ESRD on maintenance HD, COPD, systolic heart failure (EF 45-50 percent), previous bowel perforation with colostomy (~ 6 years ago) who had been hospitalized at 10/21-10/24 with hypoglycemia. She had been hospitalized approximately 4 weeks earlier with worsening renal failure requiring initiation of HD (M-W-Fr) via a right chest wall PC ( inserted 10/04/16). She re- presents on 10/30 with abdominal and back pain and is found to have with non- visualization of the gallbladder on HIDA scan. 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 Blood cultures are growing MRSA. Problem list: 1. MRSA bacteremia - 10/30:4/4 bottles + -11/06: 3/4 bottles + -Likely right chest wall permacath source. removed 11/08 -Repeat blood cultures on 11/08 No growth -11/07 transthoracic echocardiogram showed vegetation versus fibrin sheath on the catheter 2. Biliary sepsis with acute cholecystitis - s/p open cholecystectomy - 10/31 3. Leukocytosis -2nd to above -Improving 4. ESRD -Maintenance HD -New Vas-Cath placed in right common femoral vein 11/10 5. Back pain -Etiology unclear -Rule out discitis or vertebral osteomyelitis 6. Anemia 7. Type 2 diabetes mellitus PLAN: 1. Continue vancomycin 2. Length of therapy to be determine but with prolonged bacteremia and TTE findings will likely need therapy for endovascular infection 3. Will obtain MRI of the thoracic spine to look for infection 4. Continued supportive measures Barrie Martinez MD [facility] Office: [phone] Subjective Date of service: 11/15/16 Principal diagnosis: Permacath related bacteremia Interval history: Still complaining of back pain in the lower thoracic region. Appetite "not good. " ROS: No subjective fever or chills. No nausea, vomiting or diarrhea. No shortness of breath, cough or pleuritic chest pain Objective - Exam Narrative Exam: GENERAL: Well-developed, thin female who is alert and in no acute distress. Appears somewhat chronically ill. HEAD: Normocephalic. No lesions seen. Mild by temporalis muscle wasting. EYES: Pupils are equal reactive to light and accommodation. There is no scleral icterus. Optic fundi are not examined. Bilateral arcus senilis. EARS: Normal external ears. THROAT: Oropharynx is normal with no evidence of oral candidiasis or pharyngitis. Somewhat poor dentition. NECK: Supple. No enlargement of the thyroid gland. No significant cervical lymphadenopathy. No jugular venous distention at 30. LUNGS: Clear with no adventitious sounds. CHEST: Previous right sided PermCath site with no signs of infection. HEART: Regular rate. S1 and S2 are normal. There are no murmurs, gallops, clicks or rubs heard. ABDOMEN: Soft with mild right upper quadrant tenderness without guarding or rebound. Liver and spleen are not palpably enlarged or tender. No palpable masses. Bowel sounds are normoactive. Colostomy in place with healthy mucosa and functioning normally. Right upper quadrant abdominal wound healing with no signs of infection. EXTREMITIES: No rash, peripheral lymphadenopathy, clubbing or edema. Right groin Vas-Cath that was placed earlier today. Mild tenderness over upper lumbar spine with no other objective abnormalities. : Normal external female NEUROLOGIC: No focal findings. - Constitutional Vitals: Vital Signs Temp Pulse Resp BP Pulse Ox 97.3 F L 84 18 182/83 95 11/15/16 08:52 11/15/16 09:59 11/15/16 08:52 11/15/16 09:59 11/15/16 08:52 Temperature -Last 24 Hours Temperature 97.3 F Temperature 98.2 F Temperature 97.4 F Temperature 98.1 F Temperature 97.9 F - Labs CBC & Chem 7: 11/14/16 05:00 11/14/16 05:00 Labs: Abnormal lab results Microbiology 11/09/16 12:33 Peripheral/Venous Blood Culture - Preliminary NO GROWTH 11/09/16 12:23 Peripheral/Venous Blood Culture - Preliminary NO GROWTH 11/08/16 13:15 Peripheral/Venous Blood Culture - Preliminary NO GROWTH 11/08/16 Unknown Vascular Cath Catheter Tip Culture - < 15 colonies Staph aureus 11/06/16 Unknown Peripheral/Venous Blood Culture - Final Methicillin Resist S. Aureus (1/2 bottles) 11/06/16 Unknown Peripheral/Venous Blood Culture - Preliminary Methicillin Resist S. Aureus (2/2 bottles) 10/30/16 01:13 Peripheral/Venous Blood Culture - Final Methicillin Resist S. Aureus (2/2 bottles) 10/30/16 01:13 Peripheral/Venous Blood Culture - Final Methicillin Resist S. Aureus (2/2 bottles)
[2016-11-15] MEDS: MORPHINE IV PRN (14:51)
--- NOTE | 2016-11-15 16:59 | Progress Note ---
Assessment and Plan - Patient Problems (1) Line sepsis associated with dialysis catheter Current Visit: Yes Status: Acute Plan to address problem: ID input appreciated. Continue antibiotics awaiting finalization of blood cultures. (2) MRSA bacteremia Current Visit: Yes Status: Acute Plan to address problem: Repeat blood cultures negative so far. Continue to follow up (3) End-stage renal disease (ESRD) Current Visit: Yes Status: Chronic Plan to address problem: Hemodialysis on a Sunday, Sunday and Sunday schedule. Continue Rx (4) Hypertensive chronic kidney disease with stage 5 chronic kidney disease or end stage renal disease Current Visit: Yes Status: Chronic Plan to address problem: Follow-up blood pressure on current medications (5) Anemia in chronic kidney disease Current Visit: No Status: Chronic Plan to address problem: Give erythropoietin on dialysis. Follow up hemoglobin in the morning. 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 She has no complaints today. No chest pain or shortness of breath. Q 400/800 UFR 2 L Objective - Exam Narrative Exam: Elderly -[place] female lying in bed in no acute distress Neck supple, no thyromegaly no jugular venous distention CVS S1-S2 regular rate rhythm without murmur, rub or gallop Chest clear to auscultation Abdomen soft nondistended, OSTOMY intact, No tenderness, no organomegaly no bruit bowel sounds present Extremities no edema no cyanosis or clubbing Neuro awake, alert oriented x3 no gross deficit - Vital Signs Vital signs: Vital Signs - 12hr 11/15/16 11/15/16 11/15/16 06:00 08:52 09:59 Temperature 98.2 F 97.3 F L Pulse Rate 84 Pulse Rate [ 84 Left Radial] Pulse Rate [ 84 Right Radial] Respiratory 19 18 Rate Blood Pressure 182/83 Blood Pressure 182/83 [Left Arm] Blood Pressure 182/83 [Right Radial Artery] O2 Sat by Pulse 93 95 Oximetry 11/15/16 11/15/16 11/15/16 10:00 13:15 13:35 Temperature 97.3 F L Pulse Rate 70 71 94 H Pulse Rate [ Left Radial] Pulse Rate [ Right Radial] Respiratory 20 Rate Blood Pressure 148/73 133/65 Blood Pressure [Left Arm] Blood Pressure [Right Radial Artery] O2 Sat by Pulse Oximetry 11/15/16 11/15/16 11/15/16 13:45 14:00 14:15 Temperature Pulse Rate 71 104 H 108 H Pulse Rate [ Left Radial] Pulse Rate [ Right Radial] Respiratory Rate Blood Pressure 124/51 130/51 128/68 Blood Pressure [Left Arm] Blood Pressure [Right Radial Artery] O2 Sat by Pulse Oximetry 11/15/16 11/15/16 11/15/16 14:30 14:45 14:51 Temperature Pulse Rate 119 H 113 H Pulse Rate [ Left Radial] Pulse Rate [ Right Radial] Respiratory 24 Rate Blood Pressure 98/72 113/57 Blood Pressure [Left Arm] Blood Pressure [Right Radial Artery] O2 Sat by Pulse Oximetry 11/15/16 11/15/16 11/15/16 15:00 15:15 15:30 Temperature Pulse Rate 87 54 L 86 Pulse Rate [ Left Radial] Pulse Rate [ Right Radial] Respiratory Rate Blood Pressure 119/46 121/46 111/44 Blood Pressure [Left Arm] Blood Pressure [Right Radial Artery] O2 Sat by Pulse Oximetry 11/15/16 11/15/16 11/15/16 15:45 16:00 16:15 Temperature Pulse Rate 96 H 85 85 Pulse Rate [ Left Radial] Pulse Rate [ Right Radial] Respiratory Rate Blood Pressure 115/47 98/55 122/46 Blood Pressure [Left Arm] Blood Pressure [Right Radial Artery] O2 Sat by Pulse Oximetry 11/15/16 11/15/16 16:30 16:45 Temperature Pulse Rate 101 H 75 Pulse Rate [ Left Radial] Pulse Rate [ Right Radial] Respiratory Rate Blood Pressure 114/66 137/42 Blood Pressure [Left Arm] Blood Pressure [Right Radial Artery] O2 Sat by Pulse Oximetry - Lab 11/14/16 05:00 11/14/16 05:00 Most recent lab results Calcium 7.9 mg/dL (8.4-10.2) L 11/14/16 05:00 Phosphorus 3.1 mg/dL (2.5-4.5) 11/02/16 04:36 Magnesium 1.7 mg/dL (1.7-2.3) 11/02/16 04:36
[2016-11-15] MEDS: HEPARIN IV PRN (17:24)
--- NOTE | 2016-11-15 18:56 | Progress Note ---
Assessment and Plan - Patient Problems (1) MRSA bacteremia Current Visit: Yes Status: Acute Plan to address problem: ID consulted, continue abx, awaiting final culture results. (2) Acute cholecystitis Current Visit: Yes Status: Resolved Plan to address problem: IV abx, Surgery consulted, NPO, supportive care, S/P Lap ko, (3) End-stage renal disease (ESRD) Current Visit: Yes Status: Chronic Plan to address problem: Nephrology consulted, dialysis as per renal team. (4) Acute on chronic renal failure Current Visit: No Status: Acute Plan to address problem: Nephrology consulted, supportive care, monitor uop q shift. (5) Chronic systolic heart failure Current Visit: No Status: Chronic Plan to address problem: Telemetry monitoring, supportive care, (6) Diabetes mellitus type II, controlled Current Visit: No Status: Chronic Qualifiers: Diabetes mellitus complication status: with kidney complications Diabetes mellitus complication detail: D Diabetic retinopathy severity: D Diabetes mellitus macular edema: D Diabetes mellitus intermodal dispatcher insulin use: D Chronic kidney disease stage: on chronic dialysis Plan to address problem: ADA diet, insulin, accu check (7) Debility Current Visit: Yes Status: Acute Plan to address problem: PT consulted, Pending placement. (8) DVT prophylaxis Current Visit: No Status: Acute History Interval history: Pt lying in bed, No reported nursing events. Pt lethargic, fragile, No reported nursing events. Pt more alert today. Pt medically optimized. Case management consulted. Pt medically optimized. pending placement. Called Kayli with [employer] at per case management request at [phone]. Left message Hospitalist Physical - Constitutional Vitals: Temp Pulse Resp BP Pulse Ox 97.3 F L 107 H 22 114/53 95 11/15/16 13:15 11/15/16 17:20 11/15/16 17:20 11/15/16 17:20 11/15/16 08:52 General appearance: Present: no acute distress, cachectic - Neck Neck: Present: supple - Respiratory Respiratory: bilateral: diminished - Cardiovascular Rhythm: regular Heart Sounds: Present: S1 & S2 - Extremities Extremities: no ischemia Peripheral Pulses: within normal limits - Abdominal General gastrointestinal: soft, non-tender, non-distended - Integumentary Integumentary: Present: clear, dry, decreased turgor - Psychiatric Psychiatric: no intact judgment & insight, no memory intact - Neurologic Neurologic: no gait normal Results - Labs CBC & Chem 7: 11/14/16 05:00 11/14/16 05:00 Labs: Laboratory Last Values WBC 12.9 K/mm3 (4.5-11.0) H 11/14/16 05:00 RBC 3.03 M/mm3 (3.65-5.03) L 11/14/16 05:00 Hgb 8.2 gm/dl (10.1-14.3) L 11/14/16 05:00 Hct 25.5 % (30.3-42.9) L 11/14/16 05:00 MCV 84 fl (79-97) 11/14/16 05:00 MCH 27 pg (28-32) L 11/14/16 05:00 MCHC 32 % (30-34) 11/14/16 05:00 RDW 18.8 % (13.2-15.2) H 11/14/16 05:00 Plt Count 417 K/mm3 (140-440) 11/14/16 05:00 Lymph % (Auto) 6.4 % (13.4-35.0) L 11/14/16 05:00 [place] % (Auto) 7.3 % (0.0-7.3) 11/14/16 05:00 Eos % (Auto) 1.2 % (0.0-4.3) 11/14/16 05:00 Baso % (Auto) 0.9 % (0.0-1.8) 11/14/16 05:00 Lymph # 0.8 K/mm3 (1.2-5.4) L 11/14/16 05:00 [place] # 0.9 K/mm3 (0.0-0.8) H 11/14/16 05:00 Eos # 0.1 K/mm3 (0.0-0.4) 11/14/16 05:00 Baso # 0.1 K/mm3 (0.0-0.1) 11/14/16 05:00 Add Manual Diff Complete 11/10/16 04:38 Total Counted 100 11/10/16 04:38 Seg Neutrophils % 84.2 % (40.0-70.0) H 11/14/16 05:00 Seg Neuts % (Manual) 68.0 % (40.0-70.0) 11/10/16 04:38 Band Neutrophils % 6.0 % 11/10/16 04:38 Lymphocytes % (Manual) 12.0 % (13.4-35.0) L 11/10/16 04:38 Reactive Lymphs % (Man) 0 % 11/10/16 04:38 Monocytes % (Manual) 13.0 % (0.0-7.3) H 11/10/16 04:38 Eosinophils % (Manual) 1.0 % (0.0-4.3) 11/10/16 04:38 Basophils % (Manual) 0 % (0.0-1.8) 11/08/16 04:46 Metamyelocytes % 0 % 11/10/16 04:38 Myelocytes % 0 % 11/10/16 04:38 Promyelocytes % 0 % 11/10/16 04:38 Blast Cells % 0 % 11/10/16 04:38 Nucleated RBC % Not Reportable 11/10/16 04:38 Seg Neutrophils # 10.9 K/mm3 (1.8-7.7) H 11/14/16 05:00 Seg Neutrophils # Man 10.2 K/mm3 (1.8-7.7) H 11/10/16 04:38 Band Neutrophils # 0.9 K/mm3 11/10/16 04:38 Lymphocytes # (Manual) 1.8 K/mm3 (1.2-5.4) 11/10/16 04:38 Abs React Lymphs (Man) 0.0 K/mm3 11/10/16 04:38 Monocytes # (Manual) 2.0 K/mm3 (0.0-0.8) H 11/10/16 04:38 Eosinophils # (Manual) 0.2 K/mm3 (0.0-0.4) 11/10/16 04:38 Basophils # (Manual) 0.0 K/mm3 (0.0-0.1) 11/10/16 04:38 Metamyelocytes # 0.0 K/mm3 11/10/16 04:38 Myelocytes # 0.0 K/mm3 11/10/16 04:38 Promyelocytes # 0.0 K/mm3 11/10/16 04:38 Blast Cells # 0.0 K/mm3 11/10/16 04:38 WBC Morphology Not Reportable 11/10/16 04:38 Hypersegmented Neuts Not Reportable 11/10/16 04:38 Hyposegmented Neuts Not Reportable 11/10/16 04:38 Hypogranular Neuts Not Reportable 11/10/16 04:38 Smudge Cells Not Reportable 11/10/16 04:38 Toxic Granulation Not Reportable 11/10/16 04:38 Toxic Vacuolation Not Reportable 11/10/16 04:38 Dohle Bodies Not Reportable 11/10/16 04:38 Pelger-Huet Anomaly Not Reportable 11/10/16 04:38 Aida Rods Not Reportable 11/10/16 04:38 Platelet Estimate Consistent w auto 11/10/16 04:38 Clumped Platelets Not Reportable 11/10/16 04:38 Plt Clumps, EDTA Not Reportable 11/10/16 04:38 Large Platelets Not Reportable 11/10/16 04:38 Giant Platelets Not Reportable 11/10/16 04:38 Platelet Satelliting Not Reportable 11/10/16 04:38 Plt Morphology Comment Not Reportable 11/10/16 04:38 RBC Morphology Not Reportable 11/10/16 04:38 Dimorphic RBCs Not Reportable 11/10/16 04:38 Polychromasia Not Reportable 11/10/16 04:38 Hypochromasia 1+ 11/10/16 04:38 Poikilocytosis Not Reportable 11/10/16 04:38 Anisocytosis 1+ 11/10/16 04:38 Microcytosis Not Reportable 11/10/16 04:38 Macrocytosis Not Reportable 11/10/16 04:38 Spherocytes Not Reportable 11/10/16 04:38 Pappenheimer Bodies Not Reportable 11/10/16 04:38 Sickle Cells Not Reportable 11/10/16 04:38 Target Cells Not Reportable 11/10/16 04:38 Tear Drop Cells Not Reportable 11/10/16 04:38 Ovalocytes Not Reportable 11/10/16 04:38 Helmet Cells Not Reportable 11/10/16 04:38 Munoz-[place] Bodies Not Reportable 11/10/16 04:38 [place] Rings Not Reportable 11/10/16 04:38 [place] Cells Not Reportable 11/10/16 04:38 Bite Cells Not Reportable 11/10/16 04:38 Crenated Cell Not Reportable 11/10/16 04:38 Elliptocytes Not Reportable 11/10/16 04:38 Acanthocytes (Spur) Not Reportable 11/10/16 04:38 Rouleaux Not Reportable 11/10/16 04:38 Hemoglobin C Crystals Not Reportable 11/10/16 04:38 Schistocytes Not Reportable 11/10/16 04:38 Malaria parasites Not Reportable 11/10/16 04:38 Jalil Bodies Not Reportable 11/10/16 04:38 Hem Pathologist Commnt No 11/10/16 04:38 POC ABG pH 7.488 (7.35-7.45) H 11/01/16 05:56 POC ABG pCO2 31.0 (35-45) L 11/01/16 05:56 POC ABG pO2 106 (80-105) H 11/01/16 05:56 POC ABG HCO3 23.5 11/01/16 05:56 POC ABG Total CO2 24 11/01/16 05:56 POC ABG O2 Sat 99 11/01/16 05:56 POC ABG Base Excess 0 11/01/16 05:56 FiO2 40 % 11/01/16 05:56 Sodium 133 mmol/L (137-145) L 11/14/16 05:00 Potassium 4.1 mmol/L (3.6-5.0) 11/14/16 05:00 Chloride 93.5 mmol/L (98-107) L 11/14/16 05:00 Carbon Dioxide 26 mmol/L (22-30) 11/14/16 05:00 Anion Gap 18 mmol/L 11/14/16 05:00 BUN 13 mg/dL (7-17) 11/14/16 05:00 Creatinine 3.1 mg/dL (0.7-1.2) H 11/14/16 05:00 Estimated GFR 17 ml/min 11/14/16 05:00 BUN/Creatinine Ratio 4.19 % 11/14/16 05:00 Glucose 145 mg/dL (65-100) H 11/14/16 05:00 POC Glucose 207 (70-105) H 11/15/16 11:55 Calcium 7.9 mg/dL (8.4-10.2) L 11/14/16 05:00 Phosphorus 3.1 mg/dL (2.5-4.5) 11/02/16 04:36 Magnesium 1.7 mg/dL (1.7-2.3) 11/02/16 04:36 Total Bilirubin 0.6 mg/dL (0.1-1.2) 11/01/16 22:37 AST 44 units/L (5-40) H 11/01/16 22:37 ALT 18 units/L (7-56) 11/01/16 22:37 Alkaline Phosphatase 109 units/L (35-129) 11/01/16 22:37 Total Protein 7.2 g/dL (6.3-8.2) 11/01/16 22:37 Albumin 2.4 g/dL (3.9-5) L 11/01/16 22:37 Albumin/Globulin Ratio 0.5 % 11/01/16 22:37 Urine Color Yellow (Yellow) 10/30/16 00:30 Urine Turbidity Slightly-cloudy (Clear) 10/30/16 00:30 Urine pH 5.0 (5.0-7.0) 10/30/16 00:30 Ur Specific [place] 1.015 (1.003-1.030) 10/30/16 00:30 Urine Protein 100 mg/dl mg/dL (Negative) 10/30/16 00:30 Urine Glucose (UA) Neg mg/dL (Negative) 10/30/16 00:30 Urine Ketones Tr mg/dL (Negative) 10/30/16 00:30 Urine Blood Neg (Negative) 10/30/16 00:30 Urine Nitrite Neg (Negative) 10/30/16 00:30 Urine Bilirubin Neg (Negative) 10/30/16 00:30 Urine Urobilinogen < 2.0 mg/dL (<2.0) 10/30/16 00:30 Ur Leukocyte Esterase Neg (Negative) 10/30/16 00:30 Urine WBC (Auto) 10.0 /HPF (0.0-6.0) H 10/30/16 00:30 Urine RBC (Auto) 2.0 /HPF (0.0-6.0) 10/30/16 00:30 U Epithel Cells (Auto) 6.0 /HPF (0-13.0) 10/30/16 00:30 Amorphous Crystals 1+ 10/30/16 00:30 Hyaline Casts 16 /LPF 10/30/16 00:30 Granular Casts 4 /LPF 10/30/16 00:30 Urine Mucus Few /HPF 10/30/16 00:30 Random Vancomycin 21.5 ug/mL (0-40.0) 11/13/16 04:28 Blood Type B POSITIVE 11/12/16 11:30 Antibody Screen Negative 11/12/16 11:30 Crossmatch See Detail 11/12/16 11:30
[2016-11-15] MEDS: VANCOMYCIN VIAL 750 MG in NACL 0.9% 250ML 250 ML IV SCH (21:19)
[2016-11-16] MEDS: ZOFRAN IV PRN ×2 (10:30→18:28)
[2016-11-16] MEDS: MORPHINE IV PRN ×2 (10:31→18:28)
[2016-11-16] MEDS: PROTONIX PO SCH (10:31)
[2016-11-16] MEDS: LOVENOX SUB-Q SCH (10:31)
[2016-11-16] MEDS: COREG PO SCH ×2 (10:31→21:41)
[2016-11-16] MEDS: NOVOLOG SUB-Q SCH ×4 (10:32→21:34)
--- NOTE | 2016-11-16 12:25 | Progress Note ---
Assessment and Plan Current antibiotics: Vancomycin IV (Pulse doses) 10/30, 11/07 --> Previous antibiotics: Zosyn 4.5 g IV q8h 10/30-10/31 Ceftriaxone 1 g IV q24h 10/30-10/31 Metronidazole 500 mg IV q8h 10/31-11/07 Levaquin 500 mg IV q24h 10/30-11/07 ASSESSMENT: Barbra Babin is an 85 y/o female who lives independently with HTN, type 2 DM, ESRD on maintenance HD, COPD, systolic heart failure (EF 45-50 percent), previous bowel perforation with colostomy (~ 6 years ago) who had been hospitalized at 10/21-10/24 with hypoglycemia. She had been hospitalized approximately 4 weeks earlier with worsening renal failure requiring initiation of HD (M-W-Fr) via a right chest wall PC ( inserted 10/04/16). She re- presents on 10/30 with abdominal and back pain and is found to have with non- visualization of the gallbladder on HIDA scan. 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 Blood cultures are growing MRSA. Problem list: 1. MRSA bacteremia - 10/30:4/4 bottles + -11/06: 3/4 bottles + -Likely right chest wall permacath source. removed 11/08 -Repeat blood cultures on 11/08 No growth -11/07 transthoracic echocardiogram showed vegetation versus fibrin sheath on the catheter 2. Biliary sepsis with acute cholecystitis - s/p open cholecystectomy - 10/31 3. Leukocytosis -2nd to above -Improving 4. ESRD -Maintenance HD -New Vas-Cath placed in right common femoral vein 11/10 5. Back pain -Etiology unclear -Rule out discitis or vertebral osteomyelitis 6. Anemia 7. Type 2 diabetes mellitus PLAN: 1. Continue vancomycin 2. Length of therapy to be determine but with prolonged bacteremia and TTE findings will likely need therapy for endovascular infection 3. MRI of the thoracic spine to be done today to look for infection 4. Continued supportive measures Barrie Martinez MD [facility] Office: [phone] Subjective Date of service: 11/16/16 Principal diagnosis: Permacath related bacteremia Interval history: Still complaining of back pain in the lower thoracic region. Appetite "not good. " ROS: No subjective fever or chills. No nausea, vomiting or diarrhea. No shortness of breath, cough or pleuritic chest pain Objective - Exam Narrative Exam: GENERAL: Well-developed, thin female who is alert and in no acute distress. Appears somewhat chronically ill. HEAD: Normocephalic. No lesions seen. Mild by temporalis muscle wasting. EYES: Pupils are equal reactive to light and accommodation. There is no scleral icterus. Optic fundi are not examined. Bilateral arcus senilis. EARS: Normal external ears. THROAT: Oropharynx is normal with no evidence of oral candidiasis or pharyngitis. Somewhat poor dentition. NECK: Supple. No enlargement of the thyroid gland. No significant cervical lymphadenopathy. No jugular venous distention at 30. LUNGS: Clear with no adventitious sounds. CHEST: Previous right sided PermCath site with no signs of infection. HEART: Regular rate. S1 and S2 are normal. There are no murmurs, gallops, clicks or rubs heard. ABDOMEN: Soft with mild right upper quadrant tenderness without guarding or rebound. Liver and spleen are not palpably enlarged or tender. No palpable masses. Bowel sounds are normoactive. Colostomy in place with healthy mucosa and functioning normally. Right upper quadrant abdominal wound healing with no signs of infection. EXTREMITIES: No rash, peripheral lymphadenopathy, clubbing or edema. Right groin Vas-Cath that was placed earlier today. Mild tenderness over upper lumbar spine with no other objective abnormalities. : Normal external female NEUROLOGIC: No focal findings. - Constitutional Vitals: Vital Signs Temp Pulse Resp BP Pulse Ox 98.0 F 90 20 134/60 94 11/16/16 08:00 11/16/16 10:31 11/16/16 08:00 11/16/16 10:31 11/16/16 05:30 Temperature -Last 24 Hours Temperature 98.0 F Temperature 97.6 F Temperature 97.6 F Temperature 97.5 F Temperature 97.3 F Temperature 97.3 F - Labs CBC & Chem 7: 11/14/16 05:00 11/14/16 05:00 Labs: Abnormal lab results Microbiology 11/09/16 12:33 Peripheral/Venous Blood Culture - Preliminary NO GROWTH 11/09/16 12:23 Peripheral/Venous Blood Culture - Preliminary NO GROWTH 11/08/16 13:15 Peripheral/Venous Blood Culture - Preliminary NO GROWTH 11/08/16 Unknown Vascular Cath Catheter Tip Culture - < 15 colonies Staph aureus 11/06/16 Unknown Peripheral/Venous Blood Culture - Final Methicillin Resist S. Aureus (1/2 bottles) 11/06/16 Unknown Peripheral/Venous Blood Culture - Preliminary Methicillin Resist S. Aureus (2/2 bottles) 10/30/16 01:13 Peripheral/Venous Blood Culture - Final Methicillin Resist S. Aureus (2/2 bottles) 10/30/16 01:13 Peripheral/Venous Blood Culture - Final Methicillin Resist S. Aureus (2/2 bottles)
--- NOTE | 2016-11-16 16:49 | Progress Note ---
Assessment and Plan - Patient Problems (1) MRSA bacteremia Current Visit: Yes Status: Acute Plan to address problem: ID consulted, continue abx, awaiting final culture results. (2) Acute cholecystitis Current Visit: Yes Status: Resolved Plan to address problem: IV abx, Surgery consulted, NPO, supportive care, S/P Lap ko, (3) End-stage renal disease (ESRD) Current Visit: Yes Status: Chronic Plan to address problem: Nephrology consulted, dialysis as per renal team. (4) Acute on chronic renal failure Current Visit: No Status: Acute Plan to address problem: Nephrology consulted, supportive care, monitor uop q shift. (5) Chronic systolic heart failure Current Visit: No Status: Chronic Plan to address problem: Telemetry monitoring, supportive care, (6) Diabetes mellitus type II, controlled Current Visit: No Status: Chronic Qualifiers: Diabetes mellitus complication status: with kidney complications Diabetes mellitus complication detail: D Diabetic retinopathy severity: D Diabetes mellitus macular edema: D Diabetes mellitus long term care social worker insulin use: D Chronic kidney disease stage: on chronic dialysis Plan to address problem: ADA diet, insulin, accu check (7) Debility Current Visit: Yes Status: Acute Plan to address problem: PT consulted, Pending placement. (8) DVT prophylaxis Current Visit: No Status: Acute History Interval history: Pt lying in bed, No reported nursing events. Pt lethargic, fragile, No reported nursing events. Pt more alert today. Pt medically optimized. Case management consulted. Pt medically optimized. D/C to SNF/Hospice. Called [employer] at per case management request and conducted peer to peer. Hospitalist Physical - Constitutional Vitals: Temp Pulse Resp BP Pulse Ox 98.0 F 90 20 134/60 94 11/16/16 08:00 11/16/16 10:31 11/16/16 08:00 11/16/16 10:31 11/16/16 05:30 General appearance: Present: no acute distress, cachectic - EENT Eyes: Present: PERRL - Neck Neck: Present: supple - Respiratory Respiratory: bilateral: diminished - Cardiovascular Rhythm: regular Heart Sounds: Present: S1 & S2 Peripheral Pulses: within normal limits - Abdominal General gastrointestinal: soft, non-distended - Integumentary Integumentary: Present: clear, dry, decreased turgor - Psychiatric Psychiatric: no intact judgment & insight, no memory intact - Neurologic Neurologic: no gait normal Results - Labs CBC & Chem 7: 11/14/16 05:00 11/14/16 05:00 Labs: Laboratory Last Values WBC 12.9 K/mm3 (4.5-11.0) H 11/14/16 05:00 RBC 3.03 M/mm3 (3.65-5.03) L 11/14/16 05:00 Hgb 8.2 gm/dl (10.1-14.3) L 11/14/16 05:00 Hct 25.5 % (30.3-42.9) L 11/14/16 05:00 MCV 84 fl (79-97) 11/14/16 05:00 MCH 27 pg (28-32) L 11/14/16 05:00 MCHC 32 % (30-34) 11/14/16 05:00 RDW 18.8 % (13.2-15.2) H 11/14/16 05:00 Plt Count 417 K/mm3 (140-440) 11/14/16 05:00 Lymph % (Auto) 6.4 % (13.4-35.0) L 11/14/16 05:00 [place] % (Auto) 7.3 % (0.0-7.3) 11/14/16 05:00 Eos % (Auto) 1.2 % (0.0-4.3) 11/14/16 05:00 Baso % (Auto) 0.9 % (0.0-1.8) 11/14/16 05:00 Lymph # 0.8 K/mm3 (1.2-5.4) L 11/14/16 05:00 [place] # 0.9 K/mm3 (0.0-0.8) H 11/14/16 05:00 Eos # 0.1 K/mm3 (0.0-0.4) 11/14/16 05:00 Baso # 0.1 K/mm3 (0.0-0.1) 11/14/16 05:00 Add Manual Diff Complete 11/10/16 04:38 Total Counted 100 11/10/16 04:38 Seg Neutrophils % 84.2 % (40.0-70.0) H 11/14/16 05:00 Seg Neuts % (Manual) 68.0 % (40.0-70.0) 11/10/16 04:38 Band Neutrophils % 6.0 % 11/10/16 04:38 Lymphocytes % (Manual) 12.0 % (13.4-35.0) L 11/10/16 04:38 Reactive Lymphs % (Man) 0 % 11/10/16 04:38 Monocytes % (Manual) 13.0 % (0.0-7.3) H 11/10/16 04:38 Eosinophils % (Manual) 1.0 % (0.0-4.3) 11/10/16 04:38 Basophils % (Manual) 0 % (0.0-1.8) 11/08/16 04:46 Metamyelocytes % 0 % 11/10/16 04:38 Myelocytes % 0 % 11/10/16 04:38 Promyelocytes % 0 % 11/10/16 04:38 Blast Cells % 0 % 11/10/16 04:38 Nucleated RBC % Not Reportable 11/10/16 04:38 Seg Neutrophils # 10.9 K/mm3 (1.8-7.7) H 11/14/16 05:00 Seg Neutrophils # Man 10.2 K/mm3 (1.8-7.7) H 11/10/16 04:38 Band Neutrophils # 0.9 K/mm3 11/10/16 04:38 Lymphocytes # (Manual) 1.8 K/mm3 (1.2-5.4) 11/10/16 04:38 Abs React Lymphs (Man) 0.0 K/mm3 11/10/16 04:38 Monocytes # (Manual) 2.0 K/mm3 (0.0-0.8) H 11/10/16 04:38 Eosinophils # (Manual) 0.2 K/mm3 (0.0-0.4) 11/10/16 04:38 Basophils # (Manual) 0.0 K/mm3 (0.0-0.1) 11/10/16 04:38 Metamyelocytes # 0.0 K/mm3 11/10/16 04:38 Myelocytes # 0.0 K/mm3 11/10/16 04:38 Promyelocytes # 0.0 K/mm3 11/10/16 04:38 Blast Cells # 0.0 K/mm3 11/10/16 04:38 WBC Morphology Not Reportable 11/10/16 04:38 Hypersegmented Neuts Not Reportable 11/10/16 04:38 Hyposegmented Neuts Not Reportable 11/10/16 04:38 Hypogranular Neuts Not Reportable 11/10/16 04:38 Smudge Cells Not Reportable 11/10/16 04:38 Toxic Granulation Not Reportable 11/10/16 04:38 Toxic Vacuolation Not Reportable 11/10/16 04:38 Dohle Bodies Not Reportable 11/10/16 04:38 Pelger-Huet Anomaly Not Reportable 11/10/16 04:38 Aida Rods Not Reportable 11/10/16 04:38 Platelet Estimate Consistent w auto 11/10/16 04:38 Clumped Platelets Not Reportable 11/10/16 04:38 Plt Clumps, EDTA Not Reportable 11/10/16 04:38 Large Platelets Not Reportable 11/10/16 04:38 Giant Platelets Not Reportable 11/10/16 04:38 Platelet Satelliting Not Reportable 11/10/16 04:38 Plt Morphology Comment Not Reportable 11/10/16 04:38 RBC Morphology Not Reportable 11/10/16 04:38 Dimorphic RBCs Not Reportable 11/10/16 04:38 Polychromasia Not Reportable 11/10/16 04:38 Hypochromasia 1+ 11/10/16 04:38 Poikilocytosis Not Reportable 11/10/16 04:38 Anisocytosis 1+ 11/10/16 04:38 Microcytosis Not Reportable 11/10/16 04:38 Macrocytosis Not Reportable 11/10/16 04:38 Spherocytes Not Reportable 11/10/16 04:38 Pappenheimer Bodies Not Reportable 11/10/16 04:38 Sickle Cells Not Reportable 11/10/16 04:38 Target Cells Not Reportable 11/10/16 04:38 Tear Drop Cells Not Reportable 11/10/16 04:38 Ovalocytes Not Reportable 11/10/16 04:38 Helmet Cells Not Reportable 11/10/16 04:38 Munoz-[place] Bodies Not Reportable 11/10/16 04:38 [place] Rings Not Reportable 11/10/16 04:38 [place] Cells Not Reportable 11/10/16 04:38 Bite Cells Not Reportable 11/10/16 04:38 Crenated Cell Not Reportable 11/10/16 04:38 Elliptocytes Not Reportable 11/10/16 04:38 Acanthocytes (Spur) Not Reportable 11/10/16 04:38 Rouleaux Not Reportable 11/10/16 04:38 Hemoglobin C Crystals Not Reportable 11/10/16 04:38 Schistocytes Not Reportable 11/10/16 04:38 Malaria parasites Not Reportable 11/10/16 04:38 Jalil Bodies Not Reportable 11/10/16 04:38 Hem Pathologist Commnt No 11/10/16 04:38 POC ABG pH 7.488 (7.35-7.45) H 11/01/16 05:56 POC ABG pCO2 31.0 (35-45) L 11/01/16 05:56 POC ABG pO2 106 (80-105) H 11/01/16 05:56 POC ABG HCO3 23.5 11/01/16 05:56 POC ABG Total CO2 24 11/01/16 05:56 POC ABG O2 Sat 99 11/01/16 05:56 POC ABG Base Excess 0 11/01/16 05:56 FiO2 40 % 11/01/16 05:56 Sodium 133 mmol/L (137-145) L 11/14/16 05:00 Potassium 4.1 mmol/L (3.6-5.0) 11/14/16 05:00 Chloride 93.5 mmol/L (98-107) L 11/14/16 05:00 Carbon Dioxide 26 mmol/L (22-30) 11/14/16 05:00 Anion Gap 18 mmol/L 11/14/16 05:00 BUN 13 mg/dL (7-17) 11/14/16 05:00 Creatinine 3.1 mg/dL (0.7-1.2) H 11/14/16 05:00 Estimated GFR 17 ml/min 11/14/16 05:00 BUN/Creatinine Ratio 4.19 % 11/14/16 05:00 Glucose 145 mg/dL (65-100) H 11/14/16 05:00 POC Glucose 211 (70-105) H 11/15/16 20:38 Calcium 7.9 mg/dL (8.4-10.2) L 11/14/16 05:00 Phosphorus 3.1 mg/dL (2.5-4.5) 11/02/16 04:36 Magnesium 1.7 mg/dL (1.7-2.3) 11/02/16 04:36 Total Bilirubin 0.6 mg/dL (0.1-1.2) 11/01/16 22:37 AST 44 units/L (5-40) H 11/01/16 22:37 ALT 18 units/L (7-56) 11/01/16 22:37 Alkaline Phosphatase 109 units/L (35-129) 11/01/16 22:37 Total Protein 7.2 g/dL (6.3-8.2) 11/01/16 22:37 Albumin 2.4 g/dL (3.9-5) L 11/01/16 22:37 Albumin/Globulin Ratio 0.5 % 11/01/16 22:37 Urine Color Yellow (Yellow) 10/30/16 00:30 Urine Turbidity Slightly-cloudy (Clear) 10/30/16 00:30 Urine pH 5.0 (5.0-7.0) 10/30/16 00:30 Ur Specific [place] 1.015 (1.003-1.030) 10/30/16 00:30 Urine Protein 100 mg/dl mg/dL (Negative) 10/30/16 00:30 Urine Glucose (UA) Neg mg/dL (Negative) 10/30/16 00:30 Urine Ketones Tr mg/dL (Negative) 10/30/16 00:30 Urine Blood Neg (Negative) 10/30/16 00:30 Urine Nitrite Neg (Negative) 10/30/16 00:30 Urine Bilirubin Neg (Negative) 10/30/16 00:30 Urine Urobilinogen < 2.0 mg/dL (<2.0) 10/30/16 00:30 Ur Leukocyte Esterase Neg (Negative) 10/30/16 00:30 Urine WBC (Auto) 10.0 /HPF (0.0-6.0) H 10/30/16 00:30 Urine RBC (Auto) 2.0 /HPF (0.0-6.0) 10/30/16 00:30 U Epithel Cells (Auto) 6.0 /HPF (0-13.0) 10/30/16 00:30 Amorphous Crystals 1+ 10/30/16 00:30 Hyaline Casts 16 /LPF 10/30/16 00:30 Granular Casts 4 /LPF 10/30/16 00:30 Urine Mucus Few /HPF 10/30/16 00:30 Random Vancomycin 24.7 ug/mL (0-40.0) 11/16/16 12:20 Blood Type B POSITIVE 11/12/16 11:30 Antibody Screen Negative 11/12/16 11:30 Crossmatch See Detail 11/12/16 11:30
--- NOTE | 2016-11-16 18:50 | Magnetic Resonance Report ---
FINAL REPORT PROCEDURE: MR LUMBAR SPINE WO CON TECHNIQUE: Magnetic resonance imaging of the lumbar spine was performed using standard pulse sequences without contrast material. CPT 85229 HISTORY: back pain COMPARISON: No prior studies are available for comparison. FINDINGS: The conus terminates at the at L1 level. No lumbar compression fracture is seen. No pars defect or spondylolisthesis is seen. Motion limits the study. L1-2: Uncovertebral osteophytes cause mild central canal and neural foraminal stenosis. L2-3: Uncovertebral osteophytes and posterior element hypertrophy cause moderate bilateral neural foraminal stenosis. Mild central canal stenosis is seen with thecal sac effacement. L3-4: Edematous changes are seen in the endplates in there is fluid in the disc space. There appears to be abnormal right paraspinous density and findings are worrisome for discitis and osteomyelitis with infectious changes in the right paraspinal soft tissues. Uncovertebral osteophytes and posterior element hypertrophy cause prominent right neural foraminal stenosis with contact and possible compression of the exiting right L3 nerve root. Mild thecal sac effacement is seen and there is moderate left neural foraminal stenosis. L4-5: Posterior element hypertrophy and uncovertebral osteophytes cause moderate neural foraminal stenosis and mild central canal stenosis. L5-S1: Minimal posterior element hypertrophy is seen with mild central disc bulge causing no significant stenosis. Other: None . IMPRESSION: Changes of discitis and osteomyelitis are likely present at L3-4 with right-sided cellulitis in the paraspinous soft tissues. No definite epidural spread of infection is seen. Given the edema in the disc space, a disc abscess is not excluded. Correlation with contrast-enhanced MRI of the lumbar spine is recommended. No areas of thecal sac compression are seen.
[2016-11-17] MEDS: NOVOLOG SUB-Q SCH ×4 (08:00→21:44)
[2016-11-17] MEDS: COREG PO SCH ×2 (10:00→21:09)
[2016-11-17] MEDS: LOVENOX SUB-Q SCH (10:00)
[2016-11-17] MEDS: PROTONIX PO SCH (10:00)
--- NOTE | 2016-11-17 10:23 | Progress Note ---
Assessment and Plan - Patient Problems (1) Line sepsis associated with dialysis catheter Current Visit: Yes Status: Acute Plan to address problem: ID input appreciated. Continue antibiotics (2) MRSA bacteremia Current Visit: Yes Status: Acute Plan to address problem: Repeat blood cultures negative so far. Continue to follow up (3) Discitis of lumbar region Current Visit: Yes Status: Acute Plan to address problem: Discitis and osteomyelitis of L3-L4. Continue antibiotics. ? Surgery imput (4) End-stage renal disease (ESRD) Current Visit: Yes Status: Chronic Plan to address problem: Hemodialysis on a Sunday, Sunday and Sunday schedule. Continue Rx (5) Hypertensive chronic kidney disease with stage 5 chronic kidney disease or end stage renal disease Current Visit: Yes Status: Chronic Plan to address problem: Follow-up blood pressure on current medications (6) Anemia in chronic kidney disease Current Visit: No Status: Chronic Plan to address problem: Give erythropoietin on dialysis. Follow up hemoglobin in the morning. (7) Colostomy in place Current Visit: Yes Status: Acute Plan to address problem: Continue colostomy care (8) Diabetes mellitus type II, controlled Current Visit: No Status: Chronic Qualifiers: Diabetes mellitus complication status: with kidney complications Diabetes mellitus complication detail: D Diabetic retinopathy severity: D Diabetes mellitus macular edema: D Diabetes mellitus penitentiary insulin use: D Chronic kidney disease stage: on chronic dialysis Plan to address problem: Blood sugar management by primary attending Subjective Date of service: 11/17/16 Principal diagnosis: Permacath related bacteremia Interval history: Patient seen lying in bed on dialysis. She complains of back pain. Admits she fell at home before she was admitted to the hospital Q 400/800 UFR 2 L Objective - Exam Narrative Exam: Elderly -Congolese female lying in bed in no acute distress Neck supple, no thyromegaly no jugular venous distention CVS S1-S2 regular rate rhythm without murmur, rub or gallop Chest clear to auscultation Abdomen soft nondistended, OSTOMY intact, No tenderness, no organomegaly no bruit bowel sounds present Extremities no edema no cyanosis or clubbing Neuro awake, alert oriented x3 no gross deficit - Vital Signs Vital signs: Vital Signs - 12hr 11/17/16 11/17/16 11/17/16 00:00 05:53 08:00 Temperature 98.6 F 98.3 F 96.4 F L Pulse Rate Pulse Rate [ 85 85 82 Right Radial] Respiratory 19 18 18 Rate Blood Pressure Blood Pressure 147/67 174/80 154/82 [Right Radial Artery] O2 Sat by Pulse 100 96 99 Oximetry 11/17/16 09:35 Temperature 97.7 F Pulse Rate 74 Pulse Rate [ Right Radial] Respiratory 16 Rate Blood Pressure 134/36 Blood Pressure [Right Radial Artery] O2 Sat by Pulse Oximetry - Lab 11/14/16 05:00 11/14/16 05:00 Most recent lab results Calcium 7.9 mg/dL (8.4-10.2) L 11/14/16 05:00 Phosphorus 3.1 mg/dL (2.5-4.5) 11/02/16 04:36 Magnesium 1.7 mg/dL (1.7-2.3) 11/02/16 04:36
[2016-11-17 10:47] LABS: Hemoglobin 8.2 gm/dl (10.1-14.3); Mean Corpuscular HGB Conc 32 % (30-34); Mean Corpuscular Hemoglobin 27 pg (28-32); Mean Corpuscular Volume 86 fl (79-97); Platelet Count 343 K/mm3 (140-440); Red Blood Count 3.03 M/mm3 (3.65-5.03); Red Cell Distribution Width 18.8 % (13.2-15.2); White Blood Count 10.3 K/mm3 (4.5-11.0)
[2016-11-17 11:04] LABS: BUN/Creatinine Ratio 4.5; Calcium 7.8 mg/dL (8.4-10.2); Chloride 91.5 mmol/L (98-107); Potassium 3.6 mmol/L (3.6-5.0)
[2016-11-17] MEDS: MORPHINE IV PRN (11:56)
--- NOTE | 2016-11-17 12:50 | Progress Note ---
Assessment and Plan Current antibiotics: Vancomycin IV (Pulse doses) 10/30, 11/07 --> Previous antibiotics: Zosyn 4.5 g IV q8h 10/30-10/31 Ceftriaxone 1 g IV q24h 10/30-10/31 Metronidazole 500 mg IV q8h 10/31-11/07 Levaquin 500 mg IV q24h 10/30-11/07 ASSESSMENT: Barbra Babin is an 85 y/o female who lives independently with HTN, type 2 DM, ESRD on maintenance HD, COPD, systolic heart failure (EF 45-50 percent), previous bowel perforation with colostomy (~ 6 years ago) who had been hospitalized at 10/21-10/24 with hypoglycemia. She had been hospitalized approximately 4 weeks earlier with worsening renal failure requiring initiation of HD (M-W-Fr) via a right chest wall PC ( inserted 10/04/16). She re- presents on 10/30 with abdominal and back pain and is found to have with non- visualization of the gallbladder on HIDA scan. 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 Blood cultures are growing MRSA. Problem list: 1. MRSA bacteremia - 10/30:4/4 bottles + -11/06: 3/4 bottles + -Likely right chest wall permacath source. removed 11/08 -Repeat blood cultures on 11/08 No growth -11/07 transthoracic echocardiogram showed vegetation versus fibrin sheath on the catheter -11/17 MRI suggestive of discitis and vertebral osteomyeltis L3-L4 2. Biliary sepsis with acute cholecystitis - s/p open cholecystectomy - 10/31 3. Leukocytosis -2nd to above -Improving 4. ESRD -Maintenance HD -New Vas-Cath placed in right common femoral vein 11/10 5. Back pain -11/17 MRI suggestive of discitis and vertebral osteomyelitis L3-L4 6. Anemia 7. Type 2 diabetes mellitus PLAN: 1. Continue vancomycin 2. Will need prolonged IV antibiotics in light of prolonged MRSA bacteremia and vertebral osteomyelitis 3. Consider neurosurgery evaluation 4. Continued supportive measures Barrie Martinez MD [facility] Office: [phone] Subjective Date of service: 11/17/16 Principal diagnosis: Permacath related bacteremia Interval history: Still complaining of back pain in the lower thoracic region. Appetite "not good. " ROS: No subjective fever or chills. No nausea, vomiting or diarrhea. No shortness of breath, cough or pleuritic chest pain Objective - Exam Narrative Exam: GENERAL: Well-developed, thin female who is alert and in no acute distress. Appears somewhat chronically ill. HEAD: Normocephalic. No lesions seen. Mild by temporalis muscle wasting. EYES: Pupils are equal reactive to light and accommodation. There is no scleral icterus. Optic fundi are not examined. Bilateral arcus senilis. EARS: Normal external ears. THROAT: Oropharynx is normal with no evidence of oral candidiasis or pharyngitis. Somewhat poor dentition. NECK: Supple. No enlargement of the thyroid gland. No significant cervical lymphadenopathy. No jugular venous distention at 30. LUNGS: Clear with no adventitious sounds. CHEST: Previous right sided PermCath site with no signs of infection. HEART: Regular rate. S1 and S2 are normal. There are no murmurs, gallops, clicks or rubs heard. ABDOMEN: Soft with mild right upper quadrant tenderness without guarding or rebound. Liver and spleen are not palpably enlarged or tender. No palpable masses. Bowel sounds are normoactive. Colostomy in place with healthy mucosa and functioning normally. Right upper quadrant abdominal wound healing with no signs of infection. EXTREMITIES: No rash, peripheral lymphadenopathy, clubbing or edema. Right groin Vas-Cath that was placed earlier today. Mild tenderness over upper lumbar spine with no other objective abnormalities. : Normal external female NEUROLOGIC: No focal findings. - Constitutional Vitals: Vital Signs Temp Pulse Resp BP Pulse Ox 97.7 F 71 16 114/54 99 11/17/16 09:35 11/17/16 12:15 11/17/16 11:56 11/17/16 12:15 11/17/16 08:00 Temperature -Last 24 Hours Temperature 97.7 F Temperature 96.4 F Temperature 98.3 F Temperature 98.6 F Temperature 98.5 F Temperature 98.2 F - Labs CBC & Chem 7: 11/17/16 10:35 11/17/16 10:35 Labs: Abnormal lab results Microbiology 11/09/16 12:33 Peripheral/Venous Blood Culture - Preliminary NO GROWTH 11/09/16 12:23 Peripheral/Venous Blood Culture - Preliminary NO GROWTH 11/08/16 13:15 Peripheral/Venous Blood Culture - Preliminary NO GROWTH 11/08/16 Unknown Vascular Cath Catheter Tip Culture - < 15 colonies Staph aureus 11/06/16 Unknown Peripheral/Venous Blood Culture - Final Methicillin Resist S. Aureus (1/2 bottles) 11/06/16 Unknown Peripheral/Venous Blood Culture - Preliminary Methicillin Resist S. Aureus (2/2 bottles) 10/30/16 01:13 Peripheral/Venous Blood Culture - Final Methicillin Resist S. Aureus (2/2 bottles) 10/30/16 01:13 Peripheral/Venous Blood Culture - Final Methicillin Resist S. Aureus (2/2 bottles) Imagin11/16/16: MR of the lumbar spine: L3-L4: Edematous changes are seen in the endplates or appears to be abnormal right paraspinous density in findings suggestive of discitis and osteomyelitis.
[2016-11-17] MEDS: HEPARIN IV PRN (12:57)
--- NOTE | 2016-11-17 21:08 | Progress Note ---
Assessment and Plan - Patient Problems (1) MRSA bacteremia Current Visit: Yes Status: Acute Plan to address problem: ID consulted, continue abx, awaiting final culture results. (2) Acute cholecystitis Current Visit: Yes Status: Resolved Plan to address problem: IV abx, Surgery consulted, NPO, supportive care, S/P Lap ko, (3) End-stage renal disease (ESRD) Current Visit: Yes Status: Chronic Plan to address problem: Nephrology consulted, dialysis as per renal team. (4) Acute on chronic renal failure Current Visit: No Status: Acute Plan to address problem: Nephrology consulted, supportive care, monitor uop q shift. (5) Chronic systolic heart failure Current Visit: No Status: Chronic Plan to address problem: Telemetry monitoring, supportive care, (6) Diabetes mellitus type II, controlled Current Visit: No Status: Chronic Qualifiers: Diabetes mellitus complication status: with kidney complications Diabetes mellitus complication detail: D Diabetic retinopathy severity: D Diabetes mellitus macular edema: D Diabetes mellitus video rental clerk insulin use: D Chronic kidney disease stage: on chronic dialysis Plan to address problem: ADA diet, insulin, accu check (7) Debility Current Visit: Yes Status: Acute Plan to address problem: PT consulted, Pending placement. (8) DVT prophylaxis Current Visit: No Status: Acute History Interval history: Pt lying in bed, No reported nursing events. Pt lethargic, fragile, No reported nursing events. Pt more alert today. Pt medically optimized. Case management consulted. Pt medically optimized. D/C to SNF/Hospice. Hospitalist Physical - Constitutional Vitals: Temp Pulse Resp BP Pulse Ox 97.7 F 80 20 163/93 97 11/17/16 16:30 11/17/16 18:00 11/17/16 16:30 11/17/16 16:30 11/17/16 16:30 General appearance: Present: no acute distress, cachectic - EENT Eyes: Present: PERRL ENT: hearing intact - Neck Neck: Present: supple - Respiratory Respiratory: bilateral: diminished - Cardiovascular Rhythm: regular Heart Sounds: Present: S1 & S2 - Extremities Extremities: no ischemia Peripheral Pulses: within normal limits - Abdominal General gastrointestinal: soft, non-tender, non-distended - Integumentary Integumentary: Present: clear, dry - Psychiatric Psychiatric: no intact judgment & insight - Neurologic Neurologic: CNII-XII intact Results - Labs CBC & Chem 7: 11/17/16 10:35 11/17/16 10:35 Labs: Laboratory Last Values WBC 10.3 K/mm3 (4.5-11.0) 11/17/16 10:35 RBC 3.03 M/mm3 (3.65-5.03) L 11/17/16 10:35 Hgb 8.2 gm/dl (10.1-14.3) L 11/17/16 10:35 Hct 26.0 % (30.3-42.9) L 11/17/16 10:35 MCV 86 fl (79-97) 11/17/16 10:35 MCH 27 pg (28-32) L 11/17/16 10:35 MCHC 32 % (30-34) 11/17/16 10:35 RDW 18.8 % (13.2-15.2) H 11/17/16 10:35 Plt Count 343 K/mm3 (140-440) 11/17/16 10:35 Lymph % (Auto) 6.4 % (13.4-35.0) L 11/14/16 05:00 [place] % (Auto) 7.3 % (0.0-7.3) 11/14/16 05:00 Eos % (Auto) 1.2 % (0.0-4.3) 11/14/16 05:00 Baso % (Auto) 0.9 % (0.0-1.8) 11/14/16 05:00 Lymph # 0.8 K/mm3 (1.2-5.4) L 11/14/16 05:00 [place] # 0.9 K/mm3 (0.0-0.8) H 11/14/16 05:00 Eos # 0.1 K/mm3 (0.0-0.4) 11/14/16 05:00 Baso # 0.1 K/mm3 (0.0-0.1) 11/14/16 05:00 Add Manual Diff Complete 11/10/16 04:38 Total Counted 100 11/10/16 04:38 Seg Neutrophils % 84.2 % (40.0-70.0) H 11/14/16 05:00 Seg Neuts % (Manual) 68.0 % (40.0-70.0) 11/10/16 04:38 Band Neutrophils % 6.0 % 11/10/16 04:38 Lymphocytes % (Manual) 12.0 % (13.4-35.0) L 11/10/16 04:38 Reactive Lymphs % (Man) 0 % 11/10/16 04:38 Monocytes % (Manual) 13.0 % (0.0-7.3) H 11/10/16 04:38 Eosinophils % (Manual) 1.0 % (0.0-4.3) 11/10/16 04:38 Basophils % (Manual) 0 % (0.0-1.8) 11/08/16 04:46 Metamyelocytes % 0 % 11/10/16 04:38 Myelocytes % 0 % 11/10/16 04:38 Promyelocytes % 0 % 11/10/16 04:38 Blast Cells % 0 % 11/10/16 04:38 Nucleated RBC % Not Reportable 11/10/16 04:38 Seg Neutrophils # 10.9 K/mm3 (1.8-7.7) H 11/14/16 05:00 Seg Neutrophils # Man 10.2 K/mm3 (1.8-7.7) H 11/10/16 04:38 Band Neutrophils # 0.9 K/mm3 11/10/16 04:38 Lymphocytes # (Manual) 1.8 K/mm3 (1.2-5.4) 11/10/16 04:38 Abs React Lymphs (Man) 0.0 K/mm3 11/10/16 04:38 Monocytes # (Manual) 2.0 K/mm3 (0.0-0.8) H 11/10/16 04:38 Eosinophils # (Manual) 0.2 K/mm3 (0.0-0.4) 11/10/16 04:38 Basophils # (Manual) 0.0 K/mm3 (0.0-0.1) 11/10/16 04:38 Metamyelocytes # 0.0 K/mm3 11/10/16 04:38 Myelocytes # 0.0 K/mm3 11/10/16 04:38 Promyelocytes # 0.0 K/mm3 11/10/16 04:38 Blast Cells # 0.0 K/mm3 11/10/16 04:38 WBC Morphology Not Reportable 11/10/16 04:38 Hypersegmented Neuts Not Reportable 11/10/16 04:38 Hyposegmented Neuts Not Reportable 11/10/16 04:38 Hypogranular Neuts Not Reportable 11/10/16 04:38 Smudge Cells Not Reportable 11/10/16 04:38 Toxic Granulation Not Reportable 11/10/16 04:38 Toxic Vacuolation Not Reportable 11/10/16 04:38 Dohle Bodies Not Reportable 11/10/16 04:38 Pelger-Huet Anomaly Not Reportable 11/10/16 04:38 Aida Rods Not Reportable 11/10/16 04:38 Platelet Estimate Consistent w auto 11/10/16 04:38 Clumped Platelets Not Reportable 11/10/16 04:38 Plt Clumps, EDTA Not Reportable 11/10/16 04:38 Large Platelets Not Reportable 11/10/16 04:38 Giant Platelets Not Reportable 11/10/16 04:38 Platelet Satelliting Not Reportable 11/10/16 04:38 Plt Morphology Comment Not Reportable 11/10/16 04:38 RBC Morphology Not Reportable 11/10/16 04:38 Dimorphic RBCs Not Reportable 11/10/16 04:38 Polychromasia Not Reportable 11/10/16 04:38 Hypochromasia 1+ 11/10/16 04:38 Poikilocytosis Not Reportable 11/10/16 04:38 Anisocytosis 1+ 11/10/16 04:38 Microcytosis Not Reportable 11/10/16 04:38 Macrocytosis Not Reportable 11/10/16 04:38 Spherocytes Not Reportable 11/10/16 04:38 Pappenheimer Bodies Not Reportable 11/10/16 04:38 Sickle Cells Not Reportable 11/10/16 04:38 Target Cells Not Reportable 11/10/16 04:38 Tear Drop Cells Not Reportable 11/10/16 04:38 Ovalocytes Not Reportable 11/10/16 04:38 Helmet Cells Not Reportable 11/10/16 04:38 [place] Bodies Not Reportable 11/10/16 04:38 [place] Rings Not Reportable 11/10/16 04:38 [place] Cells Not Reportable 11/10/16 04:38 Bite Cells Not Reportable 11/10/16 04:38 Crenated Cell Not Reportable 11/10/16 04:38 Elliptocytes Not Reportable 11/10/16 04:38 Acanthocytes (Spur) Not Reportable 11/10/16 04:38 Rouleaux Not Reportable 11/10/16 04:38 Hemoglobin C Crystals Not Reportable 11/10/16 04:38 Schistocytes Not Reportable 11/10/16 04:38 Malaria parasites Not Reportable 11/10/16 04:38 [place]al[place] Bodies Not Reportable 11/10/16 04:38 Hem Pathologist Commnt No 11/10/16 04:38 POC ABG pH 7.488 (7.35-7.45) H 11/01/16 05:56 POC ABG pCO2 31.0 (35-45) L 11/01/16 05:56 POC ABG pO2 106 (80-105) H 11/01/16 05:56 POC ABG HCO3 23.5 11/01/16 05:56 POC ABG Total CO2 24 11/01/16 05:56 POC ABG O2 Sat 99 11/01/16 05:56 POC ABG Base Excess 0 11/01/16 05:56 FiO2 40 % 11/01/16 05:56 Sodium 132 mmol/L (137-145) L 11/17/16 10:35 Potassium 3.6 mmol/L (3.6-5.0) 11/17/16 10:35 Chloride 91.5 mmol/L (98-107) L 11/17/16 10:35 Carbon Dioxide 26 mmol/L (22-30) 11/17/16 10:35 Anion Gap 18 mmol/L 11/17/16 10:35 BUN 9 mg/dL (7-17) 11/17/16 10:35 Creatinine 2.0 mg/dL (0.7-1.2) H 11/17/16 10:35 Estimated GFR 29 ml/min 11/17/16 10:35 BUN/Creatinine Ratio 4.50 % 11/17/16 10:35 Glucose 172 mg/dL (65-100) H 11/17/16 10:35 POC Glucose 150 (70-105) H 11/16/16 22:00 Calcium 7.8 mg/dL (8.4-10.2) L 11/17/16 10:35 Phosphorus 3.1 mg/dL (2.5-4.5) 11/02/16 04:36 Magnesium 1.7 mg/dL (1.7-2.3) 11/02/16 04:36 Total Bilirubin 0.6 mg/dL (0.1-1.2) 11/01/16 22:37 AST 44 units/L (5-40) H 11/01/16 22:37 ALT 18 units/L (7-56) 11/01/16 22:37 Alkaline Phosphatase 109 units/L (35-129) 11/01/16 22:37 Total Protein 7.2 g/dL (6.3-8.2) 11/01/16 22:37 Albumin 2.4 g/dL (3.9-5) L 11/01/16 22:37 Albumin/Globulin Ratio 0.5 % 11/01/16 22:37 Urine Color Yellow (Yellow) 10/30/16 00:30 Urine Turbidity Slightly-cloudy (Clear) 10/30/16 00:30 Urine pH 5.0 (5.0-7.0) 10/30/16 00:30 Ur Specific [place] 1.015 (1.003-1.030) 10/30/16 00:30 Urine Protein 100 mg/dl mg/dL (Negative) 10/30/16 00:30 Urine Glucose (UA) Neg mg/dL (Negative) 10/30/16 00:30 Urine Ketones Tr mg/dL (Negative) 10/30/16 00:30 Urine Blood Neg (Negative) 10/30/16 00:30 Urine Nitrite Neg (Negative) 10/30/16 00:30 Urine Bilirubin Neg (Negative) 10/30/16 00:30 Urine Urobilinogen < 2.0 mg/dL (<2.0) 10/30/16 00:30 Ur Leukocyte Esterase Neg (Negative) 10/30/16 00:30 Urine WBC (Auto) 10.0 /HPF (0.0-6.0) H 10/30/16 00:30 Urine RBC (Auto) 2.0 /HPF (0.0-6.0) 10/30/16 00:30 U Epithel Cells (Auto) 6.0 /HPF (0-13.0) 10/30/16 00:30 Amorphous Crystals 1+ 10/30/16 00:30 Hyaline Casts 16 /LPF 10/30/16 00:30 Granular Casts 4 /LPF 10/30/16 00:30 Urine Mucus Few /HPF 10/30/16 00:30 Random Vancomycin 22.5 ug/mL (0-40.0) 11/17/16 05:00 Blood Type B POSITIVE 11/12/16 11:30 Antibody Screen Negative 11/12/16 11:30 Crossmatch See Detail 11/12/16 11:30
[2016-11-17] MEDS: VANCOMYCIN VIAL 750 MG in NACL 0.9% 250ML 250 ML IV SCH (21:42)
[2016-11-18] MEDS: NOVOLOG SUB-Q SCH ×4 (07:58→22:04)
--- NOTE | 2016-11-18 09:30 | Progress Note ---
Assessment and Plan (1) Line sepsis associated with dialysis catheter Current Visit: Yes Status: Acute Plan to address problem: ID recommendations noted. Continue antibiotics (2) MRSA bacteremia Current Visit: Yes Status: Acute Plan to address problem: Repeat blood cultures negative so far. Continue to follow up (3) Discitis of lumbar region Current Visit: Yes Status: Acute Plan to address problem: Discitis and osteomyelitis of L3-L4. Continue antibiotics. Neurosurgery consult pending (4) End-stage renal disease (ESRD) Current Visit: Yes Status: Chronic Plan to address problem: Hemodialysis on a Sunday, Sunday and Sunday schedule. (5) Hypertensive chronic kidney disease with stage 5 chronic kidney disease or end stage renal disease Current Visit: Yes Status: Chronic Plan to address problem: Follow-up blood pressure on current medications (6) Anemia in chronic kidney disease Current Visit: No Status: Chronic Plan to address problem: Give erythropoietin on dialysis. Hgb stable at 8.2. 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 Pain controlled. Objective - Exam Narrative Exam: G/A: Patient lying in bed, no apparent distress HEENT: Normocephalic, atraumatic, pupils equally round and reactive to light, extraocular movement intact, and no sclericterus,. No JVD or thyromegaly or nodule,neck supple, no carotid bruit ,mucous membranes moist, no exudate or erythema, permcath in place. No tenderness/erythema at exit site Heart: S1, S2, regular rate and rhythm Lungs: Clear to auscultation bilaterally, breathing comfortable Abdomen: Positive bowel sounds, tender on the right side, nondistended, no organomegaly Extremity: No edema, cyanosis, clubbing Skin: No rash, nodules, warm, dry Neuro: Oriented 3, cranial nerves II-12 intact, speech is fluent, motor and sensory intact - Vital Signs Vital signs: Vital Signs - 12hr 11/17/16 11/18/16 11/18/16 22:00 00:02 04:47 Temperature 97.6 F Pulse Rate 86 Pulse Rate [ 91 H 90 Right Radial] Respiratory 20 22 Rate Blood Pressure 147/72 143/67 [Right Radial Artery] O2 Sat by Pulse 100 99 Oximetry 11/18/16 11/18/16 08:03 09:23 Temperature 98.1 F Pulse Rate 96 H Pulse Rate [ 96 H Right Radial] Respiratory 20 Rate Blood Pressure 144/76 [Right Radial Artery] O2 Sat by Pulse 96 96 Oximetry - Lab 11/17/16 10:35 11/17/16 10:35 Most recent lab results Calcium 7.8 mg/dL (8.4-10.2) L 11/17/16 10:35 Phosphorus 3.1 mg/dL (2.5-4.5) 11/02/16 04:36 Magnesium 1.7 mg/dL (1.7-2.3) 11/02/16 04:36
[2016-11-18] MEDS: COREG PO SCH ×2 (10:51→22:04)
[2016-11-18] MEDS: PROTONIX PO SCH (10:52)
[2016-11-18] MEDS: LOVENOX SUB-Q SCH (10:52)
--- NOTE | 2016-11-18 12:03 | Progress Note ---
Assessment and Plan Current antibiotics: Vancomycin IV (Pulse doses) 10/30, 11/07 --> Previous antibiotics: Zosyn 4.5 g IV q8h 10/30-10/31 Ceftriaxone 1 g IV q24h 10/30-10/31 Metronidazole 500 mg IV q8h 10/31-11/07 Levaquin 500 mg IV q24h 10/30-11/07 ASSESSMENT: Barbra Babin is an 85 y/o female who lives independently with HTN, type 2 DM, ESRD on maintenance HD, COPD, systolic heart failure (EF 45-50 percent), previous bowel perforation with colostomy (~ 6 years ago) who had been hospitalized at 10/21-10/24 with hypoglycemia. She had been hospitalized approximately 4 weeks earlier with worsening renal failure requiring initiation of HD (M-W-Fr) via a right chest wall PC ( inserted 10/04/16). She re- presents on 10/30 with abdominal and back pain and is found to have with non- visualization of the gallbladder on HIDA scan. 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 Blood cultures are growing MRSA. Problem list: 1. MRSA bacteremia - 10/30:4/4 bottles + -11/06: 3/4 bottles + -Likely right chest wall permacath source. removed 11/08 -Repeat blood cultures on 11/08 No growth -11/07 transthoracic echocardiogram showed vegetation versus fibrin sheath on the catheter -11/17 MRI suggestive of discitis and vertebral osteomyeltis L3-L4 2. Biliary sepsis with acute cholecystitis - s/p open cholecystectomy - 10/31 3. Leukocytosis -2nd to above -Improving 4. ESRD -Maintenance HD -New Vas-Cath placed in right common femoral vein 11/10 5. Back pain -11/17 MRI suggestive of discitis and vertebral osteomyelitis L3-L4 6. Anemia 7. Type 2 diabetes mellitus PLAN: 1. Continue vancomycin 2. Will need prolonged IV antibiotics in light of prolonged MRSA bacteremia and vertebral osteomyelitis 3. Consider neurosurgery evaluation 4. Continued supportive measures Barrie Martinez MD [facility] Office: [phone] Subjective Date of service: 11/18/16 Principal diagnosis: Permacath related bacteremia Interval history: Still complaining of back pain in the lower thoracic region. Appetite "not good. " Patient initially was asleep but wakes easily with tactile stimulation ROS: No subjective fever or chills. No nausea, vomiting or diarrhea. No shortness of breath, cough or pleuritic chest pain Objective - Exam Narrative Exam: GENERAL: Well-developed, thin female who is alert and in no acute distress. Appears somewhat chronically ill. HEAD: Normocephalic. No lesions seen. Mild by temporalis muscle wasting. EYES: Pupils are equal reactive to light and accommodation. There is no scleral icterus. Optic fundi are not examined. Bilateral arcus senilis. EARS: Normal external ears without external drainage. THROAT: Oropharynx is normal with no evidence of oral candidiasis or pharyngitis. Somewhat poor dentition. NECK: Supple. No enlargement of the thyroid gland. No significant cervical lymphadenopathy. No jugular venous distention at 30. LUNGS: Clear with no adventitious sounds. CHEST: Previous right sided PermCath site with no signs of infection. HEART: Regular rate. S1 and S2 are normal. There are no murmurs, gallops, clicks or rubs heard. ABDOMEN: Soft with mild right upper quadrant tenderness without guarding or rebound. Liver and spleen are not palpably enlarged or tender. No palpable masses. Bowel sounds are normoactive. Colostomy in place with healthy mucosa and functioning normally. Right upper quadrant abdominal wound healing with no signs of infection. EXTREMITIES: No rash, peripheral lymphadenopathy, clubbing or edema. Right groin Vas-Cath that was placed earlier today. Mild tenderness over upper lumbar spine with no other objective abnormalities. : Deferred NEUROLOGIC: No focal findings. - Constitutional Vitals: Vital Signs Temp Pulse Resp BP Pulse Ox 98.1 F 96 H 20 144/76 96 11/18/16 08:03 11/18/16 09:23 11/18/16 08:03 11/18/16 08:03 11/18/16 09:23 Temperature -Last 24 Hours Temperature 98.1 F Temperature 97.6 F Temperature 97.4 F Temperature 97.7 F Temperature 98.4 F - Labs CBC & Chem 7: 11/17/16 10:35 11/17/16 10:35 Labs: Abnormal lab results Microbiology 11/09/16 12:33 Peripheral/Venous Blood Culture - Preliminary NO GROWTH 11/09/16 12:23 Peripheral/Venous Blood Culture - Preliminary NO GROWTH 11/08/16 13:15 Peripheral/Venous Blood Culture - Preliminary NO GROWTH 11/08/16 Unknown Vascular Cath Catheter Tip Culture - < 15 colonies Staph aureus 11/06/16 Unknown Peripheral/Venous Blood Culture - Final Methicillin Resist S. Aureus (1/2 bottles) 11/06/16 Unknown Peripheral/Venous Blood Culture - Preliminary Methicillin Resist S. Aureus (2/2 bottles) 10/30/16 01:13 Peripheral/Venous Blood Culture - Final Methicillin Resist S. Aureus (2/2 bottles) 10/30/16 01:13 Peripheral/Venous Blood Culture - Final Methicillin Resist S. Aureus (2/2 bottles) Imagin11/16/16: MR of the lumbar spine: L3-L4: Edematous changes are seen in the endplates or appears to be abnormal right paraspinous density in findings suggestive of discitis and osteomyelitis.
[2016-11-18] MEDS: MORPHINE IV PRN (22:29)
--- NOTE | 2016-11-19 07:33 | Progress Note ---
Assessment and Plan - Patient Problems (1) MRSA bacteremia Current Visit: Yes Status: Acute Plan to address problem: ID consulted, continue abx, awaiting final culture results. (2) Acute cholecystitis Current Visit: Yes Status: Resolved (3) End-stage renal disease (ESRD) Current Visit: Yes Status: Chronic Plan to address problem: Nephrology consulted, dialysis as per renal team. (4) Acute on chronic renal failure Current Visit: No Status: Acute Plan to address problem: Nephrology consulted, supportive care, monitor uop q shift. (5) Chronic systolic heart failure Current Visit: No Status: Chronic Plan to address problem: Telemetry monitoring, supportive care, (6) Diabetes mellitus type II, controlled Current Visit: No Status: Chronic Qualifiers: Diabetes mellitus complication status: with kidney complications Diabetes mellitus complication detail: D Diabetic retinopathy severity: D Diabetes mellitus macular edema: D Diabetes mellitus half-way insulin use: D Chronic kidney disease stage: on chronic dialysis Plan to address problem: ADA diet, insulin, accu check (7) Debility Current Visit: Yes Status: Acute Plan to address problem: PT consulted, Pending placement. (8) Osteomyelitis Current Visit: Yes Status: Acute Qualifiers: Osteomyelitis location: O Laterality: L Chronicity: C Plan to address problem: D/C with IV abx as per ID recommendations, supportive care. (9) DVT prophylaxis Current Visit: No Status: Acute History Interval history: Pt lying in bed, No reported nursing events. Pt lethargic, fragile, No reported nursing events. Pt more alert today. Pt medically optimized. Case management consulted. Pt medically optimized. D/C to SNF/Hospice. Hospitalist Physical - Constitutional Vitals: Temp Pulse Resp BP Pulse Ox 98.7 F 94 H 20 134/70 98 11/19/16 07:17 11/19/16 07:17 11/19/16 07:17 11/19/16 07:17 11/19/16 07:17 General appearance: Present: no acute distress, cachectic - EENT Eyes: Present: PERRL ENT: hearing intact - Neck Neck: Present: supple - Respiratory Respiratory: bilateral: diminished - Cardiovascular Rhythm: regular Heart Sounds: Present: S1 & S2 - Extremities Extremity abnormal: edema Peripheral Pulses: within normal limits - Abdominal General gastrointestinal: soft, non-tender, non-distended - Integumentary Integumentary: Present: clear, dry - Psychiatric Psychiatric: appropriate mood/affect, cooperative - Neurologic Neurologic: no gait normal Results - Labs CBC & Chem 7: 11/17/16 10:35 11/17/16 10:35 Labs: Laboratory Last Values WBC 10.3 K/mm3 (4.5-11.0) 11/17/16 10:35 RBC 3.03 M/mm3 (3.65-5.03) L 11/17/16 10:35 Hgb 8.2 gm/dl (10.1-14.3) L 11/17/16 10:35 Hct 26.0 % (30.3-42.9) L 11/17/16 10:35 MCV 86 fl (79-97) 11/17/16 10:35 MCH 27 pg (28-32) L 11/17/16 10:35 MCHC 32 % (30-34) 11/17/16 10:35 RDW 18.8 % (13.2-15.2) H 11/17/16 10:35 Plt Count 343 K/mm3 (140-440) 11/17/16 10:35 Lymph % (Auto) 6.4 % (13.4-35.0) L 11/14/16 05:00 [place] % (Auto) 7.3 % (0.0-7.3) 11/14/16 05:00 Eos % (Auto) 1.2 % (0.0-4.3) 11/14/16 05:00 Baso % (Auto) 0.9 % (0.0-1.8) 11/14/16 05:00 Lymph # 0.8 K/mm3 (1.2-5.4) L 11/14/16 05:00 [place] # 0.9 K/mm3 (0.0-0.8) H 11/14/16 05:00 Eos # 0.1 K/mm3 (0.0-0.4) 11/14/16 05:00 Baso # 0.1 K/mm3 (0.0-0.1) 11/14/16 05:00 Add Manual Diff Complete 11/10/16 04:38 Total Counted 100 11/10/16 04:38 Seg Neutrophils % 84.2 % (40.0-70.0) H 11/14/16 05:00 Seg Neuts % (Manual) 68.0 % (40.0-70.0) 11/10/16 04:38 Band Neutrophils % 6.0 % 11/10/16 04:38 Lymphocytes % (Manual) 12.0 % (13.4-35.0) L 11/10/16 04:38 Reactive Lymphs % (Man) 0 % 11/10/16 04:38 Monocytes % (Manual) 13.0 % (0.0-7.3) H 11/10/16 04:38 Eosinophils % (Manual) 1.0 % (0.0-4.3) 11/10/16 04:38 Basophils % (Manual) 0 % (0.0-1.8) 11/08/16 04:46 Metamyelocytes % 0 % 11/10/16 04:38 Myelocytes % 0 % 11/10/16 04:38 Promyelocytes % 0 % 11/10/16 04:38 Blast Cells % 0 % 11/10/16 04:38 Nucleated RBC % Not Reportable 11/10/16 04:38 Seg Neutrophils # 10.9 K/mm3 (1.8-7.7) H 11/14/16 05:00 Seg Neutrophils # Man 10.2 K/mm3 (1.8-7.7) H 11/10/16 04:38 Band Neutrophils # 0.9 K/mm3 11/10/16 04:38 Lymphocytes # (Manual) 1.8 K/mm3 (1.2-5.4) 11/10/16 04:38 Abs React Lymphs (Man) 0.0 K/mm3 11/10/16 04:38 Monocytes # (Manual) 2.0 K/mm3 (0.0-0.8) H 11/10/16 04:38 Eosinophils # (Manual) 0.2 K/mm3 (0.0-0.4) 11/10/16 04:38 Basophils # (Manual) 0.0 K/mm3 (0.0-0.1) 11/10/16 04:38 Metamyelocytes # 0.0 K/mm3 11/10/16 04:38 Myelocytes # 0.0 K/mm3 11/10/16 04:38 Promyelocytes # 0.0 K/mm3 11/10/16 04:38 Blast Cells # 0.0 K/mm3 11/10/16 04:38 WBC Morphology Not Reportable 11/10/16 04:38 Hypersegmented Neuts Not Reportable 11/10/16 04:38 Hyposegmented Neuts Not Reportable 11/10/16 04:38 Hypogranular Neuts Not Reportable 11/10/16 04:38 Smudge Cells Not Reportable 11/10/16 04:38 Toxic Granulation Not Reportable 11/10/16 04:38 Toxic Vacuolation Not Reportable 11/10/16 04:38 Dohle Bodies Not Reportable 11/10/16 04:38 Pelger-Huet Anomaly Not Reportable 11/10/16 04:38 Aida Rods Not Reportable 11/10/16 04:38 Platelet Estimate Consistent w auto 11/10/16 04:38 Clumped Platelets Not Reportable 11/10/16 04:38 Plt Clumps, EDTA Not Reportable 11/10/16 04:38 Large Platelets Not Reportable 11/10/16 04:38 Giant Platelets Not Reportable 11/10/16 04:38 Platelet Satelliting Not Reportable 11/10/16 04:38 Plt Morphology Comment Not Reportable 11/10/16 04:38 RBC Morphology Not Reportable 11/10/16 04:38 Dimorphic RBCs Not Reportable 11/10/16 04:38 Polychromasia Not Reportable 11/10/16 04:38 Hypochromasia 1+ 11/10/16 04:38 Poikilocytosis Not Reportable 11/10/16 04:38 Anisocytosis 1+ 11/10/16 04:38 Microcytosis Not Reportable 11/10/16 04:38 Macrocytosis Not Reportable 11/10/16 04:38 Spherocytes Not Reportable 11/10/16 04:38 Pappenheimer Bodies Not Reportable 11/10/16 04:38 Sickle Cells Not Reportable 11/10/16 04:38 Target Cells Not Reportable 11/10/16 04:38 Tear Drop Cells Not Reportable 11/10/16 04:38 Ovalocytes Not Reportable 11/10/16 04:38 Helmet Cells Not Reportable 11/10/16 04:38 Munoz-[place] Bodies Not Reportable 11/10/16 04:38 [place] Rings Not Reportable 11/10/16 04:38 Bernard Cells Not Reportable 11/10/16 04:38 Bite Cells Not Reportable 11/10/16 04:38 Crenated Cell Not Reportable 11/10/16 04:38 Elliptocytes Not Reportable 11/10/16 04:38 Acanthocytes (Spur) Not Reportable 11/10/16 04:38 Rouleaux Not Reportable 11/10/16 04:38 Hemoglobin C Crystals Not Reportable 11/10/16 04:38 Schistocytes Not Reportable 11/10/16 04:38 Malaria parasites Not Reportable 11/10/16 04:38 Jalil Bodies Not Reportable 11/10/16 04:38 Hem Pathologist Commnt No 11/10/16 04:38 POC ABG pH 7.488 (7.35-7.45) H 11/01/16 05:56 POC ABG pCO2 31.0 (35-45) L 11/01/16 05:56 POC ABG pO2 106 (80-105) H 11/01/16 05:56 POC ABG HCO3 23.5 11/01/16 05:56 POC ABG Total CO2 24 11/01/16 05:56 POC ABG O2 Sat 99 11/01/16 05:56 POC ABG Base Excess 0 11/01/16 05:56 FiO2 40 % 11/01/16 05:56 Sodium 132 mmol/L (137-145) L 11/17/16 10:35 Potassium 3.6 mmol/L (3.6-5.0) 11/17/16 10:35 Chloride 91.5 mmol/L (98-107) L 11/17/16 10:35 Carbon Dioxide 26 mmol/L (22-30) 11/17/16 10:35 Anion Gap 18 mmol/L 11/17/16 10:35 BUN 9 mg/dL (7-17) 11/17/16 10:35 Creatinine 2.0 mg/dL (0.7-1.2) H 11/17/16 10:35 Estimated GFR 29 ml/min 11/17/16 10:35 BUN/Creatinine Ratio 4.50 % 11/17/16 10:35 Glucose 172 mg/dL (65-100) H 11/17/16 10:35 POC Glucose 176 (70-105) H 11/18/16 21:57 Calcium 7.8 mg/dL (8.4-10.2) L 11/17/16 10:35 Phosphorus 3.1 mg/dL (2.5-4.5) 11/02/16 04:36 Magnesium 1.7 mg/dL (1.7-2.3) 11/02/16 04:36 Total Bilirubin 0.6 mg/dL (0.1-1.2) 11/01/16 22:37 AST 44 units/L (5-40) H 11/01/16 22:37 ALT 18 units/L (7-56) 11/01/16 22:37 Alkaline Phosphatase 109 units/L (35-129) 11/01/16 22:37 Total Protein 7.2 g/dL (6.3-8.2) 11/01/16 22:37 Albumin 2.4 g/dL (3.9-5) L 11/01/16 22:37 Albumin/Globulin Ratio 0.5 % 11/01/16 22:37 Urine Color Yellow (Yellow) 10/30/16 00:30 Urine Turbidity Slightly-cloudy (Clear) 10/30/16 00:30 Urine pH 5.0 (5.0-7.0) 10/30/16 00:30 Ur Specific Mcgrath 1.015 (1.003-1.030) 10/30/16 00:30 Urine Protein 100 mg/dl mg/dL (Negative) 10/30/16 00:30 Urine Glucose (UA) Neg mg/dL (Negative) 10/30/16 00:30 Urine Ketones Tr mg/dL (Negative) 10/30/16 00:30 Urine Blood Neg (Negative) 10/30/16 00:30 Urine Nitrite Neg (Negative) 10/30/16 00:30 Urine Bilirubin Neg (Negative) 10/30/16 00:30 Urine Urobilinogen < 2.0 mg/dL (<2.0) 10/30/16 00:30 Ur Leukocyte Esterase Neg (Negative) 10/30/16 00:30 Urine WBC (Auto) 10.0 /HPF (0.0-6.0) H 10/30/16 00:30 Urine RBC (Auto) 2.0 /HPF (0.0-6.0) 10/30/16 00:30 U Epithel Cells (Auto) 6.0 /HPF (0-13.0) 10/30/16 00:30 Amorphous Crystals 1+ 10/30/16 00:30 Hyaline Casts 16 /LPF 10/30/16 00:30 Granular Casts 4 /LPF 10/30/16 00:30 Urine Mucus Few /HPF 10/30/16 00:30 Random Vancomycin 22.5 ug/mL (0-40.0) 11/17/16 05:00 Blood Type B POSITIVE 11/12/16 11:30 Antibody Screen Negative 11/12/16 11:30 Crossmatch See Detail 11/12/16 11:30
[2016-11-19] MEDS: LOVENOX SUB-Q SCH (10:37)
[2016-11-19] MEDS: PROTONIX PO SCH (10:38)
[2016-11-19] MEDS: COREG PO SCH ×2 (10:38→22:26)
[2016-11-19] MEDS: NOVOLOG SUB-Q SCH ×4 (10:41→20:27)
--- NOTE | 2016-11-19 11:02 | Progress Note ---
Assessment and Plan (1) Line sepsis associated with dialysis catheter/MRSA bactremia Current Visit: Yes Status: Acute Plan to address problem: Continue antibiotics Will f/u ID recs. (2) Discitis of lumbar region Current Visit: Yes Status: Acute Plan to address problem: Discitis and osteomyelitis of L3-L4. Continue antibiotics. Neurosurgery consult pending (3) End-stage renal disease (ESRD) Current Visit: Yes Status: Chronic Plan to address problem: Next HD on Sunday (4) Hypertensive chronic kidney disease with stage 5 chronic kidney disease or end stage renal disease Current Visit: Yes Status: Chronic Plan to address problem: Follow-up blood pressure on current medications (5) Anemia in chronic kidney disease Current Visit: No Status: Chronic Plan to address problem: Give erythropoietin on dialysis. Hgb stable at 8.2. (6) Diabetes mellitus type II, controlled Current Visit: No Status: Chronic Qualifiers: Diabetes mellitus complication status: with kidney complications Diabetes mellitus complication detail: D Diabetic retinopathy severity: D Diabetes mellitus macular edema: D Diabetes mellitus long-term insulin use: D Chronic kidney disease stage: on chronic dialysis Plan to address problem: Blood sugar management by primary attending Subjective Date of service: 11/19/16 Principal diagnosis: Permacath related bacteremia Interval history: No new changes Objective - Exam Narrative Exam: G/A: Patient lying in bed, no apparent distress HEENT: Normocephalic, atraumatic, pupils equally round and reactive to light, extraocular movement intact, and no sclericterus,. No JVD or thyromegaly or nodule,neck supple, no carotid bruit ,mucous membranes moist, no exudate or erythema, permcath in place. No tenderness/erythema at exit site Heart: S1, S2, regular rate and rhythm Lungs: Clear to auscultation bilaterally, breathing comfortable Abdomen: Positive bowel sounds, tender on the right side, nondistended, no organomegaly Extremity: No edema, cyanosis, clubbing Skin: No rash, nodules, warm, dry Neuro: Oriented 3, cranial nerves II-12 intact, speech is fluent, motor and sensory intact - Vital Signs Vital signs: Vital Signs - 12hr 11/19/16 11/19/16 11/19/16 00:48 05:06 07:17 Temperature 99.4 F 98.3 F 98.7 F Pulse Rate Pulse Rate [ 92 H 94 H 94 H Right Radial] Respiratory 18 16 20 Rate Blood Pressure 146/81 153/70 134/70 [Right Radial Artery] O2 Sat by Pulse 96 98 98 Oximetry 11/19/16 10:38 Temperature Pulse Rate 84 Pulse Rate [ Right Radial] Respiratory Rate Blood Pressure [Right Radial Artery] O2 Sat by Pulse Oximetry - Lab 11/17/16 10:35 11/17/16 10:35 Most recent lab results Calcium 7.8 mg/dL (8.4-10.2) L 11/17/16 10:35 Phosphorus 3.1 mg/dL (2.5-4.5) 11/02/16 04:36 Magnesium 1.7 mg/dL (1.7-2.3) 11/02/16 04:36
[2016-11-20] MEDS: NOVOLOG SUB-Q SCH ×5 (06:43→22:12)
--- NOTE | 2016-11-20 10:08 | Progress Note ---
Assessment and Plan (1) Line sepsis associated with dialysis catheter/MRSA bactremia Current Visit: Yes Status: Acute Plan to address problem: Continue antibiotics (2) Discitis of lumbar region Current Visit: Yes Status: Acute Plan to address problem: Discitis and osteomyelitis of L3-L4. Continue antibiotics. Neurosurgery consult pending (3) End-stage renal disease (ESRD) Current Visit: Yes Status: Chronic Plan to address problem: HD today. 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 Follow-up blood pressure on current medications (5) Anemia in chronic kidney disease Current Visit: No Status: Chronic Plan to address problem: Give erythropoietin on dialysis. Hgb stable at 8.2. 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 NO SOB/CP Objective - Exam Narrative Exam: G/A: Patient lying in bed, no apparent distress HEENT: Normocephalic, atraumatic, pupils equally round and reactive to light, extraocular movement intact, and no sclericterus,. No JVD or thyromegaly or nodule,neck supple, no carotid bruit ,mucous membranes moist, no exudate or erythema, permcath in place. No tenderness/erythema at exit site Heart: S1, S2, regular rate and rhythm Lungs: Clear to auscultation bilaterally, breathing comfortable Abdomen: Positive bowel sounds, tender on the right side, nondistended, no organomegaly Extremity: No edema, cyanosis, clubbing Skin: No rash, nodules, warm, dry Neuro: Oriented 3, cranial nerves II-12 intact, speech is fluent, motor and sensory intact - Vital Signs Vital signs: Vital Signs - 12hr 11/19/16 11/20/16 11/20/16 22:26 00:04 05:13 Temperature 97.6 F 98.3 F Pulse Rate Pulse Rate [ 100 H 100 H Right Radial] Respiratory 18 18 Rate Blood Pressure 148/80 Blood Pressure 128/63 121/68 [Right Radial Artery] O2 Sat by Pulse 98 98 Oximetry 11/20/16 11/20/16 07:25 08:06 Temperature 98.0 F Pulse Rate 87 Pulse Rate [ 92 H Right Radial] Respiratory 20 Rate Blood Pressure Blood Pressure 162/94 [Right Radial Artery] O2 Sat by Pulse 99 Oximetry - Lab 11/17/16 10:35 11/17/16 10:35 Most recent lab results Calcium 7.8 mg/dL (8.4-10.2) L 11/17/16 10:35 Phosphorus 3.1 mg/dL (2.5-4.5) 11/02/16 04:36 Magnesium 1.7 mg/dL (1.7-2.3) 11/02/16 04:36
[2016-11-20] MEDS: COREG PO SCH ×2 (10:45→22:08)
--- NOTE | 2016-11-20 10:49 | Progress Note ---
Assessment and Plan Current antibiotics: Vancomycin IV (Pulse doses) 10/30, 11/07 --> Previous antibiotics: Zosyn 4.5 g IV q8h 10/30-10/31 Ceftriaxone 1 g IV q24h 10/30-10/31 Metronidazole 500 mg IV q8h 10/31-11/07 Levaquin 500 mg IV q24h 10/30-11/07 ASSESSMENT: Barbra Babin is an 85 y/o female who lives independently with HTN, type 2 DM, ESRD on maintenance HD, COPD, systolic heart failure (EF 45-50 percent), previous bowel perforation with colostomy (~ 6 years ago) who had been hospitalized at 10/21-10/24 with hypoglycemia. She had been hospitalized approximately 4 weeks earlier with worsening renal failure requiring initiation of HD (M-W-Fr) via a right chest wall PC ( inserted 10/04/16). She re- presents on 10/30 with abdominal and back pain and is found to have with non- visualization of the gallbladder on HIDA scan. 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 Blood cultures are growing MRSA. Problem list: 1. MRSA bacteremia - 10/30:4/4 bottles + -11/06: 3/4 bottles + -Likely right chest wall permacath source. removed 11/08 -Repeat blood cultures on 11/08 No growth -11/07 transthoracic echocardiogram showed vegetation versus fibrin sheath on the catheter -11/17 MRI suggestive of discitis and vertebral osteomyeltis L3-L4 2. Biliary sepsis with acute cholecystitis - s/p open cholecystectomy - 10/31 3. Leukocytosis -2nd to above -Improving 4. ESRD -Maintenance HD -New Vas-Cath placed in right common femoral vein 11/10 5. Back pain -11/17 MRI suggestive of discitis and vertebral osteomyelitis L3-L4 6. Anemia 7. Type 2 diabetes mellitus PLAN: 1. Continue vancomycin 2. Will need prolonged IV antibiotics in light of prolonged MRSA bacteremia and vertebral osteomyelitis 3. Consider neurosurgery evaluation 4. Continued supportive measures Barrie Martinez MD [facility] Office: [phone] Subjective Date of service: 11/20/16 Principal diagnosis: Permacath related bacteremia; Discitis/vertebral osteomyelitis Interval history: seen in HD. Back pain is "no better and maybe a little worse." Appetite "not good." ROS: No subjective fever or chills. No nausea, vomiting or diarrhea. No shortness of breath, cough or pleuritic chest pain Objective - Exam Narrative Exam: GENERAL: Well-developed, thin female who is alert and in no acute distress. Appears somewhat chronically ill. HEAD: Normocephalic. No lesions seen. Mild by temporalis muscle wasting. EYES: Pupils are equal reactive to light and accommodation. There is no scleral icterus. Optic fundi are not examined. Bilateral arcus senilis. EARS: Normal external ears without external drainage. THROAT: Oropharynx is normal with no evidence of oral candidiasis or pharyngitis. Somewhat poor dentition. NECK: Supple. No enlargement of the thyroid gland. No significant cervical lymphadenopathy. No jugular venous distention at 30. LUNGS: Clear with no adventitious sounds. CHEST: Previous right sided PermCath site with no signs of infection. HEART: Regular rate. S1 and S2 are normal. There are no murmurs, gallops, clicks or rubs heard. ABDOMEN: Soft with mild right upper quadrant tenderness without guarding or rebound. Liver and spleen are not palpably enlarged or tender. No palpable masses. Bowel sounds are normoactive. Colostomy in place with healthy mucosa and functioning normally. Right upper quadrant abdominal wound healing with no signs of infection. EXTREMITIES: No rash, peripheral lymphadenopathy, clubbing or edema. Right groin Vas-Cath in place. Mild tenderness over upper lumbar spine with no other objective abnormalities. : Not examined today NEUROLOGIC: No focal findings. - Constitutional Vitals: Vital Signs Temp Pulse Resp BP Pulse Ox 98.2 F 94 H 16 139/69 99 11/20/16 09:55 11/20/16 10:15 11/20/16 09:55 11/20/16 10:15 11/20/16 07:25 Temperature -Last 24 Hours Temperature 98.2 F Temperature 98.0 F Temperature 98.3 F Temperature 97.6 F Temperature 98.5 F Temperature 99.3 F - Labs CBC & Chem 7: 11/17/16 10:35 11/17/16 10:35 Labs: Abnormal lab results Microbiology 11/09/16 12:33 Peripheral/Venous Blood Culture - Preliminary NO GROWTH 11/09/16 12:23 Peripheral/Venous Blood Culture - Preliminary NO GROWTH 11/08/16 13:15 Peripheral/Venous Blood Culture - Preliminary NO GROWTH 11/08/16 Unknown Vascular Cath Catheter Tip Culture - < 15 colonies Staph aureus 11/06/16 Unknown Peripheral/Venous Blood Culture - Final Methicillin Resist S. Aureus (1/2 bottles) 11/06/16 Unknown Peripheral/Venous Blood Culture - Preliminary Methicillin Resist S. Aureus (2/2 bottles) 10/30/16 01:13 Peripheral/Venous Blood Culture - Final Methicillin Resist S. Aureus (2/2 bottles) 10/30/16 01:13 Peripheral/Venous Blood Culture - Final Methicillin Resist S. Aureus (2/2 bottles) Imagin11/16/16: MR of the lumbar spine: L3-L4: Edematous changes are seen in the endplates or appears to be abnormal right paraspinous density in findings suggestive of discitis and osteomyelitis.
[2016-11-20] MEDS: HEPARIN IV PRN (13:11)
[2016-11-20] MEDS: PROTONIX PO SCH (13:48)
[2016-11-20] MEDS: LOVENOX SUB-Q SCH (13:49)
--- NOTE | 2016-11-20 14:07 | Discharge Summary ---
Providers - Providers Date of Admission: 10/30/16 02:48 Attending physician: ADRIANA GILL 10/30/16 09:06 Consult to Physician [CONS] Routine Consulting Provider: EVA SHAY Reason For Exam: ESRD on hemodialysis, for dialysis Place consult to:: Nephrology Notified:: office Phone number called:: Was contact made?: Yes If yes, spoke with:: nikhil Time called:: 09:49 10/31/16 18:48 Consult to Dietitian/Nutrition [CONS] Routine Physician Instructions: Reason For Exam: Reason for Consult: Pt needs oral supplement 11/03/16 07:48 Physical Therapy Evaluation and Treat [CONS] Routine Comment: Reason For Exam: eval for skilled needs vs home health 11/05/16 12:57 Consult to Physician [CONS] Routine Consulting Provider: BLANE LUCAS Reason For Exam: surgery Place consult to:: axel Notified:: yes Was contact made?: Yes If yes, spoke with:: Dr Lucas Time called:: 12:58 11/07/16 13:08 Consult to Physician [CONS] Routine Consulting Provider: ESTEFANÍA FOURNIER Reason For Exam: mrsa bacteremia Place consult to:: Dr. Fournier Notified:: [place] GUTIERREZ Phone number called:: Was contact made?: Yes If yes, spoke with:: Tanisha-Office Time called:: 13:23 Primary care physician: PROGRAM [employer]OR [employer] Hospitalization Condition: Stable Disposition: STILL A PATIENT - Discharge Diagnoses (1) MRSA bacteremia Status: Acute (2) Acute cholecystitis Status: Resolved (3) End-stage renal disease (ESRD) Status: Chronic (4) Acute on chronic renal failure Status: Acute (5) Chronic systolic heart failure Status: Chronic (6) Diabetes mellitus type II, controlled Status: Chronic Qualifiers: Diabetes mellitus complication status: with kidney complications Diabetes mellitus complication detail: D Diabetic retinopathy severity: D Diabetes mellitus macular edema: D Diabetes mellitus fci insulin use: D Chronic kidney disease stage: on chronic dialysis (7) Debility Status: Acute (8) Osteomyelitis Status: Acute Qualifiers: Osteomyelitis location: O Laterality: L Chronicity: C (9) DVT prophylaxis Status: Acute Exam - Constitutional Vitals: Temp Pulse Resp BP Pulse Ox 97.6 F 108 H 18 137/54 99 11/20/16 13:20 11/20/16 13:20 11/20/16 13:20 11/20/16 13:20 11/20/16 07:25 Plan Follow up with: PRIMARY CARE, [Primary Care Provider] - 3-5 Days Prescriptions: Vancomycin HCl in Dextrose 5 % [Vancomycin 750 mg/250 ml-D5w] 750 mg IV 3XW #18 plast..bag
--- NOTE | 2016-11-20 14:09 | Progress Note ---
Assessment and Plan - Patient Problems (1) MRSA bacteremia Current Visit: Yes Status: Acute Plan to address problem: ID consulted, continue abx, awaiting final culture results. (2) Acute cholecystitis Current Visit: Yes Status: Resolved Plan to address problem: IV abx, Surgery consulted, NPO, supportive care, S/P Lap ko, (3) End-stage renal disease (ESRD) Current Visit: Yes Status: Chronic Plan to address problem: Nephrology consulted, dialysis as per renal team. (4) Acute on chronic renal failure Current Visit: No Status: Acute Plan to address problem: Nephrology consulted, supportive care, monitor uop q shift. 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 (8) Osteomyelitis Current Visit: Yes Status: Acute Qualifiers: Osteomyelitis location: O Laterality: L Chronicity: C Plan to address problem: D/C with IV abx as per ID recommendations, supportive care. (9) DVT prophylaxis Current Visit: No Status: Acute History Interval history: Pt lying in bed, No reported nursing events. Pt lethargic, fragile, No reported nursing events. Pt more alert today. Pt medically optimized. Case management consulted. Pt medically optimized. D/C to SNF/Hospice. Hospitalist Physical - Constitutional Vitals: Temp Pulse Resp BP Pulse Ox 97.6 F 108 H 18 137/54 99 11/20/16 13:20 11/20/16 13:20 11/20/16 13:20 11/20/16 13:20 11/20/16 07:25 General appearance: Present: no acute distress, cachectic - EENT Eyes: Present: PERRL ENT: hearing intact - Neck Neck: Present: supple - Respiratory Respiratory: bilateral: diminished - Cardiovascular Rhythm: regular Heart Sounds: Present: S1 & S2 - Extremities Extremities: no ischemia Extremity abnormal: edema Peripheral Pulses: within normal limits - Abdominal General gastrointestinal: soft, non-tender, non-distended - Integumentary Integumentary: Present: clear, dry, decreased turgor - Psychiatric Psychiatric: appropriate mood/affect, cooperative - Neurologic Neurologic: CNII-XII intact, no gait normal Results - Labs CBC & Chem 7: 11/17/16 10:35 11/17/16 10:35 Labs: Laboratory Last Values WBC 10.3 K/mm3 (4.5-11.0) 11/17/16 10:35 RBC 3.03 M/mm3 (3.65-5.03) L 11/17/16 10:35 Hgb 8.2 gm/dl (10.1-14.3) L 11/17/16 10:35 Hct 26.0 % (30.3-42.9) L 11/17/16 10:35 MCV 86 fl (79-97) 11/17/16 10:35 MCH 27 pg (28-32) L 11/17/16 10:35 MCHC 32 % (30-34) 11/17/16 10:35 RDW 18.8 % (13.2-15.2) H 11/17/16 10:35 Plt Count 343 K/mm3 (140-440) 11/17/16 10:35 Lymph % (Auto) 6.4 % (13.4-35.0) L 11/14/16 05:00 Motley % (Auto) 7.3 % (0.0-7.3) 11/14/16 05:00 Eos % (Auto) 1.2 % (0.0-4.3) 11/14/16 05:00 Baso % (Auto) 0.9 % (0.0-1.8) 11/14/16 05:00 Lymph # 0.8 K/mm3 (1.2-5.4) L 11/14/16 05:00 Motley # 0.9 K/mm3 (0.0-0.8) H 11/14/16 05:00 Eos # 0.1 K/mm3 (0.0-0.4) 11/14/16 05:00 Baso # 0.1 K/mm3 (0.0-0.1) 11/14/16 05:00 Add Manual Diff Complete 11/10/16 04:38 Total Counted 100 02/10/17 04:38 Seg Neutrophils % 84.2 % (40.0-70.0) H 11/14/16 05:00 Seg Neuts % (Manual) 68.0 % (40.0-70.0) 11/10/16 04:38 Band Neutrophils % 6.0 % 11/10/16 04:38 Lymphocytes % (Manual) 12.0 % (13.4-35.0) L 11/10/16 04:38 Reactive Lymphs % (Man) 0 % 11/10/16 04:38 Monocytes % (Manual) 13.0 % (0.0-7.3) H 11/10/16 04:38 Eosinophils % (Manual) 1.0 % (0.0-4.3) 11/10/16 04:38 Basophils % (Manual) 0 % (0.0-1.8) 11/08/16 04:46 Metamyelocytes % 0 % 11/10/16 04:38 Myelocytes % 0 % 11/10/16 04:38 Promyelocytes % 0 % 11/10/16 04:38 Blast Cells % 0 % 11/10/16 04:38 Nucleated RBC % Not Reportable 11/10/16 04:38 Seg Neutrophils # 10.9 K/mm3 (1.8-7.7) H 11/14/16 05:00 Seg Neutrophils # Man 10.2 K/mm3 (1.8-7.7) H 11/10/16 04:38 Band Neutrophils # 0.9 K/mm3 11/10/16 04:38 Lymphocytes # (Manual) 1.8 K/mm3 (1.2-5.4) 11/10/16 04:38 Abs React Lymphs (Man) 0.0 K/mm3 11/10/16 04:38 Monocytes # (Manual) 2.0 K/mm3 (0.0-0.8) H 11/10/16 04:38 Eosinophils # (Manual) 0.2 K/mm3 (0.0-0.4) 11/10/16 04:38 Basophils # (Manual) 0.0 K/mm3 (0.0-0.1) 11/10/16 04:38 Metamyelocytes # 0.0 K/mm3 11/10/16 04:38 Myelocytes # 0.0 K/mm3 11/10/16 04:38 Promyelocytes # 0.0 K/mm3 11/10/16 04:38 Blast Cells # 0.0 K/mm3 11/10/16 04:38 WBC Morphology Not Reportable 11/10/16 04:38 Hypersegmented Neuts Not Reportable 11/10/16 04:38 Hyposegmented Neuts Not Reportable 11/10/16 04:38 Hypogranular Neuts Not Reportable 11/10/16 04:38 Smudge Cells Not Reportable 11/10/16 04:38 Toxic Granulation Not Reportable 11/10/16 04:38 Toxic Vacuolation Not Reportable 11/10/16 04:38 Dohle Bodies Not Reportable 11/10/16 04:38 Pelger-Huet Anomaly Not Reportable 11/10/16 04:38 Aida Rods Not Reportable 11/10/16 04:38 Platelet Estimate Consistent w auto 11/10/16 04:38 Clumped Platelets Not Reportable 11/10/16 04:38 Plt Clumps, EDTA Not Reportable 11/10/16 04:38 Large Platelets Not Reportable 11/10/16 04:38 Giant Platelets Not Reportable 11/10/16 04:38 Platelet Satelliting Not Reportable 11/10/16 04:38 Plt Morphology Comment Not Reportable 11/10/16 04:38 RBC Morphology Not Reportable 11/10/16 04:38 Dimorphic RBCs Not Reportable 11/10/16 04:38 Polychromasia Not Reportable 11/10/16 04:38 Hypochromasia 1+ 11/10/16 04:38 Poikilocytosis Not Reportable 11/10/16 04:38 Anisocytosis 1+ 11/10/16 04:38 Microcytosis Not Reportable 11/10/16 04:38 Macrocytosis Not Reportable 11/10/16 04:38 Spherocytes Not Reportable 11/10/16 04:38 Pappenheimer Bodies Not Reportable 11/10/16 04:38 Sickle Cells Not Reportable 11/10/16 04:38 Target Cells Not Reportable 11/10/16 04:38 Tear Drop Cells Not Reportable 11/10/16 04:38 Ovalocytes Not Reportable 11/10/16 04:38 Helmet Cells Not Reportable 11/10/16 04:38 [place] Bodies Not Reportable 11/10/16 04:38 Axson Rings Not Reportable 11/10/16 04:38 Bernard Cells Not Reportable 11/10/16 04:38 Bite Cells Not Reportable 11/10/16 04:38 Crenated Cell Not Reportable 11/10/16 04:38 Elliptocytes Not Reportable 11/10/16 04:38 Acanthocytes (Spur) Not Reportable 11/10/16 04:38 Rouleaux Not Reportable 11/10/16 04:38 Hemoglobin C Crystals Not Reportable 11/10/16 04:38 Schistocytes Not Reportable 11/10/16 04:38 Malaria parasites Not Reportable 11/10/16 04:38 Jalil Bodies Not Reportable 11/10/16 04:38 Hem Pathologist Commnt No 11/10/16 04:38 POC ABG pH 7.488 (7.35-7.45) H 11/01/16 05:56 POC ABG pCO2 31.0 (35-45) L 11/01/16 05:56 POC ABG pO2 106 (80-105) H 11/01/16 05:56 POC ABG HCO3 23.5 11/01/16 05:56 POC ABG Total CO2 24 11/01/16 05:56 POC ABG O2 Sat 99 11/01/16 05:56 POC ABG Base Excess 0 11/01/16 05:56 FiO2 40 % 11/01/16 05:56 Sodium 132 mmol/L (137-145) L 11/17/16 10:35 Potassium 3.6 mmol/L (3.6-5.0) 11/17/16 10:35 Chloride 91.5 mmol/L (98-107) L 11/17/16 10:35 Carbon Dioxide 26 mmol/L (22-30) 11/17/16 10:35 Anion Gap 18 mmol/L 11/17/16 10:35 BUN 9 mg/dL (7-17) 11/17/16 10:35 Creatinine 2.0 mg/dL (0.7-1.2) H 11/17/16 10:35 Estimated GFR 29 ml/min 11/17/16 10:35 BUN/Creatinine Ratio 4.50 % 11/17/16 10:35 Glucose 172 mg/dL (65-100) H 11/17/16 10:35 POC Glucose 153 (70-105) H 11/19/16 21:15 Calcium 7.8 mg/dL (8.4-10.2) L 11/17/16 10:35 Phosphorus 3.1 mg/dL (2.5-4.5) 11/02/16 04:36 Magnesium 1.7 mg/dL (1.7-2.3) 11/02/16 04:36 Total Bilirubin 0.6 mg/dL (0.1-1.2) 11/01/16 22:37 AST 44 units/L (5-40) H 11/01/16 22:37 ALT 18 units/L (7-56) 11/01/16 22:37 Alkaline Phosphatase 109 units/L (35-129) 11/01/16 22:37 Total Protein 7.2 g/dL (6.3-8.2) 11/01/16 22:37 Albumin 2.4 g/dL (3.9-5) L 11/01/16 22:37 Albumin/Globulin Ratio 0.5 % 11/01/16 22:37 Urine Color Yellow (Yellow) 10/30/16 00:30 Urine Turbidity Slightly-cloudy (Clear) 10/30/16 00:30 Urine pH 5.0 (5.0-7.0) 10/30/16 00:30 Ur Specific [place] 1.015 (1.003-1.030) 10/30/16 00:30 Urine Protein 100 mg/dl mg/dL (Negative) 10/30/16 00:30 Urine Glucose (UA) Neg mg/dL (Negative) 10/30/16 00:30 Urine Ketones Tr mg/dL (Negative) 10/30/16 00:30 Urine Blood Neg (Negative) 10/30/16 00:30 Urine Nitrite Neg (Negative) 10/30/16 00:30 Urine Bilirubin Neg (Negative) 10/30/16 00:30 Urine Urobilinogen < 2.0 mg/dL (<2.0) 10/30/16 00:30 Ur Leukocyte Esterase Neg (Negative) 10/30/16 00:30 Urine WBC (Auto) 10.0 /HPF (0.0-6.0) H 10/30/16 00:30 Urine RBC (Auto) 2.0 /HPF (0.0-6.0) 10/30/16 00:30 U Epithel Cells (Auto) 6.0 /HPF (0-13.0) 10/30/16 00:30 Amorphous Crystals 1+ 10/30/16 00:30 Hyaline Casts 16 /LPF 10/30/16 00:30 Granular Casts 4 /LPF 10/30/16 00:30 Urine Mucus Few /HPF 10/30/16 00:30 Random Vancomycin 22.5 ug/mL (0-40.0) 11/17/16 05:00 Blood Type B POSITIVE 11/12/16 11:30 Antibody Screen Negative 11/12/16 11:30 Crossmatch See Detail 11/12/16 11:30
--- NOTE | 2016-11-20 14:10 | Discharge Summary ---
Providers - Providers Date of Admission: 10/30/16 02:48 Attending physician: ADRIANA GILL 10/30/16 09:06 Consult to Physician [CONS] Routine Consulting Provider: EVA SHAY Reason For Exam: ESRD on hemodialysis, for dialysis Place consult to:: Nephrology Notified:: office Phone number called:: Was contact made?: Yes If yes, spoke with:: nikhil Time called:: 09:49 10/31/16 18:48 Consult to Dietitian/Nutrition [CONS] Routine Physician Instructions: Reason For Exam: Reason for Consult: Pt needs oral supplement 11/03/16 07:48 Physical Therapy Evaluation and Treat [CONS] Routine Comment: Reason For Exam: eval for skilled needs vs home health 11/05/16 12:57 Consult to Physician [CONS] Routine Consulting Provider: BLANE LUCAS Reason For Exam: surgery Place consult to:: axel Notified:: yes Was contact made?: Yes If yes, spoke with:: Dr Lucas Time called:: 12:58 11/07/16 13:08 Consult to Physician [CONS] Routine Consulting Provider: ESTEFANÍA FOURNIER Reason For Exam: mrsa bacteremia Place consult to:: Dr. 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 Hospitalization Condition: Stable Disposition: STILL A PATIENT - Discharge Diagnoses (1) MRSA bacteremia Status: Acute (2) Acute cholecystitis Status: Resolved (3) End-stage renal disease (ESRD) Status: Chronic (4) Acute on chronic renal failure Status: Acute (5) Chronic systolic heart failure Status: Chronic (6) Diabetes mellitus type II, controlled Status: Chronic Qualifiers: Diabetes mellitus complication status: with kidney complications Diabetes mellitus complication detail: D Diabetic retinopathy severity: D Diabetes mellitus macular edema: D 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
--- NOTE | 2016-11-20 17:09 | Progress Note ---
Assessment and Plan - Patient Problems (1) MRSA bacteremia Current Visit: Yes Status: Acute Plan to address problem: ID consulted, continue abx, awaiting final culture results. (2) Acute cholecystitis Current Visit: Yes Status: Resolved Plan to address problem: IV abx, Surgery consulted, NPO, supportive care, S/P Lap ko, (3) End-stage renal disease (ESRD) Current Visit: Yes Status: Chronic Plan to address problem: Nephrology consulted, dialysis as per renal team. (4) Acute on chronic renal failure Current Visit: No Status: Acute Plan to address problem: Nephrology consulted, supportive care, monitor uop q shift. 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 (8) Osteomyelitis Current Visit: Yes Status: Acute Qualifiers: Osteomyelitis location: O Laterality: L Chronicity: C Plan to address problem: D/C with IV abx as per ID recommendations, supportive care. (9) DVT prophylaxis Current Visit: No Status: Acute History Interval history: Pt lying in bed, No reported nursing events. No reported nursing events. Pt more alert today. Pt medically optimized. Case management consulted. Pt medically optimized. D/C to SNF/Hospice. Hospitalist Physical - Constitutional Vitals: Temp Pulse Resp BP Pulse Ox 97.6 F 108 H 18 137/54 99 11/20/16 13:20 11/20/16 13:20 11/20/16 13:20 11/20/16 13:20 11/20/16 07:25 General appearance: Present: no acute distress, cachectic - EENT Eyes: Present: PERRL ENT: hearing intact - Neck Neck: Present: supple - Respiratory Respiratory: bilateral: diminished - Cardiovascular Rhythm: regular Heart Sounds: Present: S1 & S2 - Extremities Extremities: no ischemia Peripheral Pulses: within normal limits - Abdominal General gastrointestinal: soft, non-tender, non-distended - Integumentary Integumentary: Present: clear, dry - Psychiatric Psychiatric: appropriate mood/affect, cooperative - Neurologic Neurologic: CNII-XII intact, no gait normal Results - Labs CBC & Chem 7: 11/17/16 10:35 11/17/16 10:35 Labs: Laboratory Last Values WBC 10.3 K/mm3 (4.5-11.0) 11/17/16 10:35 RBC 3.03 M/mm3 (3.65-5.03) L 11/17/16 10:35 Hgb 8.2 gm/dl (10.1-14.3) L 11/17/16 10:35 Hct 26.0 % (30.3-42.9) L 11/17/16 10:35 MCV 86 fl (79-97) 11/17/16 10:35 MCH 27 pg (28-32) L 11/17/16 10:35 MCHC 32 % (30-34) 11/17/16 10:35 RDW 18.8 % (13.2-15.2) H 11/17/16 10:35 Plt Count 343 K/mm3 (140-440) 11/17/16 10:35 Lymph % (Auto) 6.4 % (13.4-35.0) L 11/14/16 05:00 [place] % (Auto) 7.3 % (0.0-7.3) 11/14/16 05:00 Eos % (Auto) 1.2 % (0.0-4.3) 11/14/16 05:00 Baso % (Auto) 0.9 % (0.0-1.8) 11/14/16 05:00 Lymph # 0.8 K/mm3 (1.2-5.4) L 11/14/16 05:00 [place] # 0.9 K/mm3 (0.0-0.8) H 11/14/16 05:00 Eos # 0.1 K/mm3 (0.0-0.4) 11/14/16 05:00 Baso # 0.1 K/mm3 (0.0-0.1) 11/14/16 05:00 Add Manual Diff Complete 11/10/16 04:38 Total Counted 100 11/10/16 04:38 Seg Neutrophils % 84.2 % (40.0-70.0) H 11/14/16 05:00 Seg Neuts % (Manual) 68.0 % (40.0-70.0) 11/10/16 04:38 Band Neutrophils % 6.0 % 11/10/16 04:38 Lymphocytes % (Manual) 12.0 % (13.4-35.0) L 11/10/16 04:38 Reactive Lymphs % (Man) 0 % 11/10/16 04:38 Monocytes % (Manual) 13.0 % (0.0-7.3) H 11/10/16 04:38 Eosinophils % (Manual) 1.0 % (0.0-4.3) 11/10/16 04:38 Basophils % (Manual) 0 % (0.0-1.8) 11/08/16 04:46 Metamyelocytes % 0 % 11/10/16 04:38 Myelocytes % 0 % 11/10/16 04:38 Promyelocytes % 0 % 11/10/16 04:38 Blast Cells % 0 % 11/10/16 04:38 Nucleated RBC % Not Reportable 11/10/16 04:38 Seg Neutrophils # 10.9 K/mm3 (1.8-7.7) H 11/14/16 05:00 Seg Neutrophils # Man 10.2 K/mm3 (1.8-7.7) H 11/10/16 04:38 Band Neutrophils # 0.9 K/mm3 11/10/16 04:38 Lymphocytes # (Manual) 1.8 K/mm3 (1.2-5.4) 11/10/16 04:38 Abs React Lymphs (Man) 0.0 K/mm3 11/10/16 04:38 Monocytes # (Manual) 2.0 K/mm3 (0.0-0.8) H 11/10/16 04:38 Eosinophils # (Manual) 0.2 K/mm3 (0.0-0.4) 11/10/16 04:38 Basophils # (Manual) 0.0 K/mm3 (0.0-0.1) 11/10/16 04:38 Metamyelocytes # 0.0 K/mm3 11/10/16 04:38 Myelocytes # 0.0 K/mm3 11/10/16 04:38 Promyelocytes # 0.0 K/mm3 11/10/16 04:38 Blast Cells # 0.0 K/mm3 11/10/16 04:38 WBC Morphology Not Reportable 11/10/16 04:38 Hypersegmented Neuts Not Reportable 11/10/16 04:38 Hyposegmented Neuts Not Reportable 11/10/16 04:38 Hypogranular Neuts Not Reportable 11/10/16 04:38 Smudge Cells Not Reportable 11/10/16 04:38 Toxic Granulation Not Reportable 11/10/16 04:38 Toxic Vacuolation Not Reportable 11/10/16 04:38 Dohle Bodies Not Reportable 11/10/16 04:38 Pelger-Huet Anomaly Not Reportable 11/10/16 04:38 Aida Rods Not Reportable 11/10/16 04:38 Platelet Estimate Consistent w auto 11/10/16 04:38 Clumped Platelets Not Reportable 11/10/16 04:38 Plt Clumps, EDTA Not Reportable 11/10/16 04:38 Large Platelets Not Reportable 11/10/16 04:38 Giant Platelets Not Reportable 11/10/16 04:38 Platelet Satelliting Not Reportable 11/10/16 04:38 Plt Morphology Comment Not Reportable 11/10/16 04:38 RBC Morphology Not Reportable 11/10/16 04:38 Dimorphic RBCs Not Reportable 11/10/16 04:38 Polychromasia Not Reportable 11/10/16 04:38 Hypochromasia 1+ 11/10/16 04:38 Poikilocytosis Not Reportable 11/10/16 04:38 Anisocytosis 1+ 11/10/16 04:38 Microcytosis Not Reportable 11/10/16 04:38 Macrocytosis Not Reportable 11/10/16 04:38 Spherocytes Not Reportable 11/10/16 04:38 Pappenheimer Bodies Not Reportable 11/10/16 04:38 Sickle Cells Not Reportable 11/10/16 04:38 Target Cells Not Reportable 11/10/16 04:38 Tear Drop Cells Not Reportable 11/10/16 04:38 Ovalocytes Not Reportable 11/10/16 04:38 Helmet Cells Not Reportable 11/10/16 04:38 [place] Bodies Not Reportable 11/10/16 04:38 [place] Rings Not Reportable 11/10/16 04:38 [place] Cells Not Reportable 11/10/16 04:38 Bite Cells Not Reportable 11/10/16 04:38 Crenated Cell Not Reportable 11/10/16 04:38 Elliptocytes Not Reportable 11/10/16 04:38 Acanthocytes (Spur) Not Reportable 11/10/16 04:38 Rouleaux Not Reportable 11/10/16 04:38 Hemoglobin C Crystals Not Reportable 11/10/16 04:38 Schistocytes Not Reportable 11/10/16 04:38 Malaria parasites Not Reportable 11/10/16 04:38 Jalil Bodies Not Reportable 11/10/16 04:38 Hem Pathologist Commnt No 11/10/16 04:38 POC ABG pH 7.488 (7.35-7.45) H 11/01/16 05:56 POC ABG pCO2 31.0 (35-45) L 11/01/16 05:56 POC ABG pO2 106 (80-105) H 11/01/16 05:56 POC ABG HCO3 23.5 11/01/16 05:56 POC ABG Total CO2 24 11/01/16 05:56 POC ABG O2 Sat 99 11/01/16 05:56 POC ABG Base Excess 0 11/01/16 05:56 FiO2 40 % 11/01/16 05:56 Sodium 132 mmol/L (137-145) L 11/17/16 10:35 Potassium 3.6 mmol/L (3.6-5.0) 11/17/16 10:35 Chloride 91.5 mmol/L (98-107) L 11/17/16 10:35 Carbon Dioxide 26 mmol/L (22-30) 11/17/16 10:35 Anion Gap 18 mmol/L 11/17/16 10:35 BUN 9 mg/dL (7-17) 11/17/16 10:35 Creatinine 2.0 mg/dL (0.7-1.2) H 11/17/16 10:35 Estimated GFR 29 ml/min 11/17/16 10:35 BUN/Creatinine Ratio 4.50 % 11/17/16 10:35 Glucose 172 mg/dL (65-100) H 11/17/16 10:35 POC Glucose 153 (70-105) H 11/19/16 21:15 Calcium 7.8 mg/dL (8.4-10.2) L 11/17/16 10:35 Phosphorus 3.1 mg/dL (2.5-4.5) 11/02/16 04:36 Magnesium 1.7 mg/dL (1.7-2.3) 11/02/16 04:36 Total Bilirubin 0.6 mg/dL (0.1-1.2) 11/01/16 22:37 AST 44 units/L (5-40) H 11/01/16 22:37 ALT 18 units/L (7-56) 11/01/16 22:37 Alkaline Phosphatase 109 units/L (35-129) 11/01/16 22:37 Total Protein 7.2 g/dL (6.3-8.2) 11/01/16 22:37 Albumin 2.4 g/dL (3.9-5) L 11/01/16 22:37 Albumin/Globulin Ratio 0.5 % 11/01/16 22:37 Urine Color Yellow (Yellow) 10/30/16 00:30 Urine Turbidity Slightly-cloudy (Clear) 10/30/16 00:30 Urine pH 5.0 (5.0-7.0) 10/30/16 00:30 Ur Specific [place] 1.015 (1.003-1.030) 10/30/16 00:30 Urine Protein 100 mg/dl mg/dL (Negative) 10/30/16 00:30 Urine Glucose (UA) Neg mg/dL (Negative) 10/30/16 00:30 Urine Ketones Tr mg/dL (Negative) 10/30/16 00:30 Urine Blood Neg (Negative) 10/30/16 00:30 Urine Nitrite Neg (Negative) 10/30/16 00:30 Urine Bilirubin Neg (Negative) 10/30/16 00:30 Urine Urobilinogen < 2.0 mg/dL (<2.0) 10/30/16 00:30 Ur Leukocyte Esterase Neg (Negative) 10/30/16 00:30 Urine WBC (Auto) 10.0 /HPF (0.0-6.0) H 10/30/16 00:30 Urine RBC (Auto) 2.0 /HPF (0.0-6.0) 01/30/17 00:30 U Epithel Cells (Auto) 6.0 /HPF (0-13.0) 10/30/16 00:30 Amorphous Crystals 1+ 10/30/16 00:30 Hyaline Casts 16 /LPF 10/30/16 00:30 Granular Casts 4 /LPF 10/30/16 00:30 Urine Mucus Few /HPF 10/30/16 00:30 Random Vancomycin 22.5 ug/mL (0-40.0) 11/17/16 05:00 Blood Type B POSITIVE 11/12/16 11:30 Antibody Screen Negative 11/12/16 11:30 Crossmatch See Detail 11/12/16 11:30
[2016-11-20] MEDS: VANCOMYCIN VIAL 750 MG in NACL 0.9% 250ML 250 ML IV SCH (18:57)
[2016-11-20] MEDS: MORPHINE IV PRN (22:08)
[2016-11-21] MEDS: NOVOLOG SUB-Q SCH ×4 (08:30→21:19)
[2016-11-21] MEDS: LOVENOX SUB-Q SCH (10:25)
[2016-11-21] MEDS: PROTONIX PO SCH (10:25)
[2016-11-21] MEDS: COREG PO SCH ×2 (10:25→21:06)
--- NOTE | 2016-11-21 10:27 | Progress Note ---
Assessment and Plan Current antibiotics: Vancomycin IV (Pulse doses) 10/30, 11/07 --> Previous antibiotics: Zosyn 4.5 g IV q8h 10/30-10/31 Ceftriaxone 1 g IV q24h 10/30-10/31 Metronidazole 500 mg IV q8h 10/31-11/07 Levaquin 500 mg IV q24h 10/30-11/07 ASSESSMENT: Barbra Babin is an 85 y/o female who lives independently with HTN, type 2 DM, ESRD on maintenance HD, COPD, systolic heart failure (EF 45-50 percent), previous bowel perforation with colostomy (~ 6 years ago) who had been hospitalized at 10/21-10/24 with hypoglycemia. She had been hospitalized approximately 4 weeks earlier with worsening renal failure requiring initiation of HD (M-W-Fr) via a right chest wall PC ( inserted 10/04/16). She re- presents on 10/30 with abdominal and back pain and is found to have with non- visualization of the gallbladder on HIDA scan. 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 Blood cultures are growing MRSA. Problem list: 1. MRSA bacteremia - 10/30:4/4 bottles + -11/06: 3/4 bottles + -Likely right chest wall permacath source. removed 11/08 -Repeat blood cultures on 11/08 No growth -11/07 transthoracic echocardiogram showed vegetation versus fibrin sheath on the catheter -11/17 MRI suggestive of discitis and vertebral osteomyeltis L3-L4 2. Biliary sepsis with acute cholecystitis - s/p open cholecystectomy - 10/31 3. Leukocytosis -2nd to above -Improving 4. ESRD -Maintenance HD -New Vas-Cath placed in right common femoral vein 11/10 5. Back pain -11/17 MRI suggestive of discitis and vertebral osteomyelitis L3-L4 6. Anemia 7. Type 2 diabetes mellitus PLAN: 1. Continue vancomycin 2. Will need prolonged IV antibiotics in light of prolonged MRSA bacteremia and vertebral osteomyelitis 3. Awaits discharge planning 4. Continued supportive measures Subjective Date of service: 11/21/16 Principal diagnosis: Permacath related bacteremia; Discitis/vertebral osteomyelitis Interval history: Complains of back pain. Awaits rehabilitation placement. Objective - Exam Narrative Exam: GENERAL: Well-developed, thin female who is alert and in no acute distress. Appears somewhat chronically ill, lying right lateral recumbent HEAD: Normocephalic. No lesions seen. Mild by temporalis muscle wasting. EYES: Pupils are equal reactive to light and accommodation. There is no scleral icterus. Optic fundi are not examined. Bilateral arcus senilis. EARS: Normal external ears without external drainage THROAT: Oropharynx is normal with no evidence of oral candidiasis or pharyngitis. Poor dentition. NECK: Supple. No enlargement of the thyroid gland. No significant cervical lymphadenopathy. No jugular venous distention at 30. LUNGS: Clear with no adventitious sounds. CHEST: PermCath site clean. HEART: Regular rate. S1 and S2 are normal. There are no murmurs, gallops, clicks or rubs heard. ABDOMEN: Soft with mild right upper quadrant tenderness without guarding or rebound. Liver and spleen are not palpably enlarged or tender. No palpable masses. Bowel sounds are normoactive. Colostomy in place with healthy mucosa and functioning normally. Right upper quadrant abdominal wound healing with no signs of infection. EXTREMITIES: No rash, peripheral lymphadenopathy, clubbing or edema. Mild tenderness over upper lumbar spine with no other objective abnormalities. NEUROLOGIC: No focal findings. - Constitutional Vitals: Vital Signs Temp Pulse Resp BP Pulse Ox 98.9 F 96 H 18 133/83 100 11/21/16 07:30 11/21/16 07:30 11/21/16 07:30 11/21/16 07:30 11/21/16 07:30 Temperature -Last 24 Hours Temperature 98.9 F Temperature 98.3 F Temperature 98.5 F Temperature 98.8 F Temperature 102.1 F Temperature 97.6 F - Labs CBC & Chem 7: 11/17/16 10:35 11/17/16 10:35 Labs: Abnormal lab results 11/20/16 11/20/16 Range/Units 07:14 17:02 POC Glucose 164 H 199 H (70-105)
--- NOTE | 2016-11-21 12:01 | Progress Note ---
Assessment and Plan (1) Line sepsis associated with dialysis catheter/MRSA bactremia Current Visit: Yes Status: Acute Plan to address problem: Continue antibiotics (2) Discitis of lumbar region Current Visit: Yes Status: Acute Plan to address problem: Discitis and osteomyelitis of L3-L4. Continue antibiotics. Neurosurgery consult pending (3) End-stage renal disease (ESRD) Current Visit: Yes Status: Chronic Plan to address problem: HD on MWF schedule (4) Hypertensive chronic kidney disease with stage 5 chronic kidney disease or end stage renal disease Current Visit: Yes Status: Chronic Plan to address problem: BP stable. Follow-up blood pressure on current medications (5) Anemia in chronic kidney disease Current Visit: No Status: Chronic Plan to address problem: Give erythropoietin on dialysis. 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 No JVD or thyromegaly or nodule,neck supple, no carotid bruit ,mucous membranes moist, no exudate or erythema, permcath in place. No tenderness/erythema at exit site Heart: S1, S2, regular rate and rhythm Lungs: Clear to auscultation bilaterally, breathing comfortable Abdomen: Positive bowel sounds, tender on the right side, nondistended, no organomegaly Extremity: No edema, cyanosis, clubbing Skin: No rash, nodules, warm, dry Neuro: Oriented 3, cranial nerves II-12 intact, speech is fluent, motor and sensory intact - Vital Signs Vital signs: Vital Signs - 12hr 11/21/16 11/21/16 05:56 07:30 Temperature 98.3 F 98.9 F Pulse Rate [ 96 H 96 H Right Radial] Respiratory 18 18 Rate Blood Pressure 135/65 133/83 [Right Radial Artery] O2 Sat by Pulse 97 100 Oximetry - Lab 11/17/16 10:35 11/17/16 10:35 Most recent lab results Calcium 7.8 mg/dL (8.4-10.2) L 11/17/16 10:35 Phosphorus 3.1 mg/dL (2.5-4.5) 11/02/16 04:36 Magnesium 1.7 mg/dL (1.7-2.3) 11/02/16 04:36
--- NOTE | 2016-11-21 16:24 | Progress Note ---
Assessment and Plan Assessment and plan: MRSA bacteremia - She is on IV vancomycin - blood cultures from 11/08/16 were negative - Vasc cath replaced - Echocardiography was done showed vegetation VS fibrin - ID Consult appreciated - Contact precaution Osteomyelitis / Discitis of L2/3 - Patient will continue with IV antibiotics - Neurosurgeon consult was placed but the doctor is out of town Cholecystitis s/p cholecystectomy -Abdominal pain is getting better - CT was negative End stage renal disease on hemodialysis - Vasc cath plced and continue hemodialysis Hypertension - Controlled DM2 - Continue current management DVT prophylaxis - on lovenox Disposition - To SNF for acute rehab, her insurance company wanted to do peer to peer review and have my number History Interval history: Patient was seen and evaluated this morning. She denied fevers, chills. complains generalized weakness. Hospitalist Physical - Physical exam Narrative exam: Not in cardiopulmonary distress. The patient appeared well nourished and normally developed. Vital signs as documented. Head exam is unremarkable. No scleral icterus . Neck is without jugular venous distension, thyromegaly, or carotid bruits. Lungs are clear to auscultation. Cardiac exam reveals regular rate and Rhythm. First and second heart sounds normal. No murmurs, rubs or gallops. Abdominal has colostomy bag on the left lower abdomen. 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 generalized weakness. - Constitutional Vitals: Temp Pulse Resp BP Pulse Ox 98.7 F 108 H 20 126/65 100 11/21/16 11:40 11/21/16 11:40 11/21/16 11:40 11/21/16 11:40 11/21/16 11:40 General appearance: Present: no acute distress, cachectic Results - Labs CBC & Chem 7: 11/17/16 10:35 11/17/16 10:35 Labs: Laboratory Last Values WBC 10.3 K/mm3 (4.5-11.0) 11/17/16 10:35 RBC 3.03 M/mm3 (3.65-5.03) L 11/17/16 10:35 Hgb 8.2 gm/dl (10.1-14.3) L 11/17/16 10:35 Hct 26.0 % (30.3-42.9) L 11/17/16 10:35 MCV 86 fl (79-97) 11/17/16 10:35 MCH 27 pg (28-32) L 11/17/16 10:35 MCHC 32 % (30-34) 11/17/16 10:35 RDW 18.8 % (13.2-15.2) H 11/17/16 10:35 Plt Count 343 K/mm3 (140-440) 11/17/16 10:35 Lymph % (Auto) 6.4 % (13.4-35.0) L 11/14/16 05:00 [place] % (Auto) 7.3 % (0.0-7.3) 11/14/16 05:00 Eos % (Auto) 1.2 % (0.0-4.3) 11/14/16 05:00 Baso % (Auto) 0.9 % (0.0-1.8) 11/14/16 05:00 Lymph # 0.8 K/mm3 (1.2-5.4) L 11/14/16 05:00 [place] # 0.9 K/mm3 (0.0-0.8) H 11/14/16 05:00 Eos # 0.1 K/mm3 (0.0-0.4) 11/14/16 05:00 Baso # 0.1 K/mm3 (0.0-0.1) 11/14/16 05:00 Add Manual Diff Complete 11/10/16 04:38 Total Counted 100 11/10/16 04:38 Seg Neutrophils % 84.2 % (40.0-70.0) H 11/14/16 05:00 Seg Neuts % (Manual) 68.0 % (40.0-70.0) 11/10/16 04:38 Band Neutrophils % 6.0 % 11/10/16 04:38 Lymphocytes % (Manual) 12.0 % (13.4-35.0) L 11/10/16 04:38 Reactive Lymphs % (Man) 0 % 11/10/16 04:38 Monocytes % (Manual) 13.0 % (0.0-7.3) H 11/10/16 04:38 Eosinophils % (Manual) 1.0 % (0.0-4.3) 11/10/16 04:38 Basophils % (Manual) 0 % (0.0-1.8) 11/08/16 04:46 Metamyelocytes % 0 % 11/10/16 04:38 Myelocytes % 0 % 11/10/16 04:38 Promyelocytes % 0 % 11/10/16 04:38 Blast Cells % 0 % 11/10/16 04:38 Nucleated RBC % Not Reportable 11/10/16 04:38 Seg Neutrophils # 10.9 K/mm3 (1.8-7.7) H 11/14/16 05:00 Seg Neutrophils # Man 10.2 K/mm3 (1.8-7.7) H 11/10/16 04:38 Band Neutrophils # 0.9 K/mm3 11/10/16 04:38 Lymphocytes # (Manual) 1.8 K/mm3 (1.2-5.4) 11/10/16 04:38 Abs React Lymphs (Man) 0.0 K/mm3 11/10/16 04:38 Monocytes # (Manual) 2.0 K/mm3 (0.0-0.8) H 11/10/16 04:38 Eosinophils # (Manual) 0.2 K/mm3 (0.0-0.4) 11/10/16 04:38 Basophils # (Manual) 0.0 K/mm3 (0.0-0.1) 11/10/16 04:38 Metamyelocytes # 0.0 K/mm3 11/10/16 04:38 Myelocytes # 0.0 K/mm3 11/10/16 04:38 Promyelocytes # 0.0 K/mm3 11/10/16 04:38 Blast Cells # 0.0 K/mm3 11/10/16 04:38 WBC Morphology Not Reportable 11/10/16 04:38 Hypersegmented Neuts Not Reportable 11/10/16 04:38 Hyposegmented Neuts Not Reportable 11/10/16 04:38 Hypogranular Neuts Not Reportable 11/10/16 04:38 Smudge Cells Not Reportable 11/10/16 04:38 Toxic Granulation Not Reportable 11/10/16 04:38 Toxic Vacuolation Not Reportable 11/10/16 04:38 Dohle Bodies Not Reportable 11/10/16 04:38 Pelger-[place]uet Anomaly Not Reportable 11/10/16 04:38 Aida Rods Not Reportable 11/10/16 04:38 Platelet Estimate Consistent w auto 11/10/16 04:38 Clumped Platelets Not Reportable 11/10/16 04:38 Plt Clumps, EDTA Not Reportable 11/10/16 04:38 Large Platelets Not Reportable 11/10/16 04:38 Giant Platelets Not Reportable 11/10/16 04:38 Platelet Satelliting Not Reportable 11/10/16 04:38 Plt Morphology Comment Not Reportable 11/10/16 04:38 RBC Morphology Not Reportable 11/10/16 04:38 Dimorphic RBCs Not Reportable 11/10/16 04:38 Polychromasia Not Reportable 11/10/16 04:38 Hypochromasia 1+ 11/10/16 04:38 Poikilocytosis Not Reportable 11/10/16 04:38 Anisocytosis 1+ 11/10/16 04:38 Microcytosis Not Reportable 11/10/16 04:38 Macrocytosis Not Reportable 11/10/16 04:38 Spherocytes Not Reportable 11/10/16 04:38 Pappenheimer Bodies Not Reportable 11/10/16 04:38 Sickle Cells Not Reportable 11/10/16 04:38 Target Cells Not Reportable 11/10/16 04:38 Tear Drop Cells Not Reportable 11/10/16 04:38 Ovalocytes Not Reportable 11/10/16 04:38 Helmet Cells Not Reportable 11/10/16 04:38 [place] Bodies Not Reportable 11/10/16 04:38 [place] Rings Not Reportable 11/10/16 04:38 [place] Cells Not Reportable 11/10/16 04:38 Bite Cells Not Reportable 11/10/16 04:38 Crenated Cell Not Reportable 11/10/16 04:38 Elliptocytes Not Reportable 11/10/16 04:38 Acanthocytes (Spur) Not Reportable 11/10/16 04:38 Rouleaux Not Reportable 11/10/16 04:38 Hemoglobin C Crystals Not Reportable 11/10/16 04:38 Schistocytes Not Reportable 11/10/16 04:38 Malaria parasites Not Reportable 11/10/16 04:38 Jalil Bodies Not Reportable 11/10/16 04:38 Hem Pathologist Commnt No 11/10/16 04:38 POC ABG pH 7.488 (7.35-7.45) H 11/01/16 05:56 POC ABG pCO2 31.0 (35-45) L 11/01/16 05:56 POC ABG pO2 106 (80-105) H 11/01/16 05:56 POC ABG HCO3 23.5 11/01/16 05:56 POC ABG Total CO2 24 11/01/16 05:56 POC ABG O2 Sat 99 11/01/16 05:56 POC ABG Base Excess 0 11/01/16 05:56 FiO2 40 % 11/01/16 05:56 Sodium 132 mmol/L (137-145) L 11/17/16 10:35 Potassium 3.6 mmol/L (3.6-5.0) 11/17/16 10:35 Chloride 91.5 mmol/L (98-107) L 11/17/16 10:35 Carbon Dioxide 26 mmol/L (22-30) 11/17/16 10:35 Anion Gap 18 mmol/L 11/17/16 10:35 BUN 9 mg/dL (7-17) 11/17/16 10:35 Creatinine 2.0 mg/dL (0.7-1.2) H 11/17/16 10:35 Estimated GFR 29 ml/min 11/17/16 10:35 BUN/Creatinine Ratio 4.50 % 11/17/16 10:35 Glucose 172 mg/dL (65-100) H 11/17/16 10:35 POC Glucose 105 (70-105) 11/20/16 22:03 Calcium 7.8 mg/dL (8.4-10.2) L 11/17/16 10:35 Phosphorus 3.1 mg/dL (2.5-4.5) 11/02/16 04:36 Magnesium 1.7 mg/dL (1.7-2.3) 11/02/16 04:36 Total Bilirubin 0.6 mg/dL (0.1-1.2) 11/01/16 22:37 AST 44 units/L (5-40) H 11/01/16 22:37 ALT 18 units/L (7-56) 11/01/16 22:37 Alkaline Phosphatase 109 units/L (35-129) 11/01/16 22:37 Total Protein 7.2 g/dL (6.3-8.2) 11/01/16 22:37 Albumin 2.4 g/dL (3.9-5) L 11/01/16 22:37 Albumin/Globulin Ratio 0.5 % 11/01/16 22:37 Urine Color Yellow (Yellow) 10/30/16 00:30 Urine Turbidity Slightly-cloudy (Clear) 10/30/16 00:30 Urine pH 5.0 (5.0-7.0) 10/30/16 00:30 Ur Specific [place] 1.015 (1.003-1.030) 10/30/16 00:30 Urine Protein 100 mg/dl mg/dL (Negative) 10/30/16 00:30 Urine Glucose (UA) Neg mg/dL (Negative) 10/30/16 00:30 Urine Ketones Tr mg/dL (Negative) 10/30/16 00:30 Urine Blood Neg (Negative) 10/30/16 00:30 Urine Nitrite Neg (Negative) 10/30/16 00:30 Urine Bilirubin Neg (Negative) 10/30/16 00:30 Urine Urobilinogen < 2.0 mg/dL (<2.0) 10/30/16 00:30 Ur Leukocyte Esterase Neg (Negative) 10/30/16 00:30 Urine WBC (Auto) 10.0 /HPF (0.0-6.0) H 10/30/16 00:30 Urine RBC (Auto) 2.0 /HPF (0.0-6.0) 10/30/16 00:30 U Epithel Cells (Auto) 6.0 /HPF (0-13.0) 10/30/16 00:30 Amorphous Crystals 1+ 10/30/16 00:30 Hyaline Casts 16 /LPF 10/30/16 00:30 Granular Casts 4 /LPF 10/30/16 00:30 Urine Mucus Few /HPF 10/30/16 00:30 Random Vancomycin 22.5 ug/mL (0-40.0) 11/17/16 05:00 Blood Type B POSITIVE 11/12/16 11:30 Antibody Screen Negative 11/12/16 11:30 Crossmatch See Detail 11/12/16 11:30
[2016-11-21] MEDS: MORPHINE IV PRN (21:17)
[2016-11-22 05:47] LABS: Hematocrit 22.1 % (30.3-42.9); Hemoglobin 7.1 gm/dl (10.1-14.3); Mean Corpuscular HGB Conc 32 % (30-34); Mean Corpuscular Hemoglobin 27 pg (28-32); Mean Corpuscular Volume 85 fl (79-97); Platelet Count 216 K/mm3 (140-440); Red Blood Count 2.59 M/mm3 (3.65-5.03); Red Cell Distribution Width 17.9 % (13.2-15.2); White Blood Count 4.8 K/mm3 (4.5-11.0)
[2016-11-22 06:02] LABS: BUN/Creatinine Ratio 5.3; Calcium 8.1 mg/dL (8.4-10.2); Potassium 4.7 mmol/L (3.6-5.0)
[2016-11-22 06:54] LABS: Anisocytosis 1+; Blastocytes % (Manual) 0 %; Diff Status Complete; Platelet Estimate Consistent w Auto
[2016-11-22] MEDS: NOVOLOG SUB-Q SCH ×3 (09:22→21:32)
--- NOTE | 2016-11-22 10:02 | Progress Note ---
Assessment and Plan Current antibiotics: Vancomycin IV (Pulse doses) 10/30, 11/07 --> Previous antibiotics: Zosyn 4.5 g IV q8h 10/30-10/31 Ceftriaxone 1 g IV q24h 10/30-10/31 Metronidazole 500 mg IV q8h 10/31-11/07 Levaquin 500 mg IV q24h 10/30-11/07 ASSESSMENT: Barbra Babin is an 85 y/o female who lives independently with HTN, type 2 DM, ESRD on maintenance HD, COPD, systolic heart failure (EF 45-50 percent), previous bowel perforation with colostomy (~ 6 years ago) who had been hospitalized at 10/21-10/24 with hypoglycemia. She had been hospitalized approximately 4 weeks earlier with worsening renal failure requiring initiation of HD (M-W-Fr) via a right chest wall PC ( inserted 10/04/16). She re- presents on 10/30 with abdominal and back pain and is found to have with non- visualization of the gallbladder on HIDA scan. 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 Blood cultures are growing MRSA. Problem list: 1. MRSA bacteremia ( vancomycin KENY = 1.00) - 10/30:4/4 bottles + -11/06: 3/4 bottles + -Likely right chest wall permacath source. removed 11/08 -Repeat blood cultures on 11/08 No growth -11/07 transthoracic echocardiogram showed vegetation versus fibrin sheath on the catheter -11/17 MRI suggestive of discitis and vertebral osteomyeltis L3-L4 2. Biliary sepsis with acute cholecystitis - s/p open cholecystectomy - 10/31 3. Leukocytosis -2nd to above -Improving 4. ESRD -Maintenance HD -New Vas-Cath placed in right common femoral vein 11/10 5. Back pain -11/17 MRI suggestive of discitis and vertebral osteomyelitis L3-L4 6. Anemia 7. Type 2 diabetes mellitus PLAN: 1. Continue vancomycin to complete 6-8 week course. 2. Will need prolonged IV antibiotics in light of prolonged MRSA bacteremia and vertebral osteomyelitis 3. Patient currently with right femoral and left IJ Vas-Cath's. Favor removal of right groin line site if possible prior to discharge. 4. Patient though will need continued IV access in addition to dialysis catheter for prolonged antibiotics. 5. Consider PRBC transfusion prior to discharge with marked anemia. 6. Otherwise continue supportive therapy with glycemic control. Subjective Date of service: 11/22/16 Principal diagnosis: Permacath related bacteremia; Discitis/vertebral osteomyelitis Interval history: Complains of being cold. Otherwise no complaints. Remains with left chest wall and right inguinal tunneled catheters. Objective - Exam Narrative Exam: GENERAL: Well-developed, thin female who is alert and in no acute distress. Appears somewhat chronically ill. HEAD: Normocephalic. No lesions seen. Mild by temporalis muscle wasting. EYES: Pupils are equal reactive to light and accommodation. There is no scleral icterus. Optic fundi are not examined. Bilateral arcus senilis. EARS: Normal external ears without external drainage THROAT: Oropharynx is normal with no evidence of oral candidiasis or pharyngitis. Poor dentition. NECK: Supple. No enlargement of the thyroid gland. No significant cervical lymphadenopathy. No jugular venous distention at 30. LUNGS: Clear with no adventitious sounds. CHEST: PermCath site clean left chest wall. HEART: Regular rate. S1 and S2 are normal. There are no murmurs, gallops, clicks or rubs heard. ABDOMEN: Soft with mild right upper quadrant tenderness without guarding or rebound. Liver and spleen are not palpably enlarged or tender. No palpable masses. Bowel sounds are normoactive. Colostomy in place with healthy mucosa and functioning normally. Right upper quadrant abdominal wound healing with no signs of infection. EXTREMITIES: No rash, peripheral lymphadenopathy, clubbing or edema. Right inguinal line site clean. NEUROLOGIC: No focal findings. - Constitutional Vitals: Vital Signs Temp Pulse Resp BP Pulse Ox 97.8 F 84 18 162/76 100 11/22/16 09:16 11/22/16 09:16 11/22/16 09:16 11/22/16 09:16 11/22/16 09:16 Temperature -Last 24 Hours Temperature 97.8 F Temperature 98.5 F Temperature 98.1 F Temperature 98.3 F Temperature 98.6 F Temperature 98.7 F - Labs CBC & Chem 7: 11/22/16 04:37 11/22/16 04:37 Labs: Abnormal lab results 11/21/16 11/21/16 11/21/16 Range/Units 12:42 16:56 17:51 RBC (3.65-5.03) M/mm3 Hgb (10.1-14.3) gm/dl Hct (30.3-42.9) % MCH (28-32) pg RDW (13.2-15.2) % Monocytes % (Manual) (0.0-7.3) % Monocytes # (Manual) (0.0-0.8) K/mm3 Sodium (137-145) mmol/L Chloride (98-107) mmol/L BUN (7-17) mg/dL Creatinine (0.7-1.2) mg/dL POC Glucose 230 H 53 L 128 H (70-105) Calcium (8.4-10.2) mg/dL 11/21/16 11/22/16 11/22/16 Range/Units 21:18 04:37 04:37 RBC 2.59 L (3.65-5.03) M/mm3 Hgb 7.1 L (10.1-14.3) gm/dl Hct 22.1 L (30.3-42.9) % MCH 27 L (28-32) pg RDW 17.9 H (13.2-15.2) % Monocytes % (Manual) 18.0 H (0.0-7.3) % Monocytes # (Manual) 0.9 H (0.0-0.8) K/mm3 Sodium 133 L (137-145) mmol/L Chloride 94.0 L (98-107) mmol/L BUN 26 H (7-17) mg/dL Creatinine 4.9 H D (0.7-1.2) mg/dL POC Glucose 123 H (70-105) Calcium 8.1 L (8.4-10.2) mg/dL
--- NOTE | 2016-11-22 10:54 | Discharge Summary ---
Providers - Providers Date of Admission: 10/30/16 02:48 Date of discharge: 11/22/16 Attending physician: SEAN LOUIS MD 10/30/16 09:06 Consult to Physician [CONS] Routine Consulting Provider: EVA SHAY Reason For Exam: ESRD on hemodialysis, for dialysis Place consult to:: Nephrology Notified:: office Phone number called:: Was contact made?: Yes If yes, spoke with:: nikhil Time called:: 09:49 10/31/16 18:48 Consult to Dietitian/Nutrition [CONS] Routine Physician Instructions: Reason For Exam: Reason for Consult: Pt needs oral supplement 11/03/16 07:48 Physical Therapy Evaluation and Treat [CONS] Routine Comment: Reason For Exam: eval for skilled needs vs home health 11/05/16 12:57 Consult to Physician [CONS] Routine Consulting Provider: BLANE LUCAS Reason For Exam: surgery Place consult to:: axel Notified:: yes Was contact made?: Yes If yes, spoke with:: Dr Lucas Time called:: 12:58 11/07/16 13:08 Consult to Physician [CONS] Routine Consulting Provider: ESTEFANÍA FOURNIER Reason For Exam: mrsa bacteremia Place consult to:: Dr. Fournier Notified:: [place] GUTIERREZ Phone number called:: Was contact made?: Yes If yes, spoke with:: MariajoseOffice Time called:: 13:23 11/21/16 08:30 Consult to Physician [CONS] Routine Consulting Provider: LORY MACIAS Reason For Exam: osteomyelitis/ discitis of L3/[address] consult to:: Neurosurgery Primary care physician: GEAR KEEPER Hospitalization Reason for admission: Sepsis, MRSA Condition: Stable Disposition: DC/[place] SNF [facility] Time spent for discharge: 31 minutes - Discharge Diagnoses (1) Biliary colic Status: Acute (2) Colostomy in place Status: Acute (3) Debility Status: Acute (4) Discitis of lumbar region Status: Acute (5) Leukocytosis (leucocytosis) Status: Acute Qualifiers: Leukocytosis type: L (6) Line sepsis associated with dialysis catheter Status: Acute (7) MRSA bacteremia Status: Acute (8) Osteomyelitis Status: Acute Qualifiers: Osteomyelitis location: O Laterality: L Chronicity: C (9) End-stage renal disease (ESRD) Status: Chronic (10) Acute cholecystitis Status: Resolved (11) Acute bronchitis Status: Acute Qualifiers: Bronchitis organism: other organism Qualified Code(s): J20.8 - Acute bronchitis due to other specified organisms (12) CHF (congestive heart failure) Status: Acute Qualifiers: Congestive heart failure type: unspecified congestive heart failure type Congestive heart failure chronicity: unspecified congestive heart failure chronicity Qualified Code(s): I50.9 - Heart failure, unspecified Core Measure Documentation - Palliative Care Palliative Care/ Comfort Measures: Not Applicable - Core Measures Any of the following diagnoses?: none Exam - Physical Exam Narrative exam: Not in cardiopulmonary distress. The patient appeared well nourished and normally developed. Vital signs as documented. Head exam is unremarkable. No scleral icterus . Neck is without jugular venous distension, thyromegaly, or carotid bruits. Lungs are clear to auscultation. Cardiac exam reveals regular rate and Rhythm. First and second heart sounds normal. No murmurs, rubs or gallops. Abdominal has colostomy bag on the left lower abdomen. EXTERNAL RELATIONS MANAGER: Alert and oriented 3. generalized weakness. - Constitutional Vitals: Temp Pulse Resp BP Pulse Ox 97.8 F 84 18 162/76 100 11/22/16 09:16 11/22/16 09:16 11/22/16 09:16 11/22/16 09:16 11/22/16 09:16 Plan Follow up with: PRIMARY MD MILANA [Primary Care Provider] - 3-5 Days Prescriptions: Vancomycin HCl in Dextrose 5 % [Vancomycin 750 mg/250 ml-D5w] 750 mg IV 3XW #18 plast..bag
[2016-11-22] MEDS: COREG PO SCH ×2 (12:15→21:32)
[2016-11-22] MEDS: LOVENOX SUB-Q SCH (12:15)
[2016-11-22] MEDS: PROTONIX PO SCH (12:16)
--- NOTE | 2016-11-22 12:40 | Progress Note ---
Assessment and Plan (1) Line sepsis associated with dialysis catheter/MRSA bactremia Current Visit: Yes Status: Acute Plan to address problem: Continue antibiotics (2) Discitis of lumbar region Current Visit: Yes Status: Acute Plan to address problem: Discitis and osteomyelitis of L3-L4. Continue antibiotics. Neurosurgery consult pending Pain control per primary team (3) End-stage renal disease (ESRD) Current Visit: Yes Status: Chronic Plan to address problem: HD today (4) Hypertensive chronic kidney disease with stage 5 chronic kidney disease or end stage renal disease Current Visit: Yes Status: Chronic Plan to address problem: BP stable. Follow-up blood pressure on current medications (5) Anemia in chronic kidney disease Current Visit: No Status: Chronic Plan to address problem: Give erythropoietin on dialysis. (6) Diabetes mellitus type II, controlled Current Visit: No Status: Chronic Qualifiers: Diabetes mellitus complication status: with kidney complications Diabetes mellitus complication detail: D Diabetic retinopathy severity: D Diabetes mellitus macular edema: D Diabetes mellitus manager terminal insulin use: D Chronic kidney disease stage: on chronic dialysis Plan to address problem: Blood sugar management by primary attending Subjective Date of service: 11/22/16 Principal diagnosis: Permacath related bacteremia; Discitis/vertebral osteomyelitis Interval history: c/o back pain " I just do not feel well" Objective - Exam Narrative Exam: G/A: Patient lying in bed, no apparent distress HEENT: Normocephalic, atraumatic, pupils equally round and reactive to light, extraocular movement intact, and no sclericterus,. No JVD or thyromegaly or nodule,neck supple, no carotid bruit ,mucous membranes moist, no exudate or erythema, permcath in place. No tenderness/erythema at exit site Heart: S1, S2, regular rate and rhythm Lungs: Clear to auscultation bilaterally, breathing comfortable Abdomen: Positive bowel sounds, tender on the right side, nondistended, no organomegaly Extremity: No edema, cyanosis, clubbing Skin: No rash, nodules, warm, dry Neuro: Oriented 3, cranial nerves II-12 intact, speech is fluent, motor and sensory intact - Vital Signs Vital signs: Vital Signs - 12hr 11/22/16 11/22/16 05:00 09:16 Temperature 98.5 F 97.8 F Pulse Rate [ 84 Left Radial] Pulse Rate [ 84 Right Radial] Respiratory 18 18 Rate Blood Pressure 174/79 162/76 [Right Radial Artery] O2 Sat by Pulse 97 100 Oximetry - Lab 11/22/16 04:37 11/22/16 04:37 Most recent lab results Calcium 8.1 mg/dL (8.4-10.2) L 11/22/16 04:37 Phosphorus 3.1 mg/dL (2.5-4.5) 11/02/16 04:36 Magnesium 1.7 mg/dL (1.7-2.3) 11/02/16 04:36
--- NOTE | 2016-11-22 15:12 | Progress Note ---
Assessment and Plan Assessment and plan: MRSA bacteremia - She is on IV vancomycin - blood cultures from 11/08/16 were negative - Vasc cath replaced - Echocardiography was done showed vegetation VS fibrin - ID Consult appreciated - Contact precaution Osteomyelitis / Discitis of L2/3 - Patient will continue with IV antibiotics - Neurosurgeon consult was placed but the doctor is out of town Cholecystitis s/p cholecystectomy -No abdominal pain - CT was negative End stage renal disease on hemodialysis - Vasc cath plced and continue hemodialysis Hypertension - Controlled DM2 - Continue current management DVT prophylaxis - on lovenox Disposition - To SNF for acute rehab, patient approved by her insurance for acute rehabilitation. - Agent is on contact isolation, pending placement. - Stable to be discharged with IV antibiotics. - Patient Problems (1) Biliary colic Current Visit: Yes Status: Acute (2) Colostomy in place Current Visit: Yes Status: Acute (3) Debility Current Visit: Yes Status: Acute (4) Discitis of lumbar region Current Visit: Yes Status: Acute (5) Leukocytosis (leucocytosis) Current Visit: Yes Status: Acute Qualifiers: Leukocytosis type: L (6) Line sepsis associated with dialysis catheter Current Visit: Yes Status: Acute (7) MRSA bacteremia Current Visit: Yes Status: Acute (8) Osteomyelitis Current Visit: Yes Status: Acute Qualifiers: Osteomyelitis location: O Laterality: L Chronicity: C (9) End-stage renal disease (ESRD) Current Visit: Yes Status: Chronic (10) Acute cholecystitis Current Visit: Yes Status: Resolved (11) Acute bronchitis Current Visit: No Status: Acute Qualifiers: Bronchitis organism: other organism Qualified Code(s): J20.8 - Acute bronchitis due to other specified organisms (12) CHF (congestive heart failure) Current Visit: No Status: Acute Qualifiers: Congestive heart failure type: unspecified congestive heart failure type Congestive heart failure chronicity: unspecified congestive heart failure chronicity Qualified Code(s): I50.9 - Heart failure, unspecified History Interval history: Patient was seen and evaluated this morning. She denied fevers, chills. complains generalized weakness. Hospitalist Physical - Physical exam Narrative exam: Not in cardiopulmonary distress. The patient is emaciated Vital signs as documented. Head exam is unremarkable. No scleral icterus . Neck is without jugular venous distension, thyromegaly, or carotid bruits. Lungs are clear to auscultation. Cardiac exam reveals regular rate and Rhythm. First and second heart sounds normal. No murmurs, rubs or gallops. Abdominal exam reveals normal bowel sounds, no masses, no organomegaly and no aortic enlargement. Extremities are colostomy. TOOL MECHANIC: Alert and oriented 3. - Constitutional Vitals: Temp Pulse Resp BP Pulse Ox 97.8 F 84 18 162/76 95 11/22/16 09:16 11/22/16 10:00 11/22/16 10:00 11/22/16 09:16 11/22/16 10:00 General appearance: Present: no acute distress, cachectic Results - Labs CBC & Chem 7: 11/22/16 04:37 11/22/16 04:37 Labs: Laboratory Last Values WBC 4.8 K/mm3 (4.5-11.0) 11/22/16 04:37 RBC 2.59 M/mm3 (3.65-5.03) L 11/22/16 04:37 Hgb 7.1 gm/dl (10.1-14.3) L 11/22/16 04:37 Hct 22.1 % (30.3-42.9) L 11/22/16 04:37 MCV 85 fl (79-97) 11/22/16 04:37 MCH 27 pg (28-32) L 11/22/16 04:37 MCHC 32 % (30-34) 11/22/16 04:37 RDW 17.9 % (13.2-15.2) H 11/22/16 04:37 Plt Count 216 K/mm3 (140-440) 11/22/16 04:37 Lymph % (Auto) 6.4 % (13.4-35.0) L 11/14/16 05:00 Leslie % (Auto) Manager Activities 11/22/16 04:37 Eos % (Auto) 1.2 % (0.0-4.3) 11/14/16 05:00 Baso % (Auto) 0.9 % (0.0-1.8) 11/14/16 05:00 Lymph # 0.8 K/mm3 (1.2-5.4) L 11/14/16 05:00 Leslie # 0.9 K/mm3 (0.0-0.8) H 11/14/16 05:00 Eos # 0.1 K/mm3 (0.0-0.4) 11/14/16 05:00 Baso # 0.1 K/mm3 (0.0-0.1) 11/14/16 05:00 Add Manual Diff Complete 11/22/16 04:37 Total Counted 100 11/22/16 04:37 Seg Neutrophils % 84.2 % (40.0-70.0) H 11/14/16 05:00 Seg Neuts % (Manual) 46.0 % (40.0-70.0) 11/22/16 04:37 Band Neutrophils % 3.0 % 11/22/16 04:37 Lymphocytes % (Manual) 30.0 % (13.4-35.0) 11/22/16 04:37 Reactive Lymphs % (Man) 0 % 11/22/16 04:37 Monocytes % (Manual) 18.0 % (0.0-7.3) H 11/22/16 04:37 Eosinophils % (Manual) 2.0 % (0.0-4.3) 11/22/16 04:37 Basophils % (Manual) 1.0 % (0.0-1.8) 11/22/16 04:37 Metamyelocytes % 0 % 11/22/16 04:37 Myelocytes % 0 % 11/22/16 04:37 Promyelocytes % 0 % 11/22/16 04:37 Blast Cells % 0 % 11/22/16 04:37 Nucleated RBC % Not Reportable 11/22/16 04:37 Seg Neutrophils # 10.9 K/mm3 (1.8-7.7) H 11/14/16 05:00 Seg Neutrophils # Man 2.2 K/mm3 (1.8-7.7) 11/22/16 04:37 Band Neutrophils # 0.1 K/mm3 11/22/16 04:37 Lymphocytes # (Manual) 1.4 K/mm3 (1.2-5.4) 11/22/16 04:37 Abs React Lymphs (Man) 0.0 K/mm3 11/22/16 04:37 Monocytes # (Manual) 0.9 K/mm3 (0.0-0.8) H 11/22/16 04:37 Eosinophils # (Manual) 0.1 K/mm3 (0.0-0.4) 11/22/16 04:37 Basophils # (Manual) 0.0 K/mm3 (0.0-0.1) 11/22/16 04:37 Metamyelocytes # 0.0 K/mm3 11/22/16 04:37 Myelocytes # 0.0 K/mm3 11/22/16 04:37 Promyelocytes # 0.0 K/mm3 11/22/16 04:37 Blast Cells # 0.0 K/mm3 11/22/16 04:37 WBC Morphology Not Reportable 11/22/16 04:37 Hypersegmented Neuts Not Reportable 11/22/16 04:37 Hyposegmented Neuts Not Reportable 11/22/16 04:37 Hypogranular Neuts Not Reportable 11/22/16 04:37 Smudge Cells Not Reportable 11/22/16 04:37 Toxic Granulation Not Reportable 11/22/16 04:37 Toxic Vacuolation Not Reportable 11/22/16 04:37 Dohle Bodies Not Reportable 11/22/16 04:37 Pelger-Huet Anomaly Not Reportable 11/22/16 04:37 Aida Rods Not Reportable 11/22/16 04:37 Platelet Estimate Consistent w auto 11/22/16 04:37 Clumped Platelets Not Reportable 11/22/16 04:37 Plt Clumps, EDTA Not Reportable 11/22/16 04:37 Large Platelets Not Reportable 11/22/16 04:37 Giant Platelets Not Reportable 11/22/16 04:37 Platelet Satelliting Not Reportable 11/22/16 04:37 Plt Morphology Comment Not Reportable 11/22/16 04:37 RBC Morphology Not Reportable 11/22/16 04:37 Dimorphic RBCs Not Reportable 11/22/16 04:37 Polychromasia Not Reportable 11/22/16 04:37 Hypochromasia Not Reportable 11/22/16 04:37 Poikilocytosis Not Reportable 11/22/16 04:37 Anisocytosis 1+ 11/22/16 04:37 Microcytosis Not Reportable 11/22/16 04:37 Macrocytosis Not Reportable 11/22/16 04:37 Spherocytes Not Reportable 11/22/16 04:37 Pappenheimer Bodies Not Reportable 11/22/16 04:37 Sickle Cells Not Reportable 11/22/16 04:37 Target Cells Not Reportable 11/22/16 04:37 Tear Drop Cells Not Reportable 11/22/16 04:37 Ovalocytes Not Reportable 11/22/16 04:37 Helmet Cells Not Reportable 11/22/16 04:37 Munoz-Alder Bodies Not Reportable 11/22/16 04:37 [place] Rings Not Reportable 11/22/16 04:37 [place] Cells Not Reportable 11/22/16 04:37 Bite Cells Not Reportable 11/22/16 04:37 Crenated Cell Not Reportable 11/22/16 04:37 Elliptocytes Not Reportable 11/22/16 04:37 Acanthocytes (Spur) Not Reportable 11/22/16 04:37 Rouleaux Not Reportable 11/22/16 04:37 Hemoglobin C Crystals Not Reportable 11/22/16 04:37 Schistocytes Not Reportable 11/22/16 04:37 Malaria parasites Not Reportable 11/22/16 04:37 Jalil Bodies Not Reportable 11/22/16 04:37 Hem Pathologist Commnt No 11/22/16 04:37 POC ABG pH 7.488 (7.35-7.45) H 11/01/16 05:56 POC ABG pCO2 31.0 (35-45) L 11/01/16 05:56 POC ABG pO2 106 (80-105) H 11/01/16 05:56 POC ABG HCO3 23.5 11/01/16 05:56 POC ABG Total CO2 24 11/01/16 05:56 POC ABG O2 Sat 99 11/01/16 05:56 POC ABG Base Excess 0 11/01/16 05:56 FiO2 40 % 11/01/16 05:56 Sodium 133 mmol/L (137-145) L 11/22/16 04:37 Potassium 4.7 mmol/L (3.6-5.0) D 11/22/16 04:37 Chloride 94.0 mmol/L (98-107) L 11/22/16 04:37 Carbon Dioxide 26 mmol/L (22-30) 11/22/16 04:37 Anion Gap 18 mmol/L 11/22/16 04:37 BUN 26 mg/dL (7-17) H 11/22/16 04:37 Creatinine 4.9 mg/dL (0.7-1.2) H D 11/22/16 04:37 Estimated GFR 10 ml/min 11/22/16 04:37 BUN/Creatinine Ratio 5.30 % 11/22/16 04:37 Glucose 80 mg/dL (65-100) 11/22/16 04:37 POC Glucose 154 (70-105) H 11/22/16 12:46 Calcium 8.1 mg/dL (8.4-10.2) L 11/22/16 04:37 Phosphorus 3.1 mg/dL (2.5-4.5) 11/02/16 04:36 Magnesium 1.7 mg/dL (1.7-2.3) 11/02/16 04:36 Total Bilirubin 0.6 mg/dL (0.1-1.2) 11/01/16 22:37 AST 44 units/L (5-40) H 11/01/16 22:37 ALT 18 units/L (7-56) 11/01/16 22:37 Alkaline Phosphatase 109 units/L (35-129) 11/01/16 22:37 Total Protein 7.2 g/dL (6.3-8.2) 11/01/16 22:37 Albumin 2.4 g/dL (3.9-5) L 11/01/16 22:37 Albumin/Globulin Ratio 0.5 % 11/01/16 22:37 Urine Color Yellow (Yellow) 10/30/16 00:30 Urine Turbidity Slightly-cloudy (Clear) 10/30/16 00:30 Urine pH 5.0 (5.0-7.0) 10/30/16 00:30 Ur Specific [place] 1.015 (1.003-1.030) 10/30/16 00:30 Urine Protein 100 mg/dl mg/dL (Negative) 10/30/16 00:30 Urine Glucose (UA) Neg mg/dL (Negative) 10/30/16 00:30 Urine Ketones Tr mg/dL (Negative) 10/30/16 00:30 Urine Blood Neg (Negative) 10/30/16 00:30 Urine Nitrite Neg (Negative) 10/30/16 00:30 Urine Bilirubin Neg (Negative) 10/30/16 00:30 Urine Urobilinogen < 2.0 mg/dL (<2.0) 10/30/16 00:30 Ur Leukocyte Esterase Neg (Negative) 10/30/16 00:30 Urine WBC (Auto) 10.0 /HPF (0.0-6.0) H 10/30/16 00:30 Urine RBC (Auto) 2.0 /HPF (0.0-6.0) 10/30/16 00:30 U Epithel Cells (Auto) 6.0 /HPF (0-13.0) 10/30/16 00:30 Amorphous Crystals 1+ 10/30/16 00:30 Hyaline Casts 16 /LPF 10/30/16 00:30 Granular Casts 4 /LPF 10/30/16 00:30 Urine Mucus Few /HPF 10/30/16 00:30 Random Vancomycin 26.7 ug/mL (0-40.0) 11/22/16 04:37 Blood Type B POSITIVE 11/12/16 11:30 Antibody Screen Negative 11/12/16 11:30 Crossmatch See Detail 11/12/16 11:30
[2016-11-23 08:56] VITALS: BP 147/74
--- NOTE | 2016-11-23 09:44 | Progress Note ---
Assessment and Plan Current antibiotics: Vancomycin IV (Pulse doses) 10/30, 11/07 --> Previous antibiotics: Zosyn 4.5 g IV q8h 10/30-10/31 Ceftriaxone 1 g IV q24h 10/30-10/31 Metronidazole 500 mg IV q8h 10/31-11/07 Levaquin 500 mg IV q24h 10/30-11/07 ASSESSMENT: Barbra Babin is an 85 y/o female who lives independently with HTN, type 2 DM, ESRD on maintenance HD, COPD, systolic heart failure (EF 45-50 percent), previous bowel perforation with colostomy (~ 6 years ago) who had been hospitalized at 10/21-10/24 with hypoglycemia. She had been hospitalized approximately 4 weeks earlier with worsening renal failure requiring initiation of HD (M-W-Fr) via a right chest wall PC ( inserted 10/04/16). She re- presents on 10/30 with abdominal and back pain and is found to have with non- visualization of the gallbladder on HIDA scan. 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 Blood cultures are growing MRSA. Problem list: 1. MRSA bacteremia ( vancomycin KENY = 1.00) - 10/30:4/4 bottles + -11/06: 3/4 bottles + -Likely right chest wall permacath source. removed 11/08 -Repeat blood cultures on 11/08 No growth -11/07 transthoracic echocardiogram showed vegetation versus fibrin sheath on the catheter -11/17 MRI suggestive of discitis and vertebral osteomyeltis L3-L4 2. Biliary sepsis with acute cholecystitis - s/p open cholecystectomy - 10/31 3. Leukocytosis -2nd to above -Improving 4. ESRD -Maintenance HD -New Vas-Cath placed in right common femoral vein 11/10 5. Back pain -11/17 MRI suggestive of discitis and vertebral osteomyelitis L3-L4 6. Anemia 7. Type 2 diabetes mellitus PLAN: 1. Continue vancomycin to complete 6-8 week course. 2. Will need prolonged IV antibiotics in light of prolonged MRSA bacteremia and vertebral osteomyelitis Subjective Date of service: 11/23/16 Principal diagnosis: Permacath related bacteremia; Discitis/vertebral osteomyelitis Interval history: Denies back pain. Right groin catheter now out. Awaits prison transfer. Objective - Exam Narrative Exam: GENERAL: Well-developed, thin female who is alert and in no acute distress. Appears somewhat chronically ill. HEAD: Normocephalic. No lesions seen. Mild by temporalis muscle wasting. EYES: Pupils are equal reactive to light and accommodation. There is no scleral icterus. Optic fundi are not examined. Bilateral arcus senilis. EARS: Normal external ears without external drainage THROAT: Oropharynx is normal with no evidence of oral candidiasis or pharyngitis. Poor dentition. NECK: Supple. No enlargement of the thyroid gland. No significant cervical lymphadenopathy. No jugular venous distention at 30. LUNGS: Clear with no adventitious sounds. CHEST: PermCath site clean left chest wall. HEART: Regular rate. S1 and S2 are normal. There are no murmurs, gallops, clicks or rubs heard. ABDOMEN: Soft with mild right upper quadrant tenderness without guarding or rebound. Liver and spleen are not palpably enlarged or tender. No palpable masses. Bowel sounds are normoactive. Colostomy in place with healthy mucosa and functioning normally. Right upper quadrant abdominal wound healing with no signs of infection. EXTREMITIES: No rash, peripheral lymphadenopathy, clubbing or edema. Previous right inguinal line site without redness, swelling or tenderness. NEUROLOGIC: No focal findings. - Constitutional Vitals: Vital Signs Temp Pulse Resp BP Pulse Ox 98.0 F 88 16 147/74 100 11/23/16 08:55 11/23/16 08:55 11/23/16 08:55 11/23/16 08:55 11/23/16 08:55 Temperature -Last 24 Hours Temperature 98.0 F Temperature 98.2 F Temperature 97.6 F Temperature 98.7 F Temperature 98.7 F Temperature 101.6 F Temperature 101.6 F - Labs CBC & Chem 7: 11/22/16 04:37 11/22/16 04:37 Labs: Abnormal lab results 11/22/16 11/22/16 11/22/16 Range/Units 12:46 16:37 21:26 POC Glucose 154 H 153 H 236 H (70-105)
--- NOTE | 2016-11-23 09:50 | Discharge Summary ---
Providers - Providers Date of Admission: 10/30/16 02:48 Date of discharge: 11/23/16 Attending physician: SEAN LOUIS MD 10/30/16 09:06 Consult to Physician [CONS] Routine Consulting Provider: EVA SHAY Reason For Exam: ESRD on hemodialysis, for dialysis Place consult to:: Nephrology Notified:: office Phone number called:: Was contact made?: Yes If yes, spoke with:: nikhil Time called:: 09:49 10/31/16 18:48 Consult to Dietitian/Nutrition [CONS] Routine Physician Instructions: Reason For Exam: Reason for Consult: Pt needs oral supplement 11/03/16 07:48 Physical Therapy Evaluation and Treat [CONS] Routine Comment: Reason For Exam: eval for skilled needs vs home health 11/05/16 12:57 Consult to Physician [CONS] Routine Consulting Provider: BLANE LUCAS Reason For Exam: surgery Place consult to:: axel Notified:: yes Was contact made?: Yes If yes, spoke with:: Dr Lucas Time called:: 12:58 11/07/16 13:08 Consult to Physician [CONS] Routine Consulting Provider: ESTEFANÍA FOURNIER Reason For Exam: mrsa bacteremia Place consult to:: Dr. Fournier Notified:: [place] GUTIERREZ Phone number called:: Was contact made?: Yes If yes, spoke with:: Tanisha-Office Time called:: 13:23 11/21/16 08:30 Consult to Physician [CONS] Routine Consulting Provider: LORY MACIAS Reason For Exam: osteomyelitis/ discitis of L3/[address] consult to:: LORY MACIAS Notified:: Nia from answering service Phone number called:: [phone] Was contact made?: Yes Time called:: 07:09 Primary care physician: [employer]UDIES DIRECTOR Hospitalization Reason for admission: MRSA, sepsis, cholecystitis Condition: Stable Pertinent studies: Echo Procedures: Vasc cath Hospital course: Patient was initially admitted for cholecystitis and cholecystectomy was done, blood culture persistently grew MRSA, Echo was done and was not definite diagnosis of IE, patient was IV vancomycin, vasc catch was removed and replaced after blood culture turned negative in the mean timer the patient get her hemodialysis through a femoral catheter. Patient was complaining back pain and MRI of the spine was done and which was suspicious for osteomyelitis. ID, renal and vascular input was appreciated. patient was improved and discharged to SNF with IV vancomycin to be given with dialysis. Disposition: DC/TX SNF [facility] Time spent for discharge: 34 minutes - Discharge Diagnoses (1) Biliary colic Status: Acute (2) Colostomy in place Status: Acute (3) Debility Status: Acute (4) Discitis of lumbar region Status: Acute (5) Leukocytosis (leucocytosis) Status: Acute Qualifiers: Leukocytosis type: L (6) Line sepsis associated with dialysis catheter Status: Acute (7) MRSA bacteremia Status: Acute (8) Osteomyelitis Status: Acute Qualifiers: Osteomyelitis location: O Laterality: L Chronicity: C (9) End-stage renal disease (ESRD) Status: Chronic (10) Acute cholecystitis Status: Resolved (11) Acute bronchitis Status: Acute Qualifiers: Bronchitis organism: other organism Qualified Code(s): J20.8 - Acute bronchitis due to other specified organisms (12) CHF (congestive heart failure) Status: Acute Qualifiers: Congestive heart failure type: unspecified congestive heart failure type Congestive heart failure chronicity: unspecified congestive heart failure chronicity Qualified Code(s): I50.9 - Heart failure, unspecified Core Measure Documentation - Palliative Care Palliative Care/ Comfort Measures: Not Applicable - Core Measures Any of the following diagnoses?: none Exam - Physical Exam Narrative exam: Not in cardiopulmonary distress. The patient is emaciated Vital signs as documented. Head exam is unremarkable. No scleral icterus . Neck is without jugular venous distension, thyromegaly, or carotid bruits. Lungs are clear to auscultation. Cardiac exam reveals regular rate and Rhythm. First and second heart sounds normal. No murmurs, rubs or gallops. Abdominal exam reveals normal bowel sounds, no masses, no organomegaly and no aortic enlargement. Extremities are colostomy. 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 - Constitutional Vitals: Temp Pulse Resp BP Pulse Ox 98.0 F 88 16 147/74 100 11/23/16 08:55 11/23/16 08:55 11/23/16 08:55 11/23/16 08:55 11/23/16 08:55 Plan Diet: low cholesterol, low salt, diabetic, renal Follow up with: PRIMARY CARE, [Primary Care Provider] - 3-5 Days Prescriptions: Vancomycin HCl in Dextrose 5 % [Vancomycin 750 mg/250 ml-D5w] 750 mg IV 3XW #12 plast..bag Other Discharge Orders: Colostomy supplies (Amb) Location: Determined By Patient Colostomy supplies (Amb) Location: Determined By Patient
[2016-11-23] MEDS: LOVENOX SUB-Q SCH (09:59)
[2016-11-23] MEDS: COREG PO SCH (09:59)
[2016-11-23] MEDS: PROTONIX PO SCH (10:00)
[2016-11-23] MEDS: NOVOLOG SUB-Q SCH ×4 (12:13→12:18)
[2016-11-23] MEDS ORDERED: FLUSH HEPARIN IV ONE (14:25)
== END 2016-11-23 15:07 | DRG 853 ==
LOC: ED 21:10 → 3A 10-30 02:48 → CC1 10-31 20:31 → 4A 11-02 16:30
PROVIDERS: ADMIT Internal Medicine; ATTEND Internal Medicine
PROC: 5A1D60Z (ICD-10-PCS; 2016-10-30)
PROC: 30233N1 Transfusion of Nonautologous Red Blood Cells into Peripheral Vein, Percutaneous Approach (ICD-10-PCS; 2016-10-30)
PROC: 0WQF0ZZ Repair Abdominal Wall, Open Approach (ICD-10-PCS; principal; 2016-10-31)
PROC: 0FT40ZZ Resection of Gallbladder, Open Approach (ICD-10-PCS; principal; 2016-10-31)
PROC: 0FC90ZZ Extirpation of Matter from Common Bile Duct, Open Approach (ICD-10-PCS; principal; 2016-10-31)
PROC: 05PY33Z Removal of Infusion Device from Upper Vein, Percutaneous Approach (ICD-10-PCS; 2016-11-08)
PROC: 06H033Z Insertion of Infusion Device into Inferior Vena Cava, Percutaneous Approach (ICD-10-PCS; 2016-11-10)
PROC: B5191ZA Fluoroscopy of Inferior Vena Cava using Low Osmolar Contrast, Guidance (ICD-10-PCS; 2016-11-10)
PROC: B549ZZA Ultrasonography of Inferior Vena Cava, Guidance (ICD-10-PCS; 2016-11-10)
PROC: 02H633Z Insertion of Infusion Device into Right Atrium, Percutaneous Approach (ICD-10-PCS; 2016-11-13)
PROC: B244ZZZ Ultrasonography of Right Heart (ICD-10-PCS; 2016-11-13)
PROC: B2141ZZ Fluoroscopy of Right Heart using Low Osmolar Contrast (ICD-10-PCS; 2016-11-13)
DX: A41.9 Sepsis, unspecified organism (principal); N18.6 End stage renal disease; J96.01 Acute respiratory failure with hypoxia; I13.2 Hypertensive heart and chronic kidney disease with heart failure and with stage 5 chronic kidney disease, or end stage renal disease; I50.22 Chronic systolic (congestive) heart failure; N17.9 Acute kidney failure, unspecified; K80.00 Calculus of gallbladder with acute cholecystitis without obstruction; M86.9 Osteomyelitis, unspecified; Z68.1 Body mass index [BMI] 19.9 or less, adult; T82.7XXA Infection and inflammatory reaction due to other cardiac and vascular devices, implants and grafts, initial encounter; R10.9 Unspecified abdominal pain; E11.22 Type 2 diabetes mellitus with diabetic chronic kidney disease; M19.90 Unspecified osteoarthritis, unspecified site; J45.909 Unspecified asthma, uncomplicated; J44.9 Chronic obstructive pulmonary disease, unspecified; D63.1 Anemia in chronic kidney disease; K43.2 Incisional hernia without obstruction or gangrene; E11.69 Type 2 diabetes mellitus with other specified complication; J20.8 Acute bronchitis due to other specified organisms; Z87.01 Personal history of pneumonia (recurrent); E66.9 Obesity, unspecified; E11.649 Type 2 diabetes mellitus with hypoglycemia without coma; M46.46 Discitis, unspecified, lumbar region; Y92.238 Other place in hospital as the place of occurrence of the external cause; Z99.2 Dependence on renal dialysis; Z86.718 Personal history of other venous thrombosis and embolism; Z93.3 Colostomy status; Z87.891 Personal history of nicotine dependence; Z82.49 Family history of ischemic heart disease and other diseases of the circulatory system
CPT/HCPCS: 36415; 36556; 36558; 71010; 72148; 74176; 76705; 76937; 77001; 78226; 80048; 80053; 80202; 81001; 82803; 82962; 83735; 84100; 85007; 85025; 85027; 86403; 86850; 86900; 86901; 86920; 87040; 87070; 87076; 87086; 87116; 87186; 87205; 88304; 93005; 93010; 93306; 94002; 94003; 94760; 96365; 96366; 96375; A9537; C1750; C1752; C8929; G8978-GP; G8979-GP; J0690; J1642; J1644; J1650; J1815; J1885; J1956; J2250; J2270; J2370; J2405; J2543; J2704; J3010; J3370; J3480; J7030; J7050; P9016; Q9957

== ENCOUNTER 2017-01-05 14:34 | Inpatient (IN) | payer MEDICARE ==
--- NOTE | 2017-01-05 17:08 | Emergency Department Report ---
ED Abdominal Pain HPI - General Chief Complaint: Abdominal Pain Stated Complaint: CLOGGED COLOSTOMY BAG Time Seen by Provider: 01/05/17 16:24 Source: patient, EMS, old records reviewed Mode of arrival: Stretcher Limitations: No Limitations - History of Present Illness Initial Comments: 86-year-old female with past medical history of end-stage renal disease on dialysis, CHF, COPD, DVT, diabetes, hypertension, colostomy secondary to perforation, and Oma filter presents to the hospital with complaints of possible colostomy obstruction. Patient resides at [facility]. Transport showed up to take patient to her scheduled dialysis. RN at [facility] noticed that her colostomy bag was clogged and patient was brought to the ER instead for evaluation. Patient denies any pain, nausea, vomiting, or shortness of breath. - Related Data Home Medications Medication Instructions Recorded Confirmed Last Taken Mirtazapine 7.5 mg PO QHS 09/28/16 10/30/16 09/28/16 Calcium Acetate [Phoslo] 667 mg PO TID 10/21/16 10/30/16 Unknown Carvedilol [Coreg] 12.5 mg PO BID 10/21/16 10/30/16 Unknown Previous Rx's Medication Instructions Recorded Last Taken Type Albuterol Sulfate [Ventolin HFA] 2 puff IH Q4H PRN #1 pump 10/09/16 Unknown Rx Calcitriol [Rocaltrol] 0.25 mcg PO QDAY #30 capsule 10/09/16 Unknown Rx Famotidine [Pepcid] 20 mg PO BID #60 tablet 10/09/16 Unknown Rx amLODIPine [Norvasc] 10 mg PO DAILY #30 tablet 10/09/16 Unknown Rx Enoxaparin [Lovenox] 30 mg SUB-Q QDAY syringe 11/20/16 Unknown Rx Pantoprazole [Protonix TAB] 20 mg PO QDAY tablet.dr 11/20/16 Unknown Rx Acetaminophen [Acetaminophen TAB] 650 mg PO Q4H PRN #30 tablet 11/23/16 Unknown Rx Bisacodyl [Dulcolax suppos] 10 mg AL QDAY PRN #30 supp.rect 11/23/16 Unknown Rx Vancomycin HCl in Dextrose 5 % 750 mg IV 3XW #12 plast..bag 11/23/16 Unknown Rx [Vancomycin 750 mg/250 ml-D5w] Allergies Allergy/AdvReac Type Severity Reaction Status Date / Time No Known Allergies Allergy Verified 03/18/15 10:53 ED Review of Systems ROS: Stated complaint: CLOGGED COLOSTOMY BAG Other details as noted in HPI Comment: All other systems reviewed and negative Other: Constitutional: No fevers chills Eyes: No eye pain visual changes ENT: No ear pain or throat pain Neck: Denies pain Respiratory: Denies cough wheezing shortness of breath Cardiovascular: Denies chest pain, palpitations, syncope GI: Denies abdominal pain, nausea, vomiting, diarrhea Musculoskeletal: back pain Skin: Denies rash, lesions, erythema Neurologic: Denies headache, numbness, weakness Psychiatric: Denies suicidal ideation, hallucinations ED Past Medical Hx - Past Medical History Hx Hypertension: Yes Hx Congestive Heart Failure: Yes Hx Diabetes: Yes Hx Deep Vein Thrombosis: Yes Hx Renal Disease: Yes (HD MWF) Hx Arthritis: Yes Hx Asthma: Yes Hx COPD: Yes Additional medical history: Anemia requiring blood transfusion - Surgical History Additional Surgical History: FILTER FOR CLOTS. 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 - Social History Smoking Status: Former Smoker - Medications Home Medications: Home Medications Medication Instructions Recorded Confirmed Last Taken Type Mirtazapine 7.5 mg PO QHS 09/28/16 10/30/16 09/28/16 History Albuterol Sulfate [Ventolin HFA] 2 puff IH Q4H PRN #1 pump 10/09/16 10/30/16 Unknown Rx Calcitriol [Rocaltrol] 0.25 mcg PO QDAY #30 capsule 10/09/16 10/30/16 Unknown Rx Famotidine [Pepcid] 20 mg PO BID #60 tablet 10/09/16 10/30/16 Unknown Rx amLODIPine [Norvasc] 10 mg PO DAILY #30 tablet 10/09/16 10/30/16 Unknown Rx Calcium Acetate [Phoslo] 667 mg PO TID 10/21/16 10/30/16 Unknown History Carvedilol [Coreg] 12.5 mg PO BID 10/21/16 10/30/16 Unknown History Enoxaparin [Lovenox] 30 mg SUB-Q QDAY syringe 11/20/16 Unknown Rx Pantoprazole [Protonix TAB] 20 mg PO QDAY tablet. 11/20/16 Unknown Rx Acetaminophen [Acetaminophen TAB] 650 mg PO Q4H PRN #30 tablet 11/23/16 Unknown Rx Bisacodyl [Dulcolax suppos] 10 mg AL QDAY PRN #30 supp.rect 11/23/16 Unknown Rx Vancomycin HCl in Dextrose 5 % 750 mg IV 3XW #12 plast..bag 11/23/16 Unknown Rx [Vancomycin 750 mg/250 ml-D5w] ED Physical Exam - General Limitations: No Limitations - Other Other exam information: General: No limitations, patient is alert in no acute distress Head exam: Atraumatic, normocephalic Eyes exam: Normal appearance ENT: Moist mucous membrane, normal oropharynx Neck exam: Normal inspection, full range of motion Respiratory exam: Clear to auscultation bilateral, no wheezes, rales, crackles Cardiovascular: Normal rate and rhythm, normal heart sounds Abdomen: Soft, patient has a abdominal wall hernias left lower quadrant at area of colostomy. Colostomy bag is empty but opening her eyes are matted stool. Patient has no tenderness to the abdomen has normal bowel sounds. Extremity: Full range of motion normal inspection no deformity Back: Normal Inspection, full range of motion, no tenderness Neurologic: Alert, cranial nerves intact, no motor or sensory deficit Psychiatric: normal affect, normal mood Skin: Warm, dry, intactm ED Course Vital Signs 01/05/17 01/05/17 01/05/17 15:33 16:45 18:10 Temperature 98 F Pulse Rate 82 81 Respiratory 20 18 20 Rate Blood Pressure 174/85 Blood Pressure 188/97 [Left] O2 Sat by Pulse 100 98 100 Oximetry 01/05/17 01/05/17 01/05/17 18:45 18:59 22:00 Temperature Pulse Rate 93 H 93 H 85 Respiratory 18 16 Rate Blood Pressure 194/88 Blood Pressure 194/88 163/92 [Left] O2 Sat by Pulse 100 98 Oximetry 01/06/17 01/06/17 01/06/17 00:00 01:30 01:38 Temperature Pulse Rate 81 88 Respiratory 19 Rate Blood Pressure 170/84 Blood Pressure 162/89 170/84 [Left] O2 Sat by Pulse 97 99 Oximetry - Reevaluation(s) Reevaluation #1: 01/06/17 01:42 Pt stable during ed stay. - Consultations Consultation #1: 01/05/17 23:12 case d/w Dr Morley nephrology, he is familiar with the pt. Rec vancomycin and admission for further eval of worsening osteomyleties and discitis. Will check records to see if pt is still on abx with dialysis Case was discussed with Dr. Mccray with orthopedics. They will evaluate patient Case was also discussed with Dr. Álvarez neurosurgeon at [place] as per request of Dr. Stoll hospitalist request with neurosurgery consultation. Dr. Álvarez states no acute surgery recommended at this time. Patient can follow up next week as outpatient with Dr. Gaurav Chaudhary and call [phone] for apt. ED Medical Decision Making - Lab Data Result diagrams: 01/05/17 16:57 01/05/17 16:57 Lab Results 01/05/17 01/05/17 Range/Units 16:57 16:57 WBC 6.2 (4.5-11.0) K/mm3 RBC 4.35 (3.65-5.03) M/mm3 Hgb 11.8 (10.1-14.3) gm/dl Hct 37.5 (30.3-42.9) % MCV 86 (79-97) fl MCH 27 L (28-32) pg MCHC 32 (30-34) % RDW 17.2 H (13.2-15.2) % Plt Count 414 (140-440) K/mm3 Lymph % (Auto) 20.4 (13.4-35.0) % Hitchcock % (Auto) 6.7 (0.0-7.3) % Eos % (Auto) 5.7 H (0.0-4.3) % Baso % (Auto) 1.1 (0.0-1.8) % Lymph # 1.3 (1.2-5.4) K/mm3 Hitchcock # 0.4 (0.0-0.8) K/mm3 Eos # 0.4 (0.0-0.4) K/mm3 Baso # 0.1 (0.0-0.1) K/mm3 Seg Neutrophils % 66.1 (40.0-70.0) % Seg Neutrophils # 4.1 (1.8-7.7) K/mm3 Sodium 139 (137-145) mmol/L Potassium 3.7 (3.6-5.0) mmol/L Chloride 94.0 L (98-107) mmol/L Carbon Dioxide 28 (22-30) mmol/L Anion Gap 21 mmol/L BUN 25 H (7-17) mg/dL Creatinine 2.7 H (0.7-1.2) mg/dL Estimated GFR 20 ml/min BUN/Creatinine Ratio 9.25 % Glucose 155 H (65-100) mg/dL Calcium 9.8 (8.4-10.2) mg/dL Total Bilirubin 0.4 (0.1-1.2) mg/dL AST 29 (5-40) units/L ALT 17 (7-56) units/L Alkaline Phosphatase 121 (35-129) units/L Total Protein 8.6 H (6.3-8.2) g/dL Albumin 3.3 L (3.9-5) g/dL Albumin/Globulin Ratio 0.6 % Lipase 78 H (13-60) units/L - Radiology Data Radiology results: report reviewed CT abdomen and pelvis with oral contrast shows large left lower quadrant hernia without evidence of bowel obstruction. Worsening findings of discitis and osteomyelitis at L3-L4 compared to prior CT and MRI performed in November 2016. - Medical Decision Making Patient has no acute need for dialysis and also has no acute abdominal pathology. Patient has incidentally worsening L3-L4 vertebrae discitis/ diverticulitis based on CT scan. No signs of leukocytosis. Case discussed with die cast supervisor. Vancomycin ordered. Patient will be admitted for further consultation and evaluation. - Differential Diagnosis obstructed colostomy bag, bowel obstruction, abdominal hernia Critical Care Time: No Critical care attestation.: If time is entered above; I have spent that time in minutes in the direct care of this critically ill patient, excluding procedure time. ED Disposition Clinical Impression: ESRD on dialysis, Osteomyelitis of lumbar vertebra, Colostomy hernia Disposition: OP ADMITTED IP TO THIS HOSP Is pt being admited?: Yes Condition: Stable Time of Disposition: 00:00 (Dr Stoll/)
[2017-01-05 17:27] LABS: Basophils % (Auto) 1.1 % (0.0-1.8); Eosinophils % (Auto) 5.7 % (0.0-4.3); Hematocrit 37.5 % (30.3-42.9); Hemoglobin 11.8 gm/dl (10.1-14.3); Mean Corpuscular HGB Conc 32 % (30-34); Mean Corpuscular Hemoglobin 27 pg (28-32); Mean Corpuscular Volume 86 fl (79-97); Platelet Count 414 K/mm3 (140-440); Red Blood Count 4.35 M/mm3 (3.65-5.03); Red Cell Distribution Width 17.2 % (13.2-15.2); White Blood Count 6.2 K/mm3 (4.5-11.0)
[2017-01-05 17:36] LABS: Albumin 3.3 g/dL (3.9-5); Albumin/Globulin Ratio 0.6 %; BUN/Creatinine Ratio 9.25; Bilirubin,Total 0.4 mg/dL (0.1-1.2); Calcium 9.8 mg/dL (8.4-10.2); Potassium 3.7 mmol/L (3.6-5.0); Total Protein 8.6 g/dL (6.3-8.2)
[2017-01-05] MEDS ORDERED: CATAPRES PO ONE (18:44)
--- NOTE | 2017-01-05 19:59 | Admit Criteria Form ---
Admission Criteria Documentation: OSTEOMYELITIS Clinical Indications for Admission to Inpatient Care (Place 'X' for any and all applicable criteria) Admission is indicated by 1 or more of the following (1)(2)(3)(4)(5)(6): [ ] I. Significant systemic illness indicated by 2 or more of the following: [ ]a) Core (eg rectal) temperature greater or equal kw360N(37.8C) in an adult [ ]b) Oral temperature[A] greater than or equal to 99.3 degrees F ( 37.4 degrees C) in an adult [ ]c) Heart rate greater than 90 beats per minute [ ]d) Respiratory rate greater than 20 breaths per minute or PaCO2 less than 32 mm Hg (4.3 kPa) [ ]e) White blood cell count > 12,000/mm3 (12 x109/L) or < 4000/mm3 ( 4 x109/L) or > 10% band cells [ ] II. Hemodynamic instability [ ] III. Severe pain requiring acute inpatient management [ ] IV. Bacteremia [ ] V. Altered Mental status that is severe or persistent [ ] . Limb-threatening infection [ ] VII. Suspected necrotizing soft tissue infection (e.g., gas in tissue) [ ] VIII.Surgical intervention required (e.g., bone or soft tissue debridement, removal of foreign body, or revascularization procedure) not performable in outpatient or emergency department level of care(7) [ ] IX. Appropriate monitoring and therapy (IV antibiotics) cannot be immediately arranged for home or outpatient setting [ ] X. Failure of outpatient treatment [ ] XI. High-risk comorbid condition present including 1 or more of the following: [ ]a) Poorly controlled diabetes (e.g., HbA1c greater than 10% (0.1)) [ ]b) Vascular insufficiency to affected area [ ]c) Cirrhosis [ ]d) Neutropenia [ ]e) Asplenia [ ]f) Immunosuppression (e.g., chronic systemic corticosteroid use) [ ]g) Symptomatic heart failure [ ] XII. Joint involvement (e.g., septic arthritis) suspected [X] XIII.Vertebral osteomyelitis [ ] XIV. Skull-base osteomyelitis (e.g.,"malignant external otitis")[A](8)(9)(10 ) Extended stay beyond goal length of stay may be needed for(1)(3)(4)(5)(24)(25): [ ]a) Inadequate clinical response to antibiotics (e.g., continued fever, hypotension) [ ]b) Bacteremia [ ]c) Surgical intervention needed (e.g., beyond superficial debridement)(26) [ ]d) Vertebral osteomyelitis with spinal cord compression, abscess formation, or mechanical instability [ ]e) Antibiotic-resistant organism identified (e.g., methicillin-resistant Staphylococcal aureus) [ ]f) Severe concomitant cellulitis [ ]g) Acute metabolic disorder [ ]h) Unstable comorbidities (e.g., heart failure, renal insufficiency, immunosuppressed state)(28) [ ]i) Clinically significant malnutrition [ ]j) Acute renal failure The original [facility] [place] [employer] [place] content created by [facility] has been revised. The portions of the content which have been revised are identified through the use of italic text or in bold, and [facility] has neither reviewed nor approved the modified material. All other unmodified content is copyright [facility] [facility].Edition 2016. Admission Criteria Met: Yes
--- NOTE | 2017-01-05 21:12 | Cat Scan Report ---
FINAL REPORT EXAM: CT ABDOMEN PELVIS WO CON HISTORY: llq distention, colostomy TECHNIQUE: CT images are acquired through the Abdomen and Pelvis following ingestion of positive enteric contrast. Transaxial, coronal and sagittal reformations are provided. PRIORS: 11/12/2016, MRI lumbar spine 11/16/2016 FINDINGS: Partially visualized intrathoracic contents are remarkable for a trace right pleural effusion with associated atelectasis, as well as left lung scarring/atelectasis. Vascular catheter terminates near the superior cavoatrial junction. Cholecystectomy. The liver, pancreas, spleen and adrenal glands demonstrate an unremarkable noncontrast appearance Kidneys show no worrisome lesions, hydronephrosis, or calculi. No stones in the urinary bladder. Positive enteric contrast is seen as far distally as the cecum. Left lower quadrant ostomy large small bowel and colon containing hernia measures approximately 5 x 4 cm at the neck with overall hernia sac dimensions of approximately 18 x 16 millimeters. Contrast passes into and out of the hernia in the small bowel. Small and large bowel are normal in caliber. No findings of acute appendicitis. No pneumoperitoneum. Aorta is tortuous and normal in caliber with scattered atherosclerosis. IVC filter is present. Anteverted uterus with dystrophic calcification. No significant free fluid in the pelvis is present. Worsening endplate erosion at L3-L4 compared to most recent exams. IMPRESSION: Worsening findings of diskitis and osteomyelitis at L3-L4 compared to 11/16/2016 and 11/12/2016 examinations. Large left lower quadrant hernia without evidence of bowel obstruction as detailed above. Dr. Corley discussed findings with Dr. Hines at [facility] following the examination.
[2017-01-05] MEDS ORDERED: VANCOMYCIN/NS 1 GM/250 ML 1 GM/250 ML BAG IV ONE (22:41)
[2017-01-06] MEDS ORDERED: APRESOLINE IV PRN (00:11)
[2017-01-06] MEDS ORDERED: PROAIR IH PRN (00:12)
[2017-01-06] MEDS ORDERED: DULCOLAX PR PRN (00:12)
[2017-01-06] MEDS ORDERED: TYLENOL PO PRN (00:12)
--- NOTE | 2017-01-06 00:20 | History and Physical Report ---
History of Present Illness Date of examination: 01/06/17 Chief complaint: Colostomy problems, history from chart as patient is confused History of present illness: Patient is an 86 y/o female with a plethora of severe comorbidities including HTN, type 2 DM, ESRD on maintenance HD, COPD, systolic heart failure (EF 45-50 percent), previous bowel perforation with colostomy (~ 7 years ago) who had been hospitalized at [facility] 10/21-10/24 with hypoglycemia. She had been hospitalized approximately 4 weeks earlier with worsening renal failure requiring initiation of HD (M-W-Fr) via a right chest wall PC (inserted 10/04/16) . She re- presents on 10/30 with abdominal and back pain and is found to have with non-visualization of the gallbladder on HIDA scan. 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 Blood cultures are growing MRSA. Patient also found to have osteomyelitis treated with IV vancomycin. Patient is a very poor historian gives no history. Patient states, "I am so confused". Past History Past Medical History: other (as hpi) Past Surgical History: cholecystectomy, bowel surgery Social history: full code. denies: smoking, alcohol abuse, prescription drug abuse, IV drug use Family history: no significant family history Medications and Allergies Allergies Allergy/AdvReac Type Severity Reaction Status Date / Time No Known Allergies Allergy Verified 03/18/15 10:53 Home Medications Medication Instructions Recorded Confirmed Last Taken Type Mirtazapine 7.5 mg PO QHS 09/28/16 10/30/16 09/28/16 History Albuterol Sulfate [Ventolin HFA] 2 puff IH Q4H PRN #1 pump 10/09/16 10/30/16 Unknown Rx Calcitriol [Rocaltrol] 0.25 mcg PO QDAY #30 capsule 10/09/16 10/30/16 Unknown Rx Famotidine [Pepcid] 20 mg PO BID #60 tablet 10/09/16 10/30/16 Unknown Rx amLODIPine [Norvasc] 10 mg PO DAILY #30 tablet 10/09/16 10/30/16 Unknown Rx Calcium Acetate [Phoslo] 667 mg PO TID 10/21/16 10/30/16 Unknown History Carvedilol [Coreg] 12.5 mg PO BID 10/21/16 10/30/16 Unknown History Enoxaparin [Lovenox] 30 mg SUB-Q QDAY syringe 11/20/16 Unknown Rx Pantoprazole [Protonix TAB] 20 mg PO QDAY tablet. 11/20/16 Unknown Rx Acetaminophen [Acetaminophen TAB] 650 mg PO Q4H PRN #30 tablet 11/23/16 Unknown Rx Bisacodyl [Dulcolax suppos] 10 mg SD QDAY PRN #30 supp.rect 11/23/16 Unknown Rx Vancomycin HCl in Dextrose 5 % 750 mg IV 3XW #12 plast..bag 11/23/16 Unknown Rx [Vancomycin 750 mg/250 ml-D5w] Active Meds: Active Medications Acetaminophen (Tylenol) 650 mg PO Q4H PRN PRN Reason: Pain MILD(1-3)/Fever >100.5/LEBRON Albuterol (Proair) 2 puff IH Q4H PRN PRN Reason: Shortness Of Breath Amlodipine Besylate (Norvasc) 10 mg PO DAILY YAMILETH Bisacodyl (Dulcolax) 10 mg SD QDAY PRN PRN Reason: Constipation unrelieved by MOM Calcitriol (Rocaltrol) 0.25 mcg PO QDAY YAMILETH Calcium Acetate (Phoslo) 667 mg PO TID YAMILETH Carvedilol (Coreg) 12.5 mg PO BID YAMILETH Famotidine (Pepcid) 20 mg PO BID YAMILETH Heparin Sodium (Porcine) (Heparin) 5,000 unit SUB-Q Q12HR YAMILETH Hydralazine HCl (Apresoline) 10 mg IV Q4HR PRN PRN Reason: Blood Pressure Sodium Chloride (Nacl 0.9% 1000 Ml) 1,000 mls @ 75 mls/hr IV DIRECT YAMILETH Miscellaneous Medication (Mirtazapine [Mirtazapine]) 7.5 mg PO QHS YAMILETH Pantoprazole Sodium (Protonix) 20 mg PO QDAY YAMILETH Vancomycin HCl (Vancomycin Pharmacy To Dose) 1 each IV PKCONSULT YAMILETH PRN Reason: Protocol Review of Systems ROS unobtainable: due to mental status Exam - Physical Exam Narrative exam: GEN: Chronically debilitated thin frail woman wake alert oriented 1 HEENT: NCAT, PERRL, EOMI, OP CLEAR NECK: SUPPLE, NO THYROMEGALY, NO JVD, NO LAD CVS: RRR, NORMAL S1S2 LUNGS/CHEST: CTA B, NORMAL CHEST EXPANSION B, GOOD AIR ENTRY B ABD: SOFT COLOSTOMY WITH BOWEL MOVEMENT, GBS, NO REBOUND OR GUARDING EXT/SKIN: NO SIGNIFICANT EDEMA OR RASH, poor skin turgor MSK: FROM X 4 EXTREMITIES NEURO: CN 2-12 GROSSLY INTACT, NO new FOCAL DEFICITS PSY: CALM - Constitutional Vitals: Temp Pulse Resp BP Pulse Ox 98 F 93 H 18 194/88 100 01/05/17 15:33 01/05/17 18:59 01/05/17 18:45 01/05/17 18:59 01/05/17 18:45 Results - Labs CBC & Chem 7: 01/05/17 16:57 01/05/17 16:57 Labs: Abnormal lab results 01/05/17 01/05/17 Range/Units 16:57 16:57 MCH 27 L (28-32) pg RDW 17.2 H (13.2-15.2) % Eos % (Auto) 5.7 H (0.0-4.3) % Chloride 94.0 L (98-107) mmol/L BUN 25 H (7-17) mg/dL Creatinine 2.7 H (0.7-1.2) mg/dL Glucose 155 H (65-100) mg/dL Total Protein 8.6 H (6.3-8.2) g/dL Albumin 3.3 L (3.9-5) g/dL Lipase 78 H (13-60) units/L Assessment and Plan Patient 86-year-old woman history end-stage renal disease, type 2 diabetes mellitus, systolic heart for EF 45%, hypertension, colostomy and treated vertebral osteomyelitis who presents with a decrease input from her colostomy and she subsequently missed hemodialysis. She had a CT which show worsening of L3-L4 osteomyelitis hence the admission. ED physician has spoke with neurosurgeon at [facility] per my request=>no acute surgical need at this time he ( Dr. Woodard) recommended outpatient biopsy. Nephrology has also been called as well as orthopedic surgery. -Vertebral osteomyelitis L3-L4 acute on chronic worsening: Treat with IV antibiotics, consulted infectious disease and orthopedic surgery, give gentle hydration she appears to be dehydrated, she has history of CHF and end-stage renal disease we'll be careful. -Acute metabolic encephalopathy due to the above -End-stage renal disease: Consult nephrology for hemodialysis -Accelerated hypertension: IV hydralazine restart home medications should improve with dialysis -Colostomy problems with h/o low output, which has stool in it: consulted wound care. -DVT prophylaxis: subcutaneous heparin
[2017-01-06] MEDS ORDERED: PROVENTIL IH PRN (00:32)
[2017-01-06] MEDS ORDERED: VANCOMYCIN PHARMACY TO DOSE IV SCH (01:00)
[2017-01-06] MEDS ORDERED: VANCOMYCIN/NS 500 MG/100 ML 500 MG/100 ML BAG IV ONE (01:00)
[2017-01-06] MEDS ORDERED: NACL 0.9% 1000 ML 1,000 ML IV SCH ×2 (01:00)
[2017-01-06] MEDS ORDERED: APRESOLINE ONE (01:28)
[2017-01-06] MEDS: HEPARIN SUB-Q SCH ×4 (02:41→22:00)
--- NOTE | 2017-01-06 07:31 | Progress Note ---
Assessment and Plan Assessment and plan: Patient is an 86 y/o female with a plethora of severe comorbidities including HTN, type 2 DM, ESRD on maintenance HD, COPD, systolic heart failure (EF 45-50 percent), previous bowel perforation with colostomy (~ 7 years ago) who had been hospitalized at [facility] 10/21-10/24 with hypoglycemia. She had been hospitalized approximately 4 weeks earlier with worsening renal failure requiring initiation of HD (M-W-Fr) via a right chest wall PC (inserted 10/04/16) . She re- presents on 10/30 with abdominal and back pain and is found to have with non-visualization of the gallbladder on HIDA scan. 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 Blood cultures are growing MRSA. Patient also found to have osteomyelitis treated with IV vancomycin presents with a decrease input from her colostomy and she subsequently missed hemodialysis. She had a CT which show worsening of L3-L4 osteomyelitis hence the admission. ED physician has spoke with neurosurgeon at [facility] per my request=>no acute surgical need at this time he (Dr. Woodard) recommended outpatient biopsy. Nephrology has also been called as well as orthopedic surgery. Patient is a very poor historian gives no history. Patient states, "I am so confused". -Vertebral osteomyelitis L3-L4 acute on chronic worsening: Continue with vancomycin. I'm trying at this time to ascertain if patient was treated while in the facility. Family also going to call to get that information., consulted infectious disease and orthopedic surgery, will discontinue IV fluids at this time., she has history of CHF and end-stage renal disease we'll be careful. -Acute metabolic encephalopathy due to the above-stable or resolved. -End-stage renal disease: Consult nephrology for hemodialysis -Accelerated hypertension: IV hydralazine restart home medications should improve with dialysis -Colostomy problems with h/o low output, which has stool in it: consulted wound care. We'll give a dose of lactulose today showed no constipation episodes. -DVT prophylaxis: subcutaneous heparin Plan of care discussed with the daughter. History Interval history: Patient seen and examined continue use to complain of low back pain. Denies any chest pain. Denies any abdominal pain. I did discuss with the daughter who does not recall being told of this back osteomyelitis but recalls that the patient was on antibiotics in the facility but does not know which type. Hospitalist Physical - Physical exam Narrative exam: VITAL SIGNS: Reviewed. GENERAL: The patient appeared well nourished and normally developed. Vital signs as documented. HEAD: No signs of head trauma. EYES: Pupils are equal. Extraocular motions intact. EARS: Hearing grossly intact. MOUTH: Oropharynx is normal. NECK: No adenopathy, no JVD. CHEST: Chest with clear breath sounds bilaterally. No wheezes, rales, or rhonchi. CARDIAC: Regular rate and rhythm. S1 and S2, without murmurs, gallops, or rubs. VASCULAR: No Edema. Peripheral pulses normal and equal in all extremities. ABDOMEN: Soft, without detectable tenderness. No sign of distention. No rebound or guarding, and no masses palpated. Bowel Sounds normal. MUSCULOSKELETAL: Paraspinous tenderness around the lumbar sacral region. Good range of motion of all major joints. Extremities without clubbing, cyanosis or edema. NEUROLOGIC EXAM: Alert and oriented x 2. At baseline dementia. No focal sensory or strength deficits. Speech normal. Follows commands. Gait is not assessed PSYCHIATRIC: Mood normal. SKIN: No rash or lesions. - Constitutional Vitals: Temp Pulse Resp BP Pulse Ox 99.3 F 92 H 18 143/77 96 01/06/17 04:00 01/06/17 04:00 01/06/17 04:00 01/06/17 04:00 01/06/17 02:00 Results - Labs CBC & Chem 7: 01/05/17 16:57 01/05/17 16:57 Labs: Laboratory Last Values WBC 6.2 K/mm3 (4.5-11.0) 01/05/17 16:57 RBC 4.35 M/mm3 (3.65-5.03) 01/05/17 16:57 Hgb 11.8 gm/dl (10.1-14.3) 01/05/17 16:57 Hct 37.5 % (30.3-42.9) 01/05/17 16:57 MCV 86 fl (79-97) 01/05/17 16:57 MCH 27 pg (28-32) L 01/05/17 16:57 MCHC 32 % (30-34) 01/05/17 16:57 RDW 17.2 % (13.2-15.2) H 01/05/17 16:57 Plt Count 414 K/mm3 (140-440) 01/05/17 16:57 Lymph % (Auto) 20.4 % (13.4-35.0) 01/05/17 16:57 [place] % (Auto) 6.7 % (0.0-7.3) 01/05/17 16:57 Eos % (Auto) 5.7 % (0.0-4.3) H 01/05/17 16:57 Baso % (Auto) 1.1 % (0.0-1.8) 01/05/17 16:57 Lymph # 1.3 K/mm3 (1.2-5.4) 01/05/17 16:57 [place] # 0.4 K/mm3 (0.0-0.8) 01/05/17 16:57 Eos # 0.4 K/mm3 (0.0-0.4) 01/05/17 16:57 Baso # 0.1 K/mm3 (0.0-0.1) 01/05/17 16:57 Seg Neutrophils % 66.1 % (40.0-70.0) 01/05/17 16:57 Seg Neutrophils # 4.1 K/mm3 (1.8-7.7) 01/05/17 16:57 Sodium 139 mmol/L (137-145) 01/05/17 16:57 Potassium 3.7 mmol/L (3.6-5.0) 01/05/17 16:57 Chloride 94.0 mmol/L (98-107) L 01/05/17 16:57 Carbon Dioxide 28 mmol/L (22-30) 01/05/17 16:57 Anion Gap 21 mmol/L 01/05/17 16:57 BUN 25 mg/dL (7-17) H 01/05/17 16:57 Creatinine 2.7 mg/dL (0.7-1.2) H 01/05/17 16:57 Estimated GFR 20 ml/min 01/05/17 16:57 BUN/Creatinine Ratio 9.25 % 01/05/17 16:57 Glucose 155 mg/dL (65-100) H 01/05/17 16:57 Calcium 9.8 mg/dL (8.4-10.2) 01/05/17 16:57 Total Bilirubin 0.4 mg/dL (0.1-1.2) 01/05/17 16:57 AST 29 units/L (5-40) 01/05/17 16:57 ALT 17 units/L (7-56) 01/05/17 16:57 Alkaline Phosphatase 121 units/L (35-129) 01/05/17 16:57 Total Protein 8.6 g/dL (6.3-8.2) H 01/05/17 16:57 Albumin 3.3 g/dL (3.9-5) L 01/05/17 16:57 Albumin/Globulin Ratio 0.6 % 01/05/17 16:57 Lipase 78 units/L (13-60) H 01/05/17 16:57 - Imaging and Cardiology CT scan - abdomen: image reviewed (large hernia. Family aware of this.) CT scan - pelvis: image reviewed
[2017-01-06] MEDS ORDERED: NACL 0.9% 100 ML IV PRN (07:54)
[2017-01-06] MEDS ORDERED: VANCOMYCIN/NS 1 GM/250 ML 1 GM/250 ML BAG IV ONE (10:00)
[2017-01-06] MEDS ORDERED: PROTONIX PO SCH (10:00)
--- NOTE | 2017-01-06 10:04 | XRay Report ---
ABDOMINAL SERIES: History: Abdominal distention. AP view of the chest demonstrates mild cardiomegaly and possible small left pleural effusion or left lower lobe segmental atelectasis. A dialysis catheter is in good position. Supine and upright views the abdomen demonstrate moderate gas throughout the small and large bowel loops but no evidence for obstruction. There is a large amount of gas overlying the left lower quadrant which may represent a hernia. Cholecystectomy clips are noted. IMPRESSION: Possible left abdominal hernia without obvious evidence of obstruction. Consider further evaluation with CT.
--- NOTE | 2017-01-06 11:48 | Consultation ---
History of Present Illness - Reason for Consult Consult date: 01/06/17 end stage renal disease, accelerated hypertension Requesting physician: NAYELY MACDONALD - History of Present Illness 86-year-old female known to our practice from previous hospitalizations, with hx of hypertension and chronic systolic heart failure, ESRD on HD on MWF schedule (dialysis started 10/04/16) previous bowel perforation with colostomy (~ 7 years ago), hospitalization at the end of October with with abdominal and back pain and She underwent open cholecystectomy on 10/31 ( "porcelain gallbladder "). Blood cultures then grew MRSA. She was diagnosed with permcath infection/ vertebral osteomyelitis for which she has been receiving Vancomycin, now presented with abdnominal pain/ RN at the [facility] noticed that her colostomy was clogged and sent pt to hospital instead of to HD center. On presentation to the ED, she had CT abdomen/pelvis done which showed that her L2- 3 lesion was worse than her previous CT scan. Abdominal Pain is improved after manual disimpaction of the ostomy. Pt a poor historian. We are consulted for management of her ESRD/HTN. 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 denies: smoking (quit smoking 6 years ago), alcohol abuse, prescription drug abuse Family history: CAD (mother of heart disease at age 77), hypertension, other (father of old age in his 90s) Medications and Allergies Allergies Allergy/AdvReac Type Severity Reaction Status Date / Time No Known Allergies Allergy Verified 03/18/15 10:53 Home Medications Medication Instructions Recorded Confirmed Last Taken Type Mirtazapine 7.5 mg PO QHS 09/28/16 10/30/16 09/28/16 History Albuterol Sulfate [Ventolin HFA] 2 puff IH Q4H PRN #1 pump 10/09/16 10/30/16 Unknown Rx Calcitriol [Rocaltrol] 0.25 mcg PO QDAY #30 capsule 10/09/16 10/30/16 Unknown Rx Famotidine [Pepcid] 20 mg PO BID #60 tablet 10/09/16 10/30/16 Unknown Rx amLODIPine [Norvasc] 10 mg PO DAILY #30 tablet 10/09/16 10/30/16 Unknown Rx Calcium Acetate [Phoslo] 667 mg PO TID 10/21/16 10/30/16 Unknown History Carvedilol [Coreg] 12.5 mg PO BID 10/21/16 10/30/16 Unknown History Enoxaparin [Lovenox] 30 mg SUB-Q QDAY syringe 11/20/16 Unknown Rx Pantoprazole [Protonix TAB] 20 mg PO QDAY tablet. 11/20/16 Unknown Rx Acetaminophen [Acetaminophen TAB] 650 mg PO Q4H PRN #30 tablet 11/23/16 Unknown Rx Bisacodyl [Dulcolax suppos] 10 mg AR QDAY PRN #30 supp.rect 11/23/16 Unknown Rx Vancomycin HCl in Dextrose 5 % 750 mg IV 3XW #12 plast..bag 11/23/16 Unknown Rx [Vancomycin 750 mg/250 ml-D5w] Active Meds: Active Medications Acetaminophen (Tylenol) 650 mg PO Q4H PRN PRN Reason: Pain MILD(1-3)/Fever >100.5/LEBRON Albuterol (Proventil) 2.5 mg IH Q4HRT PRN PRN Reason: Shortness Of Breath Amlodipine Besylate (Norvasc) 10 mg PO DAILY YAMILETH Bisacodyl (Dulcolax) 10 mg AR QDAY PRN PRN Reason: Constipation unrelieved by MOM Calcitriol (Rocaltrol) 0.25 mcg PO QDAY YAMILETH Calcium Acetate (Phoslo) 667 mg PO TIDWM YAMILETH Carvedilol (Coreg) 12.5 mg PO BID YAMILETH Famotidine (Pepcid) 20 mg PO QAM YAMILETH Heparin Sodium (Porcine) (Heparin) 5,000 unit SUB-Q Q12HR YAMILETH Last Admin: 01/06/17 02:41 Dose: 5,000 unit Hydralazine HCl (Apresoline) 10 mg IV Q4H PRN PRN Reason: Blood Pressure Last Admin: 01/06/17 01:30 Dose: 10 mg Sodium Chloride (Nacl 0.9% 1000 Ml) 1,000 mls @ 75 mls/hr IV DIRECT YAMILETH Stop: 01/06/17 14:19 Last Admin: 01/06/17 02:40 Dose: 75 mls/hr Sodium Chloride (Nacl 0.9%) 100 mls @ 999 mls/hr IV MERE PRN PRN Reason: Hypotension Mirtazapine (Remeron) 7.5 mg PO QHS [facility] Vancomycin HCl (Vancomycin Pharmacy To Dose) 1 each IV PKCONSULT YAMILETH PRN Reason: Protocol Review of Systems All systems: negative Constitutional: fatigue, weakness, poor appetite, no weight loss, no weight gain , no fever Ears, nose, mouth and throat: no nasal congestion, no nasal discharge, no sinus pressure Breasts: deferred Cardiovascular: no chest pain, no orthopnea, no palpitations Respiratory: no cough, no hemoptysis Gastrointestinal: abdominal pain, no nausea, no vomiting Genitourinary Female: flank pain, no pelvic pain Rectal: no pain, no incontinence Musculoskeletal: low back pain, myalgias Integumentary: no pruritis, no redness Neurological: change in mentation, no seizures Endocrine: no cold intolerance, no heat intolerance Hematologic/Lymphatic: no easy bruising, no easy bleeding Allergic/Immunologic: no urticaria, no allergic rhinitis Exam - Vital Signs Vital signs: Vital Signs Temp Pulse Resp BP Pulse Ox 98 F 82 20 174/85 100 01/05/17 15:33 01/05/17 15:33 01/05/17 15:33 01/05/17 15:33 01/05/17 15:33 - General Appearance General appearance: well-developed, well-nourished, appears stated age, fatigue , frail EENT: PERRL, mucous membranes moist Neck: Present: neck supple, trachea midline. Absent: JVD/HJR, Masses Respiratory: Clear to Ascultation, Other (no wheezing ) Heart: regular, normal heart rate, S1S2, no murmurs Gastrointestinal: Present: normoactive bowel sounds. Absent: tenderness Integumentary: no rash, warm and dry Neurologic: other (AO x2, normal speech) Musculoskeletal: Absent: deformities, joint swelling Psychiatric: mood/affect appropriate, cooperative Results - Lab Results 01/05/17 16:57 01/05/17 16:57 Most recent lab results Calcium 9.8 mg/dL (8.4-10.2) 04/07/17 16:57 Assessment and Plan 1. ESRD on HD since 2. Vertebral osteomyelitis L3-L4 worsening, She had MRSA bactremia in the last admission likely 2/2 permcath infection. Pt has been receiving vancomycin in the HD center. Her last negative blood culture was on 11/09 and she has been receiving vancomycin at HD center. Her last dose was on 01/03/17. 3. Accelerated HTN 4. Metabolic encephalopathy 5. Low colostomy out put, improved. 6. Anemia of ESRD Plan: HD arrangement made No Epogen 2/2 Hgb >11 Resumed oral BP medications Unclear if patient makes significant amount of urine but her CR is on the low end for ESRD especially considering her last HD being on Sunday. Will collect 24 hr urine to determine CR clearance and urine volume. ? some recovery. Started HD in October and before that baseline was CKD IV. Agree with ID consult. Her last negative blood culture was on 11/09. Vancomycin KENY on the last MRSA was at 1. And she has been receiving vancomycin at HD center with a goal of 6-8 weeks antibiotic coverage for vertebral osteo. Her last dose was on 01/03/17. Given worsening disckitis despite almost 8 weeks of vancomycin, will need to change antiotics and or consider other infecious ethiology for the cause of the worsening CT findings. Change antibiotics to Daptomycin. Blood culture repeated. Direct sample ? other infectious organisms. Place PPD. Obtain CxR F/u on ortho recommendations. Further recommendations to follow. Thank you for the consult.
[2017-01-06] MEDS ORDERED: CEPHULAC PO ONE ×2 (12:17→17:00)
[2017-01-06] MEDS ORDERED: NACL 0.9 (PRIMING MACHINE ONLY DIALYSIS) MC ONE (12:45)
[2017-01-06] MEDS: COREG PO SCH ×3 (12:53→22:00)
[2017-01-06] MEDS: PHOSLO PO SCH ×2 (12:53→17:39)
[2017-01-06] MEDS: NORVASC PO SCH ×2 (12:53→17:42)
[2017-01-06] MEDS: ROCALTROL PO SCH ×2 (12:54→17:44)
[2017-01-06] MEDS: PEPCID PO SCH ×2 (12:54→17:43)
[2017-01-06] MEDS: HEPARIN IV PRN (17:51)
[2017-01-06] MEDS ORDERED: APLISOL ID ONE (20:45)
[2017-01-06] MEDS: REMERON PO SCH (22:00)
[2017-01-07 05:38] LABS: Hematocrit 34.5 % (30.3-42.9); Hemoglobin 10.7 gm/dl (10.1-14.3); Mean Corpuscular HGB Conc 31 % (30-34); Mean Corpuscular Hemoglobin 27 pg (28-32); Mean Corpuscular Volume 87 fl (79-97); Platelet Count 346 K/mm3 (140-440); Red Blood Count 3.95 M/mm3 (3.65-5.03); White Blood Count 5.7 K/mm3 (4.5-11.0)
[2017-01-07 08:03] LABS: Albumin/Globulin Ratio 0.7 %; BUN/Creatinine Ratio 6.07; Bilirubin,Total 0.3 mg/dL (0.1-1.2); Calcium 8.8 mg/dL (8.4-10.2); Chloride 95.1 mmol/L (98-107); Potassium 3.1 mmol/L (3.6-5.0); Total Protein 7.5 g/dL (6.3-8.2)
[2017-01-07] MEDS: PHOSLO PO SCH ×3 (08:28→18:43)
--- NOTE | 2017-01-07 09:20 | Progress Note ---
Assessment and Plan Assessment and plan: Patient is an 86 y/o female with a plethora of severe comorbidities including HTN, type 2 DM, ESRD on maintenance HD, COPD, systolic heart failure (EF 45-50 percent), previous bowel perforation with colostomy (~ 7 years ago) who had been hospitalized at [facility] 10/21-10/24 with hypoglycemia. She had been hospitalized approximately 4 weeks earlier with worsening renal failure requiring initiation of HD (M-W-Fr) via a right chest wall PC (inserted 10/04/16) . She re- presents on 10/30 with abdominal and back pain and is found to have with non-visualization of the gallbladder on HIDA scan. 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 Blood cultures are growing MRSA. Patient also found to have osteomyelitis treated with IV vancomycin presents with a decrease input from her colostomy and she subsequently missed hemodialysis. She had a CT which show worsening of L3-L4 osteomyelitis hence the admission. ED physician has spoke with neurosurgeon at [facility] per my request=>no acute surgical need at this time he (Dr. Woodard) recommended outpatient biopsy. Nephrology has also been called as well as orthopedic surgery. Patient is a very poor historian gives no history. Patient states, "I am so confused". I did discuss with infectious disease physician today they agreed that daptomycin is a better choice for this patient and if if vancomycin is to be used should be used in conjunction with rifampin for penetrance. I does frequent pharmacy patient was started on daptomycin. She remains fever free and Discharged in a.m. if stable. She will need close follow -up with orthopedic surgeon and neurosurgery outpatient. * Vertebral osteomyelitis L3-L4 Worsening with diskitis * Back pain- ?Secondary to above * Hyertenensive urgency * Metabolic encephalopathy- Improved to baseline * Dementia * ESRD * Abdominal pain? Due to low colostomy output - constipation * Anemia of ESRD- had been on vancomycin outpatient and was being given at the HD center last dose 01/03/17 prior to admission- * Recent MRSA bacterimia Plan: * Continue supportive care * D/W ID, will start on daptomycin. * check esr and crp * Monitor electrolytes * Epogen when needed per Nephrology * d/w pharmacy, will need ID approval for continuation. if unable may switch back to vancomycin and rifampin for better penetrance. * PPD placed, follow result * Monitor cutltures * await Ortho input * fall precautions * DVT/GI prophy * D/W daughter. History Interval history: Patient seen and examined still with complain of low back pain. Denies any chest pain. Denies any abdominal pain. good output via colostomy. no other adverse events reported by nursing. Hospitalist Physical - Physical exam Narrative exam: VITAL SIGNS: Reviewed. GENERAL: The patient appeared well nourished and normally developed. Vital signs as documented. HEAD: No signs of head trauma. EYES: Pupils are equal. Extraocular motions intact. EARS: Hearing grossly intact. MOUTH: Oropharynx is normal. NECK: No adenopathy, no JVD. CHEST: Chest with clear breath sounds bilaterally. No wheezes, rales, or rhonchi. CARDIAC: Regular rate and rhythm. S1 and S2, without murmurs, gallops, or rubs. VASCULAR: No Edema. Peripheral pulses normal and equal in all extremities. ABDOMEN: Colostomy intact with good output Soft, without detectable tenderness. No sign of distention. No rebound or guarding, and no masses palpated. Bowel Sounds normal. MUSCULOSKELETAL: Paraspinous tenderness around the lumbar sacral region. Good range of motion of all major joints. Extremities without clubbing, cyanosis or edema. NEUROLOGIC EXAM: Alert and oriented x 2. At baseline dementia. No focal sensory or strength deficits. Speech normal. Follows commands. Gait is not assessed PSYCHIATRIC: Mood normal. SKIN: Colostomy site clean and dry - Constitutional Vitals: Temp Pulse Resp BP Pulse Ox 98.4 F 82 16 140/74 100 01/07/17 07:55 01/07/17 07:55 01/07/17 07:55 01/07/17 07:55 01/07/17 07:55 Results - Labs CBC & Chem 7: 01/07/17 04:54 01/07/17 04:54 Labs: Laboratory Last Values WBC 5.7 K/mm3 (4.5-11.0) 01/07/17 04:54 RBC 3.95 M/mm3 (3.65-5.03) 01/07/17 04:54 Hgb 10.7 gm/dl (10.1-14.3) 01/07/17 04:54 Hct 34.5 % (30.3-42.9) 01/07/17 04:54 MCV 87 fl (79-97) 01/07/17 04:54 MCH 27 pg (28-32) L 01/07/17 04:54 MCHC 31 % (30-34) 01/07/17 04:54 RDW 17.0 % (13.2-15.2) H 01/07/17 04:54 Plt Count 346 K/mm3 (140-440) 01/07/17 04:54 Lymph % (Auto) 20.4 % (13.4-35.0) 01/05/17 16:57 [place] % (Auto) 6.7 % (0.0-7.3) 01/05/17 16:57 Eos % (Auto) 5.7 % (0.0-4.3) H 01/05/17 16:57 Baso % (Auto) 1.1 % (0.0-1.8) 01/05/17 16:57 Lymph # 1.3 K/mm3 (1.2-5.4) 01/05/17 16:57 [place] # 0.4 K/mm3 (0.0-0.8) 01/05/17 16:57 Eos # 0.4 K/mm3 (0.0-0.4) 01/05/17 16:57 Baso # 0.1 K/mm3 (0.0-0.1) 01/05/17 16:57 Seg Neutrophils % 66.1 % (40.0-70.0) 01/05/17 16:57 Seg Neutrophils # 4.1 K/mm3 (1.8-7.7) 01/05/17 16:57 Sodium 137 mmol/L (137-145) 01/07/17 04:54 Potassium 3.1 mmol/L (3.6-5.0) L 01/07/17 04:54 Chloride 95.1 mmol/L (98-107) L 01/07/17 04:54 Carbon Dioxide 26 mmol/L (22-30) 01/07/17 04:54 Anion Gap 19 mmol/L 01/07/17 04:54 BUN 17 mg/dL (7-17) 01/07/17 04:54 Creatinine 2.8 mg/dL (0.7-1.2) H 01/07/17 04:54 Estimated GFR 19 ml/min 01/07/17 04:54 BUN/Creatinine Ratio 6.07 % 01/07/17 04:54 Glucose 97 mg/dL (65-100) 01/07/17 04:54 POC Glucose 102 (70-105) 01/07/17 06:30 Calcium 8.8 mg/dL (8.4-10.2) 01/07/17 04:54 Total Bilirubin 0.3 mg/dL (0.1-1.2) 01/07/17 04:54 AST 24 units/L (5-40) 01/07/17 04:54 ALT 16 units/L (7-56) 01/07/17 04:54 Alkaline Phosphatase 106 units/L (35-129) 01/07/17 04:54 Total Protein 7.5 g/dL (6.3-8.2) 01/07/17 04:54 Albumin 3.0 g/dL (3.9-5) L 01/07/17 04:54 Albumin/Globulin Ratio 0.7 % 01/07/17 04:54 Lipase 78 units/L (13-60) H 01/05/17 16:57
--- NOTE | 2017-01-07 09:25 | Progress Note ---
Assessment and Plan 1. ESRD on HD since 2. Vertebral osteomyelitis L3-L4 worsening, She had MRSA bactremia in the last admission likely 2/2 permcath infection. Pt has been receiving vancomycin in the HD center. Her last negative blood culture was on 11/09 and she has been receiving vancomycin at HD center. Her last dose was on 01/03/17. 3. Accelerated HTN 4. Metabolic encephalopathy 5. Low colostomy out put, improved. 6. Anemia of ESRD Plan: HD arrangement made No Epogen 2/2 Hgb >11 Resumed oral BP medications Unclear if patient makes significant amount of urine but her CR is on the low end for ESRD especially considering her last HD being on Sunday. Will collect 24 hr urine to determine CR clearance and urine volume. ? some recovery. Started HD in October and before that baseline was CKD IV. Agree with ID consult. Her last negative blood culture was on 11/09. Vancomycin KENY on the last MRSA was at 1. And she has been receiving vancomycin at HD center with a goal of 6-8 weeks antibiotic coverage for vertebral osteo. Her last dose was on 01/03/17. Given worsening disckitis despite almost 8 weeks of vancomycin, will need to change antiotics and or consider other infecious ethiology for the cause of the worsening CT findings. Change antibiotics to Daptomycin. Blood culture repeated. Direct sample ? other infectious organisms. Place PPD. Obtain CxR F/u on ortho recommendations. Subjective Date of service: 01/07/17 Interval history: No new changes, awaiting for ID and ortho consults Objective - Vital Signs Vital signs: Vital Signs - 12hr 01/06/17 01/06/17 01/07/17 22:00 23:35 04:20 Temperature 98.5 F 98.1 F Pulse Rate 83 Pulse Rate [ 83 80 Right] Respiratory 18 18 Rate Blood Pressure 164/78 Blood Pressure 164/78 [Left Radial Artery] Blood Pressure 140/68 [Right Arm] O2 Sat by Pulse 100 100 Oximetry 01/07/17 07:55 Temperature 98.4 F Pulse Rate Pulse Rate [ 82 Right] Respiratory 16 Rate Blood Pressure Blood Pressure [Left Radial Artery] Blood Pressure 140/74 [Right Arm] O2 Sat by Pulse 100 Oximetry - General Appearance General appearance: well-developed, well-nourished, appears stated age EENT: PERRL, mucous membranes moist Neck: no JVD, no thyromegaly, no carotid bruit, supple Respiratory: Present: Clear to Ascultation Cardiology: regular, normal heart rate, S1S2, no murmurs Gastrointestinal: normoactive bowel sounds, no tenderness Integumentary: no rash, warm and dry Neurologic: other (AO x 2, normal speech) Musculoskeletal: no deformities, no erythema, no cyanosis, no clubbing Psychiatric: mood/affect appropriate, cooperative - Lab 01/07/17 04:54 01/07/17 04:54 Most recent lab results Calcium 8.8 mg/dL (8.4-10.2) 01/07/17 04:54
[2017-01-07] MEDS ORDERED: CUBICIN IV SCH (10:00)
[2017-01-07] MEDS ORDERED: NACL 0.9% IV SCH (10:00)
[2017-01-07] MEDS: COREG PO SCH ×2 (10:45→23:20)
[2017-01-07] MEDS: NORVASC PO SCH (10:47)
[2017-01-07] MEDS: HEPARIN SUB-Q SCH ×2 (10:47→23:20)
[2017-01-07] MEDS: ROCALTROL PO SCH (10:49)
[2017-01-07] MEDS: PEPCID PO SCH (10:49)
--- NOTE | 2017-01-07 16:43 | Consultation ---
History of Present Illness - HPI Consult date: 01/06/17 Consult reason: back pain History of present illness: 86 y/o female with history of disc space infection lumbar spine along other significant medical comorbities including diabetes,renal failure, etc...has been treated with IVAB x 6 wks with little improvement in bony destruction as measured on CT scan f/u...asked see regarding further recommendation... Past History Past Medical History: other (as hpi) Past Surgical History: cholecystectomy, bowel surgery Social history: full code. denies: smoking, alcohol abuse, prescription drug abuse, IV drug use Family history: no significant family history Medications and Allergies Allergies Allergy/AdvReac Type Severity Reaction Status Date / Time No Known Allergies Allergy Verified 03/18/15 10:53 Home Medications Medication Instructions Recorded Confirmed Last Taken Type Mirtazapine 7.5 mg PO QHS 09/28/16 10/30/16 09/28/16 History Albuterol Sulfate [Ventolin HFA] 2 puff IH Q4H PRN #1 pump 10/09/16 10/30/16 Unknown Rx Calcitriol [Rocaltrol] 0.25 mcg PO QDAY #30 capsule 10/09/16 10/30/16 Unknown Rx Famotidine [Pepcid] 20 mg PO BID #60 tablet 10/09/16 10/30/16 Unknown Rx amLODIPine [Norvasc] 10 mg PO DAILY #30 tablet 10/09/16 10/30/16 Unknown Rx Calcium Acetate [Phoslo] 667 mg PO TID 10/21/16 10/30/16 Unknown History Carvedilol [Coreg] 12.5 mg PO BID 10/21/16 10/30/16 Unknown History Enoxaparin [Lovenox] 30 mg SUB-Q QDAY syringe 11/20/16 Unknown Rx Pantoprazole [Protonix TAB] 20 mg PO QDAY tablet. 11/20/16 Unknown Rx Acetaminophen [Acetaminophen TAB] 650 mg PO Q4H PRN #30 tablet 11/23/16 Unknown Rx Bisacodyl [Dulcolax suppos] 10 mg [place] QDAY PRN #30 supp.rect 11/23/16 Unknown Rx Vancomycin HCl in Dextrose 5 % 750 mg IV 3XW #12 plast..bag 11/23/16 Unknown Rx [Vancomycin 750 mg/250 ml-D5w] Active Meds: Active Medications Acetaminophen (Tylenol) 650 mg PO Q4H PRN PRN Reason: Pain MILD(1-3)/Fever >100.5/LEBRON Last Admin: 01/06/17 15:54 Dose: 650 mg Albuterol (Proventil) 2.5 mg IH Q4HRT PRN PRN Reason: Shortness Of Breath Amlodipine Besylate (Norvasc) 10 mg PO DAILY [facility] Last Admin: 01/07/17 10:47 Dose: 10 mg Bisacodyl (Dulcolax) 10 mg [place] QDAY PRN PRN Reason: Constipation unrelieved by MOM Calcitriol (Rocaltrol) 0.25 mcg PO QDAY [facility] Last Admin: 01/07/17 10:49 Dose: 0.25 mcg Calcium Acetate (Phoslo) 667 mg PO TIDWM [facility] Last Admin: 01/07/17 10:40 Dose: 667 mg Carvedilol (Coreg) 12.5 mg PO BID [facility] Last Admin: 01/07/17 10:45 Dose: 12.5 mg Famotidine (Pepcid) 20 mg PO QAM [facility] Last Admin: 01/07/17 10:49 Dose: 20 mg Heparin Sodium (Porcine) (Heparin) 5,000 unit SUB-Q Q12HR [facility] Last Admin: 01/07/17 10:47 Dose: 5,000 unit Heparin Sodium (Porcine) (Heparin) 5,000 unit IV MERE PRN PRN Reason: hemodialysis Last Admin: 01/06/17 17:51 Dose: 5,000 unit Hydralazine HCl (Apresoline) 10 mg IV Q4H PRN PRN Reason: Blood Pressure Last Admin: 01/06/17 01:30 Dose: 10 mg Sodium Chloride (Nacl 0.9%) 100 mls @ 999 mls/hr IV EMRE PRN PRN Reason: Hypotension Daptomycin 400 mg/ Sodium (Chloride) 100 mls @ 200 mls/hr IV Q48HR YAMILETH PRN Reason: Protocol Last Admin: 01/07/17 10:50 Dose: 200 mls/hr Mirtazapine (Remeron) 7.5 mg PO QHS [facility] Last Admin: 01/06/17 22:00 Dose: 7.5 mg Pneumococcal Polyvalent Vaccine (Pneumovax 23) 0.5 ml IM .ONCE ONE Stop: 01/08/17 12:01 Assessment and Plan assesment - disc space infection lumbar spine, poor surgical candidate due to multiple comorbidities Plan- recommend continuing IVAB, and observation, will discussed situation with Dr Ramos and give further recommendations shortly
--- NOTE | 2017-01-07 18:42 | Consultation ---
History of Present Illness - Reason for Consult Consult date: 01/07/17 spine osteomyelitis Requesting physician: GITA SILVA - History of Present Illness Patient is an 86 y/o female with a plethora of severe comorbidities including HTN, type 2 DM, ESRD on maintenance HD, COPD, systolic heart failure (EF 45-50 percent), previous bowel perforation with colostomy (~ 7 years ago) who had been hospitalized at [facility] 10/21-10/24 with hypoglycemia. She had been hospitalized approximately 4 weeks earlier with worsening renal failure requiring initiation of HD (M-W-Fr) via a right chest wall PC (inserted 10/04/16) . She re- presents on 10/30 with abdominal and back pain and is found to have with non-visualization of the gallbladder on HIDA scan. 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 Blood cultures are growing MRSA. Patient also found to have osteomyelitis treated with IV vancomycin. Patient is a very poor historian gives no history. Patient states, "I am so confused". Infectious disease consulted for appropriate management of spine osteomyelitis/diskitis in a patient who has failed vancomycin treatment. I saw patient at bedside. She is unable to provide history. PHYSICAL EXAM. VS - Afebrile chest - good air entry cvs - s1s2 abd - bs+ back - no open wound. LABS - Reviewed. See lab section esr 48, crp 3.8. ct - worsening erosion of L3 - 4. ASSESSMENT 1. Lumbar spine osteomyelitis/diskitis 2. DM2 3. esrd ON hd 4. copd RECOMMENDATION 1. Cubicin 6mg/kg body weight every 48hourly. 2. Will need prolonged iv antibiotics about three months 3. ESR and CRP should be used to monitor. 4. Consider LTAC. Past History Past Medical History: other (as hpi) Past Surgical History: cholecystectomy, bowel surgery Social history: full code. denies: smoking, alcohol abuse, prescription drug abuse, IV drug use Family history: no significant family history Medications and Allergies Allergies Allergy/AdvReac Type Severity Reaction Status Date / Time No Known Allergies Allergy Verified 03/18/15 10:53 Home Medications Medication Instructions Recorded Confirmed Last Taken Type Mirtazapine 7.5 mg PO QHS 09/28/16 10/30/16 09/28/16 History Albuterol Sulfate [Ventolin HFA] 2 puff IH Q4H PRN #1 pump 10/09/16 10/30/16 Unknown Rx Calcitriol [Rocaltrol] 0.25 mcg PO QDAY #30 capsule 10/09/16 10/30/16 Unknown Rx Famotidine [Pepcid] 20 mg PO BID #60 tablet 10/09/16 10/30/16 Unknown Rx amLODIPine [Norvasc] 10 mg PO DAILY #30 tablet 10/09/16 10/30/16 Unknown Rx Calcium Acetate [Phoslo] 667 mg PO TID 10/21/16 10/30/16 Unknown History Carvedilol [Coreg] 12.5 mg PO BID 10/21/16 10/30/16 Unknown History Enoxaparin [Lovenox] 30 mg SUB-Q QDAY syringe 11/20/16 Unknown Rx Pantoprazole [Protonix TAB] 20 mg PO QDAY tablet. 11/20/16 Unknown Rx Acetaminophen [Acetaminophen TAB] 650 mg PO Q4H PRN #30 tablet 11/23/16 Unknown Rx Bisacodyl [Dulcolax suppos] 10 mg [place] QDAY PRN #30 supp.rect 11/23/16 Unknown Rx Vancomycin HCl in Dextrose 5 % 750 mg IV 3XW #12 plast..bag 11/23/16 Unknown Rx [Vancomycin 750 mg/250 ml-D5w] Active Meds: Active Medications Acetaminophen (Tylenol) 650 mg PO Q4H PRN PRN Reason: Pain MILD(1-3)/Fever >100.5/LEBRON Last Admin: 01/06/17 15:54 Dose: 650 mg Albuterol (Proventil) 2.5 mg IH Q4HRT PRN PRN Reason: Shortness Of Breath Amlodipine Besylate (Norvasc) [address] [facility] Last Admin: 01/07/17 10:47 Dose: 10 mg Bisacodyl (Dulcolax) 10 mg [place] QDAY PRN PRN Reason: Constipation unrelieved by MOM Calcitriol (Rocaltrol) 0.[address] [facility] Last Admin: 01/07/17 10:49 Dose: 0.25 mcg Calcium Acetate (Phoslo) [address] [facility] Last Admin: 01/07/17 10:40 Dose: 667 mg Carvedilol (Coreg) 12.[address] [facility] Last Admin: 01/07/17 10:45 Dose: 12.5 mg Famotidine (Pepcid) [address] [facility] Last Admin: 01/07/17 10:49 Dose: 20 mg Heparin Sodium (Porcine) (Heparin) 5,000 unit SUB-Q Q12HR [facility] Last Admin: 01/07/17 10:47 Dose: 5,000 unit Heparin Sodium (Porcine) (Heparin) 5,000 unit IV MERE PRN PRN Reason: hemodialysis Last Admin: 01/06/17 17:51 Dose: 5,000 unit Hydralazine HCl (Apresoline) 10 mg IV Q4H PRN PRN Reason: Blood Pressure Last Admin: 01/06/17 01:30 Dose: 10 mg Sodium Chloride (Nacl 0.9%) 100 mls @ 999 mls/hr IV MERE PRN PRN Reason: Hypotension Daptomycin 400 mg/ Sodium (Chloride) 100 mls @ 200 mls/hr IV Q48HR YAMILETH PRN Reason: Protocol Last Admin: 01/07/17 10:50 Dose: 200 mls/hr Mirtazapine (Remeron) 7.[address] [facility] Last Admin: 01/06/17 22:00 Dose: 7.5 mg Pneumococcal Polyvalent Vaccine (Pneumovax 23) 0.5 ml IM .ONCE ONE Stop: 01/08/17 12:01 Physical Examination - Constitutional Vitals: Vital Signs Temp Pulse Resp BP Pulse Ox 98.6 F 86 20 167/75 100 01/07/17 16:50 01/07/17 16:50 01/07/17 16:50 01/07/17 16:50 01/07/17 16:50 Temperature -Last 24 Hours Temperature 98.6 F Temperature 98.4 F Temperature 98.1 F Temperature 98.5 F Results - Labs CBC & Chem 7: 01/07/17 04:54 01/07/17 04:54 Labs: Abnormal lab results 01/07/17 01/07/17 01/07/17 Range/Units 04:54 04:54 10:36 MCH 27 L (28-32) pg RDW 17.0 H (13.2-15.2) % Potassium 3.1 L (3.6-5.0) mmol/L Chloride 95.1 L (98-107) mmol/L Creatinine 2.8 H (0.7-1.2) mg/dL C-Reactive Protein 3.80 H (0.00-1.30) mg/dL Albumin 3.0 L (3.9-5) g/dL
[2017-01-07] MEDS: REMERON PO SCH (23:20)
[2017-01-08 05:39] LABS: Hematocrit 33.5 % (30.3-42.9); Hemoglobin 10.3 gm/dl (10.1-14.3); Mean Corpuscular HGB Conc 31 % (30-34); Mean Corpuscular Hemoglobin 27 pg (28-32); Mean Corpuscular Volume 87 fl (79-97); Platelet Count 373 K/mm3 (140-440); Red Blood Count 3.85 M/mm3 (3.65-5.03); White Blood Count 5.7 K/mm3 (4.5-11.0)
[2017-01-08 06:17] LABS: BUN/Creatinine Ratio 6.28; Calcium 9.2 mg/dL (8.4-10.2); Chloride 100.2 mmol/L (98-107); Potassium 3.4 mmol/L (3.6-5.0)
[2017-01-08] MEDS: COREG PO SCH ×2 (09:34→22:40)
[2017-01-08] MEDS: PHOSLO PO SCH ×3 (09:34→17:25)
[2017-01-08] MEDS: HEPARIN SUB-Q SCH ×2 (09:35→22:40)
[2017-01-08] MEDS: NORVASC PO SCH (09:36)
[2017-01-08] MEDS: PEPCID PO SCH (09:36)
[2017-01-08] MEDS: ROCALTROL PO SCH (09:37)
--- NOTE | 2017-01-08 09:54 | Progress Note ---
Assessment and Plan 1. ESRD on HD since 2. Vertebral osteomyelitis L3-L4 worsening, She had MRSA bactremia in the last admission likely 2/2 permcath infection. Pt has been receiving vancomycin in the HD center. Her last negative blood culture was on 11/09 and she has been receiving vancomycin at HD center. Her last dose was on 01/03/17. 3. Accelerated HTN 4. Metabolic encephalopathy 5. Low colostomy out put, improved. 6. Anemia of ESRD Plan: HD MWF schedule No Epogen 2/2 Hgb >11 Resumed oral BP medications F/u on 24 hr urine CR CL, collection to be completed at around 2 pm today Continue daptomycin. Will check if this antibiotics is available at out patient dialysis clinics. If it is not available, may need to go to an LTAC for prolonged antibiotic therapy. F/u on PPD Subjective Date of service: 01/08/17 Interval history: No fever, ID/ortho consults noted. Objective - Vital Signs Vital signs: Vital Signs - 12hr 01/07/17 01/07/17 01/08/17 22:00 23:20 00:35 Temperature 99.6 F Pulse Rate 75 Pulse Rate [ 93 H 93 H Right] Respiratory 18 18 Rate Blood Pressure 158/75 Blood Pressure 153/73 [Right Arm] O2 Sat by Pulse 100 Oximetry 01/08/17 01/08/17 04:25 07:03 Temperature 98.0 F 98.3 F Pulse Rate Pulse Rate [ 82 86 Right] Respiratory 18 16 Rate Blood Pressure Blood Pressure 174/79 143/80 [Right Arm] O2 Sat by Pulse 100 96 Oximetry - General Appearance General appearance: well-developed, well-nourished, appears stated age EENT: PERRL, mucous membranes moist Neck: no JVD, no thyromegaly, no carotid bruit, supple Respiratory: Present: Clear to Ascultation Cardiology: regular, normal heart rate, S1S2, no murmurs Gastrointestinal: normoactive bowel sounds, no tenderness Integumentary: no rash, warm and dry Neurologic: no focal deficit, alert and oriented x3, CN 3-12 intact Musculoskeletal: no deformities, no erythema, no cyanosis, no clubbing Psychiatric: mood/affect appropriate, cooperative - Lab 01/08/17 04:37 01/08/17 04:37 Most recent lab results Calcium 9.2 mg/dL (8.4-10.2) 01/08/17 04:37
--- NOTE | 2017-01-08 11:01 | Discharge Summary ---
Providers - Providers Date of Admission: 01/06/17 00:07 Date of discharge: 01/09/17 Attending physician: NAYELY MACDONALD 01/06/17 00:09 Consult to Physician [CONS] Routine Consulting Provider: AVIS MORLEY Reason For Exam: ESRD Place consult to:: Dr. Morley Notified:: Answering Service Phone number called:: [phone] Was contact made?: Yes If yes, spoke with:: Dr. Morley Time called:: 22:37 Comment:: Dr. Hines (er drDella) spoke with Dr. Morley Consult to Physician [CONS] Routine Consulting Provider: NISA MCCRAY Reason For Exam: vertebral osteomyelitis Place consult to:: Mahendra BHANDARI Notified:: Answering Service Phone number called:: [phone] Was contact made?: Yes If yes, spoke with:: Dr. Mccray Time called:: 22:47 Comment:: Dr. Hines (er drDella) spoke to Dr. Mccray 01/06/17 00:10 Consult to Physician [CONS] Routine Consulting Provider: NATASHA COLIN Reason For Exam: spinal osteomyelitis, h/o mrsa Place consult to:: Shobha BHANDARI Notified:: answering service Phone number called:: Was contact made?: Yes If yes, spoke with:: susannah Time called:: 09:03 01/06/17 00:13 Consult to Wound/ET Nurse [CONS] Routine Reason For Exam: ostomy care Primary care physician: HARD CANDY SPINNER Hospitalization Condition: Stable Hospital course: Patient is a 86-year-old woman from [facility] with a history of end-stage renal disease on HD, type 2 diabetes mellitus, systolic heart for EF 45%, hypertension, colostomy and treated vertebral osteomyelitis who presents with a decrease input from her colostomy and she subsequently missed hemodialysis. She had a CT which show worsening of L3-L4 osteomyelitis hence the admission. ED physician has spoke with neurosurgeon at [place] per my request=>no acute surgical need at this time he (Dr. Woodard) recommended outpatient biopsy. Nephrology has also been called as well as orthopedic surgery. -Vertebral osteomyelitis L3-L4 acute on chronic worsening: Vancomycin changed to daptomycin by Infectious Disease -Acute metabolic encephalopathy due to the above -End-stage renal disease: Consult nephrology for hemodialysis -Accelerated hypertension: IV hydralazine restart home medications should improve with dialysis -Colostomy problems with h/o low output, which has stool in it: consulted wound care. -DVT prophylaxis: subcutaneous heparin Hemodialysis center should have daptomycin on . So, she can get a dose of daptomycin this Sunday, here and d/c back to [facility] SN[facility]. Infectious disease recommend LTACH but i dont know if she will quality, consult Case management to evaluation. I was called by Dr. Morley that the dialysis center has received the Daptomycin and patient can be discharged. Disposition: DC/TX SNF W [facility] CERT Time spent for discharge: 35 minutes Core Measure Documentation - Palliative Care Palliative Care/ Comfort Measures: Not Applicable - Core Measures Any of the following diagnoses?: none - VTE Discharge Requirements Deep Vein Thrombosis/Pulmonary Embolism Present on Admission: No Has pt received <5 days of overlap therapy or INR<2.0: No Anticoagulant overlap therapy prescribed at discharge: No Contraindication No Overlap Therapy order at DC: Not Indicated Exam - Physical Exam Narrative exam: GEN: Chronically debilitated thin frail woman wake alert oriented 1 HEENT: NCAT, PERRL, EOMI, OP CLEAR NECK: SUPPLE, NO THYROMEGALY, NO JVD, NO LAD CVS: RRR, NORMAL S1S2 LUNGS/CHEST: CTA B, NORMAL CHEST EXPANSION B, GOOD AIR ENTRY B ABD: SOFT COLOSTOMY WITH BOWEL MOVEMENT, GBS, NO REBOUND OR GUARDING EXT/SKIN: NO SIGNIFICANT EDEMA OR RASH, poor skin turgor MSK: FROM X 4 EXTREMITIES NEURO: CN 2-12 GROSSLY INTACT, NO new FOCAL DEFICITS PSY: CALM - Constitutional Vitals: Temp Pulse Resp BP Pulse Ox 98.3 F 86 16 143/80 96 01/08/17 07:03 01/08/17 07:03 01/08/17 07:03 01/08/17 07:03 01/08/17 07:03 Plan Activity: up only with assistance, fall precautions Diet: renal Additional Instructions: Daptomycin to be given at hemodialysis under the care of Infrastructure Consultant Follow up with: PRIMARY CARE, [Primary Care Provider] - 3-5 Days Prescriptions: Famotidine [Pepcid] 20 mg PO QAM #30 tablet DAPTOmycin [Cubicin] 400 mg IV Q48HR #1 vial
--- NOTE | 2017-01-08 11:10 | Progress Note ---
Assessment and Plan Assessment and plan: Patient 86-year-old woman history end-stage renal disease, type 2 diabetes mellitus, systolic heart for EF 45%, hypertension, colostomy and treated vertebral osteomyelitis who presents with a decrease input from her colostomy and she subsequently missed hemodialysis. She had a CT which show worsening of L3-L4 osteomyelitis hence the admission. ED physician has spoke with neurosurgeon at [facility] per my request=>no acute surgical need at this time he ( Dr. Woodard) recommended outpatient biopsy. Nephrology has also been called as well as orthopedic surgery. -Vertebral osteomyelitis L3-L4 acute on chronic worsening: Treat with IV antibiotics, consulted infectious disease and orthopedic surgery, give gentle hydration she appears to be dehydrated, she has history of CHF and end-stage renal disease we'll be careful. -Acute metabolic encephalopathy due to the above -End-stage renal disease: Consult nephrology for hemodialysis -Accelerated hypertension: IV hydralazine restart home medications should improve with dialysis -Colostomy problems with h/o low output, which has stool in it: consulted wound care. -DVT prophylaxis: subcutaneous heparin Disposition: Awaiting set up daptomycin with hemodialysis History Interval history: Patient seen and examined. Follow up on altered mental status which is improved. Overnight uneventful. No cp, sob, n/v or severe headaches. Imaging, old records, testing, labs, nursing notes reviewed. Plan discussed with patient. Hospitalist Physical - Physical exam Narrative exam: GEN: Chronically debilitated thin frail woman wake alert oriented 2 HEENT: NCAT, PERRL, EOMI, OP CLEAR NECK: SUPPLE, NO THYROMEGALY, NO JVD, NO LAD CVS: RRR, NORMAL S1S2 LUNGS/CHEST: CTA B, NORMAL CHEST EXPANSION B, GOOD AIR ENTRY B ABD: SOFT COLOSTOMY WITH BOWEL MOVEMENT, GBS, NO REBOUND OR GUARDING EXT/SKIN: NO SIGNIFICANT EDEMA OR RASH, poor skin turgor MSK: FROM X 4 EXTREMITIES NEURO: CN 2-12 GROSSLY INTACT, NO new FOCAL DEFICITS PSY: CALM - Constitutional Vitals: Temp Pulse Resp BP Pulse Ox 98.3 F 86 16 143/80 96 01/08/17 07:03 01/08/17 07:03 01/08/17 07:03 01/08/17 07:03 01/08/17 07:03 Results - Labs CBC & Chem 7: 01/08/17 04:37 01/08/17 04:37 Labs: Laboratory Last Values WBC 5.7 K/mm3 (4.5-11.0) 01/08/17 04:37 RBC 3.85 M/mm3 (3.65-5.03) 01/08/17 04:37 Hgb 10.3 gm/dl (10.1-14.3) 01/08/17 04:37 Hct 33.5 % (30.3-42.9) 01/08/17 04:37 MCV 87 fl (79-97) 01/08/17 04:37 MCH 27 pg (28-32) L 01/08/17 04:37 MCHC 31 % (30-34) 01/08/17 04:37 RDW 17.0 % (13.2-15.2) H 01/08/17 04:37 Plt Count 373 K/mm3 (140-440) 01/08/17 04:37 Lymph % (Auto) 20.4 % (13.4-35.0) 01/05/17 16:57 Brown % (Auto) 6.7 % (0.0-7.3) 01/05/17 16:57 Eos % (Auto) 5.7 % (0.0-4.3) H 01/05/17 16:57 Baso % (Auto) 1.1 % (0.0-1.8) 01/05/17 16:57 Lymph # 1.3 K/mm3 (1.2-5.4) 01/05/17 16:57 Brown # 0.4 K/mm3 (0.0-0.8) 01/05/17 16:57 Eos # 0.4 K/mm3 (0.0-0.4) 01/05/17 16:57 Baso # 0.1 K/mm3 (0.0-0.1) 01/05/17 16:57 Seg Neutrophils % 66.1 % (40.0-70.0) 01/05/17 16:57 Seg Neutrophils # 4.1 K/mm3 (1.8-7.7) 01/05/17 16:57 ESR 48 mm/Hr (0-20) 01/07/17 10:36 Sodium 142 mmol/L (137-145) 01/08/17 04:37 Potassium 3.4 mmol/L (3.6-5.0) L 01/08/17 04:37 Chloride 100.2 mmol/L (98-107) 01/08/17 04:37 Carbon Dioxide 25 mmol/L (22-30) 01/08/17 04:37 Anion Gap 20 mmol/L 01/08/17 04:37 BUN 22 mg/dL (7-17) H 01/08/17 04:37 Creatinine 3.5 mg/dL (0.7-1.2) H 01/08/17 04:37 Estimated GFR 15 ml/min 01/08/17 04:37 BUN/Creatinine Ratio 6.28 % 01/08/17 04:37 Glucose 87 mg/dL (65-100) 01/08/17 04:37 POC Glucose 102 (70-105) 01/07/17 06:30 Calcium 9.2 mg/dL (8.4-10.2) 01/08/17 04:37 Total Bilirubin 0.3 mg/dL (0.1-1.2) 01/07/17 04:54 AST 24 units/L (5-40) 01/07/17 04:54 ALT 16 units/L (7-56) 01/07/17 04:54 Alkaline Phosphatase 106 units/L (35-129) 01/07/17 04:54 C-Reactive Protein 3.80 mg/dL (0.00-1.30) H 01/07/17 10:36 Total Protein 7.5 g/dL (6.3-8.2) 01/07/17 04:54 Albumin 3.0 g/dL (3.9-5) L 01/07/17 04:54 Albumin/Globulin Ratio 0.7 % 01/07/17 04:54 Lipase 78 units/L (13-60) H 01/05/17 16:57
[2017-01-08] MEDS ORDERED: PNEUMOVAX 23 IM ONE (12:00)
[2017-01-08] MEDS ORDERED: NACL 0.9% 100 ML IV PRN (14:12)
[2017-01-08] MEDS ORDERED: NACL 0.9% IV ONE (15:00)
[2017-01-08] MEDS ORDERED: CUBICIN IV ONE (15:00)
[2017-01-08] MEDS ORDERED: NACL 0.9% IV SCH (16:00)
[2017-01-08] MEDS ORDERED: CUBICIN IV SCH (16:00)
[2017-01-08] MEDS: HEPARIN IV PRN (18:18)
--- NOTE | 2017-01-08 18:36 | Progress Note ---
Subjective Date of service: 01/08/17 Principal diagnosis: spine osteomyelitis Interval history: No new issues PHYSICAL EXAM. VS - Afebrile chest - good air entry cvs - s1s2 abd - bs+ back - no open wound. LABS - Reviewed. See lab section esr 48, crp 3.8. ct - worsening erosion of L3 - 4. ASSESSMENT 1. Lumbar spine osteomyelitis/diskitis 2. DM2 3. esrd ON hd 4. copd RECOMMENDATION 1. Cubicin 6mg/kg body weight every 48hourly. 2. Will need prolonged iv antibiotics about three months 3. LTAC is recommended based on the fact that patient has failed outpatient therapy and infection is in a very vital part of her body. Objective - Constitutional Vitals: Vital Signs Temp Pulse Resp BP Pulse Ox 98.5 F 84 18 130/68 96 01/08/17 17:00 01/08/17 17:30 01/08/17 17:00 01/08/17 17:30 01/08/17 07:03 Temperature -Last 24 Hours Temperature 98.5 F Temperature 98.3 F Temperature 98.3 F Temperature 98.0 F Temperature 99.6 F Temperature 98.6 F - Labs CBC & Chem 7: 01/08/17 04:37 01/08/17 04:37 Labs: Abnormal lab results 01/07/17 01/08/17 01/08/17 Range/Units 13:15 04:37 04:37 MCH 27 L (28-32) pg RDW 17.0 H (13.2-15.2) % Potassium 3.4 L (3.6-5.0) mmol/L BUN 22 H (7-17) mg/dL Creatinine 3.5 H (0.7-1.2) mg/dL Urine Creatinine 56.2 H (0.1-20.0) mg/dL
[2017-01-08] MEDS: REMERON PO SCH (22:40)
[2017-01-09 08:10] VITALS: BP 150/84
[2017-01-09] MEDS: PHOSLO PO SCH ×2 (08:30→16:40)
--- NOTE | 2017-01-09 08:50 | Progress Note ---
Assessment and Plan Assessment and plan: Patient 86-year-old woman history end-stage renal disease, type 2 diabetes mellitus, systolic heart for EF 45%, hypertension, colostomy and treated vertebral osteomyelitis who presents with a decrease input from her colostomy and she subsequently missed hemodialysis. She had a CT which show worsening of L3-L4 osteomyelitis hence the admission. ED physician has spoke with neurosurgeon at [facility] per my request=>no acute surgical need at this time he ( Dr. Woodard) recommended outpatient biopsy. Nephrology has also been called as well as orthopedic surgery. -Vertebral osteomyelitis L3-L4 acute on chronic worsening: Treat with IV antibiotics, consulted infectious disease and orthopedic surgery, give gentle hydration she appears to be dehydrated, she has history of CHF and end-stage renal disease we'll be careful. -Acute metabolic encephalopathy due to the above -End-stage renal disease: Consult nephrology for hemodialysis -Accelerated hypertension: IV hydralazine restart home medications should improve with dialysis -Colostomy problems with h/o low output, which has stool in it: consulted wound care. -DVT prophylaxis: subcutaneous heparin Disposition: Awaiting set up daptomycin with hemodialysis Hemodialysis center should have daptomycin on . So, she can get a dose of daptomycin this Sunday, here and d/c back to [facility]F. Infectious disease recommend LTACH but i dont know if she will quality, consult Case management to evaluation. History Interval history: Patient seen and examined. Follow up on altered mental status which is improved. Overnight uneventful. No cp, sob, n/v or severe headaches. Imaging, old records, testing, labs, nursing notes reviewed. Plan discussed with patient. Hospitalist Physical - Physical exam Narrative exam: GEN: Chronically debilitated thin frail woman wake alert oriented 2 HEENT: NCAT, PERRL, EOMI, OP CLEAR NECK: SUPPLE, NO THYROMEGALY, NO JVD, NO LAD CVS: RRR, NORMAL S1S2 LUNGS/CHEST: CTA B, NORMAL CHEST EXPANSION B, GOOD AIR ENTRY B ABD: SOFT COLOSTOMY WITH BOWEL MOVEMENT, GBS, NO REBOUND OR GUARDING EXT/SKIN: NO SIGNIFICANT EDEMA OR RASH, poor skin turgor MSK: FROM X 4 EXTREMITIES NEURO: CN 2-12 GROSSLY INTACT, NO new FOCAL DEFICITS PSY: CALM - Constitutional Vitals: Temp Pulse Resp BP Pulse Ox 98.4 F 90 20 150/84 99 01/09/17 08:00 01/09/17 08:00 01/09/17 08:00 01/09/17 08:00 01/09/17 08:00 Results - Labs CBC & Chem 7: 01/08/17 04:37 01/08/17 04:37 Labs: Laboratory Last Values WBC 5.7 K/mm3 (4.5-11.0) 01/08/17 04:37 RBC 3.85 M/mm3 (3.65-5.03) 01/08/17 04:37 Hgb 10.3 gm/dl (10.1-14.3) 01/08/17 04:37 Hct 33.5 % (30.3-42.9) 01/08/17 04:37 MCV 87 fl (79-97) 01/08/17 04:37 MCH 27 pg (28-32) L 01/08/17 04:37 MCHC 31 % (30-34) 01/08/17 04:37 RDW 17.0 % (13.2-15.2) H 01/08/17 04:37 Plt Count 373 K/mm3 (140-440) 01/08/17 04:37 Lymph % (Auto) 20.4 % (13.4-35.0) 01/05/17 16:57 [place] % (Auto) 6.7 % (0.0-7.3) 01/05/17 16:57 Eos % (Auto) 5.7 % (0.0-4.3) H 01/05/17 16:57 Baso % (Auto) 1.1 % (0.0-1.8) 01/05/17 16:57 Lymph # 1.3 K/mm3 (1.2-5.4) 01/05/17 16:57 [place] # 0.4 K/mm3 (0.0-0.8) 01/05/17 16:57 Eos # 0.4 K/mm3 (0.0-0.4) 01/05/17 16:57 Baso # 0.1 K/mm3 (0.0-0.1) 01/05/17 16:57 Seg Neutrophils % 66.1 % (40.0-70.0) 01/05/17 16:57 Seg Neutrophils # 4.1 K/mm3 (1.8-7.7) 01/05/17 16:57 ESR 48 mm/Hr (0-20) 01/07/17 10:36 Sodium 142 mmol/L (137-145) 01/08/17 04:37 Potassium 3.4 mmol/L (3.6-5.0) L 01/08/17 04:37 Chloride 100.2 mmol/L (98-107) 01/08/17 04:37 Carbon Dioxide 25 mmol/L (22-30) 01/08/17 04:37 Anion Gap 20 mmol/L 01/08/17 04:37 BUN 22 mg/dL (7-17) H 01/08/17 04:37 Creatinine 3.5 mg/dL (0.7-1.2) H 01/08/17 04:37 Estimated GFR 15 ml/min 01/08/17 04:37 BUN/Creatinine Ratio 6.28 % 01/08/17 04:37 Glucose 87 mg/dL (65-100) 01/08/17 04:37 POC Glucose 102 (70-105) 01/07/17 06:30 Calcium 9.2 mg/dL (8.4-10.2) 01/08/17 04:37 Total Bilirubin 0.3 mg/dL (0.1-1.2) 01/07/17 04:54 AST 24 units/L (5-40) 01/07/17 04:54 ALT 16 units/L (7-56) 01/07/17 04:54 Alkaline Phosphatase 106 units/L (35-129) 01/07/17 04:54 Total Creatine Kinase 17 units/L (30-135) L 01/09/17 04:55 C-Reactive Protein 3.80 mg/dL (0.00-1.30) H 01/07/17 10:36 Total Protein 7.5 g/dL (6.3-8.2) 01/07/17 04:54 Albumin 3.0 g/dL (3.9-5) L 01/07/17 04:54 Albumin/Globulin Ratio 0.7 % 01/07/17 04:54 Lipase 78 units/L (13-60) H 01/05/17 16:57 Urine Total Volume 700 01/07/17 13:15 Urine Creatinine 56.2 mg/dL (0.1-20.0) H 01/07/17 13:15 Height (in) 65.0 inches 01/07/17 13:15 Weight (lb) 139.0 lbs 01/07/17 13:15 Creatinine Clearance 9 01/07/17 13:15
[2017-01-09] MEDS: NORVASC PO SCH (10:53)
[2017-01-09] MEDS: COREG PO SCH (10:56)
[2017-01-09] MEDS: HEPARIN SUB-Q SCH (10:56)
[2017-01-09] MEDS: PEPCID PO SCH (10:56)
[2017-01-09] MEDS: ROCALTROL PO SCH (10:57)
--- NOTE | 2017-01-09 13:26 | Progress Note ---
Assessment and Plan 1. ESRD on HD since 2. Vertebral osteomyelitis L3-L4 worsening, She had MRSA bactremia in the last admission likely 2/2 permcath infection. Pt has been receiving vancomycin in the HD center. Her last negative blood culture was on 11/09 and she has been receiving vancomycin at HD center. Her last dose was on 01/03/17. 3. Accelerated HTN 4. Metabolic encephalopathy 5. Low colostomy out put, improved. 6. Anemia of ESRD Plan: HD MWF schedule No Epogen 2/2 Hgb >11 Received a call from HD center, They were able to get daptomycin for Sunday. So from renal perspective she can continue antibiotics on dialysis Discussed with Dr Stoll Subjective Date of service: 01/09/17 Principal diagnosis: spine osteomyelitis Interval history: No fever, chills Objective - Vital Signs Vital signs: Vital Signs - 12hr 01/09/17 01/09/17 08:00 10:53 Temperature 98.4 F Pulse Rate 90 Pulse Rate [ 90 Right] Respiratory 20 Rate Blood Pressure 150/84 Blood Pressure 150/84 [Right Arm] O2 Sat by Pulse 99 Oximetry - General Appearance General appearance: well-developed, well-nourished, appears stated age EENT: PERRL, mucous membranes moist Neck: no JVD, no thyromegaly, no carotid bruit, supple Respiratory: Present: Clear to Ascultation. Absent: Wheezes Cardiology: regular, normal heart rate, S1S2, no murmurs Gastrointestinal: normoactive bowel sounds, no tenderness Integumentary: no rash, warm and dry Neurologic: no focal deficit, alert and oriented x3, reflexes 2+ and symmetric, gait normal, strength 5/5 Musculoskeletal: no deformities, no erythema, no cyanosis, no clubbing Psychiatric: mood/affect appropriate, cooperative - Lab 01/08/17 04:37 01/08/17 04:37 Most recent lab results Calcium 9.2 mg/dL (8.4-10.2) 01/08/17 04:37 Urine Creatinine 56.2 mg/dL (0.1-20.0) H 01/07/17 13:15
--- NOTE | 2017-01-09 16:42 | Progress Note ---
Subjective Date of service: 01/09/17 Principal diagnosis: spine osteomyelitis Interval history: No new issues PHYSICAL EXAM. VS - Afebrile chest - good air entry cvs - s1s2 abd - bs+ back - no open wound. LABS - Reviewed. See lab section esr 48, crp 3.8. ct - worsening erosion of L3 - 4. ASSESSMENT 1. Lumbar spine osteomyelitis/diskitis 2. DM2 3. esrd ON hd 4. copd RECOMMENDATION 1. Cubicin 6mg/kg body weight every 48hourly. 2. Will need prolonged iv antibiotics about three months 3. LTAC is recommended based on the fact that patient has failed outpatient therapy and infection is in a very vital part of her body. NOW PATIENT HAS BEEN DISCHARGED TO SNF. THE SNF MUST MAKE SURE PATIENT IS GETTING THE CUBICIN VERY 48HOURS. Objective - Constitutional Vitals: Vital Signs Temp Pulse Resp BP Pulse Ox 98.4 F 90 20 150/84 99 01/09/17 08:00 01/09/17 10:53 01/09/17 08:00 01/09/17 10:53 01/09/17 08:00 Temperature -Last 24 Hours Temperature 98.4 F Temperature 98.0 F Temperature 98.1 F Temperature 98.3 F Temperature 98.5 F - Labs CBC & Chem 7: 01/08/17 04:37 01/08/17 04:37 Labs: Abnormal lab results 01/09/17 Range/Units 04:55 Total Creatine Kinase 17 L (30-135) units/L
== END 2017-01-09 16:05 | DRG 539 ==
LOC: ED 14:34 → EDBD 14:34 → 3A 01-06 00:07
PROVIDERS: ADMIT Internal Medicine; ATTEND Internal Medicine
PROC: 0WH833Z Insertion of Infusion Device into Chest Wall, Percutaneous Approach (ICD-10-PCS; principal; 2017-01-06)
DX: M46.26 Osteomyelitis of vertebra, lumbar region (principal); G93.41 Metabolic encephalopathy; N18.6 End stage renal disease; I50.20 Unspecified systolic (congestive) heart failure; I13.2 Hypertensive heart and chronic kidney disease with heart failure and with stage 5 chronic kidney disease, or end stage renal disease; J44.9 Chronic obstructive pulmonary disease, unspecified; M19.90 Unspecified osteoarthritis, unspecified site; Z87.891 Personal history of nicotine dependence; Z86.718 Personal history of other venous thrombosis and embolism; Z90.49 Acquired absence of other specified parts of digestive tract; Z93.3 Colostomy status; Z82.49 Family history of ischemic heart disease and other diseases of the circulatory system
CPT/HCPCS: 36415; 74022; 74176; 80048; 80053; 82550; 82565; 82570; 82575; 82962; 83690; 85025; 85027; 85652; 86140; 87040; 90732; 96374; J0360; J0878; J1644; J3370; J7030

== ENCOUNTER 2017-03-06 11:34 | Day surgery (SDC) | payer MEDICARE ==
[~2017-03-06 11:34] MED LIST: ANCEF/STERILE WATER 2 GM/20 ML 2 GM/20 ML SYRINGE IV NR; NACL 0.9% 1000 ML 1,000 ML IV SCH
[2017-03-06] MEDS ORDERED: DIPRIVAN 10 MG/ML IV ONE (12:57)
[2017-03-06] MEDS ORDERED: SUBLIMAZE ONE (12:57)
[2017-03-06 13:07] LABS: INR 1.09 (0.87-1.13)
[2017-03-06] MEDS ORDERED: DILAUDID IV PRN (13:10)
[2017-03-06] MEDS ORDERED: ZOFRAN IV PRN (13:10)
[2017-03-06] MEDS ORDERED: PEPCID IV NR (13:10)
[2017-03-06 13:11] LABS: Basophils % (Auto) 1.2 % (0.0-1.8); Eosinophils % (Auto) 3.3 % (0.0-4.3); Hematocrit 40.9 % (30.3-42.9); Hemoglobin 12.9 gm/dl (10.1-14.3); Mean Corpuscular HGB Conc 32 % (30-34); Mean Corpuscular Hemoglobin 28 pg (28-32); Mean Corpuscular Volume 88 fl (79-97); Platelet Count 253 K/mm3 (140-440); Red Blood Count 4.67 M/mm3 (3.65-5.03); Red Cell Distribution Width 17.3 % (13.2-15.2); White Blood Count 7.5 K/mm3 (4.5-11.0)
--- NOTE | 2017-03-06 13:13 | Anesthesia Consultation ---
Anesthesia Consult and Med Hx Date of service: 03/06/17 - Airway Anesthetic Teeth Evaluation: Good, Dentures (upper) ROM Head & Neck: Adequate Mental/Hyoid Distance: Adequate Mallampati Class: Class II Intubation Access Assessment: Probably Good - Pulmonary Exam CTA: Yes - Cardiac Exam Cardiac Exam: RRR - Pre-Operative Health Status ASA Pre-Surgery Classification: ASA4 Proposed Anesthetic Plan: General, MAC - Pulmonary Hx Smoking: Yes (QUIT IN 2010) COPD: Yes Hx Sleep Apnea: No - Cardiovascular System Hx Hypertension: Yes Hx Heart Attack/AMI: Yes (CARDIAC ARREST IN 2010 DURING PERFORATED BOWEL SURGERY ) Hx Percutaneous Transluminal Coronary Angioplasty (PTCA): No Hx Cardia Arrhythmia: No - Central Nervous System Hx Seizures: No CVA: No - Endocrine Hx Renal Disease: Yes (HD YESTERDAY, RIGHT VASCATH) Hx End Stage Renal Disease: Yes Hx Insulin Dependent Diabetes: Yes Hx Thyroid Disease: No Hx Hypothyroidism: No - Hematic Hx Anemia: Yes - Other Systems Hx Cancer: No
--- NOTE | 2017-03-06 13:15 | Anesthesia Day of Surgery ---
Anesthesia Day of Surgery - Day of Surgery Patient Examined: Yes Patient H&P Reviewed: Yes Patient is NPO: Yes
[2017-03-06 13:17] LABS: BUN/Creatinine Ratio 7.8; Calcium 9.6 mg/dL (8.4-10.2); Potassium 4.5 mmol/L (3.6-5.0)
[2017-03-06] MEDS ORDERED: NACL 0.9% 500 ML 500 ML ONE (13:26)
[2017-03-06] MEDS ORDERED: PROTAMINE SULFATE ONE (13:26)
[2017-03-06] MEDS ORDERED: MARCAINE 0.5% 30 ML INFILTRATI ONE (13:26)
[2017-03-06] MEDS ORDERED: HEPARIN 10,000 UNITS/10 ML ONE (13:26)
[2017-03-06] MEDS ORDERED: RIFADIN ONE (13:37)
[2017-03-06] MEDS ORDERED: NACL P/F VIAL (10 ML) 10 ML ONE (13:37)
[2017-03-06] MEDS ORDERED: XYLOCAINE MPF 2% ONE (14:00)
[2017-03-06] MEDS ORDERED: ZOFRAN ONE (14:33)
[2017-03-06] MEDS ORDERED: DECADRON ONE (14:33)
[2017-03-06] MEDS ORDERED: MARCAINE 0.5% INFILTRATI ONE (14:42)
[2017-03-06] MEDS ORDERED: HEPARIN 10,000 UNITS/10 ML 2,000 UNIT in NACL 0.9% 500 ML 500 ML IR ONE (14:42)
[2017-03-06] MEDS ORDERED: RIFADIN 600 MG in NACL 0.9% 50 ML IR ONE (14:42)
[2017-03-06] MEDS ORDERED: NACL 0.9% IR ONE (14:42)
[2017-03-06] MEDS ORDERED: NACL 0.9% 100 ML ONE (14:53)
[2017-03-06] MEDS ORDERED: NEO SYNEPHRINE ONE (14:53)
--- NOTE | 2017-03-06 15:42 | Short Stay Summary ---
Short Stay Documentation Date of service: 03/06/17 Narrative H&P: See H&P - History H&P: obtained from office - Allergies and Medications Current Medications: Allergies No Known Allergies Allergy (Verified 03/18/15 10:53) Home Medications Medication Instructions Recorded Confirmed Last Taken Type Calcium Acetate [Phoslo] 667 mg PO TID 10/21/16 03/06/17 03/06/17 History ALBUTEROL NEB's [Proventil 0.083% 2.5 mg IH Q4HRT PRN #30 nebu 01/08/1703/04/17 Rx NEBS] Acetaminophen [Acetaminophen TAB] 650 mg PO Q4H PRN #30 tablet 01/08/1703/04/17 Rx Calcitriol [Rocaltrol] 0.25 mcg PO QDAY #30 capsule 01/08/17 03/06/17 03/06/17 Rx Carvedilol [Coreg] 12.5 mg PO BID #60 tablet 01/08/17 03/06/17 03/06/17 Rx DAPTOmycin [Cubicin] 400 mg IV Q48HR #1 vial 01/08/17 03/06/17 03/06/17 Rx Famotidine [Pepcid] 20 mg PO QAM #30 tablet 01/08/17 03/06/17 03/06/17 Rx amLODIPine [Norvasc] 10 mg PO DAILY #30 tablet 01/08/17 03/06/17 03/06/17 Rx Docusate Sodium [Colace] 100 mg PO QDAY 03/01/17 03/06/17 03/05/17 History Insulin Regular, Human [HumuLIN R] 0 unit SQ BIDAC 03/01/17 03/01/17 Unknown History Mirtazapine [Remeron] 15 mg PO QHS 03/01/17 03/06/17 03/05/17 History Active Medications Famotidine (Pepcid) 20 mg IV PREOP NR Stop: 03/06/17 23:00 Last Admin: 03/06/17 13:34 Dose: 20 mg Hydromorphone HCl (Dilaudid) 0.25 mg IV Q10MIN PRN PRN Reason: Pain, Moderate (4-6) Stop: 03/06/17 19:00 Cefazolin Sodium (Ancef/Sterile Water 2 Gm/20 Ml) 2 gm in 20 mls @ 80 mls/hr IV PREOP NR PRN Reason: Protocol Stop: 03/06/17 23:59 Sodium Chloride (Nacl 0.9% 1000 Ml) 1,000 mls @ 42 mls/hr IV DIRECT YAMILETH Stop: 03/06/17 23:59 Last Admin: 03/06/17 13:34 Dose: 42 mls/hr - Brief post op/procedure progress note Date of procedure: 03/06/17 Pre-op diagnosis: ESRD Post-op diagnosis: same Procedure: Creation of left brachial artery to axillary vein AV graft with 5 mm bovine graft Anesthesia: GETA Surgeon: ELIZA IVY Estimated blood loss: minimal Pathology: none Condition: stable - Disposition Condition at discharge: Good Disposition: DC-01 TO HOME OR SELFCARE Short Stay Discharge Plan Activity: other (No heavy lifting with left arm) Wound: open to air, keep clean and dry, other (okay to wash the wound with soap and water but do not soak in water) Follow up with: ELIZA IVY MD [Staff Physician] - 14 Days Prescriptions: HYDROcodone/APAP 7.5-325 [Logan 7.5/325] 1 each PO Q6HR PRN #50 tablet PRN Reason: Pain
--- NOTE | 2017-03-06 15:44 | Operative Report ---
Operative Report Operative Report: Date of procedure: 03/06/2017 Pre-operative diagnosis: End-Stage Renal Disease Post-operative diagnosis: Same Procedure(s): 1. Creation of Left Brachial Artery to Axillary Vein AV Graft with 5 mm Bovine Graft Surgeon: Santos Sheridan MD Welding Equipment Repairer Supervisor: None Anesthesia: General Endotracheal Anesthesia EBL: Minimal Counts: Correct Complications: None Condition: Stable Findings: Successful Creation of Left Arm AV Graft Specimen: None Indication: The patient is a 86-year-old female with history of end-stage renal disease on hemodialysis through a PermCath. She is in need of long-term access. She was given the risk, benefits, and alternative procedures of an AV graft and consented to the procedure. Description of Procedure: The patient was brought to the operating room and laid in supine position after general endotracheal anesthesia was achieved the left arm was prepped and draped in normal sterile fashion. A longitudinal incision was made on the medial aspect of the arm just proximal to the antecubital crease and carried down to the brachial artery using sharp dissection. The brachial artery was dissected out circumferentially both proximally and distally and controlled with vessel loops. A second incision was created in longitudinal fashion on the medial aspect of the arm just distal to the axillary crease and carried down to the axillary vein using sharp dissection. Axillary vein was dissected out circumferentially and controlled with a vessel loop. I then used a Nannette- Wick tunneler to tunnel from the brachial artery incision to the axillary vein incision and then put an 8 mm bovine through the tunnel. I infused with heparinized saline to ensure that it was not twisted or kinked. I put the brachial artery vessel loops on tension controlling the flow and then created an arteriotomy using an 11 blade and Lopez scissors. I beveled the graft and created an end-to-side anastomosis using 6-0 Prolene running fashion. I clamped the graft just proximal to the anastomosis and then released the vessel loops restoring flow in the brachial artery. I placed quick clot in incision to achieve hemostasis. I cut the proximal end of the graft to the appropriate length and beveled the graft in preparation for a venous anastomosis. I controlled the axillary vein a Satinsky clamp and created a venotomy using an 11 blade and Lopez scissors. I created an end to side anastomosis using a 6-0 Prolene in running fashion. Prior to completing the anastomosis I flushed the graft to ensure there was no thrombus and then completed the anastamosis. I released all clamps allowing flow into the AV graft which had an excellent thrill. I packed the wound with quick clot to achieve hemostasis. I anesthetized both wounds with Marcaine and then closed both wounds in 2 layers using 3-0 Vicryl in running fashion in the deep dermal layer and 4-0 Monocryl in running fashion the subcuticular layer. I dressed both wounds with Surgicel. The patient tolerated the procedure well. All sponge, needle, and instrument counts were correct. The patient was taken to recovery in stable condition.
[2017-03-06 17:30] VITALS: BP 182/91
== END 2017-03-06 17:53 | disposition home or self-care (01) ==
LOC: OR 11:34
PROVIDERS: ATTEND Surgery Vascular Surgery
DX: E11.22 Type 2 diabetes mellitus with diabetic chronic kidney disease (principal); I13.2 Hypertensive heart and chronic kidney disease with heart failure and with stage 5 chronic kidney disease, or end stage renal disease; I50.9 Heart failure, unspecified; N18.6 End stage renal disease; J44.9 Chronic obstructive pulmonary disease, unspecified; J45.909 Unspecified asthma, uncomplicated; D64.9 Anemia, unspecified; Z99.2 Dependence on renal dialysis; Z93.3 Colostomy status; Z87.891 Personal history of nicotine dependence; Z80.9 Family history of malignant neoplasm, unspecified
CPT/HCPCS: 36415; 36830; 80048; 82962; 85025; 85610; C1768; J0690; J1100; J1644; J2370; J2405; J2704; J3010; J3490; J7030; J7040; J2720

== ENCOUNTER 2017-06-12 09:09 | Emergency (ER) | payer MEDICARE ==
[2017-06-12] MEDS ORDERED: NORCO 5/325 PO ONE (10:24)
--- NOTE | 2017-06-12 10:24 | Emergency Department Report ---
Chief Complaint: Extremity Problem,Nontraumatic Stated Complaint: ARM PAIN FROM PORT Time Seen by Provider: 06/12/17 10:18 - HPI History of Present Illness: PT c/o gradual onset of swelling to LUE x 3-4 days. PT states she called her doctor and was told that the swelling would go down but it has only gotten worse. PT states she has vascular access placed in L upper ext in March but Dr Schmid. - ROS Review of Systems: - fever + chill - cp - sob - Exam Vital Signs: Vital Signs 06/12/17 10:16 Temperature 98.6 F Pulse Rate 95 H Respiratory 18 Rate Blood Pressure 112/80 O2 Sat by Pulse 100 Oximetry Physical Exam: + swelling to LUE MSE screening note: Focused history and physical exam performed. Due to findings the following was ordered: labs, us, med ED Disposition for MSE Condition: Stable
[2017-06-12] MEDS ORDERED: ZOFRAN ODT PO ONE (10:25)
[2017-06-12] MEDS ORDERED: NORCO 5/325 ONE (10:29)
[2017-06-12] MEDS ORDERED: ZOFRAN ODT ONE (10:30)
--- NOTE | 2017-06-12 11:58 | Emergency Department Report ---
HPI - General Chief Complaint: Extremity Injury, Upper Time Seen by Provider: 06/12/17 10:18 - HPI HPI: This is a 86-year-old female presents to the emergency department from outpatient ultrasound with the complaint of possible clogged left upper extremity AV graft access. The patient gets dialysis on Sunday, Sunday and Sunday and has been getting it from a chest Vas-Cath. She had a left upper extremity AV graft placed by Dr. Schmid in March that was supposed to be a more permanent replacement. Apparently it infiltrated about 3 weeks ago causing some swelling and discomfort at that time. She saw Dr. Schmid and was told that it was "blood under the skin" and that there was nothing that could be done immediately but she had an appointment set up for the . However the past 3 days she says the swelling is worsening, it hurts more and it is hot and red. She also has a past medical history of CHF, COPD, DVT, diabetes, coronary artery disease, hypertension and anemia. She was sent over after a left upper extremity venous Doppler ultrasound did not show any DVT but appeared to show possible steal syndrome. ED Past Medical Hx - Past Medical History Previous Medical History?: Yes Hx Hypertension: Yes Hx Heart Attack/AMI: Yes (CARDIAC ARREST IN 2010 DURING PERFORATED BOWEL SURGERY ) Hx Congestive Heart Failure: Yes Hx Diabetes: Yes Hx Deep Vein Thrombosis: Yes (IN LEG) Hx GERD: Yes Hx Renal Disease: Yes (HD YESTERDAY, RIGHT VASCATH) Hx Arthritis: Yes Hx Seizures: No Hx COPD: Yes Hx HIV: No Additional medical history: Anemia requiring blood transfusion - Surgical History Past Surgical History?: Yes Hx Cholecystectomy: Yes (10-31-16) Additional Surgical History: FILTER FOR CLOTS. 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 - Social History Smoking Status: Former Smoker Substance Use Type: None - Medications Home Medications: Home Medications Medication Instructions Recorded Confirmed Last Taken Type Calcium Acetate [Phoslo] 667 mg PO TID 10/21/16 03/06/17 03/06/17 History ALBUTEROL NEB's [Proventil 0.083% 2.5 mg IH Q4HRT PRN #30 nebu 01/08/1703/04/17 Rx NEBS] Acetaminophen [Acetaminophen TAB] 650 mg PO Q4H PRN #30 tablet 01/08/1703/04/17 Rx Calcitriol [Rocaltrol] 0.25 mcg PO QDAY #30 capsule 01/08/17 03/06/17 03/06/17 Rx Carvedilol [Coreg] 12.5 mg PO BID #60 tablet 01/08/17 03/06/17 03/06/17 Rx DAPTOmycin [Cubicin] 400 mg IV Q48HR #1 vial 01/08/17 03/06/17 03/06/17 Rx Famotidine [Pepcid] 20 mg PO QAM #30 tablet 01/08/17 03/06/17 03/06/17 Rx amLODIPine [Norvasc] 10 mg PO DAILY #30 tablet 01/08/17 03/06/17 03/06/17 Rx Docusate Sodium [Colace CAP] 100 mg PO QDAY 03/01/17 03/06/17 03/05/17 History Insulin Regular, Human [HumuLIN R] 0 unit SQ BIDAC 03/01/17 03/01/17 Unknown History Mirtazapine [Remeron] 15 mg PO QHS 03/01/17 03/06/17 03/05/17 History HYDROcodone/APAP 7.5-325 [[place] 1 each PO Q6HR PRN #50 tablet 03/06/17 Unknown Rx 7.5/325] ED Review of Systems ROS: Stated complaint: ARM PAIN FROM PORT Other details as noted in HPI Comment: All other systems reviewed and negative Constitutional: denies: chills, fever Eyes: denies: eye pain, eye discharge, vision change ENT: denies: ear pain, throat pain Respiratory: denies: cough, shortness of breath, wheezing Cardiovascular: denies: chest pain, palpitations Gastrointestinal: denies: abdominal pain, nausea, diarrhea Genitourinary: denies: urgency, dysuria, discharge Musculoskeletal: joint swelling, myalgia Skin: rash, change in color Neurological: denies: headache, weakness, paresthesias Physical Exam - Physical Exam Vital Signs: Vital Signs 06/12/17 06/12/17 10:16 11:37 Temperature 98.6 F 98.4 F Pulse Rate 95 H 92 H Respiratory 18 18 Rate Blood Pressure 112/80 Blood Pressure 134/55 [Right] O2 Sat by Pulse 100 100 Oximetry Physical Exam: GENERAL: The patient is well-developed well-nourished. HENT: Normocephalic. Atraumatic. Patient has moist mucous membranes. EYES: Extraocular motions are intact. Pupils equal reactive to light bilaterally. NECK: Supple. Trachea is midline. CHEST/LUNGS: Clear to auscultation. There is no respiratory distress noted. HEART/CARDIOVASCULAR: Regular. There is no tachycardia. There is no gallop rub or murmur. ABDOMEN: Abdomen is soft, nontender. Patient has normal bowel sounds. There is no abdominal distention. SKIN: There is some nonpitting swelling to the left upper arm as well as some mild erythema but no warmth or fluctuance. NEURO: The patient is awake, alert, and oriented. The patient is cooperative. The patient has no focal neurologic deficits. The patient has normal speech. MUSCULOSKELETAL: There is some mild tenderness to palpation to the left upper extremity. There appears to be an AV graft with a palpable thrill and audible. There is no limitation range of motion. ED Course Vital Signs 06/12/17 06/12/17 10:16 11:37 Temperature 98.6 F 98.4 F Pulse Rate 95 H 92 H Respiratory 18 18 Rate Blood Pressure 112/80 Blood Pressure 134/55 [Right] O2 Sat by Pulse 100 100 Oximetry - Consultations Consultation #1: 06/12/17 15:26 I spoke to the vascular PA, Sd Morse, who does not feel that the patient has steal syndrome. They will take the patient to the [facility] for a fistulogram and to evaluate her AV graft access. They feel the patient will be safe for discharge home after this is done as usually it as an outpatient procedure for them. ED Medical Decision Making - Lab Data Result diagrams: 06/12/17 12:03 06/12/17 12:03 - Radiology Data Radiology results: report reviewed Left upper extremity venous Doppler does not show any evidence of DVT. Preliminary tech report says concern for steal syndrome. - Medical Decision Making 86-year-old female presents with a history of left upper arm pain and swelling secondary to infiltrated AV graft. She was sent in for a venous Doppler to rule out a DVT and there was in fact no DVT found. There was some concern on the preliminary tech report for steel syndrome. Patient is following with [facility] vascular who consulted on the patient here today and took her to the [facility] for further evaluation of the patency of the AV graft. Otherwise they did not feel the patient required admission at this time and she will continue with AV graft rest until the infiltration subsides and then it will be used primarily for her dialysis and the chest port will be removed. Vital signs stable including being afebrile. Labs are mostly unremarkable including no leukocytosis. There is some renal deficiency but the patient is dialysis dependent. She will return to the ER with any worsening symptoms or any acute distress. Critical Care Time: No Critical care attestation.: If time is entered above; I have spent that time in minutes in the direct care of this critically ill patient, excluding procedure time. ED Disposition Clinical Impression: End-stage renal disease (ESRD) Dialysis AV fistula malfunction Qualifiers: Encounter type: initial encounter Qualified Code(s): T82.590A - Other mechanical complication of surgically created arteriovenous fistula, initial encounter CKD (chronic kidney disease) Qualifiers: Chronic kidney disease stage: on chronic dialysis Qualified Code(s): N18.6 - End stage renal disease Disposition: TO HOME OR SELFCARE Is pt being admited?: No Condition: Stable Referrals: PRIMARY CAREMD [Primary Care Provider] - 3-5 Days Time of Disposition: 15:27
[2017-06-12 12:51] LABS: Basophils % (Auto) 0.7 % (0.0-1.8); Eosinophils % (Auto) 5.1 % (0.0-4.3); Hematocrit 38.5 % (30.3-42.9); Hemoglobin 12.4 gm/dl (10.1-14.3); Mean Corpuscular HGB Conc 32 % (30-34); Mean Corpuscular Hemoglobin 32 pg (28-32); Mean Corpuscular Volume 98 fl (79-97); Red Blood Count 3.91 M/mm3 (3.65-5.03); Red Cell Distribution Width 18.5 % (13.2-15.2); White Blood Count 10.4 K/mm3 (4.5-11.0)
[2017-06-12 12:52] LABS: BUN/Creatinine Ratio 7.29; Calcium 9.3 mg/dL (8.4-10.2); Chloride 96.1 mmol/L (98-107); Potassium 3.9 mmol/L (3.6-5.0)
[2017-06-12 12:58] LABS: Platelet Count 200 K/mm3 (140-440)
[2017-06-12 13:01] LABS: INR 2.16 (0.87-1.13)
--- NOTE | 2017-06-12 13:02 | Operative Report ---
Operative Report Operative Report: Date of Procedure: 06/12/2017 Pre-operative Diagnosis: Complications of Dialysis Access Post-operative Diagnosis: Same Procedure(s): 1. Access Left AV Fistula with 7 Jordanian Sheath Venous 2. Fistulogram with Central Venogram 3. Angioplasty of Left Innominate Vein and SVC with 10 x 40 and 12 x 60 Balloons 4. Radiologic Supervision with Interpretation Surgeon: Santos Sheridan M.D. Die Tripper: None Anesthesia: Local and IV sedation EBL: Minimal Counts: Correct Complications: None Condition: Stable Findings: The left brachial artery to axillary vein AV graft was widely patent with a widely patent anastomosis. There was occlusion of the left innominate vein was reconstituted in the distal SVC. After passing with a 10 x 40 balloon followed by a 12 x 60 balloon innominate vein and proximal SVC were patent with approximately 25% residual stenosis. Specimen: None Indication: The patient is an 86-year-old female with a history of end-stage renal disease who has a left arm AV graft and a left internal jugular permacath. She presents to the emergency department with complaints of left arm swelling that began 3 weeks after infiltration of the graft. It has progressively worsened over the past 3 days and now she complains of pain throughout the arm. 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 She was given the risks, benefits, and alternative procedures and consented to the procedure. Description of Procedure: The patient was brought to the catheter builder and laid in supine position. After she was adequately sedated her left arm was prepped and draped in normal sterile fashion. After anesthetizing the skin micropuncture technique was used to access the graft was a venous outflow and a 0.035 J-wire was advanced into the graft. A short 6 Jordanian sheath was in place possible technique. A fistulogram was performed previously described findings. I exchanged the 6 Jordanian sheath for a 7 Jordanian 23 cm sheath and then used a combination of a 6 Jordanian MP Guide Catheter and a 0.035 Crossing catheter with a 0.035 stiff Glidewire and was able to cross the occlusion. The catheter and wire were then advanced into the IVC with the patient had an IVC filter that appeared to be in adequate position. An inferior venacavogram was performed and demonstrated the inferior vena cava was widely patent. Initially angioplasty of the innominate vein approximately SVC was performed with a 10 x 40 balloon approximately 60% residual stenosis. I then performed additional balloon angioplasty with a 12 x 60 balloon with the final result of approximately 25% residual stenosis. All balloons and wires were then removed and a 4-0 chromic in pursestring fashion was used to close entry site. The wound was then dressed with Dermabond. The patient tolerated the procedure well. All sponge, needle, and his counts were correct. The patient was taken to the recovery area in stable condition.
[2017-06-12 13:21] LABS: Partial Thromboplastin Time 91.9 Sec. (24.2-36.6)
--- NOTE | 2017-06-12 13:37 | Consultation ---
History of Present Illness - Reason for Consult Consult date: 06/12/17 Requesting physician: CHERI MATTHEWS - History of Present Illness This patient is a 86-year-old female that presented to an emergency room with complaints of left upper extremity pain and swelling. She has end-stage renal disease, and status post the creation of a left brachial artery to axillary vein graft using (5 mm bovine graft) on 03/06/2017. She has used a left internal jugular vein perma cath for dialysis until approximately 3 weeks ago. They accessed the graft initially without difficulty. Unfortunately on the second attempt they infiltrated the access. She was attended in our office and AV graft rest was recommended. She is once again been using her permacath for hemodialysis. The pain and swelling have been progressively worse over the last few weeks and especially over the last 2 days. Therefore the patient has presented to the emergency room, and a vascular surgery consult has been requested to further evaluate. Past History Past Medical History: COPD, diabetes, dialysis, ESRD, heart failure, hypertension, other (asthma) Past Surgical History: cholecystectomy, Other (Colon surgery with colostomy, The above stated permacath and avg) Social history: . denies: smoking (H/o tob use), alcohol abuse Family history: cancer Medications and Allergies Allergies Allergy/AdvReac Type Severity Reaction Status Date / Time No Known Allergies Allergy Verified 03/18/15 10:53 Home Medications Medication Instructions Recorded Confirmed Last Taken Type Calcium Acetate [Phoslo] 667 mg PO TID 10/21/16 03/06/17 03/06/17 History ALBUTEROL NEB's [Proventil 0.083% 2.5 mg IH Q4HRT PRN #30 nebu 01/08/1703/04/17 Rx NEBS] Acetaminophen [Acetaminophen TAB] 650 mg PO Q4H PRN #30 tablet 01/08/1703/04/17 Rx Calcitriol [Rocaltrol] 0.25 mcg PO QDAY #30 capsule 01/08/17 03/06/17 03/06/17 Rx Carvedilol [Coreg] 12.5 mg PO BID #60 tablet 01/08/17 03/06/17 03/06/17 Rx DAPTOmycin [Cubicin] 400 mg IV Q48HR #1 vial 01/08/17 03/06/1703/06/17 Rx Famotidine [Pepcid] 20 mg PO QAM #30 tablet 01/08/17 03/06/17 03/06/17 Rx amLODIPine [Norvasc] 10 mg PO DAILY #30 tablet 01/08/17 03/06/17 03/06/17 Rx Docusate Sodium [Colace CAP] 100 mg PO QDAY 03/01/17 03/06/17 03/05/17 History Insulin Regular, Human [HumuLIN R] 0 unit SQ BIDAC 03/01/17 03/01/17 Unknown History Mirtazapine [Remeron] 15 mg PO QHS 03/01/17 03/06/17 03/05/17 History HYDROcodone/APAP 7.5-325 [[place] 1 each PO Q6HR PRN #50 tablet 03/06/17 Unknown Rx 7.5/325] Review of Systems All systems: negative Exam - Constitutional Vitals: Temp Pulse Resp BP Pulse Ox 98.4 F 92 H 18 134/55 100 06/12/17 11:37 06/12/17 11:37 06/12/17 11:37 06/12/17 11:37 06/12/17 11:37 General appearance: Present: no acute distress - EENT Eyes: Present: EOM intact ENT: hearing intact - Neck Neck: Present: supple, other ([facility] PC in place with spiderweb like dilated venous varicosities over her chest) - Respiratory Respiratory effort: normal - Extremities Extremities: no ischemia (easily palp LUE upper arm avg thrill. Mod to severe pitting edema of the LUE from the shoulder to the hand.) - Psychiatric Psychiatric: appropriate mood/affect, intact judgment & insight, cooperative - Neurologic Neurologic: no focal deficits Results - Labs CBC & Chem 7: 06/12/17 12:03 06/12/17 12:03 Labs: Abnormal lab results 06/12/17 06/12/17 06/12/17 Range/Units 12:03 12:03 12:03 MCV 98 H (79-97) fl RDW 18.5 H (13.2-15.2) % [place] % (Auto) 10.2 H (0.0-7.3) % Eos % (Auto) 5.1 H (0.0-4.3) % [place] # 1.1 H (0.0-0.8) K/mm3 Eos # 0.5 H (0.0-0.4) K/mm3 PT 24.1 H (12.2-14.9) Sec. INR 2.16 H (0.87-1.13) APTT 91.9 H* (24.2-36.6) Sec. Chloride 96.1 L (98-107) mmol/L BUN 27 H (7-17) mg/dL Creatinine 3.7 H (0.7-1.2) mg/dL Glucose 120 H (65-100) mg/dL Assessment and Plan Pt's upper ext swelling and dilatation of the venous varicosities on the chest suggest a cental venous stenosis. Recommend fistulagram with possible angioplasty. The R,B, and A were discussed in great detail with the pt who stated understanding and agreed to proceed. This will hopefully speed her improvement in swelling. Ultimately arm swelling should improve once her permacath is removed. The Pc should be able to be removed once the avg infiltration has improved, and the graft is able to be accessed successfully. - Patient Problems (1) AV graft malfunction Current Visit: Yes Status: Acute Qualifiers: Encounter type: E
[2017-06-12] MEDS ORDERED: XYLOCAINE 2% INFILTRATI ONE (14:27)
[2017-06-12] MEDS ORDERED: NACL 0.9% 250ML 250 ML ONE (14:27)
[2017-06-12] MEDS ORDERED: HEPARIN/NS 5000 UNIT/500ML(CATH LAB) 500 ML IR ONE (14:27)
[2017-06-12] MEDS ORDERED: HEPARIN 10,000 UNITS/10 ML ONE (14:27)
[2017-06-12] MEDS ORDERED: ANCEF/STERILE WATER 2 GM/20 ML 2 GM/20 ML SYRINGE IV ONE (14:38)
[2017-06-12] MEDS: SUBLIMAZE ONE ×2 (14:40→15:03)
[2017-06-12] MEDS: VERSED ONE ×2 (14:40→15:02)
[2017-06-12] MEDS ORDERED: SUBLIMAZE ONE (15:26)
[2017-06-12 16:43] VITALS: BP 146/81
== END 2017-06-12 17:59 | disposition home or self-care (01) ==
LOC: ED 09:09
DX: T82.590A Other mechanical complication of surgically created arteriovenous fistula, initial encounter (principal); I50.9 Heart failure, unspecified; E11.65 Type 2 diabetes mellitus with hyperglycemia; I12.0 Hypertensive chronic kidney disease with stage 5 chronic kidney disease or end stage renal disease; N18.6 End stage renal disease; M19.90 Unspecified osteoarthritis, unspecified site; I82.409 Acute embolism and thrombosis of unspecified deep veins of unspecified lower extremity; J44.9 Chronic obstructive pulmonary disease, unspecified; I25.2 Old myocardial infarction; Z87.891 Personal history of nicotine dependence; D64.9 Anemia, unspecified; Z99.2 Dependence on renal dialysis
CPT/HCPCS: 36415; 36902; 80048; 85025; 85610; 85730; 93971; 99284; C1725; C1751; C1769; C1887; C1894; J0690; J1644; J2250; J3010; J7050; Q0162; Q9967

== ENCOUNTER 2018-03-01 08:24 | Day surgery (SDC) | payer MEDICARE ==
[2018-03-01 09:07] LABS: Basophils # (Auto) 0.1 K/mm3 (0.0-0.1); Basophils % (Auto) 1.2 % (0.0-1.8); Eosinophils # (Auto) 0.5 K/mm3 (0.0-0.4); Eosinophils % (Auto) 10.3 % (0.0-4.3); Hematocrit 33.3 % (30.3-42.9); Hemoglobin 11.3 gm/dl (10.1-14.3); Lymphocytes # (Auto) 1.2 K/mm3 (1.2-5.4); Lymphocytes % (Auto) 22.7 % (13.4-35.0); Mean Corpuscular HGB Conc 34 % (30-34); Mean Corpuscular Hemoglobin 32 pg (28-32); Mean Corpuscular Volume 95 fl (79-97); Monocytes # (Auto) 0.5 K/mm3 (0.0-0.8); Monocytes % (Auto) 9.4 % (0.0-7.3); Platelet Count 265 K/mm3 (140-440)
[2018-03-01 09:16] LABS: Calcium 9.1 mg/dL (8.4-10.2)
[2018-03-01] MEDS ORDERED: HEPARIN 10,000 UNITS/10 ML ONE (10:22)
[2018-03-01] MEDS ORDERED: HEPARIN/NS 5000 UNIT/500ML(CATH LAB) 500 ML IR ONE ×2 (10:22→11:43)
[2018-03-01] MEDS ORDERED: XYLOCAINE 2% INFILTRATI ONE (10:22)
[2018-03-01] MEDS ORDERED: ANCEF/STERILE WATER 2 GM/20 ML 2 GM/20 ML SYRINGE IV ONE (10:23)
[2018-03-01] MEDS ORDERED: NACL 0.9% 250ML 0 ML ONE (10:27)
[2018-03-01] MEDS ORDERED: NACL 0.9% 500 ML 500 ML ONE (10:35)
[2018-03-01] MEDS: VERSED ONE ×4 (11:01→12:14)
[2018-03-01] MEDS: SUBLIMAZE ONE ×4 (11:01→12:14)
[2018-03-01] MEDS ORDERED: XYLOCAINE 1%/ EPI 1:100,000 INFILTRATI ONE ×2 (11:23→11:43)
--- NOTE | 2018-03-01 12:33 | Short Stay Summary ---
Short Stay Documentation Date of service: 03/01/18 Narrative H&P: 87 year old female with severe left arm swelling and in need of dialysis. Set up for Tunneled hemodialysis catheter and fistulogram. - History Principal diagnosis: AVG malfunction H&P: obtained from office - Allergies and Medications Current Medications: Allergies No Known Allergies Allergy (Verified 03/18/15 10:53) Home Medications Medication Instructions Recorded Confirmed Last Taken Type Calcium Acetate [Phoslo] 667 mg PO TID 10/21/16 03/01/18 02/28/18 History 667mg ALBUTEROL NEB's [Proventil 0.083% 2.5 mg IH Q4HRT PRN #30 nebu 01/08/1702/28/18 Rx NEBS] 2 Acetaminophen [Acetaminophen TAB] 650 mg PO Q4H PRN #30 tablet 01/08/1703/04/17 Rx Calcitriol [Rocaltrol] 0.25 mcg PO QDAY #30 capsule 01/08/17 03/01/18 02/28/18 Rx 0.25mg Carvedilol [Coreg] 12.5 mg PO BID #60 tablet 01/08/17 03/01/18 03/01/18 Rx 12.5mg Famotidine [Pepcid] 20 mg PO QAM #30 tablet 01/08/17 03/01/18 02/28/18 Rx 20mg amLODIPine [Norvasc] 10 mg PO DAILY #30 tablet 01/08/17 03/01/18 03/01/18 Rx 10mg Docusate Sodium [Colace CAP] 100 mg PO QDAY 03/01/17 03/01/18 02/28/18 History 100mg Mirtazapine [Remeron] 15 mg PO QHS 03/01/17 03/01/18 02/28/18 History 15mg HYDROcodone/APAP 7.5-325 [[place] 1 each PO Q6HR PRN #50 tablet 03/06/17 03/01/18 Unknown Rx 7.5/325] Active Medications Cefazolin Sodium (Ancef/Sterile Water 2 Gm/20 Ml) 2 gm in 20 mls @ 80 mls/hr IV PREOP NR; Protocol Stop: 03/01/18 23:59 Sodium Chloride (Nacl 0.9% 1000 Ml) 1,000 mls @ 42 mls/hr IV DIRECT YAMILETH - Physical exam General appearance: no acute distress Lungs: Normal air movement Gastrointestinal: normal Extremities: normal temperature, normal color, abnormal (3-4+ sweling LUE) - Brief post op/procedure progress note Date of procedure: 03/01/18 Pre-op diagnosis: AVG malfunction Post-op diagnosis: same Procedure: right IJ HD tunneled catheter left centeral and peripheral fistulogram Anesthesia: local (w/ conscious sedation) Surgeon: ROSA SANDERS Estimated blood loss: minimal Condition: stable - Hospital course Hospital course: Ready for discharge. - Disposition Condition at discharge: Stable Disposition: DC-01 TO HOME OR SELFCARE - Discharge Diagnoses (1) AV graft malfunction Status: Acute Short Stay Discharge Plan Activity: advance as tolerated Weight Bearing Status: Weight Bear as Tolerated Diet: renal Wound: keep clean and dry Follow up with: JOSÉ ANTONIO AWAD MD [Primary Care Provider] - 7 Days
[2018-03-01 13:38] VITALS: BP 142/63
--- NOTE | 2018-03-01 13:49 | Operative Report ---
Operative Report Operative Report: EXAM: 1. Ultrasound-guided puncture of the right internal jugular vein 2. Fluoroscopic-guided placement of a right internal jugular tunneled cuffed hemodialysis catheter. 3. SVC Venography 4. Ultrasound-guided access of the left arm AV access towards the venous outflow 5. Fistulogram 6. Angioplasty of the left innominate vein with a 12 mm x 60 mm angioplasty balloon (central dialysis access) 7. Angioplasty of the venous anastomosis with a 9 mm x 60 mm angioplasty balloon (peripheral dialysis access) DATE: 03/01/18 INDICATION: 87-year-old female with end-stage renal disease and 3-4+ left upper extremity swelling with left upper action re-AV dialysis access. She cannot receive dialysis due to the dialysis center being scared to access her hemodialysis access. Therefore, PermCath will be placed for the next few weeks and fistulogram with angioplasty will be performed of the left upper extremity AV access. MEDICATIONS: Please see nursing report for full details. DEVICES: 19 cm tip to cuff 15 Fr dual lumen hemodialysis catheter 12 mm x 60 mm angioplasty balloon 9 mm x 60 mm angioplasty balloon ARCHITECT INTERN: ROSA SANDERS MD CONTRAST: None PROCEDURE: The risks, benefits, and alternatives were discussed and informed consent was obtained. The patient was transported to the angiography suite in satisfactory/ stable condition and was transported onto the angiography table. The patient's right internal jugular vein was assessed with ultrasound and determined to be patent prior to procedure. The patient was prepped and draped in a sterile fashion. The puncture site was anesthetized. Under sonographic guidance, the right internal jugular vein was punctured with a 21-gauge micropuncture needle and a 0.018 inch wire was advanced into the right internal jugular vein but did not pass into the right innominate vein. The inner portion of the transitional dilator was advanced over the wire and the wire was then manipulated into the inferior vena cava. Transitional dilator was then removed and reassembled and readvanced over the wire. The wire was retracted into the right atrium to eleazar intravascular distance. The wire and inner dilator were removed. Digital subtraction angiography was then performed demonstrating patency of the SVC and lower portion of the right brachiocephalic vein. I suspect there is a narrowing at the internal jugular-brachiocephalic junction, but the transitional dilator was not retracted this far. 0.035 inch wire was advanced through the transitional dilator into the inferior vena cava. A suitable exit site was identified on the patient's chest inferior and lateral to the venotomy. The site was anesthetized with local anesthetic and the track was anesthetized. Dermatotomy was made. The PermCath was attached to the tunneling device and tunneled between the dermatotomy to the venotomy. Over the 0.035 inch wire, serial dilatation was performed with ultimate placement of a peel-away sheath. The catheter was advanced through the peel- away sheath after the wire was removed and positioned centrally under fluoroscopic guidance. The peel-away sheath was removed. The catheter tip is in the right atrium. 4-0 Vicryl suture was used to close the venotomy and Dermabond was then applied. 2-0 Ethilon suture was used to secure the catheter at the dermatotomy. Excellent flow was obtained through the dialysis catheter with 20 mL syringes. The catheter was charged with heparin 1000 units per mL of space. Sterile dressing and Biopatch applied. The left arm was then prepped and draped in a sterile fashion. The patient's left arm AV access was assessed by ultrasound and was patent. The patient was prepped and draped in a sterile fashion. Under ultrasound guidance, the left arm AV access was accessed with a 21-gauge micropuncture needle. The area was anesthetized prior to access. 0.018 inch wire was advanced through the micropuncture needle into the graft and then the needle was exchanged for a 5 Burkinan transitional dilator. The inner dilator and wire were removed and a 0.035 inch wire was advanced through the venous outflow. The transitional dilator was exchanged for a 6 Burkinan short sheath. Fistulogram was performed of the venous outflow and central veins. Digital subtraction angiography demonstrated that there is a 50% narrowing at the venous anastomosis of the AV graft and a 90% narrowing of the left innominate vein at its midportion. In addition, there is a 20% narrowing of the left subclavian vein at its junction into the left innominate vein. Sheath was then upsized to 7 Burkinan. 12 mm x 60 mm angioplasty balloon was advanced over the wire needs to perform angioplasty of the left innominate vein for 3 minutes at burst pressure, and the left subclavian vein for 1 minute at a nominal pressure. 9 mm x 60 mm angioplasty balloon and she is to perform angioplasty at the venous anastomosis at burst pressure for 90 seconds. Digital subtraction angiography was then performed demonstrating resolution of the narrowing at the venous anastomosis, and decrease in narrowing from 90% narrowing to 30% narrowing at the left innominate vein and resolution of the narrowing of the left subclavian vein. There was some extrinsic compression of the left innominate vein from the aortic arch. The wire was removed and the site was closed with a 3-0 Vicryl suture. The sheath was then removed. Hemostasis was achieved with slight manual compression. The patient was transported from the angiography suite to the floor in stable condition. The patient was transferred from the angiography suite back to the floor in stable condition. FINDINGS: Please see procedure note above. IMPRESSION: 1. Successful ultrasound and fluoroscopically guided placement of a right internal jugular tunneled cuffed hemodialysis catheter. 2. Successful fistulogram with central dialysis access angioplasty. 3. Successful fistulogram with peripheral dialysis access angioplasty.
--- NOTE | 2018-03-06 14:35 | Vascular Lab Report ---
Upper extremity vein mapping Reason for exam: Preoperative evaluation for hemodialysis access Comments: On the right, the cephalic vein is not usable from wrist to shoulder. The basilic vein is not usable from wrist to shoulder. The brachial and radial arteries are patent. The radial artery is of normal caliber. Impression: Superficial veins of the right upper extremity do not appear to be adequate for use as a hemodialysis access conduit.
== END 2018-03-01 08:25 | disposition home or self-care (01) ==
LOC: CATHLABREC 08:24
PROVIDERS: ATTEND Radiology Diagnostic Radiology
DX: T82.898A Other specified complication of vascular prosthetic devices, implants and grafts, initial encounter (principal); I13.2 Hypertensive heart and chronic kidney disease with heart failure and with stage 5 chronic kidney disease, or end stage renal disease; N18.6 End stage renal disease; I50.9 Heart failure, unspecified; J44.9 Chronic obstructive pulmonary disease, unspecified; Z87.891 Personal history of nicotine dependence; Y83.2 Surgical operation with anastomosis, bypass or graft as the cause of abnormal reaction of the patient, or of later complication, without mention of misadventure at the time of the procedure
CPT/HCPCS: 36415; 36558; 36902; 36907; 76937; 77001; 80048; 85025; 99156; 99157; C1725; C1750; C1751; C1894; J0690; J1644; J2250; J3010; J7040; J7050; Q9967

== ENCOUNTER 2018-03-04 13:45 | Emergency (ER) | payer MEDICARE ==
--- NOTE | 2018-03-04 17:30 | Emergency Department Report ---
Upper Extremity - HPI Chief Complaint: Extremity Injury, Upper Stated Complaint: BILATERAL ARM PAIN Time Seen by Provider: 03/04/18 17:02 Upper Extremity: Right Wrist Occurred When: Today Symptoms: Yes Pain with Movement, No Deformity, No Limited Range of Movement, No Numbness, No Swelling, No Bruising/Ecchymosis, No Laceration or Abrasion ED Review of Systems ROS: Stated complaint: BILATERAL ARM PAIN Other details as noted in HPI Comment: All other systems reviewed and negative Constitutional: denies: chills, fever Eyes: denies: vision change ENT: denies: ear pain Respiratory: denies: cough, shortness of breath Cardiovascular: denies: chest pain, palpitations Endocrine: no symptoms reported Gastrointestinal: denies: abdominal pain, nausea, vomiting, diarrhea Genitourinary: denies: urgency, frequency Skin: rash, change in color Neurological: denies: headache, weakness, numbness Psychiatric: denies: anxiety Hematological/Lymphatic: denies: easy bleeding, easy bruising ED Past Medical Hx - Past Medical History Hx Hypertension: Yes Hx Heart Attack/AMI: Yes (CARDIAC ARREST IN 2010 DURING PERFORATED BOWEL SURGERY ) Hx Congestive Heart Failure: Yes Hx Diabetes: Yes Hx Deep Vein Thrombosis: Yes (IN LEG) Hx GERD: Yes Hx Renal Disease: Yes (HD one week ago) Hx Arthritis: Yes Hx Seizures: No Hx COPD: Yes Hx HIV: No Additional medical history: Anemia requiring blood transfusion - Surgical History Hx Cholecystectomy: Yes (10-31-16) Additional Surgical History: FILTER FOR CLOTS. 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 - Social History Smoking Status: Never Smoker Substance Use Type: None - Medications Home Medications: Home Medications Medication Instructions Recorded Confirmed Last Taken Type Calcium Acetate [Phoslo] 667 mg PO TID 10/21/16 03/01/18 02/28/18 History 667mg ALBUTEROL NEB's [Proventil 0.083% 2.5 mg IH Q4HRT PRN #30 nebu 01/08/1702/28/18 Rx NEBS] 2 Acetaminophen [Acetaminophen TAB] 650 mg PO Q4H PRN #30 tablet 01/08/1703/04/17 Rx Calcitriol [Rocaltrol] 0.25 mcg PO QDAY #30 capsule 01/08/17 03/01/18 02/28/18 Rx 0.25mg Carvedilol [Coreg] 12.5 mg PO BID #60 tablet 01/08/17 03/01/18 03/01/18 Rx 12.5mg Famotidine [Pepcid] 20 mg PO QAM #30 tablet 01/08/17 03/01/18 02/28/18 Rx 20mg amLODIPine [Norvasc] 10 mg PO DAILY #30 tablet 01/08/17 03/01/18 03/01/18 Rx 10mg Docusate Sodium [Colace CAP] 100 mg PO QDAY 03/01/17 03/01/18 02/28/18 History 100mg Mirtazapine [Remeron] 15 mg PO QHS 03/01/17 03/01/18 02/28/18 History 15mg HYDROcodone/APAP 7.5-325 [[place] 1 each PO Q6HR PRN #50 tablet 03/06/17 03/01/18 Unknown Rx 7.5/325] oxyCODONE [Roxicodone TAB] 5 mg PO BID PRN 6 Days tablet 03/04/18 Unknown Rx Upper Extremity Exam - Exam General: Vital signs noted. No distress. Alert and acting appropriately. Head and Torso: No HEENT Abnormality, No Neck Tenderness, No Chest/Lungs Abnormality, No Abdominal Tenderness, No Back Tenderness Shoulder Exam: Yes Normal Range of Motion in Shoulder, No Shoulder Tenderness, No Clavicle Tenderness, No Shoulder Deformity, No AC Joint Tenderness Arm Exam: No Arm/Humerus Tenderness, No Arm Deformity Elbow: Yes Normal Range of Motion in Elbow, No Elbow Tenderness, No Elbow Deformity Forearm: No Forearm Tenderness, No Forearm Deformity, No Pain with Pronation, No Pain with Supination Wrist: Yes Normal ROM in Wrist, Yes Wrist Deformity, No Wrist Tenderness, No Snuffbox Tenderness, No Pain with Axial Thumb Compression Hand: Yes Normal ROM in Digit(s), No Hand Tenderness, No Hand Deformity, No Digit Tenderness, No Digit(s) Deformity, No Tendon Dysfunction CMS Exam: Yes Normal Distal Pulses, Yes Normal Capillary Refill, Yes Normal Distal Sensation, No Broken Skin ED Course Vital Signs 03/04/18 03/04/18 03/04/18 14:04 14:13 14:35 Temperature 98.8 F 98.8 F Pulse Rate 79 79 Respiratory 20 20 20 Rate Blood Pressure 154/81 Blood Pressure 154/81 [Right] O2 Sat by Pulse 100 100 100 Oximetry ED Medical Decision Making - Lab Data Result diagrams: 03/04/18 17:56 03/04/18 17:56 - Radiology Data Radiology results: image reviewed - Medical Decision Making Arthralgia Critical care attestation.: If time is entered above; I have spent that time in minutes in the direct care of this critically ill patient, excluding procedure time. ED Disposition Clinical Impression: Arthritis Disposition: DC-01 TO HOME OR SELFCARE Is pt being admited?: No Does the pt Need Aspirin: No Condition: Stable Instructions: Osteoarthritis (ED) Additional Instructions: Please follow up with your Percussion Instructor tomorrow morning. Return to the ED if your condition worsens. Prescriptions: oxyCODONE [Roxicodone TAB] 5 mg PO BID PRN 6 Days tablet PRN Reason: Pain Referrals: DAMIEN POWER MD [Primary Care Provider] - 3-5 Days Time of Disposition: 19:38
[2018-03-04] MEDS ORDERED: ROXICODONE PO ONE (17:32)
[2018-03-04 17:59] VITALS: BP 162/69
[2018-03-04 18:08] LABS: Basophils % (Auto) 0.7 % (0.0-1.8); Eosinophils # (Auto) 0.5 K/mm3 (0.0-0.4); Hematocrit 33.6 % (30.3-42.9); Hemoglobin 11.1 gm/dl (10.1-14.3); Lymphocytes # (Auto) 0.8 K/mm3 (1.2-5.4); Lymphocytes % (Auto) 13.5 % (13.4-35.0); Mean Corpuscular HGB Conc 33 % (30-34); Mean Corpuscular Hemoglobin 32 pg (28-32); Mean Corpuscular Volume 97 fl (79-97); Monocytes # (Auto) 0.6 K/mm3 (0.0-0.8); Monocytes % (Auto) 10.4 % (0.0-7.3); Platelet Count 225 K/mm3 (140-440); Red Blood Count 3.47 M/mm3 (3.65-5.03); Red Cell Distribution Width 16.1 % (13.2-15.2)
[2018-03-04 18:16] LABS: INR 1.14 (0.87-1.13)
[2018-03-04 18:17] LABS: Partial Thromboplastin Time 36.9 Sec. (24.2-36.6)
[2018-03-04 18:27] LABS: BUN/Creatinine Ratio 5; Blood Urea Nitrogen 13 mg/dL (7-17); Hemolysis Index 6
[2018-03-04 18:30] LABS: Alanine Aminotransferase < 5 units/L (7-56)
--- NOTE | 2018-03-04 19:09 | XRay Report ---
FINAL REPORT EXAM: XR WRIST 3+V RT HISTORY: pain in the right wrist TECHNIQUE: AP, lateral, and oblique portable views of the right wrist PRIORS: None. FINDINGS: No evidence of acute fracture or dislocation is seen. The soft tissues are unremarkable with no soft tissue swelling or radiopaque foreign bodies. 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 Extensive subchondral cyst formation is present throughout the carpal bones, distal radius and ulna, and proximal 1st metacarpal. There is also flattening of the trapezium at its junction with the 1st metacarpal. Erosion of the distal aspect of the scaphoid is noted, probably degenerative. IMPRESSION: No acute soft tissue or bony abnormality identified. Extensive degenerative changes throughout the wrist.
== END 2018-03-04 20:21 | disposition home or self-care (01) ==
LOC: ED 13:45
DX: M19.90 Unspecified osteoarthritis, unspecified site (principal); I11.0 Hypertensive heart disease with heart failure; I50.9 Heart failure, unspecified; K21.9 Gastro-esophageal reflux disease without esophagitis; I25.2 Old myocardial infarction; J44.9 Chronic obstructive pulmonary disease, unspecified
CPT/HCPCS: 36415; 80053; 85025; 85610; 85730; 99284

== ENCOUNTER 2018-04-15 11:19 | Day surgery (SDC) | payer MEDICARE ==
[2018-04-15] MEDS ORDERED: ANCEF/STERILE WATER 2 GM/20 ML 2 GM/20 ML SYRINGE IV NR (12:00)
[2018-04-15] MEDS ORDERED: XYLOCAINE 1%/ EPI 1:100,000 INFILTRATI ONE (12:45)
[2018-04-15] MEDS ORDERED: HEPARIN/NS 5000 UNIT/500ML(CATH LAB) 500 ML IR ONE (12:45)
[2018-04-15] MEDS ORDERED: NACL 0.9% 250ML 250 ML ONE (12:46)
[2018-04-15] MEDS ORDERED: ANCEF/STERILE WATER 2 GM/20 ML 2 GM/20 ML SYRINGE IV ONE (12:46)
[2018-04-15] MEDS: VERSED ONE ×2 (13:19→13:20)
[2018-04-15] MEDS: SUBLIMAZE ONE ×3 (13:19→13:43)
[2018-04-15] MEDS: HEPARIN 10,000 UNITS/10 ML ONE ×2 (13:44→13:45)
--- NOTE | 2018-04-15 15:26 | Short Stay Summary ---
Short Stay Documentation Date of service: 04/15/18 - History Principal diagnosis: dialysis access malfunction H&P: obtained from office - Allergies and Medications Current Medications: Allergies No Known Allergies Allergy (Verified 03/18/15 10:53) Home Medications Medication Instructions Recorded Confirmed Last Taken Type Calcium Acetate [Phoslo] 667 mg PO TID 10/21/16 04/15/18 04/14/18 History Calcitriol [Rocaltrol] 0.25 mcg PO QDAY #30 capsule 01/08/17 04/15/18 04/14/18 Rx Carvedilol [Coreg] 12.5 mg PO BID #60 tablet 01/08/17 04/15/18 04/14/18 Rx Famotidine [Pepcid] 20 mg PO QAM #30 tablet 01/08/17 04/15/18 04/14/18 Rx Mirtazapine [Remeron] 15 mg PO QHS 03/01/17 04/15/18 04/14/18 History ALBUTEROL Inhaler [ProAir HFA 2 puff IH QID PRN #1 unit 04/05/18 04/15/18 Rx Inhaler] ALBUTEROL NEB's [Proventil 0.083% 2.5 mg IH Q4HRT PRN #30 nebu 04/05/1804/14/18 Rx NEBS] Acetaminophen [Acetaminophen TAB] 650 mg PO Q4H PRN #30 tablet 04/05/18 Unknown Rx Epoetin Clint 10,000 Unit [Procrit] 10,000 unit IV MERE vial 04/05/18 04/15/18 Rx amLODIPine [Norvasc] 10 mg PO DAILY #30 tablet 04/05/18 04/15/18 04/14/18 Rx oxyCODONE [Roxicodone TAB] 5 mg PO BID PRN #10 tablet 04/05/18 04/15/18 03:00 Rx Active Medications Cefazolin Sodium (Ancef/Sterile Water 2 Gm/20 Ml) 2 gm in 20 mls @ 80 mls/hr IV PREOP NR; Protocol Stop: 04/15/18 23:00 Last Admin: 04/15/18 13:21 Dose: 20 mls - Brief post op/procedure progress note Date of procedure: 04/15/18 Pre-op diagnosis: Dialysis access malfunction Post-op diagnosis: same Procedure: Right ij permcath placement Anesthesia: local Surgeon: ROSA ESCALANTE Estimated blood loss: minimal Pathology: none Condition: stable - Disposition Condition at discharge: Good Disposition: DC-01 TO HOME OR SELFCARE Short Stay Discharge Plan Activity: advance as tolerated Weight Bearing Status: Weight Bear as Tolerated Diet: regular Wound: keep clean and dry, per your surgeon's advice Follow up with: PRIMARY CARE, [Primary Care Provider] - 7 Days Forms: AVG Arteriogram D/CInstruction
[2018-04-15 15:29] VITALS: BP 191/75
--- NOTE | 2018-04-15 15:29 | Operative Report ---
Operative Report Operative Report: Exam: Ultrasound and fluoroscopic guided placement of tunneled hemodialysis catheter Clinical indication: Patient with malfunctioning left upper extremity AV graft with chronic central venous occlusion Date: 04/15/2018 Procedure: Following an explanation of the risks, benefits and alternatives; written informed consent was obtained. The patient was brought the angiographic suite and placed in supine position on the examination table. Initial ultrasound evaluation of the neck demonstrated a patent right internal jugular vein proximally. The patient's right neck and chest wall were prepped and draped in usual sterile fashion. 1% lidocaine was used for anesthesia. Under ultrasound guidance, the right internal jugular vein was cannulated with a 7 cm 18-gauge needle. A 0.035 guidewire was advanced centrally however would not advance more than 2-3 cm distal within the internal jugular vein. The needle was removed and the outer portion of a micro-sheath placed. Contrast was injected which demonstrates occlusion of the internal jugular vein on the right just distal to the cannulation site. Multiple guidewires were utilized in an attempt across this occlusion without success. Additional ultrasound evaluation of the neck demonstrated a patent right subclavian vein. Additional 1% lidocaine was used for anesthesia. The right subclavian vein was cannulated with a 7 cm 21-gauge needle. A 0.018 guidewire was advanced centrally. The needle was removed and a micro-sheath placed. The 0.018 guidewire was exchanged for a 0.035 guidewire and the guidewire advanced into the IVC to document intravenous positioning. An appropriate catheter exit site was chosen along the lateral right chest wall. 1% lidocaine was used for anesthesia at the catheter exit site and along from tract. A Bard 23 cm glidepath tunneled hemodialysis catheter was then tunneled antegrade from the catheter exit site to the venotomy site. Following serial dilation over the guidewire under fluoroscopy, a 16 [place] peel -away sheath was placed over the guidewire under fluoroscopy and advanced to the proximal right atrium. The trocar and guidewire were removed and the catheter inserted through the peel-away sheath. The peel-away sheath was removed. Catheter tip was positioned in the proximal right atrium. Both ports flushed and aspirated easily and were then locked with appropriate volumes heparin. The venotomy was proximal mated using 3-0 Vicryl suture and Dermabond. Dermabond was also applied to the catheter exit site. The patient tolerated the procedure well. There were no immediate post procedure complications. Conscious sedation was performed the guidance of radiologic nursing. Continuous cardiopulmonary monitoring was utilized. Impression: 1) Ultrasound and fluoroscopic guided placement of a 23 cm glidepath tunneled hemodialysis catheter via the right subclavian vein.
== END 2018-04-15 15:20 | disposition home or self-care (01) ==
LOC: CATHLABREC 11:19
PROVIDERS: ATTEND Radiology Diagnostic Radiology
DX: T82.590A Other mechanical complication of surgically created arteriovenous fistula, initial encounter (principal); E11.22 Type 2 diabetes mellitus with diabetic chronic kidney disease; I13.2 Hypertensive heart and chronic kidney disease with heart failure and with stage 5 chronic kidney disease, or end stage renal disease; N18.6 End stage renal disease; I50.9 Heart failure, unspecified; J44.9 Chronic obstructive pulmonary disease, unspecified; Y83.2 Surgical operation with anastomosis, bypass or graft as the cause of abnormal reaction of the patient, or of later complication, without mention of misadventure at the time of the procedure; Z93.3 Colostomy status; Z98.890 Other specified postprocedural states; Z99.2 Dependence on renal dialysis; Z87.891 Personal history of nicotine dependence
CPT/HCPCS: 36415; 36561; 77001; 84132; C1750; C1751; C1769; J0690; J1644; J2250; J3010; J7050; 36558

== ENCOUNTER 2019-05-06 07:48 | Day surgery (SDC) | payer MEDICARE ==
--- NOTE | 2019-05-06 08:44 | Anesthesia Day of Surgery ---
Anesthesia Day of Surgery - Day of Surgery Patient Examined: Yes Patient H&P Reviewed: Yes Patient is NPO: Yes Beta Blockers: Yes
--- NOTE | 2019-05-06 08:49 | Anesthesia Consultation ---
Anesthesia Consult and Med Hx Date of service: 05/06/19 - Airway Anesthetic Teeth Evaluation: Dentures, Edentulous (Edentulous upper) ROM Head & Neck: Adequate Mental/Hyoid Distance: Adequate Mallampati Class: Class II Intubation Access Assessment: Good - Pre-Operative Health Status ASA Pre-Surgery Classification: ASA3 Proposed Anesthetic Plan: General - Pulmonary Hx Smoking: Yes (QUIT IN 2010) Hx Asthma: Yes COPD: Yes (Can climb a flight of stairs; back pain limits) Hx Sleep Apnea: No - Cardiovascular System Hx Hypertension: Yes Hx Heart Attack/AMI: Yes (CHF 7-8 years ago) Hx Percutaneous Transluminal Coronary Angioplasty (PTCA): No Hx Cardia Arrhythmia: No - Central Nervous System Hx Seizures: No CVA: No Hx Psychiatric Problems: Yes - Gastrointestinal Hx Ulcer: No (Colostomy) - Endocrine Hx Renal Disease: Yes (Last HD yesterday) Hx End Stage Renal Disease: Yes Hx Insulin Dependent Diabetes: Yes (Off meds a year ago) Hx Thyroid Disease: No Hx Hypothyroidism: No - Hematic Hx Anemia: Yes - Other Systems Hx Cancer: No
[2019-05-06] MEDS ORDERED: SUBLIMAZE IV PRN (09:00)
[2019-05-06] MEDS ORDERED: ZOFRAN IV PRN (09:00)
[2019-05-06] MEDS ORDERED: DIPRIVAN 10 MG/ML IV ONE (10:57)
[2019-05-06] MEDS ORDERED: SUBLIMAZE ONE (10:58)
[2019-05-06] MEDS ORDERED: XYLOCAINE MPF 2% ONE (11:02)
[2019-05-06] MEDS ORDERED: ROBINUL ONE (11:46)
[2019-05-06] MEDS ORDERED: NACL 0.9% IR ONE (11:55)
[2019-05-06] MEDS ORDERED: MARCAINE-EPI 0.5%-1:200,000 INFILTRATI ONE (11:55)
[2019-05-06] MEDS ORDERED: HEPARIN 10,000 UNITS/10 ML IV ONE (11:55)
[2019-05-06] MEDS ORDERED: RIFADIN IV ONE (11:55)
[2019-05-06] MEDS ORDERED: NACL 0.9% 500 ML IRRIGATION ONE (11:55)
[2019-05-06] MEDS ORDERED: PHENYLEPHRINE/NS Syringe 1,000 MCG/10 ML IV ONE (12:48)
[2019-05-06] MEDS ORDERED: ZOFRAN ONE (12:53)
--- NOTE | 2019-05-06 13:14 | Short Stay Summary ---
Short Stay Documentation Date of service: 05/06/19 - History H&P: obtained from office - Allergies and Medications Current Medications: Allergies No Known Allergies Allergy (Verified 03/18/15 10:53) Home Medications Medication Instructions Recorded Confirmed Last Taken Type RX: Calcium Acetate [Phoslo] 667 mg PO TID 10/21/16 05/06/19 05/05/19 08:00 History RX: Calcitriol [Rocaltrol] 0.25 mcg PO QDAY #30 capsule 01/08/17 04/15/18 05/05/19 18:00 Rx RX: Carvedilol [Coreg] 12.5 mg PO BID #60 tablet 01/08/17 05/06/19 05/06/19 06:00 Rx RX: Famotidine [Pepcid] 20 mg PO QAM #30 tablet 01/08/17 05/06/19 04/14/18 Rx RX: Mirtazapine [Remeron 15mg TAB] 15 mg PO QHS 03/01/17 05/06/19 04/14/18 History RX: ALBUTEROL Inhaler (OR & NICU) 2 puff IH QID PRN #1 unit 04/05/18 05/06/19 12/30/18 06:00 Rx [ProAir HFA Inhaler] RX: ALBUTEROL NEB's [Proventil 2.5 mg IH Q4HRT PRN #30 nebu 04/05/18 05/06/19 12/30/18 06:00 Rx 0.083% NEBS] RX: Acetaminophen [Acetaminophen 650 mg PO Q4H PRN #30 tablet 04/05/18 05/06/19 Unknown Rx TAB] RX: Epoetin Clint 10,000 Unit 10,000 unit IV MERE vial 04/05/18 05/06/19 05/05/19 09:00 Rx [Procrit] RX: amLODIPine [Norvasc] 10 mg PO DAILY #30 tablet 04/05/18 05/06/19 05/06/19 06:00 Rx RX: oxyCODONE [roxiCODONE] 5 mg PO BID PRN #10 tablet 04/05/18 05/06/19 04/15/18 03:00 Rx Active Medications Fentanyl (Sublimaze) 50 mcg IV Q5MIN PRN PRN Reason: Pain , Severe (7-10) Stop: 05/06/19 17:00 Sodium Chloride (Nacl 0.9% 1000 Ml) 1,000 mls @ 42 mls/hr IV DIRECT YAMILETH Last Admin: 05/06/19 08:50 Dose: 42 mls/hr Documented by: Cefazolin Sodium (Ancef/Sterile Water 2 Gm/20 Ml) 2 gm in 20 mls @ 80 mls/hr IV PREOP NR; Protocol Stop: 05/06/19 23:59 Ondansetron HCl (Zofran) 4 mg IV ONCE PRN PRN Reason: Nausea And Vomiting Stop: 05/06/19 18:00 - Brief post op/procedure progress note Date of procedure: 05/06/19 Pre-op diagnosis: end stage renal disease Post-op diagnosis: same Procedure: Left upper extremity brachial artery to axillary vein bridge graft using 5 mm bovine Anesthesia: GETA, local Findings: Excellent thrill in the graft at the end of the procedure. Easily audible Doppler signals at both the radial and ulnar arteries in the left wrist at the end of the procedure. Surgeon: OMAR BAUTISTA Architecture Intern: JENNIFER STOVALL Estimated blood loss: 50-100ml Pathology: none Condition: stable - Hospital course Hospital course: Benign - Disposition Condition at discharge: Good Disposition: DC-01 TO HOME OR SELFCARE Short Stay Discharge Plan Activity: advance as tolerated Diet: advance as tolerated Wound: per your surgeon's advice Follow up with: OMAR BAUTISTA MD [Staff Physician] - 14 Days Prescriptions: HYDROcodone/APAP 5-325 [[place] 5/325] 1 each PO Q6HR PRN #30 tablet PRN Reason: Pain
--- NOTE | 2019-05-06 13:22 | Operative Report ---
Operative Report Operative Report: Left Upper Extremity Arteriovenous Graft Date of procedure: 05/06/2019 Preoperative diagnosis: End-stage renal failure Postoperative diagnosis: Same Procedure: Left upper extremity brachial artery to axillary vein bridge graft using 5 mm bovine Surgeon: Pranay Marshall MD FSVS FACS Transportation Lead: Sd Dill PAC Anesthesia: Gen. with local supplementation Estimated blood loss: Less than 50 mL Operative indication: Patient is a 88-year-old woman with end-stage renal failure who is now catheter dependent on dialysis. She presents now for placement of left upper extremity arterial venous graft. Operative findings: Excellent thrill in the R Carole venous graft at the end of the procedure. Easily audible bladder signals in both the radial and ulnar arteries of the left upper extremity at the end of the procedure. Operative description: The patient was placed on the table in supine position. She was given appropriate anesthesia. There were the left arm was prepped with ChloraPrep kitty ution and draped in usual sterile fashion. Real-time ultrasound guidance was used to identify the vasculature of the left upper extremity. The brachial artery appeared to be of appropriate caliber but only in the upper arm. The brachial artery bifurcated just after the elbow joint which would've made anastomosis below the elbow somewhat difficult to stay on the brachial artery. The veins in the lower forearm and at the antecubital fossa were small and not suitable for outflow. The brachial vein above the elbow was somewhat more reasonable. The axillary vein was widely patent and of good caliber up to the axilla. The decision was made to make a brachial artery to axillary vein bridge graft around the thrombosed graft which was already in the arm. Half percent Marcaine with epinephrine was used for local anesthesia. A linear incision was made of the brachial artery just proximal to the elbow. Dissection was carried out to identify this vessel and the brachial artery was surrounded with Vesseloops proximally and distally. A second incision was made in the axilla. Dissection was carried out to identify the axillary vein. There is a significant amount of scarring in the axilla. It was difficult to dissect out the proximal portion of the axillary vein. However all adjacent structures were spared. The axillary vein was surrounded with Vesseloops proximally and distally. Subcutaneous tunnel was made between the brachial incision and the axillary incision. The tunnel was infiltrated with half percent Marcaine with epinephrine. A 5 mm bovine graft was then tunneled from the axilla to the brachial incision. The venous anastomosis created first. A venotomy of approximately 10-12 mm was made and the axillary vein. An end-to-side anastomosis was created using ru nning 6-0 Prolene. The anastomosis was not completed. A 4-5 mm arteriotomy was made in the brachial artery. The other end of the graft was tailored appropriately and sewn into place using running 6-0 Prolene. The graft was flushed and then remove any air or debris. Flow started into the graft with the development of a thrill. The venous sutures were tied under mild pressure to prevent any narrowing of the anastomosis. Meticulous hemostasis was obtained. Closure was done with 3-0 Vicryl the subcutaneous tissue. The skin was closed with 4 subcuticular PDS. Sterile dressings were applied. The patient tolerated the procedure well. She had an easily palpable thrill in the arteriovenous graft. She had easily audible multiphasic Doppler signals in both the radial and ulnar artery stent at the wrist on the left side. Sponge, needle and instrument counts were reported as correct. She sent from the operating room to the recovery room in stable condition.
[2019-05-06 15:26] VITALS: BP 138/63
--- NOTE | 2019-05-07 09:49 | Post Anesthesia Evaluation ---
- Post Anesthesia Evaluation Patient Participated: Yes Airway Patent: Yes Stable Respiratory Function: Yes Nausea/Vomiting: No Temp > 96.8F: Yes Pain Manageable: Yes Adequeate Hydration: Yes Anesthesia Complications: No Block Receding Appropriately: Not Applicable Patient on Ventilator: No
== END 2019-05-06 07:49 | disposition home or self-care (01) ==
LOC: OR 07:48
PROVIDERS: ATTEND Surgery Vascular Surgery
DX: I13.2 Hypertensive heart and chronic kidney disease with heart failure and with stage 5 chronic kidney disease, or end stage renal disease (principal); E11.22 Type 2 diabetes mellitus with diabetic chronic kidney disease; N18.6 End stage renal disease; I50.22 Chronic systolic (congestive) heart failure; D64.9 Anemia, unspecified; E11.621 Type 2 diabetes mellitus with foot ulcer; J44.9 Chronic obstructive pulmonary disease, unspecified; E11.40 Type 2 diabetes mellitus with diabetic neuropathy, unspecified; K21.9 Gastro-esophageal reflux disease without esophagitis; M19.90 Unspecified osteoarthritis, unspecified site; F32.9 Major depressive disorder, single episode, unspecified; M86.9 Osteomyelitis, unspecified; Z86.718 Personal history of other venous thrombosis and embolism; Z90.49 Acquired absence of other specified parts of digestive tract; Z91.81 History of falling; Z79.899 Other long term (current) drug therapy; Z87.891 Personal history of nicotine dependence; Z98.890 Other specified postprocedural states; Z83.49 Family history of other endocrine, nutritional and metabolic diseases
CPT/HCPCS: 36830; 82803; 82962; C1757; C1768; J0690; J1644; J2370; J2405; J2704; J3010; J3490; J7030; J7040

== ENCOUNTER 2019-05-09 09:07 | Emergency (ER) | payer MEDICARE ==
[2019-05-09] MEDS ORDERED: ZOFRAN IV ONE (09:39)
[2019-05-09] MEDS ORDERED: BENADRYL IV ONE (09:39)
[2019-05-09] MEDS ORDERED: DILAUDID IV ONE (09:39)
--- NOTE | 2019-05-09 09:42 | Emergency Department Report ---
ED General Adult HPI - General Chief complaint: Extremity Problem,Nontraumatic Stated complaint: L ARM PAIN/SWOLLEN Time Seen by Provider: 05/09/19 09:37 Source: patient Mode of arrival: Ambulatory Limitations: No Limitations - History of Present Illness Initial comments: 88-year-old female now status post multiple AV grafts/fistulas. She states that she previously had one in her left arm that failed. She was reticent to have it replaced in her left arm she states when her right arm fistula was failing. However, she was advised that this was her best option. She states that the vascular surgeon (Dr. Marshall) placed a fistula on Sunday as an outpatient and she was discharged from this facility. She states that her arm has been swollen and somewhat ecchymotic since. She does not report any acute swelling. She states that she does have some decreased sensation in her left arm compared to the right. It is my impression of this is not an acute symptom. She has had pain since the procedure. Family states that the actual reason that they brought her today is because they noted some blister type formation around the surgical wound. The patient does not take Plavix nor anticoagulation. She has had no fever or chills. -: Gradual, days(s) Location: left, upper extremity Quality: aching Consistency: constant Improves with: none Worsens with: none Associated Symptoms: denies other symptoms Treatments Prior to Arrival: other (hydrocodone) - Related Data Home Medications Medication Instructions Recorded Confirmed Last Taken Calcium Acetate [Phoslo] 667 mg PO TID 10/21/16 05/09/19 05/05/19 08:00 Mirtazapine [Remeron 15mg TAB] 15 mg PO QHS 03/01/17 05/09/19 04/14/18 Previous Rx's Medication Instructions Recorded Last Taken Type Calcitriol [Rocaltrol] 0.25 mcg PO QDAY #30 capsule 01/08/17 05/05/19 18:00 Rx Carvedilol [Coreg] 12.5 mg PO BID #60 tablet 01/08/17 05/06/19 06:00 Rx Famotidine [Pepcid] 20 mg PO QAM #30 tablet 01/08/17 04/14/18 Rx ALBUTEROL Inhaler (OR & NICU) 2 puff IH QID PRN #1 unit 04/05/18 12/30/18 06:00 Rx [ProAir HFA Inhaler] ALBUTEROL NEB's [Proventil 0.083% 2.5 mg IH Q4HRT PRN #30 nebu 04/05/18 12/30/18 06:00 Rx NEBS] Acetaminophen [Acetaminophen TAB] 650 mg PO Q4H PRN #30 tablet 04/05/18 Unknown Rx Epoetin Clint 10,000 Unit [Procrit] 10,000 unit IV MERE vial 04/05/18 05/05/19 09:00 Rx amLODIPine [Norvasc] 10 mg PO DAILY #30 tablet 04/05/18 05/06/19 06:00 Rx oxyCODONE [roxiCODONE] 5 mg PO BID PRN #10 tablet 04/05/18 04/15/18 03:00 Rx HYDROcodone/APAP 5-325 [Barry 1 each PO Q6HR PRN #30 tablet 05/06/19 Unknown Rx 5/325] Allergies Allergy/AdvReac Type Severity Reaction Status Date / Time No Known Allergies Allergy Verified 03/18/15 10:53 ED Review of Systems ROS: Stated complaint: L ARM PAIN/SWOLLEN Other details as noted in HPI Constitutional: denies: chills, fever Eyes: denies: eye pain, eye discharge, vision change ENT: denies: ear pain, throat pain Respiratory: denies: cough, shortness of breath, wheezing Cardiovascular: denies: chest pain, palpitations Endocrine: no symptoms reported Gastrointestinal: denies: abdominal pain, nausea, diarrhea Genitourinary: denies: urgency, dysuria, discharge Musculoskeletal: as per HPI. denies: back pain, joint swelling, arthralgia Skin: as per HPI (blister formation as above). denies: rash Neurological: denies: headache, weakness, paresthesias Psychiatric: denies: anxiety, depression Hematological/Lymphatic: denies: easy bleeding, easy bruising ED Past Medical Hx - Past Medical History Hx Hypertension: Yes Hx Heart Attack/AMI: Yes (CHF 7-8 years ago) Hx Congestive Heart Failure: Yes Hx Diabetes: Yes Hx Deep Vein Thrombosis: Yes Hx GERD: Yes Hx Renal Disease: Yes (Last HD yesterday) Hx Arthritis: Yes Hx Seizures: No Hx Asthma: Yes Hx COPD: Yes (Can climb a flight of stairs; back pain limits) Hx HIV: No Additional medical history: Anemia requiring blood transfusion - Surgical History Hx Cholecystectomy: Yes Additional Surgical History: FILTER FOR CLOTS. COLOSTOMY secondary to perforate d bowel - Social History Smoking Status: Never Smoker Substance Use Type: None - Medications Home Medications: Home Medications Medication Instructions Recorded Confirmed Last Taken Type Calcium Acetate [Phoslo] 667 mg PO TID 10/21/16 05/09/19 05/05/19 08:00 History Calcitriol [Rocaltrol] 0.25 mcg PO QDAY #30 capsule 01/08/17 05/09/19 05/05/19 18:00 Rx Carvedilol [Coreg] 12.5 mg PO BID #60 tablet 01/08/17 05/09/19 05/06/19 06:00 Rx Famotidine [Pepcid] 20 mg PO QAM #30 tablet 01/08/17 05/09/19 04/14/18 Rx Mirtazapine [Remeron 15mg TAB] 15 mg PO QHS 03/01/17 05/09/19 04/14/18 History ALBUTEROL Inhaler (OR & NICU) 2 puff IH QID PRN #1 unit 04/05/18 05/09/19 12/30/18 06:00 Rx [ProAir HFA Inhaler] ALBUTEROL NEB's [Proventil 0.083% 2.5 mg IH Q4HRT PRN #30 nebu 04/05/18 05/09/19 12/30/18 06:00 Rx NEBS] Acetaminophen [Acetaminophen TAB] 650 mg PO Q4H PRN #30 tablet 04/05/18 05/09/19 Unknown Rx Epoetin Clint 10,000 Unit [Procrit] 10,000 unit IV MERE vial 04/05/18 05/09/19 05/05/19 09:00 Rx amLODIPine [Norvasc] 10 mg PO DAILY #30 tablet 04/05/18 05/09/19 05/06/19 06:00 Rx oxyCODONE [roxiCODONE] 5 mg PO BID PRN #10 tablet 04/05/18 05/09/19 04/15/18 03:00 Rx HYDROcodone/APAP 5-325 [Barry 1 each PO Q6HR PRN #30 tablet 05/06/19 05/09/19 Unknown Rx 5/325] ED Physical Exam - General Limitations: No Limitations General appearance: alert, in no apparent distress - Head Head exam: Present: atraumatic, normocephalic - Eye Eye exam: Present: normal appearance. Absent: scleral icterus - ENT ENT exam: Present: mucous membranes moist - Neck Neck exam: Present: normal inspection - Respiratory Respiratory exam: Present: normal lung sounds bilaterally. Absent: respiratory distress - Cardiovascular Cardiovascular Exam: Present: regular rate, normal rhythm. Absent: systolic murmur, diastolic murmur, rubs, gallop - GI/Abdominal GI/Abdominal exam: Present: soft, normal bowel sounds. Absent: distended, tenderness, guarding, rebound, rigid - Extremities Exam Extremities exam: Present: other (the left arm has circumferential swelling. Surgical wounds are intact. There is some small blisters related to the distal wound. There is ecchymosis. There is no dehiscence. There is no signs of superinfection. It appears that the hand is neurovascularly intact) - Back Exam Back exam: Present: normal inspection - Neurological Exam Neurological exam: Present: alert, oriented X3, CN II-XII intact, other (patient had full motor function of her left hand and wrist. She did report some decrease in fine touch left side compared to the right.) - Psychiatric Psychiatric exam: Present: normal affect, normal mood - Skin Skin exam: Present: warm, dry, intact, normal color. Absent: rash ED Course Vital Signs 05/09/19 05/09/19 09:41 11:37 Temperature 98 F Pulse Rate 84 64 Respiratory 16 16 Rate Blood Pressure 149/69 Blood Pressure 148/60 [Left] O2 Sat by Pulse 96 96 Oximetry - Reevaluation(s) Reevaluation #1: Discussed with the vascular lab. Techs states they can do a graft study and check for DVT at the same time. They stated I could not order both by protocol. 05/09/19 09:42 Reevaluation #2: [facility] vascular surgery shortly after my initial encounter with the patient. Finally had an opportunity to speak with Sd the nurse practitioner for the group. He stated that the patient can be seen in the office today. He does not believe there is any acute medical emergency here. I do not disagree. The patient will be sent to the office. She will be given a sling. On interval exam I didn't note any progression of her swelling at all. Medics contacted seemed to be a bit less. I do not believe there is any evidence of infection here at this point. The patient will be discharged hopefully to be seen by vascular in their office. 05/09/19 13:55 ED Medical Decision Making - Lab Data Result diagrams: 05/09/19 09:48 05/09/19 01:18 Laboratory Results - last 24 hr 05/09/19 05/09/19 05/09/19 01:18 09:48 09:48 WBC 6.4 RBC 3.30 L Hgb 10.6 Hct 31.9 MCV 97 MCH 32 MCHC 33 RDW 16.6 H Plt Count 220 Lymph % (Auto) 11.9 L Jones % (Auto) 9.0 H Eos % (Auto) 12.2 H Baso % (Auto) 1.3 Lymph # 0.8 L Jones # 0.6 Eos # 0.8 H Baso # 0.1 Seg Neutrophils % 65.6 Seg Neutrophils # 4.2 PT 15.6 H INR 1.27 H APTT 29.7 Sodium 138 Potassium 3.5 L Chloride 96.6 L Carbon Dioxide 22 Anion Gap 23 BUN 65 H Creatinine 9.6 H Estimated GFR 5 BUN/Creatinine Ratio 7 Glucose 95 Lactic Acid Calcium 8.7 Magnesium 2.60 H Total Bilirubin 0.30 Direct Bilirubin < 0.2 Indirect Bilirubin 0.1 AST 14 ALT < 5 L Alkaline Phosphatase 70 Total Creatine Kinase 36 CK-MB (CK-2) < 1.0 CK-MB (CK-2) Rel Index 2.7 NT-Pro-B Natriuret Pep 2554 H Total Protein 8.3 H Albumin 4.0 Albumin/Globulin Ratio 0.9 Blood Type Antibody Screen 05/09/19 05/09/19 09:48 09:48 WBC RBC Hgb Hct MCV MCH MCHC RDW Plt Count Lymph % (Auto) Jones % (Auto) Eos % (Auto) Baso % (Auto) Lymph # Jones # Eos # Baso # Seg Neutrophils % Seg Neutrophils # PT INR APTT Sodium Potassium Chloride Carbon Dioxide Anion Gap BUN Creatinine Estimated GFR BUN/Creatinine Ratio Glucose Lactic Acid 1.00 Calcium Magnesium Total Bilirubin Direct Bilirubin Indirect Bilirubin AST ALT Alkaline Phosphatase Total Creatine Kinase CK-MB (CK-2) CK-MB (CK-2) Rel Index NT-Pro-B Natriuret Pep Total Protein Albumin Albumin/Globulin Ratio Blood Type B POSITIVE Antibody Screen Negative Critical care attestation.: If time is entered above; I have spent that time in minutes in the direct care of this critically ill patient, excluding procedure time. ED Disposition Clinical Impression: Arm edema, End stage renal disease Disposition: - TO HOME OR SELFCARE Is pt being admited?: No Does the pt Need Aspirin: No Condition: Stable Instructions: Chronic Kidney Disease (ED) Additional Instructions: Use arm sling. The vascular surgeons would like you to come to the office now for evaluation. Return for any acute change or worsening symptoms. Referrals: VANDANA ALEMAN MD [Staff Physician] - [facility] Time of Disposition: 13:58
[2019-05-09 10:17] LABS: Basophils # (Auto) 0.1 K/mm3 (0.0-0.1); Basophils % (Auto) 1.3 % (0.0-1.8); Eosinophils # (Auto) 0.8 K/mm3 (0.0-0.4); Eosinophils % (Auto) 12.2 % (0.0-4.3); Hematocrit 31.9 % (30.3-42.9); Hemoglobin 10.6 gm/dl (10.1-14.3); Lymphocytes # (Auto) 0.8 K/mm3 (1.2-5.4); Lymphocytes % (Auto) 11.9 % (13.4-35.0); Mean Corpuscular HGB Conc 33 % (30-34); Mean Corpuscular Volume 97 fl (79-97); Monocytes # (Auto) 0.6 K/mm3 (0.0-0.8); Platelet Count 220 K/mm3 (140-440); Red Cell Distribution Width 16.6 % (13.2-15.2)
[2019-05-09 10:25] LABS: INR 1.27 (0.87-1.13)
[2019-05-09 10:26] LABS: Partial Thromboplastin Time 29.7 Sec. (24.2-36.6)
[2019-05-09 10:45] LABS: BUN/Creatinine Ratio 7; Blood Urea Nitrogen 65 mg/dL (7-17); Calcium 8.7 mg/dL (8.4-10.2); Hemolysis Index 1
[2019-05-09 10:46] LABS: Creatine Kinase MB < 1.0 ng/mL (0.0-4.0)
[2019-05-09 10:47] LABS: Alanine Aminotransferase < 5 units/L (7-56); Bilirubin,Direct < 0.2 mg/dL (0-0.2)
[2019-05-09 13:51] VITALS: BP 134/102
--- NOTE | 2019-05-09 14:00 | Vascular Lab Report ---
DOPPLER ULTRASOUND UPPER EXTREMITY VASCULAR, INDICATION / CLINICAL INFORMATION: painful arm status post AV graft TECHNIQUE: Grayscale, color and spectral Doppler imaging of the venous system of the upper extremity was perform ed. COMPARISON: None available. FINDINGS: AV FISTULA - Location: The AV fistula graft extends from the left brachial artery in the antecubital fossa region to the left axillary vein. The graft is patent on color Doppler imaging. No evidence for aneurysm or stenosis. Peak systolic velocity in the brachial artery measures 61 cm/s. Inflow peak systolic velocity measures 367 cm/s. Peak systolic velocities along the antecubital fossa, distal biceps, mid biceps and proximal biceps m easures 309, 218, 150, and 169 cm/s. Outflow peak systolic velocity measures 209 cm/s. Peak systolic velocity in the left axillary vein measures 160 cm/s. Volume flow ranges from 721-1084 mL/m. Additional Findings: There is a small amount of fluid along the graft near the antecubital fossa whic h could represent an infected graft. IMPRESSION: 1. Patent AV fistula/graft with measurements as above. Probable graft infection. Signer Name: Jose A Gann Jr, MD Signed: 05/09/2019 1:55 PM Workstation Name: [id number]
== END 2019-05-09 15:17 | disposition home or self-care (01) ==
LOC: ED 09:07
DX: I13.2 Hypertensive heart and chronic kidney disease with heart failure and with stage 5 chronic kidney disease, or end stage renal disease (principal); E11.22 Type 2 diabetes mellitus with diabetic chronic kidney disease; N18.6 End stage renal disease; R60.1 Generalized edema; I50.9 Heart failure, unspecified; I25.2 Old myocardial infarction; K21.0 Gastro-esophageal reflux disease with esophagitis; M19.90 Unspecified osteoarthritis, unspecified site; J44.9 Chronic obstructive pulmonary disease, unspecified; Z86.718 Personal history of other venous thrombosis and embolism; Z99.2 Dependence on renal dialysis; Z79.4 Long term (current) use of insulin; Z90.49 Acquired absence of other specified parts of digestive tract; Z79.899 Other long term (current) drug therapy
CPT/HCPCS: 36415; 80048; 80076; 82140; 82550; 82553; 83735; 83880; 85025; 85610; 85730; 86850; 86900; 86901; 93990; 96374; 96375; 99284; J1170; J1200; J2405